=== PATIENT | female | born 1940 | race Caucasian/White ===

== ENCOUNTER → 2020-05-28 09:39 | Outpatient (BNVA) | payer MEDICARE, OTHER, SELFPAY | PROVIDERS: PCP Internal Medicine; Referring Provider Internal Medicine; Visit Provider Internal Medicine Cardiovascular Disease | DX: R06.02 Shortness of breath (principal); I11.9 Hypertensive heart disease without heart failure | CPT/HCPCS: 93000; 93005; 99214 ==

== ENCOUNTER 2020-07-03 06:19 | Outpatient (REF) | payer MEDICARE, OTHER, SELFPAY ==
[2020-07-03 11:43] LABS: Hematocrit 37.6 % (37-47); Hemoglobin 11.6 g/dl (12.0-16.0); Mean Corpuscular HGB Conc 30.9 g/dl (31.0-35.0); Mean Corpuscular Hemoglobin 28.4 pg (27.0-33.0); Mean Corpuscular Volume 92.2 fL (80-98); Mean Platelet Volume 10.7 fL (9.4-12.3); Platelet Count 230 X10*3/uL (160-400); Red Blood Count 4.08 X10*6/uL (4.20-5.50); Red Cell Distribution Width 14.8 % (11.0-16.0); White Blood Count 9.4 X10*3/uL (4.8-10.8)
[2020-07-03 11:54] LABS: Estimated Average Glucose 154 mg/dL
[2020-07-03 11:58] LABS: Creatinine Urine 115.28 mg/dL
[2020-07-03 12:17] LABS: Alanine Aminotransferase 17 U/L (0-31); Alkaline Phosphatase 118 U/L (39-117); Anion Gap 12 (12-20); Aspartate Amino Transferase 16 U/L (5-31); Bilirubin Total 0.5 mg/dL (0.0-1.0); Blood Urea Nitrogen 25 mg/dL (9-16); Calcium 9.1 mg/dL (8.4-10.2); Carbon Dioxide 28 mmol/L (22-29); Chloride 107 mmol/L (96-108); Cholesterol 178 mg/dL; Estimated Glomerular Filt Rate > 60; Glucose Fasting 135 mg/dL (60-99); HDL Cholesterol 38 mg/dL; LDL Cholesterol Calculated 111 mg/dl; Potassium 4.4 mmol/l (3.3-5.1); Sodium 143 mmol/L (135-145); Total Protein 6.5 g/dL (6.5-8.0); Triglycerides 147 mg/dL
== END 2020-07-03 06:20 | disposition home or self-care (01) ==
LOC: HO.HMGCLDS 06:19
PROVIDERS: PCP Internal Medicine; Visit Provider Internal Medicine
DX: M81.0 Age-related osteoporosis without current pathological fracture (principal); E11.9 Type 2 diabetes mellitus without complications; I10 Essential (primary) hypertension
CPT/HCPCS: 36415; 80053; 80061; 82043; 83036; 85027

== ENCOUNTER 2020-07-22 08:21 | Outpatient (REF) | payer MEDICARE, OTHER, SELFPAY | END 2020-07-22 08:22 | disposition home or self-care (01) | LOC: HO.LAB 08:21 | PROVIDERS: PCP Internal Medicine; Visit Provider Internal Medicine | DX: Z20.828 Contact with and (suspected) exposure to other viral communicable diseases (principal) | CPT/HCPCS: C9803; U0003 ==

== ENCOUNTER 2020-11-13 11:01 | Outpatient (REF) | payer MEDICARE, OTHER, SELFPAY ==
--- NOTE | ~2020-11-13 | MM_ITS ---
EXAMINATION: MM SCREENING DIGITAL BREAST TOMOSYNTHESIS, BILATERAL CLINICAL INFORMATION: Screening. Asymptomatic. Status post right lumpectomy. COMPARISON: Mammography: February 27, 2019 and studies dating back to October 06, 2011 TECHNIQUE: Digital breast tomosynthesis is performed in both the craniocaudal and mediolateral oblique views along with computer-aided detection (CAD). Synthesized 2D images are generated from the tomosynthesis. FINDINGS: There are scattered areas of fibroglandular density (ACR BI-RADS breast composition Category b). No new abnormal dominant mass is appreciated. Patient is status post right lumpectomy with postsurgical change. Prominent vascular calcifications are present. MM/MM tomosynthesis screening BI IMPRESSION: There are no significant changes from prior study. ASSESSMENT: BI-RADS 2: Benign RECOMMENDATION: Routine annual mammography screening. This patient's information was entered into a reminder system with a target due date for their next mammogram.
== END 2020-11-13 11:02 | disposition home or self-care (01) ==
LOC: HO.MAMMO 11:01
PROVIDERS: PCP Internal Medicine; Visit Provider Internal Medicine
DX: Z12.31 Encounter for screening mammogram for malignant neoplasm of breast (principal)
CPT/HCPCS: 77063; 77067

== ENCOUNTER → 2021-01-08 10:47 | Outpatient (BNVA) | payer MEDICARE, OTHER, SELFPAY | PROVIDERS: PCP Internal Medicine; Visit Provider Orthopaedic Surgery | DX: M65.331 Trigger finger, right middle finger (principal); M67.441 Ganglion, right hand | CPT/HCPCS: 20550; 99202; J1100 ==

== ENCOUNTER 2021-01-20 09:59 | Outpatient (REF) | payer MEDICARE, OTHER, SELFPAY ==
[2021-01-20 11:26] LABS: Estimated Average Glucose 169 mg/dL; Hemoglobin A1c % 7.5 %
[2021-01-20 11:41] LABS: Alanine Aminotransferase 17 U/L (0-31); Albumin Level 3.9 g/dL (3.5-5.0); Alkaline Phosphatase 95 U/L (39-117); Anion Gap 14 (12-20); Aspartate Amino Transferase 15 U/L (5-31); Bilirubin Total 0.4 mg/dL (0.0-1.0); Blood Urea Nitrogen 15 mg/dL (9-16); Calcium 9.1 mg/dL (8.4-10.2); Carbon Dioxide 23 mmol/L (22-29); Chloride 108 mmol/L (96-108); Estimated Glomerular Filt Rate > 60; Glucose Random 186 mg/dL (60-115); Potassium 4.1 mmol/L (3.3-5.1); Sodium 141 mmol/L (135-145); Total Protein 6.4 g/dL (6.5-8.0)
== END 2021-01-20 10:00 | disposition home or self-care (01) ==
LOC: HO.HMGCLDS 09:59
PROVIDERS: PCP Internal Medicine; Visit Provider Internal Medicine
DX: E11.9 Type 2 diabetes mellitus without complications (principal); I10 Essential (primary) hypertension; M81.0 Age-related osteoporosis without current pathological fracture
CPT/HCPCS: 36415; 80053; 83036

== ENCOUNTER 2021-02-20 12:51 | Outpatient (REF) | payer MEDICARE, OTHER, SELFPAY ==
--- NOTE | ~2021-02-20 | MM_ITS ---
EXAMINATION: BONE DENSITOMETRY CLINICAL INDICATION: Age-related osteoporosis without current pathological fracture. COMPARISON: Previous BD dated 10/25/2018 and baseline BD dated 11/02/2007. TECHNIQUE: Using a POI DXA System (software version: 13.1) manufactured by [employer], dual-energy x-ray absorptiometry was performed of the lumbar spine and left hip. The images are of good technical quality. Summary results are attached. FINDINGS: AP SPINE L1-L3 (excluding L4): The data of L1-L4 has been changed to exclude the L4 vertebral body, because degenerative changes at this level may cause overestimation of lumbar spine density. Current: BMD 1.099 g/cm2, Z-score 1.1, T-score -0.6, normal, 11.6% increase from previous, 8.6% increase from baseline (<5% change is not significant). Prior: BMD 0.985 g/cm2. Baseline: BMD 1.012 g/cm2. LEFT FEMUR, NECK: Current: BMD 0.616 g/cm2, Z-score -0.9, T-score -3.0, osteoporosis. Prior: BMD 0.627 g/cm2. Baseline: BMD 0.752 g/cm2. LEFT FEMUR, TOTAL: Current: BMD 0.680 g/cm2, Z-score -0.6, T-score -2.6, osteoporosis, 3.7% decrease from previous, 16.7% decrease from baseline (<5% change is not significant). Prior: BMD 0.706 g/cm2. Baseline: BMD 0.816 g/cm2. IDENTIFIED RISK FACTORS: Osteoporosis, family history (parental hip fracture). Early menopause, secondary osteoporosis, glucocorticoids (chronic), hysterectomy, bilateral oophorectomy. HISTORY OF FRACTURE: None listed. MEDICATIONS: Calcium supplements or multivitamin, vitamin D. MM/XR DEXA axial skeleton IMPRESSION: 1. DIAGNOSIS: Osteoporosis based on the lowest T-score value of -3.0 in the femoral neck applying World Health Organization criteria. 2. 10-YEAR FRACTURE RISK PREDICTION, FRAX: Major osteoporotic fracture (clinical spine, forearm, hip or shoulder) 59.5%. Hip fracture 50.0%. 3. Treatment Recommendations: NOF guidelines recommend consideration for treatment in postmenopausal women and men age 50 and older presenting with the following: -A hip or vertebral (clinical or morphometric) fracture. -T-score less than or equal to -2.5 at the femoral neck or spine after appropriate evaluation to exclude secondary causes. -Low bone mass at the hip or spine and a 10-year fracture probability by FRAX of greater than or equal to 3% for hip fracture or greater than or equal to 20% for major osteoporotic fracture based on the [place] adapted WHO algorithm. 4. Other Recommendations: All treatment decisions require clinical judgment and consideration of individual patient factors, including patient preferences, comorbidities, previous drug use, risk factors not captured in the FRAX model (e.g. frailty, falls, vitamin D deficiency, increased bone turnover, interval significant decline in bone density) and possible under or overestimation of fracture risk by FRAX. Additional medical evaluation for secondary cause of low bone mineral density may be appropriate. FUTURE SCAN RECOMMENDATION: People with diagnosed cases of osteoporosis or at high risk for fracture should have regular bone mineral density tests. For patients eligible for Medicare, routine testing is allowed once every 2 years. The testing frequency can be increased to one year for patients who have rapidly progressing disease, those who are receiving or discontinuing medical therapy to restore bone mass, or have additional risk factors.
== END 2021-02-20 12:52 | disposition home or self-care (01) ==
LOC: HO.MAMMO 12:51
PROVIDERS: Visit Provider Internal Medicine
DX: Z13.820 Encounter for screening for osteoporosis (principal); M81.0 Age-related osteoporosis without current pathological fracture; E27.49 Other adrenocortical insufficiency; Z87.81 Personal history of (healed) traumatic fracture; Z78.0 Asymptomatic menopausal state; Z98.890 Other specified postprocedural states; Z90.722 Acquired absence of ovaries, bilateral; Z79.899 Other long term (current) drug therapy
CPT/HCPCS: 77080

== ENCOUNTER → 2021-02-25 12:25 | Outpatient (BNVA) | payer MEDICARE, OTHER, SELFPAY | PROVIDERS: PCP Internal Medicine; Visit Provider Orthopaedic Surgery | DX: M67.40 Ganglion, unspecified site (principal); M65.331 Trigger finger, right middle finger | CPT/HCPCS: 99212 ==

== ENCOUNTER 2021-03-13 12:27 | Day surgery (SDC) | payer MEDICARE, OTHER, SELFPAY ==
[2021-03-13 13:26] VITALS: BP 138/57; PULSE 61; RESP 18; TEMP 36.8; O2SAT 97; BMI 28.7
[2021-03-13 13:37] LABS: Glucose, Whole Blood 151 mg/dL (60-115)
--- NOTE | 2021-03-13 15:02 | PC.NURSE ---
PATIENT TRANSFERRED TO PACU. DR. Guanakito KOWALSKI GAVE THE BLOCK AT BEDSIDE. REPORT GIVEN TO AIRPORT SHUTTLE DRIVER.
--- NOTE | 2021-03-13 16:11 | P.OP_ITS ---
Operative Note Operative Note Date of Service: 03/13/21 Narrative: Operative Note Preop diagnosis: 1. Right middle finger Trigger finger Postop diagnosis: 1. Right middle finger Trigger finger Procedure: 1. Right middle finger A1 rikki release Surgeon: Sveta Nelson MD Anesthesia: local block using 1% lidocaine with epinephrine Findings: No locking or catching after A1 rikki release EBL: Less than 5 mL Tourniquet time: None Specimens: None Complications: None Disposition: Brought to recovery room in stable condition Plan: Follow-up for 7-10 days for wound check and suture removal Indications: The patient is 80 years old, with a right middle finger trigger finger that has been unresponsive to nonoperative management. The risks and benefits of operative treatment including but not limited to risk of damage to blood vessels, nerves, tendons, infection, persistent pain, persistent symptoms, recurrence or possible need for additional surgery were discussed with the patient and the patient wishes to proceed with surgery. Procedure: Once consent was obtained a local block was performed in the preop area using a combination of 1% lidocaine with epinephrine. The patient was then brought back to the operating suite and placed on the operative table in supine position. A tourniquet was applied to the proximal aspect of the right upper extremity and the limb was prepped and draped in a standard surgical fashion. Once assured that we had a good block, a 1.5 cm oblique incision was made centered over the A1 rikki of the right middle finger . The incision was made through the skin to the subcutaneous tissues using a #15 blade. Careful dissection was made down to the level of the A1 rikki using tenotomy scissors, with care being taken to protect the nearby neurovascular structures. A longitudinal incision was made in the A1 rikki 1st using a #15 blade, then using tenotomy scissors under direct visualization. The A1 rikki was noted to be thickened. Following our A1 rikki release, we no longer saw any locking or catching of the digit with flexion and extension. Once satisfied with our A1 rikki release the wound was copiously irrigated with normal saline and hemostasis was obtained with a brief period of local pressure. The skin edges were reapproximated with some 5.0 nylon suture material and a sterile dressing was applied. The patient appears to have tolerated the procedure well and with no co mplications. All digits were well vascularized at the conclusion of the case.
--- NOTE | 2021-03-13 16:11 | MHC.SHP ---
Pre-Procedural Eval Section A Date of Service: 03/13/21 The patient is an INPATIENT: No Changes since office visit: No Cold of Flu in the past 2 weeks, No New Medical Problems, No Changes in Medication and No Patient answered all questions The History & Physical has been completed within 30 days and I have reviewed it.: Yes Section B Chief Complaint: trigger finger Allergies: Allergies Allergy/AdvReac Type Severity Reaction Status Date / Time alendronate sodium Allergy Intermediate DIARRHEA Verified 02/25/21 13:04 [From FOSAMAX] ciprofloxacin [CIPROFLOXACIN] Allergy Intermediate HEADACHE,SO Verified 02/25/21 13:04 B hydrochlorothiazide Allergy Intermediate HEADACHE,DIZZINESS, Verified 02/25/21 13:04 [HYDROCHLOROTHIAZIDE] Gi upset levofloxacin [From LEVAQUIN] Allergy Intermediate HEADACHE,SO Verified 02/25/21 13:04 B metformin [METFORMIN] Allergy Intermediate DIARRHEA, Verified 02/25/21 13:04 Gi upset pravastatin [PRAVASTATIN] Allergy Intermediate HEADACHE,SOB, Verified 02/25/21 13:04 Gi upset simvastatin [SIMVASTATIN] Allergy Intermediate HEADACHE,SOB, Verified 02/25/21 13:04 Gi upset canagliflozin [From INVOKANA] AdvReac Intermediate DIARRHEA Verified 02/25/21 13:04 dapagliflozin [From FARXIGA] AdvReac Intermediate DIARRHEA Verified 02/25/21 13:04 From PERCOCET AdvReac Mild NAUSEA Uncoded 01/08/21 11:19 Plan I have reviewed the history and physical and performed a pertinent physical examination on my patient. No changes have occurred unless specified.
[2021-03-13 17:10] VITALS: BP 156/59; PULSE 72; RESP 18; TEMP 36.4; O2SAT 96
[2021-03-13 17:25] VITALS: BP 147/71; PULSE 76; RESP 17; TEMP 36.6; O2SAT 97
== END 2021-03-13 17:33 | disposition home or self-care (01) ==
PROVIDERS: PCP Internal Medicine; Visit Provider Orthopaedic Surgery
PROC: (CPT 26055; principal; 2021-03-13 14:40)
DX: M65.331 Trigger finger, right middle finger (principal); I10 Essential (primary) hypertension; E11.9 Type 2 diabetes mellitus without complications; Z88.8 Allergy status to other drugs, medicaments and biological substances; Z88.1 Allergy status to other antibiotic agents
CPT/HCPCS: 26055; 82947

== ENCOUNTER → 2021-03-24 13:34 | Outpatient (BNVA) | payer MEDICARE, OTHER, SELFPAY | PROVIDERS: Visit Provider Orthopaedic Surgery | DX: Z09 Encounter for follow-up examination after completed treatment for conditions other than malignant neoplasm (principal); Z87.39 Personal history of other diseases of the musculoskeletal system and connective tissue | CPT/HCPCS: 99212 ==

== ENCOUNTER 2021-05-20 06:45 | Outpatient (REF) | payer MEDICARE, OTHER, SELFPAY ==
[2021-05-20 12:00] LABS: Alanine Aminotransferase 19 U/L (0-31); Albumin Level 3.9 g/dL (3.5-5.0); Alkaline Phosphatase 81 U/L (39-117); Anion Gap 11 (12-20); Aspartate Amino Transferase 16 U/L (5-31); Bilirubin Total 0.6 mg/dL (0.0-1.0); Blood Urea Nitrogen 15 mg/dL (9-16); Calcium 9.2 mg/dL (8.4-10.2); Carbon Dioxide 26 mmol/L (22-29); Chloride 108 mmol/L (96-108); Cholesterol 175 mg/dL; Estimated Average Glucose 160 mg/dL; Estimated Glomerular Filt Rate > 60; Glucose Fasting 170 mg/dL (60-99); HDL Cholesterol 37 mg/dL; Hemoglobin A1c % 7.2 %; LDL Cholesterol Calculated 109 mg/dl; Potassium 4.2 mmol/L (3.3-5.1); Sodium 141 mmol/L (135-145); Total Protein 6.4 g/dL (6.5-8.0); Triglycerides 148 mg/dL
[2021-05-20 12:11] LABS: Microalbum/Creatinine Ratio Ur 15.5 ug/mg cr
[2021-05-20 12:22] LABS: TSH reflex Free T4 0.73 uIU/mL (0.32-4.0)
== END 2021-05-20 06:46 | disposition home or self-care (01) ==
LOC: HO.HMGCLDS 06:45
PROVIDERS: PCP Internal Medicine; Visit Provider Internal Medicine
DX: I11.9 Hypertensive heart disease without heart failure (principal); E11.9 Type 2 diabetes mellitus without complications; M81.0 Age-related osteoporosis without current pathological fracture
CPT/HCPCS: 36415; 80053; 80061; 82043; 82306; 83036; 84443

== ENCOUNTER → 2021-05-29 09:51 | Outpatient (BNVA) | payer MEDICARE, OTHER, SELFPAY | PROVIDERS: PCP Internal Medicine; Referring Provider Internal Medicine; Visit Provider Internal Medicine Cardiovascular Disease | DX: I51.89 Other ill-defined heart diseases (principal); R00.2 Palpitations; Z79.899 Other long term (current) drug therapy | CPT/HCPCS: 93005; 99212 ==

== ENCOUNTER → 2021-07-02 13:49 | Outpatient (REF) | payer MEDICARE, OTHER, SELFPAY ==
--- NOTE | 2021-07-02 13:54 | HM_ITS ---
Total monitoring time 12 days and 7 hours. Underlying rhythm is sinus. Minimum heart rate 47/Min. Maximum 111/Min. Average 67/Min. No significant bradycardia or tachycardia. No pauses of significance. No atrial fibrillation or flutter. Rare supraventricular ectopy with minimal burden. Rare ventricular ectopy with minimal burden. No sustained arrhythmias. No patient events. MTDD
--- NOTE | 2021-07-02 13:54 | CA_ITS ---
Transthoracic Echocardiogram Patient (Last, First, Middle): Genie Bowman E Gender: Female Date of : 1940 Age: 80 Procedure Date: 07/02/2021 Procedure Type: Transthoracic Echocardiogram Location: OP Height: 154.94 cm Weight: 68.49 kg BSA: 1.68 m2 Heart Rate: bpm BP: 125 / 58 mmHg Therapeutic Dietitian: CLINTON/CP Referring MD: Torsten Goyal MD Symptoms: I51.89 - Other ill-defined heart diseases Study Quality: Fair ECG Rhythm: Sinus Conclusions: - The left ventricular systolic function is normal. The calculated ejection fraction is 55% by biplane method. - There is mild septal and mild basal asymmetric hypertrophy. - There is mild calcification of the aortic valve. - Small plaque is seen in the sino tubular ridge. Findings Left Ventricle Normal left ventricular cavity size. The left ventricular systolic function is normal. The calculated ejection fraction is 55% by biplane method. There is no evidence of regional wall motion abnormalities. E/E prime ratio is between 8 and 15 consistent with indeterminate filling pressures. Evidence suggests grade I (mild) diastolic dysfunction. There is mild septal and mild basal asymmetric hypertrophy. Right Ventricle Normal right ventricular cavity size and systolic function. Atria Both atria are normal in size. Aortic Valve There is a normal trileaflet aortic valve. There is mild calcification of the aortic valve. There is no aortic valve stenosis. There is trace (trivial) aortic valve regurgitation. Mitral Valve The mitral valve appears normal. There is no mitral valve regurgitation. There is no mitral valve stenosis. Pulmonic Valve The pulmonic valve was not well visualized. Tricuspid Valve Normal tricuspid valve structure. There is trace tricuspid valve regurgitation. The pulmonary artery systolic pressure is normal. Great Vessels The asc aorta and aortic arch are normal in size. Small plaque is seen in the sino tubular ridge. Venous The inferior vena cava was not well visualized. The inferior vena cava is normal in size. Pericardium/Pleural There is no evidence of pericardial effusion. Prior Study Comparison No significant change compared to prior study dated: 04/17/2019. Measurements 2D Linear Measurements IVSd: 1.20 0.6-0.9/0.6-1.0 cm LVIDd: 3.64 3.9-5.3/4.2-5.9 cm LVIDd Index: 2.17 2.4-3.2/2.2-3.1 cm/m2 LVIDs: 2.62 2.0-3.6 cm LVPWd: 0.75 0.7-1.1 cm Ao Root: 3.20 2.1-3.5 cm LA Diam: 3.40 2.7-3.8/3.0-4.0 cm LAIDs Index: 2.02 1.5-2.3 cm/m2 LV Mass: 131.51 67-162/88-224 g LV Mass Index: 78.28 43-95/49-115 g/m2 LVOT Diam: 2.00 3.0+(-)1.3 cm 2D Systolic Function EF 4C: 54.10 >55% EF 2C: 57.50 >55% EF BiP: 55.00 >55% Mitral Valve MV Pk E: 0.80 MV PK A: 1.04 MV Decel Time: 299.00 E/A: 0.80 E'Lateral: 5.55 E'Medial: 5.00 E/E' Med: 15.90 E/E' Lat: 14.30 PHT: 88.00 MVA PHT: 2.50 Decel Wake: 2.66 Aortic Valve AoV Pk Kareem: 1.66 AoV Mn Kareem: 1.09 AoV VTI: 0.38 AoV Pk Grad: 11.00 Aov Mn Grad: 6.00 MECCA Cont.VTI: 1.84 LVOT LVOT Pk Kareem: 1.04 LVOT Mn Kareem: 0.62 LVOT VTI: 0.22 LVOT Pk Grad: 4.00 LVOT Mn Grad: 2.00 LVOT Diam: 2.00 LVOT Area: 3.14 Diastolic Function MV Pk E: 0.80 MV Pk A: 1.04 E/A: 0.80 E'Medial: 5.00 E/E' Med: 15.90 E' Laterial: 5.55 E/E' Lat: 14.30 Right Ventricle TAPSE (mm): 1.99 TVS' Kareem: 10.60 Tricuspid Valve TR Pk Kareem: 2.25 TR Pk Grad: 20.00 RA Press: 3.00 RVSP: 23.00 Great Vessels Aorta Ao Root-2D: 3.20 2.0-3.7 cm Ao Asc: 3.50 2.1-3.4 cm Ao Arch: 2.30 Updated in Other Vendor System with Status of Final Santosh Garcia MD electronically signed on 07/03/2021 3:46:24 PM with status of Final
== END ==
LOC: HO.CARD 13:49
PROVIDERS: Visit Provider Internal Medicine Cardiovascular Disease
DX: I51.89 Other ill-defined heart diseases (principal); R00.2 Palpitations
CPT/HCPCS: 93246; 93306

== ENCOUNTER → 2021-08-07 14:15 | Outpatient (BNVA) | payer MEDICARE, OTHER, SELFPAY | PROVIDERS: PCP Internal Medicine; Referring Provider Internal Medicine; Visit Provider Internal Medicine Cardiovascular Disease | DX: R06.02 Shortness of breath (principal) | CPT/HCPCS: 99212 ==

== ENCOUNTER 2021-11-03 06:47 | Outpatient (REF) | payer MEDICARE, OTHER, SELFPAY ==
[2021-11-03 12:32] LABS: Alanine Aminotransferase 20 U/L (0-31); Alkaline Phosphatase 79 U/L (39-117); Anion Gap 12 (12-20); Aspartate Amino Transferase 15 U/L (5-31); Bilirubin Total 0.5 mg/dL (0.0-1.0); Blood Urea Nitrogen 19 mg/dL (9-16); Calcium 9.8 mg/dL (8.4-10.2); Carbon Dioxide 27 mmol/L (22-29); Chloride 105 mmol/L (96-108); Cholesterol 169 mg/dL; Estimated Glomerular Filt Rate > 60; Glucose Fasting 168 mg/dL (60-99); HDL Cholesterol 39 mg/dL; LDL Cholesterol Calculated 104 mg/dl; Potassium 4.1 mmol/L (3.3-5.1); Sodium 140 mmol/L (135-145); Total Protein 6.6 g/dL (6.5-8.0); Triglycerides 133 mg/dL
[2021-11-03 12:58] LABS: Estimated Average Glucose 169 mg/dL; Hemoglobin A1c % 7.5 %
[2021-11-03 13:15] LABS: Folate 12.1 ng/mL (> or = 4.0); Vitamin B12 1534 pg/mL (200-900)
== END 2021-11-03 06:48 | disposition home or self-care (01) ==
LOC: HO.HMGCLDS 06:47
PROVIDERS: Visit Provider Internal Medicine
DX: M81.0 Age-related osteoporosis without current pathological fracture (principal); I51.89 Other ill-defined heart diseases; I10 Essential (primary) hypertension; E11.9 Type 2 diabetes mellitus without complications
CPT/HCPCS: 36415; 80053; 80061; 82607; 82746; 83036

== ENCOUNTER 2021-11-05 07:53 | Outpatient (REF) | payer MEDICARE, OTHER, SELFPAY ==
[2021-11-05 12:09] LABS: Creatinine Urine 126.55 mg/dL; Microalbum/Creatinine Ratio Ur 17.3 ug/mg cr
== END 2021-11-05 07:54 | disposition home or self-care (01) ==
LOC: HO.HMGCLDS 07:53
PROVIDERS: Visit Provider Internal Medicine
DX: M81.0 Age-related osteoporosis without current pathological fracture (principal); E11.9 Type 2 diabetes mellitus without complications; I11.0 Hypertensive heart disease with heart failure
CPT/HCPCS: 82043

== ENCOUNTER 2022-02-05 11:00 | Outpatient (REF) | payer MEDICARE, OTHER, SELFPAY ==
--- NOTE | ~2022-02-05 | MM_ITS ---
EXAMINATION: MM SCREENING DIGITAL BREAST TOMOSYNTHESIS, BILATERAL CLINICAL INFORMATION: Screening. Asymptomatic. History right lumpectomy for breast cancer, 2004. COMPARISON: Mammography: 11/13/2020, 02/27/2019, 02/10/2018 TECHNIQUE: Digital breast tomosynthesis is performed in both the craniocaudal and mediolateral oblique views along with computer-aided detection (CAD). Synthesized 2D images are generated from the tomosynthesis. FINDINGS: There are scattered areas of fibroglandular density (ACR BI-RADS breast composition Category b). There are no significant masses, abnormal calcifications, or other abnormalities. Postsurgical changes right breast are similar to prior studies. There are scattered bilateral predominantly vascular calcifications. Skin contours are smooth. No significant changes. MM/MM tomosynthesis screening BI IMPRESSION: No mammographic evidence of malignancy. No significant changes from prior exams. ASSESSMENT: BI-RADS 2: Benign RECOMMENDATION: Routine annual mammography screening. This patient's information was entered into a reminder system with a target due date for their next mammogram.
== END 2022-02-05 11:01 | disposition home or self-care (01) ==
LOC: HO.MAMMO 11:00
PROVIDERS: PCP Internal Medicine; Visit Provider Internal Medicine
DX: Z12.31 Encounter for screening mammogram for malignant neoplasm of breast (principal)
CPT/HCPCS: 77063; 77067

== ENCOUNTER 2022-03-02 06:31 | Outpatient (REF) | payer MEDICARE, OTHER, SELFPAY ==
[2022-03-02 12:20] LABS: Alanine Aminotransferase 17 U/L (0-31); Albumin Level 3.9 g/dL (3.5-5.0); Alkaline Phosphatase 82 U/L (39-117); Anion Gap 14 (12-20); Aspartate Amino Transferase 13 U/L (5-31); Bilirubin Total 0.4 mg/dL (0.0-1.0); Blood Urea Nitrogen 19 mg/dL (9-16); Calcium 9.4 mg/dL (8.4-10.2); Carbon Dioxide 25 mmol/L (22-29); Chloride 106 mmol/L (96-108); Cholesterol 193 mg/dL; Estimated Glomerular Filt Rate > 60; Glucose Fasting 184 mg/dL (60-99); HDL Cholesterol 43 mg/dL; LDL Cholesterol Calculated 118 mg/dl; Potassium 4.2 mmol/L (3.3-5.1); Sodium 141 mmol/L (135-145); Total Protein 6.6 g/dL (6.5-8.0); Triglycerides 164 mg/dL
[2022-03-02 12:28] LABS: Estimated Average Glucose 169 mg/dL; Hemoglobin A1c % 7.5 %
[2022-03-02 12:32] LABS: Creatinine Urine 106.31 mg/dL; Microalbum/Creatinine Ratio Ur 15.9 ug/mg cr
== END 2022-03-02 06:32 | disposition home or self-care (01) ==
LOC: HO.HMGCLDS 06:31
PROVIDERS: PCP Internal Medicine; Visit Provider Internal Medicine
DX: E11.9 Type 2 diabetes mellitus without complications (principal); I10 Essential (primary) hypertension; M81.0 Age-related osteoporosis without current pathological fracture
CPT/HCPCS: 36415; 80053; 80061; 82043; 83036

== ENCOUNTER → 2022-08-05 12:17 | Outpatient (BNVA) | payer MEDICARE, OTHER, SELFPAY | PROVIDERS: PCP Internal Medicine; Referring Provider Internal Medicine; Visit Provider Internal Medicine Cardiovascular Disease | DX: I51.89 Other ill-defined heart diseases (principal) | CPT/HCPCS: 93005; 99212 ==

== ENCOUNTER 2022-09-02 06:28 | Outpatient (REF) | payer MEDICARE, OTHER, SELFPAY ==
[2022-09-02 12:03] LABS: Estimated Average Glucose 171 mg/dL; Hemoglobin A1c % 7.6 %
[2022-09-02 12:13] LABS: Alanine Aminotransferase 13 U/L (0-31); Albumin Level 3.8 g/dL (3.5-5.0); Alkaline Phosphatase 101 U/L (39-117); Anion Gap 12 (12-20); Aspartate Amino Transferase 15 U/L (5-31); Bilirubin Total 0.5 mg/dL (0.0-1.0); Blood Urea Nitrogen 17 mg/dL (9-16); Calcium 9.4 mg/dL (8.4-10.2); Carbon Dioxide 26 mmol/L (22-29); Chloride 106 mmol/L (96-108); Cholesterol 186 mg/dL; Estimated Glomerular Filt Rate > 60; Glucose Fasting 172 mg/dL (60-99); HDL Cholesterol 37 mg/dL; LDL Cholesterol Calculated 124 mg/dl; Potassium 3.8 mmol/L (3.3-5.1); Sodium 140 mmol/L (135-145); Total Protein 6.3 g/dL (6.5-8.0); Triglycerides 127 mg/dL
[2022-09-02 12:24] LABS: Folate 11.7 ng/mL (> or = 4.0); Vitamin B12 1641 pg/mL (200-900); Vitamin D 25-OH Total 59.6 ng/mL (>30)
== END 2022-09-02 06:29 | disposition home or self-care (01) ==
LOC: HO.HMGCLDS 06:28
PROVIDERS: PCP Internal Medicine; Visit Provider Internal Medicine
DX: E53.8 Deficiency of other specified B group vitamins (principal); E55.9 Vitamin D deficiency, unspecified; I10 Essential (primary) hypertension; E11.9 Type 2 diabetes mellitus without complications
CPT/HCPCS: 36415; 80053; 80061; 82306; 82607; 82746; 83036

== ENCOUNTER 2022-11-16 09:39 | Emergency (ER) | payer MEDICARE, OTHER, SELFPAY ==
--- NOTE | ~2022-11-16 | CT_ITS ---
EXAMINATION: CT ABDOMEN AND PELVIS WITHOUT CONTRAST CLINICAL INFORMATION: Abdominal pain COMPARISON: MRI abdomen 09/29/2017, CT abdomen 09/13/2017. TECHNIQUE: Multidetector volumetric imaging was performed from the superior aspect of the liver through the pubic symphysis. Sagittal and coronal reformatted images were obtained on the technologist's workstation. This CT examination was performed using dose optimization techniques as appropriate, variously including the following: *Automated exposure control *Adjustment of mA and/or kV according to patient size (this includes techniques or standardized protocols for targeted exams where dose is matched to indication/reason for exam; i.e. extremities or head) *Use of iterative reconstruction technique DLP: 464 mGy-cm FINDINGS: LUNG BASES: The visualized lung bases are unremarkable. Spiculated lesion seen in the right lung base on 2018 CT is not seen at this time. Heart size is normal. A small hiatal hernia is visualized. LIVER, GALLBLADDER, AND BILIARY TREE: The liver is normal in size, shape, and attenuation. No focal hepatic lesion or biliary ductal dilatation is present. The gallbladder is unremarkable with no evidence of radiopaque gallstones, gallbladder wall thickening, or obvious pericholecystic inflammatory changes. PANCREAS: Again visualized is a round hypodense lesion more in the body of the pancreas than the left of midline at this time. It measures 2.3 x 2.3 cm and 6 Hounsfield units likely a simple cyst. Previously it measured 1.4 x 1.7 cm and before that in 2016 measured 1.0 x 1.2 cm. It has been gradually increasing no enhancement or wall thickness seen. Rest the pancreas is atrophic. SPLEEN: Unremarkable. ADRENAL GLANDS: Unremarkable. KIDNEYS AND URETERS: The kidneys are normal in size, shape, and attenuation. No hydronephrosis, hydroureter, or calculi seen. No perinephric stranding. There is 1.6 cm lower pole and a partially exophytic 1.8 cm mid to lower pole left kidney cyst is a 1.2 cm hypodensity mid pole cortex left kidney probable angiomyolipoma. BLADDER: Unremarkable. GASTROINTESTINAL TRACT: There is moderate scattered stool, diverticuli seen and gas seen throughout the colon without distention. The small bowel loops are normal caliber. ABDOMINAL WALL: No significant hernia is appreciated. LYMPH NODES: Normal. VASCULAR: Mild atherosclerotic calcification of abdominal aorta without aneurysmal dilatation. PELVIC VISCERA: Unremarkable. OSSEOUS STRUCTURES: There is mild levoscoliosis with moderate ventral spondylosis L2-L3, L3-L4 disc levels. No aggressive lytic or sclerotic process seen. CT/CT abdomen pelvis wo IV con IMPRESSION: 1. No acute intra-abdominal process seen. 2. Moderate constipation with scattered colonic diverticulosis without diverticulitis. 3. 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 4. Small hiatal hernia is stable. 5. The spiculated lesion seen in the right lung base on the previous CT abdomen exam is not seen at this time. 6. 6. Cystic pancreatic lesion has slightly increased in size but most suggestive presence simple pancreatic cyst. IPMN is not excluded. Fleischner guidelines were followed.
[2022-11-16 09:43] VITALS: BP 144/76; PULSE 80; RESP 18; TEMP 36.6; O2SAT 97; BMI 27.0
[2022-11-16 10:13] LABS: MANUAL DIFF FLAG NO
[2022-11-16 10:14] LABS: Basophils Percent Auto 0.5 % (0-2); Eosinophils Absolute Auto 0.1 X10*3/uL (0.0-0.4); Eosinophils Percent Auto 1.6 % (0-4); Hematocrit 37.7 % (37.0-47.0); Hemoglobin 12.1 g/dl (12.0-16.0); Imm Gran Abs Auto 0.02 X10*3/uL (0.00-0.03); Imm Gran Pct Auto 0.3 % (0.0-0.4); Lymphocytes Absolute Auto 1.7 X10*3/uL (1.2-4.9); Lymphocytes Percent Auto 21.5 % (20-40); Mean Corpuscular HGB Conc 32.1 g/dl (31.0-35.0); Mean Corpuscular Hemoglobin 29.3 pg (27.0-33.0); Mean Corpuscular Volume 91.3 fL (80.0-98.0); Mean Platelet Volume 9.8 fL (9.4-12.3); Monocytes Absolute Auto 0.7 X10*3/uL (0.1-1.2); Monocytes Percent Auto 8.4 % (2-11); Neutrophils Absolute Auto 5.3 x10*3/uL (2.0-8.3); Neutrophils Percent Auto 67.7 % (45-73); Platelet Count 173 X10*3/uL (160-400); Red Blood Count 4.13 X10*6/uL (4.20-5.50); White Blood Count 7.9 X10*3/uL (4.8-10.8)
[2022-11-16 10:32] LABS: Alanine Aminotransferase 19 U/L (0-31); Alkaline Phosphatase 88 U/L (39-117); Anion Gap 13 (12-20); Aspartate Amino Transferase 18 U/L (5-31); Bilirubin Total 0.5 mg/dL (0.0-1.0); Blood Urea Nitrogen 14 mg/dL (9-16); Calcium 9.1 mg/dL (8.4-10.2); Carbon Dioxide 24 mmol/L (22-29); Chloride 109 mmol/L (96-108); Creatinine Clr Calc Pharmacy 46.8; Estimated Glomerular Filt Rate > 60; Glucose Random 224 mg/dL (60-115); Potassium 4.5 mmol/L (3.3-5.1); Sodium 141 mmol/L (135-145); Total Protein 6.6 g/dL (6.5-8.0)
--- OUTSIDE RECORDS SUMMARY | 2022-11-16 10:53 | XMS_ITS ---
Author Name Oniel Gomes Address [address] [place] [address] Organization [facility] Address [address] [place] [address] Care Team Providers Care Mold Changer Name Role Phone Oniel Gomes Unavailable [phone] PROBLEMS Type Condition ICD9-CM Code TUN07-NH Code Onset Dates Condition Status SNOMED Code Problem Hypertension, unspecified type I10 Active 47335229 Problem Pancreatic cyst K86.2 Active 32556397 Problem Abdominal pain, left lower quadrant R10.32 Active 459459887 Problem Irritable bowel syndrome, unspecified type K58.9 Active 22950676 ALLERGIES Substance Reaction Event Type Date Status Alendronate Sodium Unknown Drug Allergy November, Ac tive Hydrochlorothiazide Unknown Drug Allergy November, A ctive Levaquin Unknown Drug Allergy November, Active Invokana Unknown Drug Allergy November, Active Atorvastatin Calcium Unknown Drug Allergy November, Active Simvastatin Unknown Drug Allergy November, Active Metformin HCl Unknown Drug Allergy November, Active Farxiga Unknown Drug Allergy November, Active sensative to most statins-no real allergy diarrhea Non Drug Allergy November, Active Cephalexin Unknown Drug Allergy November, Active Bactrim Unknown Drug Allergy November, Active Pravastatin Sodium Unknown Drug Allergy November, Ac tive ENCOUNTERS Encounter Location Date Diagnosis [facility] [address] [place] [address] November, [facility] [address] [place] [address] Oct, [facility] [address] [place] [address] November, Pancreatic cyst K86.2 ; Hypertension, unspecified type I10 and Irritable bowel syndrome, unspecified type K58.9 [facility] [address] [place] [address] May, Hypertension, unspecified type I10 ; Irritable bowel syndrome, unspecified type K58.9 and Abdominal pain, left lower quadrant R10.32 [facility] [address] [place] [address] May, Irritable bowel syndrome 564.1 ; Diarrhea 787.91 ; History of adenomatous polyp of colon V12.72 and GERD (gastroesophageal reflux disease) 530.81 [facility] [address] [place] [address] Apr, [facility] [address] [place] [phone] Jun, [facility] [address], [place] [id number] Mar, [facility] [address], [place] [phone] Mar, [facility] [address] [place], [place] [phone] November, IMMUNIZATIONS Vaccine Route Administration Date Status Flu vaccine no Preserv 3 and > Unknown Apr 27, 2 017 Administered SOCIAL HISTORY Never Assessed REASON FOR REFERRAL FUNCTIONAL STATUS PLAN OF CARE Activity Details VITAL SIGNS Weight 159 lbs 2017-12-09 Weight 154 lbs 2017-05-07 Weight 157 lbs 2012-05-04 Height 60.50 in 2017-12-09 Height 60.50 in 2017-05-07 Height 60.50 in 2012-05-04 BMI 30.54 kg/m2 2017-12-09 BMI 29.58 kg/m2 2017-05-07 BMI 30.15 kg/m2 2012-05-04 Heart Rate 72 /min 2017-05-07 Blood pressure systolic 144 mm Hg Blood pressure diastolic 62 mm Hg 2017-11 MEDICATIONS Medication Instructions Dosage Frequency Start Date End Date Duration Status Fish Oil 1200 MG Orally Once a day 1 capsule 24h Active Calcium 500 MG Orally Once a day 1 tablet with meals 24h Active Montelukast Sodium 10 MG Orally Once a day 1 tablet 24h Active dilTIAZem HCl ER 240 MG Orally Once a day 1 capsule on an empty stomach in the morning 24h Active Vitamin C 1000 MG Orally Once a day 1 tablet 24h Active Aspir-81 81 MG Orally Once a day 1 tablet 24h Active Omeprazole 20 MG Orally Once a day 1 capsule 24h Active ProAir HFA 108 (90 Base) MCG/ACT Inhalation every 4 hrs 2 puffs as needed 4h Active Vitamin B12 1000 MCG Orally Once a day 1 tablet 24h Active Flovent HFA 220 MCG/ACT Inhalation Twice a day 2 puffs 12h Active Januvia 100 MG Orally Once a day 1 tablet 24h Active Gas-X 80 MG Orally prn 1 tablet after meals and at bedtime as needed Active Melatonin 300 MCG Orally prn 1 tablet at bedtime as needed with food Active Arthritis Pain 650 MG Orally every 8 hrs/prn 2 tablets as needed Active Methenamine Hippurate 1 GM Orally Twice a day 1 tablet 12h Active Vitamin D 1000 UNIT Orally Once a day 1 tablet 24h Active glipiZIDE ER 2.5 MG Orally Once a day 3 tablet 24h Active Vitamin E 500 UNIT/GM Orally Once a day 1 tablet 24h Active Losartan Potassium 100 MG Orally Once a day 1 tablet 24h Active PROCEDURES Procedure Date Ordered Result Body Site DOC MEDS VERIFIED W/PT OR RE December 09, 2017 BMI >=30 CALCUATE W/FOLLOWUP December 09, 2017 DOC MEDS VERIFIED W/PT OR RE May 07, 2017 BMI >=30 CALCUATE W/FOLLOWUP May 07, 2017 FLU IMMUNIZE ORDER/ADMIN May 07, 2017 FLU IMMUNIZE ORDER/ADMIN December 09, 2017 BP SCR PRFRM RCMDD DEFIND SCR INTVL May 07, 2017 PRES/ABSN URINE INCON ASSESS May 07, 2017 BP SCR PRFRM RCMDD DEFIND SCR INTVL December 09, 2017 PRES/ABSN URINE INCON ASSESS December 09, 2017 TOBACCO NON-USER May 07, 2017 TOBACCO NON-USER December 09, 2017 RESULTS Name Result Date Reference Range MRI ABDOMEN WOW CONT 2017-10-01 REASON FOR VISIT left upper abd pain, gas, IS EATING MORE GRAIN, left abd pain , Patient presents today for IBS, PATIENT PRESENTS TODAY FOR Side abd pain, change in bowel movements, pain on side,rectal bleeding, SOONAPPT. Insurance Providers Health Insurance Type Health Plan Insurance Address Health Plan Insurance Phone Health Plan Insurance Name Health Plan Coverage Dates Member ID Patient Relationship to Subscriber Patient Address Patient Phone Patient Name Patient Date of Subscriber ID Subscriber Name Subscriber Date of Group No UMR [address] [address] [facility] [id number] UMR self HOODDAVID FREDERICK [id number] [facility] [address] [place] [address] [place] HOOD LUCRECIA FREDERICK [id number] MEDICARE OF [place] [address] [facility] [address] MEDICARE OF [place] jaida HOOD FREDERICK [id number]
--- NOTE | 2022-11-16 11:04 | ED_ITS ---
HPI - Abdominal Pain General Chief Complaint: Abdominal Pain Stated Complaint: Back pain/Recent UTI Time Seen by Provider: 11/16/22 10:43 Source: patient and family (Brother) Mode of arrival: ambulatory Limitations: no limitations History of Present Illness HPI narrative: 82-year-old female came in for evaluation of abdominal pain, patient has been diagnosed with viral infection and UTI in the past month patient just finish course of antibiotic for UTI came in with abdominal pain and back pain evaluation that started few weeks ago, pain has been constant, no fever, no chills, no association with other symptoms. Patient was history of cholecystectomy, appendectomy, hysterectomy. Related Data Home Medications Medication Instructions Recorded Confirmed albuterol sulfate 0.63 mg/3 mL mg inhalation TID 05/28/20 09/08/22 solution for nebulization ascorbic acid (vitamin C) 500 mg mg PO 05/28/20 09/08/22 capsule aspirin 81 mg tablet,delayed 81 mg PO DAILY 05/28/20 09/08/22 release (Adult Low Dose Aspirin) fluticasone propionate 220 2 puff PO BID 05/28/20 09/08/22 mcg/actuation HFA aerosol inhaler lactobacillus combination no.9 4 4,000 mmu cells PO DAILY 05/28/20 09/08/22 billion cell capsule (Adult 50 Plus Probiotic) mecobalamin (vitamin B12) 1,000 1,000 mcg sublingual DAILY 05/28/20 09/08/22 mcg disintegrating tablet,sublingual methenamine hippurate 1 gram tablet 1 g PO BID 05/28/20 09/08/22 omega-3 fatty acids-fish oil 360 1 cap PO DAILY 05/28/20 09/08/22 mg-1,200 mg capsule (Fish Oil) blood sugar diagnostic #10 ea 07/15/20 09/08/22 albuterol sulfate 90 mcg/actuation inhalation 01/08/21 09/08/22 aerosol inhaler polaprezinc (zinc carnosine) PO 08/28/21 09/08/22 Previous Rx's Medication Instructions Recorded montelukast 10 mg tablet 10 mg PO DAILY #90 tabs 08/07/21 omeprazole 20 mg capsule,delayed 20 mg PO DAILY #90 caps 09/09/21 release denosumab 60 mg/mL subcutaneous 60 mg subcut [id number] #1 mL 11/11/21 syringe glipizide 10 mg tablet, extended 10 mg PO BID #180 tabs 03/10/22 release 24 hr blood sugar diagnostic #100 ea 08/10/22 diltiazem HCl 240 mg 240 mg PO DAILY #90 caps 08/26/22 capsule,extended release 24 hr dulaglutide 3 mg/0.5 mL 3 mg (0.5 mL) subcut QWEEK #6 mL 09/08/22 subcutaneous pen injector (Trulicity) sitagliptin phosphate 100 mg 100 mg PO DAILY #90 tabs 09/18/22 tablet (Januvia) losartan 100 mg tablet 100 mg PO DAILY #90 tabs 10/26/22 cefuroxime axetil 500 mg tablet 500 mg PO BID #14 tabs 11/16/22 Allergies Allergy/AdvReac Type Severity Reaction Status Date / Time alendronate sodium Allergy Intermediate DIARRHEA Verified 09/08/22 10:38 [From FOSAMAX] ciprofloxacin [CIPROFLOXACIN] Allergy Intermediate HEADACHE,SO Verified 09/08/22 10:38 B hydrochlorothiazide Allergy Intermediate HEADACHE,DIZZINESS, Verified 09/08/22 10:38 [HYDROCHLOROTHIAZIDE] Gi upset levofloxacin [From LEVAQUIN] Allergy Intermediate HEADACHE,SO Verified 09/08/22 10:38 B metformin [METFORMIN] Allergy Intermediate DIARRHEA, Verified 09/08/22 10:38 Gi upset pravastatin [PRAVASTATIN] Allergy Intermediate HEADACHE,SOB, Verified 09/08/22 10:38 Gi upset simvastatin [SIMVASTATIN] Allergy Intermediate HEADACHE,SOB, Verified 09/08/22 10:38 Gi upset canagliflozin [From INVOKANA] AdvReac Intermediate DIARRHEA Verified 09/08/22 10:38 dapagliflozin [From FARXIGA] AdvReac Intermediate DIARRHEA Verified 09/08/22 10:38 From PERCOCET AdvReac Mild NAUSEA Uncoded 09/08/22 10:38 Review of Systems Review of Systems All other systems are reviewed and are negative Constitutional: Reports as per HPI and Reports no additional constitutional complaints Eyes: Reports as per HPI and Reports no additional eye complaints Reports system reviewed and no additional complaints, except as documented Cardiovascular: Reports as per HPI and Reports no additional cardiovascular complaints Respiratory: Reports as per HPI and Reports no additional respiratory complaints Gastrointestinal: Reports as per HPI and Reports no additional gastrointestinal complaints Genitourinary: Reports no additional female genitourinary complaints Musculoskeletal: Reports no additional musculoskeletal complaints Skin/Breast: Reports system reviewed and no additional complaints, except as docu Psychiatric: Reports no additional psychiatric complaints Endocrine: Reports no additional endocrine complaints Hematologic/Lymphatic: Reports no additional hematologic/lymphatic complaints Allergic/Immunologic: Reports no additional allergic/immunologic complaints Reports system reviewed and no additional complaints, except as documented and Reports Abnormal speech present [facility] Past Medical History Medical History Annual physical exam Asthma Diabetes mellitus Diastolic dysfunction Family history of total abdominal hysterectomy and bilateral salpingo- oophorectomy (JOANA-BSO) HTN (hypertension) Surgical History History of bladder suspension procedure History of lumpectomy of right breast History of trigger finger History of urethrocutaneous fistula Hx of appendectomy Hx of bilateral cataract extraction Hx of section Hx of hysterectomy Family History Family History Father CAD (coronary artery disease) Mother Parkinson disease Mental health disorder Brother Diabetes Melanoma Social History Social History Housing: House Alcohol intake: current Alcohol intake frequency: does not drink Patient Tobacco Use Status: Never used Tobacco Smoked in Last 30 Days: No e-Cigarette/Vaping Use: Never Used Second Hand Smoke Exposure: No Use of substances other than those prescribed or required for medical reasons: No Advance Directives: No Advance Directives Information Provided: Yes service: No Current occupational status: retired 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 Blood pressure normal. Heart rate normal. Respiration rate normal. Temperature normal. Oxygen saturation normal. Appearance: Alert. Oriented X3. No acute distress. Head: Normal external exam. Normocephalic. Atraumatic. No Briones signs noted. No raccoon eyes noted Eyes: PERRLA. EOMI. Conjunctiva and sclera normal. Eyelids normal. ENT: TM's Normal. Pharynx normal. Uvula midline. Moist mucous membranes. No trismus noted. No drooling noted. No muffled voice noted. Neck: Normal inspection. Neck supple. FROM. No adenopathy. Thyroid Normal. No meningeal signs. No neck mass noted. CVS: Normal heart rate and rhythm. Heart sound normal. No murmurs noted. Pulses normal throughout. Respiratory: No respiratory distress. Painless inspiration. Breath sounds normal. No wheezes/rales/rhonchi noted. Chest nontender. No accessory muscle usage noted or decreased air movement noted. Abdomen: Soft and nontender. Bowel sounds normal in all 4 quadrants. No distention noted. No organomegaly noted. No visible injury noted. Back: No CVA tenderness. Full range of motion noted. Skin: Skin warm and dry. Normal skin color. Normal skin turgor. No rashes/lesions/lacerations noted. Extremities: No lower extremity edema. Extremities exhibit normal range of motion. Extremities nontender. Neuro: Oriented X 3. Cranial nerve exam: II-XII are grossly intact No motor deficit. No sensory deficit. Reflexes normal. Medical Decision Making Medical Decision Making [facility] Narrative: 82-year-old female came in for evaluation of nonspecific abdominal pain/back pain, patient still have a UTI on my (just finish a course of Keflex) will start the patient on cefuroxime and drink plenty of fluids. Incidental finding of pancreatic cyst patient was instructed to follow-up with her PCP as an outpatient for further follow-up. Differential Diagnosis Differential Diagnoses: The differential diagnosis associated with the presentation includes (Kidney stone, pyelonephritis, back pain, UTI, electrolyte abnormalities, end-organ damage.) Lab Data [facility] Lab Attestation statement: I reviewed the patient's lab results. 11/16/22 10:08 11/16/22 10:08 Labs: Lab Results 11/16/22 11/16/22 11/16/22 Range/Units 10:08 10:08 11:20 WBC 7.9 (4.8-10.8) X10*3/uL RBC 4.13 L (4.20-5.50) X10*6/uL Hgb 12.1 (12.0-16.0) g/dl Hct 37.7 (37.0-47.0) % MCV 91.3 (80.0-98.0) fL MCH 29.3 (27.0-33.0) pg MCHC 32.1 (31.0-35.0) g/dl RDW 14.0 (11.0-16.0) % Plt Count 173 (160-400) X10*3/uL MPV 9.8 (9.4-12.3) fL Immature Gran % (Auto) 0.3 (0.0-0.4) % Neut % (Auto) 67.7 (45-73) % Lymph % (Auto) 21.5 (20-40) % [place] % (Auto) 8.4 (2-11) % Eos % (Auto) 1.6 (0-4) % Baso % (Auto) 0.5 (0-2) % Lymph # (Auto) 1.7 (1.2-4.9) X10*3/uL [place] # (Auto) 0.7 (0.1-1.2) X10*3/uL Eos # (Auto) 0.1 (0.0-0.4) X10*3/uL Baso # (Auto) 0.0 (0.0-0.2) X10*3/uL Abs Immat Gran (auto) 0.02 (0.00-0.03) X10*3/uL Absolute Neuts (auto) 5.3 (2.0-8.3) x10*3/uL Absolute Nucleated RBC 0.000 (0.0-0.012) X10*3/uL Nucleated RBC % (auto) 0.0 (0.0-0.2) /100WBC Sodium 141 (135-145) mmol/L Potassium 4.5 (3.3-5.1) mmol/L Chloride 109 H (96-108) mmol/L Carbon Dioxide 24 (22-29) mmol/L Anion Gap 13 (12-20) BUN 14 (9-16) mg/dL Creatinine 0.77 (0.5-1.4) mg/dL Estim Creat Clear Calc 46.8 Estimated GFR > 60 Random Glucose 224 H (60-115) mg/dL Calcium 9.1 (8.4-10.2) mg/dL Total Bilirubin 0.5 (0.0-1.0) mg/dL AST 18 (5-31) U/L ALT 19 (0-31) U/L Alkaline Phosphatase 88 (39-117) U/L Total Protein 6.6 (6.5-8.0) g/dL Albumin 4.0 (3.5-5.0) g/dL Urine Color Yellow Urine Appearance Cloudy Urine pH 6.0 (5.0-9.0) Ur Specific [place] 1.020 (1.005-1.025) Urine Protein Negative (Neg-Trace) mg/dL Urine Glucose (UA) 500 H (Negative) mg/dL Urine Ketones Negative (Negative) mg/dL Urine Blood Negative (Negative) Urine Nitrite Negative (Negative) Ur Leukocyte Esterase Moderate (2+) H (Negative) Urine RBC 0-2 (0-2) /HPF Urine WBC 21-50 H (0-5) /HPF Ur Squamous Epith Cells >20 (0-2) /HPF Urine Bacteria 1+ (None Seen) Hyaline Casts 0-2 (0-2) /LPF Independent Interpretation I performed an independent interpretation of an: CT Scan (Abdomen and pelvis:. No acute intra-abdominal process seen. 2. Moderate constipation with scattered colonic diverticulosis without diverticulitis. 3. 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 4. Small hiatal hernia is stable. 5. The spiculated lesion seen in the right lung base on the pre) Radiology Impression Discussion of test interpretation with radiology: I have reviewed the radiologist's reading. Discharge Plan Discharge Clinical Impression: Abdominal pain, Acute UTI, Pancreas cyst Patient Disposition: Home, Self-Care Instructions: Urinary Tract Infection in Women (DC) Additional Instructions: Have a cystic lesion on your pancreas that will need follow-up with your primary doctor as an outpatient. Drink plenty of fluids to clear urine UTI. Prescriptions: New cefuroxime axetil 500 mg tablet 500 mg PO BID Qty: 14 0RF No Action montelukast 10 mg tablet 10 mg PO DAILY Qty: 90 3RF omeprazole 20 mg capsule,delayed release(DR/EC) 20 mg PO DAILY Qty: 90 3RF glipizide 10 mg tablet extended release 24hr 10 mg PO BID Qty: 180 3RF (DME) blood sugar diagnostic Strip See Rx Instructions .ROUTE .MEDSUPPLY Qty: 100 3RF Rx Instructions: One touch test strips use 1 strip to test blood sugar once daily diltiazem HCl 240 mg capsule,extended release 24hr 240 mg PO DAILY Qty: 90 3RF Januvia 100 mg tablet 100 mg PO DAILY Qty: 90 3RF losartan 100 mg tablet 100 mg PO DAILY Qty: 90 3RF (DME) OneTouch Ultra Blue Test Strip Strip See Rx Instructions Not Applicable DAILY Qty: 10 Rx Instructions: As directed polaprezinc (zinc carnosine) PO denosumab 60 mg/mL syringe 60 mg subcut [id number] Qty: 1 2RF Trulicity 3 mg/0.5 mL pen injector 3 mg subcut QWEEK Qty: 6 3RF albuterol sulfate 90 mcg/actuation HFA aerosol inhaler inhalation methenamine hippurate 1 gram tablet 1 g PO BID albuterol sulfate 0.63 mg/3 mL solution for nebulization inhalation TID Flovent HFA 220 mcg/actuation HFA aerosol inhaler 2 puff PO BID aspirin [Adult Low Dose Aspirin] 81 mg tablet,delayed release (DR/EC) 81 mg PO DAILY mecobalamin (vitamin B12) 1,000 mcg tablet,disintegrating 1,000 mcg sublingual DAILY Rx Instructions: place tablet under tongue and allow to dissolve for at least30 secs before swallowing omega-3 fatty acids-fish oil [Fish Oil] 360-1,200 mg capsule 1 cap PO DAILY ascorbic acid (vitamin C) 500 mg capsule PO Adult 50 Plus Probiotic 4 billion cell capsule 4,000 mmu cells PO DAILY Rx Instructions: administer with a meal Referrals: Corrine Spangler MD [Primary Care Provider] -
[2022-11-16 11:29] LABS: Appearance Urine Cloudy; Color Urine Yellow; Glucose Urine UA 500 mg/dL (Negative); Leukocyte Esterase Urine Moderate (2+) (Negative); Nitrite Urine Negative (Negative); UMIC TRIGGER UACC YES; Urine Blood Negative (Negative); Urine Ketones Negative (Negative); Urine Protein Negative (Neg-Trace)
[2022-11-16 11:35] LABS: Bacteria Urine 1+ (None Seen); Hyaline Casts Urine 0-2 /LPF (0-2); RBC Urine 0-2 /HPF (0-2); Squamous Epithelial Cell Urine >20 /HPF (0-2); UACC Culture Trigger YES; WBC Urine 21-50 /HPF (0-5)
== END 2022-11-16 15:29 | disposition home or self-care (01) ==
PROVIDERS: Emergency Provider Emergency Medicine; PCP Internal Medicine
DX: R10.9 Unspecified abdominal pain (principal); N39.0 Urinary tract infection, site not specified; K86.2 Cyst of pancreas; E11.9 Type 2 diabetes mellitus without complications; I10 Essential (primary) hypertension; Z79.899 Other long term (current) drug therapy
CPT/HCPCS: 36415; 74176; 80053; 81001; 85025; 87086; 99284

== ENCOUNTER 2022-12-12 20:54 | Emergency (ER) | payer MEDICARE, OTHER, SELFPAY ==
[2022-12-12 20:56] VITALS: BP 103/78; PULSE 82; RESP 18; TEMP 36.8; O2SAT 98; BMI 26.4
[2022-12-12 21:36] LABS: MANUAL DIFF FLAG NO
[2022-12-12 21:39] LABS: Basophils Absolute Auto 0.1 X10*3/uL (0.0-0.2); Basophils Percent Auto 0.7 % (0-2); Eosinophils Absolute Auto 0.2 X10*3/uL (0.0-0.4); Eosinophils Percent Auto 2.3 % (0-4); Hematocrit 36.4 % (37.0-47.0); Imm Gran Abs Auto 0.04 X10*3/uL (0.00-0.03); Imm Gran Pct Auto 0.4 % (0.0-0.4); Lymphocytes Absolute Auto 2.7 X10*3/uL (1.2-4.9); Lymphocytes Percent Auto 26.6 % (20-40); Mean Corpuscular Hemoglobin 29.3 pg (27.0-33.0); Mean Platelet Volume 10.4 fL (9.4-12.3); Monocytes Absolute Auto 0.9 X10*3/uL (0.1-1.2); Monocytes Percent Auto 9.1 % (2-11); Neutrophils Absolute Auto 6.1 x10*3/uL (2.0-8.3); Neutrophils Percent Auto 60.9 % (45-73); Platelet Count 187 X10*3/uL (160-400); Red Blood Count 4.09 X10*6/uL (4.20-5.50); Red Cell Distribution Width 14.1 % (11.0-16.0)
[2022-12-12 21:40] LABS: Appearance Urine Cloudy; Color Urine Yellow; Glucose Urine UA Negative (Negative); Leukocyte Esterase Urine Moderate (2+) (Negative); Nitrite Urine Positive (Negative); PH 5.5 (5.0-9.0); UMIC TRIGGER UACC YES; Urine Blood Negative (Negative); Urine Ketones Negative (Negative); Urine Protein Trace mg/dL (Neg-Trace)
[2022-12-12 21:45] LABS: Bacteria Urine 4+ (None Seen); Hyaline Casts Urine 0-2 /LPF (0-2); RBC Urine 0-2 /HPF (0-2); UACC Culture Trigger YES; WBC Urine >50 /HPF (0-5)
[2022-12-12 21:53] LABS: Alanine Aminotransferase 17 U/L (0-31); Alkaline Phosphatase 86 U/L (39-117); Anion Gap 11 (12-20); Aspartate Amino Transferase 14 U/L (5-31); Bilirubin Total 0.4 mg/dL (0.0-1.0); Blood Urea Nitrogen 17 mg/dL (9-16); Calcium 9.5 mg/dL (8.4-10.2); Carbon Dioxide 25 mmol/L (22-29); Chloride 107 mmol/L (96-108); Creatinine Clr Calc Pharmacy 41.6; Estimated Glomerular Filt Rate > 60; Glucose Random 207 mg/dL (60-115); Potassium 3.8 mmol/L (3.3-5.1); Sodium 139 mmol/L (135-145); Total Protein 6.5 g/dL (6.5-8.0)
--- NOTE | 2022-12-12 22:11 | ED_ITS ---
HPI - General Adult General Chief complaint: General Medical Stated complaint: Blood sugar 254 Time Seen by Provider: 12/12/22 21:53 History of Present Illness HPI narrative: Patient is an 82-year-old female with a history of diabetes. History of urinary tract infections in the past. Presented today with having sugar in the 200 range. Feels somewhat lightheaded. There is no focal weakness. No chest pain. Patient had some nonspecific abdominal pain which is similar to previous. Has been seen approximately a month ago had a CT scan at that time. Had a question UTI at that time. Was on cefuroxime. Patient denies any fever or chills. Denies any diaphoresis. Denies any focal weakness. Denies any nausea vomiting. Denies any flank pain. Came to the ED because she was worried about her sugar P Related Data Home Medications Medication Instructions Recorded Confirmed albuterol sulfate 0.63 mg/3 mL mg inhalation TID 05/28/20 09/08/22 solution for nebulization ascorbic acid (vitamin C) 500 mg mg PO 05/28/20 09/08/22 capsule aspirin 81 mg tablet,delayed 81 mg PO DAILY 05/28/20 09/08/22 release (Adult Low Dose Aspirin) fluticasone propionate 220 2 puff PO BID 05/28/20 09/08/22 mcg/actuation HFA aerosol inhaler lactobacillus combination no.9 4 4,000 mmu cells PO DAILY 05/28/20 09/08/22 billion cell capsule (Adult 50 Plus Probiotic) mecobalamin (vitamin B12) 1,000 1,000 mcg sublingual DAILY 05/28/20 09/08/22 mcg disintegrating tablet,sublingual methenamine hippurate 1 gram tablet 1 g PO BID 05/28/20 09/08/22 omega-3 fatty acids-fish oil 360 1 cap PO DAILY 05/28/20 09/08/22 mg-1,200 mg capsule (Fish Oil) blood sugar diagnostic #10 ea 07/15/20 09/08/22 albuterol sulfate 90 mcg/actuation inhalation 01/08/21 09/08/22 aerosol inhaler polaprezinc (zinc carnosine) PO 08/28/21 09/08/22 Previous Rx's Medication Instructions Recorded montelukast 10 mg tablet 10 mg PO DAILY #90 tabs 08/07/21 denosumab 60 mg/mL subcutaneous 60 mg subcut [id number] #1 mL 11/11/21 syringe glipizide 10 mg tablet, extended 10 mg PO BID #180 tabs 03/10/22 release 24 hr blood sugar diagnostic #100 ea 08/10/22 diltiazem HCl 240 mg 240 mg PO DAILY #90 caps 08/26/22 capsule,extended release 24 hr dulaglutide 3 mg/0.5 mL 3 mg (0.5 mL) subcut QWEEK #6 mL 09/08/22 subcutaneous pen injector (Trulicity) sitagliptin phosphate 100 mg 100 mg PO DAILY #90 tabs 09/18/22 tablet (Januvia) losartan 100 mg tablet 100 mg PO DAILY #90 tabs 10/26/22 cefuroxime axetil 500 mg tablet 500 mg PO BID #14 tabs 11/16/22 omeprazole 20 mg capsule,delayed 20 mg PO DAILY #90 caps 11/17/22 release nitrofurantoin 100 mg PO Q12H 7 days #14 caps 12/12/22 monohydrate/macrocrystals 100 mg capsule (Macrobid) Allergies Allergy/AdvReac Type Severity Reaction Status Date / Time alendronate sodium Allergy Intermediate DIARRHEA Verified 12/12/22 20:59 [From FOSAMAX] ciprofloxacin [CIPROFLOXACIN] Allergy Intermediate HEADACHE,SO Verified 12/12/22 20:59 B hydrochlorothiazide Allergy Intermediate HEADACHE,DIZZINESS, Verified 12/12/22 20:59 [HYDROCHLOROTHIAZIDE] Gi upset levofloxacin [From LEVAQUIN] Allergy Intermediate HEADACHE,SO Verified 12/12/22 20:59 B metformin [METFORMIN] Allergy Intermediate DIARRHEA, Verified 12/12/22 20:59 Gi upset pravastatin [PRAVASTATIN] Allergy Intermediate HEADACHE,SOB, Verified 12/12/22 20:59 Gi upset simvastatin [SIMVASTATIN] Allergy Intermediate HEADACHE,SOB, Verified 12/12/22 20:59 Gi upset canagliflozin [From INVOKANA] AdvReac Intermediate DIARRHEA Verified 12/12/22 20 :59 dapagliflozin [From FARXIGA] AdvReac Intermediate DIARRHEA Verified 12/12/22 20:59 From PERCOCET AdvReac Mild NAUSEA Uncoded 09/08/22 10:38 Review of Systems Review of Systems: No fever no chills no coughing Yes all other systems are reviewed and are negative PMFSH Past Medical History Attestation statement: The following information was validated with the patient. Medical History Annual physical exam Asthma Diabetes mellitus Diastolic dysfunction Family history of total abdominal hysterectomy and bilateral salpingo-oophorecto my (JOANA-BSO) HTN (hypertension) Surgical History History of bladder suspension procedure History of lumpectomy of right breast History of trigger finger History of urethrocutaneous fistula Hx of appendectomy Hx of bilateral cataract extraction Hx of section Hx of hysterectomy Family History Family History Father CAD (coronary artery disease) Mother Parkinson disease Mental health disorder Brother Diabetes Melanoma Social History Social History Housing: House Alcohol intake: never Patient Tobacco Use Status: Never used Tobacco Smoked in Last 30 Days: No e-Cigarette/Vaping Use: Never Used Second Hand Smoke Exposure: No Use of substances other than those prescribed or required for medical reasons: No Advance Directives: Yes Advance Directives Information Provided: No Advance Directives on File: No service: No Current occupational status: retired 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 Oriented X3. No acute distress. Eyes: Pupils equal, round and reactive to light. ENT: Pharynx normal. Neck: Normal inspection. Neck supple. No lymph nodes noted. No crepitus CVS: Normal heart rate and rhythm. Pulses normal. Normal S1 and S2 Respiratory: No respiratory distress. Breath sounds normal. No Wheezing. No rales Abdomen: Soft and nontender. No rigidity. No distention. good BS x4 Skin: Skin warm and dry. Normal skin color. Normal skin turgor. Extremities: No lower extremity edema. Neurovascular intact to all extremities. No Lacerations. No Rash Neuro: Oriented X 3. No motor deficit. No sensory deficit. Moving all extermities. No slurred speech Medications Administered Discontinued Medications Generic Name Dose Route Start Last Admin Trade Name Dominick PRN Reason Stop Dose Admin Sodium Chloride 1,000 mls @ 999 mls/hr 12/12/22 22:15 12/12/22 22:29 Ns IV 12/12/22 23:15 999 mls/hr .Q1H1M CLARISSA Administration Medical Decision Making Medical Decision Making [facility] Narrative: Patient's urine grossly infected. History of allergies to Levaquin and to Bactrim in the past. Patient will be started on Macrobid. Follow-up on an outpatient basis. Patient's sugar was in the 200 range. Given a L of fluid monitored sugars sound 150. There is no evidence of DKA patient's symptomatic Mary Grace feels improved. Will discharge patient home. Close follow-up on an outpatient basis. Patient old records reviewed. Culture results did not have any specific sensitivity. Given patient is allergic to Cipro and to Bactrim. Already had cephalosporins. We will go ahead and give Macrobid. Follow-up on an outpatient basis. Differential Diagnosis Differential Diagnoses: The differential diagnosis associated with the presentation includes Urinary tract infection, hyperglycemia Lab Data [facility] Lab Attestation statement: I reviewed the patient's lab results. 12/12/22 21:30 12/12/22 21:30 Labs: Lab Results 12/12/22 12/12/22 12/12/22 Range/Units 21:30 21:30 21:30 WBC 10.0 (4.8-10.8) X10*3/uL RBC 4.09 L (4.20-5.50) X10*6/uL Hgb 12.0 (12.0-16.0) g/dl Hct 36.4 L (37.0-47.0) % MCV 89.0 (80.0-98.0) fL MCH 29.3 (27.0-33.0) pg MCHC 33.0 (31.0-35.0) g/dl RDW 14.1 (11.0-16.0) % Plt Count 187 (160-400) X10*3/uL MPV 10.4 (9.4-12.3) fL Immature Gran % (Auto) 0.4 (0.0-0.4) % Neut % (Auto) 60.9 (45-73) % Lymph % (Auto) 26.6 (20-40) % Sharp % (Auto) 9.1 (2-11) % Eos % (Auto) 2.3 (0-4) % Baso % (Auto) 0.7 (0-2) % Lymph # (Auto) 2.7 (1.2-4.9) X10*3/uL Sharp # (Auto) 0.9 (0.1-1.2) X10*3/uL Eos # (Auto) 0.2 (0.0-0.4) X10*3/uL Baso # (Auto) 0.1 (0.0-0.2) X10*3/uL Abs Immat Gran (auto) 0.04 H (0.00-0.03) X10*3/uL Absolute Neuts (auto) 6.1 (2.0-8.3) x10*3/uL Absolute Nucleated RBC 0.000 (0.0-0.012) X10*3/uL Nucleated RBC % (auto) 0.0 (0.0-0.2) /100WBC Sodium 139 (135-145) mmol/L Potassium 3.8 (3.3-5.1) mmol/L Chloride 107 (96-108) mmol/L Carbon Dioxide 25 (22-29) mmol/L Anion Gap 11 L (12-20) BUN 17 H (9-16) mg/dL Creatinine 0.86 (0.5-1.4) mg/dL Estim Creat Clear Calc 41.6 Estimated GFR > 60 POC Glucose (60-115) mg/dL Random Glucose 207 H (60-115) mg/dL Calcium 9.5 (8.4-10.2) mg/dL Total Bilirubin 0.4 (0.0-1.0) mg/dL AST 14 (5-31) U/L ALT 17 (0-31) U/L Alkaline Phosphatase 86 (39-117) U/L Total Protein 6.5 (6.5-8.0) g/dL Albumin 4.0 (3.5-5.0) g/dL Urine Color Yellow Urine Appearance Cloudy Urine pH 5.5 (5.0-9.0) Ur Specific [place] 1.020 (1.005-1.025) Urine Protein Trace (Neg-Trace) mg/dL Urine Glucose (UA) Negative (Negative) mg/dL Urine Ketones Negative (Negative) mg/dL Urine Blood Negative (Negative) Urine Nitrite Positive H (Negative) Ur Leukocyte Esterase Moderate (2+) H (Negative) Urine RBC 0-2 (0-2) /HPF Urine WBC >50 H (0-5) /HPF Ur Squamous Epith Cells 11-20 (0-2) /HPF Urine Bacteria 4+ (None Seen) Hyaline Casts 0-2 (0-2) /LPF 12/12/22 Range/Units 23:37 WBC (4.8-10.8) X10*3/uL RBC (4.20-5.50) X10*6/uL Hgb (12.0-16.0) g/dl Hct (37.0-47.0) % MCV (80.0-98.0) fL MCH (27.0-33.0) pg MCHC (31.0-35.0) g/dl RDW (11.0-16.0) % Plt Count (160-400) X10*3/uL MPV (9.4-12.3) fL Immature Gran % (Auto) (0.0-0.4) % Neut % (Auto) (45-73) % Lymph % (Auto) (20-40) % Sharp % (Auto) (2-11) % Eos % (Auto) (0-4) % Baso % (Auto) (0-2) % Lymph # (Auto) (1.2-4.9) X10*3/uL Sharp # (Auto) (0.1-1.2) X10*3/uL Eos # (Auto) (0.0-0.4) X10*3/uL Baso # (Auto) (0.0-0.2) X10*3/uL Abs Immat Gran (auto) (0.00-0.03) X10*3/uL Absolute Neuts (auto) (2.0-8.3) x10*3/uL Absolute Nucleated RBC (0.0-0.012) X10*3/uL Nucleated RBC % (auto) (0.0-0.2) /100WBC Sodium (135-145) mmol/L Potassium (3.3-5.1) mmol/L Chloride (96-108) mmol/L Carbon Dioxide (22-29) mmol/L Anion Gap (12-20) BUN (9-16) mg/dL Creatinine (0.5-1.4) mg/dL Estim Creat Clear Calc Estimated GFR POC Glucose 157 H (60-115) mg/dL Random Glucose (60-115) mg/dL Calcium (8.4-10.2) mg/dL Total Bilirubin (0.0-1.0) mg/dL AST (5-31) U/L ALT (0-31) U/L Alkaline Phosphatase (39-117) U/L Total Protein (6.5-8.0) g/dL Albumin (3.5-5.0) g/dL Urine Color Urine Appearance Urine pH (5.0-9.0) Ur Specific [place] (1.005-1.025) Urine Protein (Neg-Trace) mg/dL Urine Glucose (UA) (Negative) mg/dL Urine Ketones (Negative) mg/dL Urine Blood (Negative) Urine Nitrite (Negative) Ur Leukocyte Esterase (Negative) Urine RBC (0-2) /HPF Urine WBC (0-5) /HPF Ur Squamous Epith Cells (0-2) /HPF Urine Bacteria (None Seen) Hyaline Casts (0-2) /LPF External Record Review External record reviewed: Inpatient record Chronic Conditions Patient?s care impacted by: Diabetes Discharge Plan Discharge Clinical Impression: Urinary tract infection Patient Disposition: Home, Self-Care Instructions: Urinary Tract Infection in Older Adults (ED) Prescriptions: New nitrofurantoin monohyd/m-cryst [Macrobid] 100 mg capsule 100 mg PO Q12H 7 Days Qty: 14 0RF Rx Instructions: must administer with a meal/food No Action montelukast 10 mg tablet 10 mg PO DAILY Qty: 90 3RF glipizide 10 mg tablet extended release 24hr 10 mg PO BID Qty: 180 3RF (DME) blood sugar diagnostic Strip See Rx Instructions .ROUTE .MEDSUPPLY Qty: 100 3RF Rx Instructions: One touch test strips use 1 strip to test blood sugar once daily diltiazem HCl 240 mg capsule,extended release 24hr 240 mg PO DAILY Qty: 90 3RF Januvia 100 mg tablet 100 mg PO DAILY Qty: 90 3RF losartan 100 mg tablet 100 mg PO DAILY Qty: 90 3RF omeprazole 20 mg capsule,delayed release(DR/EC) 20 mg PO DAILY Qty: 90 3RF cefuroxime axetil 500 mg tablet 500 mg PO BID Qty: 14 0RF (DME) OneTouch Ultra Blue Test Strip Strip See Rx Instructions Not Applicable DAILY Qty: 10 Rx Instructions: As directed polaprezinc (zinc carnosine) PO denosumab 60 mg/mL syringe 60 mg subcut [id number] Qty: 1 2RF Trulicity 3 mg/0.5 mL pen injector 3 mg subcut QWEEK Qty: 6 3RF albuterol sulfate 90 mcg/actuation HFA aerosol inhaler inhalation methenamine hippurate 1 gram tablet 1 g PO BID albuterol sulfate 0.63 mg/3 mL solution for nebulization inhalation TID Flovent HFA 220 mcg/actuation HFA aerosol inhaler 2 puff PO BID aspirin [Adult Low Dose Aspirin] 81 mg tablet,delayed release (DR/EC) 81 mg PO DAILY mecobalamin (vitamin B12) 1,000 mcg tablet,disintegrating 1,000 mcg sublingual DAILY Rx Instructions: place tablet under tongue and allow to dissolve for at least30 secs before swallowing omega-3 fatty acids-fish oil [Fish Oil] 360-1,200 mg capsule 1 cap PO DAILY ascorbic acid (vitamin C) 500 mg capsule PO Adult 50 Plus Probiotic 4 billion cell capsule 4,000 mmu cells PO DAILY Rx Instructions: administer with a meal Referrals: Corrine Spangler MD [Primary Care Provider] - 12/15/22
[2022-12-12] MEDS: 0.9 % Sodium Chloride 1,000 ML 999 ML IV (22:29)
--- NOTE | 2022-12-12 22:36 | PC.NURSE ---
pt reported no pain, iv established, NS infusing, HOB elevated
[2022-12-12 23:10] VITALS: BP 179/73; PULSE 73; RESP 15; O2SAT 98
[2022-12-12 23:41] LABS: Glucose, Whole Blood 157 mg/dL (60-115)
--- NOTE | 2022-12-12 23:47 | PC.NURSE ---
pt blood glucose 157. Dr. gallo
[2022-12-13] MEDS: Nitrofurantoin Monohyd/M-Cryst 100 MG CAPSULE PO (00:02)
== END 2022-12-13 00:05 | disposition home or self-care (01) ==
PROVIDERS: Emergency Provider Emergency Medicine Emergency Medical Services; PCP Internal Medicine
DX: N39.0 Urinary tract infection, site not specified (principal); E11.65 Type 2 diabetes mellitus with hyperglycemia; I10 Essential (primary) hypertension; Z79.82 Long term (current) use of aspirin; Z79.899 Other long term (current) drug therapy
CPT/HCPCS: 36415; 80053; 81001; 82947; 85025; 87086; 96360; 99284

== ENCOUNTER 2023-02-09 12:49 | Outpatient (AMB) | payer MEDICARE, OTHER, SELFPAY ==
--- NOTE | 2023-02-09 12:56 | MHC.OFFVIS ---
Intake Vital Signs 02/09/23 13:04 Height 5 ft 1 in Weight 146 lb BMI 27.6 Intake Visit Reasons: New Prob - Right Elbow pain Intake Note: Genie is a 82 years old right hand dominant female who presents today for a evaluation for her right elbow pain. Patient reports she's been sowing all week and about 5 days ago she started to get ongoing pain. She tried lidocaine patches and they give her mild relief. She states that her pain is on the zeina part of the elbow. ROM is limited per patient. Allergies alendronate sodium [From FOSAMAX] Allergy (Intermediate, Verified 02/09/23 13:03) DIARRHEA ciprofloxacin [CIPROFLOXACIN] Allergy (Intermediate, Verified 02/09/23 13:03) HEADACHE,SOB hydrochlorothiazide [HYDROCHLOROTHIAZIDE] Allergy (Intermediate, Verified 02/09/23 13:03) HEADACHE,DIZZINESS, Gi upset levofloxacin [From LEVAQUIN] Allergy (Intermediate, Verified 02/09/23 13:03) HEADACHE,SOB metformin [METFORMIN] Allergy (Intermediate, Verified 02/09/23 13:03) DIARRHEA, Gi upset pravastatin [PRAVASTATIN] Allergy (Intermediate, Verified 02/09/23 13:03) HEADACHE,SOB, Gi upset simvastatin [SIMVASTATIN] Allergy (Intermediate, Verified 02/09/23 13:03) HEADACHE,SOB, Gi upset canagliflozin [From INVOKANA] Adverse Reaction (Intermediate, Verified 02/09/23 13:03) DIARRHEA dapagliflozin [From FARXIGA] Adverse Reaction (Intermediate, Verified 02/09/23 13:03) DIARRHEA From PERCOCET Adverse Reaction (Mild, Uncoded 12/22/22 13:39) NAUSEA HPI New Prob - Right Elbow pain HPI Details 82-year-old right hand dominant female who presents in the office today for an evaluation of right elbow pain. She reports she was sowing all week with pain presenting 5 days ago. She claims she has tried lidocaine patches with mild relief. She reports her pain is on the bony aspect of the right elbow. She states her ROM is limited. She states her symptoms have slight improved. Patient reports tenderness at the right bicep tendon insertion. [facility] Medical History Annual physical exam Asthma Diabetes mellitus Diastolic dysfunction Family history of total abdominal hysterectomy and bilateral salpingo-oophorectomy (JOANA-BSO) HTN (hypertension) Surgical History History of bladder suspension procedure History of lumpectomy of right breast History of trigger finger History of urethrocutaneous fistula Hx of appendectomy Hx of bilateral cataract extraction Hx of section Hx of hysterectomy Family History Father CAD (coronary artery disease) Mother Parkinson disease Mental health disorder Brother Diabetes Melanoma Social History Housing: House Alcohol intake: never Patient Tobacco Use Status: Never used Tobacco e-Cigarette/Vaping Use: Never Used Second Hand Smoke Exposure: No service: No Current occupational status: retired 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 Cognitive needs: No Hearing needs: No Vision needs: Yes Review of Systems Const All systems reviewed & are unremarkable except as noted in HPI and below Physical Exam Vital Signs: BMI result Body Mass Index 27.6 Const General: cooperative, healthy appearing, comfortable, no acute distress, well developed and alert Orientation/consciousness: patient oriented x3 HEENT Head: Yes normal to inspection, Yes normocephalic and Yes atraumatic Eyes General: appearance normal, both eyes and all related structures Resp Effort & Inspection: normal respiratory effort and able to speak in complete sentences Cardio Rate: regular rate Peripheral pulses: Peripheral pulses 2+ throughout GI Palpation (GI): Soft to palpation Skin Lesions: no lesions Rashes: no rashes Neuro General: patient oriented x3 Extrem Other: Right elbow: Normal to inspection. No ecchymosis, erythema, or edema. No tenderness to palpation over the olecranon. No tenderness to the medial epicondyle. Tenderness to palpation at the lateral epicondyle. NVI. Assessment & Plan Assessment & Plan (1) Lateral epicondylitis of right elbow: Code(s): M77.11 - Lateral epicondylitis, right elbow Plan Ms. Cornelio Harrington is a 82-year-old right hand dominant female who presents in the office today for an evaluation of right elbow pain. She reports she was sowing all week with pain presenting 5 days ago. She claims she has tried lidocaine patches with mild relief. She reports her pain is on the bony aspect of the right elbow. She states her ROM is limited. She states her symptoms have slight improved. Patient reports tenderness at the right bicep tendon insertion. I discussed the role of a counter force brace and anti-inflammatories. I discussed the role of cortisone injections, if she is still having pain in 3 months she will call the office to move forward with the injection at that time. Follow up will be PRN, or sooner if needed. Patient Instructions: Scribed for Clementina Solomon PA-C by Opal Ramsey medical registrar, on 02/09/2023 at 12:51 pm, EST. Your attestation Coding Level of Care Code New Pt Level 3 (29470) Diagnoses Lateral epicondylitis of right elbow M77.11
[2023-02-09 13:04] VITALS: BMI 27.6
== END 2023-02-09 13:22 | disposition home or self-care (01) ==
PROVIDERS: PCP Internal Medicine; Visit Provider Physician Assistant
DX: M77.11 Lateral epicondylitis, right elbow (principal)
CPT/HCPCS: 99203

== ENCOUNTER → 2023-02-09 12:49 | Outpatient (BNVA) | payer MEDICARE, OTHER, SELFPAY | PROVIDERS: PCP Internal Medicine; Visit Provider Physician Assistant | DX: M77.11 Lateral epicondylitis, right elbow (principal) | CPT/HCPCS: 99202 ==

== ENCOUNTER 2023-02-17 09:59 | Outpatient (REF) | payer MEDICARE, OTHER, SELFPAY ==
--- NOTE | ~2023-02-17 | MM_ITS ---
EXAMINATION: MM SCREENING DIGITAL BREAST TOMOSYNTHESIS, BILATERAL CLINICAL INFORMATION: Screening. Asymptomatic. COMPARISON: Mammography: 02/17/2023, 02/05/2022, 02/20/2021, 11/13/2020, and dating back to 2018. TECHNIQUE: Digital breast tomosynthesis is performed in both the craniocaudal and mediolateral oblique views along with computer-aided detection (CAD). Synthesized 2D images are generated from the tomosynthesis. FINDINGS: There are scattered areas of fibroglandular density (ACR BI-RADS breast composition Category b). There are no significant masses, suspicious grouped calcifications, or other abnormalities. There are benign vascular calcifications right greater than left. The overall parenchymal pattern is unchanged. MM/MM tomosynthesis screening BI IMPRESSION: No mammographic evidence of malignancy. ASSESSMENT: BI-RADS BI-RADS 2 - Benign Findings RECOMMENDATION: Routine annual mammography screening. 1 year F/U This examination should not preclude the clinical evaluation of a suspicious palpable abnormality. This patient's information was entered into a reminder system with a target due date for their next mammogram.
== END 2023-02-17 10:00 | disposition home or self-care (01) ==
LOC: HO.MAMMO 09:59
PROVIDERS: Visit Provider Internal Medicine
DX: Z12.31 Encounter for screening mammogram for malignant neoplasm of breast (principal)
CPT/HCPCS: 77063; 77067

== ENCOUNTER → 2023-02-17 10:15 | Outpatient (BNV) | payer MEDICARE, OTHER, SELFPAY | PROVIDERS: Visit Provider Radiology Diagnostic Radiology | DX: Z12.31 Encounter for screening mammogram for malignant neoplasm of breast (principal) | CPT/HCPCS: 77063; 77067 ==

== ENCOUNTER 2023-03-05 06:12 | Outpatient (REF) | payer MEDICARE, OTHER, SELFPAY ==
[2023-03-05 13:39] LABS: Estimated Average Glucose 163 mg/dL; Hemoglobin A1c % 7.3 %
[2023-03-05 15:28] LABS: Alanine Aminotransferase 16 U/L (0-31); Albumin Level 3.7 g/dL (3.5-5.0); Alkaline Phosphatase 76 U/L (39-117); Anion Gap 14 (12-20); Aspartate Amino Transferase 14 U/L (5-31); Bilirubin Total 0.4 mg/dL (0.0-1.0); Blood Urea Nitrogen 13 mg/dL (9-16); Calcium 9.4 mg/dL (8.4-10.2); Carbon Dioxide 23 mmol/L (22-29); Chloride 110 mmol/L (96-108); Estimated Glomerular Filt Rate > 60; Glucose Fasting 145 mg/dL (60-99); Sodium 143 mmol/L (135-145); TSH reflex Free T4 1.22 uIU/mL (0.32-4.0); Total Protein 6.7 g/dL (6.5-8.0)
== END 2023-03-05 06:13 | disposition home or self-care (01) ==
LOC: HO.HMGCLDS 06:12
PROVIDERS: PCP Internal Medicine; Visit Provider Internal Medicine
DX: E11.9 Type 2 diabetes mellitus without complications (principal); E53.8 Deficiency of other specified B group vitamins; E55.9 Vitamin D deficiency, unspecified; J45.909 Unspecified asthma, uncomplicated
CPT/HCPCS: 36415; 80053; 83036; 84443

== ENCOUNTER 2023-03-10 11:48 | Outpatient (AMB) | payer MEDICARE, OTHER, SELFPAY ==
--- NOTE | 2023-03-10 12:04 | A.OFFPC_ITS ---
Intake Visit Reasons: AWV [id number] Allergies alendronate sodium [From FOSAMAX] Allergy (Intermediate, Verified 02/09/23 13:03) DIARRHEA ciprofloxacin [CIPROFLOXACIN] Allergy (Intermediate, Verified 02/09/23 13:03) HEADACHE,SOB hydrochlorothiazide [HYDROCHLOROTHIAZIDE] Allergy (Intermediate, Verified 02/09/23 13:03) HEADACHE,DIZZINESS, Gi upset levofloxacin [From LEVAQUIN] Allergy (Intermediate, Verified 02/09/23 13:03) HEADACHE,SOB metformin [METFORMIN] Allergy (Intermediate, Verified 02/09/23 13:03) DIARRHEA, Gi upset pravastatin [PRAVASTATIN] Allergy (Intermediate, Verified 02/09/23 13:03) HEADACHE,SOB, Gi upset simvastatin [SIMVASTATIN] Allergy (Intermediate, Verified 02/09/23 13:03) HEADACHE,SOB, Gi upset canagliflozin [From INVOKANA] Adverse Reaction (Intermediate, Verified 02/09/23 13:03) DIARRHEA dapagliflozin [From FARXIGA] Adverse Reaction (Intermediate, Verified 02/09/23 13:03) DIARRHEA From PERCOCET Adverse Reaction (Mild, Uncoded 12/22/22 13:39) NAUSEA Tobacco use date assessed: 09/08/22 [facility] Medical History Annual physical exam Asthma Diabetes mellitus Diastolic dysfunction Family history of total abdominal hysterectomy and bilateral salpingo-o ophorectomy (JOANA-BSO) HTN (hypertension) Surgical History History of bladder suspension procedure History of lumpectomy of right breast History of trigger finger History of urethrocutaneous fistula Hx of appendectomy Hx of bilateral cataract extraction Hx of section Hx of hysterectomy Family History Father CAD (coronary artery disease) Mother Parkinson disease Mental health disorder Brother Diabetes Melanoma Social History Housing: House Alcohol intake: never Patient Tobacco Use Status: Never used Tobacco e-Cigarette/Vaping Use: Never Used Second Hand Smoke Exposure: No service: No Current occupational status: retired 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 Nishant Reyes, Bhavani Lee, Samy Voss and colleagues, with an educational kai from [employer]. Physical exam (Primary Care) Tobacco/Smoking Status: Tobacco use Status Tobacco use date assessed 09/08/22 02/08/23 11:22 Patient Tobacco Use Status Never used Tobacco 02/08/23 11:22 e-Cigarette/Vaping Use Never Used 02/08/23 11:22 Thrive Assessment: Date of Thrive Assessment Date Thrive assessed 09/08/22 02/08/23 11:22 Coding Diagnoses
[2023-03-10 12:05] VITALS: BP 122/60; PULSE 74; O2SAT 97; BMI 27.6
--- NOTE | 2023-03-10 12:05 | AM.OFFVISMDC ---
Intake Vital Signs 03/10/23 12:05 Height 5 ft 1 in Weight 146 lb BMI 27.6 BP 122/60 Blood Pressure Location Lt brachial Position Sitting Pulse 74 Pulse Source Pulse Oximeter Pulse Oximetry (%) 97 Oxygen Delivery Method Room Air Intake Visit Reasons: AWV G0439 Intake Note: Pt is here today for AWV. Allergies alendronate sodium [From FOSAMAX] Allergy (Intermediate, Verified 03/10/23 12:11) DIARRHEA ciprofloxacin [CIPROFLOXACIN] Allergy (Intermediate, Verified 03/10/23 12:11) HEADACHE,SOB hydrochlorothiazide [HYDROCHLOROTHIAZIDE] Allergy (Intermediate, Verified 03/10/23 12:11) HEADACHE,DIZZINESS, Gi upset levofloxacin [From LEVAQUIN] Allergy (Intermediate, Verified 03/10/23 12:11) HEADACHE,SOB metformin [METFORMIN] Allergy (Intermediate, Verified 03/10/23 12:11) DIARRHEA, Gi upset pravastatin [PRAVASTATIN] Allergy (Intermediate, Verified 03/10/23 12:11) HEADACHE,SOB, Gi upset simvastatin [SIMVASTATIN] Allergy (Intermediate, Verified 03/10/23 12:11) HEADACHE,SOB, Gi upset canagliflozin [From INVOKANA] Adverse Reaction (Intermediate, Verified 03/10/23 12:11) DIARRHEA dapagliflozin [From FARXIGA] Adverse Reaction (Intermediate, Verified 03/10/23 12:11) DIARRHEA From PERCOCET Adverse Reaction (Mild, Uncoded 03/10/23 12:11) NAUSEA Medication List - Last Reconciled 03/10/23 by Corrine Spangler MD albuterol sulfate mg inhalation TID albuterol sulfate 90 mcg/actuation inhalation ascorbic acid (vitamin C) mg PO aspirin (Adult Low Dose Aspirin) 81 mg PO DAILY blood sugar diagnostic As directed blood sugar diagnostic One touch test strips use 1 strip to test blood sugar once daily denosumab 60 mg subcut [id number] diltiazem HCl 240 mg PO DAILY dulaglutide (Trulicity) 3 mg (0.5 mL) subcut QWEEK fluticasone propionate 220 mcg/actuation 2 puffs PO BID glipizide ER 10 mg PO BID lactobacillus combination no.9 (Adult 50 Plus Probiotic) 4,000 mmu cells PO DAILY losartan 100 mg PO DAILY mecobalamin (vitamin B12) 1,000 mcg sublingual DAILY methenamine hippurate 1 g PO BID metronidazole 0.75% 1 appl topical BID montelukast 10 mg PO DAILY omega-3 fatty acids-fish oil 360-1,200 mg (Fish Oil) 1 cap PO DAILY omeprazole 20 mg PO DAILY polaprezinc (zinc carnosine) PO sitagliptin phosphate (Januvia) 100 mg PO DAILY HPI AWV G0439 HPI Details Patient presents for annualInitiated the conversation about Advanced Directives. Advanced Directives help? patients prepare for current and future decisions about their medical treatment? and place of care. Discussed with patient that it is a process where a patients? current condition and prognosis are reviewed, their wishes for information? regarding their illness are elicited, and likely medical dilemmas are presented? and options discussed. The form can be amended as needed, reviewed yearly and? make changes as needed IPPE/AWV ? year old presents? for her ? Annual? Wellness Visit, initial visit.? Medical / Social History Reviewed? Past Medical History ?Yes? . ? [place]? of Care / Care Team list updated ?Yes . ? Surgical/Hospitalization? History ?Yes . ? Current Medications? (including OTC and supplements) ?Yes . ? Family History ?Yes? . ? Tobacco? Control form ?Yes . ? AUDIT-C (Alcohol use) form? ?Yes . ? Illicit drug use in Social? History ?Yes . ? Current diagnosis of? depression? ?No ? Appropriate PHQ2/PHQ9? completed ?Yes . ? Data entered by ?Medical? [employer] and reviewed by provider ? Fall Risk ? Fall? History? Have you had any falls with? injury in the past year? ?No . ? Have you had two or more? falls in the past year? ?No . ? Fall Risk Assessment: ?No? falls in the past year . ? HRA filled out by? the patient, reviewed by Provider and scanned. ? IPPE/AWV ? Balance? [place]? ?Yes . ? Tandem? walk ?Yes . ? Walk and? Turn ?Yes . ? Rise from? sit to stand ?Yes . ?Vision? Corrective? lens ?Yes ? Vision? screen ? Up-to-date, has an appointment [] for vision? screening and glaucoma screening ?Hearing? Whisper? test ?pass .? Initiated the conversation about Advanced Directives. Advanced Directives help? patients prepare for current and future decisions about their medical treatment? and place of care. Discussed with patient that it is a process where a patients? current condition and prognosis are reviewed, their wishes for information? regarding their illness are elicited, and likely medical dilemmas are presented? and options discussed. The form can be amended as needed, reviewed yearly and? make changes as needed Written? Plan?Completed. See Patient? Documents. visit [facility] Medical History Annual physical exam Asthma Diabetes mellitus Diastolic dysfunction Family history of total abdominal hysterectomy and bilateral salpingo-oophorectomy (JOANA-BSO) HTN (hypertension) Surgical History History of bladder suspension procedure History of lumpectomy of right breast History of trigger finger History of urethrocutaneous fistula Hx of appendectomy Hx of bilateral cataract extraction Hx of section Hx of hysterectomy Family History Father CAD (coronary artery disease) Mother Parkinson disease Mental health disorder Brother Diabetes Melanoma Social History Housing: House Alcohol intake: never Patient Tobacco Use Status: Never used Tobacco e-Cigarette/Vaping Use: Never Used Second Hand Smoke Exposure: No service: No Current occupational status: 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 Cognitive needs: No Hearing needs: No Vision needs: Yes Questionnaire Medicare Wellness Checkup What is your age?: 80 or older What gender do you identify with?: female During the past 4 weeks, how much have you been bothered by emotional problems such as feeling anxious, depressed, irritable, sad or downhearted, and blue?: not at all During the past 4 weeks, has your physical & emotional health limited your social activities with family, friends, neighbors, or groups?: quite a bit During the past 4 weeks, how much bodily pain have you generally had?: severe pain During the past 4 weeks, was someone available to help you if you needed & wanted help?: no, not at all During the past 4 weeks, what was the hardest physical activity you could do for at least 2 minutes?: heavy Can you get to places out of walking distance without help? (For eg., can you travel alone on buses, taxis or drive your car?): Yes Can you go shopping for groceries or clothes without someone's help?: Yes Can you prepare your own meals?: Yes Can you do your housework without help?: Yes Because of any health problems, do you need the help of another person with your personal care needs such as eating, bathing, dressing or getting around the house?: No Can you handle your own money without help?: Yes During the past 4 weeks, how would you rate your health in general?: good During the past 4 weeks how have things been going for you?: good & bad parts about equal Are you having difficulties driving your car?: no Do you always fasten your seat belt when you are in a car?: yes, usually During past 4 weeks, have you been bothered by the following: never: Falling or dizzy when standing up, Sexual problems?, Trouble eating well? and Problems using the telephone?, sometimes: Teeth or denture problems? and often: Tiredness or fatigue? Have you fallen 2 or more times in the past year?: No Are you afraid of falling?: No Are you a smoker?: no During the past 4 weeks, how many drinks of wine, beer, or other alcoholic beverages did you have?: 1 drink or less per week Do you exercise for about 20 minutes 3 or more times a week?: no, I usually do not exercise this much Have you been given information to help with the following?: no: Hazards in your house that might hurt you? and no: Keeping track of your medications? How often do you have trouble taking medicines the way you have been told to take them?: I always take medicine as prescribed How confident are you that you can control & manage most of your health problems?: very confident What is your race?: White Mini Mental State Exam (MMSE) Orientation What is the (year) (season) (date) (day) (month)?: year, season, date, day and month Where are we (state) (county) (town or city) (hospital) (floor)?: state, county, town or city and hospital/clinic Registration Name of 3 unrelated objects clearly and slowly, then ask patient to repeat all 3 of them. (1st repeat determines score. Make sure they can repeat all three): object 1, object 2 and object 3 Attention & Calculation (CHOOSE ONE) Spell WORLD backwards (DLROW): 5 letters Recall Ask patient to repeat the 3 items from question #3.: object 1, object 2 and object 3 Language Show patient a wristwatch & ask what it is. Repeat for pencil.: watch and pencil Ask the patient to repeat the phrase 'No ifs, ands, or buts' after you.: correct Ask the patient to 'take a piece of paper with their right hand' 'fold paper in half' 'place paper on floor': take paper in right hand, fold paper in half and place paper on floor Print the sentence 'CLOSE YOUR EYES' on a piece. If patient actually closes eyes then score.: followed written direction Score Score: 27 Activity of Daily Living Bathing - sponge bath, tub bath or shower: receives no assistance (gets in/out by self, if usual bathing means Dressing - getting clothes from closets & drawers, including inner/outer garments & fasteners.: gets clothes & gets completely dressed without help Toileting - going to the 'toilet room' for urine/bowel elimination & cleaning self/arranging clothes: goes to toilet room, cleans self, arranges clothes without help Transfer: moves in & out of bed and chair without help (may use support object) Continence: controls urination/bowel movements completely by self Feeding: feeds self without help Total Score: 0 Information obtained from: patient Using telephone: independent Traveling: independent Shopping: independent Preparing meals: independent Housework: independent Taking medicine: independent Managing money: independent PHQ-9 Over the last 2 weeks, how often have you been bothered by any of the following problems? 1. Little interest or pleasure in doing things: not at all 2. Feeling down, depressed, or hopeless: not at all 3. Trouble falling or staying asleep, or sleeping too much: nearly every day 4. Feeling tired or having little energy: nearly every day 5. Poor appetite or overeating: not at all 6. Feeling bad about yourself - or that you are a failure or have let yourself or your family down: not at all 7. Trouble concentrating on things, such as reading the newspaper or watching television: not at all 8. Moving or speaking so slowly that other people could have noticed. Or the opposite - being so fidgety or restless that you have been moving around a lot more than usual: not at all 9. Thoughts that you would be better off or of hurting yourself in some way: not at all Total score: 6 Depression Screening Interpretation: Negative Source: Developed by Drs. Nishant Reyes, Bhavani Lee, Samy Voss and colleagues, with an educational kai from [employer]. Review of Systems Const All systems reviewed & are unremarkable except as noted in HPI and below Reports no additional complaints Eyes Reports no additional complaints ENT Reports no additional complaints Card Reports no additional complaints Resp Reports no additional complaints GI Reports no additional complaints Reports no additional complaints Physical Exam Vital Signs: Last Vital Signs Pulse 74 03/10/23 12:05 BP 122/60 03/10/23 12:05 Pulse Ox 97 03/10/23 12:05 Oxygen Delivery Method Room Air 03/10/23 12:05 BMI result Body Mass Index 27.6 Const General: no acute distress HEENT Head: Yes normal to inspection Eyes General: appearance normal, both eyes and all related structures Neck Neck: Yes no lymphadenopathy and Yes supple Resp Effort & Inspection: normal respiratory effort Auscultation: clear to auscultation bilaterally Cardio Rhythm: regular rhythm Heart sounds: S1 normal heart sound present and S2 normal heart sound present GI Inspection: Yes normal to inspection Palpation (GI): Soft to palpation Extrem General: Yes no clubbing, cyanosis or edema Assessment & Plan Assessment & Plan (1) Annual physical exam: Code(s): Z00.00 - Encounter for general adult medical examination without abnormal findings Plan: well balanced diet and regular physical activity discussed with the patient (2) Asthma: Comment: f/u Dr. Pagan Code(s): J45.909 - Unspecified asthma, uncomplicated Plan: Continue current treatment (3) Osteoporosis: Comment: DEXA 01/2021 T score-3.0 unchanged from 11/2018 , Prolia since 2018 Code(s): M81.0 - Age-related osteoporosis without current pathological fracture Plan: DEXA is pending continue Prolia and vitamin-D 3 (4) HTN (hypertension): Code(s): I10 - Essential (primary) hypertension Plan: Continue current medications (5) Diabetes mellitus: Code(s): E11.9 - Type 2 diabetes mellitus without complications Plan: A1c is stable at 7.3. Patient will stop Januvia and continue metformin and Trulicity. Follow-up in 6 months with a fasting labs before Orders: Orders Vitamin B12 and Folate 6 Months E11.9 - Type 2 diabetes mellitus without complications, E53.8 - Deficiency of other specified B group vitamins, E55.9 - Vitamin D deficiency, unspecified, I10 - Essential (primary) hypertension, I51.89 - Other ill-defined heart diseases, M81.0 - Age-related osteoporosis without current pathological fracture, Z00.00 - Encounter for general adult medical examination without abnormal findings Comprehensive [place]. Panel Fast 6 Months E11.9 - Type 2 diabetes mellitus without complications, E53.8 - Deficiency of other specified B group vitamins, E55.9 - Vitamin D deficiency, unspecified, I10 - Essential (primary) hypertension, I51.89 - Other ill-defined heart diseases, M81.0 - Age-related osteoporosis without current pathological fracture, Z00.00 - Encounter for general adult medical examination without abnormal findings Hemoglobin A1c 6 Months E11.9 - Type 2 diabetes mellitus without complications, E53.8 - Deficiency of other specified B group vitamins, E55.9 - Vitamin D deficiency, unspecified, I10 - Essential (primary) hypertension, I51.89 - Other ill-defined heart diseases, M81.0 - Age-related osteoporosis without current pathological fracture, Z00.00 - Encounter for general adult medical examination without abnormal findings Lipid Panel 6 Months E11.9 - Type 2 diabetes mellitus without complications, E53.8 - Deficiency of other specified B group vitamins, E55.9 - Vitamin D deficiency, unspecified, I10 - Essential (primary) hypertension, I51.89 - Other ill-defined heart diseases, M81.0 - Age-related osteoporosis without current pathological fracture, Z00.00 - Encounter for general adult medical examination without abnormal findings Vitamin D 25-OH Total 6 Months E11.9 - Type 2 diabetes mellitus without complications, E53.8 - Deficiency of other specified B group vitamins, E55.9 - Vitamin D deficiency, unspecified, I10 - Essential (primary) hypertension, I51.89 - Other ill-defined heart diseases, M81.0 - Age-related osteoporosis without current pathological fracture, Z00.00 - Encounter for general adult medical examination without abnormal findings Microalbumin, Random (w Creat) 6 Months E11.9 - Type 2 diabetes mellitus without complications, E53.8 - Deficiency of other specified B group vitamins, E55.9 - Vitamin D deficiency, unspecified, I10 - Essential (primary) hypertension, I51.89 - Other ill-defined heart diseases, M81.0 - Age-related osteoporosis without current pathological fracture, Z00.00 - Encounter for general adult medical examination without abnormal findings Complete Blood Count Auto Diff 6 Months E11.9 - Type 2 diabetes mellitus without complications, E53.8 - Deficiency of other specified B group vitamins, E55.9 - Vitamin D deficiency, unspecified, I10 - Essential (primary) hypertension, I51.89 - Other ill-defined heart diseases, M81.0 - Age-related osteoporosis without current pathological fracture, Z00.00 - Encounter for general adult medical examination without abnormal findings Quality Reporting (2019) Depression/Bipolar (159/160/161/177) PHQ-9: Total score: 6 Coding Level of Care Code Medicare Subsequent (G0439) Diagnoses Annual physical exam Z00.00 Asthma J45.909 Osteoporosis M81.0 HTN (hypertension) I10 Diabetes mellitus E11.9 CPT Codes Advance Care Planning - Time spent: 1-15 minutes, not on file ([id number]) Advance Care Planning Advance Care Planning discussion: Exists, not on file Forms completed: Health Care Proxy Time spent: 1-15 minutes, not on file
== END 2023-03-10 15:03 | disposition home or self-care (01) ==
PROVIDERS: PCP Internal Medicine; Visit Provider Internal Medicine
DX: Z00.00 Encounter for general adult medical examination without abnormal findings (principal); J45.909 Unspecified asthma, uncomplicated; I10 Essential (primary) hypertension; E11.9 Type 2 diabetes mellitus without complications; M81.0 Age-related osteoporosis without current pathological fracture
CPT/HCPCS: 1124F; G0439

== ENCOUNTER 2023-03-16 10:45 | Outpatient (REF) | payer MEDICARE, OTHER, SELFPAY ==
--- NOTE | ~2023-03-16 | MM_ITS ---
EXAMINATION: BONE DENSITOMETRY CLINICAL INDICATION: Age-related osteoporosis without current pathological fracture. COMPARISON: Previous BD dated 02/20/2021 and baseline BD dated 11/02/2007. TECHNIQUE: Using a [employer] DXA System (software version: 13.1) manufactured by [employer], dual-energy x-ray absorptiometry was performed of the lumbar spine and left hip. The images are of good technical quality. Summary results are attached. FINDINGS: LEFT FEMUR, NECK: Current: BMD 0.498 g/cm2, Z-score -1.6, T-score -3.9, osteoporosis. Prior: BMD 0.616 g/cm2. Baseline: BMD 0.752 g/cm2. LEFT FEMUR, TOTAL: Current: BMD 0.545 g/cm2, Z-score -1.5, T-score -3.7, osteoporosis, 19.9% decrease from previous, 33.2% decrease from baseline (<5% change is not significant). Prior: BMD 0.680 g/cm2. Baseline: BMD 0.816 g/cm2. AP SPINE L1-L3 (excluding L4): The data of L1-L4 has been changed to exclude the L4 vertebral body, because degenerative sclerosis at this level may cause overestimation of lumbar spine density. Current: BMD 1.063 g/cm2, Z-score 1.0, T-score -0.9, normal, 3.3% decrease from previous, 5.0% increase from baseline (<5% change is not significant). Prior: BMD 1.099 g/cm2. Baseline: BMD 1.012 g/cm2. IDENTIFIED RISK FACTORS: Early menopause, secondary osteoporosis, hysterectomy, bilateral oophorectomy, height loss, osteoporosis. HISTORY OF FRACTURE: None listed. MEDICATIONS: Calcium supplements or multivitamin, vitamin D, Prolia. MM/XR DEXA axial skeleton IMPRESSION: 1. DIAGNOSIS: Osteoporosis based on the lowest T-score value of -3.9 in the femoral neck applying World Health Organization criteria. 2. 10-YEAR FRACTURE RISK PREDICTION, FRAX: According to the guidelines, FRAX calculation should only be performed on patients in the osteopenia bone density category. Therefore, FRAX was not performed on this patient. 3. Treatment Recommendations: NOF guidelines recommend consideration for treatment in postmenopausal women and men age 50 and older presenting with the following: -A hip or vertebral (clinical or morphometric) fracture. -T-score less than or equal to -2.5 at the femoral neck or spine after appropriate evaluation to exclude secondary causes. -Low bone mass at the hip or spine and a 10-year fracture probability by FRAX of greater than or equal to 3% for hip fracture or greater than or equal to 20% for major osteoporotic fracture based on the [place] adapted WHO algorithm. 4. Other Recommendations: All treatment decisions require clinical judgment and consideration of individual patient factors, including patient preferences, comorbidities, previous drug use, risk factors not captured in the FRAX model (e.g. frailty, falls, vitamin D deficiency, increased bone turnover, interval significant decline in bone density) and possible under or overestimation of fracture risk by FRAX. Additional medical evaluation for secondary cause of low bone mineral density may be appropriate. FUTURE SCAN RECOMMENDATION: People with diagnosed cases of osteoporosis or at high risk for fracture should have regular bone mineral density tests. For patients eligible for Medicare, routine testing is allowed once every 2 years. The testing frequency can be increased to one year for patients who have rapidly progressing disease, those who are receiving or discontinuing medical therapy to restore bone mass, or have additional risk factors.
== END 2023-03-16 10:46 | disposition home or self-care (01) ==
LOC: HO.MAMMO 10:45
PROVIDERS: Visit Provider Internal Medicine
DX: Z13.820 Encounter for screening for osteoporosis (principal); Z78.0 Asymptomatic menopausal state; M81.0 Age-related osteoporosis without current pathological fracture
CPT/HCPCS: 77080

== ENCOUNTER → 2023-03-16 10:48 | Outpatient (BNV) | payer MEDICARE, OTHER, SELFPAY | PROVIDERS: Visit Provider Radiology Diagnostic Radiology | DX: M81.0 Age-related osteoporosis without current pathological fracture (principal) | CPT/HCPCS: 77080 ==

== ENCOUNTER 2023-04-08 08:10 | Outpatient (AMB) | payer MEDICARE, OTHER, SELFPAY ==
--- NOTE | 2023-04-08 08:36 | MHC.OFFWIV ---
Intake Vital Signs 04/08/23 08:37 Height 5 ft 1 in Weight 146 lb BMI 27.6 BP 150/70 H Blood Pressure Location Rt brachial Position Sitting Pulse 91 Pulse Source Pulse Oximeter Temp 97.5 F Temp Source Temporal Artery Scan Pulse Oximetry (%) 97 Oxygen Delivery Method Room Air Intake Visit Reasons: EST/head aches and back aches Intake Note: pt is here for c/o headaches, bodyaches, at home covid test neg, ear pain Patient Tobacco Use Status: Never used Tobacco Allergies alendronate sodium [From FOSAMAX] Allergy (Intermediate, Verified 04/08/23 08:39) DIARRHEA ciprofloxacin [CIPROFLOXACIN] Allergy (Intermediate, Verified 04/08/23 08:39) HEADACHE,SOB hydrochlorothiazide [HYDROCHLOROTHIAZIDE] Allergy (Intermediate, Verified 04/08/23 08:39) HEADACHE,DIZZINESS, Gi upset levofloxacin [From LEVAQUIN] Allergy (Intermediate, Verified 04/08/23 08:39) HEADACHE,SOB metformin [METFORMIN] Allergy (Intermediate, Verified 04/08/23 08:39) DIARRHEA, Gi upset pravastatin [PRAVASTATIN] Allergy (Intermediate, Verified 04/08/23 08:39) HEADACHE,SOB, Gi upset simvastatin [SIMVASTATIN] Allergy (Intermediate, Verified 04/08/23 08:39) HEADACHE,SOB, Gi upset canagliflozin [From INVOKANA] Adverse Reaction (Intermediate, Verified 04/08/23 08:39) DIARRHEA dapagliflozin [From FARXIGA] Adverse Reaction (Intermediate, Verified 04/08/23 08:39) DIARRHEA From PERCOCET Adverse Reaction (Mild, Uncoded 03/10/23 12:11) NAUSEA Do you need a note to return to daycare/school/sports/work: No HPI HPI Comments History of Present Illness Details 82-year-old female presents with URI symptoms. Patient has been experiencing headache congestion and mild cough for a week now. No fevers chills, nausea vomiting PFSH Medical History Annual physical exam Asthma Diabetes mellitus Diastolic dysfunction Family history of total abdominal hysterectomy and bilateral salpingo-oophorectomy (JOANA-BSO) HTN (hypertension) Surgical History History of bladder suspension procedure History of lumpectomy of right breast History of trigger finger History of urethrocutaneous fistula Hx of appendectomy Hx of bilateral cataract extraction Hx of section Hx of hysterectomy Family History Father CAD (coronary artery disease) Mother Parkinson disease Mental health disorder Brother Diabetes Melanoma Social History Housing: House Alcohol intake: never Patient Tobacco Use Status: Never used Tobacco e-Cigarette/Vaping Use: Never Used Second Hand Smoke Exposure: No service: No Current occupational status: retired 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 Cognitive needs: No Hearing needs: No Vision needs: Yes Review of Systems Const All systems reviewed & are unremarkable except as noted in HPI and below Reports headache(s) ENT Reports facial pain, Reports headache(s) and Reports nasal congestion Neuro Reports headache(s) Physical Exam Vital Signs: Last Vital Signs Temp 97.5 F 04/08/23 08:37 Pulse 91 04/08/23 08:37 BP 150/70 H 04/08/23 08:37 Pulse Ox 97 04/08/23 08:37 Oxygen Delivery Method Room Air 04/08/23 08:37 BMI result Body Mass Index 27.6 Const General: cooperative, no acute distress and alert Orientation/consciousness: patient oriented x3 Limitations: no limitations HEENT Other: mild tenderness over the maxillary sinuses Head: Yes normal to inspection Ears: hearing grossly normal bilaterally and external ears normal General nose exam: Normal external nose present Eyes General: appearance normal, both eyes and all related structures Neck Neck: Yes normal visual inspection Chest Chest palpation & inspection: normal inspection of the chest Resp Effort & Inspection: normal respiratory effort, able to speak in complete sentences and no audible wheezes Auscultation: clear to auscultation bilaterally Cardio Rate: regular rate Rhythm: regular rhythm GI Inspection: Yes normal to inspection Palpation (GI): Soft to palpation and nontender Skin General skin exam: no rashes or lesions noted Neuro General: patient oriented x3 Psych Appearance: grossly normal Mental Status: mental status grossly normal Speech and movement: Normal speech and movement present Affect: normal affect Attitude: cooperative Thought process: Normal thought process present Thought content: Normal thought content present Assessment & Plan Assessment & Plan (1) URI (upper respiratory infection): Code(s): J06.9 - Acute upper respiratory infection, unspecified Qualifiers: URI type: unspecified URI Qualified Code(s): J06.9 - Acute upper respiratory infection, unspecified Plan symptoms consistent with URI given duration will prescribe azithromycin. Discharge instructions, follow up and treatment are discussed with patient in my usual fashion. Alternatives in treatment are also discussed. The patient will return for worsening symptoms or as needed. Advised that any labs/imaging ordered will be followed up on and contact made if further treatment needed. Counseled that patient's condition may require further evaluation and/or treatment. Symptoms of concern for worsening disorder discussed in detail in my customary manner. Patient does verbalize understanding of the plan, there are no apparent barriers to communication. The patient is given the opportunity to ask questions and have them answered to his/her satisfaction Medications: New azithromycin For 250 mg dose pack: take 500 mg today (day 1), then 250 mg for 4 days (days 2-5) PO 6 tabs 0RF Patient Instructions: You were seen and evaluated for your cold-like symptoms. We cannot say for sure at this time examination is reassuring. We believe is likely suffering from a viral URI. Recommend continued symptomatic treatment using saline rinses Tylenol Motrin as needed. You have been prescribed Azithromycin. You should return to clinic or the emergency department if you experience any new worsening symptoms such as chest pain, shortness of breath, nausea, vomiting, abdominal pain, or any concerning symptoms I mentioned above. Coding Level of Care Code Est Pt Level 3 (92635) Diagnoses Upper respiratory tract infection, unspecified type J06.9 URI type: unspecified URI
[2023-04-08 08:37] VITALS: BP 150/70; PULSE 91; TEMP 36.4; O2SAT 97; BMI 27.6
== END 2023-04-08 09:43 | disposition home or self-care (01) ==
PROVIDERS: Visit Provider Physician Assistant
DX: J06.9 Acute upper respiratory infection, unspecified (principal)
CPT/HCPCS: 99213

== ENCOUNTER 2023-05-31 13:52 | Outpatient (AMB) | payer MEDICARE, OTHER, SELFPAY ==
[2023-05-31 14:06] VITALS: BP 122/78; PULSE 73; O2SAT 97; BMI 27.4
--- NOTE | 2023-05-31 14:06 | A.OFFPC_ITS ---
Vital Signs 05/31/23 14:06 Height 5 ft 1 in Weight 145 lb BMI 27.4 BP 122/78 Blood Pressure Location Lt brachial Position Sitting Pulse 73 Pulse Source Pulse Oximeter Pulse Oximetry (%) 97 Oxygen Delivery Method Room Air Intake Visit Reasons: Osteoporosis medication Follow Up Intake Note: Pt is here today for a follow up visit. Allergies alendronate sodium [From FOSAMAX] Allergy (Intermediate, Verified 05/31/23 14:12) DIARRHEA ciprofloxacin [CIPROFLOXACIN] Allergy (Intermediate, Verified 05/31/23 14:12) HEADACHE,SOB hydrochlorothiazide [HYDROCHLOROTHIAZIDE] Allergy (Intermediate, Verified 05/31/23 14:12) HEADACHE,DIZZINESS, Gi upset levofloxacin [From LEVAQUIN] Allergy (Intermediate, Verified 05/31/23 14:12) HEADACHE,SOB metformin [METFORMIN] Allergy (Intermediate, Verified 05/31/23 14:12) DIARRHEA, Gi upset pravastatin [PRAVASTATIN] Allergy (Intermediate, Verified 05/31/23 14:12) HEADACHE,SOB, Gi upset simvastatin [SIMVASTATIN] Allergy (Intermediate, Verified 05/31/23 14:12) HEADACHE,SOB, Gi upset canagliflozin [From INVOKANA] Adverse Reaction (Intermediate, Verified 05/31/23 14:12) DIARRHEA dapagliflozin [From FARXIGA] Adverse Reaction (Intermediate, Verified 05/31/23 14:12) DIARRHEA From PERCOCET Adverse Reaction (Mild, Uncoded 05/31/23 14:12) NAUSEA Medication List - Last Reconciled 05/31/23 by Corrine Spangler MD albuterol sulfate mg inhalation TID albuterol sulfate 90 mcg/actuation inhalation ascorbic acid (vitamin C) mg PO aspirin (Adult Low Dose Aspirin) 81 mg PO DAILY blood sugar diagnostic As directed blood sugar diagnostic One touch test strips use 1 strip to test blood sugar once daily diltiazem HCl 240 mg PO DAILY dulaglutide (Trulicity) 3 mg (0.5 mL) subcut QWEEK fluticasone propionate 220 mcg/actuation 2 puffs PO BID glipizide ER 10 mg PO BID lactobacillus combination no.9 (Adult 50 Plus Probiotic) 4,000 mmu cells PO DAILY losartan 100 mg PO DAILY mecobalamin (vitamin B12) 1,000 mcg sublingual DAILY methenamine hippurate 1 g PO BID metronidazole 0.75% 1 appl topical BID montelukast 10 mg PO DAILY omega-3 fatty acids-fish oil 360-1,200 mg (Fish Oil) 1 cap PO DAILY omeprazole 20 mg PO DAILY polaprezinc (zinc carnosine) PO zoledronic yxcx-yrhfwkzc-pdhev 5 mg/100 mL (Reclast) 1 ea IV ONCE Tobacco use date assessed: 09/08/22 HPI Osteoporosis medication Follow Up HPI Details Pt presents for f/u osteoporosis. She has been getting Prolia injections since 2019 but the most recent DEXA showed a worsening of osteoporosis with the lowest T score of -3.9 in femoral neck from -3.0 in femoral neck in 2019. Patient has been taking vitamin-D supplement and has not had any recent fractures. Type 2 diabetes and hypertension are controlled on current medications ON LICENSE OF [facility] Medical History Annual physical exam Asthma Diabetes mellitus HTN (hypertension) Diastolic dysfunction Family history of total abdominal hysterectomy and bilateral salpingo-oophorect kvng (JOANA-BSO) Surgical History Hx of bilateral cataract extraction History of bladder suspension procedure History of lumpectomy of right breast History of trigger finger History of urethrocutaneous fistula Hx of hysterectomy Hx of section Hx of appendectomy Family History Father CAD (coronary artery disease) Mother Parkinson disease Mental health disorder Brother Diabetes Melanoma Social History Housing: House Alcohol intake: never Patient Tobacco Use Status: Never used Tobacco e-Cigarette/Vaping Use: Never Used Second Hand Smoke Exposure: No service: No Current occupational status: retired 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 Nishant Reyes, Bhavani Lee, Samy Voss and colleagues, with an educational kai from [employer] Review of Systems Const All systems reviewed & are unremarkable except as noted in HPI and below Reports no additional complaints Eyes Reports no additional complaints ENT Reports no additional complaints Card Reports no additional complaints Resp Reports no additional complaints GI Reports no additional complaints Reports no additional complaints Physical exam (Primary Care) Vital Signs: Last Vital Signs Pulse 73 05/31/23 14:06 BP 122/78 05/31/23 14:06 Pulse Ox 97 05/31/23 14:06 Oxygen Delivery Method Room Air 05/31/23 14:06 BMI result Body Mass Index 27.4 Tobacco/Smoking Status: Tobacco use Status Tobacco use date assessed 09/08/22 05/31/23 14:13 Patient Tobacco Use Status Never used Tobacco 05/31/23 14:13 e-Cigarette/Vaping Use Never Used 05/31/23 14:13 Thrive Assessment: Date of Thrive Assessment Date Thrive assessed 09/08/22 05/31/23 14:13 Const General: no acute distress HENMT Ears: hearing grossly normal bilaterally Face and sinus: Yes normal facial exam Resp Effort & Inspection: normal respiratory effort Auscultation: clear to auscultation bilaterally Cardio Rhythm: regular rhythm Heart sounds: S1 normal heart sound present and S2 normal heart sound present GI Inspection: Yes normal to inspection Palpation (GI): Soft to palpation Assessment and Plan Assessment & Plan (1) Osteoporosis: Comment: DEXA 01/2021 T score-3.0 unchanged from 11/2018 , Prolia since 2018, Tscore in femoral neck-3.9 03/24. Reclast ordered 05/24 Code(s): M81.0 - Age-related osteoporosis without current pathological fracture Plan: Because of the worsening osteoporosis Prolia will be discontinue and Reclast infusion started annually for 2 years and then DEXA will be rechecked. weight- bearing exercises was advised and patient will continue vitamin-D supplement (2) Diabetes mellitus: Code(s): E11.9 - Type 2 diabetes mellitus without complications Plan: Continue current medication follow-up in September with a fasting labs before Medications: Refilled zoledronic cssf-awepdaci-gxgnc 5 mg/100 mL (Reclast) 1 ea IV ONCE 100 mL 0RF zoledronic akrq-hxdyuwui-vbyri 5 mg/100 mL (Reclast) 1 ea IV ONCE 100 mL 0RF Coding Level of Care Code Est Pt Level 4 (52293) Diagnoses Osteoporosis M81.0 Diabetes mellitus E11.9
== END 2023-05-31 15:24 | disposition home or self-care (01) ==
PROVIDERS: Visit Provider Internal Medicine
DX: M81.0 Age-related osteoporosis without current pathological fracture (principal); E11.9 Type 2 diabetes mellitus without complications
CPT/HCPCS: 99214

== ENCOUNTER 2023-06-09 06:08 | Outpatient (REF) | payer MEDICARE, OTHER, SELFPAY ==
[2023-06-09 11:56] LABS: Blood Urea Nitrogen 14 mg/dL (9-16); Estimated Glomerular Filt Rate > 60
== END 2023-06-09 06:09 | disposition home or self-care (01) ==
LOC: HO.HMGCLDS 06:08
PROVIDERS: PCP Internal Medicine; Visit Provider Internal Medicine
DX: M81.0 Age-related osteoporosis without current pathological fracture (principal)
CPT/HCPCS: 36415; 82565; 84520

== ENCOUNTER 2023-06-16 12:47 | Outpatient (REF) | payer MEDICARE, OTHER, SELFPAY | END 2023-06-16 12:48 | disposition home or self-care (01) | LOC: HO.MDS 12:47 | PROVIDERS: Visit Provider Internal Medicine | DX: M81.0 Age-related osteoporosis without current pathological fracture (principal) | CPT/HCPCS: 96365; J3489 ==

== ENCOUNTER 2023-08-11 13:10 | Outpatient (AMB) | payer MEDICARE, OTHER, SELFPAY ==
[2023-08-11 13:12] VITALS: BP 120/70; PULSE 63; BMI 27.9
--- NOTE | 2023-08-11 13:12 | MHC.OFFVIS ---
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 Allergies alendronate sodium [From FOSAMAX] Allergy (Intermediate, Verified 05/31/23 14:12) DIARRHEA ciprofloxacin [CIPROFLOXACIN] Allergy (Intermediate, Verified 05/31/23 14:12) HEADACHE,SOB hydrochlorothiazide [HYDROCHLOROTHIAZIDE] Allergy (Intermediate, Verified 05/31/23 14:12) HEADACHE,DIZZINESS, Gi upset levofloxacin [From LEVAQUIN] Allergy (Intermediate, Verified 05/31/23 14:12) HEADACHE,SOB metformin [METFORMIN] Allergy (Intermediate, Verified 05/31/23 14:12) DIARRHEA, Gi upset pravastatin [PRAVASTATIN] Allergy (Intermediate, Verified 05/31/23 14:12) HEADACHE,SOB, Gi upset simvastatin [SIMVASTATIN] Allergy (Intermediate, Verified 05/31/23 14:12) HEADACHE,SOB, Gi upset canagliflozin [From INVOKANA] Adverse Reaction (Intermediate, Verified 05/31/23 14:12) DIARRHEA dapagliflozin [From FARXIGA] Adverse Reaction (Intermediate, Verified 05/31/23 14:12) DIARRHEA From PERCOCET Adverse Reaction (Mild, Uncoded 05/31/23 14:12) NAUSEA Medication List - Last Reconciled 08/11/23 by Torsten Goyal MD albuterol sulfate mg inhalation TID albuterol sulfate 90 mcg/actuation inhalation ascorbic acid (vitamin C) mg PO aspirin (Adult Low Dose Aspirin) 81 mg PO DAILY blood sugar diagnostic As directed blood sugar diagnostic One touch test strips use 1 strip to test blood sugar once daily diltiazem HCl 240 mg PO DAILY dulaglutide (Trulicity) 3 mg (0.5 mL) subcut QWEEK fluticasone propionate 220 mcg/actuation 2 puffs PO BID glipizide ER 10 mg PO BID lactobacillus combination no.9 (Adult 50 Plus Probiotic) 4,000 mmu cells PO DAILY losartan 100 mg PO DAILY mecobalamin (vitamin B12) 1,000 mcg sublingual DAILY methenamine hippurate 1 g PO BID metronidazole 0.75% 1 appl topical BID montelukast 10 mg PO DAILY omega-3 fatty acids-fish oil 360-1,200 mg (Fish Oil) 1 cap PO DAILY omeprazole 20 mg PO DAILY polaprezinc (zinc carnosine) PO HPI HPI Comments History of Present Illness Details Genie comes for follow-up. She has occasionally she has symptoms of palpitation which she discusses flutter. Happens about once a month with no clear triggering factors. Last for few minutes and then disappears. No other associated complaints. She maintains independent lifestyle. Denies any exertional chest pain or shortness of breath. Denies any heart failure symptoms. Takes all her medications. [facility] Medical History Annual physical exam Asthma Diabetes mellitus HTN (hypertension) Diastolic dysfunction Family history of total abdominal hysterectomy and bilateral salpingo-oophorectomy (JOANA-BSO) Surgical History Hx of bilateral cataract extraction History of bladder suspension procedure History of lumpectomy of right breast History of trigger finger History of urethrocutaneous fistula Hx of hysterectomy Hx of section Hx of appendectomy Family History Father CAD (coronary artery disease) Mother Parkinson disease Mental health disorder Brother Diabetes Melanoma Social History Housing: House Alcohol intake: never Patient Tobacco Use Status: Never used Tobacco e-Cigarette/Vaping Use: Never Used Second Hand Smoke Exposure: No service: No Current occupational status: retired 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 Cognitive needs: No Hearing needs: No Vision needs: Yes Review of Systems Const Denies chills, Denies fatigue, Denies fever(s), Denies frequent falls, Denies weakness, Denies weight gain and Denies weight loss ENT Denies dizziness Card Denies chest pain, Denies leg edema, Denies lightheadedness, Denies palpitations, Denies dyspnea, Denies dyspnea on exertion, Denies orthopnea and Denies other (loss of consciousness) Resp Denies cough, Denies dyspnea and Denies dyspnea on exertion GI Denies hematochezia and Denies change in stool character Musc Denies abnormal gait, Denies muscle weakness, Denies numbness, Denies radiating pain into limb and Denies tingling Neuro Denies abnormal gait, Denies dizziness, Denies frequent falls, Denies numbness, Denies tingling and Denies weakness Endo Denies fatigue and Denies palpitations Physical Exam Vital Signs: Last Vital Signs Pulse 63 08/11/23 13:12 BP 120/70 08/11/23 13:12 BMI result Body Mass Index 27.9 Const General: cooperative, healthy appearing, comfortable, no acute distress, alert, awake and well groomed Nutritional Appearance: overweight Orientation/consciousness: patient oriented x3 Limitations: no limitations HEENT Head: Yes normal to inspection, Yes normocephalic and Yes atraumatic Eyes General: appearance normal, both eyes and all related structures Neck Neck: Yes full ROM, Yes trachea midline and Yes no JVD Chest Chest palpation & inspection: normal inspection of the chest Resp Effort & Inspection: normal respiratory effort Auscultation: clear to auscultation bilaterally Cardio Rate: regular rate Rhythm: regular rhythm Heart sounds: S1 normal heart sound present and S2 normal heart sound present GI Inspection: Yes normal to inspection Auscultation: normal bowel sounds Skin General skin exam: elasticity normal and turgor normal Neuro General: patient oriented x3 and no focal motor deficits Extrem General: Yes no clubbing, cyanosis or edema Psych Appearance: grossly normal Mental Status: mental status grossly normal Office Procedures EKG Details: EKG shows normal sinus rhythm with normal EKG [id number], Complete Assessment & Plan Assessment & Plan (1) Palpitations: Code(s): R00.2 - Palpitations Plan: Patient intermittent history of palpitation which are infrequent and lasting short time and symptoms consistent with most likely extra systoles such as PACs. No prolonged palpitations suggestive atrial fibrillation. Continue Cardizem therapy. Avoidance of stimulants was discussed. Stress mitigation strategies was discussed. No further workup is indicated at this point time. (2) HTN (hypertension): Code(s): I10 - Essential (primary) hypertension Plan: Hypertension which is currently well optimized. Importance of good blood pressure control was discussed. Target goal blood pressure less than 130/84. Advised to monitor blood pressure at home maintain a log. Low-salt diet was discussed. (3) Diastolic dysfunction: Code(s): I51.89 - Other ill-defined heart diseases Plan: Diastolic dysfunction secondary to hypertensive heart disease. Clinically appears to be euvolemic and well compensated without any progressive symptoms of heart failure signs of congestive heart failure. Continue monitor for the same. Continue aggressive blood pressure control. Will follow up in the clinic in 1 year's time, sooner p.r.n.. Thank you for allowing me to partake in the care Coding Level of Care Code Est Pt Level 4 (15523) Diagnoses Palpitations R00.2 HTN (hypertension) I10 Diastolic dysfunction I51.89 CPT Codes EKG - CPT: 64318-[id number], Complete ([id number])
== END 2023-08-11 13:48 | disposition home or self-care (01) ==
PROVIDERS: Visit Provider Internal Medicine Cardiovascular Disease
DX: R00.2 Palpitations (principal); I10 Essential (primary) hypertension; I51.89 Other ill-defined heart diseases
CPT/HCPCS: 93010; 99214

== ENCOUNTER → 2023-08-11 13:10 | Outpatient (BNVA) | payer MEDICARE, OTHER, SELFPAY | PROVIDERS: Visit Provider Internal Medicine Cardiovascular Disease | DX: R00.2 Palpitations (principal); I10 Essential (primary) hypertension; I51.89 Other ill-defined heart diseases | CPT/HCPCS: 93005; 99212 ==

== ENCOUNTER 2023-09-28 12:40 | Outpatient (AMB) | payer MEDICARE, OTHER, SELFPAY ==
--- NOTE | 2023-09-28 12:41 | A.OFFPC_ITS ---
Vital Signs 09/28/23 12:42 Height 5 ft 1 in Weight 148 lb BMI 28.0 BP 136/80 Blood Pressure Location Lt brachial Position Sitting Pulse 64 Pulse Source Pulse Oximeter Pulse Oximetry (%) 96 Oxygen Delivery Method Room Air Intake Visit Reasons: 6 mth Follow up DM Intake Note: Pt is here today for 6 months follow up visit on DM. Allergies alendronate sodium [From FOSAMAX] Allergy (Intermediate, Verified 09/28/23 12:42) DIARRHEA ciprofloxacin [CIPROFLOXACIN] Allergy (Intermediate, Verified 09/28/23 12:42) HEADACHE,SOB hydrochlorothiazide [HYDROCHLOROTHIAZIDE] Allergy (Intermediate, Verified 09/28/23 12:42) HEADACHE,DIZZINESS, Gi upset levofloxacin [From LEVAQUIN] Allergy (Intermediate, Verified 09/28/23 12:42) HEADACHE,SOB metformin [METFORMIN] Allergy (Intermediate, Verified 09/28/23 12:42) DIARRHEA, Gi upset pravastatin [PRAVASTATIN] Allergy (Intermediate, Verified 09/28/23 12:42) HEADACHE,SOB, Gi upset simvastatin [SIMVASTATIN] Allergy (Intermediate, Verified 09/28/23 12:42) HEADACHE,SOB, Gi upset canagliflozin [From INVOKANA] Adverse Reaction (Intermediate, Verified 09/28/23 12:42) DIARRHEA dapagliflozin [From FARXIGA] Adverse Reaction (Intermediate, Verified 09/28/23 12:42) DIARRHEA mannitol [From Reclast] Adverse Reaction (Verified 09/28/23 13:05) bone pain water for injection,sterile [From Reclast] Adverse Reaction (Verified 09/28/23 13:05) bone pain zoledronic acid [From Reclast] Adverse Reaction (Verified 09/28/23 13:05) bone pain From PERCOCET Adverse Reaction (Mild, Uncoded 09/28/23 12:42) NAUSEA Medication List - Last Reconciled 09/28/23 by Corrine Spangler MD albuterol sulfate mg inhalation TID albuterol sulfate 90 mcg/actuation inhalation ascorbic acid (vitamin C) mg PO aspirin (Adult Low Dose Aspirin) 81 mg PO DAILY blood sugar diagnostic As directed blood sugar diagnostic One touch test strips use 1 strip to test blood sugar once daily diltiazem HCl 240 mg PO DAILY dulaglutide (Trulicity) 3 mg (0.5 mL) subcut QWEEK fluticasone propionate 220 mcg/actuation 2 puffs PO BID glipizide ER 10 mg PO BID lactobacillus combination no.9 (Adult 50 Plus Probiotic) 4,000 mmu cells PO DAILY losartan 100 mg PO DAILY mecobalamin (vitamin B12) 1,000 mcg sublingual DAILY methenamine hippurate 1 g PO BID metronidazole 0.75% 1 appl topical BID montelukast 10 mg PO DAILY omega-3 fatty acids-fish oil 360-1,200 mg (Fish Oil) 1 cap PO DAILY omeprazole 20 mg PO DAILY polaprezinc (zinc carnosine) PO Tobacco use date assessed: 09/28/23 Fall risk assessment: No Falls in past year Last assessed Fall Risk: 09/28/23 Dental Screening Dental Screen Date: 09/28/23 Did you have a dental visit in the last 12 months?: Yes Did you have a dental problem in the last 6 months where you did not have access to dental care?: No Was dental information given to patient?: Patient has dentist HPI 6 mth Follow up DM HPI Details Patient presents for the follow-up of type 2 diabetes hypertension stable on current medications. She complains of right upper thigh pain when starting to walk on laying on the right side. The pain improves with activity. [facility] Medical History Annual physical exam Asthma Diabetes mellitus HTN (hypertension) Diastolic dysfunction Family history of total abdominal hysterectomy and bilateral salpingo- oophorectomy (OJANA-BSO) Surgical History Hx of bilateral cataract extraction History of bladder suspension procedure History of lumpectomy of right breast History of trigger finger History of urethrocutaneous fistula Hx of hysterectomy Hx of section Hx of appendectomy Family History Father CAD (coronary artery disease) Mother Parkinson disease Mental health disorder Brother Diabetes Melanoma Social History Housing: House Alcohol intake: never Patient Tobacco Use Status: Never used Tobacco e-Cigarette/Vaping Use: Never Used Second Hand Smoke Exposure: No service: No Current occupational status: retired 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 1. Little interest or pleasure in doing things: not at all 2. Feeling down, depressed, or hopeless: not at all 3. Trouble falling or staying asleep, or sleeping too much: not at all 4. Feeling tired or having little energy: not at all 5. Poor appetite or overeating: not at all 6. Feeling bad about yourself - or that you are a failure or have let yourself or your family down: not at all 7. Trouble concentrating on things, such as reading the newspaper or watching television: not at all 8. Moving or speaking so slowly that other people could have noticed. Or the opposite - being so fidgety or restless that you have been moving around a lot more than usual: not at all 9. Thoughts that you would be better off or of hurting yourself in some way: not at all Total score: 0 Depression Screening Interpretation: Negative Depression Screening Done: Yes Source: Developed by Drs. Nishant Reyes, Bhavani Lee, Samy Voss and colleagues, with an educational kai from [employer]. Thrive Questionnaire Date Thrive assessed: 09/28/23 I am a: Patient What is your living situation today?: I have a steady place to live Within the past 12 months, did the food you bought not last and you didn't have the money to get more?: Never true Within the past 12 months, did you worry whether your food would run out before you got money to buy more?: Never true Do you have trouble paying for medicines?: No Do you have trouble getting transportation to medical appointments?: No Do you have trouble paying your heating and electricity bill?: No Do you have trouble taking care of your child, family member or friend?: No Do you have trouble with day-to-day activities such as bathing, preparing meals, shopping, managing finances, etc.?: No Are you currently unemployed and looking for a job?: No Are you interested in more education?: No Please select the resources that you would like help with: None Currently or been in a relationship where the following occur: no concerns reported THRIVE Score: 0 AUDIT C Alcohol Use Questionnaire (AUDIT-C) 1. How often do you have a drink containing alcohol?: Never 3. How often do you have six or more drinks on one occasion?: Never Total Score: 0 EDNA-7 AMB Questionnaire EDNA-7 Date EDNA - 7 assessed: 09/28/23 Feeling nervous, anxious, or on edge: 0 = Not at all Not being able to stop or control worryin = Not at all Worrying too much about different things: 0 = Not at all Trouble relaxin = Not at all Being so restless that it is hard to sit still: 0 = Not at all Becoming easily annoyed or irritable: 0 = Not at all Feeling afraid as if something awful might happen: 0 = Not at all Total EDNA-7 score (0-4 normal; 5-9 mild; 10-14 moderate; 15-21 severe): 0 Source: Developed by Drs. Nishant Reyes, Bhavani Lee, Samy Voss and colleagues, with an educational kai from [employer]. Review of Systems Const All systems reviewed & are unremarkable except as noted in HPI and below Reports no additional complaints Eyes Reports no additional complaints ENT Reports no additional complaints Card Reports no additional complaints Resp Reports no additional complaints GI Reports no additional complaints Reports no additional complaints Physical exam (Primary Care) Vital Signs: Last Vital Signs Pulse 64 09/28/23 12:42 BP 136/80 09/28/23 12:42 Pulse Ox 96 09/28/23 12:42 Oxygen Delivery Method Room Air 09/28/23 12:42 BMI result Body Mass Index 28.0 Tobacco/Smoking Status: Tobacco use Status Tobacco use date assessed 09/28/23 09/28/23 12:43 Patient Tobacco Use Status Never used Tobacco 09/28/23 12:43 e-Cigarette/Vaping Use Never Used 09/28/23 12:41 PHQ-9: PHQ-9 Score PHQ-9: Total score 0 09/28/23 12:52 Depression Screening Interpretation: Negative Thrive Assessment: Date of Thrive Assessment Date Thrive assessed 09/28/23 09/28/23 12:52 Currently or been in a relationship where the following occur: no concerns reported Const General: no acute distress HENMT Head: Yes normal to inspection Ears: hearing grossly normal bilaterally Eyes General: appearance normal, both eyes and all related structures Resp Effort & Inspection: normal respiratory effort Auscultation: clear to auscultation bilaterally Cardio Rhythm: regular rhythm Heart sounds: S1 normal heart sound present and S2 normal heart sound present GI Inspection: Yes normal to inspection Palpation (GI): Soft to palpation Extrem Other: Reproducible tenderness in the right trochanteric area, right hip with full range of motion, straight leg rising 90 degrees bilaterally General: Yes no clubbing, cyanosis or edema Assessment and Plan Assessment & Plan (1) HTN (hypertension): Code(s): I10 - Essential (primary) hypertension Plan: Continue current medications (2) Diabetes mellitus: Code(s): E11.9 - Type 2 diabetes mellitus without complications Plan: ADA diet increase exercise weight loss discussed with the patient. Continue current medications return for fasting blood work (3) Osteoporosis: Comment: DEXA 01/2021 T score-3.0 unchanged from 11/2018 , Prolia since 2019, Tscore in femoral neck-3.9 03/24. Reclast infusion 05/24, side effect : body aches Code(s): M81.0 - Age-related osteoporosis without current pathological fracture Plan: Continue vitamin-D and weight-bearing exercises at senior center recommended Orders: Orders Microalbumin, Random (w Creat) 3 Months E11.9 - Type 2 diabetes mellitus without complications, E53.8 - Deficiency of other specified B group vitamins, E55.9 - Vitamin D deficiency, unspecified, I10 - Essential (primary) hypertension, M81.0 - Age-related osteoporosis without current pathological fracture Comprehensive [place]. Panel Fast 3 Months E11.9 - Type 2 diabetes mellitus without complications, E53.8 - Deficiency of other specified B group vitamins, E55.9 - Vitamin D deficiency, unspecified, I10 - Essential (primary) hypertension, M81.0 - Age-related osteoporosis without current pathological fracture Hemoglobin A1c 3 Months E11.9 - Type 2 diabetes mellitus without complications, E53.8 - Deficiency of other specified B group vitamins, E55.9 - Vitamin D deficiency, unspecified, I10 - Essential (primary) hypertension, M81.0 - Age- related osteoporosis without current pathological fracture Complete Blood Count Auto Diff 3 Months E11.9 - Type 2 diabetes mellitus without complications, E53.8 - Deficiency of other specified B group vitamins, E55.9 - Vitamin D deficiency, unspecified, I10 - Essential (primary) hypertension, M81.0 - Age-related osteoporosis without current pathological fracture Lipid Panel 3 Months E11.9 - Type 2 diabetes mellitus without complications, E53.8 - Deficiency of other specified B group vitamins, E55.9 - Vitamin D deficiency, unspecified, I10 - Essential (primary) hypertension, M81.0 - Age- related osteoporosis without current pathological fracture Vitamin B12 3 Months E11.9 - Type 2 diabetes mellitus without complications, E53.8 - Deficiency of other specified B group vitamins, E55.9 - Vitamin D deficiency, unspecified, I10 - Essential (primary) hypertension, M81.0 - Age- related osteoporosis without current pathological fracture Vitamin D 25-OH Total 3 Months E11.9 - Type 2 diabetes mellitus without complications, E53.8 - Deficiency of other specified B group vitamins, E55.9 - Vitamin D deficiency, unspecified, I10 - Essential (primary) hypertension, M81.0 - Age-related osteoporosis without current pathological fracture Medications: Refilled blood sugar diagnostic One touch test strips use 1 strip to test blood sugar once daily 100 ea 3RF E11.9 - Type 2 diabetes mellitus without complications Coding Level of Care Code Est Pt Level 4 (24597) Diagnoses HTN (hypertension) I10 Diabetes mellitus E11.9 Osteoporosis M81.0
[2023-09-28 12:42] VITALS: BP 136/80; PULSE 64; O2SAT 96; BMI 28.0
== END 2023-09-28 13:27 | disposition home or self-care (01) ==
PROVIDERS: PCP Internal Medicine; Visit Provider Internal Medicine
DX: I10 Essential (primary) hypertension (principal); E11.9 Type 2 diabetes mellitus without complications; M81.0 Age-related osteoporosis without current pathological fracture
CPT/HCPCS: 99214

== ENCOUNTER 2023-11-10 09:39 | Emergency (ER) | payer MEDICARE, OTHER, SELFPAY | END 2023-11-10 10:17 | disposition left against medical advice (07) | PROVIDERS: Emergency Provider Emergency Medicine; PCP Internal Medicine | DX: M79.602 Pain in left arm (principal) ==

== ENCOUNTER 2023-11-18 12:34 | Outpatient (AMB) | payer MEDICARE, OTHER, SELFPAY ==
[2023-11-18 13:04] VITALS: BP 130/75; PULSE 78; O2SAT 96; BMI 28.2
--- NOTE | 2023-11-18 13:04 | A.OFFPC_ITS ---
Vital Signs 11/18/23 13:04 Height 5 ft 1 in Weight 149 lb BMI 28.2 BP 130/75 Blood Pressure Location Rt brachial Position Sitting Pulse 78 Pulse Source Pulse Oximeter Pulse Oximetry (%) 96 Oxygen Delivery Method Room Air Intake Visit Reasons: Pain on left arm, stomach, breast. She fell Intake Note: Pt is here today for a sick visit. Pt c/o fall on 10/31/23 and she has been having pain in her L arm, abdomen. Allergies alendronate sodium [From FOSAMAX] Allergy (Intermediate, Verified 11/18/23 13:07) DIARRHEA ciprofloxacin [CIPROFLOXACIN] Allergy (Intermediate, Verified 11/18/23 13:07) HEADACHE,SOB hydrochlorothiazide [HYDROCHLOROTHIAZIDE] Allergy (Intermediate, Verified 11/18/23 13:07) HEADACHE,DIZZINESS, Gi upset levofloxacin [From LEVAQUIN] Allergy (Intermediate, Verified 11/18/23 13:07) HEADACHE,SOB metformin [METFORMIN] Allergy (Intermediate, Verified 11/18/23 13:07) DIARRHEA, Gi upset pravastatin [PRAVASTATIN] Allergy (Intermediate, Verified 11/18/23 13:07) HEADACHE,SOB, Gi upset simvastatin [SIMVASTATIN] Allergy (Intermediate, Verified 11/18/23 13:07) HEADACHE,SOB, Gi upset canagliflozin [From INVOKANA] Adverse Reaction (Intermediate, Verified 11/18/23 13:07) DIARRHEA dapagliflozin [From FARXIGA] Adverse Reaction (Intermediate, Verified 11/18/23 13:07) DIARRHEA mannitol [From Reclast] Adverse Reaction (Verified 11/18/23 13:07) bone pain water for injection,sterile [From Reclast] Adverse Reaction (Verified 11/18/23 13:07) bone pain zoledronic acid [From Reclast] Adverse Reaction (Verified 11/18/23 13:07) bone pain From PERCOCET Adverse Reaction (Mild, Uncoded 11/18/23 13:07) NAUSEA Medication List - Last Reconciled 11/18/23 by Corrine Spangler MD albuterol sulfate mg inhalation TID albuterol sulfate 90 mcg/actuation inhalation ascorbic acid (vitamin C) mg PO aspirin (Adult Low Dose Aspirin) 81 mg PO DAILY blood sugar diagnostic As directed blood sugar diagnostic One touch test strips use 1 strip to test blood sugar once daily diltiazem HCl CD 240 mg PO DAILY dulaglutide (Trulicity) 3 mg (0.5 mL) subcut QWEEK fluticasone propionate 220 mcg/actuation 2 puffs PO BID glipizide ER 10 mg PO BID lactobacillus combination no.9 (Adult 50 Plus Probiotic) 4,000 mmu cells PO LYNNETTE Y losartan 100 mg PO DAILY mecobalamin (vitamin B12) 1,000 mcg sublingual DAILY methenamine hippurate 1 g PO BID metronidazole 0.75% 1 appl topical BID montelukast 10 mg PO DAILY omega-3 fatty acids-fish oil 360-1,200 mg (Fish Oil) 1 cap PO DAILY omeprazole 20 mg PO DAILY polaprezinc (zinc carnosine) PO Tobacco use date assessed: 09/28/23 Fall risk assessment: 1 Fall in past year Last assessed Fall Risk: 11/18/23 Dental Screening Dental Screen Date: 09/28/23 HPI Pain on left arm, stomach, breast. She fell HPI Details Pt tripped and fell 2 weeks ago. She denies LOC and head injury. Patient complains of persistent anterior chest pain worse with a change in position since the fall. Patient denies cough shortness for breath pleurisy fe dionicio or chills. She had left shoulder pain after fall which resolved completely. Patient is concerned about persistent skin thickening at the place Trulicity injection. Diabetes is well controlled. Hypertension is controlled on losartan. [facility] Medical History Annual physical exam Asthma Diabetes mellitus HTN (hypertension) Diastolic dysfunction Family history of total abdominal hysterectomy and bilateral salpingo- oophorectomy (JOANA-BSO) Surgical History Hx of bilateral cataract extraction History of bladder suspension procedure History of lumpectomy of right breast History of trigger finger History of urethrocutaneous fistula Hx of hysterectomy Hx of section Hx of appendectomy Family History Father CAD (coronary artery disease) Mother Parkinson disease Mental health disorder Brother Diabetes Melanoma Social History Housing: House Alcohol intake: never Patient Tobacco Use Status: Never used Tobacco e-Cigarette/Vaping Use: Never Used Second Hand Smoke Exposure: No service: No Current occupational status: retired 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 Nishant Reyes, Bhavani Lee, Samy Voss and colleagues, with an educational kai from [employer]. Review of Systems Const All systems reviewed & are unremarkable except as noted in HPI and below Eyes Reports no additional complaints ENT Reports no additional complaints Card Reports no additional complaints Resp Reports no additional complaints GI Reports no additional complaints Reports no additional complaints Physical exam (Primary Care) Vital Signs: Last Vital Signs Pulse 78 11/18/23 13:04 Pulse Ox 96 11/18/23 13:04 Oxygen Delivery Method Room Air 11/18/23 13:04 BMI result Body Mass Index 28.2 Tobacco/Smoking Status: Tobacco use Status Tobacco use date assessed 09/28/23 11/18/23 13:09 Patient Tobacco Use Status Never used Tobacco 11/18/23 13:09 e-Cigarette/Vaping Use Never Used 11/18/23 13:09 Thrive Assessment: Date of Thrive Assessment Date Thrive assessed 09/28/23 11/18/23 13:09 Const General: no acute distress HENMT Face and sinus: Yes normal facial exam Eyes General: appearance normal, both eyes and all related structures Neck Neck: Yes supple Chest Chest palpation & inspection: localized rib tenderness with anteroposterior compression (Lower ribs bilaterally) Resp Effort & Inspection: normal respiratory effort Auscultation: clear to auscultation bilaterally Cardio Rhythm: regular rhythm Heart sounds: S1 normal heart sound present and S2 normal heart sound present GI Inspection: Yes normal to inspection Palpation (GI): Soft to palpation Percussion: Yes normal to percussion Auscultation: normal bowel sounds Assessment and Plan Assessment & Plan (1) Chest injury: Code(s): S29.9XXA - Unspecified injury of thorax, initial encounter Plan: Check chest x-ray to rule out rib fracture (2) Diabetes mellitus: Code(s): E11.9 - Type 2 diabetes mellitus without complications Plan: Continue current medications. Patient was given option to discontinuing Trulicity because of skin reaction to the injection and starting Jardiance but she would like to wait until her next appointment (3) HTN (hypertension): Code(s): I10 - Essential (primary) hypertension Plan: Continue losartan Orders: Orders XR chest 2V Today S29.9XXA - Unspecified injury of thorax, initial encounter Coding Level of Care Code Est Pt Level 4 (95258) Diagnoses Chest injury S29.9XXA Diabetes mellitus E11.9 HTN (hypertension) I10
== END 2023-11-18 15:32 | disposition home or self-care (01) ==
PROVIDERS: PCP Internal Medicine; Visit Provider Internal Medicine
DX: S29.9XXA Unspecified injury of thorax, initial encounter (principal); E11.9 Type 2 diabetes mellitus without complications; I10 Essential (primary) hypertension
CPT/HCPCS: 99214

== ENCOUNTER 2023-11-18 14:00 | Outpatient (REF) | payer MEDICARE, OTHER, SELFPAY ==
--- NOTE | ~2023-11-18 | XR_ITS ---
EXAMINATION: XR CHEST CLINICAL INFORMATION: Injury of thorax COMPARISON: None available. TECHNIQUE: 2 views of the chest were obtained. FINDINGS: There is a biconvex thoracolumbar scoliosis along with degenerative changes in the spine. The heart and pulmonary vessels appear normal. No infiltrates, effusions or lung masses are seen. XR/XR chest 2V IMPRESSION: No acute intrathoracic disease. Scoliosis and degenerative changes in the spine.
== END 2023-11-18 14:01 | disposition home or self-care (01) ==
LOC: HO.HMGCX 14:00
PROVIDERS: PCP Internal Medicine; Visit Provider Internal Medicine
DX: S29.9XXD Unspecified injury of thorax, subsequent encounter (principal)
CPT/HCPCS: 71046

== ENCOUNTER 2023-11-30 06:34 | Outpatient (REF) | payer MEDICARE, OTHER, SELFPAY ==
[2023-11-30 10:30] LABS: MANUAL DIFF FLAG NO
[2023-11-30 10:37] LABS: Basophils Percent Auto 0.5 % (0-2); Eosinophils Absolute Auto 0.3 X10*3/uL (0.0-0.4); Eosinophils Percent Auto 3.7 % (0-4); Hematocrit 35.9 % (37.0-47.0); Hemoglobin 11.9 g/dl (12.0-16.0); Imm Gran Abs Auto 0.04 X10*3/uL (0.00-0.03); Imm Gran Pct Auto 0.5 % (0.0-0.4); Lymphocytes Percent Auto 27.7 % (20-40); Mean Corpuscular HGB Conc 33.1 g/dl (31.0-35.0); Mean Corpuscular Hemoglobin 30.5 pg (27.0-33.0); Mean Corpuscular Volume 92.1 fL (80.0-98.0); Mean Platelet Volume 10.2 fL (9.4-12.3); Monocytes Absolute Auto 0.7 X10*3/uL (0.1-1.2); Monocytes Percent Auto 9.4 % (2-11); Neutrophils Absolute Auto 4.3 x10*3/uL (2.0-8.3); Neutrophils Percent Auto 58.2 % (45-73); Platelet Count 190 X10*3/uL (160-400); Red Cell Distribution Width 13.9 % (11.0-16.0); White Blood Count 7.3 X10*3/uL (4.8-10.8)
[2023-11-30 11:18] LABS: Alanine Aminotransferase 20 U/L (0-31); Albumin Level 3.7 g/dL (3.5-5.0); Alkaline Phosphatase 94 U/L (39-117); Anion Gap 13 (12-20); Aspartate Amino Transferase 17 U/L (5-31); Bilirubin Total 0.4 mg/dL (0.0-1.0); Blood Urea Nitrogen 16 mg/dL (9-16); Calcium 9.6 mg/dL (8.4-10.2); Carbon Dioxide 26 mmol/L (22-29); Chloride 106 mmol/L (96-108); Cholesterol 166 mg/dL (<200); Estimated Glomerular Filt Rate > 60; Glucose Fasting 181 mg/dL (60-99); HDL Cholesterol 37 mg/dL (>40); LDL Cholesterol Calculated 102 mg/dL (<100); Potassium 3.9 mmol/L (3.3-5.1); Sodium 141 mmol/L (135-145); Total Protein 6.7 g/dL (6.5-8.0); Triglycerides 138 mg/dL (<150)
[2023-11-30 11:20] LABS: Microalbum/Creatinine Ratio Ur 29.4 ug/mg cr (<30); Vitamin D 25-OH Total 59.1 ng/mL (>30)
[2023-11-30 15:43] LABS: Estimated Average Glucose 186 mg/dL; Hemoglobin A1C 196.7982 umol/L; Hemoglobin A1c % 8.1 % (<6.0)
[2023-11-30 16:38] LABS: Folate 8.8 ng/mL (> or = 4.0); Vitamin B12 1067 pg/mL (200-900)
== END 2023-11-30 06:35 | disposition home or self-care (01) ==
LOC: HO.HMGCLDS 06:34
PROVIDERS: PCP Internal Medicine; Visit Provider Internal Medicine
DX: Z00.00 Encounter for general adult medical examination without abnormal findings (principal); E11.9 Type 2 diabetes mellitus without complications; E53.8 Deficiency of other specified B group vitamins; E55.9 Vitamin D deficiency, unspecified; I51.89 Other ill-defined heart diseases; M81.0 Age-related osteoporosis without current pathological fracture
CPT/HCPCS: 36415; 80053; 80061; 82043; 82306; 82570; 82607; 82746; 83036; 85025

== ENCOUNTER 2023-12-06 12:18 | Outpatient (AMB) | payer MEDICARE, OTHER, SELFPAY ==
--- NOTE | 2023-12-06 13:07 | MHC.PC.OV ---
Vital Signs 12/06/23 13:08 Height 5 ft 1 in Weight 149 lb BMI 28.2 BP 120/66 Blood Pressure Location Lt brachial Position Sitting Pulse 78 Pulse Source Pulse Oximeter Pulse Oximetry (%) 98 Oxygen Delivery Method Room Air Intake Visit Reasons: 4M F/U Labs/DM Allergies alendronate sodium [From FOSAMAX] Allergy (Intermediate, Verified 12/06/23 13:16) DIARRHEA ciprofloxacin [CIPROFLOXACIN] Allergy (Intermediate, Verified 12/06/23 13:16) HEADACHE,SOB hydrochlorothiazide [HYDROCHLOROTHIAZIDE] Allergy (Intermediate, Verified 12/06/23 13:16) HEADACHE,DIZZINESS, Gi upset levofloxacin [From LEVAQUIN] Allergy (Intermediate, Verified 12/06/23 13:16) HEADACHE,SOB metformin [METFORMIN] Allergy (Intermediate, Verified 12/06/23 13:16) DIARRHEA, Gi upset pravastatin [PRAVASTATIN] Allergy (Intermediate, Verified 12/06/23 13:16) HEADACHE,SOB, Gi upset simvastatin [SIMVASTATIN] Allergy (Intermediate, Verified 12/06/23 13:16) HEADACHE,SOB, Gi upset canagliflozin [From INVOKANA] Adverse Reaction (Intermediate, Verified 12/06/23 13:16) DIARRHEA dapagliflozin [From FARXIGA] Adverse Reaction (Intermediate, Verified 12/06/23 13:16) DIARRHEA dulaglutide [From Trulicity] Adverse Reaction (Intermediate, Verified 12/06/23 13:29) skin bumps mannitol [From Reclast] Adverse Reaction (Verified 12/06/23 13:16) bone pain water for injection,sterile [From Reclast] Adverse Reaction (Verified 12/06/23 13:16) bone pain zoledronic acid [From Reclast] Adverse Reaction (Verified 12/06/23 13:16) bone pain From PERCOCET Adverse Reaction (Mild, Uncoded 12/06/23 13:16) NAUSEA Medication List - Last Reconciled 12/06/23 by Corrine Spangler MD albuterol sulfate mg inhalation TID albuterol sulfate 90 mcg/actuation inhalation ascorbic acid (vitamin C) mg PO aspirin (Adult Low Dose Aspirin) 81 mg PO DAILY blood sugar diagnostic As directed blood sugar diagnostic One touch test strips use 1 strip to test blood sugar once daily diltiazem HCl CD 240 mg PO DAILY dulaglutide (Trulicity) 3 mg (0.5 mL) subcut QWEEK fluticasone propionate 220 mcg/actuation 2 puffs PO BID glipizide ER 10 mg PO BID lactobacillus combination no.9 (Adult 50 Plus Probiotic) PO lactobacillus combination no.9 (Adult 50 Plus Probiotic) 4,000 mmu cells PO DAILY losartan 100 mg PO DAILY mecobalamin (vitamin B12) 1,000 mcg sublingual DAILY methenamine hippurate 1 g PO BID metronidazole 0.75% 1 appl topical BID montelukast 10 mg PO DAILY omega-3 fatty acids-fish oil 360-1,200 mg (Fish Oil) 1 cap PO DAILY omeprazole 20 mg PO DAILY polaprezinc (zinc carnosine) PO Tobacco use date assessed: 12/06/23 Dental Screening Dental Screen Date: 09/28/23 HPI 4M F/U Labs/DM HPI Details Pt presents for follow-up of type 2 diabetes hypertension chronic asthma. Patient could not tolerate Trulicity. she developed bumps under skin at the site of injection. She has not been compliant with ADA diet eating ice cream and sweets daily PFSH Medical History Annual physical exam Asthma Diabetes mellitus HTN (hypertension) Diastolic dysfunction Family history of total abdominal hysterectomy and bilateral salpingo-oophorectomy (JOANA-BSO) Surgical History Hx of bilateral cataract extraction History of bladder suspension procedure History of lumpectomy of right breast History of trigger finger History of urethrocutaneous fistula Hx of hysterectomy Hx of section Hx of appendectomy Family History Father CAD (coronary artery disease) Mother Parkinson disease Mental health disorder Brother Diabetes Melanoma Social History Housing: House Alcohol intake: never Patient Tobacco Use Status: Never used Tobacco e-Cigarette/Vaping Use: Never Used Second Hand Smoke Exposure: No service: No Current occupational status: retired 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 Nishant Reyes, Bhavani Lee, Samy Voss and colleagues, with an educational kai from [employer]. Review of Systems Const All systems reviewed & are unremarkable except as noted in HPI and below ENT Reports no additional complaints Resp Reports no additional complaints GI Reports no additional complaints Reports no additional complaints Physical exam (Primary Care) Vital Signs: Last Vital Signs Pulse 78 12/06/23 13:08 BP 120/66 12/06/23 13:08 Pulse Ox 98 12/06/23 13:08 Oxygen Delivery Method Room Air 12/06/23 13:08 BMI result Body Mass Index 28.2 Tobacco/Smoking Status: Tobacco use Status Tobacco use date assessed 12/06/23 12/06/23 13:19 Patient Tobacco Use Status Never used Tobacco 12/06/23 13:19 e-Cigarette/Vaping Use Never Used 12/06/23 13:08 Thrive Assessment: Date of Thrive Assessment Date Thrive assessed 09/28/23 12/06/23 13:08 Const General: no acute distress Eyes General: appearance normal, both eyes and all related structures Neck Neck: Yes supple Resp Effort & Inspection: normal respiratory effort Auscultation: clear to auscultation bilaterally Cardio Rhythm: regular rhythm Heart sounds: S1 normal heart sound present and S2 normal heart sound present GI Inspection: Yes normal to inspection Assessment and Plan Assessment & Plan (1) HTN (hypertension): Code(s): I10 - Essential (primary) hypertension Plan: Continue current medications (2) Diabetes mellitus: Comment: Intolerant to Trulicity, Jardiance, Farxiga metformin Code(s): E11.9 - Type 2 diabetes mellitus without complications Plan: A1c is elevated 8.1, ADA diet increase exercise weight loss discussed with the patient. she could not tolerate multiple medications for diabetes. Patient was advised to start insulin to improve diabetes control. Patient declined and will follow-up in 3 months with a fasting labs before Orders: Orders Comprehensive [place]. Panel Fast 3 Months E11.9 - Type 2 diabetes mellitus without complications, I10 - Essential (primary) hypertension Complete Blood Count Auto Diff 3 Months E11.9 - Type 2 diabetes mellitus without complications, I10 - Essential (primary) hypertension Reticulocyte Count 3 Months E11.9 - Type 2 diabetes mellitus without complications, I10 - Essential (primary) hypertension Hemoglobin A1c 3 Months E11.9 - Type 2 diabetes mellitus without complications, I10 - Essential (primary) hypertension IRON PROFILE 3 Months E11.9 - Type 2 diabetes mellitus without complications, I10 - Essential (primary) hypertension Coding Level of Care Code Est Pt Level 4 (91731) Diagnoses HTN (hypertension) I10 Diabetes mellitus E11.9
[2023-12-06 13:08] VITALS: BP 120/66; PULSE 78; O2SAT 98; BMI 28.2
== END 2023-12-06 13:52 | disposition home or self-care (01) ==
PROVIDERS: PCP Internal Medicine; Visit Provider Internal Medicine
DX: I10 Essential (primary) hypertension (principal); E11.9 Type 2 diabetes mellitus without complications
CPT/HCPCS: 99214

== ENCOUNTER 2024-02-21 11:15 | Outpatient (REF) | payer MEDICARE, OTHER, SELFPAY ==
--- NOTE | ~2024-02-21 | MM_ITS ---
EXAMINATION: MM SCREENING DIGITAL BREAST TOMOSYNTHESIS, BILATERAL CLINICAL INFORMATION: Screening. Asymptomatic. The patient has a history of treated right breast cancer. COMPARISON: Mammography: This study is compared with prior exams dating back to 2019. TECHNIQUE: Digital breast tomosynthesis is performed in both the craniocaudal and mediolateral oblique views along with computer-aided detection (CAD). Synthesized 2D images are generated from the tomosynthesis. FINDINGS: There are scattered areas of fibroglandular density (ACR BI-RADS breast composition Category b). There are no significant masses, abnormal calcifications, or other abnormalities. Postsurgical changes are present in the upper outer quadrant of the right breast. MM/MM tomosynthesis screening BI IMPRESSION: No mammographic evidence of malignancy. ASSESSMENT: BI-RADS BI-RADS 2 - Benign Findings RECOMMENDATION: Routine annual mammography screening. 1 year F/U This examination should not preclude the clinical evaluation of a suspicious palpable abnormality. This patient's information was entered into a reminder system with a target due date for their next mammogram.
== END 2024-02-21 11:16 | disposition home or self-care (01) ==
LOC: HO.MAMMO 11:15
PROVIDERS: PCP Internal Medicine; Visit Provider Internal Medicine
DX: Z12.31 Encounter for screening mammogram for malignant neoplasm of breast (principal)
CPT/HCPCS: 77063; 77067

== ENCOUNTER → 2024-02-21 11:30 | Outpatient (BNV) | payer MEDICARE, OTHER, SELFPAY | PROVIDERS: PCP Internal Medicine; Visit Provider Radiology Diagnostic Radiology | DX: Z12.31 Encounter for screening mammogram for malignant neoplasm of breast (principal) | CPT/HCPCS: 77063; 77067 ==

== ENCOUNTER 2024-03-06 06:20 | Outpatient (REF) | payer MEDICARE, OTHER, SELFPAY ==
[2024-03-06 10:09] LABS: MANUAL DIFF FLAG NO
[2024-03-06 10:15] LABS: Basophils Absolute Auto 0.1 X10*3/uL (0.0-0.2); Basophils Percent Auto 0.9 % (0-2); Eosinophils Absolute Auto 0.3 X10*3/uL (0.0-0.4); Eosinophils Percent Auto 3.6 % (0-4); Hemoglobin 12.1 g/dl (12.0-16.0); Imm Gran Abs Auto 0.03 X10*3/uL (0.00-0.03); Imm Gran Pct Auto 0.4 % (0.0-0.4); Immature Retic Fraction 9.6 % (3.0-15.9); Lymphocytes Absolute Auto 2.3 X10*3/uL (1.2-4.9); Lymphocytes Percent Auto 28.3 % (20-40); Mean Corpuscular HGB Conc 32.7 g/dl (31.0-35.0); Mean Corpuscular Hemoglobin 29.8 pg (27.0-33.0); Mean Corpuscular Volume 91.1 fL (80.0-98.0); Mean Platelet Volume 10.3 fL (9.4-12.3); Monocytes Absolute Auto 0.8 X10*3/uL (0.1-1.2); Monocytes Percent Auto 9.3 % (2-11); Neutrophils Absolute Auto 4.6 x10*3/uL (2.0-8.3); Neutrophils Percent Auto 57.5 % (45-73); Platelet Count 209 X10*3/uL (160-400); Red Blood Count 4.06 X10*6/uL (4.20-5.50); Red Cell Distribution Width 14.2 % (11.0-16.0); Retic HGB Equivalent 33.3 pg (30.0-35.0); Reticulocyte Percent 1.4 % (0.5-1.8); Reticulocytes Absolute 0.058 X10*6/uL (0.026-0.095); White Blood Count 8.1 X10*3/uL (4.8-10.8)
[2024-03-06 10:48] LABS: Alanine Aminotransferase 18 U/L (0-31); Albumin Level 3.8 g/dL (3.5-5.0); Alkaline Phosphatase 99 U/L (39-117); Anion Gap 12 (12-20); Aspartate Amino Transferase 16 U/L (5-31); Bilirubin Total 0.4 mg/dL (0.0-1.0); Blood Urea Nitrogen 17 mg/dL (9-16); Calcium 9.9 mg/dL (8.4-10.2); Carbon Dioxide 27 mmol/L (22-29); Chloride 107 mmol/L (96-108); Estimated Glomerular Filt Rate > 60; Glucose Fasting 148 mg/dL (60-99); Iron 69 mcg/dL (30-160); Percent Iron Saturation 26 % (15-50); Potassium 4.2 mmol/L (3.3-5.1); Sodium 142 mmol/L (135-145); Total Iron Binding Capacity 264 mcg/dL (228-428); Total Protein 6.5 g/dL (6.5-8.0); Unsaturated Iron Binding 195 ug/dL
[2024-03-06 10:49] LABS: Estimated Average Glucose 166 mg/dL; Hemoglobin A1c % 7.4 % (<6.0)
== END 2024-03-06 06:21 | disposition home or self-care (01) ==
LOC: HO.HMGCLDS 06:20
PROVIDERS: PCP Internal Medicine; Visit Provider Internal Medicine
DX: I10 Essential (primary) hypertension (principal); E11.9 Type 2 diabetes mellitus without complications
CPT/HCPCS: 36415; 80053; 83036; 83540; 85025; 85045

== ENCOUNTER 2024-03-13 11:55 | Outpatient (AMB) | payer MEDICARE, OTHER, SELFPAY ==
--- NOTE | 2024-03-13 11:57 | A.OFFVIS_ITS ---
Intake Vital Signs 03/13/24 12:06 Height 5 ft 1 in Weight 147 lb 8 oz BMI 27.9 BP 132/72 Blood Pressure Location Rt brachial Position Sitting Pulse 66 Pulse Source Pulse Oximeter Pulse Oximetry (%) 96 Oxygen Delivery Method Room Air Intake Visit Reasons: SWV [id number] Allergies alendronate sodium [From FOSAMAX] Allergy (Intermediate, Verified 03/13/24 12:07) DIARRHEA ciprofloxacin [CIPROFLOXACIN] Allergy (Intermediate, Verified 03/13/24 12:07) HEADACHE,SOB hydrochlorothiazide [HYDROCHLOROTHIAZIDE] Allergy (Intermediate, Verified 03/13/24 12:07) HEADACHE,DIZZINESS, Gi upset levofloxacin [From LEVAQUIN] Allergy (Intermediate, Verified 03/13/24 12:07) HEADACHE,SOB metformin [METFORMIN] Allergy (Intermediate, Verified 03/13/24 12:07) DIARRHEA, Gi upset pravastatin [PRAVASTATIN] Allergy (Intermediate, Verified 03/13/24 12:07) HEADACHE,SOB, Gi upset simvastatin [SIMVASTATIN] Allergy (Intermediate, Verified 03/13/24 12:07) HEADACHE,SOB, Gi upset canagliflozin [From INVOKANA] Adverse Reaction (Intermediate, Verified 03/13/24 12:07) DIARRHEA dapagliflozin [From FARXIGA] Adverse Reaction (Intermediate, Verified 03/13/24 12:07) DIARRHEA dulaglutide [From Trulicity] Adverse Reaction (Intermediate, Verified 03/13/24 12:07) skin bumps mannitol [From Reclast] Adverse Reaction (Verified 03/13/24 12:07) bone pain water for injection,sterile [From Reclast] Adverse Reaction (Verified 03/13/24 12:07) bone pain zoledronic acid [From Reclast] Adverse Reaction (Verified 03/13/24 12:07) bone pain From PERCOCET Adverse Reaction (Mild, Uncoded 12/06/23 13:16) NAUSEA Medication List - Last Reconciled 03/13/24 by Corrine Spangler MD albuterol sulfate mg inhalation TID albuterol sulfate 90 mcg/actuation inhalation ascorbic acid (vitamin C) mg PO aspirin (Adult Low Dose Aspirin) 81 mg PO DAILY blood sugar diagnostic As directed blood sugar diagnostic One touch test strips use 1 strip to test blood sugar once daily diltiazem HCl CD 240 mg PO DAILY dulaglutide (Trulicity) 3 mg (0.5 mL) subcut QWEEK fluticasone propionate 220 mcg/actuation 2 puffs PO BID glipizide ER 10 mg PO BID lactobacillus combination no.9 (Adult 50 Plus Probiotic) PO lactobacillus combination no.9 (Adult 50 Plus Probiotic) 4,000 mmu cells PO DAILY losartan 100 mg PO DAILY mecobalamin (vitamin B12) 1,000 mcg sublingual DAILY methenamine hippurate 1 g PO BID metronidazole 0.75% 1 appl topical BID montelukast 10 mg PO DAILY omega-3 fatty acids-fish oil 360-1,200 mg (Fish Oil) 1 cap PO DAILY omeprazole 20 mg PO DAILY Ozempic (semaglutide) 2 mg (0.75 mL) subcut QWEEK NS polaprezinc (zinc carnosine) PO Do you need a note to return to daycare/school/sports/work: No HPI SWV G0439 HPI Details Initiated the conversation about Advanced Directives. Advanced Directives help? patients prepare for current and future decisions about their medical treatment? and place of care. Discussed with patient that it is a process where a patients? current condition and prognosis are reviewed, their wishes for information? regarding their illness are elicited, and likely medical dilemmas are presented? and options discussed. The form can be amended as needed, reviewed yearly and? make changes as needed IPPE/AWV ? year old presents? for her ? Annual? Wellness Visit, initial visit.? Medical / Social History Reviewed? Past Medical History ?Yes? . ? [place]? of Care / Care Team list updated ?Yes . ? Surgical/Hospitalization? History ?Yes . ? Current Medications? (including OTC and supplements) ?Yes . ? Family History ?Yes? . ? Tobacco? Control form ?Yes . ? AUDIT-C (Alcohol use) form? ?Yes . ? Illicit drug use in Social? History ?Yes . ? Current diagnosis of? depression? ?No ? Appropriate PHQ2/PHQ9? completed ?Yes . ? Data entered by ?Medical? Catalytic Converter Operator and reviewed by provider ? Fall Risk ? Fall? History? Have you had any falls with? injury in the past year? ?No . ? Have you had two or more? falls in the past year? ?No . ? Fall Risk Assessment: ?No? falls in the past year . ? HRA filled out by? the patient, reviewed by Provider and scanned. ? IPPE/AWV ? Balance? [place]? ?Yes . ? Tandem? walk ?Yes . ? Walk and? Turn ?Yes . ? Rise from? sit to stand ?Yes . ?Vision? Corrective? lens ?Yes ? Vision? screen ? Up-to-date, has an appointment [] for vision? screening and glaucoma screening ?Hearing? Whisper? test ?pass .? Initiated the conversation about Advanced Directives. Advanced Directives help? patients prepare for current and future decisions about their medical treatment? and place of care. Discussed with patient that it is a process where a patients? current condition and prognosis are reviewed, their wishes for info rmation? regarding their illness are elicited, and likely medical dilemmas are presented? and options discussed. The form can be amended as needed, reviewed yearly and? make changes as needed Written? Plan?Completed. See Patient? Documents. [facility] Medical History Annual physical exam Asthma Diabetes mellitus HTN (hypertension) Diastolic dysfunction Family history of total abdominal hysterectomy and bilateral salpingo- oophorectomy (JOANA-BSO) Surgical History Hx of bilateral cataract extraction History of bladder suspension procedure History of lumpectomy of right breast History of trigger finger History of urethrocutaneous fistula Hx of hysterectomy Hx of section Hx of appendectomy Family History Father CAD (coronary artery disease) Mother Parkinson disease Mental health disorder Brother Diabetes Melanoma Social History Housing: House Alcohol intake: never Patient Tobacco Use Status: Never used Tobacco e-Cigarette/Vaping Use: Never Used Second Hand Smoke Exposure: No service: No Current occupational status: retired 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 Cognitive needs: No Hearing needs: No Vision needs: Yes Questionnaire Medicare Wellness Checkup What is your age?: 78 or older What gender do you identify with?: female During the past 4 weeks, how much have you been bothered by emotional problems such as feeling anxious, depressed, irritable, sad or downhearted, and blue?: not at all During the past 4 weeks, has your physical & emotional health limited your social activities with family, friends, neighbors, or groups?: not at all During the past 4 weeks, how much bodily pain have you generally had?: moderate pain During the past 4 weeks, was someone available to help you if you needed & wanted help?: yes, some During the past 4 weeks, what was the hardest physical activity you could do for at least 2 minutes?: moderate Can you get to places out of walking distance without help? (For eg., can you travel alone on buses, taxis or drive your car?): Yes Can you go shopping for groceries or clothes without someone's help?: Yes Can you prepare your own meals?: Yes Can you do your housework without help?: Yes Because of any health problems, do you need the help of another person with your personal care needs such as eating, bathing, dressing or getting around the house?: No Can you handle your own money without help?: Yes During the past 4 weeks, how would you rate your health in general?: fair During the past 4 weeks how have things been going for you?: good & bad parts about equal Are you having difficulties driving your car?: no Do you always fasten your seat belt when you are in a car?: yes, usually During past 4 weeks, have you been bothered by the following: never: Sexual problems?, Trouble eating well?, Teeth or denture problems? and Problems using the telephone?, sometimes: Falling or dizzy when standing up and always: Tiredness or fatigue? Have you fallen 2 or more times in the past year?: No Are you afraid of falling?: No Are you a smoker?: no During the past 4 weeks, how many drinks of wine, beer, or other alcoholic beverages did you have?: no alcohol at all Do you exercise for about 20 minutes 3 or more times a week?: no, I usually do not exercise this much Have you been given information to help with the following?: no: Hazards in your house that might hurt you? and no: Keeping track of your medications? How often do you have trouble taking medicines the way you have been told to take them?: I always take medicine as prescribed How confident are you that you can control & manage most of your health problems?: somewhat confident What is your race?: White Mini Mental State Exam (MMSE) Orientation What is the (year) (season) (date) (day) (month)?: year, season, date, day and month Where are we (state) (county) (town or city) (hospital) (floor)?: state, county, town or city, hospital/clinic and floor Registration Name of 3 unrelated objects clearly and slowly, then ask patient to repeat all 3 of them. (1st repeat determines score. Make sure they can repeat all three): object 1, object 2 and object 3 Attention & Calculation (CHOOSE ONE) Spell WORLD backwards (DLROW): 5 letters Recall Ask patient to repeat the 3 items from question #3.: object 1, object 2 and object 3 Language Show patient a wristwatch & ask what it is. Repeat for pencil.: watch and pencil Ask the patient to repeat the phrase 'No ifs, ands, or buts' after you.: correct Ask the patient to 'take a piece of paper with their right hand' 'fold paper in half' 'place paper on floor': take paper in right hand, fold paper in half and place paper on floor Print the sentence 'CLOSE YOUR EYES' on a piece. If patient actually closes eyes then score.: followed written direction Give patient a blank piece of paper & ask to write a sentence. Score if it conta ins a noun & verb.: sentence contains subject and verb Score Score: 29 Activity of Daily Living Bathing - sponge bath, tub bath or shower: receives no assistance (gets in/out by self, if usual bathing means Dressing - getting clothes from closets & drawers, including inner/outer garments & fasteners.: gets clothes & gets completely dressed without help Toileting - going to the 'toilet room' for urine/bowel elimination & cleaning self/arranging clothes: goes to toilet room, cleans self, arranges clothes without help Transfer: moves in & out of bed and chair without help (may use support object) Continence: controls urination/bowel movements completely by self Feeding: feeds self without help Total Score: 0 Information obtained from: patient Using telephone: independent Traveling: independent Shopping: independent Preparing meals: independent Housework: independent Taking medicine: independent Managing money: independent PHQ-9 Over the last 2 weeks, how often have you been bothered by any of the following problems? 1. Little interest or pleasure in doing things: not at all 2. Feeling down, depressed, or hopeless: not at all 3. Trouble falling or staying asleep, or sleeping too much: nearly every day 4. Feeling tired or having little energy: several days 5. Poor appetite or overeating: not at all 6. Feeling bad about yourself - or that you are a failure or have let yourself or your family down: not at all 7. Trouble concentrating on things, such as reading the newspaper or watching television: not at all 8. Moving or speaking so slowly that other people could have noticed. Or the opposite - being so fidgety or restless that you have been moving around a lot more than usual: not at all 9. Thoughts that you would be better off or of hurting yourself in some way: not at all Total score: 4 Depression Screening Interpretation: Negative Depression Screening Done: Yes Source: Developed by Drs. Nishant Reyes, Bhavani Lee, Samy Voss and colleagues, with an educational kai from [employer]. Review of Systems Const All systems reviewed & are unremarkable except as noted in HPI and below Eyes Reports no additional complaints Card Reports no additional complaints Resp Reports no additional complaints GI Reports no additional complaints Reports no additional complaints Physical Exam Vital Signs: Last Vital Signs Pulse 66 03/13/24 12:06 BP 132/72 03/13/24 12:06 Pulse Ox 96 03/13/24 12:06 Oxygen Delivery Method Room Air 03/13/24 12:06 BMI result Body Mass Index 27.9 Const General: no acute distress HEENT Head: Yes normal to inspection Eyes General: appearance normal, both eyes and all related structures Neck Neck: Yes no lymphadenopathy and Yes supple Resp Effort & Inspection: normal respiratory effort Auscultation: clear to auscultation bilaterally Cardio Rhythm: regular rhythm Heart sounds: S1 normal heart sound present and S2 normal heart sound present GI Inspection: Yes normal to inspection Palpation (GI): Soft to palpation Percussion: Yes normal to percussion Extrem General: Yes no clubbing, cyanosis or edema Assessment & Plan Assessment & Plan (1) HTN (hypertension): Code(s): I10 - Essential (primary) hypertension Plan: cont meds (2) Diabetes mellitus: Comment: Intolerant to Trulicity, Jardiance, Farxiga metformin Code(s): E11.9 - Type 2 diabetes mellitus without complications Plan: A1C is 7.4, ADA diet, increase physical activity continue current medications discussed with the patient. Patient has been taking Trulicity but because of the shortage of a supply of Ozempic. Patient would like to continue Trelegy when available because of easier to use pen. (3) Osteoporosis: Comment: DEXA 01/2021 T score-3.0 unchanged from 11/2018 , Prolia since 2019, Tscore in femoral neck-3.9 03/24. Reclast infusion 05/24, side effect : body aches Code(s): M81.0 - Age-related osteoporosis without current pathological fracture Plan: Continue vitamin-D supplement and regular activity, repeat DEXA (4) Annual physical exam: Code(s): Z00.00 - Encounter for general adult medical examination without abnormal findings Plan: Well-balanced diet regular physical activity discussed with the patient. Orders: Orders Hemoglobin A1c 4 Months E11.9 - Type 2 diabetes mellitus without complications, I10 - Essential (primary) hypertension Comprehensive [place]. Panel Fast 4 Months E11.9 - Type 2 diabetes mellitus witho ut complications, I10 - Essential (primary) hypertension Lipid Panel 4 Months E11.9 - Type 2 diabetes mellitus without complications, I10 - Essential (primary) hypertension Microalbumin, Random (w Creat) 4 Months E11.9 - Type 2 diabetes mellitus without complications, I10 - Essential (primary) hypertension Vitamin B12 and Folate 4 Months E11.9 - Type 2 diabetes mellitus without complications, I10 - Essential (primary) hypertension Quality Reporting (2019) Depression/Bipolar (159/160/161/177) PHQ-9: Total score: 4 Coding Level of Care Code Medicare Subsequent (G0439) Diagnoses HTN (hypertension) I10 Diabetes mellitus E11.9 Osteoporosis M81.0 Annual physical exam Z00.00 CPT Codes Advance Care Planning - Advance Care Planning discussion: On file, no changes ([id number]) Advance Care Planning - Time spent: 1-15 minutes, on File ([id number]) Advance Care Planning Advance Care Planning discussion: On file, no changes Forms completed: Health Care Proxy Time spent: 1-15 minutes, on File
[2024-03-13 12:06] VITALS: BP 132/72; PULSE 66; O2SAT 96; BMI 27.9
== END 2024-03-13 16:03 | disposition home or self-care (01) ==
PROVIDERS: PCP Internal Medicine; Visit Provider Internal Medicine
DX: Z00.00 Encounter for general adult medical examination without abnormal findings (principal); I10 Essential (primary) hypertension; E11.9 Type 2 diabetes mellitus without complications; M81.0 Age-related osteoporosis without current pathological fracture
CPT/HCPCS: 1123F; G0439

== ENCOUNTER 2024-03-21 10:59 | Outpatient (AMB) | payer MEDICARE, OTHER, SELFPAY ==
--- NOTE | 2024-03-21 11:00 | AM.OFFWIN_ITS ---
Intake Vital Signs 03/21/24 11:01 Height 5 ft 1 in Weight 148 lb BMI 28.0 BP 140/62 H Blood Pressure Location Rt brachial Position Sitting Pulse 64 Pulse Source Pulse Oximeter Temp 98.2 F Temp Source Oral Pulse Oximetry (%) 98 Oxygen Delivery Method Room Air Intake Visit Reasons: EP- Low back pain, urinating a lot, UTI?? Intake Note: pt c/o lower back pain, urinary frequency. Started 5 days ago Patient Tobacco Use Status: Never used Tobacco Allergies alendronate sodium [From FOSAMAX] Allergy (Intermediate, Verified 03/21/24 11:15) DIARRHEA ciprofloxacin [CIPROFLOXACIN] Allergy (Intermediate, Verified 03/21/24 11:15) HEADACHE,SOB hydrochlorothiazide [HYDROCHLOROTHIAZIDE] Allergy (Intermediate, Verified 03/21/24 11:15) HEADACHE,DIZZINESS, Gi upset levofloxacin [From LEVAQUIN] Allergy (Intermediate, Verified 03/21/24 11:15) HEADACHE,SOB metformin [METFORMIN] Allergy (Intermediate, Verified 03/21/24 11:15) DIARRHEA, Gi upset pravastatin [PRAVASTATIN] Allergy (Intermediate, Verified 03/21/24 11:15) HEADACHE,SOB, Gi upset simvastatin [SIMVASTATIN] Allergy (Intermediate, Verified 03/21/24 11:15) HEADACHE,SOB, Gi upset canagliflozin [From INVOKANA] Adverse Reaction (Intermediate, Verified 03/21/24 11:15) DIARRHEA dapagliflozin [From FARXIGA] Adverse Reaction (Intermediate, Verified 03/21/24 11:15) DIARRHEA dulaglutide [From Trulicity] Adverse Reaction (Intermediate, Verified 03/21/24 11:15) skin bumps mannitol [From Reclast] Adverse Reaction (Verified 03/21/24 11:15) bone pain water for injection,sterile [From Reclast] Adverse Reaction (Verified 03/21/24 11:15) bone pain zoledronic acid [From Reclast] Adverse Reaction (Verified 03/21/24 11:15) bone pain From PERCOCET Adverse Reaction (Mild, Uncoded 03/21/24 11:15) NAUSEA Do you need a note to return to daycare/school/sports/work: No HPI HPI Comments History of Present Illness Details 83 y/o female patient who presents to [facility] for rehabilitation in clinic with c/o Urinary symptoms x 5 days. Reports urgency and frequency associated with Lower back pain. Denies fevers, chills, nausea or vomiting. She has h/o recurrent UTIs and she takes Methenamine BID for prevention. She had Colporrhaphy/Colposuspension with Enterocele repair surgery by [facility] back in 09/2012. [facility] Medical History Annual physical exam Asthma Diabetes mellitus HTN (hypertension) Diastolic dysfunction Family history of total abdominal hysterectomy and bilateral salpingo- oophorectomy (JOANA-BSO) Surgical History Hx of bilateral cataract extraction History of bladder suspension procedure History of lumpectomy of right breast History of trigger finger History of urethrocutaneous fistula Hx of hysterectomy Hx of section Hx of appendectomy Family History Father CAD (coronary artery disease) Mother Parkinson disease Mental health disorder Brother Diabetes Melanoma Social History Housing: House Alcohol intake: never Patient Tobacco Use Status: Never used Tobacco e-Cigarette/Vaping Use: Never Used Second Hand Smoke Exposure: No service: No Current occupational status: retired 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 General: Yes no CVA tenderness Back/Spine/Pelvis Back: no CVA tenderness and back tenderness Neuro General: patient oriented x3, gait normal and moves all extremities Psych Speech and movement: Normal speech and movement present Results AMB Urinalysis, Automated UA Leukoctes 500 Cuong/uL Last Edit by Abdi Patricia CMA on 03/21/24 11:22 UA Nitrite Positive Last Edit by Abdi Patricia CMA on 03/21/24 11:22 UA Urobilinogen 0.2 mg/dL Last Edit by Abdi Patricia CMA on 03/21/24 11:22 UA Protein 15 mg/dL Last Edit by Abdi Patricia CMA on 03/21/24 11:22 UA pH 6.0 Last Edit by Abdi Patricia CMA on 03/21/24 11:22 UA Blood 10 Chago/uL Last Edit by Abdi Patricia, SABINA on 03/21/24 11:22 UA Specific Ward 1.020 Last Edit by Abdi Patricia CMA on 03/21/24 11:22 UA Ketone Negative Last Edit by Abdi Patricia CMA on 03/21/24 11:22 UA Bilirubin 0 mg/dL Last Edit by Abdi Patricia CMA on 03/21/24 11:22 UA Glucose 0 mg/dL Last Edit by Abdi Patricia CMA on 03/21/24 11:22 Results Reviewed Results Reviewed: Laboratory Last Values Urine pH (Auto) 6.0 03/21/24 11:21 Specific Ward (Auto) 1.020 03/21/24 11:21 Urine Protein (Auto) 15 mg/dL 03/21/24 11:21 Glucose (UA)(Auto) 0 mg/dL 03/21/24 11:21 Urine Ketones (Auto) Negative 03/21/24 11:21 Urine Blood (Auto) 10 Chago/uL 03/21/24 11:21 Urine Nitrite (Auto) Positive 03/21/24 11:21 Urine Bilirubin (Auto) 0 mg/dL 03/21/24 11:21 Urine Urobilinogen (Auto) 0.2 mg/dL 03/21/24 11:21 Leukocyte Esterase (Auto) 500 Cuong/uL 03/21/24 11:21 Assessment & Plan Assessment & Plan (1) Cystitis: Code(s): N30.90 - Cystitis, unspecified without hematuria Plan: Please f/u with [facility] Ordered Cefuroxime Pt unable to provide enough urine for culture Hydrate with enough water Report any Fevers, chills, nausea or vomiting. Orders: Orders AMB Urinalysis Automated Today Z13.9 - Encounter for screening, unspecified Medications: New cefuroxime axetil 500 mg PO BID 7 days 14 tabs 0RF N30.90 - Cystitis, unspecified without hematuria Coding Level of Care Code Est Pt Level 3 (43752) Diagnoses Cystitis N30.90 Time Spent (min) 15
[2024-03-21 11:01] VITALS: BP 140/62; PULSE 64; TEMP 36.8; O2SAT 98; BMI 28.0
== END 2024-03-21 12:10 | disposition home or self-care (01) ==
PROVIDERS: PCP Internal Medicine; Visit Provider Nurse Practitioner Family
DX: N30.90 Cystitis, unspecified without hematuria (principal); Z13.9 Encounter for screening, unspecified
CPT/HCPCS: 81003; 99213

== ENCOUNTER 2024-04-25 13:35 | Outpatient (AMB) | payer MEDICARE, OTHER, SELFPAY ==
--- NOTE | 2024-04-25 13:45 | HO.NEPHOV ---
Vital Signs 04/25/24 13:46 Height 5 ft 1 in Weight 146 lb BMI 27.6 BP 142/56 H Blood Pressure Location Rt brachial Position Sitting Pulse 85 Pulse Source Pulse Oximeter Pulse Oximetry (%) 97 Oxygen Delivery Method Room Air Intake Visit Reasons: Self referral/ Pain on the Kidneys area/ Conf Strategic Sourcing Consultant Required: No Accompanied by: Self / Same As Patient Allergies alendronate sodium [From FOSAMAX] Allergy (Intermediate, Verified 04/25/24 13:50) DIARRHEA ciprofloxacin [CIPROFLOXACIN] Allergy (Intermediate, Verified 04/25/24 13:50) HEADACHE,SOB hydrochlorothiazide [HYDROCHLOROTHIAZIDE] Allergy (Intermediate, Verified 04/25/24 13:50) HEADACHE,DIZZINESS, Gi upset levofloxacin [From LEVAQUIN] Allergy (Intermediate, Verified 04/25/24 13:50) HEADACHE,SOB metformin [METFORMIN] Allergy (Intermediate, Verified 04/25/24 13:50) DIARRHEA, Gi upset pravastatin [PRAVASTATIN] Allergy (Intermediate, Verified 04/25/24 13:50) HEADACHE,SOB, Gi upset simvastatin [SIMVASTATIN] Allergy (Intermediate, Verified 04/25/24 13:50) HEADACHE,SOB, Gi upset canagliflozin [From INVOKANA] Adverse Reaction (Intermediate, Verified 04/25/24 13:50) DIARRHEA dapagliflozin [From FARXIGA] Adverse Reaction (Intermediate, Verified 04/25/24 13:50) DIARRHEA dulaglutide [From Trulicity] Adverse Reaction (Intermediate, Verified 04/25/24 13:50) skin bumps mannitol [From Reclast] Adverse Reaction (Verified 04/25/24 13:50) bone pain water for injection,sterile [From Reclast] Adverse Reaction (Verified 04/25/24 13:50) bone pain zoledronic acid [From Reclast] Adverse Reaction (Verified 04/25/24 13:50) bone pain From PERCOCET Adverse Reaction (Mild, Uncoded 03/21/24 11:15) NAUSEA Medication List - Last Reconciled 04/25/24 by Cliff Saravia MD acetaminophen (Tylenol) 325 mg PO QID PRN albuterol sulfate 90 mcg/actuation inhalation albuterol sulfate mg inhalation BID ascorbic acid (vitamin C) mg PO blood sugar diagnostic As directed blood sugar diagnostic One touch test strips use 1 strip to test blood sugar once daily cholecalciferol (vitamin D3) 25 mcg PO DAILY diltiazem HCl CD 240 mg PO DAILY diphenhydramine HCl (NightTime Sleep Aid (diphenhydramine)) 25 mg PO BEDTIME PRN glipizide ER 10 mg PO BID glycerin-min oil-polycarbophil (Replens vaginal gel) ea vaginal lactobacillus combination no.9 (Adult 50 Plus Probiotic) PO DAILY losartan 100 mg PO DAILY magnesium 250 mg PO DAILY mecobalamin (vitamin B12) 1,000 mcg sublingual DAILY methenamine hippurate 1 g PO BID metronidazole 0.75% 1 appl topical BID omega-3 fatty acids-fish oil 360-1,200 mg (Fish Oil) 1 cap PO DAILY omeprazole 20 mg PO DAILY Ozempic (semaglutide) 2 mg (0.75 mL) subcut QWEEK NS polaprezinc (zinc carnosine) PO HPI Comments Details: Genie is a pleasant 82-year-old man with a history of normal renal function. She had bladder surgery in the past. She has had few recent urine tract infections and she has self-referred for renal evaluation She complains of right flank pain. No dysuria urgency increased frequency. No hematuria. [facility]LY [facility] Medical History Annual physical exam Asthma Diabetes mellitus HTN (hypertension) Diastolic dysfunction Family history of total abdominal hysterectomy and bilateral salpingo-oophorectomy (JOANA-BSO) Surgical History Hx of bilateral cataract extraction History of bladder suspension procedure History of lumpectomy of right breast History of trigger finger History of urethrocutaneous fistula Hx of hysterectomy Hx of section Hx of appendectomy Family History Father CAD (coronary artery disease) Mother Parkinson disease Mental health disorder Brother Diabetes Melanoma Social History Housing: House Alcohol intake: never Patient Tobacco Use Status: Never used Tobacco e-Cigarette/Vaping Use: Never Used Second Hand Smoke Exposure: No service: No Current occupational status: retired 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 Cognitive needs: No Hearing needs: No Vision needs: Yes Review of Systems Const Denies fever(s) and Denies weight loss Card Denies chest pain Resp Denies cough and Denies hemoptysis GI Denies abdominal pain, Denies diarrhea and Denies nausea Musc Denies back pain Neuro Denies focal weakness Physical Exam Vital Signs: Last Vital Signs Pulse 85 04/25/24 13:46 BP 142/56 H 04/25/24 13:46 Pulse Ox 97 04/25/24 13:46 Oxygen Delivery Method Room Air 04/25/24 13:46 BMI result Body Mass Index 27.6 Results Reviewed Nephrology Results: Hgb 12.1 g/dl (12.0-16.0) 03/06/24 WBC 8.1 X10*3/uL (4.8-10.8) 03/06/24 Plt Count 209 X10*3/uL (160-400) 03/06/24 Sodium 142 mmol/L (135-145) 03/06/24 Potassium 4.2 mmol/L (3.3-5.1) 03/06/24 Chloride 107 mmol/L (96-108) 03/06/24 Carbon Dioxide 27 mmol/L (22-29) 03/06/24 BUN 17 mg/dL (9-16) H 03/06/24 Creatinine 0.70 mg/dL (0.5-1.4) 03/06/24 Calcium 9.9 mg/dL (8.4-10.2) 03/06/24 Urine Creatinine 108.60 mg/dL 11/30/23 Assessment & Plan Assessment & Plan (1) HTN (hypertension): Code(s): I10 - Essential (primary) hypertension Category: Medical (2) Diabetes mellitus: Comment: Intolerant to Trulicity, Jardiance, Farxiga metformin Code(s): E11.9 - Type 2 diabetes mellitus without complications Category: Medical Plan Elderly woman with a history of hypertension diabetes mellitus with recurrent UTIs and right flank pain. Plan check urine for culture sensitivity Renal ultrasonogram Encouraged to stand low-sodium diet Increase p.o. fluid intake. Further recommendation will be based on the outcome of the above investigation Orders: Orders UA and rflx microscopic Today E11.9 - Type 2 diabetes mellitus without complications, I10 - Essential (primary) hypertension Urine Culture Today E11.9 - Type 2 diabetes mellitus without complications, I10 - Essential (primary) hypertension US renal BI Today E11.9 - Type 2 diabetes mellitus without complications, I10 - Essential (primary) hypertension Coding Level of Care Code New Pt Level 4 (86489) Diagnoses HTN (hypertension) I10 Diabetes mellitus E11.9
[2024-04-25 13:46] VITALS: BP 142/56; PULSE 85; O2SAT 97; BMI 27.6
== END 2024-04-25 14:09 | disposition home or self-care (01) ==
PROVIDERS: PCP Internal Medicine; Visit Provider Internal Medicine Hypertension Specialist
DX: I10 Essential (primary) hypertension (principal); E11.9 Type 2 diabetes mellitus without complications
CPT/HCPCS: 99204

== ENCOUNTER → 2024-04-25 13:35 | Outpatient (BNVA) | payer MEDICARE, OTHER, SELFPAY | PROVIDERS: PCP Internal Medicine; Visit Provider Internal Medicine Hypertension Specialist | DX: I10 Essential (primary) hypertension (principal); E11.9 Type 2 diabetes mellitus without complications | CPT/HCPCS: 99202 ==

== ENCOUNTER 2024-04-26 08:43 | Outpatient (REF) | payer MEDICARE, OTHER, SELFPAY ==
[2024-04-26 13:44] LABS: Appearance Urine Turbid; Color Urine Yellow; Glucose Urine UA 100 mg/dL (Negative); Leukocyte Esterase Urine Moderate (2+) (Negative); Nitrite Urine Positive (Negative); Specific Gravity - Urine 1.025 (1.005-1.025); UMIC TRIGGER UA YES; Urine Blood Trace (Negative); Urine Ketones Negative (Negative); Urine Protein Trace mg/dL (Neg-Trace)
[2024-04-26 13:50] LABS: Bacteria Urine 4+ (None Seen); Hyaline Casts Urine 0-2 /LPF (0-2); Squamous Epithelial Cell Urine >20 /HPF (0-2); WBC Urine >50 /HPF (0-5)
== END 2024-04-26 08:44 | disposition home or self-care (01) ==
LOC: HO.HMGCLDS 08:43
PROVIDERS: PCP Internal Medicine; Visit Provider Internal Medicine Hypertension Specialist
DX: I10 Essential (primary) hypertension (principal); E11.9 Type 2 diabetes mellitus without complications
CPT/HCPCS: 81001; 87086; 87088; 87186

== ENCOUNTER 2024-05-03 11:16 | Outpatient (REF) | payer MEDICARE, OTHER, SELFPAY ==
--- NOTE | ~2024-05-03 | US_ITS ---
EXAMINATION: US RETROPERITONEAL LIMITED (RENAL ONLY) CLINICAL INFORMATION: Essential (primary) hypertension. Right flank pain. COMPARISON: CT abdomen and pelvis 11/16/2022. MRI abdomen 09/29/2017. TECHNIQUE: Real-time imaging of the kidneys. FINDINGS: RIGHT KIDNEY: 10.9 x 4.4 x 5.2 cm (SAG x AP x TRV). The kidney is normal in size and echogenicity. No renal calculi or hydronephrosis. Lower pole caliectasis. Lower pole cyst measures 1.9 x 1.7 x 1.8 cm. Possible cortical scarring at the midpole. LEFT KIDNEY: 10.5 x 4.8 x 4.0 cm (SAG x AP x TRV). The kidney is normal in size, contour, and echogenicity. Renal cortical thickness is normal. No renal calculi or hydronephrosis. Lower pole cyst measures 3.2 x 2.0 x 2.6 cm. Echogenic mass in the midpole measures 1.6 x 1.1 x 1.4 cm. No internal color Doppler flow. 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 This lesion previously measured 0.9 x 0.8 cm on MRI abdomen September 29, 2017. Bilateral renal cysts require no further routine imaging follow-up. Possible cortical scarring mid pole right kidney. Electronically signed by: Aime Wan MD 05/12/2024 01:35 PM EDT
== END 2024-05-03 11:17 | disposition home or self-care (01) ==
LOC: HO.HMGCX 11:16
PROVIDERS: PCP Internal Medicine; Visit Provider Internal Medicine Hypertension Specialist
DX: I10 Essential (primary) hypertension (principal); E11.9 Type 2 diabetes mellitus without complications
CPT/HCPCS: 76775

== ENCOUNTER 2024-05-12 09:12 | Emergency (ER) | payer MEDICARE, OTHER, SELFPAY ==
--- NOTE | ~2024-05-12 | XR_ITS ---
EXAMINATION: XR THORACIC SPINE XR LUMBAR SPINE CLINICAL INFORMATION: Midline thoracic and lumbar spine tenderness. Lower back pain. Hip pain. COMPARISON: CT abdomen and pelvis from 11/16/2022. TECHNIQUE: 2 views of the thoracic spine (AP and lateral). 3 views of the lumbar spine (AP, lateral, and coned lumbosacral junction views). FINDINGS: Thoracic Spine: The thoracic spine is visualized from C7-T12. Moderate right convex curvature of the thoracic spine. No evidence of acute fracture or subluxation of the thoracic spine. Otherwise, the vertebral bodies and posterior elements remain in anatomic alignment. The vertebral body heights appear maintained. Moderate multilevel degenerative disc disease. The visualized portions of the mediastinum and bilateral hemithoraces are normal in appearance. No evidence of acute traumatic injury to the visualized ribs or clavicles. Aortic calcifications. Lumbosacral Spine: No evidence of acute fracture or subluxation of the lumbosacral spine. Moderate left convex curvature of the lumbar spine. The vertebral bodies and posterior elements are in anatomic alignment. The vertebral body heights are maintained. Advanced degenerative disc disease from L3-L5. Moderate degenerative disc disease at all additional levels. The sacral arcuate lines are uninterrupted. The sacroiliac joints, pubic symphysis, and hips appear in normal alignment on the limited views. Nonobstructive bowel gas pattern is demonstrated in the visualized portions of the abdomen. XR/XR thoracic spine 3V IMPRESSION: 1. No evidence of acute fracture or traumatic subluxation of the thoracolumbar spine. 2. 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 Moderate right convex curvature of the thoracic spine. Electronically signed by: Luis Wolfe DO 05/12/2024 12:54 PM EDT
--- NOTE | ~2024-05-12 | XR_ITS ---
EXAMINATION: XR THORACIC SPINE XR LUMBAR SPINE CLINICAL INFORMATION: Midline thoracic and lumbar spine tenderness. Lower back pain. Hip pain. COMPARISON: CT abdomen and pelvis from 11/16/2022. TECHNIQUE: 2 views of the thoracic spine (AP and lateral). 3 views of the lumbar spine (AP, lateral, and coned lumbosacral junction views). FINDINGS: Thoracic Spine: The thoracic spine is visualized from C7-T12. Moderate right convex curvature of the thoracic spine. No evidence of acute fracture or subluxation of the thoracic spine. Otherwise, the vertebral bodies and posterior elements remain in anatomic alignment. The vertebral body heights appear maintained. Moderate multilevel degenerative disc disease. The visualized portions of the mediastinum and bilateral hemithoraces are normal in appearance. No evidence of acute traumatic injury to the visualized ribs or clavicles. Aortic calcifications. Lumbosacral Spine: No evidence of acute fracture or subluxation of the lumbosacral spine. Moderate left convex curvature of the lumbar spine. The vertebral bodies and posterior elements are in anatomic alignment. The vertebral body heights are maintained. Advanced degenerative disc disease from L3-L5. Moderate degenerative disc disease at all additional levels. The sacral arcuate lines are uninterrupted. The sacroiliac joints, pubic symphysis, and hips appear in normal alignment on the limited views. Nonobstructive bowel gas pattern is demonstrated in the visualized portions of the abdomen. XR/XR lumbar spine 2-3V IMPRESSION: 1. No evidence of acute fracture or traumatic subluxation of the thoracolumbar spine. 2. 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 Moderate right convex curvature of the thoracic spine. Electronically signed by: Luis Wolfe DO 05/12/2024 12:54 PM EDT
[2024-05-12 09:26] VITALS: BP 168/51; PULSE 69; RESP 18; TEMP 36.6; O2SAT 98; BMI 26.8
--- NOTE | 2024-05-12 09:53 | ED.BACK ---
HPI - Back Pain/Injury General Chief Complaint: Back Pain/Injury Stated Complaint: Sciatic pain Time Seen by Provider: 05/12/24 09:29 Source: patient and family () Mode of arrival: ambulatory Limitations: no limitations History of Present Illness ED Provider: SHANTELL ELLIS PA-C HPI Narrative: 83 year old female with pmhx significant for HTN, DM, osteoporosis, anemia, asthma presents to the ED today for evaluation of right lumbar pain x1 month. Reports history of similar in the past with diagnosis of sciatica. Reports recent trip while going up the stairs 1 week ago (after her back pain started). Denies head strike or LOC. Not on anticoagulation. States she may have tweaked her back further during this trip. She is taking Tylenol and Aleve at home with minimal relief. Denies fever, chills, dysuria, hematuria. No hx of spinal surgery. No hx of IVDU. Denies numbness/tingling/weakness of the LEs, bowel/ bladder incontinence or retention, saddle anesthesia. Related Data Home Medications ?Medication ?Instructions ?Recorded ?Confirmed ascorbic acid (vitamin C) 500 mg mg PO 05/28/20 04/25/24 capsule mecobalamin (vitamin B12) 1,000 1,000 mcg sublingual DAILY 05/28/20 04/25/24 mcg disintegrating tablet,sublingual methenamine hippurate 1 gram tablet 1 g PO BID 05/28/20 04/25/24 omega-3 fatty acids-fish oil 360 1 cap PO DAILY 05/28/20 04/25/24 mg-1,200 mg capsule (Fish Oil) blood sugar diagnostic #10 ea 07/15/20 03/13/24 albuterol sulfate 90 mcg/actuation inhalation 01/08/21 04/25/24 aerosol inhaler polaprezinc (zinc carnosine) PO 08/28/21 04/25/24 metronidazole 0.75 % topical cream 1 appl topical BID 12/22/22 04/25/24 diphenhydramine HCl 25 mg capsule 25 mg PO BEDTIME PRN 03/21/24 04/25/24 (NightTime Sleep Aid (diphenhydramine)) acetaminophen 325 mg capsule 325 mg PO QID PRN 04/25/24 04/25/24 (Tylenol) albuterol sulfate 0.63 mg/3 mL mg inhalation BID 04/25/24 04/25/24 solution for nebulization cholecalciferol (vitamin D3) 25 25 mcg PO DAILY 04/25/24 04/25/24 mcg (1,000 unit) capsule glycerin-mineral oil-polycarbophil ea vaginal 04/25/24 04/25/24 vaginal gel (Replens vaginal gel) lactobacillus combination no.9 PO DAILY 04/25/24 04/25/24 [Adult 50 Plus Probiotic] magnesium 250 mg tablet 250 mg PO DAILY 04/25/24 04/25/24 Previous Rx's ?Medication ?Instructions ?Recorded blood sugar diagnostic #100 ea 09/28/23 omeprazole 20 mg capsule,delayed 20 mg PO DAILY #90 caps 10/31/23 release losartan 100 mg tablet 100 mg PO DAILY #90 tabs 11/21/23 glipizide 10 mg tablet, extended 10 mg PO BID #180 tabs 01/18/24 release 24 hr diltiazem HCl 240 mg 240 mg PO DAILY #90 caps 02/02/24 capsule,extended release 24 hr Ozempic 2 mg/dose (8 mg/3 mL) 2 mg (0.75 mL) subcut QWEEK #9 mL 04/11/24 subcutaneous pen injector (semaglutide) nitrofurantoin macrocrystal 100 mg 100 mg PO BID #14 caps 05/01/24 capsule baclofen 5 mg tablet 5 mg PO BID #6 tabs 05/12/24 lidocaine 5 % topical patch 1 patch topical DAILY #15 ea 05/12/24 (Lidoderm) Allergies Allergy/AdvReac Type Severity Reaction Status Date / Time alendronate sodium Allergy Intermediate DIARRHEA Verified 05/12/24 09:26 [From FOSAMAX] ciprofloxacin [CIPROFLOXACIN] Allergy Intermediate HEADACHE,SO Verified 05/12/24 09:26 B hydrochlorothiazide Allergy Intermediate HEADACHE,DIZZINESS, Verified 05/12/24 09:26 [HYDROCHLOROTHIAZIDE] Gi upset levofloxacin [From LEVAQUIN] Allergy Intermediate HEADACHE,SO Verified 05/12/24 09:26 B metformin [METFORMIN] Allergy Intermediate DIARRHEA, Verified 05/12/24 09:26 Gi upset pravastatin [PRAVASTATIN] Allergy Intermediate HEADACHE,SOB, Verified 05/12/24 09:26 Gi upset simvastatin [SIMVASTATIN] Allergy Intermediate HEADACHE,SOB, Verified 05/12/24 09:26 Gi upset canagliflozin [From INVOKANA] AdvReac Intermediate DIARRHEA Verified 05/12/24 09:26 dapagliflozin [From FARXIGA] AdvReac Intermediate DIARRHEA Verified 05/12/24 09:26 dulaglutide [From Trulicity] AdvReac Intermediate skin bumps Verified 05/12/24 09:26 mannitol [From Reclast] AdvReac bone pain Verified 05/12/24 09:26 water for injection,sterile AdvReac bone pain Verified 05/12/24 09:26 [From Reclast] zoledronic acid AdvReac bone pain Verified 05/12/24 09:26 [From Reclast] From PERCOCET AdvReac Mild NAUSEA Uncoded 03/21/24 11:15 Review of Systems Review of Systems: Constitutional: No fever, chills, fatigue, night sweats, weight changes ENT/Mouth: No ear pain, hearing loss, nasal congestion, sinus pain, rhinorrhea, sore throat Eyes: No eye pain, swelling, redness, vision changes, discharge Cardio: No chest pain, palpitations, [place], orthopnea, peripheral edema Pulm: No SOB, cough, sputum, wheezing, dyspnea, hemoptysis GI: No nausea, vomiting, hematemesis, abdominal pain, diarrhea, constipation, hematochezia, melena : No irregular bleeding, dysuria, frequency, urgency, hesitancy, hematuria, flank pain, urinary flow changes, urinary incontinence or retention MSK: +back pain, No neck pain, joint pain, myalgias Skin: No lesions, rashes Neuro: No weakness, numbness, paresthesias, LOC, dizziness, headache Psych: No anxiety/panic, depression, SI/HI, AH/VH All other systems reviewed and are negative. [facility] Past Medical History Attestation statement: The following information was validated with the patient. Source: old records reviewed and nursing notes reviewed Medical History Annual physical exam Asthma Diabetes mellitus HTN (hypertension) Diastolic dysfunction Family history of total abdominal hysterectomy and bilateral salpingo-oophorectomy (JOANA-BSO) Surgical History Hx of bilateral cataract extraction History of bladder suspension procedure History of lumpectomy of right breast History of trigger finger History of urethrocutaneous fistula Hx of hysterectomy Hx of section Hx of appendectomy Family History Family History Father CAD (coronary artery disease) Mother Parkinson disease Mental health disorder Brother Diabetes Melanoma Social History Social History Housing: House Alcohol intake: never Patient Tobacco Use Status: Never used Tobacco e-Cigarette/Vaping Use: Never Used Second Hand Smoke Exposure: No Advance Directives: Yes Advance Directives Information Provided: Yes Advance Directives on File: No Do you have a plan to hurt others: No Plan service: No Current occupational status: retired 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 Skin: Warm, dry, intact. No rashes or lesions. Head: Normocephalic, atraumatic. EENT: Hearing is intact b/l. Conjunctiva clear. PERRLA. EOM intact. Moist mucous membranes.? Neck: Supple without LAD Cardiac: Chest wall symmetric. RRR Lungs: Normal respiratory effort without accessory muscle use. CTA bilaterally. Abdomen: Soft, non-tender, non-distended. No rebound tenderness or guarding. Positive BS x4. No CVAT bilaterally. Back: No midline spinous or paraspinal tenderness. No step off deformity. Ext: Upper and lower extremities atraumatic, without tenderness, deformity, swelling or erythema. Full ROM throughout. Neuro: AOx3. Normal speech. Strength 5/5 intact throughout. No saddle anesthesia. Sensation intact to light touch. NV intact distally. Reflexes 2+ bilaterally. Ambulating with steady gait. Psych: Appropriate mood and affect. Responds appropriately to questions. Course Course Course Narrative: 1339 -- urine negative for infection, XR thoracic and lumbar spine without evidence of fracture. medicated with baclofen and lido patch with improvement. likely sciatica vs lumbar strain. pain control sent to pharmacy. Patient has remained stable throughout ED visit today. Discussed worrisome signs and symptoms and when to return to the ED. All questions answered at this time. Patient is agreeable with disposition and stable for discharge. Medications Administered Discontinued Medications Generic Name Dose Route Start Last Admin Trade Name Freq PRN Reason Stop Dose Admin Baclofen 10 mg 05/12/24 10:02 05/12/24 10:21 Baclofen 10 Mg Tablet PO 05/12/24 10:03 10 mg ONCE ONE Administration Lidocaine 1 patch 05/12/24 10:02 05/12/24 10:21 Lidocaine 4 % Patch Adh..Patch TRANSDERMA 05/12/24 10:03 1 patch ONCE ONE Administration Protocol Medical Decision Making Medical Decision Making [facility] Narrative: 83 year old female with pmhx significant for HTN, DM, osteoporosis, anemia, asthma presents to the ED today for evaluation of right lumbar pain x1 month. Patient hypertensive to 168/51, vitals otherwise wnl. She is nontoxic appearing and in NAD. On exam there is midline spinous tenderness over thoracic spine, specifically T5/T6, doubt noted step-off deformity. There is also right lumbar paraspinal muscle tenderness to palpation without palpable mass or fluctuance. Sensation and strength intact throughout. Ambulating with steady gait. Neurovascularly intact distally. No CVAT bilaterally. Differential diagnosis includes contusion, msk sprain/ strain, fracture, compression fracture. Lower suspicion for UTI. Unlikely pyelo, hydro, renal colic, neprholithiasis. Presentation not consistent with cauda equina, epidural abscess, cord compression or Guillain-[place]. Plan for imaging, pain control, and re-evaluation. Differential Diagnosis Differential Diagnoses: The differential diagnosis associated with the presentation includes as above. Admission/Observation Not indicated. Lab Data [facility] Lab Attestation statement: I reviewed the patient's lab results. as above. Labs: Lab Results 05/12/24 Range/Units 12:21 Urine Color Yellow Urine Appearance Clear Urine pH 5.5 (5.0-9.0) Ur Specific [place] 1.010 (1.005-1.025) Urine Protein Negative (Neg-Trace) mg/dL Urine Glucose (UA) Negative (Negative) mg/dL Urine Ketones Negative (Negative) mg/dL Urine Blood Negative (Negative) Urine Nitrite Negative (Negative) Ur Leukocyte Esterase Trace H (Negative) Urine RBC 0-2 (0-2) /HPF Urine WBC 0-5 (0-5) /HPF Ur Squamous Epith Cells 6-10 (0-2) /HPF Urine Bacteria None Seen (None Seen) Hyaline Casts 0-2 (0-2) /LPF Independent Interpretation I performed an independent interpretation of an: Plain X-Ray Interpretation: XR lumbar spine without acute fracture, agree with radiologist's interpretation. XR thoracic spine without acute fracture, agree with radiologist's interpretation. Radiology Impression Discussion of test interpretation with radiology: I have reviewed the radiologist's reading. Radiologist Impression: EXAMINATION: XR THORACIC SPINE XR LUMBAR SPINE CLINICAL INFORMATION: Midline thoracic and lumbar spine tenderness. Lower back pain. Hip pain. COMPARISON: CT abdomen and pelvis from 11/16/2022. TECHNIQUE: 2 views of the thoracic spine (AP and lateral). 3 views of the lumbar spine (AP, lateral, and coned lumbosacral junction views). FINDINGS: Thoracic Spine: The thoracic spine is visualized from C7-T12. Moderate right convex curvature of the thoracic spine. No evidence of acute fracture or subluxation of the thoracic spine. Otherwise, the vertebral bodies and posterior elements remain in anatomic alignment. The vertebral body heights appear maintained. Moderate multilevel degenerative disc disease. The visualized portions of the mediastinum and bilateral hemithoraces are normal in appearance. No evidence of acute traumatic injury to the visualized ribs or clavicles. Aortic calcifications. Lumbosacral Spine: No evidence of acute fracture or subluxation of the lumbosacral spine. Moderate left convex curvature of the lumbar spine. The vertebral bodies and posterior elements are in anatomic alignment. The vertebral body heights are maintained. Advanced degenerative disc disease from L3-L5. Moderate degenerative disc disease at all additional levels. The sacral arcuate lines are uninterrupted. The sacroiliac joints, pubic symphysis, and hips appear in normal alignment on the limited views. Nonobstructive bowel gas pattern is demonstrated in the visualized portions of the abdomen. XR/XR lumbar spine 2-3V IMPRESSION: 1. No evidence of acute fracture or traumatic subluxation of the thoracolumbar spine. 2. 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 Moderate right convex curvature of the thoracic spine. Independent Historian Clinical information obtained from an independent historian. History obtained from or confirmed by: Spouse () External Record Review External record reviewed: Inpatient record Prescription Management I considered prescription management with: Pain Medication Chronic Conditions Patient?s care impacted by: Other (osteoporosis) Social Determinants Patient?s care significantly limited by Social Determinants of Health including: Other Social Determinant of Health Critical Care Time Critical Care Time Critical Care Time: No Discharge Plan Discharge Clinical Impression: Lumbar spine strain, Sciatica Patient Disposition: Home, Self-Care Additional Instructions: You were evaluated in the Emergency Department today for your back pain.? Your evaluation did not show signs of medical conditions requiring emergent intervention at this time. Avoid bending, lifting, or twisting. Use ice several times per day for 20 minutes at a time for the next 48 hours and then change to heat. We recommend you take 600mg ibuprofen every 6 hours or tylenol 650mg every 6 hours as needed for pain. If needed, you can alternate these medications so that you take one medication every 3 hours. For example, at noon take ibuprofen, then at 3pm take tylenol, then at 6pm take ibuprofen. Baclofen is a muscle relaxer. Take this at night as it makes you drowsy. Do not drive, drink alcohol, or operate machinery while taking it. Lidoderm patches are numbing patches. Apply to painful areas. Please schedule an appointment for follow-up with your primary care provider this week for further evaluation of your symptoms. Continue following with your funeral planner regarding ultrasound/ further work up. Return to the Emergency Department if you experience worsening back pain, difficulty walking, fevers, numbness, tingling, incontinence, or any other concerning symptoms. In the case of an emergency call 911. Prescriptions: New baclofen 5 mg tablet 5 mg PO BID Qty: 6 0RF lidocaine [Lidoderm] 5 % adhesive patch,medicated 1 patch topical DAILY Qty: 15 0RF Rx Instructions: leave on most painful area for up to 12 hrs No Action omeprazole 20 mg capsule,delayed release(DR/EC) 20 mg PO DAILY Qty: 90 3RF losartan 100 mg tablet 100 mg PO DAILY Qty: 90 3RF glipizide 10 mg tablet extended release 24hr 10 mg PO BID Qty: 180 3RF diltiazem HCl 240 mg capsule,extended release 24hr 240 mg PO DAILY Qty: 90 3RF Ozempic 2 mg/dose (8 mg/3 mL) pen injector 2 mg subcut QWEEK Qty: 9 1RF nitrofurantoin macrocrystal 100 mg capsule 100 mg PO BID Qty: 14 0RF Rx Instructions: must administer with a meal/food (DME) OneTouch Ultra Blue Test Strip Strip See Rx Instructions Not Applicable DAILY Qty: 10 Rx Instructions: As directed polaprezinc (zinc carnosine) PO metronidazole 0.75 % cream 1 appl topical BID (DME) blood sugar diagnostic Strip See Rx Instructions .ROUTE .MEDSUPPLY Qty: 100 3RF Rx Instructions: One touch test strips use 1 strip to test blood sugar once daily diphenhydramine HCl [NightTime Sleep Aid (diphen)] 25 mg capsule 25 mg PO BEDTIME PRN lactobacillus combination no.9 [Adult 50 Plus Probiotic] PO DAILY albuterol sulfate 90 mcg/actuation HFA aerosol inhaler inhalation methenamine hippurate 1 gram tablet 1 g PO BID mecobalamin (vitamin B12) 1,000 mcg tablet,disintegrating 1,000 mcg sublingual DAILY Rx Instructions: place tablet under tongue and allow to dissolve for at least30 secs before swallowing omega-3 fatty acids-fish oil [Fish Oil] 360-1,200 mg capsule 1 cap PO DAILY ascorbic acid (vitamin C) 500 mg capsule PO albuterol sulfate 0.63 mg/3 mL solution for nebulization inhalation BID cholecalciferol (vitamin D3) 25 mcg (1,000 unit) capsule 25 mcg PO DAILY magnesium 250 mg tablet 250 mg PO DAILY acetaminophen [Tylenol] 325 mg capsule 325 mg PO QID PRN Replens Gel vaginal Print Language: Nauruan
[2024-05-12] MEDS: Lidocaine 4 % Patch ADH..PATCH 1 PATCH TRANSDERMA (10:21)
[2024-05-12] MEDS: Baclofen 10 MG TABLET PO (10:21)
--- NOTE | 2024-05-12 10:24 | PC.NURSE ---
pt a&ox3, ambulating with steady gait, pt medicated for 7-8/10 lower back pain, pt to xray will continue to monitor
[2024-05-12 12:29] LABS: Appearance Urine Clear; Color Urine Yellow; Glucose Urine UA Negative (Negative); Leukocyte Esterase Urine Trace (Negative); Nitrite Urine Negative (Negative); PH 5.5 (5.0-9.0); UMIC TRIGGER UACC YES; Urine Blood Negative (Negative); Urine Ketones Negative (Negative); Urine Protein Negative (Neg-Trace)
[2024-05-12 12:34] LABS: Bacteria Urine None Seen (None Seen); Hyaline Casts Urine 0-2 /LPF (0-2); RBC Urine 0-2 /HPF (0-2); WBC Urine 0-5 /HPF (0-5)
[2024-05-12 14:37] VITALS: BP 150/59; PULSE 66; RESP 16; TEMP 36.7; O2SAT 96
== END 2024-05-12 14:38 | disposition home or self-care (01) ==
PROVIDERS: Physician Assistant Medical; Emergency Provider Emergency Medicine; PCP Internal Medicine
DX: S39.012A Strain of muscle, fascia and tendon of lower back, initial encounter (principal); X58.XXXA Exposure to other specified factors, initial encounter; M54.41 Lumbago with sciatica, right side; E11.9 Type 2 diabetes mellitus without complications; I10 Essential (primary) hypertension; Y93.9 Activity, unspecified; Y92.9 Unspecified place or not applicable; Y99.9 Unspecified external cause status
CPT/HCPCS: 72072; 72100; 81001; 99282; 99283

== ENCOUNTER 2024-05-22 08:49 | Emergency (ER) | payer MEDICARE, OTHER, SELFPAY ==
--- NOTE | ~2024-05-22 | CT_ITS ---
EXAMINATION: CT lumbar spine wo IV con CLINICAL INFORMATION: ongoing lumbar pain, midline tenderness COMPARISON: Lumbar spine radiograph 05/12/2024, renal ultrasound 05/03/2024, CT abdomen/pelvis 11/16/2022 TECHNIQUE: Helical CT images were acquired through the lumbar spine without the use of intravenous contrast. Axial reconstructions were reviewed along with sagittal and coronal MPRs. This CT examination was performed using dose optimization techniques as appropriate, variously including the following: * Automated exposure control * Adjustment of mA and/or kV according to patient size (this includes techniques or standardized protocols for targeted exams where dose is matched to indication/reason for exam; i.e. extremities or head) Use of iterative reconstruction technique DLP: 417 mGy-cm FINDINGS: Moderate left convexity lumbar scoliosis with apex at L3. Grade 1 left lateral spondylolisthesis of L4 on L5. Degenerative disc disease at L3-L4 and L4-L5 with vacuum disc phenomenon, loss of intervertebral disc height and marginal osteophytes. Severe lower lumbar bilateral facet arthropathy. Moderate left L4-5 neural foraminal stenosis. Severe right L1-L2 neural foraminal stenosis. Moderate right L2-L3 and L3-L4 neural foraminal stenosis. Vertebral body heights are maintained. No acute fracture or traumatic subluxation. Multilevel loss of intervertebral disc height. There is a left-sided disc bulge at L1-L2 resulting in mild canal stenosis. Posteriorly projecting disc osteophyte complex at L2-L3 results in mild canal stenosis at this level. The paraspinal soft tissues are unremarkable. 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 Right renal posterior cortical scarring. Moderate scattered aortoiliac atheromatous calcifications. CT/CT lumbar spine wo IV con IMPRESSION: 1. No acute fracture or traumatic subluxation. 2. Moderate left convexity lumbar scoliosis with apex at L3 with grade 1 left lateral spondylolisthesis of L4 on L5. Severe right L1-L2 and moderate right L2-L3 and L3-L4 neural foraminal stenosis. 3. Degenerative disc disease at L3-L4 and L4-L5. Severe lower lumbar bilateral facet arthropathy. 4. Left-sided disc bulge at L1-L2 resulting in mild canal stenosis. Electronically signed by: Yoko Cannon DO 05/22/2024 01:28 PM EDT
[2024-05-22 08:51] VITALS: BP 150/72; PULSE 84; RESP 16; TEMP 36.5; O2SAT 98; BMI 29.3
--- NOTE | 2024-05-22 09:23 | ED.GENADULT ---
HPI - General Adult General Chief complaint: Back Pain/Injury Stated complaint: Sciatic pain, fall on 05/03 Time Seen by Provider: 05/22/24 09:16 Source: patient Mode of arrival: ambulatory Limitations: no limitations History of Present Illness ED Provider: Brent HPI narrative: Patient is an 83-year-old female with history of DM, HTN, diastolic dysfunction, osteoporosis, asthma presenting to the emergency department with complaint of ongoing lumbar pain, worse on the right, radiating down right leg to knee. Seen here on 05/12 for same pain, discharged home on baclofen and lidocaine patches. She states the baclofen was helpful, but was unable to fill the prescription for lidocaine patches because insurance would not cover. Has also been taking Tylenol and ibuprofen with some relief, but states pain worsens at night and interferes with sleep. Denies saddle anesthesia or bowel or bladder incontinence. Denies fevers. Fell on 05/03, but was seen here after that time and had imaging obtained. 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 MD complaint: back pain Onset (ago): week(s) Location: back Radiation: extremity Severity: severe Quality: aching Pain Consistency: constant Relieving factors: other (baclofen) Associated symptoms: denies other symptoms Treatments prior to arrival: NSAID and other Related Data Home Medications ?Medication ?Instructions ?Recorded ?Confirmed ascorbic acid (vitamin C) 500 mg mg PO 05/28/20 04/25/24 capsule mecobalamin (vitamin B12) 1,000 1,000 mcg sublingual DAILY 05/28/20 04/25/24 mcg disintegrating tablet,sublingual methenamine hippurate 1 gram tablet 1 g PO BID 05/28/20 04/25/24 omega-3 fatty acids-fish oil 360 1 cap PO DAILY 05/28/20 04/25/24 mg-1,200 mg capsule (Fish Oil) blood sugar diagnostic #10 ea 07/15/20 03/13/24 albuterol sulfate 90 mcg/actuation inhalation 01/08/21 04/25/24 aerosol inhaler polaprezinc (zinc carnosine) PO 08/28/21 04/25/24 metronidazole 0.75 % topical cream 1 appl topical BID 12/22/22 04/25/24 diphenhydramine HCl 25 mg capsule 25 mg PO BEDTIME PRN 03/21/24 04/25/24 (NightTime Sleep Aid (diphenhydramine)) acetaminophen 325 mg capsule 325 mg PO QID PRN 04/25/24 04/25/24 (Tylenol) albuterol sulfate 0.63 mg/3 mL mg inhalation BID 04/25/24 04/25/24 solution for nebulization cholecalciferol (vitamin D3) 25 25 mcg PO DAILY 04/25/24 04/25/24 mcg (1,000 unit) capsule glycerin-mineral oil-polycarbophil ea vaginal 04/25/24 04/25/24 vaginal gel (Replens vaginal gel) lactobacillus combination no.9 PO DAILY 04/25/24 04/25/24 [Adult 50 Plus Probiotic] magnesium 250 mg tablet 250 mg PO DAILY 04/25/24 04/25/24 Previous Rx's ?Medication ?Instructions ?Recorded blood sugar diagnostic #100 ea 09/28/23 omeprazole 20 mg capsule,delayed 20 mg PO DAILY #90 caps 10/31/23 release losartan 100 mg tablet 100 mg PO DAILY #90 tabs 11/21/23 glipizide 10 mg tablet, extended 10 mg PO BID #180 tabs 01/18/24 release 24 hr diltiazem HCl 240 mg 240 mg PO DAILY #90 caps 02/02/24 capsule,extended release 24 hr Ozempic 2 mg/dose (8 mg/3 mL) 2 mg (0.75 mL) subcut QWEEK #9 mL 04/11/24 subcutaneous pen injector (semaglutide) nitrofurantoin macrocrystal 100 mg 100 mg PO BID #14 caps 05/01/24 capsule baclofen 5 mg tablet 5 mg PO BID #6 tabs 05/12/24 lidocaine 5 % topical patch 1 patch topical DAILY #15 ea 05/12/24 (Lidoderm) baclofen 5 mg tablet 5 mg PO BID #10 tabs 05/22/24 prednisone 20 mg tablet 20 mg PO DAILY #7 tabs 05/22/24 Allergies Allergy/AdvReac Type Severity Reaction Status Date / Time alendronate sodium Allergy Intermediate DIARRHEA Verified 05/22/24 08:57 [From FOSAMAX] ciprofloxacin [CIPROFLOXACIN] Allergy Intermediate HEADACHE,SO Verified 05/22/24 08:57 B hydrochlorothiazide Allergy Intermediate HEADACHE,DIZZINESS, Verified 05/22/24 08:57 [HYDROCHLOROTHIAZIDE] Gi upset levofloxacin [From LEVAQUIN] Allergy Intermediate HEADACHE,SO Verified 05/22/24 08:57 B metformin [METFORMIN] Allergy Intermediate DIARRHEA, Verified 05/22/24 08:57 Gi upset pravastatin [PRAVASTATIN] Allergy Intermediate HEADACHE,SOB, Verified 05/22/24 08:57 Gi upset simvastatin [SIMVASTATIN] Allergy Intermediate HEADACHE,SOB, Verified 05/22/24 08:57 Gi upset canagliflozin [From INVOKANA] AdvReac Intermediate DIARRHEA Verified 05/22/24 08:57 dapagliflozin [From FARXIGA] AdvReac Intermediate DIARRHEA Verified 05/22/24 08:57 dulaglutide [From Trulicity] AdvReac Intermediate skin bumps Verified 05/22/24 08:57 mannitol [From Reclast] AdvReac bone pain Verified 05/22/24 08:57 water for injection,sterile AdvReac bone pain Verified 05/22/24 08:57 [From Reclast] zoledronic acid AdvReac bone pain Verified 05/22/24 08:57 [From Reclast] From PERCOCET AdvReac Mild NAUSEA Uncoded 05/22/24 08:57 Review of Systems Review of Systems: As per HPI. Yes all other systems are reviewed and are negative Constitutional: Constitutional: Reports as per HPI PMFSH Past Medical History Medical History Annual physical exam Asthma Diabetes mellitus HTN (hypertension) Diastolic dysfunction Family history of total abdominal hysterectomy and bilateral salpingo-oophorectomy (JOANA-BSO) Surgical History Hx of bilateral cataract extraction History of bladder suspension procedure History of lumpectomy of right breast History of trigger finger History of urethrocutaneous fistula Hx of hysterectomy Hx of section Hx of appendectomy Family History Family History Father CAD (coronary artery disease) Mother Parkinson disease Mental health disorder Brother Diabetes Melanoma Social History Social History Housing: House Alcohol intake: never Patient Tobacco Use Status: Never used Tobacco e-Cigarette/Vaping Use: Never Used Second Hand Smoke Exposure: No Advance Directives: No Advance Directives Information Provided: Yes Do you have a plan to hurt others: No Plan service: No Current occupational 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 Blood pressure elevated. Heart rate normal. Respiratory rate normal. Temperature normal. Oxygen saturation normal. Const General: cooperative, healthy appearing and no acute distress Orientation/consciousness: oriented to person, oriented to place, oriented to time and patient oriented x3 Limitations: no limitations HENMT Head: Yes normocephalic and Yes atraumatic Ears: external ears normal General nose exam: Normal external nose present Face and sinus: Yes face symmetric Mouth: oropharynx normal and moist mucous membranes Throat: Yes uvula midline Eyes Pupils: Equal, round and reactive pupils present Neck Neck: Yes normal visual inspection and Yes supple Resp Effort & Inspection: normal respiratory effort and able to speak in complete sentences Auscultation: clear to auscultation bilaterally Cardio Rate: regular rate Rhythm: regular rhythm Heart sounds: S1 normal heart sound present and S2 normal heart sound present GI Palpation (GI): Soft to palpation and nontender Auscultation: normoactive bowel sounds General: Yes no CVA tenderness Back/Spine/Pelvis Back: no CVA tenderness Thoracic/Lumbar Spine: thoracic and lumbar spine normal to inspection, thoraco-lumbar ROM normal, straight leg raise negative bilaterally, pain with thoraco-lumbar ROM, paraspinal muscle tenderness on the right in the lower lumbar, No thoracic spinal tenderness and lumbar spinal tenderness at L4 and at L5 Pelvis: no pain with anterior-posterior compression and no pain with lateral compression Sacroiliac joints: on the right tender to palpation Sacrum: no tenderness Skin General skin exam: elasticity normal and turgor normal Neuro General: oriented to person, oriented to place, oriented to time, patient oriented x3, gait normal, tone normal, moves all extremities, Normal light touch and pain sensation, no focal motor deficits, CN's II-XI intact bilaterally and deep tendon reflexes 2+ bilaterally Cranial nerves: Yes Equal, round and reactive pupils present Cognition (Neuro): normal cognition Motor exam (neuro): 5/5 motor strength present throughout, Normal motor muscle tone present throughout and Motor abnormalities not present Extrem General: Yes full ROM, Yes no pedal edema and Yes no calf tenderness Psych Mental Status: mental status grossly normal Affect: normal affect Thought process: Normal thought process present Medications Administered Discontinued Medications Generic Name Dose Route Start Last Admin Trade Name Freq PRN Reason Stop Dose Admin Cyclobenzaprine HCl 5 mg 05/22/24 09:34 05/22/24 10:23 Cyclobenzaprine Hcl 5 Mg Tablet PO 05/22/24 09:35 5 mg ONCE ONE Administration Lidocaine 1 patch 05/22/24 09:36 05/22/24 10:22 Lidocaine 4 % Patch Adh..Patch TRANSDERMA 05/22/24 09:37 1 patch ONCE ONE Administration Protocol Medical Decision Making Medical Decision Making [facility] Narrative: Patient is an 83-year-old female with history of DM, HTN, diastolic dysfunction, osteoporosis, asthma presenting to the emergency department with complaint of ongoing lumbar pain, worse on the right, radiating down right leg to knee. On exam patient is awake, A+Ox3, BP elevated, VS otherwise WNL, afebrile, normal neurological exam without focal deficits, physical exam findings as above. Given reported symptoms and physical exam findings, initial differential includes lumbar radiculopathy, lumbar strain. Less likely UTI but will check UA. Urinalysis notable for 2+ leukocytes, 11-20 WBCs. Given that patient was just treated for UTI, will await results of urine culture prior to treatment with antibiotics. Lumbar CT notable for scoliosis, spondylolisthesis, foraminal stenosis, DDD, facet arthropathy, and left sided disc bulge at L1-L2. My interpretation is in agreement with the radiologist's interpretation. Results discussed with patient and all questions answered. Will treat patient with short course of prednisone as well as additional baclofen, will refer to Dr. Capellan for further evaluation and management. Return precautions discussed at bedside. Follow-up with PCP as well. Patient verbalized understanding of and agreement with plan. Differential Diagnosis Differential Diagnoses: The differential diagnosis associated with the presentation includes As per MDM Admission/Observation Consideration of admission/observation: Escalation of care including admission/observation considered Patient would have been admitted to the hospital had their work up had any findings where hospital admission was appropriate and their clinical presentation warranted hospital admission. Lab Data [facility] Lab Attestation statement: I reviewed the patient's lab results. As per [facility] Labs: Lab Results 05/22/24 Range/Units 11:01 Urine Color Yellow Urine Appearance Cloudy Urine pH 5.5 (5.0-9.0) Ur Specific [place] 1.020 (1.005-1.025) Urine Protein Negative (Neg-Trace) mg/dL Urine Glucose (UA) 100 H (Negative) mg/dL Urine Ketones Negative (Negative) mg/dL Urine Blood Negative (Negative) Urine Nitrite Negative (Negative) Ur Leukocyte Esterase Moderate (2+) H (Negative) Urine RBC 0-2 (0-2) /HPF Urine WBC 11-20 H (0-5) /HPF Ur Squamous Epith Cells >20 (0-2) /HPF Urine Bacteria Trace (None Seen) Hyaline Casts 0-2 (0-2) /LPF Independent Interpretation I performed an independent interpretation of an: CT Scan Interpretation: Lumbar CT notable for scoliosis, spondylolisthesis, foraminal stenosis, DDD, facet arthropathy, and left sided disc bulge at L1-L2. Radiology Impression Discussion of test interpretation with radiology: I have reviewed the radiologist's reading. Radiologist Impression: CT/CT lumbar spine wo IV con IMPRESSION: 1. No acute fracture or traumatic subluxation. 2. Moderate left convexity lumbar scoliosis with apex at L3 with grade 1 left lateral spondylolisthesis of L4 on L5. Severe right L1-L2 and moderate right L2-L3 and L3-L4 neural foraminal stenosis. 3. Degenerative disc disease at L3-L4 and L4-L5. Severe lower lumbar bilateral facet arthropathy. 4. Left-sided disc bulge at L1-L2 resulting in mild canal stenosis. External Record Review External record reviewed: Inpatient record, Office record and Outpatient record Prescription Management I considered prescription management with: Pain Medication and Other Chronic Conditions Patient?s care impacted by: Diabetes Discharge Plan Discharge Clinical Impression: Bulging lumbar disc, Lumbar radiculopathy Patient Disposition: Home, Self-Care Instructions: Lumbar Radiculopathy (ED), Degenerative Disc Disease (ED) Additional Instructions: You were evaluated in the emergency department today for ongoing lower back pain. Your urinalysis did not show evidence of infection. If your urine culture shows evidence of infection, you will be notified via telephone. Your CT scan showed scoliosis, degenerative disc disease, as well as a left-sided disc bulge at L1/L2. We recommend that you follow-up with the family services specialist, Dr. Hernadez for further evaluation and management of your back pain. We recommend that you follow-up with your primary care provider as well. You are being treated with a short course of prednisone which is a steroid. Be aware that this medication may increase your blood glucose levels. You are also being prescribed additional baclofen. We recommend that you continue to use Tylenol and ibuprofen as needed. You can purchase [id number] lidocaine patches as well. Return to the emergency department if you experience worsening back pain, difficulty walking, fevers, numbness, tingling, incontinence, groin numbness or tingling, or any other concerning symptoms. Prescriptions: New prednisone 20 mg tablet 20 mg PO DAILY Qty: 7 0RF baclofen 5 mg tablet 5 mg PO BID Qty: 10 0RF No Action omeprazole 20 mg capsule,delayed release(DR/EC) 20 mg PO DAILY Qty: 90 3RF losartan 100 mg tablet 100 mg PO DAILY Qty: 90 3RF glipizide 10 mg tablet extended release 24hr 10 mg PO BID Qty: 180 3RF diltiazem HCl 240 mg capsule,extended release 24hr 240 mg PO DAILY Qty: 90 3RF Ozempic 2 mg/dose (8 mg/3 mL) pen injector 2 mg subcut QWEEK Qty: 9 1RF nitrofurantoin macrocrystal 100 mg capsule 100 mg PO BID Qty: 14 0RF Rx Instructions: must administer with a meal/food baclofen 5 mg tablet 5 mg PO BID Qty: 6 0RF lidocaine [Lidoderm] 5 % adhesive patch,medicated 1 patch topical DAILY Qty: 15 0RF Rx Instructions: leave on most painful area for up to 12 hrs (DME) OneTouch Ultra Blue Test Strip Strip See Rx Instructions Not Applicable DAILY Qty: 10 Rx Instructions: As directed polaprezinc (zinc carnosine) PO metronidazole 0.75 % cream 1 appl topical BID (DME) blood sugar diagnostic Strip See Rx Instructions .ROUTE .MEDSUPPLY Qty: 100 3RF Rx Instructions: One touch test strips use 1 strip to test blood sugar once daily diphenhydramine HCl [NightTime Sleep Aid (diphen)] 25 mg capsule 25 mg PO BEDTIME PRN lactobacillus combination no.9 [Adult 50 Plus Probiotic] PO DAILY albuterol sulfate 90 mcg/actuation HFA aerosol inhaler inhalation methenamine hippurate 1 gram tablet 1 g PO BID mecobalamin (vitamin B12) 1,000 mcg tablet,disintegrating 1,000 mcg sublingual DAILY Rx Instructions: place tablet under tongue and allow to dissolve for at least30 secs before swallowing omega-3 fatty acids-fish oil [Fish Oil] 360-1,200 mg capsule 1 cap PO DAILY ascorbic acid (vitamin C) 500 mg capsule PO albuterol sulfate 0.63 mg/3 mL solution for nebulization inhalation BID cholecalciferol (vitamin D3) 25 mcg (1,000 unit) capsule 25 mcg PO DAILY magnesium 250 mg tablet 250 mg PO DAILY acetaminophen [Tylenol] 325 mg capsule 325 mg PO QID PRN Replens Gel vaginal Referrals: Adriano Hernadez MD, PhD [Physician] - Print Language: Citizen [place]
[2024-05-22] MEDS: Lidocaine 4 % Patch ADH..PATCH 1 PATCH TRANSDERMA (10:22)
[2024-05-22] MEDS: Cyclobenzaprine HCl 5 MG TABLET PO (10:23)
[2024-05-22 11:09] LABS: Appearance Urine Cloudy; Color Urine Yellow; Glucose Urine UA 100 mg/dL (Negative); Leukocyte Esterase Urine Moderate (2+) (Negative); Nitrite Urine Negative (Negative); PH 5.5 (5.0-9.0); UMIC TRIGGER UACC YES; Urine Blood Negative (Negative); Urine Ketones Negative (Negative); Urine Protein Negative (Neg-Trace)
[2024-05-22 11:11] LABS: Bacteria Urine Trace (None Seen); Hyaline Casts Urine 0-2 /LPF (0-2); RBC Urine 0-2 /HPF (0-2); Squamous Epithelial Cell Urine >20 /HPF (0-2); UACC Culture Trigger YES
[2024-05-22 14:27] VITALS: BP 150/72; PULSE 84; RESP 16; TEMP 36.5; O2SAT 98
== END 2024-05-22 14:28 | disposition home or self-care (01) ==
PROVIDERS: Registered Nurse Emergency; Emergency Provider Emergency Medicine; PCP Internal Medicine
DX: M54.16 Radiculopathy, lumbar region (principal); M51.369 Other intervertebral disc degeneration, lumbar region without mention of lumbar back pain or lower extremity pain; M54.50 Low back pain, unspecified; E11.9 Type 2 diabetes mellitus without complications; I10 Essential (primary) hypertension; M25.561 Pain in right knee; Z79.899 Other long term (current) drug therapy
CPT/HCPCS: 72131; 81001; 87086; 99283; 99284

== ENCOUNTER 2024-05-30 12:42 | Outpatient (AMB) | payer MEDICARE, OTHER, SELFPAY ==
--- NOTE | 2024-05-30 12:58 | A.SPINEOV_ITS ---
Intake Visit Reasons: ED f/u Intake Note: Ms. Cornelio Harrington is here today to F/u after being at the ED for ongoing Low back pain. Behavioral Health Care Coordinator Required: No Allergies alendronate sodium [From FOSAMAX] Allergy (Intermediate, Verified 05/30/24 12:59) DIARRHEA ciprofloxacin [CIPROFLOXACIN] Allergy (Intermediate, Verified 05/30/24 12:59) HEADACHE,SOB hydrochlorothiazide [HYDROCHLOROTHIAZIDE] Allergy (Intermediate, Verified 05/30/24 12:59) HEADACHE,DIZZINESS, Gi upset levofloxacin [From LEVAQUIN] Allergy (Intermediate, Verified 05/30/24 12:59) HEADACHE,SOB metformin [METFORMIN] Allergy (Intermediate, Verified 05/30/24 12:59) DIARRHEA, Gi upset pravastatin [PRAVASTATIN] Allergy (Intermediate, Verified 05/30/24 12:59) HEADACHE,SOB, Gi upset simvastatin [SIMVASTATIN] Allergy (Intermediate, Verified 05/30/24 12:59) HEADACHE,SOB, Gi upset canagliflozin [From INVOKANA] Adverse Reaction (Intermediate, Verified 05/30/24 12:59) DIARRHEA dapagliflozin [From FARXIGA] Adverse Reaction (Intermediate, Verified 05/30/24 12:59) DIARRHEA dulaglutide [From Trulicity] Adverse Reaction (Intermediate, Verified 05/30/24 12:59) skin bumps mannitol [From Reclast] Adverse Reaction (Verified 05/30/24 12:59) bone pain water for injection,sterile [From Reclast] Adverse Reaction (Verified 05/30/24 12:59) bone pain zoledronic acid [From Reclast] Adverse Reaction (Verified 05/30/24 12:59) bone pain From PERCOCET Adverse Reaction (Mild, Uncoded 05/22/24 08:57) NAUSEA Assessment & Plan Assessment & Plan (1) Degenerative scoliosis: Code(s): M41.50 - Other secondary scoliosis, site unspecified Category: Medical Plan Genie comes in today as a follow-up after being evaluated in the emergency department for low back pain and shooting pains into her right lower extremity. She reports that about 2-3 months ago she began having a sciatic type pain starting in her low back shooting a over her right posterior buttocks wrapping around the front of her leg and going down over the top of her knee. She denies any numbness/tingling associated with this pain. She states this pain has waxed/waned since onset and has been extremely inconsistent. She will have entire days where she has 0 pain, then will have other days where she has severe flare-ups of sciatic pain. She has tried kccr-ocz-pxruxln medications such as Tylenol, ibuprofen, lidocaine patches. She has largely denied prescription medications for this issue as she does not like the way they make her feel. She has no history of spine surgery or cortisone injections. She has never been to physical therapy for her back per her report. She states that lifting and bending exacerbate her pain and that sitting and resting helps to alleviate her pain. She denies any perineal numbness or bladder/bowel issues outside of her baseline. PMH: Osteoporosis, diastolic dysfunction, hypertension, type 2 diabetes, asthma, vitamin-D deficiency, vitamin B12 deficiency, benign positional vertigo, lateral epicondylitis, pancreatic cyst, history of hysterectomy, history of cholecystectomy, 3 previous dilation and curettage he was, fistula, bladder issues (patient report), 2 trigger finger repairs. Social hx: Patient does not smoke, reports no substance use. Medications: Diltiazem, losartan, glipizide, Tylenol, albuterol, vitamin-C, baclofen, vitamin D3, diphenhydramine, probiotic, lidocaine patches, magnesium, vitamin B12, methenamine, omega-3 fatty acid, omeprazole, Ozempic. Allergies: Alendronate, Cipro, HCTZ, levofloxacin, metformin, pravastatin, simvastatin, canagliflozin, to pack with flows and, Trulicity, mannitol, zoledronic acid, Percocet. Physical exam: On examination the patient has 5/5 strength in her upper and lower extremities. She ambulates well without the assistance of any walker or cane. She is able to get up onto the exam table without significant issue. She walks without an antalgic gait. She has no significant sensational deficits. Her reflexes are 2+ intact. (-) Todd's, (-) clonus, (-) bilateral straight leg raise. Imaging review: CT scan of the lumbar spine completed here at [facility] shows degenerative levoscoliosis of the lumbar spine. There is notable osteophyte bridging at L2-3, L3-4, with severe degenerative disc disease seen at these levels. I do not see much in terms of disc bulge or herniation despite the radiology report stating there is mild stenosis as a result of this at L1-2. There is severe facet arthropathy from L3-S1. Impression: Genie is a pleasant 83-year-old female comes in today with a chief complaint of low back pain and shooting pain into her right lower extremity. On examination today she reports 0 pain and 0 shooting pains down her right leg. She states she feels essentially fine. She has been using Salonpas, lidocaine, and Tylenol/ibuprofen. Her imaging and history are most consistent with a d egenerative scoliosis that has worsened over the course of the years, and may be slowly/intermittently becoming symptomatic as a result of foraminal stenosis and/or positional change. 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 We discussed the possibility of having her complete a course of physical therapy which she is agreeable to. I also discussed the possibility of sending her in a prescription of gabapentin, however she would prefer to remain on cjae-cfv-aukawkz medications. I will order a course of physical therapy for her and advised her to follow up with her primary care physician. The total time spent with this visit with this patient was 45 minutes reviewing history, physical exam, MRI imaging review, and implementation of treatment plan or further diagnostic testing Blayne Hernadez MD,PhD [facility] Coding Level of Care Code New Pt Level 4 (70249) Diagnoses Degenerative scoliosis M41.50
== END 2024-05-30 13:33 | disposition home or self-care (01) ==
LOC: HO.HNS 12:43
PROVIDERS: PCP Internal Medicine; Visit Provider Physician Assistant
DX: M51.360 Other intervertebral disc degeneration, lumbar region with discogenic back pain only (principal); M41.50 Other secondary scoliosis, site unspecified
CPT/HCPCS: 99204

== ENCOUNTER → 2024-05-30 12:42 | Outpatient (BNVA) | payer MEDICARE, OTHER, SELFPAY | PROVIDERS: PCP Internal Medicine; Visit Provider Physician Assistant | DX: M54.50 Low back pain, unspecified (principal); M41.50 Other secondary scoliosis, site unspecified | CPT/HCPCS: 99202 ==

== ENCOUNTER 2024-06-06 13:51 | Outpatient (AMB) | payer MEDICARE, OTHER, SELFPAY ==
[2024-06-06 14:02] VITALS: BP 136/76; PULSE 70; O2SAT 97; BMI 27.8
--- NOTE | 2024-06-06 14:02 | A.OFFPC_ITS ---
Vital Signs 06/06/24 14:02 Height 5 ft 1 in Weight 147 lb BMI 27.8 BP 136/76 Blood Pressure Location Lt brachial Position Sitting Pulse 70 Pulse Source Pulse Oximeter Pulse Oximetry (%) 97 Oxygen Delivery Method Room Air Intake Visit Reasons: sciatica Intake Note: Pt is here today for a sick visit. Pt c/o R side sciatica pain for 2 months now. Allergies alendronate sodium [From FOSAMAX] Allergy (Intermediate, Verified 06/06/24 14:02) DIARRHEA ciprofloxacin [CIPROFLOXACIN] Allergy (Intermediate, Verified 06/06/24 14:02) HEADACHE,SOB hydrochlorothiazide [HYDROCHLOROTHIAZIDE] Allergy (Intermediate, Verified 06/06/24 14:02) HEADACHE,DIZZINESS, Gi upset levofloxacin [From LEVAQUIN] Allergy (Intermediate, Verified 06/06/24 14:02) HEADACHE,SOB metformin [METFORMIN] Allergy (Intermediate, Verified 06/06/24 14:02) DIARRHEA, Gi upset pravastatin [PRAVASTATIN] Allergy (Intermediate, Verified 06/06/24 14:02) HEADACHE,SOB, Gi upset simvastatin [SIMVASTATIN] Allergy (Intermediate, Verified 06/06/24 14:02) HEADACHE,SOB, Gi upset canagliflozin [From INVOKANA] Adverse Reaction (Intermediate, Verified 06/06/24 14:02) DIARRHEA dapagliflozin [From FARXIGA] Adverse Reaction (Intermediate, Verified 06/06/24 14:02) DIARRHEA dulaglutide [From Trulicity] Adverse Reaction (Intermediate, Verified 06/06/24 14:02) skin bumps mannitol [From Reclast] Adverse Reaction (Verified 06/06/24 14:02) bone pain water for injection,sterile [From Reclast] Adverse Reaction (Verified 06/06/24 14:02) bone pain zoledronic acid [From Reclast] Adverse Reaction (Verified 06/06/24 14:02) bone pain From PERCOCET Adverse Reaction (Mild, Uncoded 06/06/24 14:02) NAUSEA Medication List - Last Reconciled 06/06/24 by Corrine Spangler MD acetaminophen (Tylenol) 325 mg PO QID PRN albuterol sulfate 90 mcg/actuation inhalation albuterol sulfate mg inhalation BID ascorbic acid (vitamin C) mg PO blood sugar diagnostic As directed blood sugar diagnostic One touch test strips use 1 strip to test blood sugar once daily cholecalciferol (vitamin D3) 25 mcg PO DAILY diltiazem HCl CD 240 mg PO DAILY diphenhydramine HCl (NightTime Sleep Aid (diphenhydramine)) 25 mg PO BEDTIME PRN glipizide ER 10 mg PO BID glycerin-min oil-polycarbophil (Replens vaginal gel) ea vaginal lactobacillus combination no.9 (Adult 50 Plus Probiotic) PO DAILY lidocaine 5% (Lidoderm) 1 patch topical DAILY losartan 100 mg PO DAILY magnesium 250 mg PO DAILY mecobalamin (vitamin B12) 1,000 mcg sublingual DAILY methenamine hippurate 1 g PO BID metronidazole 0.75% 1 appl topical BID nitrofurantoin macrocrystal 100 mg PO BID omega-3 fatty acids-fish oil 360-1,200 mg (Fish Oil) 1 cap PO DAILY omeprazole 20 mg PO DAILY Ozempic (semaglutide) 2 mg (0.75 mL) subcut QWEEK NS polaprezinc (zinc carnosine) PO Tobacco use date assessed: 06/06/24 Dental Screening Dental Screen Date: 09/28/23 HPI sciatica HPI Details Pt presents for f/u 2 ER visits for sciatica radiating to right lower extremity and a mechanical fall. Pt takes Ibuprofen and Lidocaine cream with some relief. Pt has physical therapy scheduled to be started in 2 weeks. Patient has been using cane to support her walking but is feeling better. She reports improving blood glucose readings on Ozempic occasionally down to 80's fasting. hypertension is controlled on current medications. [facility] Medical History Annual physical exam Asthma Diabetes mellitus HTN (hypertension) Diastolic dysfunction Family history of total abdominal hysterectomy and bilateral salpingo- oophorectomy (JOANA-BSO) Surgical History Hx of bilateral cataract extraction History of bladder suspension procedure History of lumpectomy of right breast History of trigger finger History of urethrocutaneous fistula Hx of hysterectomy Hx of section Hx of appendectomy Family History Father CAD (coronary artery disease) Mother Parkinson disease Mental health disorder Brother Diabetes Melanoma Social History Housing: House Alcohol intake: never Patient Tobacco Use Status: Never used Tobacco e-Cigarette/Vaping Use: Never Used Second Hand Smoke Exposure: No service: No Current occupational status: retired 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 1. Little interest or pleasure in doing things: nearly every day 2. Feeling down, depressed, or hopeless: nearly every day 3. Trouble falling or staying asleep, or sleeping too much: several days 4. Feeling tired or having little energy: more than half the days 5. Poor appetite or overeating: nearly every day 6. Feeling bad about yourself - or that you are a failure or have let yourself or your family down: not at all 7. Trouble concentrating on things, such as reading the newspaper or watching television: not at all 8. Moving or speaking so slowly that other people could have noticed. Or the opposite - being so fidgety or restless that you have been moving around a lot more than usual: not at all 9. Thoughts that you would be better off or of hurting yourself in some way: not at all Total score: 12 Depression Screening Interpretation: Negative Depression Screening Done: Yes 78757 - PHQ-9 Billing: Yes Source: Developed by Drs. Nishant Ryees, Bhavani Lee, Samy Voss and colleagues, with an educational kai from [employer]. Thrive Questionnaire Date Thrive assessed: 09/28/23 I am a: Patient What is your living situation today?: I have a steady place to live Within the past 12 months, did the food you bought not last and you didn't have the money to get more?: Never true Within the past 12 months, did you worry whether your food would run out before you got money to buy more?: Never true Do you have trouble paying for medicines?: No Do you have trouble getting transportation to medical appointments?: No Do you have trouble paying your heating and electricity bill?: Yes Do you have trouble taking care of your child, family member or friend?: No Do you have trouble with day-to-day activities such as bathing, preparing meals, shopping, managing finances, etc.?: No Are you currently unemployed and looking for a job?: No Are you interested in more education?: No Please select the resources that you would like help with: Utilities Currently or been in a relationship where the following occur: No concerns reported THRIVE Score: 1 AUDIT C Alcohol Use Questionnaire (AUDIT-C) 1. How often do you have a drink containing alcohol?: Monthly or less 2. How many drinks containing alcohol do you have on a typical day when you are drinking?: 1 or 2 3. How often do you have six or more drinks on one occasion?: Never Total Score: 1 EDNA-7 AMB Questionnaire EDNA-7 Date EDNA - 7 assessed: 09/28/23 Feeling nervous, anxious, or on edge: 0 = Not at all Not being able to stop or control worryin = Not at all Worrying too much about different things: 1 = Several days Trouble relaxin = Not at all Being so restless that it is hard to sit still: 0 = Not at all Becoming easily annoyed or irritable: 0 = Not at all Feeling afraid as if something awful might happen: 1 = Several days Total EDNA-7 score (0-4 normal; 5-9 mild; 10-14 moderate; 15-21 severe): 2 Source: Developed by Drs. Nishant Reyes, Bhavani Lee, Samy Voss and colleagues, with an educational kai from [employer]. Review of Systems Const All systems reviewed & are unremarkable except as noted in HPI and below Card Reports no additional complaints GI Reports no additional complaints Reports no additional complaints Musc Reports no additional complaints Physical exam (Primary Care) Vital Signs: Last Vital Signs Pulse 70 06/06/24 14:02 BP 136/76 06/06/24 14:02 Pulse Ox 97 06/06/24 14:02 Oxygen Delivery Method Room Air 06/06/24 14:02 BMI result Body Mass Index 27.8 Tobacco/Smoking Status: Tobacco use Status Tobacco use date assessed 06/06/24 06/06/24 14:30 Patient Tobacco Use Status Never used Tobacco 06/06/24 14:03 e-Cigarette/Vaping Use Never Used 06/06/24 14:03 PHQ-9: PHQ-9 Score PHQ-9: Total score 12 06/06/24 14:31 Depression Screening Interpretation: Negative Thrive Assessment: Date of Thrive Assessment Date Thrive assessed 09/28/23 06/06/24 14:03 Currently or been in a relationship where the following occur: No concerns reported Const General: no acute distress HENMT Ears: hearing grossly normal bilaterally Face and sinus: Yes normal facial exam Throat: Yes posterior oropharynx normal Neck Neck: Yes supple Resp Effort & Inspection: normal respiratory effort Auscultation: clear to auscultation bilaterally Cardio Rhythm: regular rhythm Heart sounds: S1 normal heart sound present and S2 normal heart sound present Back/Spine/Pelvis Other: A slight paraspinal tenderness lower lumbar region, straight leg rising 90 degrees bilaterally, motor strength 4/5 proxic Coding Level of Care Code Est Pt Level 4 (86562) Diagnoses HTN (hypertension) I10 Diabetes mellitus E11.9 Degenerative scoliosis M41.50 Additional Codes PHQ-9 - 04790 - PHQ-9 Billing: Yes ([id number]) Assessment & Plan Assessment & Plan (1) HTN (hypertension): Code(s): I10 - Essential (primary) hypertension Category: Medical Plan: Continue current medications (2) Diabetes mellitus: Comment: Intolerant to Trulicity, Jardiance, Farxiga metformin Code(s): E11.9 - Type 2 diabetes mellitus without complications Category: Medical Plan: Continue current medications patient was advised to decrease glipizide to 1 tablet a day instead of twice a day to avoid hypoglycemia. She will follow-up in 1 month with a fasting labs before (3) Degenerative scoliosis: Code(s): M41.50 - Other secondary scoliosis, site unspecified Category: Medical Plan: Patient will be starting physical therapy. She was advised to start using stationary bike at least 15 minutes daily to improve lower extremities strength
== END 2024-06-06 15:07 | disposition home or self-care (01) ==
LOC: HO.HMCC 13:52
PROVIDERS: PCP Internal Medicine; Visit Provider Internal Medicine
DX: I10 Essential (primary) hypertension (principal); E11.9 Type 2 diabetes mellitus without complications; M41.50 Other secondary scoliosis, site unspecified

== ENCOUNTER → 2024-06-06 13:51 | Outpatient (BNVA) | payer MEDICARE, OTHER, SELFPAY | PROVIDERS: PCP Internal Medicine; Visit Provider Internal Medicine | DX: I10 Essential (primary) hypertension (principal); E11.9 Type 2 diabetes mellitus without complications; M41.50 Other secondary scoliosis, site unspecified | CPT/HCPCS: 96127; 99212 ==

== ENCOUNTER 2024-07-11 06:43 | Outpatient (REF) | payer MEDICARE, OTHER, SELFPAY ==
[2024-07-11 10:55] LABS: Estimated Average Glucose 151 mg/dL; Hemoglobin A1C 165.5999 umol/L; Hemoglobin A1c % 6.9 % (<6.0)
[2024-07-11 10:58] LABS: Alanine Aminotransferase 18 U/L (0-31); Albumin Level 3.9 g/dL (3.5-5.0); Alkaline Phosphatase 95 U/L (39-117); Anion Gap 17 (12-20); Aspartate Amino Transferase 23 U/L (5-31); Bilirubin Total 0.5 mg/dL (0.0-1.0); Blood Urea Nitrogen 16 mg/dL (9-16); Calcium 9.6 mg/dL (8.4-10.2); Carbon Dioxide 25 mmol/L (22-29); Chloride 105 mmol/L (96-108); Cholesterol 187 mg/dL (<200); Estimated Glomerular Filt Rate > 60; Glucose Fasting 187 mg/dL (60-99); HDL Cholesterol 39 mg/dL (>40); LDL Cholesterol Calculated 111 mg/dL (<100); Potassium 4.2 mmol/L (3.3-5.1); Sodium 143 mmol/L (135-145); Total Protein 6.9 g/dL (6.5-8.0); Triglycerides 188 mg/dL (<150)
[2024-07-11 11:14] LABS: Folate 12.4 ng/mL (> or = 4.0); Vitamin B12 836 pg/mL (200-900)
[2024-07-11 11:48] LABS: Creatinine Urine 78.39 mg/dL; Microalbum/Creatinine Ratio Ur 26.7 ug/mg cr (<30)
--- OUTSIDE RECORDS SUMMARY | 2024-07-12 18:32 | XMS_ITS | Continuity of Care Document ---
Author Organization [facility] Address [address] [place] [address] Dr [address] [place] [address] Phone Care Team Providers Care Home Economist Consumer Service Name Role Phone Niall Dai MD, FACS, RVT Unavailable Unavailable Advance Directives Directive Yes / No Effective Date File Name No Information Encounters Encounter Description Practice Location Reason(s) For Visit Diagnoses Date Provider Providers Copied on Encounter [facility], [address], [place], [id number], tel:[phone] [address] [facility] No Information Sep- 0 3 Agustín Garcia. [address] [facility], [facility] [address], [place], [address], [place]. tel:[phone] Referring Provider: Corrine Spangler MD S, [address] [place] [address], [address]. tel:[phone] Family History Family Member Type Diagnosis Age [...]
== END 2024-07-11 06:44 | disposition home or self-care (01) ==
LOC: HO.HMGCLDS 06:43
PROVIDERS: PCP Internal Medicine; Visit Provider Internal Medicine
DX: I10 Essential (primary) hypertension (principal); E11.9 Type 2 diabetes mellitus without complications
CPT/HCPCS: 36415; 80053; 80061; 82043; 82570; 82607; 82746; 83036

== ENCOUNTER 2024-08-23 09:11 | Outpatient (AMB) | payer MEDICARE, OTHER, SELFPAY ==
[2024-08-23 09:12] VITALS: BP 136/64; PULSE 59; O2SAT 97; BMI 26.8
--- NOTE | 2024-08-23 09:12 | A.OFFPC_ITS ---
Vital Signs 08/23/24 09:12 Height 5 ft 1 in Weight 142 lb BMI 26.8 BP 136/64 Blood Pressure Location Lt brachial Position Sitting Pulse 59 Pulse Source Pulse Oximeter Pulse Oximetry (%) 97 Oxygen Delivery Method Room Air Intake Visit Reasons: 4 Mo F/U Intake Note: Pt is here today for 4 months follow up visit. Allergies alendronate sodium [From FOSAMAX] Allergy (Intermediate, Verified 08/23/24 09:) DIARRHEA ciprofloxacin [CIPROFLOXACIN] Allergy (Intermediate, Verified 08/23/24:) HEADACHE,SOB hydrochlorothiazide [HYDROCHLOROTHIAZIDE] Allergy (Intermediate, Verified 08/23/24:) HEADACHE,DIZZINESS, Gi upset levofloxacin [From LEVAQUIN] Allergy (Intermediate, Verified 08/23/24) HEADACHE,SOB metformin [METFORMIN] Allergy (Intermediate, Verified 08/23/24) DIARRHEA, Gi upset pravastatin [PRAVASTATIN] Allergy (Intermediate, Verified 08/23/24) HEADACHE,SOB, Gi upset simvastatin [SIMVASTATIN] Allergy (Intermediate, Verified 08/23/24:) HEADACHE,SOB, Gi upset canagliflozin [From INVOKANA] Adverse Reaction (Intermediate, Verified 08/23/24:) DIARRHEA dapagliflozin [From FARXIGA] Adverse Reaction (Intermediate, Verified 08/23/24) DIARRHEA dulaglutide [From Trulicity] Adverse Reaction (Intermediate, Verified 08/23/24:) skin bumps mannitol [From Reclast] Adverse Reaction (Verified 08/23/24:) bone pain water for injection,sterile [From Reclast] Adverse Reaction (Verified 08/23/24:) bone pain zoledronic acid [From Reclast] Adverse Reaction (Verified 08/23/24:) bone pain From PERCOCET Adverse Reaction (Mild, Uncoded 08/23/24:) NAUSEA Medication List - Last Reconciled 08/23/24 by Corrine Spangler MD acetaminophen (Tylenol) 325 mg PO QID PRN albuterol sulfate 90 mcg/actuation inhalation albuterol sulfate mg inhalation BID ascorbic acid (vitamin C) mg PO blood sugar diagnostic As directed blood sugar diagnostic One touch test strips use 1 strip to test blood sugar once daily cholecalciferol (vitamin D3) 25 mcg PO DAILY diltiazem HCl CD 240 mg PO DAILY diphenhydramine HCl (NightTime Sleep Aid (diphenhydramine)) 25 mg PO BEDTIME PRN glipizide ER 10 mg PO BID glycerin-min oil-polycarbophil (Replens vaginal gel) ea vaginal lactobacillus combination no.9 (Adult 50 Plus Probiotic) PO DAILY lidocaine 5% (Lidoderm) 1 patch topical DAILY losartan 100 mg PO DAILY magnesium 250 mg PO DAILY mecobalamin (vitamin B12) 1,000 mcg sublingual DAILY methenamine hippurate 1 g PO BID metronidazole 0.75% 1 appl topical BID omega-3 fatty acids-fish oil 360-1,200 mg (Fish Oil) 1 cap PO DAILY omeprazole 20 mg PO DAILY polaprezinc (zinc carnosine) PO Tobacco use date assessed: 08/23/24 Fall risk assessment: No Falls in past year Last assessed Fall Risk: 08/23/24 Dental Screening Dental Screen Date: 08/23/24 Did you have a dental visit in the last 12 months?: Yes Did you have a dental problem in the last 6 months where you did not have access to dental care?: No Was dental information given to patient?: Patient has dentist HPI 4 Mo F/U HPI Details Pt presents for DM 2, hypertension. Patient took Ozempic for 1 month in June but did not refill prescription in July. She reports worsening blood glucose readings up to 200 in the morning for the last few weeks. Patient has not be compliant with the ADA diet, eating more sweets and white bread. She has been taking glipizide 10 mg twice a day. [facility] Medical History Annual physical exam Asthma Diabetes mellitus HTN (hypertension) Diastolic dysfunction Family history of total abdominal hysterectomy and bilateral salpingo- oophorectomy (JOANA-BSO) Surgical History Hx of bilateral cataract extraction History of bladder suspension procedure History of lumpectomy of right breast History of trigger finger History of urethrocutaneous fistula Hx of hysterectomy Hx of section Hx of appendectomy Family History Father CAD (coronary artery disease) Mother Parkinson disease Mental health disorder Brother Diabetes Melanoma Social History Housing: House Alcohol intake: never Patient Tobacco Use Status: Never used Tobacco e-Cigarette/Vaping Use: Never Used Second Hand Smoke Exposure: No service: No Current occupational status: retired 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 1. Little interest or pleasure in doing things: nearly every day 2. Feeling down, depressed, or hopeless: several days 3. Trouble falling or staying asleep, or sleeping too much: several days 4. Feeling tired or having little energy: more than half the days 5. Poor appetite or overeating: not at all 6. Feeling bad about yourself - or that you are a failure or have let yourself or your family down: not at all 7. Trouble concentrating on things, such as reading the newspaper or watching television: not at all 8. Moving or speaking so slowly that other people could have noticed. Or the opposite - being so fidgety or restless that you have been moving around a lot more than usual: not at all 9. Thoughts that you would be better off or of hurting yourself in some way: not at all Total score: 7 Depression Screening Interpretation: Negative Depression Screening Done: Yes 68707 - PHQ-9 Billing: Yes Source: Developed by Drs. Nishant Reyes, Bhavani Lee, Samy Voss and colleagues, with an educational kai from [employer]. Thrive Questionnaire Date Thrive assessed: 08/23/24 I am a: Patient What is your living situation today?: I have a steady place to live Within the past 12 months, did the food you bought not last and you didn't have the money to get more?: Never true Within the past 12 months, did you worry whether your food would run out before you got money to buy more?: Never true Do you have trouble paying for medicines?: No Do you have trouble getting transportation to medical appointments?: No Do you have trouble paying your heating and electricity bill?: Yes Do you have trouble taking care of your child, family member or friend?: No Do you have trouble with day-to-day activities such as bathing, preparing meals, shopping, managing finances, etc.?: No Are you currently unemployed and looking for a job?: No Are you interested in more education?: No Please select the resources that you would like help with: Utilities Currently or been in a relationship where the following occur: No concerns reported THRIVE Score: 1 AUDIT C Alcohol Use Questionnaire (AUDIT-C) 1. How often do you have a drink containing alcohol?: Never 3. How often do you have six or more drinks on one occasion?: Never Total Score: 0 EDNA-7 AMB Questionnaire EDNA-7 Date EDNA - 7 assessed: 08/23/24 Feeling nervous, anxious, or on edge: 0 = Not at all Not being able to stop or control worryin = Not at all Worrying too much about different things: 0 = Not at all Trouble relaxin = Not at all Being so restless that it is hard to sit still: 0 = Not at all Becoming easily annoyed or irritable: 0 = Not at all Feeling afraid as if something awful might happen: 0 = Not at all Total EDNA-7 score (0-4 normal; 5-9 mild; 10-14 moderate; 15-21 severe): 0 Source: Developed by Drs. Nishant Reyes, Bhavani Lee, Samy Voss and colleagues, with an educational kai from [employer]. EDNA-7 Assessment Billing EDNA-7 Assessment Tool: EDNA-7 Assessment 33214 Review of Systems Const All systems reviewed & are unremarkable except as noted in HPI and below Eyes Reports no additional complaints ENT Reports no additional complaints Card Reports no additional complaints Resp Reports no additional complaints GI Reports no additional complaints Reports no additional complaints Physical exam (Primary Care) Vital Signs: Last Vital Signs Pulse 59 08/23/24 09:12 BP 136/64 08/23/24 09:12 Pulse Ox 97 08/23/24 09:12 Oxygen Delivery Method Room Air 08/23/24 09:12 BMI result Body Mass Index 26.8 Tobacco/Smoking Status: Tobacco use Status Tobacco use date assessed 08/23/24 08/23/24 09:34 Patient Tobacco Use Status Never used Tobacco 08/23/24 09:12 e-Cigarette/Vaping Use Never Used 08/23/24 09:12 PHQ-9: PHQ-9 Score PHQ-9: Total score 7 08/23/24 09:35 Depression Screening Interpretation: Negative Thrive Assessment: Date of Thrive Assessment Date Thrive assessed 08/23/24 08/23/24 09:35 Currently or been in a relationship where the following occur: No concerns reported Const General: no acute distress HENMT Head: Yes normal to inspection Throat: Yes posterior oropharynx normal Eyes General: appearance normal, both eyes and all related structures Neck Neck: Yes supple Resp Effort & Inspection: normal respiratory effort Auscultation: clear to auscultation bilaterally Cardio Rhythm: regular rhythm Heart sounds: S1 normal heart sound present and S2 normal heart sound present GI Inspection: Yes normal to inspection Palpation (GI): Soft to palpation Percussion: Yes normal to percussion Coding Level of Care Code Est Pt Level 4 (79597) Complex EM visit Add On G2211 Diagnoses HTN (hypertension) I10 Diabetes mellitus E11.9 Asthma J45.909 Vitamin D deficiency E55.9 Vitamin B12 deficiency E53.8 Additional Codes EDNA-7 Assessment Billing - EDNA-7 Assessment Tool: EDNA-7 Assessment 25211 ([id number]) PHQ-9 - 23207 - PHQ-9 Billing: Yes ([id number]) Assessment & Plan Assessment & Plan (1) HTN (hypertension): Code(s): I10 - Essential (primary) hypertension Category: Medical Plan: Continue current medications (2) Diabetes mellitus: Comment: Intolerant to Trulicity, Jardiance, Farxiga metformin Code(s): E11.9 - Type 2 diabetes mellitus without complications Category: Medical Plan: A1c is 6.9, ADA diet increase physical activity weight loss discussed with the patient. She will restart Ozempic 2 mg weekly. Patient will follow-up in 3 months with a fasting labs before (3) Asthma: Comment: f/u Dr. Pagan Code(s): J45.909 - Unspecified asthma, uncomplicated Category: Medical Plan: Continue current medications including preventive inhaler and follow-up with photovoltaic technician (4) Vitamin D deficiency: Code(s): E55.9 - Vitamin D deficiency, unspecified Category: Medical Plan: Continue vitamin-D supplement (5) Vitamin B12 deficiency: Code(s): E53.8 - Deficiency of other specified B group vitamins Category: Medical Plan: Continue vitamin B12 supplement Orders: Orders Lipid Panel 3 Months E11.9 - Type 2 diabetes mellitus without complications, E53.8 - Deficiency of other specified B group vitamins, E55.9 - Vitamin D deficiency, unspecified, I10 - Essential (primary) hypertension, J45.909 - Unspecified asthma, uncomplicated Microalbumin, Random (w Creat) 3 Months E11.9 - Type 2 diabetes mellitus without complications, E53.8 - Deficiency of other specified B group vitamins, E55.9 - Vitamin D deficiency, unspecified, I10 - Essential (primary) hypertension, J45.909 - Unspecified asthma, uncomplicated Comprehensive [place]. Panel Fast 3 Months E11.9 - Type 2 diabetes mellitus without complications, E53.8 - Deficiency of other specified B group vitamins, E55.9 - Vitamin D deficiency, unspecified, I10 - Essential (primary) hypertension, J45.909 - Unspecified asthma, uncomplicated Complete Blood Count Auto Diff 3 Months E11.9 - Type 2 diabetes mellitus without complications, E53.8 - Deficiency of other specified B group vitamins, E55.9 - Vitamin D deficiency, unspecified, I10 - Essential (primary) hypertension, J45.909 - Unspecified asthma, uncomplicated Hemoglobin A1c 3 Months E11.9 - Type 2 diabetes mellitus without complications, E53.8 - Deficiency of other specified B group vitamins, E55.9 - Vitamin D deficiency, unspecified, I10 - Essential (primary) hypertension, J45.909 - Unspecified asthma, uncomplicated Vitamin D 25-OH Total 3 Months E11.9 - Type 2 diabetes mellitus without complications, E53.8 - Deficiency of other specified B group vitamins, E55.9 - Vitamin D deficiency, unspecified, I10 - Essential (primary) hypertension, J45.909 - Unspecified asthma, uncomplicated Vitamin B12 and Folate 3 Months E11.9 - Type 2 diabetes mellitus without complications, E53.8 - Deficiency of other specified B group vitamins, E55.9 - Vitamin D deficiency, unspecified, I10 - Essential (primary) hypertension, J45.909 - Unspecified asthma, uncomplicated Medications: New semaglutide (Ozempic) 2 mg (0.75 mL) subcut QWEEK 3 mL 3RF semaglutide (Ozempic) 2 mg (0.75 mL) subcut QWEEK 3 mL 3RF semaglutide (Ozempic) 2 mg (0.75 mL) subcut QWEEK 9 mL 3RF estradiol 0.01%(0.1mg/gram) pea size to urethra daily; 42.5 grams 3RF
--- OUTSIDE RECORDS SUMMARY | 2024-08-23 09:36 | XMS_ITS | Patient Health Record ---
Author Organization [facility] Address [address] [place] [address] Care Team Providers Care Segmental Paver Installer Name Role Phone Corrine Spangler MD Primary Care Provider Nishant Amaro [phone] ALLERGIES Allergen (clinical drug ingredient) Drug/Non Drug Allergy documented on EMR Reaction Allergy Type Onset Date Status cephalexin Cephalexin Unknown Drug Allergy Activ e sulfamethoxazole / trimethoprim Bactrim Unknown Drug Allergy Active atorvastatin Atorvastatin Calcium Unknown Drug Allergy Active alendronate Alendronate Sodium Unknown Drug Allergy Active sensative to most statins-no real allergy (uncoded) diarrhea Allergy Active dapagliflozin Farxiga Unknown Drug Allergy Act chey canagliflozin Invokana Unknown Drug Allergy Act chey simvastatin Simvastatin Unknown Drug Allergy Act chey pravastatin Pravastatin Sodium Unknown Drug Allergy Active metformin Metformin HCl Unknown Drug Allergy Act chey Levaquin Unknown Drug Allergy Active hydrochlorothiazide Hydrochlorothiazide Unknown Drug Aller gy Active REASON FOR REFERRAL No Information MEDICATIONS Medication SIG (Take, Route, Frequency, Duration) Notes Start Date End Date Status Probiotic Active Zinc Active Fish Oil 1200 MG 1 capsule Orally Onc e a day Active Motrin Active Calcium 500 MG 1 tablet with meals Orally Once a day Active Aspir-81 81 MG 1 tablet Orally twic e a week Active Vitamin B12 1000 MCG 1 tablet Orally Onc e a day Active Prolia 60 MG/ML as directed Subcutaneous Active Vitamin E Active Vitamin C Active Magnesium Active Turmeric Active Claritin Active Prevagen Active Flonase Active Januvia 100 MG 1 tablet Orally Once a day Active Albuterol Sulfate 0.63 MG/3ML as directed Inhalation Active Trulicity 3 MG/0.5ML as directed Subcutaneous Active Night Time Sleep Aid Active hydroCHLOROthiazide 25 MG 1 tablet in th e morning Orally Once a day Active Omeprazole 20 MG 1 capsule Orally Onc e a day Active metroNIDAZOLE 0.75 % 1 application Externally as needed Active Methenamine Hippurate 1 GM 1 tablet Oral ly Twice a day Active glipiZIDE ER 2.5 MG 3 tablet Orally Once a day Active Flovent HFA 220 MCG/ACT 2 puffs Inhalati on Twice a day Active Vitamin D 1000 UNIT 1 tablet Orally Once a day Active Montelukast Sodium 10 MG 1 tablet Orally Once a day Active Losartan Potassium 100 MG 1 tablet Orall y Once a day Active IMMUNIZATIONS Vaccine Route Administration Date Status Comme nts Flu vaccine no Preserv 3 and > Unknown 04/27/2017 Admin istered SOCIAL HISTORY Sex Assigned At : Social History Observation Description Sex Assigned At Unknown PROBLEMS Problem Type ICD Code Onset Dates Problem Status W/U Status Risk SNOMED Code Notes Problem Pancreatic cyst (K86.2) Active confirmed 45458669 Problem Constipation, unspecified constipation type (K59.00) Active confirmed 20820079 Problem Abdominal pain, left lower quadrant (R10.32) Active confirmed 772333640 Problem Irritable bowel syndrome, unspecified type (K58.9) Active confirmed 01793568 Problem Hypertension, unspecified type (I10) Active confirmed [id number] PLAN OF TREATMENT No Information Insurance Providers Payer Name Payer Address Payer Phone Subscriber Number Group Number Insured Name Patient Relationship to Insured Coverage Start Date Coverage End Date MEDICARE OF [place] [address] [place] [address] [id number] HOOD CASTILLO Self - patient is the insured [facility] [address] [place] [address] [id number] HOOD CASTILLO Self - patient is the insured MEDICAL (GENERAL) HISTORY Medical History History ICD Code Chronic diarrhea/IBS-colonos copy biopsies negative for colitis in 1994 and labs neg. for celiac disease in 2009 Colon polyps-tubular adenoma s removed in 1999 and 2009-colonoscopy was negative in 2004 except for AVM's NIDDM Hyperlipidemia Hypertension Breast [id number] lumpectomy with XRT UTI's Denies FL,CVA,renal disease Bronchitis Pancreatic cysts seen on MRI in 09/[address] scan in May of 2023 Asthma Surgical History Surgery Date(Month/Year) Cholecystectomy JOANA Rectovaginal fistula repair in 1994 Bladder suspension Veins in LE's Breast cancer as above
--- OUTSIDE RECORDS SUMMARY | 2024-08-23 09:36 | XMS_ITS | Continuity of Care Document ---
Author Organization [facility] Address [address] [place] [address] [address] [place] [address] Phone Care Team Providers Care Denitrator Operator Name Role Phone Niall Dai MD, FACS, RVT Unavailable Unavailable Advance Directives Directive Yes / No Effective Date File Name No Information Encounters Encounter Description Practice Location Reason(s) For Visit Diagnoses Date Provider Providers Copied on Encounter [facility], [address], [place], [id number], tel:[phone] [address] [facility] No Information Sep- 0 3 Agustín Garcia. [address] [facility], [facility] [address], [place], [address], [place]. tel:[phone] Referring Provider: Corrine Spangler MD S, [address] [place] [address], [address]. tel:[phone] Family History Family Member Type Diagnosis Age [...]
--- OUTSIDE RECORDS SUMMARY | 2024-08-23 09:37 | XMS_ITS | Data Portability ---
Author Organization [facility], [address] Address [address] [place] [address] Care Team Providers Care Strategic Communications Specialist Name Role Phone [facility] Primary Care Provider [phone] [facility] UROLOGY OTHER [phone] Assessment No assessment recorded. Plan of Treatment Reminders Order Date Submit Date Provider Last Modified By Organization Details Last Modified Time Details Appointments None recorded. Lab urinalysis , dipstick 2022 023 kayleenGurpreet [address], [address] [place] [address], [phone], 3 09:13:00 glucose, fingerstic k, blood 2022 023 [facility] patino, [address] [place] [address], [phone], 3 09:13:00 culture, urine 2022 023 [place], [address] [place] [address], [place], [address], 3 16:06:30 Referral None recorded. Procedures None recorded. Surgeries None recorded. Imaging None recorded. Medication Orders Macrobid 100 mg capsule 2022 023 [place] [id number], [address] [facility] [place], [address], 3 09:13:03 Patient TargetsNo targets recorded. Patient Instructions Encounter Date Encounter Id Patient Instructions Last Modified By Organization Details Last Modified Time 11/07/2022 [id number] nausea and vomiting: care instructions Not available 11/07/2022 09:13:00 Try small amount s of clear liquids frequently. If vomiting occurs, wait 30-60 minutes before trying clear liquids again. Once you are able to tolerate clear liquids for at least 6 hours without vomiting, you can advance to a soft diet consisting of foods such as bananas, rice, applesauce, toast, crackers, and other foods rich in carbohydrates and low on fats and spices. If the diet is tolerated for 12-24 hours, you can slowly add other foods to your diet. If vomiting occurs, you should go back to clear liquids only and work your way back to a normal diet as outlined above. If much worse, you should seek treatment immediately. Not available 11/07/2022 08:14:48 Health Education and Guidance Diabetes Type 1 and Type 2 The following recommendations are meant to maximize the health of patients with diabetes, while minimizing complications. This information is sourced from the Centers for Disease Control and Prevention (CDC). Routine Care -It is important for patients with diabetes to have routine doctor appointments with their scallop shucker and/or primary care provider to examine or test the following: Blood pressure Feet, for sores at every visit, and give a thorough foot exam at least once a year Hemoglobin A1C test at least twice a year to determine average blood glucose level for the past 2 to 3 months Test urine and blood to check kidney function at least once a year Blood lipids (fats), total cholesterol; LDL, or low-density lipoprotein ( bad cholesterol); HDL, or high-density lipoprotein ( good cholesterol); and triglycerides at least once a year Additionally, the following routine examinations and activities are recommended: Dental check-up twice a year Dilated eye exam once a year Annual flu shot Diabetes can make the immune system more vulnerable to severe cases of the flu. People with diabetes who contract the flu have a greater chance of becoming very sick or possibly . An annual flu shot is an important step in maintaining good health and preventing the flu each year. Everyone with diabetes, even women, should get a yearly flu shot. The best time to get one is between May and mid-June, before the flu season begins. Maintain a Healthy Lifestyle Eat a Healthy Diet Eat smaller portions. Learn what constitutes a serving size for different foods and how many servings are needed in a meal. Eat less fat. Choose fewer high-fat foods and use less fat when cooking. You especially want to limit foods that are high in saturated fats or trans-fat, such as: Fatty cuts of meats Fried foods Whole milk and dairy products made from whole milk Cakes, candy, cookies, crackers, and pies Salad dressings Lard, shortening, stick margarine, and non-dairy creamers Eat more fiber by including more whole-grain foods in a daily diet. Whole grains can be found in: Breakfast cereals made with 100% whole grains Oatmeal Whole grain rice Whole-wheat bread, bagels, rafael bread, and tortillas Eat a variety of fruits and vegetables every day Choose fresh, frozen, canned, or dried fruit and 100% fruit juices most of the time Eat plenty of veggies, such as: Dark green veggies (e.g., broccoli, spinach, brussels sprouts) Gillespie veggies (e.g., carrots, sweet potatoes, pumpkin, winter squash) Beans and peas (e.g., black beans, garbanzo beans, kidney beans, hong beans, split peas, lentils) Eat fewer foods that are high in sugar, such as: Fruit-flavored drinks Sodas Tea or coffee sweetened with sugar Eat fewer foods that are high in salt, such as: Canned and package soups Canned vegetables Pickles Processed meats Use less salt in cooking and at the table Get Routine Physical Activity Physical activity can help control blood glucose, weight, and blood pressure, as well as raise good cholesterol and lower bad cholesterol. It can also help prevent heart and blood flow problems reducing the risk of heart disease and nerve damage, which are often problems for people with diabetes. Experts recommend moderate-intensity physical activity for at least 30 minutes on five or more days of the week. Some examples of moderate-intensity physical activity are walking briskly, mowing the lawn, dancing, swimming, or bicycling. If you are not accustomed to physical activity, consider starting with a little exercise and working up to a moderate level. As strength builds, add a few extra minutes to daily physical activity. Do some physical activity every day. It's better to walk 10 or 20 minutes each day than one hour once a week. Walking vigorously, hiking, climbing stairs, swimming, aerobics, dancing, bicycling, skating, skiing, tennis, basketball, volleyball, or other sports are just some examples of physical activity that work large muscles, increase the heart rate, and make breathing harder, important goals for fitness. In addition, strength training exercises with hand weights, elastic bands, or weight machines can help build muscle. Stretching helps to increase flexibility and prevent soreness after other types of exercise. Physical activity should be enjoyable. If it's fun, there's a greater chance of doing it each day. It can be helpful to exercise with a family member or friend. Stop Smoking and Tobacco Use Smoking and tobacco use puts people with diabetes at particular risk. Smoking raises blood glucose, cholesterol, and blood pressure all of which people with diabetes need to be especially concerned about. When patients have diabetes and use tobacco, the risk of heart and blood vessel problems is even greater. By quitting smoking, there is a lower risk for heart attack, stroke, nerve disease, kidney disease, and oral disease. Monitor Blood Sugars Follow your doctors instructions regarding monitoring blood sugars at home. Examine and Care for Feet Regularly Look for cuts, cracks, sores, red spots, swelling, infected toenails, splinters, blisters, and calluses on the feet each day. Call a doctor if such wounds do not heal after one day. If corns and calluses are present, ask a doctor or safe and vault mechanic about the best way to care for them. Wash feet in warm, not hot, water and dry them well. Cut toenails once a week or when needed. Cut toenails when they are soft from washing. Cut them to the shape of the toe and not too short. File the edges with an emery board. Rub lotion on the tops and bottoms of feet, but not between the toes, to prevent cracking and drying. Wear shoes that fit well. Break in new shoes slowly by wearing them one to two hours each day for the first few weeks. Wear stockings or socks to avoid blisters and sores. Wear clean, lightly padded socks that fit well; seamless socks are best. Always wear shoes or slippers. Bare feet make it easy to step on something and cause injury. Protect feet from extreme heat and cold. When sitting, keep the blood flowing to lower limbs by propping feet up and moving toes and ankles for a few minutes at a time. Please note that these messages are only recommendations. They should be part of an overall health plan established with your primary care physician. Sources: Centers for Disease Control and Prevention, www.cdc.gov Not available 11/07/2022 09:12:40 Reason for Referral None Reported. Results Created Date Observation Date Name Description Value Unit Range Abnormal Flag Note LastModifiedBy Organization Detail LastModifiedTime 11/08/19 23 11/14/2022 URINE CULTU RE, ROUTI NE urine culture, routine FINAL REPORT abnormal Not Available [facility]) [address] [place], [address], 11/14/2022 08:07:39 11/08/1911/14/2022 URINE CULTU RE, ROUTI NE result 1 ENTERO BACTER SPECIE S abnormal 50,00 0-100 ,000 colon y formi ng units per mL Not Available [facility] ([facility]) [address] [facility], [place], [address], 11/14/2022 08:07:39 11/08/1911/14/2022 URINE CULTU RE, ROUTI NE antimicrobia l susceptibili ty COMMEN T S = Susce ptibl e; I = Inter media te; R = Resis tant P = Posit chey; N = Negat chey MICS are expre ssed in micro grams per mL Antib iotic RSLT# 1 RSLT# 2 RSLT# 3 RSLT# 4 Amoxi cilli n/Cla vulan ic Acid R Ampic illin R Cefaz adebayo R Cefep huy S Ceftr iaxon e I Cefur oxime R Cipro floxa ted S Ertap enem S Genta micin S Imipe nem S Levof loxac in S Merop enem S Nitro furan toin S Piper acill in/Ta zobac lara S Tetra cycli ne S Tobra mycin S Trime thopr im/Lopez lfa S Not Available [facility] ([facility]) [address] [facility] [place], [address], 11/14/2022 08:07:39 11/08/1911/07/2022 gluco se, finge rstic k, blood blood sugar - non fasting 221 mg/dL 80-140 = normal Not Available [address], [place], [address], 11/07/2022 08:38:45 11/08/19 23 11/07/2022 gluco se, finge rstic k, blood blood sugar - fasting mg/dL 80-125 = normal Not Available [address], [place], [address], 11/07/2022 08:38:45 11/08/19 23 11/07/2022 urina lysis , dipst ick Unknown Analyte Normal = light yellow Not Available [address], [place], [address], 11/07/2022 08:31:12 11/08/19 23 11/07/2022 urina lysis , dipst ick Unknown Analyte Yellow Not Available [address], [place], [address], 11/07/2022 08:31:12 11/08/19 23 11/07/2022 urina lysis , dipst ick Unknown Analyte Normal = clear Not Available [address], [place], [address], 11/07/2022 08:31:12 11/08/19 23 11/07/2022 urina lysis , dipst ick Unknown Analyte Clear Not Available [address], [place], [address], 11/07/2022 08:31:12 11/08/19 23 11/07/2022 urina lysis , dipst ick Unknown Analyte Normal = negati ve Not Available pete blankenship [address], [place], [address], 11/07/2022 08:31:12 11/08/19 23 11/07/2022 urina lysis , dipst ick Unknown Analyte 250 mg/dL Not Available [facility] [address], [place], [address], 11/07/2022 08:31:12 11/08/19 23 11/07/2022 urina lysis , dipst ick Unknown Analyte Normal = Negati ve Not Available pete blankenship [address], [place], [address], 11/07/2022 08:31:12 11/08/19 23 11/07/2022 urina lysis , dipst ick Unknown Analyte Negati ve Not Available pete blankenship [address], [place], [address], 11/07/2022 08:31:12 11/08/19 23 11/07/2022 urina lysis , dipst ick Unknown Analyte Normal = Negati ve Not Available pete blankenship [address], [place], [address], 11/07/2022 08:31:12 11/08/19 23 11/07/2022 urina lysis , dipst ick Unknown Analyte Negati ve Not Available pete blankenship [address], [place], [address], 11/07/2022 08:31:12 11/08/19 23 11/07/2022 urina lysis , dipst ick Unknown Analyte Normal = 1.010, 1.015, 1.020 Not Available [facility] [address], [place], [place], [address], 11/07/2022 08:31:12 11/08/19 23 11/07/2022 urina lysis , dipst ick Unknown Analyte 1.030 Not Available deanna [address], [place], [address], 11/07/2022 08:31:12 11/08/19 23 11/07/2022 urina lysis , dipst ick Unknown Analyte Normal = Negati ve Not Available pete blankenship [address], [place], [address], 11/07/2022 08:31:12 11/08/19 23 11/07/2022 urina lysis , dipst ick Unknown Analyte Trace- intact Not Available [facility] [address], [place], [address], 11/07/2022 08:31:12 11/08/19 23 11/07/2022 urina lysis , dipst ick Unknown Analyte Normal = 6.5, 7.0, 7.5, 8.0 Not Available pete blankenship [address], [place], [address], 11/07/2022 08:31:12 11/08/19 23 11/07/2022 urina lysis , dipst ick Unknown Analyte 5.5 Not Available [address], [place], [address], 11/07/2022 08:31:12 11/08/19 23 11/07/2022 urina lysis , dipst ick Unknown Analyte Normal = Negati ve Not Available pete blankenship [address], [place], [address], 11/07/2022 08:31:12 11/08/19 23 11/07/2022 urina lysis , dipst ick Unknown Analyte 30 mg/dL Not Available ch[facility] pe [address], [place], [address], 11/07/2022 08:31:12 11/08/1911/07/2022 urina lysis , dipst ick Unknown Analyte Normal = 0.2, 1.0 Not Available [facility] [address], [place], [address], 11/07/2022 08:31:12 11/08/19 23 11/07/2022 urina lysis , dipst ick Unknown Analyte 0.2 E.U./d L Not Available [facility] [address], [place], [address], 11/07/2022 08:31:12 11/08/19 23 11/07/2022 urina lysis , dipst ick Unknown Analyte Normal = Negati ve Not Available [address], [place], [address], 11/07/2022 08:31:12 11/08/19 23 11/07/2022 urina lysis , dipst ick Unknown Analyte Negati ve Not Available [address], [place], [address], 11/07/2022 08:31:12 11/08/1911/07/2022 urina lysis , dipst ick Unknown Analyte Normal = Negati ve Not Available [address], [place], [address], 11/07/2022 08:31:12 11/08/1911/07/2022 urina lysis , dipst ick Unknown Analyte Small Not Available [address] [place] [address], [place], [address], 11/07/2022 08:31:12 Result Notes None recorded. Problems Name Problem SNOMED Code Status Onset Date Resolution Date Notes Provider Name and Address Organization Details Recorded Time Diabetes mellitus 90244687 Active 2022 OLIVIA DEPINTO null, PA - [facility] 3 08:21:08 Osteoporosi s 79903365 Active 2022 OLIVIA DEPINTO null, PA - [facility] 3 08:21:27 Gastroesoph ageal reflux disease 429478095 Active 2022 OLIVIA DEPINTO null, PA - [facility] 3 08:21:32 Hypertensiv e disorder 30903038 Active 2022 OLIVIA DEPINTO null, PA - [facility] 3 08:21:37 Asthma 492960563 Active 2022 OLIVIA DEPINTO null, PA - [facility] 3 08:21:49 Malignant tumor of breast 209677072 Completed 202211/07/20222003 OLIVIA DEPINTO null, PA - [facility] 3 08:23:41 Problem Notes None recorded. Procedures Surgical History Date Name Laterality Status Provider Name and Address Organization Details Recorded Time 11/07/18 71 Appendectomy completed OLIVIA DEPINTO PA - [facility] 11/07/2022 08:22:50 08/02/18 71 cholecystectomy completed OLIVIA DEPINTO PA - [facility] 11/07/2022 08:22:55 lumpectomy of breast completed OLIVIA DEPINTO PA - [facility] 11/07/2022 08:23:19 Imaging Results None recorded. Procedure Notes None recorded. Medical Equipment None Reported. Allergies Allergen ID Allergen Name Allergen Category Reaction Reaction Severity Criticality Documentation Date Start Date Code Code System Note Provider Name and Address Organization Details Recorded Time 731661 hydrochlo rothiazid e medicatio n diarrhea Not available Not available 11/07/2022 5487 RxNorm OLIVIA DEPINTO null, PA - [facility] 3 08:18:50 051569 pravastat in medicatio n diarrhea Not available Not available 11/07/2022 96902 RxNorm OLIVIA DEPINTO null, PA - [facility] 3 08:19:10 790702 metformin medicatio n diarrhea Not available Not available 11/07/2022 6809 RxNorm OLIVIA DEPINTO null, PA - [facility] 3 08:19:19 395182 ciproflox acin medicatio n diarrhea Not available Not available 11/07/2022 2551 RxNorm OLIVIA DEPINTO null, PA - [facility] 3 08:19:43 278265 alendrona te sodium medicatio n diarrhea Not available Not available 11/07/2022 93450 2 RxNorm OLIVIA DEPINTO null, PA - [facility] 3 08:19:52 501019 Farxiga medicatio n diarrhea Not available Not available 11/07/2022 34036 72 RxNorm OLIVIA DEPINTO null, PA - [facility] 3 08:20:02 Medications Name Sig Start Date Stop Date Status Note LastModified by Organization Details LastModified Time albuterol sulfate 0.63 mg/3 mL solution for nebulization INHALE 1 VIAL VIA NEBULIZER 3 TIMES DAILY active Not Available Not Available No t Available diltiazem CD 240 mg capsule,exten ded release 24 hr active Not Available Not Available Not Available glipizide ER 10 mg tablet, extended release 24 hr active Not Available Not Availabl e Not Available Macrobid 100 mg capsule Take 1 capsule every 12 hours by oral route with meals for 7 days. 2022 active Not Available Not Available Not Avai lable methenamine hippurate 1 gram tablet active Not Available Not Available Not Available OneTouch Ultra Test strips ONE TOUCH TEST STRIPS USE 1 STRIP TO TEST BLOOD SUGAR ONCE DAILY active Not Available Not Available No t Available metronidazole 0.75 % topical cream APPLY IN THE MORNING AND EVENING FOR FACE REDNESS active Not Available Not Available No t Available omeprazole 20 mg capsule,delay ed release active Not Available Not Available N ot Available montelukast 10 mg tablet active Not Available Not Available Not Available losartan 100 mg tablet active Not Available Not Available No t Available Flovent HFA 220 mcg/actuation aerosol inhaler INHALE 2 PUFFS BY MOUTH EVERY 12 HOURS RINSE MOUTH AFTER USE active Not Available Not Available No t Available Januvia 100 mg tablet active Not Available Not Available No t Available Prolia 60 mg/mL subcutaneous syringe active Not Available Not Available Not Available Trulicity 1.5 mg/0.5 mL subcutaneous pen injector active Not Available Not Available Not Available Trulicity 3 mg/0.5 mL subcutaneous pen injector active Not Available Not Available Not Available Vitals Date Recorded Body height Provider Name an d Address Organization Details Last Updated DateTime 11/07/2022 154.94 cm OLIVIA DEPINTO PA - [facility] 0 11/07/2022 08:16:07 Date Recorded Body mass index (BMI) Body weight Provider Name and Address Organization Details Last Updated DateTime 11/07/2022 27 kg/m2 08705.71 g OLIVIA DEPINTO PA - [facility] 11/07/2022 08:16:12 Date Recorded Pain severity - 0-10 verbal numeric rating [Score] - Reported Provider Name and Address Organization Details Last Updated DateTime 11/07/2022 0 OLIVIA DEPINTO PA - [facility] 0 11/07/2022 08:16:18 Date Recorded Respiratory rate Provider Name a nd Address Organization Details Last Updated DateTime 11/07/2022 18 /min OLIVIA DEPINTO PA - [facility] 0 11/07/2022 08:23:49 Date Recorded Body temperature Provider Name a nd Address Organization Details Last Updated DateTime 11/07/2022 97.2 [degF] OLIVIA DEPINTO PA - [facility] 11/07/2022 08:26:29 Date Recorded Oxygen saturation Oxygen saturation in Arterial blood by Pulse oximetry Provider Name and Address Organization Details Last Updated DateTime 11/07/2022 96 % 96 % OLIVIA DEPINTO PA - [facility] 11/07/2022 08:26:53 Date Recorded Heart rate Provider Name an d Address Organization Details Last Updated DateTime 11/07/2022 75 /min OLIVIA DEPINTO PA - [facility] 0 11/07/2022 08:26:55 Date Recorded Systolic blood pressure Diastolic blood pressure Provider Name and Address Organization Details Last Updated DateTime 11/07/2022 151 mm[Hg] 73 mm[Hg] OLIVIA DEPINTO PA - [facility] 11/07/2022 08:27:08 Social History Question Answer Notes LastModified by Organizat ion Details LastModified Time Tobacco Smoking Status Never Smoker OLIVIA DEPINTO null, PA - [facility] 11/07/2022 08:22:09 What Is Your Level Of Alcohol Consumption? None Information not available 11/07/2022 Do You Use Any Illicit Or Recreational Drugs? No Information not available 11/07/2022 Have You Recently Traveled Abroad? No Information not available 11/07/2022 Do You Or Have You Ever Used Any Other Forms Of Tobacco Or Nicotine? No Information not available 11/07/2022 Sex: Unknown Functional Status None recorded. Mental Status None recorded. Family History Relationship Description Onset Age of this Age Resolved Age Notes LastModified by Organization Details LastModified Time Father No current problems or disability Not available 11/07 08:22:00 Mother No current problems or disability Not available 11/07 08:22:00 Medical History No medical history recorded. Gynecological HistoryNo gynecological history recorded. Obstetrics History GPAL:G 0 P 0 0 0 0 Immunizations Vaccine Type Date Status Note Provider Nam e and Address Organization Details Recorded Time Influenza, split virus, quadrivalent, preservative 9 completed OLIVIA DEPINTO null, PA - [facility] 11/07/2022 08:16:22 zoster recombinant 8 completed OLIVIA DEPINTO null, PA - [facility] 11/07/2022 08:16:22 COVID-19, mRNA, LNP-S, PF, 30 mcg/0.3 mL dose 1 completed OLIVIA DEPINTO null, PA - [facility] 11/07/2022 08:16:22 COVID-19, mRNA, LNP-S, PF, 30 mcg/0.3 mL dose 1 completed OLIVIA DEPINTO null, PA - [facility] 11/07/2022 08:16:22 COVID-19, mRNA, LNP-S, PF, 30 mcg/0.3 mL dose 1 completed OLIVIA DEPINTO null, PA - [facility] 11/07/2022 08:16:22 Pneumococcal conjugate PCV20, polysaccharide [id number] conjugate, adjuvant, PF 3 completed OLIVIA DEPINTO null, PA - [facility] 11/07/2022 08:16:22 COVID-19, mRNA, LNP-S, PF, 30 mcg/0.3 mL dose, billy-sucrose 2 completed OLIVIA DEPINTO null, PA - [facility] 11/07/2022 08:16:22 COVID-19, mRNA, LNP-S, bivalent, PF, 30 mcg/0.3 mL dose 2 completed OLIVIA DEPINTO null, PA - [facility] 11/07/2022 08:16:22 Tdap 7 completed OLIVIA DEPINTO null, PA - [facility] 11/07/2022 08:16:22 zoster live 8 completed OLIVIA DEPINTO null, PA - [facility] 11/07/2022 08:16:22 Influenza, high-dose, trivalent, PF 6 completed OLIVIA DEPINTO null, PA - [facility] 11/07/2022 08:16:22 Influenza, high-dose, trivalent, PF 5 completed OLIVIA DEPINTO null, PA - [facility] 11/07/2022 08:16:22 Influenza, high-dose, trivalent, PF 7 completed OLIVIA DEPINTO null, PA - [facility] 11/07/2022 08:16:22 Influenza, high-dose, trivalent, PF 8 completed OLIVIA DEPINTO null, PA - [facility] 11/07/2022 08:16:22 Influenza, split virus, trivalent, preservative 4 completed OLIVIA DEPINTO null, PA - [facility] 11/07/2022 08:16:23 Influenza, split virus, trivalent, preservative 3 completed OLIVIA DEPINTO null, PA - [facility] 11/07/2022 08:16:23 Past Encounters Encounter ID Performer Location Encounter Start Date Encounter Closed Date Diagnosis/Indication Diagnosis SNOMED-CT Code Diagnosis ICD10 Code Diagnosis Note [id number] [address] [place] [address] 05/01/2018 11:10:17 05/01/2018 12:08:27 [id number] [address] [place] [address] 07/04/2018 08:22:27 07/04/2018 08:50:56 [id number] [address] [place] [address] 10/16/2016 13:39:10 10/16/2016 15:34:24 [id number] [address] [place] [address] 10/16/2018 08:16:49 10/16/2018 09:03:27 [id number] [address] [place] [address] 12/05/2016 08:05:07 12/05/2016 09:01:39 [id number] [address] [place] [address] 08/09/2017 08:51:37 08/09/2017 09:35:02 [id number] [facility] [facility] [address] [place] [address] 08/06/2015 10:01:18 08/06/2015 11:48:14 [id number] 20995_Chi [facility] [address] [place] [address] 09/15/2016 10:47:05 09/15/2016 12:43:09 [id number] 21005_[facility] [address] [place] [address] 10/19/2016 14:20:17 10/19/2016 16:00:31 [id number] Luis Peirce NP 21005_[facility] [address] [place] [address] 11/07/2022 08:06:50 11/07/2022 09:16:29 Acute urinary tract infection [id number] N39.0 Diabetes m ellitus screening [id number] Z13.1 Type 2 lois betes mellitus [id number] E11.22 Health Concerns Section Related Observation LastModified by Organization Detai ls LastModified Time None Recorded Concern Status LastModified by Organization Details LastModified Time None Recorded Advance Directives Directive None Recorded Payers Encounter Date Sequence Insurance Name Policy Number Policy Mercedes Covered Member ID Mercedes Member ID Guarantor Name 08/09/2017 1 [place]: [facility] Genie E Cornelio Harrington [id number] 1 Genie E Cornelio Harrington 08/09/2017 2 [facility] Genie E Cornelio-Mo rin [id number] Genie E Cornelio Harrington 05/01/2018 1 [place]: [facility] Genie E Cornelio Harrington [id number] Genie E Cornelio Harrington 05/01/2018 2 [facility] Genie E Cornelio-Mo rin [id number] Genie E Cornelio Harrington 07/04/2018 1 [place]: [employer] Genie E Cornelio Harrington [id number] Genie E Cornelio Harrington 07/04/2018 2 [facility] Genie E Cornelio-Mo rin [id number] Genie E Cornelio Harrington 10/16/2018 1 [place]: [employer] Genie E Cornelio Harrington [id number] 1 Genie E Cornelio Harrington 10/16/2018 2 [facility] Genie E Cornelio-Mo rin [id number] Genie E Cornelio Harrington 11/07/2022 1 [place]IC[place]: [facility] Genie E Cornelio Harrington [id number] 1 Genie E Cornelio Harrington 11/07/2022 2 [facility] Genie E Cornelio-Mo rin [id number] Genie E Cornelio Harrington Notes Date Note Type Note Provider Name and Address Organization Details Recorded Time 11/07/2022 text/html frequency and ur gency x 3 day. denies any fever or fever with chills, denies any History of renal stone or bladder issues. Luis Stan, SENIOR COST ACCOUNTANT [address] [place], [address], [employer] [facility] 11/07/2022 09:13:42 11/07/2022 text/html Nausea UCReporte d bypatient.source of patient informationPatient arrived at Urgent Care ambulatory Locationsuprapubic Quality:worsening Severity:mild Durationpresent for 1 week Onset/Timing:gradual onset;worse in the morning Contextno drug/alcohol abuse; no one else with similar symptoms; no recent camping; no recent picnic; no possible food sources; no well water; no foreign travel Alleviating factors:nothing helps Associated Symptoms:no abdominal pain; no excess gas; no fever; no cholesterol issues; no diarrhea; no vomiting; no dry heaves; no heartburn; no fatigue; no weakness; no weight loss; no weight gain; no muscle aches; no muscle weakness; no nutrient deficiency; no change in bowel/bladder habitsNotes:Patient has un-control diabetes.Urinary Complaint FemaleReported bypatient.source of patient informationInformation obtained from patient; Patient arrived at Urgent Care ambulatory UTI Symptoms:no blood in the urine; no pain during urination; no vaginal discharge; no urgency; no pain in the flank; no fever/chills; no incontinence; no recurrent UTI; no known exposure to STD;urinary frequency Severity:mild Duration:3 days Modifying Factors:nothing gives reliefNotes:frequency and urgency x 3 day. denies any fever or fever with chills, denies any History of renal stone or bladder issues. Luis Pierce NP [address] [facility] [place], [address], [employer] [facility] 11/07/2022 09:13:42 OBGyn Episode No OBEpisode recorded.
== END 2024-08-23 10:10 | disposition home or self-care (01) ==
PROVIDERS: PCP Internal Medicine; Visit Provider Internal Medicine
DX: I10 Essential (primary) hypertension (principal); E11.9 Type 2 diabetes mellitus without complications; J45.909 Unspecified asthma, uncomplicated; E55.9 Vitamin D deficiency, unspecified; E53.8 Deficiency of other specified B group vitamins

== ENCOUNTER → 2024-08-23 09:11 | Outpatient (BNVA) | payer MEDICARE, OTHER, SELFPAY | PROVIDERS: PCP Internal Medicine; Visit Provider Internal Medicine | DX: I10 Essential (primary) hypertension (principal); E11.9 Type 2 diabetes mellitus without complications; J45.909 Unspecified asthma, uncomplicated; E55.9 Vitamin D deficiency, unspecified; E53.8 Deficiency of other specified B group vitamins | CPT/HCPCS: 96127; 99212 ==

== ENCOUNTER 2024-11-15 06:28 | Outpatient (REF) | payer MEDICARE, OTHER, SELFPAY ==
[2024-11-15 10:09] LABS: MANUAL DIFF FLAG NO
[2024-11-15 10:17] LABS: Basophils Absolute Auto 0.1 X10*3/uL (0.0-0.2); Eosinophils Absolute Auto 0.3 X10*3/uL (0.0-0.4); Eosinophils Percent Auto 3.9 % (0-4); Hematocrit 37.2 % (37.0-47.0); Hemoglobin 12.4 g/dl (12.0-16.0); Imm Gran Abs Auto 0.03 X10*3/uL (0.00-0.03); Imm Gran Pct Auto 0.4 % (0.0-0.4); Lymphocytes Absolute Auto 2.1 X10*3/uL (1.2-4.9); Lymphocytes Percent Auto 28.9 % (20-40); Mean Corpuscular HGB Conc 33.3 g/dl (31.0-35.0); Mean Corpuscular Volume 90.1 fL (80.0-98.0); Mean Platelet Volume 10.4 fL (9.4-12.3); Monocytes Absolute Auto 0.7 X10*3/uL (0.1-1.2); Monocytes Percent Auto 9.3 % (2-11); Neutrophils Absolute Auto 4.1 x10*3/uL (2.0-8.3); Neutrophils Percent Auto 56.5 % (45-73); Platelet Count 202 X10*3/uL (160-400); Red Blood Count 4.13 X10*6/uL (4.20-5.50); Red Cell Distribution Width 14.3 % (11.0-16.0); White Blood Count 7.2 X10*3/uL (4.8-10.8)
[2024-11-15 10:29] LABS: Estimated Average Glucose 174 mg/dL; Hemoglobin A1C 202.4002 umol/L; Hemoglobin A1c % 7.7 % (<6.0); Total Hemoglobin (HGBA1C) 3309.4792 umol/L
[2024-11-15 11:06] LABS: Alanine Aminotransferase 16 U/L (0-31); Albumin Level 3.9 g/dL (3.5-5.0); Alkaline Phosphatase 109 U/L (39-117); Anion Gap 10 (12-20); Aspartate Amino Transferase 22 U/L (5-31); Bilirubin Total 0.4 mg/dL (0.0-1.0); Blood Urea Nitrogen 19 mg/dL (9-16); Calcium 9.4 mg/dL (8.4-10.2); Carbon Dioxide 25 mmol/L (22-29); Chloride 110 mmol/L (96-108); Cholesterol 177 mg/dL (<200); Estimated Glomerular Filt Rate > 60; Glucose Fasting 133 mg/dL (60-99); HDL Cholesterol 40 mg/dL (>40); LDL Cholesterol Calculated 111 mg/dL (<100); Potassium 3.9 mmol/L (3.3-5.1); Sodium 141 mmol/L (135-145); Total Protein 6.6 g/dL (6.5-8.0); Triglycerides 132 mg/dL (<150); Vitamin D 25-OH Total 64.5 ng/mL (>30)
[2024-11-15 11:18] LABS: Folate 14.4 ng/mL (> or = 4.0); Vitamin B12 1000 pg/mL (200-900)
[2024-11-15 11:23] LABS: Creatinine Urine 81.11 mg/dL; Microalbum/Creatinine Ratio Ur 27.1 ug/mg cr (<30)
== END 2024-11-15 06:29 | disposition home or self-care (01) ==
LOC: HO.HMGCLDS 06:28
PROVIDERS: PCP Internal Medicine; Visit Provider Internal Medicine
DX: E11.9 Type 2 diabetes mellitus without complications (principal); I10 Essential (primary) hypertension; E53.8 Deficiency of other specified B group vitamins; E55.9 Vitamin D deficiency, unspecified; J45.909 Unspecified asthma, uncomplicated
CPT/HCPCS: 36415; 80053; 80061; 82043; 82306; 82570; 82607; 82746; 83036; 85025

== ENCOUNTER 2024-11-22 09:52 | Outpatient (AMB) | payer MEDICARE, OTHER, SELFPAY ==
[2024-11-22 10:04] VITALS: BP 128/64; PULSE 86; TEMP 36.7; O2SAT 98; BMI 27.0
--- NOTE | 2024-11-22 10:04 | MHC.PC.OV ---
Vital Signs 11/22/24 10:04 Height 5 ft 1 in Weight 143 lb BMI 27.0 BP 128/64 Blood Pressure Location Rt brachial Position Sitting Pulse 86 Pulse Source Pulse Oximeter Temp 98.1 F Temp Source Oral Pulse Oximetry (%) 98 Oxygen Delivery Method Room Air Intake Visit Reasons: 3 months f/up Intake Note: Pt is here today for 3 months follow up visit. Allergies alendronate sodium [From FOSAMAX] Allergy (Intermediate, Verified 11/22/24 10:18) DIARRHEA ciprofloxacin [CIPROFLOXACIN] Allergy (Intermediate, Verified 11/22/24 10:18) HEADACHE,SOB hydrochlorothiazide [HYDROCHLOROTHIAZIDE] Allergy (Intermediate, Verified 11/22/24 10:18) HEADACHE,DIZZINESS, Gi upset levofloxacin [From LEVAQUIN] Allergy (Intermediate, Verified 11/22/24 10:18) HEADACHE,SOB metformin [METFORMIN] Allergy (Intermediate, Verified 11/22/24 10:18) DIARRHEA, Gi upset pravastatin [PRAVASTATIN] Allergy (Intermediate, Verified 11/22/24 10:18) HEADACHE,SOB, Gi upset simvastatin [SIMVASTATIN] Allergy (Intermediate, Verified 11/22/24 10:18) HEADACHE,SOB, Gi upset canagliflozin [From INVOKANA] Adverse Reaction (Intermediate, Verified 11/22/24 10:18) DIARRHEA dapagliflozin [From FARXIGA] Adverse Reaction (Intermediate, Verified 11/22/24 10:18) DIARRHEA dulaglutide [From Trulicity] Adverse Reaction (Intermediate, Verified 11/22/24 10:18) skin bumps mannitol [From Reclast] Adverse Reaction (Verified 11/22/24 10:18) bone pain water for injection,sterile [From Reclast] Adverse Reaction (Verified 11/22/24 10:18) bone pain zoledronic acid [From Reclast] Adverse Reaction (Verified 11/22/24 10:18) bone pain From PERCOCET Adverse Reaction (Mild, Uncoded 11/22/24 10:18) NAUSEA Medication List - Last Reconciled 11/22/24 by Corrine Spangler MD acetaminophen (Tylenol) 325 mg PO QID PRN albuterol sulfate 90 mcg/actuation inhalation albuterol sulfate mg inhalation BID ascorbic acid (vitamin C) mg PO blood sugar diagnostic One touch test strips use 1 strip to test blood sugar once daily blood sugar diagnostic (OneTouch Ultra Test strips) USE DIRECTED TO TEST SUGARS DAILY cholecalciferol (vitamin D3) 25 mcg PO DAILY diltiazem HCl CD 240 mg PO DAILY diphenhydramine HCl (NightTime Sleep Aid (diphenhydramine)) 25 mg PO BEDTIME PRN dulaglutide (Trulicity) 1.5 mg (0.5 mL) subcut QWEEK estradiol 0.01%(0.1mg/gram) pea size to urethra daily; glipizide ER 10 mg PO BID glycerin-min oil-polycarbophil (Replens vaginal gel) ea vaginal lactobacillus combination no.9 (Adult 50 Plus Probiotic) PO DAILY lidocaine 5% (Lidoderm) 1 patch topical DAILY losartan 100 mg PO DAILY magnesium 250 mg PO DAILY mecobalamin (vitamin B12) 1,000 mcg sublingual DAILY methenamine hippurate 1 g PO BID metronidazole 0.75% 1 appl topical BID omega-3 fatty acids-fish oil 360-1,200 mg (Fish Oil) 1 cap PO DAILY omeprazole 20 mg PO DAILY polaprezinc (zinc carnosine) PO Tobacco use date assessed: 11/22/24 Fall risk assessment: No Falls in past year Last assessed Fall Risk: 11/22/24 Dental Screening Dental Screen Date: 08/23/24 HPI 3 months f/up HPI Details Pt presents for f/u type 2 diabetes hypertension chronic asthma stable on current medications. She has been taking Trulicity 1.5 mg weekly instead of Ozempic and reports higher fasting blood glucose reading between 140-160. [facility] Medical History Annual physical exam Asthma Diabetes mellitus HTN (hypertension) Diastolic dysfunction Family history of total abdominal hysterectomy and bilateral salpingo-oophorectomy (JOANA-BSO) Surgical History Hx of bilateral cataract extraction History of bladder suspension procedure History of lumpectomy of right breast History of trigger finger History of urethrocutaneous fistula Hx of hysterectomy Hx of section Hx of appendectomy Family History Father CAD (coronary artery disease) Mother Parkinson disease Mental health disorder Brother Diabetes Melanoma Social History Housing: House Alcohol intake: never Patient Tobacco Use Status: Never used Tobacco e-Cigarette/Vaping Use: Never Used Second Hand Smoke Exposure: No service: No Current occupational 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: 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 Cognitive needs: No Hearing needs: No Vision needs: Yes Questionnaire Thrive Questionnaire Date Thrive assessed: 06/06/24 I am a: Patient What is your living situation today?: I have a steady place to live Within the past 12 months, did the food you bought not last and you didn't have the money to get more?: Never true Within the past 12 months, did you worry whether your food would run out before you got money to buy more?: Never true Do you have trouble paying for medicines?: No Do you have trouble getting transportation to medical appointments?: No Do you have trouble paying your heating and electricity bill?: Yes Do you have trouble taking care of your child, family member or friend?: No Do you have trouble with day-to-day activities such as bathing, preparing meals, shopping, managing finances, etc.?: No Are you currently unemployed and looking for a job?: No Are you interested in more education?: No Please select the resources that you would like help with: Utilities Currently or been in a relationship where the following occur: No concerns reported THRIVE Score: 1 EDNA-7 AMB Questionnaire EDNA-7 Date EDNA - 7 assessed: 08/23/24 Source: Developed by Drs. Nishant Reyes, Bhavani Lee, Samy Voss and colleagues, with an educational kai from [employer]. Review of Systems Const All systems reviewed & are unremarkable except as noted in HPI and below Eyes Reports no additional complaints ENT Reports no additional complaints Card Reports no additional complaints Resp Reports no additional complaints GI Reports no additional complaints Reports no additional complaints Physical exam (Primary Care) Vital Signs: Last Vital Signs Temp 98.1 F 11/22/24 10:04 Pulse 86 11/22/24 10:04 BP 128/64 11/22/24 10:04 Pulse Ox 98 11/22/24 10:04 Oxygen Delivery Method Room Air 11/22/24 10:04 BMI result Body Mass Index 27.0 Tobacco/Smoking Status: Tobacco use Status Tobacco use date assessed 11/22/24 11/22/24 10:18 Patient Tobacco Use Status Never used Tobacco 11/22/24 10:18 e-Cigarette/Vaping Use Never Used 11/22/24 10:06 Thrive Assessment: Date of Thrive Assessment Date Thrive assessed 06/06/24 11/22/24 10:06 Currently or been in a relationship where the following occur: No concerns reported Const General: no acute distress HENMT Head: Yes normal to inspection Face and sinus: Yes normal facial exam Eyes General: appearance normal, both eyes and all related structures Neck Neck: Yes supple Resp Effort & Inspection: normal respiratory effort Auscultation: clear to auscultation bilaterally Cardio Rhythm: regular rhythm Heart sounds: S1 normal heart sound present and S2 normal heart sound present GI Inspection: Yes normal to inspection Palpation (GI): Soft to palpation Coding Level of Care Code Est Pt Level 4 (21851) Diagnoses Diabetes mellitus E11.9 HTN (hypertension) I10 Asthma J45.909 Assessment & Plan Assessment & Plan (1) Diabetes mellitus: Comment: Intolerant to Jardiance, Farxiga metformin Code(s): E11.9 - Type 2 diabetes mellitus without complications Category: Medical Plan: A1c is 7.7 up from 6.9, ADA diet regular physical activity discussed with the patient. She will continue glipizide and will increase Trulicity to 3 mg weekly. Patient will notify if she needs and new prescription sent to her pharmacy. Patient will follow-up in 3 months with a fasting labs before (2) HTN (hypertension): Code(s): I10 - Essential (primary) hypertension Category: Medical Plan: Continue current medications (3) Asthma: Comment: f/u Dr. Paagn . Controlled on Flovent and montelukast and albuterol p.r.n. Code(s): J45.909 - Unspecified asthma, uncomplicated Category: Medical Plan: Continue current medications Orders: Orders Comprehensive [place]. Panel Fast 3 Months E11.9 - Type 2 diabetes mellitus without complications, I10 - Essential (primary) hypertension Lipid Panel 3 Months E11.9 - Type 2 diabetes mellitus without complications, I10 - Essential (primary) hypertension Hemoglobin A1c 3 Months E11.9 - Type 2 diabetes mellitus without complications, I10 - Essential (primary) hypertension Medications: New fluticasone propionate 220 mcg/actuation 1 inh inhalation BID 12 grams 3RF
--- OUTSIDE RECORDS SUMMARY | 2024-11-22 11:18 | XMS_ITS | Patient Health Record ---
Author Organization [facility] Address [address] [place] [address] Care Team Providers Care Customer Manager Name Role Phone Corrine Spangler MD Primary Care Provider Unavaila Reese Green Unavailable [phone] Brittany Zepeda Unavailable [phone] Maritza Hazel Unavailable [phone] Allergies Allergen (clinical drug ingredient) Drug/Non Drug Allergy documented on EMR Reaction Allergy Type Onset Date Status Ciprofloxacin diarrhea Drug Allergy Act chey alendronate Fosamax diarrhea Drug Allergy Activ e hydrochlorothiazide Hydrochlorothiazide diarrhea Drug Aller gy Active levofloxacin Levofloxacin diarrhea Drug Allergy A ctive metformin Metformin HCl diarrhea Drug Allergy Act chey pravastatin Pravastatin Sodium diarrhea Drug Allergy Active Simvastatin diarrhea Drug Allergy Activ e Results Component Value Reference Range Notes HEMOGLOBIN A1C (GLYCOHEMOGLO BIN) Reviewed date:08/22/2024 11:43:06 AM Interpretation: Performing Lab: Notes/Report: HEMOGLOBIN A1C % (HH) 6.5 Reason For Referral No Information Medications Medication SIG (Take, Route, Frequency, Duration) Notes Start Date End Date Status Vitamin C Active Fish Oil 1360 MG 1 capsule Orally Once a day for 30 day(s) Not-Taking Prolia 60 MG/ML as directed Subcutaneous 2 TIMES YEARLY Not-Taking Trulicity 1.5 MG/0.5ML Subcutaneous for 84 Days Active Montelukast Sodium 10 MG 1 tablet Orally Once a day Not-Taking Trulicity 3 MG/0.5ML as directed Subcutaneous Not-Taking Losartan Potassium 100 MG Orally Not-Taking Ozempic Active ProAir HFA PRN Not-Takin g aspirin 81 mg daily Not-Ta christian Fluticasone Propionate HFA 220 MCG/ACT Inhalation for 60 Days Active Calcium 1 tab Oral for 14 days Not-Taking Vitamin D 25 MCG (1000 UT) 1 tablet Orally Once a day for 30 day(s) Active Vitamin E Active Mohler 3 Active Albuterol Active Magnesium 500 MG 1 tablet with a meal Orally Once a day for 30 day(s) Active Methenamine Hippurate 1 GM 1 tablet Orally Twice a day Active Flovent HFA PRN Active glipiZIDE XL 10 MG 1 tablets Orally Twice daily Active Turmeric Curcumin 500 MG as directed Orally Active Vitamin B 12 100 MCG as directed Orally Active Omeprazole 20 MG 1 capsule 30 minutes before morning meal Orally Once a day Active Probiotic - as directed Orally Active Januvia 100 MG Orally Not- kristen dilTIAZem HCl 120 MG 2 tablets Orally Active carBAMazepine [facility] christian Immunizations Vaccine Route Administration Date Status Comme nts COVID-19 Pfizer BioNTech Vaccine Unknown 04/29/2021 Administered 1st 09/10/20 2nd 10/01/20 Influenza Unknown 04/27/2017 Administered Influenza Unknown 05/17/2018 Administered Influenza Unknown 03/22/2019 Administered Influenza Unknown 03/27/2020 Administered Influenza Unknown 04/13/2022 Administered Influenza Unknown 04/02/2023 Administered Pneumococcal Unknown 04/13/2022 Administered Social History Tobacco Use: Social History Observation Description Date Details (start date - stop date) Never Smoker NA - NA Tobacco use other than smoking: Question Answer Notes Are you an other tobacco user? No Tobacco Control (Standard) Question Answer Notes Tobacco use: Nonsmoker Additional Findings: Tobacco non-user Current no nsmoker AUDIT-C (Standard) Question Answer Notes Did you have a drink containing alcohol in the p ast year? No Points 0 Interpretation Negative Problems Problem Type SNOMED Code ICD Code Onset Dates Problem Status W/U Status Risk Notes Problem Acquired hammer toe of right foot (2780450537228 105) Other hammer toe(s) (acquired), right foot (M20.41) Active confirmed Response to treatment,I mprovement Problem Type 2 diabetes mellitus with peripheral angiopathy (732422003) Type 2 diabetes mellitus with diabetic peripheral angiopathy without gangrene (E11.51) Active confirmed Problem Acquired hammer toe of left foot (3904869430267 103) Other hammer toe(s) (acquired), left foot (M20.42) Active confirmed Response to treatment,I mprovement Vital Signs Blood pressure diastolic 60 mm Hg 11/14/2024 Height 5 ft 1 in in 11/14/2024 Blood pressure systolic 120 mm Hg 11/14/2024 Weight 144 lbs 11/14/2024 BMI 27.21 kg/m2 11/14/2024 Procedures Procedure Date Ordered Date Performed Result Body Sit e 29326-GXOMNKV NAIL, 6 OR MORE 03/21/2024 N/A 62336-YRNY SKIN LESIONS, OVER 4 03/21/2024 N/A 84589-PCRDMWH NAIL, 6 OR MORE 06/07/2024 N/A 16939-RDQP SKIN LESIONS, OVER 4 06/07/2024 N/A 66604-GBIHCMQ NAIL, 6 OR MORE 08/22/2024 N/A 39009-NUUO SKIN LESIONS, OVER 4 08/22/2024 N/A 96706-RIBOFAX NAIL, 6 OR MORE 11/14/2024 N/A 38026-AJBZ SKIN LESIONS, OVER 4 11/14/2024 N/A Encounters Encounter Location Date Provider Diagnosis [address] [address] 01/07/2024 Brittany Zepeda Type 2 diabetes mellitus with diabetic peripheral angiopathy without gangrene E11.51 ; Tinea unguium B35.1 ; Pain in right toe(s) M79.674 and Pain in left toe(s) M79.[address] [address] 03/21/2024 Reese Garcia Type 2 diabetes mellitus with diabetic peripheral angiopathy without gangrene E11.51 ; Tinea unguium B35.1 ; Pain in right toe(s) M79.674 and Pain in left toe(s) M79.[address] [address] 06/07/2024 Maritza Hazel Type 2 diabetes mellitus with diabetic peripheral angiopathy without gangrene E11.51 ; Tinea unguium B35.1 ; Pain in right toe(s) M79.674 and Pain in left toe(s) M79.[address] [facility] [address] 08/22/2024 Reese Garcia Type 2 diabetes mellitus with diabetic peripheral angiopathy without gangrene E11.51 ; Tinea unguium B35.1 ; Pain in right toe(s) M79.674 ; Pain in left toe(s) M79.675 ; Other hammer toe(s) (acquired), right foot M20.41 and Other hammer toe(s) (acquired), left foot M20.[address] [address] 11/14/2024 Reese Garcia Type 2 diabetes mellitus with diabetic peripheral angiopathy without gangrene E11.51 ; Tinea unguium B35.1 ; Pain in right toe(s) M79.674 and Pain in left toe(s) M79.[address] [address] 04/10/2024 Reese Garcia Assessments Encounter Date Diagnosis (ICD Code) Assessment Notes Treatment Notes Treatment Clinical Notes Section Notes 01/07/2024 Type 2 diabetes mellitus with diabetic peripheral angiopathy without gangrene (ICD-10 - E11.51) 03/21/2024 Type 2 diabetes mellitus with diabetic peripheral angiopathy without gangrene (ICD-10 - E11.51) 03/21/2024 Tinea unguium (ICD-10 - B35.1) 06/07/2024 Type 2 diabetes mellitus with diabetic peripheral angiopathy without gangrene (ICD-10 - E11.51) 06/07/2024 Tinea unguium (ICD-10 - B35.1) 08/22/2024 Type 2 diabetes mellitus with diabetic peripheral angiopathy without gangrene (ICD-10 - E11.51) 08/22/2024 Tinea unguium (ICD-10 - B35.1) 11/14/2024 Type 2 diabetes mellitus with diabetic peripheral angiopathy without gangrene (ICD-10 - E11.51) 11/14/2024 Tinea unguium (ICD-10 - B35.1) 03/21/2024 Pain in right toe(s) (ICD-10 - M79.674) 08/22/2024 Pain in right toe(s) (ICD-10 - M79.674) 11/14/2024 Pain in right toe(s) (ICD-10 - M79.674) 06/07/2024 Pain in right toe(s) (ICD-10 - M79.674) 01/07/2024 Tinea unguium (ICD-10 - B35.1) 01/07/2024 Pain in right toe(s) (ICD-10 - M79.674) 03/21/2024 Pain in left toe(s) (ICD-10 - M79.675) 06/07/2024 Pain in left toe(s) (ICD-10 - M79.675) 08/22/2024 Pain in left toe(s) (ICD-10 - M79.675) 11/14/2024 Pain in left toe(s) (ICD-10 - M79.675) 08/22/2024 Other hammer toe(s) (acquired), right foot (ICD-10 - M20.41) Response to treatment,Impro vement 01/07/2024 Pain in left toe(s) (ICD-10 - M79.675) 08/22/2024 Other hammer toe(s) (acquired), left foot (ICD-10 - M20.42) Response to treatment,Impro vement Plan Of Treatment Pending Test Test Name Order Date Hemoglobin A1c 09/03/2015 50637-XJDMQNJ NAIL, 6 OR MORE 12/06/2015 89688-KDQYBVK NAIL, 6 OR MORE 09/03/2015 52379-VUCJHMY NAIL, 6 OR MORE 03/10/2016 09151-VMGHHPU NAIL, 6 OR MORE 06/09/2016 90704-UQBKKEQ NAIL, 6 OR MORE 09/01/2016 76344-BFZVEKF NAIL, 6 OR MORE 11/24/2016 78344-DLJNGXX NAIL, 6 OR MORE 04/18/2021 44739-KBMMMJX NAIL, 6 OR MORE 07/04/2021 95016-IEFTCFH NAIL, 6 OR MORE 09/16/2021 19191-RUMVYDZ NAIL, 6 OR MORE 02/16/2017 59223-MXABOBF NAIL, 6 OR MORE 04/27/2017 52204-QNDERYK NAIL, 6 OR MORE 07/20/2017 81912-HXJNBZB NAIL, 6 OR MORE 09/28/2017 29203-XQCZEOT NAIL, 6 OR MORE 11/30/2017 30216-VSGZPJT NAIL, 6 OR MORE 02/15/2018 16632-LVJHWIV NAIL, 6 OR MORE 05/10/2018 34497-WPMFVSV NAIL, 6 OR MORE 08/19/2018 31632-WEPISJF NAIL, 6 OR MORE 11/04/2018 39540-OKVYPMX NAIL, 6 OR MORE 01/24/2019 22643-DSTMHHM NAIL, 6 OR MORE 06/13/2019 52762-ABDOTSR NAIL, 6 OR MORE 08/22/2019 70732-LFVAIUB NAIL, 6 OR MORE 10/31/2019 68230-FVDMJMH NAIL, 6 OR MORE 01/09/2020 42527-WTHIGTR NAIL, 6 OR MORE 03/19/2020 88031-FGAVNQL NAIL, 6 OR MORE 06/21/2020 87301-LDAOFSJ NAIL, 6 OR MORE 08/30/2020 02868-ZIBZPUR NAIL, 6 OR MORE 11/05/2020 23555-JSVILTM NAIL, 6 OR MORE 01/10/2021 99290-ESZHLCT NAIL, 6 OR MORE 11/25/2021 72876-BOUSWJZ NAIL, 6 OR MORE 01/30/2022 83268-AYTLJPO NAIL, 6 OR MORE 04/14/2022 65284-NWCOTRG NAIL, 6 OR MORE 08/07/2022 67457-EUHBRXO NAIL, 6 OR MORE 10/16/2022 10237-UYHMERZ NAIL, 6 OR MORE 01/05/2023 02699-HAMBQGC NAIL, 6 OR MORE 03/16/2023 07829-BUBLHYT NAIL, 6 OR MORE 05/25/2023 50883-ADPWRTX NAIL, 6 OR MORE 08/06/2023 48551-SNUPPUB NAIL, 6 OR MORE 10/19/2023 82973-YJQWBBD NAIL, 6 OR MORE 03/21/2024 09316-VYXPVEY NAIL, 6 OR MORE 06/07/2024 48412-DBCOIJO NAIL, 6 OR MORE 08/22/2024 29782-MBNIFGM NAIL, 6 OR MORE 11/14/2024 48864-Vcewbefu Plate 01/10/2021 05103-Mbbxsacj Plate 11/24/2016 92589-Viqrozlp Plate 09/01/2016 24771-Mwysqegv Plate 06/09/2016 55599-Rxcqoegc Plate 03/10/2016 57050-Trbjdeni Plate 09/03/2015 80761-Yzfzmehm Plate 12/06/2015 27369-JOGA SKIN LESIONS, OVER 4 11/15/19 25 06163-IFSD SKIN LESIONS, OVER 4 08/22/19 25 28812-CFTC SKIN LESIONS, OVER 4 06/07/20 24 64121-FLIN SKIN LESIONS, OVER 4 10/19/19 24 91073-PMEL SKIN LESIONS, OVER 4 03/21/20 24 76509-XNQG SKIN LESIONS, OVER 4 08/06/19 24 46282-CKDY SKIN LESIONS, OVER 4 05/25/20 23 94174-XLLD SKIN LESIONS, OVER 4 03/16/20 23 42845-RGZV SKIN LESIONS, 2 TO 4 01/06/20 23 75853-XFRW SKIN LESIONS, 2 TO 4 10/17/19 23 94017-ARYN SKIN LESIONS, 2 TO 4 08/07/19 23 49176-XOSG SKIN LESIONS, 2 TO 4 04/14/20 22 52335-KLTM SKIN LESIONS, 2 TO 4 01/31/20 22 38450-WIBO SKIN LESIONS, 2 TO 4 11/26/19 22 07421-CGXX SKIN LESIONS, 2 TO 4 09/16/19 22 80469-VUTR SKIN LESIONS, 2 TO 4 07/04/20 21 Next Appt Details Provider Name:Reese Garcia , 02/16/2025 01:45:00 PM, [address] [facility] [address] [facility], [place], [address], Insurance Providers Payer Name Payer Address Payer Phone Subscriber Number Group Number Insured Name Patient Relationship to Insured Coverage Start Date Coverage End Date Medicare [facility] [address] [facility] [address] [id number] Genie Escalera Self - patient is the insured [address] [place] [address] [place] [phone] [id number] Genie Escalera Self - patient is the insured Medical (General) History Medical History History ICD Code Arthritis Asthma Back,Hip,and Knee pain Cancer Cataracts Diabetes mellitus type 2 Gall bladder problems High blood pressure Polio chronic sinusitis Measles Mumps Chicken pox Transfusions Reflux Surgical History Surgery Date(Month/Year) gall bladder 1967 breast surgery hysterectomy bladder suspension vein surgery (LT leg) [place] [facility] [place] surgery- trigger finger right 2020 sx underarm 12/15/21 Hospitalization History Reason Date(Month/[place] [facility] [place]- not tested- said asthma and allergies [place] [facility] [place] lesion found in samuel ngs 09/13/2017 pneumonia 11/24-11/26/15
--- OUTSIDE RECORDS SUMMARY | 2024-11-22 11:18 | XMS_ITS | Patient Health Record ---
Author Organization [facility] Address [address] [place] [address] Care Team Providers Care Chemical Packager Name Role Phone Corrine Spangler MD Primary Care Provider Nishant Amaro [phone] Allergies Allergen (clinical drug ingredient) Drug/Non Drug [...] canagliflozin Invokana Unknown Drug Allergy Act chey Simvastatin Unknown Drug Allergy Activ e pravastatin Pravastatin Sodium Unknown Drug Allergy Active metformin Metformin HCl Unknown Drug Allergy Act chey Levaquin Unknown Drug Allergy Active hydrochlorothiazide Hydrochlorothiazide Unknown Drug Aller gy Active Reason For Referral No Information Medications Medication [...] Active hydroCHLOROthiazide 25 MG 1 tablet in e morning Orally Once a day Active [...] tablet Orall y Once a day Active Immunizations Vaccine Route Administration Date Status Comme nts Flu vaccine no Preserv 3 and > Unknown 04/27/2017 Admin istered Problems Problem Type SNOMED Code ICD Code Onset Dates Problem Status W/U Status Risk Notes Problem 32725723 Pancreatic cyst (K86.2) Active confirmed Problem 81255346 Constipation, unspecified constipation type (K59.00) Active confirmed Problem 197272110 Abdominal pain, left lower quadrant (R10.32) Active confirmed Problem 32707505 Irritable bowel syndrome, unspecified type (K58.9) Active confirmed Problem 90074014 Hypertension, unspecified type (I10) Active confirmed Plan Of Treatment No Information Insurance Providers Payer Name Payer Address Payer Phone Subscriber Number Group Number Insured Name Patient Relationship to Insured Coverage Start Date Coverage End Date MEDICARE OF [place] [address] [place] [address] [id number] HOOD CASTILLO Self - patient is the insured [employer] [address] [place] [address] [phone] [id number] HOOD CASTILLO Self - patient is the insured Medical (General) History Medical History History ICD Code Chronic diarrhea/IBS-colonos copy biopsies negative for colitis in 1994 and labs neg. for celiac disease in 2009 Colon polyps-tubular adenoma s removed in 1999 and 2009-colonoscopy was negative in 2004 except for AVM's NIDDM Hyperlipidemia Hypertension Breast [id number] lumpectomy with XRT UTI's Denies CO,CVA,renal disease Bronchitis Pancreatic cysts seen on MRI in 09/[address] scan in November of 2022 Asthma Surgical History Surgery Date(Month/Year) Cholecystectomy JOANA Rectovaginal fistula repair in 1994 Bladder suspension Veins in LE's Breast cancer as above
--- OUTSIDE RECORDS SUMMARY | 2024-11-22 11:19 | XMS_ITS ---
[facility] Address [address] [place] [address] Care Team Providers Care Compliance Professional Name Role Phone Corrine Spangler MD Primary Care Provider Reese Mancilla Unavailable [phone] Allergies Allergen (clinical drug ingredient) Drug/Non Drug [...] Active Simvastatin diarrhea Drug Allergy Activ e REASON FOR VISIT At Risk Footcare, Painful Nail(s) aggrevated by shoes and causing difficulty standing/walking, Toe Irritation Medications Medication SIG (Take, Route, Frequency, Duration) Notes Start Date End Date Status Calcium 1 tab Oral for 14 days Not-Taking Losartan Potassium 100 MG Orally Not-Taking carBAMazepine Not-Ta christian Januvia 100 MG Orally Not-T aking ProAir HFA PRN Not-Takin g Prolia 60 MG/ML as directed Subcutaneous 2 TIMES YEARLY Not-Taking aspirin 81 mg daily Not-Ta christian Trulicity 3 MG/0.5ML as directed Subcutaneous Not-Taking Fish Oil 1360 MG 1 capsule Orally Once a day for 30 day(s) Not-Taking Montelukast Sodium 10 MG 1 tablet Orally Once a day Not-Taking Turmeric Curcumin 500 MG as directed Orally Active Vitamin E Active Vitamin C Active Vitamin D 25 MCG (1000 UT) 1 tablet Orally Once a day for 30 day(s) Active Vitamin B 12 100 MCG as directed Orally Active Probiotic - as directed Orally Active Methenamine Hippurate 1 GM 1 tablet Orally Twice a day Active Omeprazole 20 MG 1 capsule 30 minutes before morning meal Orally Once a day Active glipiZIDE XL 10 MG 1 tablets Orally Twice daily Active Magnesium 500 MG 1 tablet with a meal Orally Once a day for 30 day(s) Active dilTIAZem HCl 120 MG 2 tablets Orally Active Flovent HFA PRN Active Albuterol Active Ozempic Active Townsend 3 Active Social History Tobacco Use: Social History Observation [...] ast year? No Points 0 Interpretation Negative Vital Signs Height 5 ft 1 in in 08/22/2024 Weight 144 lbs 08/22/2024 BMI 27.21 kg/m2 08/22/2024 Blood pressure systolic 130 mm Hg 08/22/19 25 Blood pressure diastolic 70 mm Hg 025 Procedures Procedure Date Ordered Date Performed Result Body Sit e 23778-IJRWUJW NAIL, 6 OR MORE 08/22/2024 N/A 10099-UCQR SKIN LESIONS, OVER 4 08/22/2024 N/A Encounters Encounter Location Date Provider Diagnosis [facility] [address] [place] [address] 08/22/2024 Reese Garcia Type 2 diabetes mellitus with diabetic peripheral angiopathy without gangrene E11.51 ; Tinea unguium B35.1 ; Pain in right toe(s) M79.674 ; Pain in left toe(s) M79.675 ; Other hammer toe(s) (acquired), right foot M20.41 and Other hammer toe(s) (acquired), left foot M20.42 Assessments Encounter Date Diagnosis (ICD Code) Assessment Notes Treatment Notes Treatment Clinical Notes Section Notes 08/22/2024 Type 2 diabetes mellitus with diabetic peripheral angiopathy without gangrene (ICD-10 - E11.51) 08/22/2024 Tinea unguium (ICD-10 - B35.1) 08/22/2024 Pain in right toe(s) (ICD-10 - M79.674) 08/22/2024 Pain in left toe(s) (ICD-10 - M79.675) 08/22/2024 Other hammer toe(s) (acquired), right foot (ICD-10 - M20.41) Response to treatment,Impro vement 08/22/2024 Other hammer toe(s) (acquired), left foot (ICD-10 - M20.42) Response to treatment,Impro vement Plan Of Treatment Pending Test Test Name Order Date [id number] NAIL, 6 OR MORE 08/22/2024 33470-[id number] SKIN LESIONS, OVER 4 08/22/19 25 Next Appt Details Follow Up: prn, Reason: Provider Name:Reese Sugar TaylorJose , 02/16/2025 01:45:00 PM, [address] [place] [address], [id number], Procedure Notes * Category Sub-Category Detail Notes Debride Nail 6-10 Nail debridement Due to the cl inical pathology outlined in the exam findings, performance of this nail treatment is medically necessary as its management by an unskilled/untrained nonprofessional would put this patients foot and overall health at risk. Therefore, debridement to affected nail(s), as described in exam ( TA, T1, T3, T4, T5, T6, T9 ), was performed exclusively by the physician of record to reduce/remove overall nail length, girth, thickness, subungual debris, and necrotic tissue, by manual and/or electrical means through the use of a nail nipper and/or dremel-type watch crystal edge grinder, to a more viable healthy nail plate or bed tissue 6-10 nails in total. Silver nitrate was used for any petechial bleeding as necessary. Definitive antifungal treatment options, both pharmaceutical and surgical, have been reviewed and discussed with the patient. The patient solely prefers the use of intermittent/as needed professional debridement services for their nail condition and understands the need for additional periodic treatments to maintain effectiveness in symptomatic relief - 91322 Keratoma Treatment Parring or Cutting o f Benign Hyperkeratotic Lesion(s) (-57) More than 4 Lesions - Due to the at risk nature of the patients medical condition as documented in the exam findings, performance of this keratoderma treatment is medically necessary as its management by an unskilled/untrained nonprofessional would put this patients foot and overall health at risk. Therefore, the benign hyperkeratotic lesions, ( 6) in total, locations as stated and described in the exam ( Plantar, T1, Dorsal, PIPJ, T4, Plantar, T6, Dorsal, PIPJ, T9,Plantar, Heel(s), B/L ), were pared, and/or cut utilizing a sterile 15 blade, tissue nippers, and/or power dremel instrumentation by the physician of record - 99756, Q8 Progress Notes * MEGANTree MORRISille EDOB:1 09/27/1939 (84 yo F)Acc No.[id number]:08/22/2024 Progress Note Patient:?James RAO Provider:?Reese Garcia DPM :1940???Age:84 Y???Sex:Female D ate:08/22/2024 Address:[address] [place], [place] [id number] Pcp:Corrine Spangler MD Subjective: * Chief Complaints: * ???At Risk FootcarePainful N ail(s) aggrevated by shoes and causing difficulty standing/walkingToe Irritation * HPI: ???At Risk footcare:?Pt States Last PCP Visit:?Date?06/06/2024 ???Toe pain:?Treatments:?Rx shoes .? * ROS:?General/Constitutional:?Nausea?denies.?Vomiting?denies.?Hunger Thirst?denies.?Loss appetite?denies.?Chills?denies.?Fatigue?denies.?Fever?denies.?Night Sweats?denies.?Unexplained weight loss?denies.?Ophthalmologic:?Blurred vision?denies.?Red eye?denies.?HEENTM:?Dentures?denies.?Dizziness?denies.?Glasses/contacts?admits.?Retinopathy?den ies.?Blurred/double vision?denies.?TMJ?denies.?Discharge/drainage?denies.?Implants?denies.?Hard of hearing denies.?Difficulty chewing/swallowing/speaking?denies.?Nose bleeds?denies.?Sore mouth?denies.?Swollen glands?denies.?Respiratory:?On O xygen?denies.?Pneumonia/pleurisy?denies.?Bronchitis?denies.?Emphysema?denies.?Co ughing?denies.?Cough blood?denies.?Shortness of breath?denies.?Wheezing?denies.?Cardiovascular:?Pacemaker?denies.?MVP?denies.?WPW?denies.?CHF?denies.?Heart attack?denies.?Septal defect?denies.?Rapid beat?denies.?Chest pain ?denies.?Atrial Fib.?denies.?Murmur/Palpitations?denies.?Gastrointestinal:?Hemorrhoids?denies.?Stomach/Abdominal pain?denies.?Dark blood stool?denies.?Irritable bowel ?denies.?Constipation?denies.?Diarrhea?denies.?Vomiting?denies.?Hematology:?Swelling?denies.?Bruising?admits, on aspirin.?Bleeding problem?admits, on anticoagulants.?Genitourinary:?Blood urine?denies.?Frequent/Painfu/urination/bladder control?denies.?Kidney stones?denies.?Infection (UTI)?denies.?Nephropathy?denies.?Musculoskeletal:?Hammertoes?admits.?Bunions?denies.?Scoliosis/kyphosis?denies.?Muscle cramps / walking?denies.?Generalized aches and pains?denies.?Weakness?denies.?Integ.:?Hickey?denies.?Scars?denies.?Corns/calluses?admits.?Ingrown nails?admits.?Painful nails?admits.?Rashes?denies.?Neurologic:?Difficulty sleeping?admits.?Bipolar?denies.?Brain disorder?denies.?Balance t rouble?admits.?Confusion?denies.?Fainting/blackouts?denies.?Headache?denies.?José mors?denies.? * Medical History:? * Surgical History:?gall bladd er 1967breast surgery hysterectomy bladder suspension vein surgery (LT leg) right carpal tunnel [facility] [place] surgery- trigger finger right 1sx underarm 12/15/21 * Hospitalization/Major Diagno stic Procedure:?pneumonia 11/24-[place] [place] lesion found in lungs [place] [place]- not tested- said asthma and allergies 10/24/2019 * Family History:?Mother: dece ased.?Father: .?Siblings: diagnosed with Unspecified essential hypertension, Diabetic - NIDDM.?Children: diagnosed with Other malignant neoplasm of unspecified site, Diabetic - NIDDM, Unspecified essential hypertension.? * Social History:?Tobacco Use:?Tobacco use other than smoking?Are you an other tobacco user??No ?Tobacco Control (Standard)?Tobacco use:?Nonsmoker ?Additional Findings: Tobacco non-user?Current nonsmoker ???Drugs/Alcohol:?Drugs?Have you used drugs other than those for medical reasons in the past 12 months??No ???Miscellaneous:?Caffeine: yes, decaff, 1-2 cups per day. ?Children: yes. ?Exercise: no. ?Marital status: . 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 ???Drug/Alcohol:?AUDIT-C (Standard)?Did you have a drink containing alcohol in the past year??No ?Points?0 ?Interpretation?Negative * Medications:?TakingOzempic O hudson 3 Albuterol dilTIAZem HCl 120 MG Tablet 2 tablets Orally Flovent HFA , Notes to Pharmacist: PRNglipiZIDE XL 10 MG Tablet Extended Release 24 Hour 1 tablets Orally Twice daily Magnesium 500 MG Tablet 1 tablet with a meal Orally Once a day Methenamine Hippurate 1 GM Tablet 1 tablet Orally Twice a day Omeprazole 20 MG Capsule Delayed Release 1 capsule 30 minutes before morning meal Orally Once a day Probiotic - Capsule as directed Orally Turmeric Curcumin 500 MG Capsule as directed Orally Vitamin B 12 100 MCG Lozenge as directed Orally Vitamin C Vitamin D 25 MCG (1000 UT) Tablet 1 tablet Orally Once a day Vitamin E Taking Ozempic Taking Townsend 3 Taking Albuterol Taking dilTIAZem HCl 120 MG Tablet 2 tablets Orally Taking Flovent HFA , Notes to Pharmacist: PRNTaking glipiZIDE XL 10 MG Tablet Extended Release 24 Hour 1 tablets Orally Twice daily Taking Magnesium 500 MG Tablet 1 tablet with a meal Orally Once a day Taking Methenamine Hippurate 1 GM Tablet 1 tablet Orally Twice a day Taking Omeprazole 20 MG Capsule Delayed Release 1 capsule 30 minutes before morning meal Orally Once a day Taking Probiotic - Capsule as directed Orally Taking Turmeric Curcumin 500 MG Capsule as directed Orally Taking Vitamin B 12 100 MCG Lozenge as directed Orally Taking Vitamin C Taking Vitamin D 25 MCG (1000 UT) Tablet 1 tablet Orally Once a day Taking Vitamin E Not-Taking/PRNMontelukast Sodium 10 MG Tablet 1 tablet Orally Once a day Trulicity 3 MG/0.5ML Solution Pen-injector as directed Subcutaneous Fish Oil 1360 MG Capsule 1 capsule Orally Once a day Prolia 60 MG/ML Solution Prefilled Syringe as directed Subcutaneous , Notes to Pharmacist: 2 TIMES YEARLYaspirin 81 mg daily Calcium 1 tab Oral Losartan Potassium 100 MG Tablet Orally ProAir HFA , Notes to Pharmacist: PRNcarBAMazepine Januvia 100 MG Tablet Orally Medication List reviewed and reconciled with the patientNot-Taking/PRN Montelukast Sodium 10 MG Tablet 1 tablet Orally Once a day Not-Taking/PRN Trulicity 3 MG/0.5ML Solution Pen-injector as directed Subcutaneous Not-Taking/PRN Fish Oil 1360 MG Capsule 1 capsule Orally Once a day Not-Taking/PRN Prolia 60 MG/ML Solution Prefilled Syringe as directed Subcutaneous , Notes to Pharmacist: 2 TIMES YEARLYNot-Taking/PRN aspirin 81 mg daily Not- Taking/PRN Calcium 1 tab Oral Not-Taking/PRN Losartan Potassium 100 MG Tablet Orally Not-Taking/PRN ProAir HFA , Notes to Pharmacist: PRNNot-Taking/PRN carBAMazepine Not-Taking/PRN Januvia 100 MG Tablet Orally Medication List reviewed and reconciled with the patient * Allergies:?Hydrochlorothiazi de: diarrheaPravastatin Sodium: diarrheaSimvastatin: diarrheaMetformin HCl: diarrheaCiprofloxacin: diarrheaLevofloxacin: diarrheaFosamax: diarrheayes[Allergies Verified] Objective: * Vitals:?Ht: 5 ft 1 in, Wt:14 4, BMI: 27.21, Shoe size:8.5, BP:130/70mm Hg, BS:215, Ht-cm: 154.94 cm, Wt-k.32 kg. * ???Past Orders: ???Lab:HEMOGLOBIN A1C (GLYCO HEMOGLOBIN) (Order Date - 06/02/2024) (Collection Date & Time - 08/22/2024 11:41 AM) ? Value Reference Range ?HEMOGLOBIN A1C % (HH) 6.5 * Examination: ???Ophthalmology Referral: ?DIABETES EYE EXAM?Procedure Performed:?Yes ?Date of Exam Performed?05/03/2024 ?Diabetic Retinopathy Screening:?No ?Findings of Diabetic Eye Exam:?no retinopathy?Vascular: ?DP PULSES (B):? 1/4, B/L.?PT PULSES (B):? 0/4, B/L.?CAPILLARY FILL TIME:? delayed, all digits, B/L.?TROPHIC CONDITION-TEXTURE/ELASTICITY/TURGOR/HAIR GROWTH (B):? decreased,?fragile, thin, shiny skin, with sparse to absent hair growth, B/L.?TEMPERTURE GRADIENT (C):? decreased, cool to cool, proximal to distal, B/L.?PIGMENTATION:? mottled, B/L.?EDEMA (C):?absent, B/L.?CLAUDICATION (C):?denies, B/L.?REST PAIN:?denies, B/L.?Nails: ?NAILS are:?Elongated, overgrown, dystrophic, lytic, greater than 3mm thick, discolored and friable with crumbly malodorous subungual debris, with pain on palpation, TA, T1, T3, T4, T5, T6, T9, all other nails not described with characteristics as possessing mycosis are elongated, overgrown, and dystrophic.?Dermatologic: ?SKIN FINDINGS:? Skin exam reveals Keratotic lesion(s) located at, Plantar, T1, Dorsal, PIPJ, T4, Plantar, T6, Dorsal, PIPJ, T9,Plantar, Heel(s), B/L.?Orthopedic: ?DIGITAL DEFORMITIES:?Digital contracture, PIPJ, 2-5 B/L, incompl-reducible to push-up test, no over, nor underlapping.?FOOTWEAR:?good condition, exhibit proper fit and accommodation for pedal deformities. OT were inspected and noted to be worn, but in good condition giving proper support at the present time.?Neurological: ?SENSORY:?Neurological exam reveals intact sensorium, pain sensation normal, vibration sensation intact, pinprick sensation is normal in the lower extremities, 5.07 monofilament test performed at plantar aspects of 5 varied sites per foot shows sensation, normal, B/L, Pt denies, anesthesia, burning, paresthesia, tingling, B/L.?General Examination: ?GENERAL APPEARANCE:?Reveals a pleasant, alert, well nourished, well developed, well hydrated individual, who demonstrates proper attention to hygene/body habitus, and is in no acute distress.?ORIENTED:?person, place, and time.?FOOT EXAM:?Lower Extremity Neurological Exam performed:?Yes ?Visual exam of foot performed:?Yes ?Date?08/22/2024 ?Footwear Evaluation?Footwear Evaluation performed:?Yes??? Assessment: * Assessment: 1.?Type 2 diabetes mellitus with diabetic peripheral angiopathy without gangrene - E11.51 (Primary)???2.?Tinea unguium - B35.1???3.?Pain in right toe(s) - M79.674???4.?Pain in left toe(s) - M79.675???5.?Other hammer toe(s) (acquired), right foot - M20.41???Specify :Chronic problem, Stable (1=3,2=4)???Notes :Response to treatment,Improvement???6.?Other hammer toe(s) (acquired), left foot - M20.42???Specify :Chronic problem, Stable (1=3,2=4)???Notes :Response to treatment,Improvement??? Plan: * Treatment: 2.?Tinea unguium?Procedure: 56160-[id number] NAIL, 6 OR MORE * Procedures:?Debride Nail 6-10:?Nail debridement?Due to the clinical pathology outlined in the exam findings, performance of this nail treatment is medically necessary as its management by an unskilled/untrained nonprofessional would put this patients foot and overall health at risk. Therefore, debridement to affected nail(s), as described in exam (?TA,?T1,?T3,?T4,?T5,?T6,?T9?), was performed exclusively by the physician of record to reduce/remove overall nail length, girth, thickness, subungual debris, and necrotic tissue, by manual and/or electrical means through the use of a nail nipper and/or dremel-type watch crystal edge grinder, to a more viable healthy nail plate or bed tissue 6-10 nails in total. Silver nitrate was used for any petechial bleeding as necessary. Definitive antifungal treatment options, both pharmaceutical and surgical, have been reviewed and discussed with the patient. The patient solely prefers the use of intermittent/as needed professional debridement services for their nail condition and understands the need for additional periodic treatments to maintain effectiveness in symptomatic relief - 49872.?Keratoma Treatment:?Parring or Cutting of Benign Hyperkeratotic Lesion(s)?(-57) More than 4 Lesions - Due to the at risk nature of the patients medical condition as documented in the exam findings, performance of this keratoderma treatment is medically necessary as its management by an unskilled/untrained nonprofessional would put this patients foot and overall health at risk. Therefore, the benign hyperkeratotic lesions, ( 6) in total, locations as stated and described in the exam ( ?Plantar,?T1,?Dorsal,?PIPJ,?T4,?Plantar,?T6,?Dorsal,?PIPJ,?T9,Plantar,?Heel(s),? B/L?) , were pared, and/or cut utilizing a sterile 15 blade, tissue nippers, and/or power dremel instrumentation by the physician of record - 18604, Q8.? * Procedure Codes:?93436 DEBRI DE NAIL, 6 OR MORE, Modifiers: XS 49335 TRIM SKIN LESIONS, OVER 4, Modifiers: XS , Q8 * Preventive Medicine:? ??Counseling:?Discussion:?-13: Office or other outpatient visit for the evaluation and management of an established patient, which required a medically appropriate history and/or examination and LOW level of DECISION MAKING for: 1 STABLE ACUTE UNCOMPLICATED PROBLEM, 2 OR MORE MINOR PROBLEMS, OR 1 STABLE CHRONIC PROBLEM, THAT POSE(S) A LOW RISK FOR MORBIDITY/MORTALITY. The visit on the day of the encounter encompassed interpreting the data and educating the patient as to the nature of their condition, treatment options available according to their individual PMH, meds, allergies, and overall health/living conditions, as well as any potential risks or complications that may occur from a failure to adhere to, and participate in, the recommended course of therapy. The discussion included a complete verbal, and/or written explanation of the examination results, any x-rays taken, the proposed diagnosis, and outline of the treatment plan. A schedule for future care needs was also explained. The patient verbalized an understanding of the instructions at this time and agreed to be an active participant in their treatment. If the patient should think of any questions or concerns after the visit, I have encouraged the patient to call the office.?Shoe Gear Counseling:?A thorough inspection of the patients Rxed shoegear and inserts was performed and findings communicated. We reviewed the many important medical advantages for adhering to regularly wearing these shoe and insert accomidative devices daily as well as reviewed the fact that a failure in accepting these recommedations may be deleterious, unable to prevent, and disadvantagely result in, many pedal complications such as skin irritation, skin ulceration, infection, and even loss of toe/foot/leg/or even their life. Time was also spent reviewing the proper footcare techniques including daily skin moisturization, daily foot inspection for any interruption in skin integrity, open lesions, or sign of infection such as redness/malodor/drainage/swelling as well as daily shoe inspection for the presence of internal foreign bodies and shoe as well as insert wear. Patient questions re: shoes, inserts, and self foot inspections were answered to their satisfaction as the patient verbally confirmed a full understanding of the above information.? ??Screening/Special Tests:?Fall Risk?Screening:?No falls in the past year ?FALLS: Screening for Future Fall Risk?Have you had any falls with injury in the past year??No * Follow Up:?prn * Images: * Sign off status: Completed true * Provider:?Reese Garcia DPM Date:?2024 Generated for Mary quezada/Rupa/eTgavinosmitting on:?11/22/2024 11:19 AM EDT History and Physical Notes * HPI (History of Present Illness) Category Sub-Category Detail Notes Category Not es Toe pain Treatments: Rx shoes At Risk footcare Pt States Last PCP Visit: Date: 4 Examination Category Sub-Category Detail Notes Category Not es Neurological SENSORY: Neurological exa m reveals intact sensorium, pain sensation normal, vibration sensation intact, pinprick sensation is normal in the lower extremities, 5.07 monofilament test performed at plantar aspects of 5 varied sites per foot shows sensation, normal, B/L, Pt denies, anesthesia, burning, paresthesia, tingling, B/L Dermatologic SKIN FINDINGS: Skin exam reveal s Keratotic lesion(s) located at, Plantar, T1, Dorsal, PIPJ, T4, Plantar, T6, Dorsal, PIPJ, T9,Plantar, Heel(s), B/L Orthopedic FOOTWEAR EVALUATION: good condit ion, exhibit proper fit and accommodation for pedal deformities. OT were inspected and noted to be worn, but in good condition giving proper support at the present time DIGITAL DEFORMITIES: Digital contracture , PIPJ, 2-5 B/L, incompl-reducible to push-up test, no over, nor underlapping General Examination GENERAL APPEARANCE: Reveals a pleasant, alert, well nourished, well developed, well hydrated individual, who demonstrates proper attention to hygene/body habitus, and is in no acute distress FOOT EXAM: Lower Extremity Neurological Exa m performed:: Yes Visual exam of foot performed:: Yes Date: 08/22/2024 ORIENTED: person, place, and t huy Footwear Evaluation Footwear Evaluation performe d:: Yes Ophthalmology Referral DIABETES EYE EXAM Procedure Perform ed:: Yes ?Date of Exam Performed: 05/03/2024 Diabetic Retinopathy Screening:: No Findings of Diabetic Eye Exam:: no retin opathy Vascular DP PULSES (B): 1/4, B/L PT PULSES (B): 0/4, B/L CAPILLARY FILL TIME: delayed, all digits , B/L TEMPERTURE GRADIENT (C): decreased, cool to cool, proximal to distal, B/L TROPHIC CONDITION-TEXTURE/ELASTICITY/TURGOR/HAIR GROWTH (B): decreased, fragile, thin, shiny skin, wi th sparse to absent hair growth, B/L EDEMA (C): absent, B/L CLAUDICATION (C): denies, B/L REST PAIN: denies, B/L PIGMENTATION: mottled, B/L Nails NAILS are: Elongated, overg rown, dystrophic, lytic, greater than 3mm thick, discolored and friable with crumbly malodorous subungual debris, with pain on palpation, TA, T1, T3, T4, T5, T6, T9, all other nails not described with characteristics as possessing mycosis are elongated, overgrown, and dystrophic
--- OUTSIDE RECORDS SUMMARY | 2024-11-22 11:19 | XMS_ITS ---
Author Organization [facility] Address [address] [place] [address] Care Team Providers Care Air Chief Marshal Name Role Phone Corrine Spangler MD Primary Care Provider Reese Mancilla Unavailable [phone] Allergies Allergen (clinical drug ingredient) Drug/Non Drug [...] Nail(s) aggrevated by shoes and causing difficulty standing/walking Medications Medication SIG (Take, Route, Frequency, Duration) Notes Start Date End Date Status Montelukast Sodium 10 MG 1 tablet Orally Once a day Not-Taking Trulicity 3 MG/0.5ML as directed Subcutaneous Not-Taking Vitamin C Active Vitamin D 25 MCG (1000 UT) 1 tablet Orally Once a day for 30 day(s) Active Vitamin E Active Methenamine Hippurate 1 GM 1 tablet Orally Twice a day Active Turmeric Curcumin 500 MG as directed Orally Active Vitamin B 12 100 MCG as directed Orally Active Omeprazole 20 MG 1 capsule 30 minutes before morning meal Orally Once a day Active Probiotic - as directed Orally Active Magnesium 500 MG 1 tablet with a meal Orally Once a day for 30 day(s) Active Flovent HFA PRN Active glipiZIDE XL 10 MG 1 tablets Orally Twice daily Active Albuterol Active dilTIAZem HCl 120 MG 2 tablets Orally Active Trulicity 1.5 MG/0.5ML Subcutaneous for 84 Days Active Ozempic Active Fluticasone Propionate HFA 220 MCG/ACT Inhalation for 60 Days Active Coventry 3 Active Januvia 100 MG Orally Not-T aking Losartan Potassium 100 MG Orally Not-Taking ProAir HFA PRN Not-Takin g aspirin 81 mg daily Not-Ta christian Calcium 1 tab Oral for 14 days Not-Taking carBAMazepine Not-Ta christian Fish Oil 1360 MG 1 capsule Orally Once a day for 30 day(s) Not-Taking Prolia 60 MG/ML as directed Subcutaneous 2 TIMES YEARLY Not-Taking Social History Tobacco Use: Social History Observation [...] Signs Height 5 ft 1 in in 11/14/2024 Weight 144 lbs 11/14/2024 BMI 27.21 kg/m2 11/14/2024 Blood pressure systolic 120 mm Hg 11/15/19 25 Blood pressure diastolic 60 mm Hg 025 Procedures Procedure Date Ordered Date Performed Result Body Sit e 77251-UNLDVYG NAIL, 6 OR MORE 11/14/2024 N/A 86200-DRLL SKIN LESIONS, OVER 4 11/14/2024 N/A Encounters Encounter Location Date Provider Diagnosis [facility] [place] [address] [place] [address] 11/14/2024 Reese Garcia Type 2 diabetes mellitus with diabetic peripheral angiopathy without gangrene E11.51 ; Tinea unguium B35.1 ; Pain in right toe(s) M79.674 and Pain in left toe(s) M79.675 Assessments Encounter Date Diagnosis (ICD Code) Assessment Notes Treatment Notes Treatment Clinical Notes Section Notes 11/14/2024 Type 2 diabetes mellitus with diabetic peripheral angiopathy without gangrene (ICD-10 - E11.51) 11/14/2024 Tinea unguium (ICD-10 - B35.1) 11/14/2024 Pain in right toe(s) (ICD-10 - M79.674) 11/14/2024 Pain in left toe(s) (ICD-10 - M79.675) Plan Of Treatment Pending Test Test Name Order Date 37240-AZSGNPJ NAIL, 6 OR MORE 11/14/2024 59463-ENFP SKIN LESIONS, OVER 4 11/15/19 25 Next Appt Details Follow Up: prn, Reason: Provider Name:Reese Garcia , 02/16/2025 01:45:00 PM, [address] [place] [address], [address], Procedure Notes * Category Sub-Category Detail Notes [...] use of a nail nipper and/or dremel-type hull grinder, to a more viable healthy nail [...] to maintain effectiveness in symptomatic relief - Keratoma Treatment Parring or Cutting o f [...] instrumentation by the physician of record - 07884, Q8 Progress Notes * Genie RAO EDOB:1 09/27/1939 (84 yo F)Acc No.[id number]:11/14/2024 Progress Note Patient:?James RAO Provider:?Reese Garcia DPM :1940???Age:84 Y???Sex:Female D ate:11/14/2024 Address:[address] [place], [place] [id number] Pcp:Corrine Spangler MD Subjective: * Chief Complaints: * ???At Risk FootcarePainful N ail(s) aggrevated by shoes and causing difficulty standing/walking * HPI: ???At Risk footcare:?Pt States Last PCP Visit:?Date?06/06/2024 States has an appt with PCP soon - 11/22 * ROS:?General/Constitutional:?Nausea?denies.?Vomiting?denies.?Hunger Thirst?denies.?Loss appetite?denies.?Chills?denies.?Fatigue?denies.?Fever?denies.?Night Sweats?denies.?Unexplained weight loss?denies.?Ophthalmologic:?Blurred [...] vein surgery (LT leg) right carpal tunnel [facility] 05/04/2018hand surgery- trigger finger right 1sx underarm 12/15/21 * Hospitalization/Major Diagno stic Procedure:?pneumonia 11/24-11/26/15[facility] ER for coughing- lesion found in lungs 09/13/2017[facility] ER-Coronavirus symptoms- not tested- said asthma and allergies 10/24/2019 * Family History:?Mother: dece ased.?Father: .?Siblings: diagnosed with Diabetic - NIDDM, Unspecified essential hypertension.?Children: diagnosed with Other malignant neoplasm of unspecified [...] tablet Orally Once a day Vitamin E Trulicity 1.5 MG/0.5ML Solution Auto-injector Subcutaneous Fluticasone Propionate HFA 220 MCG/ACT Aerosol Inhalation Taking Ozempic Taking Coventry 3 Taking Albuterol Taking dilTIAZem HCl 120 [...] Orally Once a day Taking Vitamin E Taking Trulicity 1.5 MG/0.5ML Solution Auto-injector Subcutaneous Taking Fluticasone Propionate HFA 220 MCG/ACT Aerosol Inhalation Not- Taking/PRNMontelukast Sodium 10 MG Tablet 1 tablet Orally [...] Capsule 1 capsule Orally Once a day Not- Taking/PRN Prolia 60 MG/ML Solution Prefilled Syringe as directed Subcutaneous , Notes to Pharmacist: 2 TIMES YEARLYNot-Taking/PRN aspirin 81 mg daily Not-Taking/PRN Calcium 1 tab Oral Not-Taking/PRN Losartan Potassium 100 MG Tablet Orally Not-Taking/PRN ProAir HFA , Notes to Pharmacist: PRNNot-Taking/PRN carBAMazepine Not-Taking/PRN Januvia 100 MG Tablet Orally Medication List reviewed and reconciled with the patient * Allergies:?Hydrochlorothiazi de: diarrheaPravastatin Sodium: diarrheaSimvastatin: diarrheaMetformin HCl: diarrheaCiprofloxacin: diarrheaLevofloxacin: diarrheaFosamax: diarrheayes[Allergies Verified] Objective: * Vitals:?Ht: 5 ft 1 in, Wt:14 4, BMI: 27.21, Shoe size:8.5, BP:120/60mm Hg, BS:147, Ht-cm: 154.94 cm, Wt-k.32 kg. * ???Past Orders: ???Lab:HEMOGLOBIN A1C (GLYCO HEMOGLOBIN) (Order Date - 06/02/2024) (Collection Date & Time - 08/22/2024 11:41 AM) ? Value Reference Range ?HEMOGLOBIN A1C % (HH) 6.5 * Examination: ???Ophthalmology Referral: ?DIABETES EYE EXAM?Procedure Performed:?Yes ?Date of Exam Performed?10/31/2024 ?Diabetic Retinopathy Screening:?Yes ?Retinal Screening Performed:?Yes ?Findings of Diabetic Eye Exam:?no retinopathy?Vascular: ?DP [...] T4, Plantar, T6, Dorsal, PIPJ, T9,Plantar, Heel(s), B/L.? Assessment: * Assessment: 1.?Type 2 diabetes mellitus with diabetic peripheral angiopathy without gangrene - E11.51 (Primary)???Specify :Q8???2.?Tinea unguium - B35.1???3.?Pain in right toe(s) - M79.674???4.?Pain in left toe(s) - M79.675??? Plan: * Treatment: 2.?Tinea unguium?Procedure: 09933-HMMMHNJ NAIL, 6 OR MORE * Procedures:?Debride Nail [...] use of a nail nipper and/or dremel-type hull grinder, to a more viable healthy nail [...] to maintain effectiveness in symptomatic relief - 43198.?Keratoma Treatment:?Parring or Cutting of Benign Hyperkeratotic Lesion(s)?(-57) [...] instrumentation by the physician of record - 31062, Q8.? * Procedure Codes:?58183 DEBRI DE NAIL, 6 OR MORE, Modifiers: XS 53495 TRIM SKIN LESIONS, OVER 4, Modifiers: XS , Q8 * Follow Up:?prn * Images: * Sign off status: Completed true * Provider:?Reese Garcia DPM Date:?2024 Generated for Mary quezada/Rupa/eTransmitting on:?11/22/2024 11:19 AM EDT History and Physical Notes * HPI (History of Present Illness) Category Sub-Category Detail Notes Category Not es At Risk footcare Pt States Last PCP Visit: Date: 06/06/2024 States has an appt with PCP soon - 11/22 Examination Category Sub-Category Detail Notes Category Not es Dermatologic SKIN FINDINGS: Skin exam reveal s Keratotic lesion(s) located at, Plantar, T1, Dorsal, PIPJ, T4, Plantar, T6, Dorsal, PIPJ, T9,Plantar, Heel(s), B/L Ophthalmology Referral DIABETES EYE EXAM Procedu re Performed:: Yes ?Date of Exam Performed: 10/31/2024 Diabetic Retinopathy Screening:: Yes Retinal Screening Performed:: Yes Findings of Diabetic Eye Exam:: no retin [...]
--- OUTSIDE RECORDS SUMMARY | 2024-11-22 11:19 | XMS_ITS ---
Author Organization [facility] Address [address] [place] [address] Care Team Providers Care Boxing Promoter Name Role Phone Corrine Spangler MD Primary Care Provider Unavaila Reese Green Unavailable [phone] REASON FOR VISIT r/s for sooner apt Encounters Encounter Location Date Provider Diagnosis [address] [address] 07/04/2024 Reese Garcia Plan Of Treatment Next Appt Details Provider Name:Reese Garcia , 02/16/2025 01:45:00 PM, [address] [place] [address], [address], Progress Notes * Genie RAO EDOB:1 09/27/1939 (84 yo F)Acc No.[id number]:07/04/2024 Progress Note Patient:?James RAO Provider:?Reese Garcia DPM :1940???Age:83 Y???Sex:Female D ate:07/04/2024 Address:[facility] [place] Pcp:Corrine Spangler MD Subjective: * Chief Complaints: * ???1. R/s for sooner apt. * Medical History:? Objective: * Vitals:? Assessment: Plan: * Treatment: * Images: * The named appointment provid er may or may not be the originator of this progress note, and it is not deemed complete until electronically signed by the appointment provider. Sign off status: Pending * Provider:Ryder Garcia DPM Date:?2023 Generated for Mary quezada/Rupa/Eddie on:?11/22/2024 11:18 AM EDT
== END 2024-11-22 11:00 | disposition home or self-care (01) ==
LOC: HO.HMCC 09:53
PROVIDERS: PCP Internal Medicine; Visit Provider Internal Medicine
DX: E11.9 Type 2 diabetes mellitus without complications (principal); I10 Essential (primary) hypertension; J45.909 Unspecified asthma, uncomplicated

== ENCOUNTER → 2024-11-22 09:52 | Outpatient (BNVA) | payer MEDICARE, OTHER, SELFPAY | PROVIDERS: PCP Internal Medicine; Visit Provider Internal Medicine | DX: E11.9 Type 2 diabetes mellitus without complications (principal); I10 Essential (primary) hypertension; J45.909 Unspecified asthma, uncomplicated | CPT/HCPCS: 99212 ==

== ENCOUNTER 2024-11-24 08:02 | Outpatient (AMB) | payer MEDICARE, OTHER, SELFPAY ==
[2024-11-24 08:07] VITALS: BP 110/68; PULSE 74; O2SAT 98
--- NOTE | 2024-11-24 08:07 | MHC.OFFWIV ---
Intake Vital Signs 11/24/24 08:07 Weight 146 lb BP 110/68 Blood Pressure Location Rt brachial Position Sitting Pulse 74 Pulse Source Pulse Oximeter Pulse Oximetry (%) 98 Oxygen Delivery Method Room Air Intake Visit Reasons: EP RT wrist pain, little swelling Intake Note: Patient here for right wrist pain that started before easter. Patient Tobacco Use Status: Never used Tobacco Allergies alendronate sodium [From FOSAMAX] Allergy (Intermediate, Verified 11/24/24 08:20) DIARRHEA ciprofloxacin [CIPROFLOXACIN] Allergy (Intermediate, Verified 11/24/24 08:20) HEADACHE,SOB hydrochlorothiazide [HYDROCHLOROTHIAZIDE] Allergy (Intermediate, Verified 11/24/24 08:20) HEADACHE,DIZZINESS, Gi upset levofloxacin [From LEVAQUIN] Allergy (Intermediate, Verified 11/24/24 08:20) HEADACHE,SOB metformin [METFORMIN] Allergy (Intermediate, Verified 11/24/24 08:20) DIARRHEA, Gi upset pravastatin [PRAVASTATIN] Allergy (Intermediate, Verified 11/24/24 08:20) HEADACHE,SOB, Gi upset simvastatin [SIMVASTATIN] Allergy (Intermediate, Verified 11/24/24 08:20) HEADACHE,SOB, Gi upset canagliflozin [From INVOKANA] Adverse Reaction (Intermediate, Verified 11/24/24 08:20) DIARRHEA dapagliflozin [From FARXIGA] Adverse Reaction (Intermediate, Verified 11/24/24 08:20) DIARRHEA dulaglutide [From Trulicity] Adverse Reaction (Intermediate, Verified 11/24/24 08:20) skin bumps mannitol [From Reclast] Adverse Reaction (Verified 11/24/24 08:20) bone pain water for injection,sterile [From Reclast] Adverse Reaction (Verified 11/24/24 08:20) bone pain zoledronic acid [From Reclast] Adverse Reaction (Verified 11/24/24 08:20) bone pain From PERCOCET Adverse Reaction (Mild, Uncoded 11/24/24 08:20) NAUSEA Do you need a note to return to daycare/school/sports/work: No HPI HPI Comments History of Present Illness Details History of Present Illness - The patient is an 84-year-old female presenting with right wrist pain following recent physical exertion. Before the onset, she performed heavy lifting related to Easter preparations and subsequent home tasks (6 days ago). By Wednesday (2 days ago) night, pain became notable, and she used Tylenol and ice, which offered some relief. Her pain is localized at the base of the right palm extending into the wrist, with associated swelling. She has a history of osteoarthritis, generally managed with Aleve Arthritis, and reports some relief after use for this incident. Previously used wrist support increased her discomfort. Physical Exam General: Cooperative, healthy appearing, comfortable, no acute distress and well developed Orientation: Patient oriented x3 Limitations: none Head: Normal to inspection Ears: Hearing grossly normal bilaterally Nose: Normal External nose present Face and sinus: Normal facial exam Eyes: Appearance normal, both eyes and all related structures Neck: Normal visual inspection and Yes full ROM Respiratory: Normal respiratory effort and able to speak in complete sentences Skin: No rashes or lesions noted Neuro: Patient oriented x3 Extremities: Right wrist mild pain on flexion, ulnar and radial deviation. none with extension supination, pronation. Mild swelling to thenar area of right hand. normal ROM fingers on right hand. negative Tinel's. Normal to inspection otherwise. [facility] Medical History Annual physical exam Asthma Diabetes mellitus HTN (hypertension) Diastolic dysfunction Family history of total abdominal hysterectomy and bilateral salpingo-oophorectomy (JOANA-BSO) Surgical History Hx of bilateral cataract extraction History of bladder suspension procedure History of lumpectomy of right breast History of trigger finger History of urethrocutaneous fistula Hx of hysterectomy Hx of section Hx of appendectomy Family History Father CAD (coronary artery disease) Mother Parkinson disease Mental health disorder Brother Diabetes Melanoma Social History Housing: House Alcohol intake: never Patient Tobacco Use Status: Never used Tobacco e-Cigarette/Vaping Use: Never Used Second Hand Smoke Exposure: No service: No Current occupational status: retired 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 Cognitive needs: No Hearing needs: No Vision needs: Yes Review of Systems Const All systems reviewed & are unremarkable except as noted in HPI and below Physical Exam Vital Signs: Last Vital Signs Pulse 74 04/25/25 08:07 BP 110/68 11/24/24 08:07 Pulse Ox 98 11/24/24 08:07 Oxygen Delivery Method Room Air 11/24/24 08:07 Assessment & Plan Assessment & Plan (1) Right wrist sprain: Code(s): S63.501A - Unspecified sprain of right wrist, initial encounter Qualifiers: Encounter type: initial encounter Qualified Code(s): S63.501A - Unspecified sprain of right wrist, initial encounter Plan: For the right wrist sprain, a wrist brace is advised for stabilization, removing it twice daily to do ROM exercises to maintain mobility. Aleve is recommended for pain management as needed, consistent with her osteoarthritis management. The approach focuses on stabilization rather than compression, aligning with the probable diagnosis of overuse injury, emphasizing rest yet maintaining function. The brace is suggested not to be worn during sleep if uncomfortable, ensuring daytime use to support recovery. USe ice and Aleve as needed. Follow up with PCP if no improvement over next few weeks Patient was informed and verbally consented to the use of an ambient scribe for clinic note documentation during this visit. Coding Level of Care Code Est Pt Level 3 (03708) Diagnoses Sprain of right wrist, initial encounter S63.501A Encounter type: initial encounter
--- OUTSIDE RECORDS SUMMARY | 2024-11-24 08:07 | XMS_ITS | Data Portability ---
Author Organization [facility] Address [address] [place] [address] Care Team Providers Care Manager Front Office Name Role Phone [facility] Primary Care Provider [phone] [facility] OTHER [phone] Assessment No assessment recorded. Plan of Treatment Reminders Order Date Submit Date Provider Last Modified By Organization Details Last Modified Time Details Appointments None recorded. Lab urinalysis , dipstick 2022 023 kayleenGurpreet [address]anna patino, [address] [place] [address], [phone], 3 09:13:00 glucose, fingerstic k, blood 2022 023 [facility] [address] patino, [address] [place] [address], [address], 3 09:13:00 culture, urine 2022 023 DUNLAP [facility], [address] [place] [address], [place], [address], 3 16:06:30 Referral None recorded. Procedures None recorded. Surgeries None recorded. Imaging None recorded. Medication Orders Macrobid 100 mg capsule 2022 023 DUNLAP [id number], [address] [facility] [place], [address], 3 09:13:03 Patient TargetsNo targets recorded. Patient Instructions Encounter Date Encounter Id Patient Instructions Last Modified By Organization Details Last Modified Time 11/07/2022 [id number] nausea and vomiting: care instructions Not available [...] to have routine doctor appointments with their service tester and/or primary care provider to examine or [...] green veggies (e.g., broccoli, spinach, brussels sprouts) Panola veggies (e.g., carrots, sweet potatoes, pumpkin, winter [...] calluses are present, ask a doctor or user experience team lead about the best way to care for [...] routine FINAL REPORT abnormal Not Available [facility] [address] [place], [address], 11/14/2022 08:07:39 11/08/1911/14/2022 URINE CULTU RE, ROUTI NE result 1 ENTERO BACTER SPECIE S abnormal 50,00 0-100 ,000 colon y formi ng units per mL Not Available [facility] [address] [facility], [place], [address], 11/14/2022 08:07:39 11/08/1911/14/2022 URINE CULTU RE, ROUTI [...] thopr im/Lopez lfa S Not Available [facility] [address] [facility] [place], [address], 11/14/2022 08:07:39 11/08/1911/07/2022 gluco se, finge rstic k, blood blood sugar - non fasting 221 mg/dL 80-140 = normal Not Available [address], [place], [address], 11/07/2022 08:38:45 11/08/19 23 11/07/2022 gluco se, finge rstic k, blood blood sugar - fasting mg/dL 80-125 = normal Not Available [address], [place], [address], 11/07/2022 08:38:45 11/08/19 23 11/07/2022 urina lysis , dipst ick Unknown Analyte Normal = light yellow Not Available [address], [place], [address], 11/07/2022 08:31:12 11/08/19 23 11/07/2022 urina lysis , dipst ick Unknown Analyte Yellow Not Available [address], [place], [address], 11/07/2022 08:31:12 11/08/19 23 11/07/2022 urina lysis , dipst ick Unknown Analyte Normal = clear Not Available [address], [place], [address], 11/07/2022 08:31:12 11/08/19 23 11/07/2022 urina lysis , dipst ick Unknown Analyte Clear Not Available [address], [place], [address], 11/07/2022 08:31:12 11/08/19 23 11/07/2022 urina lysis , dipst ick Unknown Analyte Normal = negati ve Not Available pete blankenship [address], [place], [address], 11/07/2022 08:31:12 11/08/19 23 11/07/2022 urina lysis , dipst ick Unknown Analyte 250 mg/dL Not Available [facility] [address], [place], [address], 11/07/2022 08:31:12 11/08/19 23 11/07/2022 urina lysis , dipst ick Unknown Analyte Normal = Negati ve Not Available pete blankenship [address], [place], [address], 11/07/2022 08:31:12 11/08/19 23 11/07/2022 urina lysis , dipst ick Unknown Analyte Negati ve Not Available pete blankenship [address], [place], [address], 11/07/2022 08:31:12 11/08/19 23 11/07/2022 urina lysis , dipst ick Unknown Analyte Normal = Negati ve Not Available pete blankenship [address], [place], [address], 11/07/2022 08:31:12 11/08/19 23 11/07/2022 urina lysis , dipst ick Unknown Analyte Negati ve Not Available pete blankenship [address], [place], [address], 11/07/2022 08:31:12 11/08/19 23 11/07/2022 urina lysis , dipst ick Unknown Analyte Normal = 1.010, 1.015, 1.020 Not Available [facility] [address], [place], [place], [address], 11/07/2022 08:31:12 11/08/19 23 11/07/2022 urina lysis , dipst ick Unknown Analyte 1.030 Not Available deanna [address], [place], [address], 11/07/2022 08:31:12 11/08/19 23 11/07/2022 urina lysis , dipst ick Unknown Analyte Normal = Negati ve Not Available pete blankenship [address], [place], [address], 11/07/2022 08:31:12 11/08/19 23 11/07/2022 urina lysis , dipst ick Unknown Analyte Trace- intact Not Available [facility] [address], [place], [address], 11/07/2022 08:31:12 11/08/19 23 11/07/2022 urina lysis , dipst ick Unknown Analyte Normal = 6.5, 7.0, 7.5, 8.0 Not Available pete blankenship [address], [place], [address], 11/07/2022 08:31:12 11/08/19 23 11/07/2022 urina lysis , dipst ick Unknown Analyte 5.5 Not Available [address], [place], [address], 11/07/2022 08:31:12 11/08/19 23 11/07/2022 urina lysis , dipst ick Unknown Analyte Normal = Negati ve Not Available pete blankenship [address], [place], [address], 11/07/2022 08:31:12 11/08/19 23 11/07/2022 urina lysis , dipst ick Unknown Analyte 30 mg/dL Not Available [facility] [address], [place], [address], 11/07/2022 08:31:12 11/08/1911/07/2022 urina lysis , dipst ick Unknown Analyte Normal = 0.2, 1.0 Not Available [facility] [address], [place], [address], 11/07/2022 08:31:12 11/08/19 23 11/07/2022 urina lysis , dipst ick Unknown Analyte 0.2 E.U./d L Not Available [facility] [address], [place], [address], 11/07/2022 08:31:12 11/08/19 23 11/07/2022 urina lysis , dipst ick Unknown Analyte Normal = Negati ve Not Available [address], [place], [address], 11/07/2022 08:31:12 11/08/19 23 11/07/2022 urina lysis , dipst ick Unknown Analyte Negati ve Not Available [address], [place], [address], 11/07/2022 08:31:12 11/08/1911/07/2022 urina lysis , dipst ick Unknown Analyte Normal = Negati ve Not Available [address], [place], [address], 11/07/2022 08:31:12 11/08/1911/07/2022 urina lysis , dipst ick Unknown Analyte Small Not Available [address] [place] [address], [place], [address], 11/07/2022 08:31:12 Result Notes None recorded. Problems Name Problem SNOMED Code Status Onset Date Resolution Date Notes Provider Name and Address Organization Details Recorded Time Diabetes mellitus 20908114 Active 2022 OLIVIA DEPINTO null, [place] - [facility] 3 08:21:08 Osteoporosi s 20828542 Active 2022 OLIVIA DEPINTO null, [place] - [facility] 3 08:21:27 Gastroesoph ageal reflux disease 516649464 Active 2022 OLIVIA DEPINTO null, PA - [facility] 3 08:21:32 Hypertensiv e disorder 42923994 Active 2022 OLIVIA DEPINTO null, PA - [facility] 3 08:21:37 Asthma 821328843 Active 2022 OLIVIA DEPINTO null, PA - [facility] 3 08:21:49 Malignant tumor of breast 305864712 Completed 202211/07/20222003 OLIVIA DEPINTO null, PA - [...] Name and Address Organization Details Recorded Time 506036 hydrochlo rothiazid e medicatio n diarrhea Not available Not available 11/07/2022 5487 RxNorm OLIVIA DEPINTO null, PA - [facility] 3 08:18:50 739495 pravastat in medicatio n diarrhea Not available Not available 11/07/2022 54444 RxNorm OLIVIA DEPINTO null, PA - [facility] 3 08:19:10 045476 metformin medicatio n diarrhea Not available Not available 11/07/2022 6809 RxNorm OLIVIA DEPINTO null, PA - [facility] 3 08:19:19 509204 ciproflox acin medicatio n diarrhea Not available Not available 11/07/2022 2551 RxNorm OLIVIA DEPINTO null, PA - [facility] 3 08:19:43 001243 alendrona te sodium medicatio n diarrhea Not available Not available 11/07/2022 71393 2 RxNorm OLIVIA DEPINTO null, PA - [facility] 3 08:19:52 187777 Farxiga medicatio n diarrhea Not available Not available 11/07/2022 39766 72 RxNorm OLIVIA DEPINTO null, PA - [...] Not Available Vitals Date Recorded Body height Body mass index (BMI) Body weight Pain severity - 0-10 verbal numeric rating [Score] - Reported Respiratory rate Body temperature Oxygen saturation Oxygen saturation in Arterial blood by Pulse oximetry Heart rate Systolic blood pressure Diastolic blood pressure Provider Name and Address Organization Details Last Updated DateTime 3 154.94 cm 27 kg/m2 12237.7 1 g 0 18 /min 97.2 [degF] 96 % 96 % 75 /min 151 mm[Hg] 73 mm[Hg] OLIVIA KAHN PA - [facility] 08:27:08 Social History Question Answer Notes LastModified by Organizat ion Details LastModified Time Tobacco Smoking Status Never Smoker OLIVIA vergara PA - [facility] 11/07/2022 08:22:09 What [...] [facility] 11/07/2022 08:16:22 Pneumococcal conjugate PCV20, polysaccharide DCT354 conjugate, adjuvant, PF 3 completed OLIVIA DEPINTO [...] SNOMED-CT Code Diagnosis ICD10 Code Diagnosis Note [id number] [address] [address] [place] [address] 05/01/2018 11:10:17 05/01/2018 12:08:27 [id number] [address] [facility] [address] [place] [address] 07/04/2018 08:22:27 07/04/2018 08:50:56 [id number] [address] [place] [address] 10/16/2016 13:39:10 10/16/2016 15:34:24 [id number] [address] [place] [address] 10/16/2018 08:16:49 10/16/2018 09:03:27 [id number] [address] [place] [address] 12/05/2016 08:05:07 12/05/2016 09:01:39 [id number] [address] [place] [address] 08/09/2017 08:51:37 08/09/2017 09:35:02 [id number] [address] [place] [address] 08/06/2015 10:01:18 08/06/2015 11:48:14 [id number] [address] [place] [address] 09/15/2016 10:47:05 09/15/2016 12:43:09 [id number] [address] [place] [address] 10/19/2016 14:20:17 10/19/2016 16:00:31 [id number] Luis Pierce NP [address] [place] [address] 11/07/2022 08:06:50 11/07/2022 09:16:29 Acute urinary tract infection 054394560 N39.0 Diabetes m ellitus screening 076479729 Z13.1 Type 2 lois betes mellitus 40149849 E11.22 Health Concerns Section Related Observation LastModified by Organization Detai ls LastModified Time None Recorded Concern Status LastModified by Organization Details LastModified Time None Recorded Advance Directives Directive None Recorded Payers Encounter Date Sequence Insurance Name Policy Number Policy Mercedes Covered Member ID Mercedes Member ID Guarantor Name 08/09/2017 1 [place] [facility] Genie E Cornelio Harrington [id number] 1 [id number] Genie E Cornelio Harrington 08/09/2017 2 [facility] Genie E Cornelio-Mo rin [id number] Genie E Cornelio Harrington 05/01/2018 1 [place] [employer] Genie E Cornelio Harrington [id number] 1 [id number] Genie E Cornelio Harrington 05/01/2018 2 [facility] Genie E Cornelio-Mo rin [id number] Genie E Cornelio Harrington 07/04/2018 1 [place] [facility] G[facility] SERVICES Genie E Cornelio Harrington [id number] 1 [id number] 01 Genie E Cornelio Harrington 07/04/2018 2 [facility] Genie Hermelinda Cornelio-Mo rin [id number] Genie E Cornelio Harrington 10/16/2018 1 [place]: [facility] Genie Hermelinda Cornelio Harrington [id number] 1 [id number] 01 Genie E Cornelio Harrington 10/16/2018 2 [facility] Genie E Cornelio-Mo rin [id number] Genie E Cornelio Harrington 11/07/2022 1 [place] [facility] Genie E Cornelio Harrington [id number] 1 [id number] 01 Genie E Cornelio Harrington 11/07/2022 2 [facility] Genie E Cornelio-Mo rin [id number] Genie E Cornelio Harrington Notes Date Note Type Note Provider Name and Address Organization Details Recorded Time 11/07/2022 text/html frequency and ur gency x 3 day. denies any fever or fever with chills, denies any History of renal stone or bladder issues. Luis Pierce NP [address] [place], [address], [place] - [facility] 11/07/2022 09:13:42 11/07/2022 text/html Nausea [facility] [...] or bladder issues. Luis Pierce NP [address] [place], [address], [place] - [facility] 11/07/2022 09:13:42 OBGyn Episode No OBEpisode recorded.
--- OUTSIDE RECORDS SUMMARY | 2024-11-24 08:07 | XMS_ITS ---
Author Organization [facility] Address [address] [place] [address] Care Team Providers Care Life Skills Specialist Name Role Phone Corrine Spangler MD Primary Care Provider Unavaila Reese Green Unavailable [phone] REASON FOR VISIT r/s for sooner apt Encounters Encounter Location Date Provider Diagnosis [address] [address] 07/04/2024 Reese aGrcia Plan Of Treatment Next Appt Details Provider Name:Reese Garcia , 02/16/2025 01:45:00 PM, [address] [place] [address], [address], Progress Notes * Genie RAO EDOB:1 09/27/1939 (84 yo F)Acc No.[id number]:07/04/2024 Progress Note Patient:?James RAO Provider:?Reese Garcia DPM :1940???Age:83 Y???Sex:Female D ate:07/04/2024 Address:[facility] [address] [id number] Pcp:Corrine Spangler MD Subjective: * Chief Complaints: [...] Garcia DPM Date:?2023 Generated for Mary quezada/Rupa/Eddie on:?11/24/2024 08:06 AM EDT
--- OUTSIDE RECORDS SUMMARY | 2024-11-24 08:07 | XMS_ITS | Patient Health Record ---
Author Organization [facility] Address [address] [place] [address] Care Team Providers Care Credit Administration Manager Name Role Phone Corrine Spangler MD Primary Care Provider Unavaila Reese Green Unavailable [phone] Brittany Zepeda Unavailable [phone] Maritza Hazel Unavailable [phone] Allergies Allergen (clinical drug ingredient) Drug/Non Drug [...] for 30 day(s) Active Vitamin E Active [place] 3 Active Albuterol Active Magnesium 500 MG [...] 120 MG 2 tablets Orally Active carBAMazepine [facility] christian Immunizations Vaccine Route Administration Date [...] Problem Acquired hammer toe of right foot ([id number] 105) Other hammer toe(s) (acquired), right foot (M20.41) Active confirmed Response to treatment,I mprovement Problem Type 2 diabetes mellitus with peripheral angiopathy (234756469) Type 2 diabetes mellitus with diabetic peripheral angiopathy without gangrene (E11.51) Active confirmed Problem Acquired hammer toe of left foot ([id number] 103) Other hammer toe(s) (acquired), left foot (M20.42) Active confirmed Response to treatment,I mprovement Vital Signs Blood pressure diastolic 60 mm Hg 11/14/2024 Height 5 ft 1 in in 11/14/2024 Blood pressure systolic 120 mm Hg 11/14/2024 Weight 144 lbs 11/14/2024 BMI 27.21 kg/m2 11/14/2024 Procedures Procedure Date Ordered Date Performed Result Body Sit e 88570-GZYCFBO NAIL, 6 OR MORE 03/21/2024 N/A 47767-WGZD SKIN LESIONS, OVER 4 03/21/2024 N/A 74374-NLXBAZV NAIL, 6 OR MORE 06/07/2024 N/A 45458-BKLC SKIN LESIONS, OVER 4 06/07/2024 N/A 61667-IVXVWHE NAIL, 6 OR MORE 08/22/2024 N/A 60534-DPZS SKIN LESIONS, OVER 4 08/22/2024 N/A 06889-BVTDPYK NAIL, 6 OR MORE 11/14/2024 N/A 01416-NUAE SKIN LESIONS, OVER 4 11/14/2024 N/A Encounters Encounter Location Date Provider Diagnosis [address] [address] 01/07/2024 Brittany Zepeda Type 2 diabetes mellitus with diabetic peripheral angiopathy without gangrene E11.51 ; Tinea unguium B35.1 ; Pain in right toe(s) M79.674 and Pain in left toe(s) M79.[address] [address] 03/21/2024 Reese Garcia Type 2 diabetes mellitus with diabetic peripheral angiopathy without gangrene E11.51 ; Tinea unguium B35.1 ; Pain in right toe(s) M79.674 and Pain in left toe(s) M79.[address] [address] 06/07/2024 Maritza Hazel Type 2 diabetes mellitus with diabetic peripheral angiopathy without gangrene E11.51 ; Tinea unguium B35.1 ; Pain in right toe(s) M79.674 and Pain in left toe(s) M79.[address] [facility] [address] 08/22/2024 Reese Garcia Type 2 diabetes mellitus with diabetic peripheral angiopathy without gangrene E11.51 ; Tinea unguium B35.1 ; Pain in right toe(s) M79.674 ; Pain in left toe(s) M79.675 ; Other hammer toe(s) (acquired), right foot M20.41 and Other hammer toe(s) (acquired), left foot M20.[address] [address] 11/14/2024 Reese Garcia Type 2 diabetes mellitus with diabetic peripheral angiopathy without gangrene E11.51 ; Tinea unguium B35.1 ; Pain in right toe(s) M79.674 and Pain in left toe(s) M79.[address] [address] 04/10/2024 Reese Garcia Assessments Encounter Date Diagnosis [...] Test Name Order Date Hemoglobin A1c 09/03/2015 79136-EGAWFIQ NAIL, 6 OR MORE 12/06/2015 86232-BUTSDZT NAIL, 6 OR MORE 09/03/2015 60578-IJGJYJE NAIL, 6 OR MORE 03/10/2016 66958-EQAUWAY NAIL, 6 OR MORE 06/09/2016 18558-FMCBBDO NAIL, 6 OR MORE 09/01/2016 91368-WDMLJKU NAIL, 6 OR MORE 11/24/2016 97685-XXMTOAL NAIL, 6 OR MORE 04/18/2021 24005-TJDHBPA NAIL, 6 OR MORE 07/04/2021 52297-JXFYMQI NAIL, 6 OR MORE 09/16/2021 13608-OETZKKV NAIL, 6 OR MORE 02/16/2017 53229-ENQXYGT NAIL, 6 OR MORE 04/27/2017 17868-KXOQSQI NAIL, 6 OR MORE 07/20/2017 57606-SQRKLNC NAIL, 6 OR MORE 09/28/2017 42788-FJCGIPE NAIL, 6 OR MORE 11/30/2017 63830-CDPIOXQ NAIL, 6 OR MORE 02/15/2018 62634-ZCKSHVO NAIL, 6 OR MORE 05/10/2018 78476-VTUTZQD NAIL, 6 OR MORE 08/19/2018 71357-OCGCCLI NAIL, 6 OR MORE 11/04/2018 03089-ABSRYMX NAIL, 6 OR MORE 01/24/2019 29493-NHTCVPV NAIL, 6 OR MORE 06/13/2019 94052-EYBNFEZ NAIL, 6 OR MORE 08/22/2019 31538-KHXOXEU NAIL, 6 OR MORE 10/31/2019 71494-ONSFFZC NAIL, 6 OR MORE 01/09/2020 05509-NBGEQJA NAIL, 6 OR MORE 03/19/2020 60236-ETTSTEA NAIL, 6 OR MORE 06/21/2020 10082-WSMOVHN NAIL, 6 OR MORE 08/30/2020 15152-LQILDHE NAIL, 6 OR MORE 11/05/2020 71348-IHKGMJQ NAIL, 6 OR MORE 01/10/2021 98591-SKZLJYN NAIL, 6 OR MORE 11/25/2021 86158-CXVLIHN NAIL, 6 OR MORE 01/30/2022 87913-BFFRNPJ NAIL, 6 OR MORE 04/14/2022 24841-ELAWVRV NAIL, 6 OR MORE 08/07/2022 48473-UEXQMBL NAIL, 6 OR MORE 10/16/2022 61577-CITKCNZ NAIL, 6 OR MORE 01/05/2023 28755-JMWHIAR NAIL, 6 OR MORE 03/16/2023 88578-BJGRYUV NAIL, 6 OR MORE 05/25/2023 29493-SBWGBHP NAIL, 6 OR MORE 08/06/2023 19150-FIRBPTU NAIL, 6 OR MORE 10/19/2023 60748-BNZWWVI NAIL, 6 OR MORE 03/21/2024 18049-UPEDOBB NAIL, 6 OR MORE 06/07/2024 69663-FMLRFYG NAIL, 6 OR MORE 08/22/2024 93195-EQVHFOQ NAIL, 6 OR MORE 11/14/2024 61469-Pntrajzx Plate 01/10/2021 07958-Ieaooxzb Plate 11/24/2016 88053-Ihgdaice Plate 09/01/2016 22871-Szofbtzm Plate 06/09/2016 08605-Jkodxiqv Plate 03/10/2016 16567-Uhvkpnof Plate 09/03/2015 17224-Tnhhdwzq Plate 12/06/2015 72132-CDVG SKIN LESIONS, OVER 4 11/15/19 25 02762-LKSG SKIN LESIONS, OVER 4 08/22/19 25 40857-TQFJ SKIN LESIONS, OVER 4 06/07/20 24 30367-THSD SKIN LESIONS, OVER 4 10/19/19 24 43309-EXYJ SKIN LESIONS, OVER 4 03/21/20 24 55549-PNJN SKIN LESIONS, OVER 4 08/06/19 24 26757-RLHP SKIN LESIONS, OVER 4 05/25/20 23 08426-EMAT SKIN LESIONS, OVER 4 03/16/20 23 08950-HXBC SKIN LESIONS, 2 TO 4 01/06/20 23 32117-UPPI SKIN LESIONS, 2 TO 4 10/17/19 23 36268-IHIG SKIN LESIONS, 2 TO 4 08/07/19 23 47773-UTEG SKIN LESIONS, 2 TO 4 04/14/20 22 31266-NGNV SKIN LESIONS, 2 TO 4 01/31/20 22 29653-NCUM SKIN LESIONS, 2 TO 4 11/26/19 22 01996-JOFM SKIN LESIONS, 2 TO 4 09/16/19 22 66820-WOXK SKIN LESIONS, 2 TO 4 07/04/20 21 Next Appt Details Provider Name:Reese Garcia , 02/16/2025 01:45:00 PM, [address] [facility], [place], [address], Insurance Providers Payer Name Payer Address Payer Phone Subscriber Number Group Number Insured Name Patient Relationship to Insured Coverage Start Date Coverage End Date Medicare [facility] [address] [place] [address] [id number] Genie Escalera Self - patient is the insured [address] [employer] [place] [address] [place] [phone] [id number] Genie Escalera Self - patient is the insured Medical (General) History Medical History History ICD Code Arthritis Asthma Back,Hip,and Knee pain Cancer Cataracts Diabetes mellitus type 2 Gall bladder problems High blood pressure Polio chronic sinusitis Measles Mumps Chicken pox Transfusions Reflux Surgical History Surgery Date(Month/Year) gall bladder 1967 breast surgery hysterectomy bladder suspension vein surgery (LT leg) [place] carpal [place] [facility] [place] surgery- trigger finger right 2020 sx underarm 12/15/21 Hospitalization History Reason Date(Month/Year) [facility] [place]- not tested- said asthma and allergies 10/24/2019 [facility] [place]- lesion found in samuel ngs 09/13/2017 pneumonia 11/24-11/26/15
--- OUTSIDE RECORDS SUMMARY | 2024-11-24 08:07 | XMS_ITS ---
Author Organization [facility] Address [address] [place] [address] Care Team Providers Care Billing Machine Operator Name Role Phone Corrine Spangler MD Primary Care Provider Reese Mancilla Unavailable [phone] Allergies Allergen (clinical drug ingredient) Drug/Non Drug [...] HFA PRN Active Albuterol Active Ozempic Active [place] 3 Active Social History Tobacco Use: Social [...] No Points 0 Interpretation Negative Vital Signs Blood pressure systolic 130 mm Hg 08/22/19 25 Blood pressure diastolic 70 mm Hg 025 Height 5 ft 1 in in 08/22/2024 Weight 144 lbs 08/22/2024 BMI 27.21 kg/m2 08/22/2024 Procedures Procedure Date Ordered Date Performed Result Body Sit e 49942-TFCRSBV NAIL, 6 OR MORE 08/22/2024 N/A 87220-ZMFB SKIN LESIONS, OVER 4 08/22/2024 N/A Encounters Encounter Location Date Provider Diagnosis [facility] [place] [address] [place] [address] 08/22/2024 Reese Garcia Type 2 diabetes mellitus [...] Treatment Pending Test Test Name Order Date 01871-HTCYFMZ NAIL, 6 OR MORE 08/22/2024 12893-WXVT SKIN LESIONS, OVER 4 08/22/19 25 Next Appt Details Follow Up: prn, Reason: Provider Name:Reese Sugar TaylorJose , 02/16/2025 01:45:00 PM, [address] [place] [address], [phone], Procedure Notes * Category Sub-Category Detail Notes [...] use of a nail nipper and/or dremel-type precision grinder, to a more viable healthy nail [...] to maintain effectiveness in symptomatic relief - 22319 Keratoma Treatment Parring or Cutting o f [...] instrumentation by the physician of record - 89875, Q8 Progress Notes * MEGANTree MORRISille EDOB:1 09/27/1939 (84 yo F)Acc No.[id number]:08/22/2024 Progress Note Patient:?James RAO Provider:?Reese Garcia DPM :1940???Age:84 Y???Sex:Female D ate:08/22/2024 Address:[address] [place], [place] [id number] Pcp:Corrine Spangler MD Subjective: * Chief Complaints: [...] vein surgery (LT leg) right carpal tunnel [facility] [place]hand surgery- trigger finger right 1sx underarm 12/15/21 * Hospitalization/Major Diagno stic Procedure:?pneumonia 11/24-11/26/15[facility] [place] for coughing- lesion found in lungs 09/13/2017[facility] [place]-Coronavirus symptoms- not tested- [...] a day Vitamin E Taking Ozempic Taking Higgins 3 Taking Albuterol Taking dilTIAZem HCl 120 [...] to treatment,Improvement??? Plan: * Treatment: 2.?Tinea unguium?Procedure: 44811-EHAVLVQ NAIL, 6 OR MORE * Procedures:?Debride Nail [...] use of a nail nipper and/or dremel-type precision grinder, to a more viable healthy nail [...] to maintain effectiveness in symptomatic relief - 64993.?Keratoma Treatment:?Parring or Cutting of Benign Hyperkeratotic Lesion(s)?(-57) [...] instrumentation by the physician of record - 56141, Q8.? * Procedure Codes:?96486 DEBRI DE NAIL, 6 OR MORE, Modifiers: XS 42451 TRIM SKIN LESIONS, OVER 4, Modifiers: XS [...] Garcia DPM Date:?2024 Generated for Mary quezada/Rupa/eTgavinosmitting on:?11/24/2024 08:07 AM EDT History and Physical Notes * [...]
--- OUTSIDE RECORDS SUMMARY | 2024-11-24 08:07 | XMS_ITS ---
Author Organization [facility] Address [address] [place] [address] Care Team Providers Care Lens Grinder And Polisher Name Role Phone Corrine Spangler MD Primary Care Provider Reese Mancilla Unavailable [phone] Allergies Allergen (clinical drug ingredient) Drug/Non Drug [...] 220 MCG/ACT Inhalation for 60 Days Active [place] 3 Active Januvia 100 MG Orally Not-T aking Losartan Potassium 100 MG Orally Not-Taking ProAir HFA PRN Not-Takin g aspirin 81 mg daily Not-Ta christain Calcium 1 tab Oral for 14 days [...] Interpretation Negative Vital Signs Blood pressure systolic 120 mm Hg 11/15/19 25 Blood pressure diastolic 60 mm Hg 025 Height 5 ft 1 in in 11/14/2024 Weight 144 lbs 11/14/2024 BMI 27.21 kg/m2 11/14/2024 Procedures Procedure Date Ordered Date Performed Result Body Sit e 56460-UXECSME NAIL, 6 OR MORE 11/14/2024 N/A 34046-PMDU SKIN LESIONS, OVER 4 11/14/2024 N/A Encounters Encounter Location Date Provider Diagnosis [facility] [place] [address] [place] [address] 11/14/2024 Reese Garcia Type 2 diabetes mellitus [...] Treatment Pending Test Test Name Order Date 45962-ERWPCZY NAIL, 6 OR MORE 11/14/2024 51846-WROI SKIN LESIONS, OVER 4 11/15/19 25 Next Appt Details Follow Up: prn, Reason: Provider Name:Reese Garcia , 02/16/2025 01:45:00 PM, [address] [place] [address], [address], Procedure Notes * Category Sub-Category Detail Notes [...] use of a nail nipper and/or dremel-type turbinated bone grinder, to a more viable healthy nail [...] instrumentation by the physician of record - 58580, Q8 Progress Notes * Genie RAO EDOB:1 09/27/1939 (84 yo F)Acc No.[id number]:11/14/2024 Progress Note Patient:?James RAO Provider:?Reese Garcia DPM :1940???Age:84 Y???Sex:Female D ate:11/14/2024 Address:[address] [place], [place] [id number] Pcp:Corrine Spangler MD Subjective: * Chief Complaints: [...] vein surgery (LT leg) right carpal tunnel [facility] [place]hand surgery- trigger finger right 1sx underarm 12/15/21 * Hospitalization/Major Diagno stic Procedure:?pneumonia 11/24-11/26/15[facility] [place]ing- lesion found in lungs 09/13/[place] [place]-Coron[place] symptoms- not [...] 220 MCG/ACT Aerosol Inhalation Taking Ozempic Taking [place] 3 Taking Albuterol Taking dilTIAZem HCl 120 [...] - M79.675??? Plan: * Treatment: 2.?Tinea unguium?Procedure: 29096-MGOWFNA NAIL, 6 OR MORE * Procedures:?Debride Nail [...] use of a nail nipper and/or dremel-type turbinated bone grinder, to a more viable healthy nail [...] to maintain effectiveness in symptomatic relief - 47311.?Keratoma Treatment:?Parring or Cutting of Benign Hyperkeratotic Lesion(s)?(-57) [...] instrumentation by the physician of record - 27726, Q8.? * Procedure Codes:?25822 DEBRI DE NAIL, 6 OR MORE, Modifiers: XS 11452 TRIM SKIN LESIONS, OVER 4, Modifiers: XS , Q8 * Follow Up:?prn * Images: * Sign off status: Completed true * Provider:?Reese Garcia DPM Date:?2024 Generated for Mary quezada/Rupa/eTransmitting on:?11/24/2024 08:06 AM EDT History and Physical Notes * [...]
== END 2024-11-24 09:10 | disposition home or self-care (01) ==
PROVIDERS: PCP Internal Medicine; Visit Provider Physician Assistant
DX: S63.501A Unspecified sprain of right wrist, initial encounter (principal)

== ENCOUNTER → 2024-11-24 08:02 | Outpatient (BNVA) | payer MEDICARE, OTHER, SELFPAY | PROVIDERS: PCP Internal Medicine; Visit Provider Physician Assistant | DX: S63.501A Unspecified sprain of right wrist, initial encounter (principal) | CPT/HCPCS: 99212 ==

== ENCOUNTER 2025-01-10 11:13 | Outpatient (AMB) | payer MEDICARE, OTHER, SELFPAY ==
[2025-01-10 11:13] VITALS: BP 136/66; PULSE 82; TEMP 36.4; O2SAT 96; BMI 27.6
--- NOTE | 2025-01-10 11:13 | AM.OFFWIN_ITS ---
Intake Vital Signs 01/10/25 11:13 Height 5 ft 1 in Weight 146 lb BMI 27.6 BP 136/66 Blood Pressure Location Rt brachial Position Sitting Pulse 82 Pulse Source Pulse Oximeter Temp 97.6 F Temp Source Oral Pulse Oximetry (%) 96 Oxygen Delivery Method Room Air Intake Visit Reasons: EP-Muscle spam-neck & back Intake Note: Pt presents to the office today for c/o pain in her back that is radiating to her neck x1 month. Patient Tobacco Use Status: Never used Tobacco Allergies alendronate sodium [From FOSAMAX] Allergy (Intermediate, Verified 01/10/25 11:14) DIARRHEA ciprofloxacin [CIPROFLOXACIN] Allergy (Intermediate, Verified 01/10/25 11:14) HEADACHE,SOB hydrochlorothiazide [HYDROCHLOROTHIAZIDE] Allergy (Intermediate, Verified 01/10/25 11:14) HEADACHE,DIZZINESS, Gi upset levofloxacin [From LEVAQUIN] Allergy (Intermediate, Verified 01/10/25 11:14) HEADACHE,SOB metformin [METFORMIN] Allergy (Intermediate, Verified 01/10/25 11:14) DIARRHEA, Gi upset pravastatin [PRAVASTATIN] Allergy (Intermediate, Verified 01/10/25 11:14) HEADACHE,SOB, Gi upset simvastatin [SIMVASTATIN] Allergy (Intermediate, Verified 01/10/25 11:14) HEADACHE,SOB, Gi upset canagliflozin [From INVOKANA] Adverse Reaction (Intermediate, Verified 01/10/25 11:14) DIARRHEA dapagliflozin [From FARXIGA] Adverse Reaction (Intermediate, Verified 01/10/25 11:14) DIARRHEA dulaglutide [From Trulicity] Adverse Reaction (Intermediate, Verified 01/10/25 11:14) skin bumps mannitol [From Reclast] Adverse Reaction (Verified 01/10/25 11:14) bone pain water for injection,sterile [From Reclast] Adverse Reaction (Verified 01/10/25 11:14) bone pain zoledronic acid [From Reclast] Adverse Reaction (Verified 01/10/25 11:14) bone pain From PERCOCET Adverse Reaction (Mild, Uncoded 01/10/25 11:14) NAUSEA HPI HPI Comments History of Present Illness Details History of Present Illness - The patient is an 84-year-old female p resenting with neck pain. - The neck pain has been present for a m onth, located on the left side, and is severe enough to disrupt sleep. - The patient has tried various interven tions including ibuprofen, Aleve, heating pads, and topical creams, with no significant relief. - The patient has a history of arthritis , particularly affecting the wrist, and uses Aleve for management. - The patient is also managing diabetes mellitus and is awaiting a new prescription for Trulicity due to a delivery issue. [facility] told patient they mail the medication on December 29 however it has not arrived. Patient is concerned because she takes her injection every which is tomorrow and she is worried she is going to have an interruption in her administration of Trulicity. She is asking if I can send a prescription to [facility] so she could pick it up today. Physical Exam General: Cooperative, healthy appearing, comfortable, no acute distress and well developed Orientation: Patient oriented x3 Limitations: No limitations Head: Normal to inspection Ears: Hearing grossly normal bilaterally Nose: Normal External nose present Face and sinus: Normal facial exam Eyes: Appearance normal, both eyes and all related structures Neck: Normal visual inspection and Yes full ROM Respiratory: Normal respiratory effort and able to speak in complete sentences. Back/spine: No tenderness to palpation of cervical thoracic or lumbar spine, tightness in the left trapezius leading to the cervical spine and mild tenderness to palpation Skin: No rashes or lesions noted Neuro: Patient oriented x3 Extremities: Normal to inspection [facility] Medical History Annual physical exam Asthma Diabetes mellitus HTN (hypertension) Diastolic dysfunction Family history of total abdominal hysterectomy and bilateral salpingo- oophorectomy (JOANA-BSO) Surgical History Hx of bilateral cataract extraction History of bladder suspension procedure History of lumpectomy of right breast History of trigger finger History of urethrocutaneous fistula Hx of hysterectomy Hx of section Hx of appendectomy Family History Father CAD (coronary artery disease) Mother Parkinson disease Mental health disorder Brother Diabetes Melanoma Social History Housing: House Alcohol intake: never Patient Tobacco Use Status: Never used Tobacco e-Cigarette/Vaping Use: Never Used Second Hand Smoke Exposure: No service: No Current occupational status: retired 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 Cognitive needs: No Hearing needs: No Vision needs: Yes Review of Systems Const All systems reviewed & are unremarkable except as noted in HPI and below Physical Exam Vital Signs: Last Vital Signs Temp 97.6 F 01/10/25 11:13 Pulse 82 01/10/25 11:13 BP 136/66 01/10/25 11:13 Pulse Ox 96 01/10/25 11:13 Oxygen Delivery Method Room Air 01/10/25 11:13 BMI result Body Mass Index 27.6 Assessment & Plan Assessment & Plan (1) Cervicalgia: Code(s): M54.2 - Cervicalgia Plan: - Prescribed cyclobenzaprine 5 mg for muscle relaxation, to be taken every eight hours as needed, with caution advised due to potential drowsiness and extra precaution to be taken if she gets up in the middle of the night to urinate as she will be more drowsy than normal and we do not want her to have a fall. - Prescribed diclofenac for inflammation management, to be taken every 12 hours as needed, with instructions to avoid concurrent use of other NSAIDs. - Advised to use Tylenol, ice, heat, and topical treatments as adjunctive therapies. - Recommended follow-up if symptoms persist, with potential referral to physical therapy for further management. Patient was informed and verbally consented to the use of an ambient scribe for clinic note documentation during this visit. (2) Muscle spasms of neck: Code(s): M62.838 - Other muscle spasm Plan: as above (3) Prescription lost: Code(s): Z91.148 - Patient's other noncompliance with medication regimen for other reason Plan: - Provided a temporary prescription for Trulicity due to a delay in delivery from [facility], ensuring continuity of diabetes management. Medications: New cyclobenzaprine 5 mg PO Q8H PRN 20 tabs 0RF Muscle Spasm dulaglutide 1.5 mg (0.5 mL) subcut QWEEK 2 mL 0RF diclofenac sodium 50 mg PO Q12H PRN 20 tabs 0RF pain Coding Level of Care Code Est Pt Level 4 (33669) Diagnoses Cervicalgia M54.2 Muscle spasms of neck M62.838 Prescription lost Z91.148
--- OUTSIDE RECORDS SUMMARY | 2025-01-10 12:52 | XMS_ITS | Patient Health Record ---
Author Organization [facility] Address [address] [place] [address] Care Team Providers Care Sales Marketing Name Role Phone Corrine Spangler MD Primary Care Provider Unavaila Reese Green Unavailable [phone] Brittany Zepeda Unavailable [phone] Maritza Hazel Unavailable [phone] Allergies Allergen (clinical drug ingredient) Drug/Non Drug Allergy documented on EMR Reaction Allergy Type Onset Date Status Ciprofloxacin diarrhea Drug Allergy Act chey alendronate Fosamax diarrhea Drug Allergy Activ e hydrochlorothiazide Hydrochlorothiazide diarrhea Drug Aller gy Active levofloxacin Levofloxacin diarrhea Drug Allergy A ctive metformin Metformin HCl diarrhea Drug Allergy Act chey pravastatin Pravastatin Sodium diarrhea Drug Allergy Active simvastatin Simvastatin diarrhea Drug Allergy Act chey Results Component Value Reference Range Notes HEMOGLOBIN [...] PRN Not-Takin g aspirin 81 mg daily NotArnaud gonzales Fluticasone Propionate HFA 220 MCG/ACT Inhalation for 60 Days Active Calcium 1 tab Oral for 14 days Not-Taking Vitamin D 25 MCG (1000 UT) 1 tablet Orally Once a day for 30 day(s) Active Vitamin E Active [place] 3 Active Albuterol Active Magnesium 500 MG [...] 120 MG 2 tablets Orally Active carBAMazepine Arnaud gonzales Immunizations Vaccine Route Administration Date Status Comme [...] Problem Acquired hammer toe of right foot (3289712472149 105) Other hammer toe(s) (acquired), right foot (M20.41) Active confirmed Response to treatment,I mprovement Problem Type 2 diabetes mellitus with peripheral angiopathy (519948237) Type 2 diabetes mellitus with diabetic peripheral angiopathy without gangrene (E11.51) Active confirmed Problem Acquired hammer toe of left foot (3004346147410 103) Other hammer toe(s) (acquired), left foot (M20.42) Active confirmed Response to treatment,I mprovement Vital Signs Blood pressure diastolic 60 mm Hg 11/14/2024 Height 5 ft 1 in in 11/14/2024 Blood pressure systolic 120 mm Hg 11/14/2024 Weight 144 lbs 11/14/2024 BMI 27.21 kg/m2 11/14/2024 Procedures Procedure Date Ordered Date Performed Result Body Sit e 68774-HGLGVBH NAIL, 6 OR MORE 03/21/2024 N/A 03682-IFUY SKIN LESIONS, OVER 4 03/21/2024 N/A 89758-SFCIOUY NAIL, 6 OR MORE 06/07/2024 N/A 35121-DNFI SKIN LESIONS, OVER 4 06/07/2024 N/A 26269-ANGJHAZ NAIL, 6 OR MORE 08/22/2024 N/A 81742-EYKI SKIN LESIONS, OVER 4 08/22/2024 N/A 27868-NQUQHQR NAIL, 6 OR MORE 11/14/2024 N/A 37334-NZWJ SKIN LESIONS, OVER 4 11/14/2024 N/A Encounters Encounter Location Date Provider Diagnosis [address] [address] 03/21/2024 Reese Garcia Type 2 diabetes mellitus with diabetic peripheral angiopathy without gangrene E11.51 ; Tinea unguium B35.1 ; Pain in right toe(s) M79.674 and Pain in left toe(s) M79.[address] [address] 06/07/2024 Maritza Hazel Type 2 diabetes mellitus with diabetic peripheral angiopathy without gangrene E11.51 ; Tinea unguium B35.1 ; Pain in right toe(s) M79.674 and Pain in left toe(s) M79.[address] [address] 08/22/2024 Reese Garcia Type 2 diabetes mellitus with diabetic peripheral angiopathy without gangrene E11.51 ; Tinea unguium B35.1 ; Pain in right toe(s) M79.674 ; Pain in left toe(s) M79.675 ; Other hammer toe(s) (acquired), right foot M20.41 and Other hammer toe(s) (acquired), left foot M20.42 [facility] [place] [address] [place] [address] 11/14/2024 Reese Garcia Type 2 diabetes mellitus with diabetic peripheral angiopathy without gangrene E11.51 ; Tinea unguium B35.1 ; Pain in right toe(s) M79.674 and Pain in left toe(s) M79.[address] [facility] [address] 04/10/2024 Reese Garcia Assessments Encounter Date Diagnosis (ICD Code) Assessment Notes Treatment Notes Treatment Clinical Notes Section Notes 03/21/2024 Type 2 diabetes mellitus with diabetic [...] Test Name Order Date Hemoglobin A1c 09/03/2015 65661-FMAHHZY NAIL, 6 OR MORE 12/06/2015 13076-PITPUBQ NAIL, 6 OR MORE 09/03/2015 04002-IRKPTJU NAIL, 6 OR MORE 03/10/2016 98538-WXHTBUM NAIL, 6 OR MORE 06/09/2016 80463-TJGHYIK NAIL, 6 OR MORE 09/01/2016 23553-PHDBGQP NAIL, 6 OR MORE 11/24/2016 33481-JYWXKXU NAIL, 6 OR MORE 04/18/2021 39088-AWQEKGD NAIL, 6 OR MORE 07/04/2021 99679-HONCNEA NAIL, 6 OR MORE 09/16/2021 46299-OIVYNNR NAIL, 6 OR MORE 02/16/2017 01312-APHTWEL NAIL, 6 OR MORE 04/27/2017 02366-WPMQDVR NAIL, 6 OR MORE 07/20/2017 78625-MIFISRG NAIL, 6 OR MORE 09/28/2017 70571-XUJIOJG NAIL, 6 OR MORE 11/30/2017 72348-LZWVMLU NAIL, 6 OR MORE 02/15/2018 06747-YNBLDLP NAIL, 6 OR MORE 05/10/2018 68288-FRRDMVJ NAIL, 6 OR MORE 08/19/2018 43603-RSUPXNS NAIL, 6 OR MORE 11/04/2018 68059-CRESPBK NAIL, 6 OR MORE 01/24/2019 51170-ANWCIWU NAIL, 6 OR MORE 06/13/2019 95499-SNHQQSJ NAIL, 6 OR MORE 08/22/2019 76788-RAWVJPK NAIL, 6 OR MORE 10/31/2019 52681-RRFAMRF NAIL, 6 OR MORE 01/09/2020 91525-CFXOYKI NAIL, 6 OR MORE 03/19/2020 85617-DDCAKMG NAIL, 6 OR MORE 06/21/2020 21719-GNVICJC NAIL, 6 OR MORE 08/30/2020 30341-OSHNZBC NAIL, 6 OR MORE 11/05/2020 91016-SMETIIK NAIL, 6 OR MORE 01/10/2021 76392-QDLOEHF NAIL, 6 OR MORE 11/25/2021 03813-JUFUNQU NAIL, 6 OR MORE 01/30/2022 37763-OVLDVVQ NAIL, 6 OR MORE 04/14/2022 99616-HDPBNJR NAIL, 6 OR MORE 08/07/2022 94504-RVOEQZA NAIL, 6 OR MORE 10/16/2022 08224-OJZXCDU NAIL, 6 OR MORE 01/05/2023 82876-GYYRDIN NAIL, 6 OR MORE 03/16/2023 68837-FRVMOKN NAIL, 6 OR MORE 05/25/2023 90809-CFNCXAM NAIL, 6 OR MORE 08/06/2023 40243-MPXQVYS NAIL, 6 OR MORE 10/19/2023 11166-UHJRCCU NAIL, 6 OR MORE 03/21/2024 12718-PHSYVSL NAIL, 6 OR MORE 06/07/2024 50420-AVTPILT NAIL, 6 OR MORE 08/22/2024 73313-WZZMKEI NAIL, 6 OR MORE 11/14/2024 42344-Ujjwrtcs Plate 01/10/2021 78514-Tjliqepo Plate 11/24/2016 91137-Txvwlmrk Plate 09/01/2016 19070-Ftzzlkfy Plate 06/09/2016 90345-Hydeeahi Plate 03/10/2016 80855-Hqhdmgau Plate 09/03/2015 38963-Kjkhrfja Plate 12/06/2015 39163-FVXN SKIN LESIONS, OVER 4 11/15/19 25 78556-JKEL SKIN LESIONS, OVER 4 08/22/19 25 70267-FMWS SKIN LESIONS, OVER 4 06/07/20 24 75350-LUWT SKIN LESIONS, OVER 4 10/19/19 24 78837-GZIX SKIN LESIONS, OVER 4 03/21/20 24 35453-CZUU SKIN LESIONS, OVER 4 08/06/19 24 34241-GFDF SKIN LESIONS, OVER 4 05/25/20 23 37143-USDD SKIN LESIONS, OVER 4 08/15/20 23 91706-NRQT SKIN LESIONS, 2 TO 4 01/06/20 23 52238-NFQI SKIN LESIONS, 2 TO 4 10/17/19 23 20212-NSHD SKIN LESIONS, 2 TO 4 08/07/19 23 16628-KBZN SKIN LESIONS, 2 TO 4 04/14/20 22 27538-EPXX SKIN LESIONS, 2 TO 4 01/31/20 22 70920-HOKX SKIN LESIONS, 2 TO 4 11/26/19 22 08457-QQHB SKIN LESIONS, 2 TO 4 09/16/19 22 56568-KVDE SKIN LESIONS, 2 TO 4 07/04/20 21 Next Appt Details Provider Name:Reese Garcia , 02/16/2025 01:45:00 PM, [address], [place], [address], Insurance Providers Payer Name Payer Address Payer Phone Subscriber Number Group Number Insured Name Patient Relationship to Insured Coverage Start Date Coverage End Date Medicare National [employer] [address] [place] [address] [id number] Genie Escalera Self - patient is the insured [address] [place] [address] [place] [phone] [id number] Genie Escalera Self - patient is the insured Medical (General) History Medical History History ICD Code Arthritis Asthma Back,Hip,and Knee pain Cancer Cataracts Diabetes mellitus type 2 Gall bladder problems High blood pressure Polio chronic sinusitis Measles Mumps Chicken pox Transfusions Reflux Surgical History Surgery Date(Month/Year) gall bladder 1967 breast surgery hysterectomy bladder suspension vein surgery (LT leg) right carpal tunnel [facility] 05/04/2018 hand surgery- trigger finger right 2020 sx underarm 12/15/21 Hospitalization History Reason Date(Month/Year) [facility] ER-Coronavirus symptoms- not tested- said asthma and allergies 10/24/2019 [facility]- ER for coughing- lesion found in samuel ngs 09/13/2017 pneumonia 11/24-11/26/15
== END 2025-01-10 12:31 | disposition home or self-care (01) ==
PROVIDERS: PCP Internal Medicine; Visit Provider Physician Assistant
DX: M54.2 Cervicalgia (principal); M62.838 Other muscle spasm; Z91.148 Patient's other noncompliance with medication regimen for other reason

== ENCOUNTER → 2025-01-10 11:13 | Outpatient (BNVA) | payer MEDICARE, OTHER, SELFPAY | PROVIDERS: PCP Internal Medicine; Visit Provider Physician Assistant | DX: M54.2 Cervicalgia (principal); M62.838 Other muscle spasm; Z91.148 Patient's other noncompliance with medication regimen for other reason | CPT/HCPCS: 99212 ==

== ENCOUNTER 2025-02-21 10:29 | Outpatient (REF) | payer MEDICARE, OTHER, SELFPAY ==
--- OUTSIDE RECORDS SUMMARY | 2022-10-09 17:01 | XMS_ITS | Continuity of Care Document ---
Author Organization [facility] Address [address] [place] [address] [address] [place] [phone] Phone Care Team Providers Care Supervisor In Circuit Testing Name Role Phone Niall Dai MD, FACS, RVT Unavailable Unavailable Advance Directives Directive Yes / No Effective Date File Name No Information Encounters Encounter Description Practice Location Reason(s) For Visit Diagnoses Date Provider Providers Copied on Encounter [facility], [address] [facility] [address] [facility], [place], [id number], tel:[phone] [address] [facility] No Information Sep- 0 3 Agustín Garcia. [address] [facility], [facility] [address], [place], [address], [place]. tel:[phone] Referring Provider: Corrine Spangler MD S, [address] [place] [address], [address]. tel:[phone] Family History Family Member Type Diagnosis Age [...]
--- OUTSIDE RECORDS SUMMARY | 2025-02-21 11:35 | XMS_ITS | Data Portability ---
Author Organization [facility] Address [address] [place] [address] Care Team Providers Care Traffic Chief Name Role Phone [facility] Primary Care Provider [phone] [facility] OTHER [phone] Assessment No assessment recorded. Plan of Treatment Reminders Order Date Submit Date Provider Last Modified By Organization Details Last Modified Time Details Appointments None recorded. Lab urinalysis , dipstick 2022 023 [facility], [address] [place] [address], [address], 3 09:13:00 glucose, fingerstic k, blood 2022 023 [facility], [address] [place] [address], [phone], 3 09:13:00 culture, urine 2022 023 [place], [address] [place] [address], [place], [address], 3 16:06:30 Referral None recorded. Procedures None recorded. Surgeries None recorded. Imaging None recorded. Medication Orders Macrobid 100 mg capsule 2022 023 [id number], [address] [place], [address], 3 09:13:03 Patient TargetsNo targets recorded. Patient Instructions Encounter Date Encounter Id Patient Instructions Last Modified By Organization Details Last Modified Time 11/07/2022 [id number] nausea and vomiting: care instructions Not available [...] to have routine doctor appointments with their cancer genetic counselor and/or primary care provider to examine or [...] green veggies (e.g., broccoli, spinach, brussels sprouts) [place] veggies (e.g., carrots, sweet potatoes, pumpkin, winter [...] calluses are present, ask a doctor or clinical research manager about the best way to care for [...] Abnormal Flag Note LastModifiedBy Organization Detail LastModifiedTime 11/08/1911/14/2022 URINE CULTU RE, ROUTI NE urine culture, routine FINAL REPORT abnormal Not Available [facility] ([facility]) [address] [place], [address], 11/14/2022 08:07:39 11/08/1911/14/2022 URINE CULTU RE, ROUTI NE result 1 ENTERO BACTER SPECIE S abnormal 50,00 0-100 ,000 colon y formi ng units per mL Not Available [facility] ([facility]) [address] [facility], [place], [address], 11/14/2022 08:07:39 11/08/1911/14/2022 URINE CULTU RE, ROUTI [...] thopr im/Lopez lfa S Not Available [facility] ([facility]) [address] [facility], [place], [address], 11/14/2022 08:07:39 11/08/1911/07/2022 gluco se, finge rstic k, blood blood sugar - non fasting 221 mg/dL 80-140 = normal Not Available [address], [place], [address], 11/07/2022 08:38:45 11/08/19 23 11/07/2022 gluco se, finge rstic k, blood blood sugar - fasting mg/dL 80-125 = normal Not Available [address], [place], [address], 11/07/2022 08:38:45 11/08/19 23 11/07/2022 urina lysis , dipst ick Unknown Analyte Normal = light yellow Not Available [address], [place], [address], 11/07/2022 08:31:12 11/08/19 23 11/07/2022 urina lysis , dipst ick Unknown Analyte Yellow Not Available [address], [place], [address], 11/07/2022 08:31:12 11/08/19 23 11/07/2022 urina lysis , dipst ick Unknown Analyte Normal = clear Not Available [address], [place], [address], 11/07/2022 08:31:12 11/08/19 23 11/07/2022 urina lysis , dipst ick Unknown Analyte Clear Not Available [address], [place], [address], 11/07/2022 08:31:12 04/08/11/07/2022 urina lysis , dipst ick Unknown Analyte Normal = negati ve Not Available [facility]e [facility] [address], [place], [address], 11/07/2022 08:31:12 11/08/19 23 11/07/2022 urina lysis , dipst ick Unknown Analyte 250 mg/dL Not Available pete blankenship [address], [place], [address], 11/07/2022 08:31:12 11/08/19 23 11/07/2022 urina lysis , dipst ick Unknown Analyte Normal = Negati ve Not Available pete blankenship [address], [place], [address], 11/07/2022 08:31:12 11/08/19 23 11/07/2022 urina lysis , dipst ick Unknown Analyte Negati ve Not Available pete blankenship [address], [place], [address], 11/07/2022 08:31:12 11/08/19 23 11/07/2022 urina lysis , dipst ick Unknown Analyte Normal = Negati ve Not Available pete blankenship [address], [place], [address], 11/07/2022 08:31:12 11/08/19 23 11/07/2022 urina lysis , dipst ick Unknown Analyte Negati ve Not Available pete blankenship [address], [place], [place], [address], 11/07/2022 08:31:12 11/08/19 23 11/07/2022 urina lysis , dipst ick Unknown Analyte Normal = 1.010, 1.015, 1.020 Not Available pete blankenship [address], [place], [place], [address], 11/07/2022 08:31:12 11/08/19 23 11/07/2022 urina lysis , dipst ick Unknown Analyte 1.030 Not Available [facility] [address], [place], [address], 11/07/2022 08:31:12 11/08/19 23 11/07/2022 urina lysis , dipst ick Unknown Analyte Normal = Negati ve Not Available pete blankenship [address], [place], [address], 11/07/2022 08:31:12 11/08/19 23 11/07/2022 urina lysis , dipst ick Unknown Analyte Trace- intact Not Available [facility] [address], [place], [address], 11/07/2022 08:31:12 11/08/19 23 11/07/2022 urina lysis , dipst ick Unknown Analyte Normal = 6.5, 7.0, 7.5, 8.0 Not Available [facility] [address], [place], [address], 11/07/2022 08:31:12 11/08/19 23 11/07/2022 urina lysis , dipst ick Unknown Analyte 5.5 Not Available [address], [place], [address], 11/07/2022 08:31:12 11/08/19 23 11/07/2022 urina lysis , dipst ick Unknown Analyte Normal = Negati ve Not Available [address], [place], [address], 11/07/2022 08:31:12 11/08/19 23 11/07/2022 urina lysis , dipst ick Unknown Analyte 30 mg/dL Not Available pete blankenship [address], [place], [address], 11/07/2022 08:31:12 11/08/1911/07/2022 urina lysis , dipst ick Unknown Analyte Normal = 0.2, 1.0 Not Available [address] [place] [address], [place], [address], 11/07/2022 08:31:12 11/08/19 23 11/07/2022 urina lysis , dipst ick Unknown Analyte 0.2 E.U./d L Not Available [facility] [address], [place], [address], 11/07/2022 08:31:12 11/08/19 23 11/07/2022 urina lysis , dipst ick Unknown Analyte Normal = Negati ve Not Available [address], [place], [address], 11/07/2022 08:31:12 11/08/1911/07/2022 urina lysis , dipst ick Unknown Analyte Negati ve Not Available [address] [place] [address], [place], [address], 11/07/2022 08:31:12 11/08/19 23 11/07/2022 urina lysis , dipst ick Unknown Analyte Normal = Negati ve Not Available [facility] [address], [place], [address], 11/07/2022 08:31:12 11/08/19 23 11/07/2022 urina lysis , dipst ick Unknown Analyte Small Not Available [address] [place] [address], [place], [address], 11/07/2022 08:31:12 Result Notes None recorded. Problems Name Problem SNOMED Code Status Onset Date Resolution Date Notes Provider Name and Address Organization Details Recorded Time Diabetes mellitus 13570341 Active 2022 OLIVIA DEPINTO null, [place] - [facility] 3 08:21:08 Osteoporosi s 66156201 Active 2022 OLIVIA DEPINTO null, PA - [facility] 3 08:21:27 Gastroesoph ageal reflux disease 559779622 Active 2022 OLIVIA DEPINTO null, PA - [facility] 3 08:21:32 Hypertensiv e disorder 74749885 Active 2022 OLIVIA DEPINTO null, PA - [facility] 3 08:21:37 Asthma 733340880 Active 2022 OLIVIA DEPINTO null, PA - [facility] 3 08:21:49 Malignant tumor of breast 289715713 Completed 202211/07/20222003 OLIVIA DEPINTO null, PA - [...] Name and Address Organization Details Recorded Time 342752 hydrochlo rothiazid e medicatio n diarrhea Not available Not available 11/07/2022 5487 RxNorm OLIVIA DEPINTO null, PA - [facility] 3 08:18:50 562898 pravastat in medicatio n diarrhea Not available Not available 11/07/2022 23670 RxNorm OLIVIA DEPINTO null, PA - [facility] 3 08:19:10 042445 metformin medicatio n diarrhea Not available Not available 11/07/2022 6809 RxNorm OLIVIA DEPINTO null, PA - [facility] 3 08:19:19 271832 ciproflox acin medicatio n diarrhea Not available Not available 11/07/2022 2551 RxNorm OLIVIA DEPINTO null, PA - [facility] 3 08:19:43 471843 alendrona te sodium medicatio n diarrhea Not available Not available 11/07/2022 10148 2 RxNorm OLIVIA DEPINTO null, PA - [facility] 3 08:19:52 271231 Farxiga medicatio n diarrhea Not available Not available 11/07/2022 80901 72 RxNorm OLIVIA DEPINTO null, PA - [...] blood by Pulse oximetry Heart rate Systolic And Diastolic Provider Name and Address Organization Details Last Updated DateTime 3 154.94 cm 27 kg/m2 26518.7 1 g 0 18 /min 97.2 [degF] 96 % 96 % 75 /min 151/73 mm[Hg] OLIVIA FEMI [employer] 08:27:08 Social History Question Answer Notes LastModified by Myze Details LastModified Time Tobacco Smoking Status Never Smoker OLIVIA vergara [employer] 11/07/2022 08:22:09 Have You Recently Traveled Abroad? No Information not available 11/07/2022 Sex: Unknown Functional Status Question Answer Note LastModified by Myze Details LastModified Time Do you use any illicit or recreational drugs? No Information not available 11/07/2022 Do you or have you ever used any other forms of tobacco or nicotine? No Information not available 11/07/2022 What is your level of alcohol consumption? None Information not available 11/07/2022 Mental Status None recorded. Family History Relationship [...] [facility] 11/07/2022 08:16:22 Pneumococcal conjugate PCV20, polysaccharide DGO547 conjugate, adjuvant, PF 3 completed OLIVIA DEPINTO [...] SNOMED-CT Code Diagnosis ICD10 Code Diagnosis Note [id number] [facility] [address] [place] [address] 05/01/2018 11:10:17 05/01/2018 12:08:27 [id number] [facility] [address] [place] [address] 07/04/2018 08:22:27 07/04/2018 08:50:56 [id number] [facility] [address] [address] [place] [address] 10/16/2016 13:39:10 10/16/2016 15:34:24 [id number] [facility] [address] [address] [place] [address] 10/16/2018 08:16:49 10/16/2018 09:03:27 [id number] [facility] [address] [address] [place] [address] 12/05/2016 08:05:07 12/05/2016 09:01:39 [id number] [address] [facility] [address] [place] [address] 08/09/2017 08:51:37 08/09/2017 09:35:02 [id number] [facility] [facility] [address] [place] [address] 08/06/2015 10:01:18 08/06/2015 11:48:14 [id number] [facility] [address] [place] [address] 09/15/2016 10:47:05 09/15/2016 12:43:09 [id number] [facility] [address] [place] [address] 10/19/2016 14:20:17 10/19/2016 16:00:31 [id number] Luis Pierce NP [address] [place] [address] 11/07/2022 08:06:50 11/07/2022 09:16:29 Acute urinary tract infection 192505378 N39.0 Diabetes m ellitus screening 310902938 Z13.1 Type 2 lois betes mellitus 37406706 E11.22 Health Concerns Section Related Observation LastModified by Organization Detai ls LastModified Time None Recorded Concern Status LastModified by Organization Details LastModified Time None Recorded Advance Directives Directive None Recorded Payers Insurance Date Sequence Insurance Name Policy Number Policy Mercedes Covered Member ID Mercedes Member ID Guarantor Name 11/07/2022 1 MEDICARE B-[place]: [facility] Genie Harrington [id number] Genie Harrington 11/07/2022 2 [facility] Genie Grimes-Devin kim [id number] Genie Harrington Notes Date Note Type Note Provider Name and Address Organization Details Recorded Time 11/07/2022 text/html Nausea UCReporte d bypatient.source of [...] History of renal stone or bladder issues. frequency and urgency x 3 day. denies any fever or fever with chills, denies any History of renal stone or bladder issues. Luis Pierce NP [address] [place], [address], [place] - [facility] 11/07/2022 09:13:42 OBGyn Episode No OBEpisode recorded.
--- OUTSIDE RECORDS SUMMARY | 2025-02-21 11:35 | XMS_ITS | Patient Health Record ---
Author Organization [facility] Address [address] [place] [address] Care Team Providers Care 7Th Grade Teacher Name Role Phone Corrine Spangler MD Primary Care Provider Reese Mancilla Unavailable [phone] Maritza Hazel Unavailable [phone] Allergies Allergen (clinical drug ingredient) Drug/Non Drug [...] Notes Start Date End Date Status Vitamin E Active Trulicity 1.5 MG/0.5ML Subcutaneous; Duration: 84 Days Active Fluticasone Propionate HFA 220 MCG/ACT Inhalation; Duration: 60 Days Active Montelukast Sodium 10 MG 1 tablet Orally Once a day Not-Taking Ozempic Active Calcium 1 tab Oral; Duration: 14 days Not-Taking [place] 3 Active Losartan Potassium 100 MG Orally Not-Taking Albuterol Active dilTIAZem HCl 120 MG 2 tablets Orally Active Trulicity 3 MG/0.5ML as directed Subcutaneous Not-Taking Fish Oil 1360 MG 1 capsule Orally Once a day; Duration: 30 day(s) Not-Taking Prolia 60 MG/ML as directed Subcutaneous 2 TIMES YEARLY Not-Taking aspirin 81 mg daily Not-Ta christian carBAMazepine Not-Ta christian Flovent HFA PRN Active Januvia 100 MG Orally Not-T aking glipiZIDE XL 10 MG 1 tablets Orally Twice daily Active Magnesium 500 MG 1 tablet with a meal Orally Once a day; Duration: 30 day(s) Active ProAir HFA PRN Not-Takin g Vitamin B 12 100 MCG as directed Orally Active Vitamin C Active Vitamin D 25 MCG (1000 UT) 1 tablet Orally Once a day; Duration: 30 day(s) Active Methenamine Hippurate 1 GM 1 tablet Orally Twice a day Active Omeprazole 20 MG 1 capsule 30 minutes before morning meal Orally Once a day Active Probiotic - as directed Orally Active Turmeric Curcumin 500 MG as directed Orally Active Immunizations Vaccine Route Administration Date Status Comme nts Influenza Unknown 04/27/2017 Administered Influenza Unknown 05/17/2018 Administered Influenza Unknown 03/22/2019 Administered Influenza Unknown 03/27/2020 Administered Influenza Unknown 04/13/2022 Administered Influenza Unknown 04/02/2023 Administered Pneumococcal Unknown 04/13/2022 Administered COVID-19 Pfizer BioNTech Vaccine Unknown 04/29/2021 Administered 1st 09/10/20 2nd 10/01/20 Social History Tobacco Use: Social History Observation [...] Problem Acquired hammer toe of right foot (3514059976624 105) Other hammer toe(s) (acquired), right foot (M20.41) Active confirmed Response to treatment,I mprovement Problem Type 2 diabetes mellitus with peripheral angiopathy (319762167) Type 2 diabetes mellitus with diabetic peripheral angiopathy without gangrene (E11.51) Active confirmed Problem Acquired hammer toe of left foot (7939357012861 103) Other hammer toe(s) (acquired), left foot (M20.42) Active confirmed Response to treatment,I mprovement Vital Signs Blood pressure diastolic 60 mm Hg 11/14/2024 Height 5 ft 1 in in 11/14/2024 Blood pressure systolic 120 mm Hg 11/14/2024 Weight 144 lbs 11/14/2024 BMI 27.21 kg/m2 11/14/2024 Procedures Procedure Date Ordered Date Performed Result Body Sit e 51741-XTMOMKZ NAIL, 6 OR MORE 03/21/2024 N/A 19715-ITBQ SKIN LESIONS, OVER 4 03/21/2024 N/A 51689-PXWYOPV NAIL, 6 OR MORE 06/07/2024 N/A 02772-NLTK SKIN LESIONS, OVER 4 06/07/2024 N/A 05835-FDETIMF NAIL, 6 OR MORE 08/22/2024 N/A 01014-TEJE SKIN LESIONS, OVER 4 08/22/2024 N/A 61139-KBKYFFP NAIL, 6 OR MORE 11/14/2024 N/A 95025-WUAG SKIN LESIONS, OVER 4 11/14/2024 N/A Encounters Encounter Location Date Provider Diagnosis [address] [address] 03/21/2024 Reese Garcia Type 2 diabetes mellitus with diabetic peripheral angiopathy without gangrene E11.51 ; Tinea unguium B35.1 ; Pain in right toe(s) M79.674 and Pain in left toe(s) M79.[address] [address] 06/07/2024 Maritza Hazel Type 2 diabetes mellitus with diabetic peripheral angiopathy without gangrene E11.51 ; Tinea unguium B35.1 ; Pain in right toe(s) M79.674 and Pain in left toe(s) M79.[address] [address] 08/22/2024 Reese Garcia Type 2 diabetes mellitus with diabetic peripheral angiopathy without gangrene E11.51 ; Tinea unguium B35.1 ; Pain in right toe(s) M79.674 ; Pain in left toe(s) M79.675 ; Other hammer toe(s) (acquired), right foot M20.41 and Other hammer toe(s) (acquired), left foot M20.[address] [facility] [address] 11/14/2024 Reese Garcia Type 2 diabetes mellitus with diabetic peripheral angiopathy without gangrene E11.51 ; Tinea unguium B35.1 ; Pain in right toe(s) M79.674 and Pain in left toe(s) M79.675 [facility] [address] 04/10/2024 Reese Garcia [address] [address] 02/15/2025 Reese Garcia Assessments Encounter Date Diagnosis (ICD [...] Test Name Order Date Hemoglobin A1c 09/03/2015 39914-CGUDOAH NAIL, 6 OR MORE 12/06/2015 07609-QPKMLZP NAIL, 6 OR MORE 09/03/2015 02836-DTBAHRD NAIL, 6 OR MORE 03/10/2016 86482-WBMHHSP NAIL, 6 OR MORE 06/09/2016 54021-EWNCFPN NAIL, 6 OR MORE 09/01/2016 12433-MTPFUIZ NAIL, 6 OR MORE 11/24/2016 50969-VOSDJDX NAIL, 6 OR MORE 04/18/2021 35332-EAZQLZY NAIL, 6 OR MORE 07/04/2021 78071-CBXAZVN NAIL, 6 OR MORE 09/16/2021 83758-GPNVDNG NAIL, 6 OR MORE 02/16/2017 15584-ZHOBJWC NAIL, 6 OR MORE 04/27/2017 61422-HOPVIRV NAIL, 6 OR MORE 07/20/2017 32210-GUNVYMR NAIL, 6 OR MORE 09/28/2017 01102-CGWGHZP NAIL, 6 OR MORE 11/30/2017 89746-IQIWKDV NAIL, 6 OR MORE 02/15/2018 64251-OYREYSC NAIL, 6 OR MORE 05/10/2018 94405-TBLVIRB NAIL, 6 OR MORE 08/19/2018 97104-RVNRAXE NAIL, 6 OR MORE 11/04/2018 01432-ASFVKDO NAIL, 6 OR MORE 01/24/2019 41703-HDCHLGW NAIL, 6 OR MORE 06/13/2019 29197-LTFUFGF NAIL, 6 OR MORE 08/22/2019 09316-ORZCBCB NAIL, 6 OR MORE 10/31/2019 43310-NHWLLJI NAIL, 6 OR MORE 01/09/2020 27693-ATNQBIY NAIL, 6 OR MORE 03/19/2020 41365-KNMCSHG NAIL, 6 OR MORE 06/21/2020 87539-VILMYIT NAIL, 6 OR MORE 08/30/2020 49333-MLXOEHO NAIL, 6 OR MORE 11/05/2020 63689-TEICXBV NAIL, 6 OR MORE 01/10/2021 57226-WLOYQOH NAIL, 6 OR MORE 11/25/2021 85221-NMRHWNS NAIL, 6 OR MORE 01/30/2022 25632-RPNNILT NAIL, 6 OR MORE 04/14/2022 45119-OUOYBVU NAIL, 6 OR MORE 08/07/2022 15149-ZZZCHGI NAIL, 6 OR MORE 10/16/2022 80870-ILMMSYW NAIL, 6 OR MORE 01/05/2023 98883-LDOGHUQ NAIL, 6 OR MORE 03/16/2023 50237-RBMFFPW NAIL, 6 OR MORE 05/25/2023 69257-OIQVEZY NAIL, 6 OR MORE 08/06/2023 54334-ROBFVBR NAIL, 6 OR MORE 10/19/2023 94863-EODFULN NAIL, 6 OR MORE 03/21/2024 28903-MZOLBQM NAIL, 6 OR MORE 06/07/2024 05518-FPKAIPH NAIL, 6 OR MORE 08/22/2024 23640-PODUIHU NAIL, 6 OR MORE 11/14/2024 62242-Cbftokio Plate 01/10/2021 73429-Hrginmyt Plate 11/24/2016 70411-Ykqamdcs Plate 09/01/2016 26955-Xvryzxxd Plate 06/09/2016 99092-Mdlskxsl Plate 03/10/2016 26927-Sgsnzzmi Plate 09/03/2015 35302-Drizcfft Plate 12/06/2015 43976-RXII SKIN LESIONS, OVER 4 11/15/19 25 24104-QMIP SKIN LESIONS, OVER 4 08/22/19 25 16198-NSKJ SKIN LESIONS, OVER 4 06/07/20 24 83253-DVCA SKIN LESIONS, OVER 4 10/19/19 24 89248-DSOM SKIN LESIONS, OVER 4 03/21/20 24 38236-GMFP SKIN LESIONS, OVER 4 08/06/19 24 87638-REDS SKIN LESIONS, OVER 4 05/25/20 23 16352-GPKZ SKIN LESIONS, OVER 4 03/16/20 23 50066-NUVM SKIN LESIONS, 2 TO 4 01/06/20 23 15050-RWLE SKIN LESIONS, 2 TO 4 10/17/19 23 03829-RXZI SKIN LESIONS, 2 TO 4 08/07/19 23 85883-MRQT SKIN LESIONS, 2 TO 4 04/14/20 22 00978-LAAJ SKIN LESIONS, 2 TO 4 01/31/20 22 72502-WGPL SKIN LESIONS, 2 TO 4 11/26/19 22 97396-PUDH SKIN LESIONS, 2 TO 4 09/16/19 22 89785-ZHMW SKIN LESIONS, 2 TO 4 07/04/20 21 Next Appt Details Provider Name:Reese Garcia , 05/08/2025 01:30:00 PM, [address], [place], [address], Insurance Providers Payer Name Payer Address Payer Phone Subscriber Number Group Number Insured Name Patient Relationship to Insured Coverage Start Date Coverage End Date Medicare National Govt Svcs Inc [address] [facility] [place] [address] [id number] Genie Escalera Self - patient is the insured [address] [place] [address] [place] [phone] [id number] Genie Escalera Self - patient is the insured Medical (General) History Medical History History ICD Code Arthritis Asthma Back,Hip,and Knee pain Cancer Cataracts Diabetes mellitus type 2 Gall bladder problems High blood pressure Polio chronic sinusitis Measles Mumps Chicken pox Transfusions Reflux Surgical History Surgery Date(Month/Year) gall bladder 1967 breast surgery hysterectomy bladder suspension vein surgery (LT leg) right carpal tunnel [facility] [place] [place] 05/04/2018 hand surgery- trigger finger right 2020 sx underarm 12/15/21 Hospitalization History Reason Date(Month/Year) [facility] [place] [place] ER-Coronavirus symptoms- not tested- said asthma and allergies 10/24/2019 [facility] [place] [place] for coughing- lesion found in samuel ngs 09/13/2017 pneumonia 11/24-11/26/15
--- OUTSIDE RECORDS SUMMARY | 2025-02-21 11:36 | XMS_ITS | Patient Health Record ---
Author Organization [facility] Address [address] [place] [address] Care Team Providers Care Topography Technician Name Role Phone Corrine Spangler MD Primary Care Provider Nishant Amaro [phone] Allergies Allergen (clinical drug ingredient) Drug/Non Drug Allergy documented on EMR Reaction Allergy Type Onset Date Status sulfamethoxazole / trimethoprim Bactrim Unknown Drug Allergy [...] hydrochlorothiazide Hydrochlorothiazide Unknown Drug Aller gy Active cephalexin Cephalexin Unknown Drug Allergy Activ e Reason For Referral No Information Medications Medication [...] Problem Status W/U Status Risk Notes Problem 00401941 Pancreatic cyst (K86.2) Active confirmed Problem 01627496 Constipation, unspecified constipation type (K59.00) Active confirmed Problem 732890144 Abdominal pain, left lower quadrant (R10.32) Active confirmed Problem 07257289 Irritable bowel syndrome, unspecified type (K58.9) Active confirmed Problem 88739100 Hypertension, unspecified type (I10) Active confirmed Plan Of Treatment No Information Insurance Providers Payer Name Payer Address Payer Phone Subscriber Number Group Number Insured Name Patient Relationship to Insured Coverage Start Date Coverage End Date MEDICARE OF [place] [address] [place] [address] [id number] HOOD CASTILLO Self - [facility] the [facility] [address] [place] [address] [id number] HOOD CASTILLO Self - patient is the insured Medical (General) History Medical History History ICD Code Chronic diarrhea/IBS-colonos copy biopsies negative for colitis in 1994 and labs neg. for celiac disease in 2009 Colon polyps-tubular adenoma s removed in 1999 and 2009-colonoscopy was negative in 2004 except for AVM's NIDDM Hyperlipidemia Hypertension Breast fvowsy-7314-suqrg lumpectomy with XRT UTI's Denies PR,CVA,renal disease Bronchitis Pancreatic cysts seen on MRI in 09/[address] scan in November of 2022 Asthma Surgical History Surgery Date(Month/Year) Cholecystectomy JOANA Rectovaginal fistula repair in 1994 Bladder suspension Veins in LE's Breast cancer as above
== END 2025-02-21 10:30 | disposition home or self-care (01) ==
LOC: HO.MAMMO 10:29
PROVIDERS: PCP Internal Medicine; Visit Provider Internal Medicine
DX: Z12.31 Encounter for screening mammogram for malignant neoplasm of breast (principal)
CPT/HCPCS: 77063; 77067

== ENCOUNTER → 2025-02-21 11:45 | Outpatient (BNV) | payer MEDICARE, OTHER, SELFPAY | PROVIDERS: PCP Internal Medicine; Visit Provider Radiology Body Imaging | DX: Z12.31 Encounter for screening mammogram for malignant neoplasm of breast (principal) | CPT/HCPCS: 77063; 77067 ==

== ENCOUNTER 2025-02-28 08:44 | Outpatient (REF) | payer MEDICARE, OTHER, SELFPAY ==
--- NOTE | ~2025-02-28 | XR_ITS ---
EXAMINATION: XR LUMBOSACRAL SPINE CLINICAL INFORMATION: M54.50 - Low back pain, unspecified COMPARISON: May 12, 2024 TECHNIQUE: Three views of the lumbosacral spine. FINDINGS: Severe atrophic ossifications are present in the aorta. There is moderate degenerative change of the left SI joint. There are 5 nonrib-bearing lumbar segments. There is 32 degrees levoscoliosis. T12-L1: Mild disc space narrowing L1-L2: Endplate sclerosis and osteophytes are evident. There is mild facet sclerosis L2-L3: There is moderate disc space narrowing with endplate sclerosis and osteophytes. There is moderate facet osteoarthritis L3-L4: There is severe disc space narrowing with vacuum phenomena, endplate sclerosis, and osteophytes. There is moderate to severe facet osteoarthritis L4-L5: There is mild disc space narrowing. There is severe facet osteoarthritis L5-S1: There is subtle anterolisthesis and severe facet osteoarthritis. XR/XR lumbar spine 2-3V IMPRESSION: Moderate levoscoliosis and multilevel degenerative changes, stable to slightly progressed since the prior. Electronically signed by: Varun Bazan MD 02/28/2025 10:44 AM EDT
== END 2025-02-28 08:45 | disposition home or self-care (01) ==
LOC: HO.HMGCX 08:44
PROVIDERS: PCP Internal Medicine; Visit Provider Physician Assistant Medical
DX: M54.50 Low back pain, unspecified (principal); M79.18 Myalgia, other site; N28.1 Cyst of kidney, acquired; K59.00 Constipation, unspecified
CPT/HCPCS: 72100; 99212

== ENCOUNTER 2025-02-28 08:44 | Outpatient (AMB) | payer MEDICARE, OTHER, SELFPAY ==
--- OUTSIDE RECORDS SUMMARY | 2025-02-28 09:00 | XMS_ITS | Clinical Summary ---
Author Organization [address] [facility] Address [address] [place] [address] Phone Care Team Providers Care Fiction And Nonfiction Writer Prose Name Role Phone Corrine Spangler MD Primary Care Provider [phone] Encounters Date Type Department Care Team Description 02/23/2025 Lab Requisition [facility] - Main Lab [address] [place] [address] Mamadou Schmid PA Urinary tract infection, site not specified from Last 3 Months Social History Tobacco Use Types Packs/Day Years Used Date Smoking Tobacco: Never Assessed Comments Unknown Sex and Gender Information Value Date Recorded Sex Assigned at Not on file Legal Sex Female 1:28 PM EDT Gender Identity Not on file Sexual Orientation Not on file Plan of Treatment Health Maintenance Due Date Last Done Comments DTaP,Tdap,and Td Vaccines (1 - Tdap) 1959 Pneumococcal Vaccine: 50+ Ye ars (1 of 1 - PCV) 1988 Zoster Vaccines (1 of 2) 1988 RSV Immunization Adult Patie nts (1 - 1-dose 75+ series) 2013 COVID-19 Vaccine ( - 2023-2 5 season) 2024 Depression Screening 08/02/2024 Falls Risk Assessment 02/24/2025 Medicare Annual Wellness Visit 02/24/2025 Osteoporosis Screening (Bone Density Screening) 02/24/2025 Social Influencers of Health Screening 02/24/2025 Influenza Vaccine (#1) 2025 HIB Vaccines Aged Out No longer eligi ble based on patient's age to complete this topic HPV Vaccines Aged Out No longer eligi ble based on patient's age to complete this topic Hepatitis A Vaccines Aged Out No long er eligible based on patient's age to complete this topic Hepatitis B Vaccines Aged Out No long er eligible based on patient's age to complete this topic IPV Vaccines Aged Out No longer eligi ble based on patient's age to complete this topic MMR Vaccines Aged Out No longer eligi ble based on patient's age to complete this topic Meningococcal ACWY Vaccine Aged Out N o longer eligible based on patient's age to complete this topic Meningococcal B Vaccine Aged Out No l onger eligible based on patient's age to complete this topic RSV Immunization Patients Un marly 20 months Aged Out No longer eligible b ased on patient's age to complete this topic Varicella Vaccines Aged Out No longer eligible based on patient's age to complete this topic Procedures Procedure Name Priority Date/Time Associated Diagnosis Comments CULTURE URINE Routine 02/23/2025 11:40 AM EDT Urinary tract infection, site not specified from Last 3 Months Results * (ABNORMAL) Culture urine (02/23/2025 11:40 AM EDT) Culture, Urine >=100,000 CFU/mL Enterobacter cloacae complex(A) [place] 02/25/2025 10:20 AM EDT [facility] Comment: This is an edited result. Previous organism was Gram negative bacilli on 02/24/2025 at 0952 EDT. Urine Urine specimen obtained by clean catch procedure / Unknown 02/23/2025 11:40 AM EDT 02/23/2025 1:39 PM EDT Narrative Organism Antibiotic Method Susceptibility Enterobacter cloacae complex Amoxicillin/Clavulanate [place] >=32 ug/ml: Resistant Enterobacter cloacae complex Cefoxitin [place] >=64 ug/ml: Resistant Enterobacter cloacae complex Ceftazidime [place] >=32 ug/ml: Resistant Enterobacter cloacae complex Cefepime [place] 1 ug/ml: Susceptible Enterobacter cloacae complex Meropenem [place] <=0.25 ug/ml: Susceptible Enterobacter cloacae complex Amikacin [place] 2 ug/ml: Susceptible Enterobacter cloacae complex Gentamicin [place] <=1 ug/ml: Susceptible Enterobacter cloacae complex Ciprofloxacin [place] <=0.06 ug/ml: Susceptible Enterobacter cloacae complex Levofloxacin [place] <=0.12 ug/ml: Susceptible Enterobacter cloacae complex Nitrofurantoin [place] 64 ug/ml: Intermediate Enterobacter cloacae complex Trimethoprim/Sulfamethoxazo le [place] <=20 ug/ml: Susceptible Mamadou [facility]CROBIOLOGY - GENERAL COREY MUNOZ Final Result [facility] [address] [place] [address], [place] [phone] from Last 3 Months Insurance MEDICARE [facility] Care Teams Fiction And Nonfiction Writer Prose Relationship Specialty Start Date End Date Corrine Spangler MD [address] [place] [address] PCP - General Internal Medicine 02/23/25
--- OUTSIDE RECORDS SUMMARY | 2025-02-28 09:00 | XMS_ITS | Patient Health Record ---
Author Organization [facility] Address [address] [place] [address] Care Team Providers Care Nursing Specialist Name Role Phone Corrine Spangler MD Primary Care Provider Reese Mancilla Unavailable [phone] Maritza Hazel Unavailable [phone] Allergies Allergen (clinical drug ingredient) Drug/Non Drug [...] 1 tab Oral; Duration: 14 days Not-Taking [place] 3 Active Losartan Potassium 100 MG Orally [...] Problem Acquired hammer toe of right foot (3542397382616 105) Other hammer toe(s) (acquired), right foot (M20.41) Active confirmed Response to treatment,I mprovement Problem Type 2 diabetes mellitus with peripheral angiopathy (284554617) Type 2 diabetes mellitus with diabetic peripheral angiopathy without gangrene (E11.51) Active confirmed Problem Acquired hammer toe of left foot (0755702282496 103) Other hammer toe(s) (acquired), left foot (M20.42) Active confirmed Response to treatment,I mprovement Vital Signs Blood pressure diastolic 60 mm Hg 11/14/2024 Height 5 ft 1 in in 11/14/2024 Blood pressure systolic 120 mm Hg 11/14/2024 Weight 144 lbs 11/14/2024 BMI 27.21 kg/m2 11/14/2024 Procedures Procedure Date Ordered Date Performed Result Body Sit e 11769-PZBLWRK NAIL, 6 OR MORE 03/21/2024 N/A 95517-FXVV SKIN LESIONS, OVER 4 03/21/2024 N/A 45267-OEXENMV NAIL, 6 OR MORE 06/07/2024 N/A 06399-LQWU SKIN LESIONS, OVER 4 06/07/2024 N/A 76647-BLBGMOY NAIL, 6 OR MORE 08/22/2024 N/A 20744-KXCV SKIN LESIONS, OVER 4 08/22/2024 N/A 57102-KFMOLZV NAIL, 6 OR MORE 11/14/2024 N/A 20639-OFBR SKIN LESIONS, OVER 4 11/14/2024 N/A Encounters Encounter Location Date Provider Diagnosis [address] [address] 03/21/2024 Reese Garcia Type 2 diabetes mellitus with diabetic peripheral angiopathy without gangrene E11.51 ; Tinea unguium B35.1 ; Pain in right toe(s) M79.674 and Pain in left toe(s) M79.[address] [address] 06/07/2024 Maritza Hazel Type 2 diabetes mellitus with diabetic peripheral angiopathy without gangrene E11.51 ; Tinea unguium B35.1 ; Pain in right toe(s) M79.674 and Pain in left toe(s) M79.[address] [address] 08/22/2024 Reese Garcia Type 2 diabetes mellitus with diabetic peripheral angiopathy without gangrene E11.51 ; Tinea unguium B35.1 ; Pain in right toe(s) M79.674 ; Pain in left toe(s) M79.675 ; Other hammer toe(s) (acquired), right foot M20.41 and Other hammer toe(s) (acquired), left foot M20.[address] [facility] [address] 11/14/2024 Reese Garcia Type 2 diabetes mellitus with diabetic peripheral angiopathy without gangrene E11.51 ; Tinea unguium B35.1 ; Pain in right toe(s) M79.674 and Pain in left toe(s) M79.[address] [facility] [address] 04/10/2024 Reese Garcia [address] [address] 02/15/2025 Reese Garcia Assessments Encounter Date Diagnosis [...] Test Name Order Date Hemoglobin A1c 09/03/2015 90442-YSKQJTZ NAIL, 6 OR MORE 12/06/2015 78688-ULBRPQK NAIL, 6 OR MORE 09/03/2015 12342-TLDPUKD NAIL, 6 OR MORE 03/10/2016 87418-LVKIFYI NAIL, 6 OR MORE 06/09/2016 72598-CDHKRBD NAIL, 6 OR MORE 09/01/2016 60474-HRAHFPJ NAIL, 6 OR MORE 11/24/2016 79622-XOBZSZP NAIL, 6 OR MORE 04/18/2021 72225-AFXUSQQ NAIL, 6 OR MORE 07/04/2021 19815-JEMCYFG NAIL, 6 OR MORE 09/16/2021 69455-QDWSCLU NAIL, 6 OR MORE 02/16/2017 23811-NBXCHOD NAIL, 6 OR MORE 04/27/2017 98839-FNVNVVI NAIL, 6 OR MORE 07/20/2017 38348-KKEFMPZ NAIL, 6 OR MORE 09/28/2017 73274-UKWTRLA NAIL, 6 OR MORE 11/30/2017 34912-EEGHIKD NAIL, 6 OR MORE 02/15/2018 70297-WJHTWVU NAIL, 6 OR MORE 05/10/2018 17321-NERZQHW NAIL, 6 OR MORE 08/19/2018 87060-SBNNKFW NAIL, 6 OR MORE 11/04/2018 93169-TSEBZPA NAIL, 6 OR MORE 01/24/2019 49587-LEFSEWP NAIL, 6 OR MORE 06/13/2019 54083-XNQDLZQ NAIL, 6 OR MORE 08/22/2019 93671-VEMDRWN NAIL, 6 OR MORE 10/31/2019 55339-AEBIRER NAIL, 6 OR MORE 01/09/2020 20179-QUYYHQA NAIL, 6 OR MORE 03/19/2020 01470-XKIXUJN NAIL, 6 OR MORE 06/21/2020 06833-HKCJXNC NAIL, 6 OR MORE 08/30/2020 20062-TIEOQAS NAIL, 6 OR MORE 11/05/2020 82442-GFRWUXN NAIL, 6 OR MORE 01/10/2021 64938-HDUNJPL NAIL, 6 OR MORE 11/25/2021 22053-FIIAEDJ NAIL, 6 OR MORE 01/30/2022 93147-TEOSNHS NAIL, 6 OR MORE 04/14/2022 27750-ITLZMQA NAIL, 6 OR MORE 08/07/2022 99628-TCYSNQV NAIL, 6 OR MORE 10/16/2022 55809-LDSULEK NAIL, 6 OR MORE 01/05/2023 53044-EFOKKOR NAIL, 6 OR MORE 03/16/2023 84109-ETGNSPT NAIL, 6 OR MORE 05/25/2023 21228-RHMOWOO NAIL, 6 OR MORE 08/06/2023 20544-LBLMUHO NAIL, 6 OR MORE 10/19/2023 38013-GFCVYTY NAIL, 6 OR MORE 03/21/2024 19501-YRWKUMZ NAIL, 6 OR MORE 06/07/2024 43307-ICKPOZK NAIL, 6 OR MORE 08/22/2024 47290-KLVCQNM NAIL, 6 OR MORE 11/14/2024 41345-Wmlnuhpq Plate 01/10/2021 54350-Txmeuwrr Plate 11/24/2016 74530-Htzvfqho Plate 09/01/2016 56890-Qpbrfdco Plate 06/09/2016 05458-Kyxaoese Plate 03/10/2016 86690-Bcukzgap Plate 09/03/2015 06436-Ektyzule Plate 12/06/2015 82830-QTWS SKIN LESIONS, OVER 4 11/15/19 25 94040-KDAN SKIN LESIONS, OVER 4 08/22/19 25 45122-EQVH SKIN LESIONS, OVER 4 06/07/20 24 10403-TQZB SKIN LESIONS, OVER 4 10/19/19 24 33372-UQGD SKIN LESIONS, OVER 4 03/21/20 24 90210-DZRS SKIN LESIONS, OVER 4 08/06/19 24 86463-MZIA SKIN LESIONS, OVER 4 05/25/20 23 15350-YWSQ SKIN LESIONS, OVER 4 03/16/20 23 24259-PRYS SKIN LESIONS, 2 TO 4 01/06/20 23 33724-FGBW SKIN LESIONS, 2 TO 4 10/17/19 23 52837-QRGO SKIN LESIONS, 2 TO 4 08/07/19 23 21943-QCUX SKIN LESIONS, 2 TO 4 04/14/20 22 70562-EYYE SKIN LESIONS, 2 TO 4 01/31/20 22 72730-CEKA SKIN LESIONS, 2 TO 4 11/26/19 22 99562-DJGR SKIN LESIONS, 2 TO 4 09/16/19 22 87387-QNUF SKIN LESIONS, 2 TO 4 07/04/20 21 Next Appt Details Provider Name:Reese Garcia , 05/08/2025 01:30:00 PM, [address] [facility], [place], [address], Insurance Providers Payer Name Payer Address Payer Phone Subscriber Number Group Number Insured Name Patient Relationship to Insured Coverage Start Date Coverage End Date Medicare National Govt Svcs Inc [address] [place] [address] [id number] Genie Escalera Self - patient is the insured 3 [place] [address] [place] [phone] [id number] Genie Escalera Self - patient is the [...] carpal tunnel [facility] [place] [facility] [place] hand surgery- trigger finger right 2020 sx underarm 12/15/21 Hospitalization History Reason Date(Month/Year) [facility] [place] [facility] [place]-Coronavirus symptoms- not tested- said asthma and allergies 10/24/2019 [facility] [place] [facility] [place] for coughing- lesion found in samuel ngs 09/13/2017 pneumonia 11/24-11/26/15
--- OUTSIDE RECORDS SUMMARY | 2025-02-28 09:00 | XMS_ITS | Patient Health Record ---
Author Organization [facility] Address [address] [place] [address] Care Team Providers Care Pecan Gatherer Name Role Phone Corrine Spangler MD Primary Care Provider Nishant Amaro [phone] Allergies Allergen (clinical drug ingredient) Drug/Non Drug Allergy documented on EMR Reaction Allergy Type Onset Date Status dapagliflozin Farxiga Unknown Drug Allergy Act chey [...] statins-no real allergy (uncoded) diarrhea Allergy Active Reason For Referral No Information Medications [...] Problem Status W/U Status Risk Notes Problem 39424110 Pancreatic cyst (K86.2) Active confirmed Problem 14672193 Constipation, unspecified constipation type (K59.00) Active confirmed Problem 906254692 Abdominal pain, left lower quadrant (R10.32) Active confirmed Problem 64391827 Irritable bowel syndrome, unspecified type (K58.9) Active confirmed Problem 98075725 Hypertension, unspecified type (I10) Active confirmed Plan Of Treatment No Information Insurance Providers Payer Name Payer Address Payer Phone Subscriber Number Group Number Insured Name Patient Relationship to Insured Coverage Start Date Coverage End Date MEDICARE OF [place] [address] [place] [address] [id number] HOOD CASTILLO Self - patient is the [facility] [address] [place] [address] [id number] HOOD CASTILLO Self - patient is the insured Medical (General) History Medical History History ICD Code Chronic diarrhea/IBS-colonos copy biopsies negative for colitis in 1994 and labs neg. for celiac disease in 2009 Colon polyps-tubular adenoma s removed in 1999 and 2009-colonoscopy was negative in 2004 except for AVM's NIDDM Hyperlipidemia Hypertension Breast ymliun-5578-baqpn lumpectomy with XRT UTI's Denies NM,CVA,renal disease Bronchitis Pancreatic cysts seen on MRI in 09/[address] scan in November of 2022 Asthma Surgical History Surgery Date(Month/Year) Cholecystectomy JOANA Rectovaginal fistula repair in 1994 Bladder suspension Veins in LE's Breast cancer as above
[2025-02-28 09:44] VITALS: BP 156/60; PULSE 70; TEMP 36.7; O2SAT 96; BMI 27.6
--- NOTE | 2025-02-28 09:44 | MHC.OFFWIV ---
Intake Vital Signs 02/28/25 09:44 Height 5 ft 1 in Weight 146 lb BMI 27.6 BP 156/60 H Blood Pressure Location Rt brachial Position Sitting Pulse 70 Pulse Source Pulse Oximeter Temp 98.0 F Temp Source Oral Pulse Oximetry (%) 96 Oxygen Delivery Method Room Air Intake Visit Reasons: EP-lt lower back pain Patient Tobacco Use Status: Never used Tobacco Information Technology Assistant Required: No Allergies alendronate sodium (From FOSAMAX) Allergy (Intermediate, Verified 02/28/25 09:49) DIARRHEA ciprofloxacin (CIPROFLOXACIN) Allergy (Intermediate, Verified 02/28/25 09:49) HEADACHE,SOB hydrochlorothiazide (HYDROCHLOROTHIAZIDE) Allergy (Intermediate, Verified 02/28/25 09:49) HEADACHE,DIZZINESS, Gi upset levofloxacin (From LEVAQUIN) Allergy (Intermediate, Verified 02/28/25 09:49) HEADACHE,SOB metformin (METFORMIN) Allergy (Intermediate, Verified 02/28/25 09:49) DIARRHEA, Gi upset pravastatin (PRAVASTATIN) Allergy (Intermediate, Verified 02/28/25 09:49) HEADACHE,SOB, Gi upset simvastatin (SIMVASTATIN) Allergy (Intermediate, Verified 02/28/25 09:49) HEADACHE,SOB, Gi upset canagliflozin (From INVOKANA) Adverse Reaction (Intermediate, Verified 02/28/25 09:49) DIARRHEA dapagliflozin (From FARXIGA) Adverse Reaction (Intermediate, Verified 02/28/25 09:49) DIARRHEA dulaglutide (From Trulicity) Adverse Reaction (Intermediate, Verified 02/28/25 09:49) skin bumps mannitol (From Reclast) Adverse Reaction (Verified 02/28/25 09:49) bone pain water for injection,sterile (From Reclast) Adverse Reaction (Verified 02/28/25 09:49) bone pain zoledronic acid (From Reclast) Adverse Reaction (Verified 02/28/25 09:49) bone pain From PERCOCET Adverse Reaction (Mild, Uncoded 01/10/25 11:14) NAUSEA Do you need a note to return to daycare/school/sports/work: No HPI HPI Comments History of Present Illness Details History - The patient is an 84-year-old female presenting with multiple complaints including musculoskeletal pain, urinary tract infection, and gastrointestinal issues. - She recently had a UTI and was treated with antibiotics, with the last dose taken yesterday. - She has a history of renal cyst, previously identified and she is seen by her urologist. - Pain in the side and left lower back, worsened by movement. - Constipation: Large bowel movements, improved with medication. - She denies trauma or fall. - She denies dysuria, hematuria, CP, SOB, fever, chills, rashes, saddle anesthesia, numbness, tingling, or incontinence. Physical Exam General: cooperative, healthy appearing and comfortable, patient oriented x3 Head: Normal to inspection, normocephalic/atraumatic Effort & Inspection: Normal respiratory effort and able to speak in complete sentences. Cardiac: RRR, no M/R/G noted. Normal S1 and S2. Respiratory: Clear to auscultation bilaterally. No w/r/r noted. Back/spine: No CVA tenderness bilaterally. Cervical, thoracic and lumbar spine normal to inspection. Cervical ROM normal, no midline spinous tenderness noted. Thoracic ROM normal, lumbar ROM normal. No midline vertebral spinous tenderness noted. No step offs noted. No TTP of the thoracic paraspinous or paravertebral muscles. TTP of the left lumbar paraspinous muscles. DTR are 2+ on the lower extremities noted. Ambulates with a steady gait. Extremities: Straight leg raise test negative on right; Straight leg raise test negative on left; motor strength normal 5/5 bilaterally. Neuro: Sensation intact. Patient was informed and verbally consented to the use of an ambient scribe for clinic note documentation during this visit. [facility] Medical History Annual physical exam Asthma Diabetes mellitus HTN (hypertension) Diastolic dysfunction Family history of total abdominal hysterectomy and bilateral salpingo-oophorectomy (JOANA-BSO) Surgical History Hx of bilateral cataract extraction History of bladder suspension procedure History of lumpectomy of right breast History of trigger finger History of urethrocutaneous fistula Hx of hysterectomy Hx of section Hx of appendectomy Family History Father CAD (coronary artery disease) Mother Parkinson disease Mental health disorder Brother Diabetes Melanoma Social History Housing: House Alcohol intake: never Patient Tobacco Use Status: Never used Tobacco e-Cigarette/Vaping Use: Never Used Second Hand Smoke Exposure: No service: No Current occupational status: retired 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 Cognitive needs: No Hearing needs: No Vision needs: Yes Review of Systems Const All systems reviewed & are unremarkable except as noted in HPI and below Physical Exam Vital Signs: Last Vital Signs Temp 98.0 F 02/28/25 09:44 Pulse 70 02/28/25 09:44 BP 156/60 H 02/28/25 09:44 Pulse Ox 96 02/28/25 09:44 Oxygen Delivery Method Room Air 02/28/25 09:44 BMI result Body Mass Index 27.6 Assessment & Plan Assessment & Plan (1) Back pain: Code(s): M54.9 - Dorsalgia, unspecified Qualifiers: Back pain laterality: left Back pain location: low back pain Chronicity: acute Sciatica presence: without sciatica Qualified Code(s): M54.50 - Low back pain, unspecified Plan Most likely strain vs radiculopathy vs scoliosis pain vs arthritis Rechecked her BP in the office and it had improved Plan- 1. Urinary Tract Infection - Completed a course of antibiotics; urine culture was done in the urologist office on 02/23 2. Renal Cyst - Monitor for symptoms; no immediate intervention discussed. 3. Musculoskeletal Pain - Prescribed medication for pain management - consider physical therapy for muscle stretching and strengthening. - Recommended repeat x-ray to assess scoliosis progression. 4. Constipation - Continue current medication to manage bowel movements. Orders: Orders XR lumbar spine 2-3V Today M54.50 - Low back pain, unspecified PT Evaluation and Treatment Today M54.50 - Low back pain, unspecified Coding Level of Care Code Est Pt Level 4 (92600) Diagnoses Acute left-sided low back pain without sciatica M54.50 Back pain laterality: left Back pain location: low back pain Chronicity: acute Sciatica presence: without sciatica
== END 2025-02-28 10:34 | disposition home or self-care (01) ==
PROVIDERS: PCP Internal Medicine; Visit Provider Physician Assistant Medical
DX: M54.50 Low back pain, unspecified (principal)

== ENCOUNTER → 2025-02-28 10:28 | Outpatient (BNV) | payer MEDICARE, OTHER, SELFPAY | PROVIDERS: PCP Internal Medicine; Visit Provider Radiology Diagnostic Radiology | DX: M43.16 Spondylolisthesis, lumbar region (principal) | CPT/HCPCS: 72100 ==

== ENCOUNTER 2025-03-10 11:16 | Emergency (ER) | payer MEDICARE, OTHER, SELFPAY ==
[2025-03-10 11:19] VITALS: PULSE 90; RESP 18; TEMP 37.1; O2SAT 97; BMI 26.8
--- NOTE | 2025-03-10 11:20 | ED.GENADULT ---
HPI - General Adult General Chief complaint: General Medical Stated complaint: Left side abd pain, vaginal spotting Time Seen by Provider: 03/10/25 15:43 Source: patient and family Limitations: no limitations History of Present Illness HPI narrative: 84-year-old female who has a history of hypertension, diabetes, recent UTI, currently being treated with cefpodoxime presents for evaluation after noting some pink spotting in her brief. Patient states that she is actually starting to feel better. She denies any dysuria or hematuria but stating that she was having associated low back pain with a recent UTI. She has 2 doses left on her medication. She has not had any spotting previously and therefore here for further evaluation. She denies any abdominal pain. No fevers chills nausea or vomiting. She has had some episodes of constipation recently. She is not anticoagulated. She has not had any vaginal spotting previously and does not feel that this is related. She is status post bilateral salpingo-oophorectomy total hysterectomy. Related Data Home Medications ?Medication ?Instructions ?Recorded ?Confirmed ascorbic acid (vitamin C) 500 mg mg PO 05/28/20 11/22/24 capsule mecobalamin (vitamin B12) 1,000 1,000 mcg sublingual DAILY 05/28/20 11/22/24 mcg disintegrating tablet,sublingual methenamine hippurate 1 gram tablet 1 g PO BID 05/28/20 11/22/24 omega-3 fatty acids-fish oil 360 1 cap PO DAILY 05/28/20 11/22/24 mg-1,200 mg capsule (Fish Oil) albuterol sulfate 90 mcg/actuation inhalation 01/08/21 11/22/24 aerosol inhaler polaprezinc (zinc carnosine) PO 08/28/21 11/22/24 diphenhydramine HCl 25 mg capsule 25 mg PO BEDTIME PRN 03/21/24 11/22/24 (NightTime Sleep Aid (diphenhydramine)) acetaminophen 325 mg capsule 325 mg PO QID PRN 04/25/24 11/22/24 (Tylenol) albuterol sulfate 0.63 mg/3 mL mg inhalation BID 04/25/24 11/22/24 solution for nebulization cholecalciferol (vitamin D3) 25 25 mcg PO DAILY 04/25/24 11/22/24 mcg (1,000 unit) capsule glycerin-mineral oil-polycarbophil ea vaginal 04/25/24 11/22/24 vaginal gel (Replens vaginal gel) lactobacillus combination no.9 PO DAILY 04/25/24 11/22/24 [Adult 50 Plus Probiotic] magnesium 250 mg tablet 250 mg PO DAILY 04/25/24 11/22/24 cranberry extract 650 mg capsule 650 mg PO DAILY 01/10/25 (Theracran) Previous Rx's ?Medication ?Instructions ?Recorded blood sugar diagnostic #100 ea 09/28/23 lidocaine 5 % topical patch 1 patch topical DAILY #15 ea 05/12/24 (Lidoderm) estradiol 0.01% (0.1 mg/gram) See Rx Instructions .Route DAILY 08/23/24 vaginal cream #42.5 grams blood sugar diagnostic (OneTouch #100 strips 10/10/24 Ultra Test strips) omeprazole 20 mg capsule,delayed 20 mg PO DAILY #90 caps 10/26/24 release dulaglutide 1.5 mg/0.5 mL 1.5 mg (0.5 mL) subcut QWEEK #6 mL 11/12/24 subcutaneous pen injector (Trulicity) fluticasone propionate 220 1 inh inhalation BID #12 grams 11/22/24 mcg/actuation HFA aerosol inhaler Trulicity 3 mg/0.5 mL subcutaneous 3 mg (0.5 mL) subcut QWEEK #6 mL 12/22/24 pen injector (dulaglutide) glipizide 10 mg tablet, extended 10 mg PO BID #180 tabs 01/09/25 release 24 hr diltiazem HCl 240 mg 240 mg PO DAILY #90 caps 01/24/25 capsule,extended release 24 hr cyclobenzaprine 5 mg tablet 5 mg PO tid PRN Muscle Spasm 7 03/01/25 days #21 tabs naproxen 500 mg tablet 500 mg PO Q12H PRN pain 7 days #20 03/01/25 tabs Allergies Allergy/AdvReac Type Severity Reaction Status Date / Time alendronate sodium (From Allergy Intermediate DIARRHEA Verified 03/10/25 11:20 FOSAMAX) ciprofloxacin (CIPROFLOXACIN) Allergy Intermediate HEADACHE,SO Verified 03/10/25 11:20 B hydrochlorothiazide Allergy Intermediate HEADACHE,DIZZINESS, Verified 03/10/25 11:20 (HYDROCHLOROTHIAZIDE) Gi upset levofloxacin (From LEVAQUIN) Allergy Intermediate HEADACHE,SO Verified 03/10/25 11:20 B metformin (METFORMIN) Allergy Intermediate DIARRHEA, Verified 03/10/25 11:20 Gi upset pravastatin (PRAVASTATIN) Allergy Intermediate HEADACHE,SOB, Verified 03/10/25 11:20 Gi upset simvastatin (SIMVASTATIN) Allergy Intermediate HEADACHE,SOB, Verified 03/10/25 11:20 Gi upset canagliflozin (From INVOKANA) AdvReac Intermediate DIARRHEA Verified 03/10/25 11:20 dapagliflozin (From FARXIGA) AdvReac Intermediate DIARRHEA Verified 03/10/25 11:20 dulaglutide (From Trulicity) AdvReac Intermediate skin bumps Verified 03/10/25 11:20 mannitol (From Reclast) AdvReac bone pain Verified 03/10/25 11:20 water for injection,sterile AdvReac bone pain Verified 03/10/25 11:20 (From Reclast) zoledronic acid (From AdvReac bone pain Verified 03/10/25 11:20 Reclast) From PERCOCET AdvReac Mild NAUSEA Uncoded 03/10/25 11:20 Review of Systems Constitutional: Constitutional: Denies chills and Denies fever(s) Eyes: Eyes: Denies change in vision and Denies other (No redness.) Cardiovascular: Cardiovascular: Denies chest pain, Denies palpitations, Denies dyspnea, Denies dyspnea on exertion and Denies orthopnea Respiratory: Respiratory: Denies cough, Denies dyspnea and Denies dyspnea on exertion Gastrointestinal: Gastrointestinal: Denies abdominal pain, Denies melena, Denies hematochezia, Denies diarrhea, Denies nausea and Denies vomiting Genitourinary: Genitourinary: Denies difficulty voiding, Denies dysuria and Denies urinary urgency Musculoskeletal: Musculoskeletal: Denies back pain, Denies muscle weakness and Denies numbness Integumentary/Breasts: Skin/Breast: Denies rash Neurologic: Denies focal weakness and Denies numbness Psychiatric: Psychiatric: Denies depression Endocrine: Endocrine: Denies palpitations PMFSH Past Medical History Medical History Annual physical exam Asthma Diabetes mellitus HTN (hypertension) Diastolic dysfunction Family history of total abdominal hysterectomy and bilateral salpingo-oophorectomy (JOANA-BSO) Surgical History Hx of bilateral cataract extraction History of bladder suspension procedure History of lumpectomy of right breast History of trigger finger History of urethrocutaneous fistula Hx of hysterectomy Hx of section Hx of appendectomy Family History Family History Father CAD (coronary artery disease) Mother Parkinson disease Mental health disorder Brother Diabetes Melanoma Social History Social History Housing: House Alcohol intake: never Patient Tobacco Use Status: Never used Tobacco e-Cigarette/Vaping Use: Never Used Second Hand Smoke Exposure: No Advance Directives: No Advance Directives Information Provided: No service: No Current occupational status: retired 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 There are no peritoneal signs. No CVAT. No suprapubic tenderness Course Course Course Narrative: This is an RME: Additional HPI, ROS, PE not included below will be deferred to primary provider. RME assessment and note performed by: Aislinn Clancy PA-C This is a 71-grpo-saa-female, with a hx of DM, HTN, diastolic dysfunction, osteoporosis, asthma, who presents to the ER with complaints of left sided flank pain. Reports that when she awoke this morning she noticed several drops of blood on her pad. Reports that she has no chest pain no shortness of breath. Reports she has had increased constipation, last BM was yesterday, has been taking stool softeners. Reports recently she was diagnosed with a UTI, treated with cefpodoxime 200mg, has 1-2 pills left. Plan: Labs, UA, further ER eval needed Reevaluation(s) Reevaluation #1: 5:00 p.m. urinalysis returned, appears to be resolving UTI. Patient will be discharged home to continue her current antibiotics. She will follow up with her urologist at her current appointment this week. I once again had an extensive discussion with the patient that she may benefit from additional imaging to further characterize any intra-abdominal process. Patient states that she is feeling well at this time, has no abdominal pain and no other associated symptoms. She would like to be discharged home and continue to monitor symptoms. I feel this is reasonable at this time. Patient has follow up established and support at home. She expresses understanding of all discharge instructions and has no further questions at this time. Medical Decision Making Medical Decision Making [facility] Narrative: 84-year-old female who presents from home with pink spotting in her brief, recent treatment for UTI with a cefpodoxime , is hemodynamically stable and afebrile. CBC and chemistries are within normal ranges. UA is pending at this time. I have also had extensive discussion with the patient regarding additional imaging such as with CT to further evaluate the previous abdominal pain that she had as well as to assess for any urinary tract etiology such as kidney stone. Patient is adamantly refusing this at this time since she has been in the emergency department for several hours and states that she would like to be discharged home. In addition she is hungry and would like to have food. Patient also reports that she has a follow up appointment with her urologist, Dr. Merary martinez on Wednesday coming up. She would like to defer at this time for any additional imaging. Differential Diagnosis Differential Diagnoses: The differential diagnosis associated with the presentation includes Pyelonephritis Nephrolithiasis UTI Hematuria Admission/Observation Consideration of admission/observation: Escalation of care including admission/observation considered Lab Data [facility] Lab Attestation statement: I reviewed the patient's lab results. 03/10/25 11:39 03/10/25 11:39 Labs: Lab Results 03/10/25 03/10/25 Range/Units 11:39 15:38 WBC 7.7 (4.8-10.8) X10*3/uL RBC 4.16 L (4.20-5.50) X10*6/uL Hgb 12.4 (12.0-16.0) g/dl Hct 37.3 (37.0-47.0) % MCV 89.7 (80.0-98.0) fL MCH 29.8 (27.0-33.0) pg MCHC 33.2 (31.0-35.0) g/dl RDW 13.4 (11.0-16.0) % Plt Count 184 (160-400) X10*3/uL MPV 9.7 (9.4-12.3) fL Immature Gran % (Auto) 0.3 (0.0-0.4) % Neut % (Auto) 68.2 (45-73) % Lymph % (Auto) 19.4 L (20-40) % [place] % (Auto) 8.3 (2-11) % Eos % (Auto) 3.2 (0-4) % Baso % (Auto) 0.6 (0-2) % Lymph # (Auto) 1.5 (1.2-4.9) X10*3/uL [place] # (Auto) 0.6 (0.1-1.2) X10*3/uL Eos # (Auto) 0.3 (0.0-0.4) X10*3/uL Baso # (Auto) 0.1 (0.0-0.2) X10*3/uL Abs Immat Gran (auto) 0.02 (0.00-0.03) X10*3/uL Absolute Neuts (auto) 5.3 (2.0-8.3) x10*3/uL Absolute Nucleated RBC 0.000 (0.0-0.012) X10*3/uL Nucleated RBC % (auto) 0.0 (0.0-0.2) /100WBC Sodium 142 (135-145) mmol/L Potassium 4.0 (3.3-5.1) mmol/L Chloride 107 (96-108) mmol/L Carbon Dioxide 26 (22-29) mmol/L Anion Gap 13 (12-20) BUN 21 H (9-16) mg/dL Creatinine 0.70 (0.5-1.4) mg/dL Estim Creat Clear Calc 51.5 Estimated GFR > 60 Random Glucose 203 H (60-115) mg/dL Calcium 9.3 (8.4-10.2) mg/dL Magnesium 1.8 (1.6-2.6) mg/dL Total Bilirubin 0.3 (0.0-1.0) mg/dL Direct Bilirubin 0.1 (0.0-0.5) mg/dL AST 20 (5-31) U/L ALT 17 (0-31) U/L Alkaline Phosphatase 117 (39-117) U/L Total Protein 6.8 (6.5-8.0) g/dL Albumin 4.0 (3.5-5.0) g/dL Urine Color Yellow Urine Appearance Clear Urine pH 5.5 (5.0-9.0) Ur Specific [place] 1.010 (1.005-1.025) Urine Protein Negative (Neg-Trace) mg/dL Urine Glucose (UA) Negative (Negative) mg/dL Urine Ketones Negative (Negative) mg/dL Urine Blood Trace H (Negative) Urine Nitrite Negative (Negative) Ur Leukocyte Esterase Moderate (2+) H (Negative) Urine RBC 0-2 (0-2) /HPF Urine WBC >50 H (0-5) /HPF Ur Squamous Epith Cells 3-5 (0-2) /HPF Urine Bacteria None Seen (None Seen) Hyaline Casts 0-2 (0-2) /LPF Independent Historian Clinical information obtained from an independent historian. History obtained from or confirmed by: Other Prescription Management I considered prescription management with: Antibiotic Chronic Conditions Patient?s care impacted by: Diabetes and Hypertension Discharge Plan Discharge Clinical Impression: Hematuria Qualifiers: Hematuria type: unspecified type Qualified Code(s): R31.9 - Hematuria, unspecified Patient Disposition: Home, Self-Care Instructions: Hematuria (ED) Additional Instructions: Continue current antibiotics, finish all medication. Follow up with your urology appointment with Dr. Ferrell this week. We have discussed conducting a CT of your abdomen today however you have declined at this time. You may discuss this as an option with your urologist or primary care provider. Watch for any worsening of symptoms, severe pain, fevers, return of abdominal pain or any other concern return immediately to the emergency department. Follow-up with your primary care provider. Call this week to schedule a follow-up appointment. Return to the emergency department if you have any worsening of symptoms, or any concerns. Get well soon! Prescriptions: No Action (DME) OneTouch Ultra Test Strip See Rx Instructions .ROUTE .COMPLEX Qty: 100 3RF Dose Instruction: USE DIRECTED TO TEST SUGARS DAILY Rx Instructions: USE DIRECTED TO TEST SUGARS DAILY omeprazole 20 mg capsule,delayed release(DR/EC) 20 mg PO DAILY Qty: 90 3RF Trulicity 1.5 mg/0.5 mL pen injector 1.5 mg subcut QWEEK Qty: 6 3RF Trulicity 3 mg/0.5 mL pen injector 3 mg subcut QWEEK Qty: 6 1RF glipizide 10 mg tablet extended release 24hr 10 mg PO BID Qty: 180 3RF diltiazem HCl 240 mg capsule,extended release 24hr 240 mg PO DAILY Qty: 90 3RF lidocaine [Lidoderm] 5 % adhesive patch,medicated 1 patch topical DAILY Qty: 15 0RF Rx Instructions: leave on most painful area for up to 12 hrs polaprezinc (zinc carnosine) PO (DME) blood sugar diagnostic Strip See Rx Instructions .ROUTE .MEDSUPPLY Qty: 100 3RF Rx Instructions: One touch test strips use 1 strip to test blood sugar once daily diphenhydramine HCl [NightTime Sleep Aid (diphen)] 25 mg capsule 25 mg PO BEDTIME PRN lactobacillus combination no.9 [Adult 50 Plus Probiotic] PO DAILY albuterol sulfate 90 mcg/actuation HFA aerosol inhaler inhalation methenamine hippurate 1 gram tablet 1 g PO BID mecobalamin (vitamin B12) 1,000 mcg tablet,disintegrating 1,000 mcg sublingual DAILY Rx Instructions: place tablet under tongue and allow to dissolve for at least30 secs before swallowing omega-3 fatty acids-fish oil [Fish Oil] 360-1,200 mg capsule 1 cap PO DAILY ascorbic acid (vitamin C) 500 mg capsule PO albuterol sulfate 0.63 mg/3 mL solution for nebulization inhalation BID fluticasone propionate 220 mcg/actuation HFA aerosol inhaler 1 inh inhalation BID Qty: 12 3RF naproxen 500 mg tablet 500 mg PO Q12H PRN (Reason: pain) 7 Days Qty: 20 0RF cyclobenzaprine 5 mg tablet 5 mg PO tid PRN (Reason: Muscle Spasm) 7 Days Qty: 21 0RF cholecalciferol (vitamin D3) 25 mcg (1,000 unit) capsule 25 mcg PO DAILY magnesium 250 mg tablet 250 mg PO DAILY acetaminophen [Tylenol] 325 mg capsule 325 mg PO QID PRN Replens Gel vaginal estradiol 0.01 % (0.1 mg/gram) cream See Rx Instructions .ROUTE DAILY Qty: 42.5 3RF Rx Instructions: pea size to urethra daily; Theracran 650 mg capsule 650 mg PO DAILY Rx Instructions: administer with a meal Print Language: Ch[place]
[2025-03-10 11:26] VITALS: BP 186/86
[2025-03-10 11:44] LABS: Hematocrit 37.3 % (37.0-47.0); Hemoglobin 12.4 g/dl (12.0-16.0); Imm Gran Abs Auto 0.02 X10*3/uL (0.00-0.03); Imm Gran Pct Auto 0.3 % (0.0-0.4); Lymphocytes Absolute Auto 1.5 X10*3/uL (1.2-4.9); MANUAL DIFF FLAG NO; Mean Corpuscular HGB Conc 33.2 g/dl (31.0-35.0); Mean Corpuscular Hemoglobin 29.8 pg (27.0-33.0); Mean Corpuscular Volume 89.7 fL (80.0-98.0); NRBC Abs Auto 0.000 X10*3/uL (0.0-0.012); NRBC Pct Auto 0.0 /100WBC (0.0-0.2); Platelet Count 184 X10*3/uL (160-400); Red Blood Count 4.16 X10*6/uL (4.20-5.50); White Blood Count 7.7 X10*3/uL (4.8-10.8)
[2025-03-10 12:20] LABS: Alanine Aminotransferase 17 U/L (0-31); Albumin Level 4.0 g/dL (3.5-5.0); Alkaline Phosphatase 117 U/L (39-117); Anion Gap 13 (12-20); Aspartate Amino Transferase 20 U/L (5-31); Blood Urea Nitrogen 21 mg/dL (9-16); Calcium 9.3 mg/dL (8.4-10.2); Carbon Dioxide 26 mmol/L (22-29); Chloride 107 mmol/L (96-108); Creatinine Clr Calc Pharmacy 51.5; Estimated Glomerular Filt Rate > 60; Magnesium 1.8 mg/dL (1.6-2.6); Potassium 4.0 mmol/L (3.3-5.1); Sodium 142 mmol/L (135-145); Total Protein 6.8 g/dL (6.5-8.0)
--- OUTSIDE RECORDS SUMMARY | 2025-03-10 15:48 | XMS_ITS | Patient Health Record ---
Author Organization [facility] Address [address] [place] [address] Care Team Providers Care Financial Sales Representative Name Role Phone Corrine Spangler MD Primary Care Provider Reese Mancilla Unavailable [phone] Maritza Hazel Unavailable [phone] Allergies Allergen (clinical drug ingredient) Drug/Non Drug [...] 1 tab Oral; Duration: 14 days Not-Taking Capron 3 Active Losartan Potassium 100 MG Orally [...] Problem Acquired hammer toe of right foot (0655408476067 105) Other hammer toe(s) (acquired), right foot (M20.41) Active confirmed Response to treatment,I mprovement Problem Type 2 diabetes mellitus with peripheral angiopathy (060511227) Type 2 diabetes mellitus with diabetic peripheral angiopathy without gangrene (E11.51) Active confirmed Problem Acquired hammer toe of left foot ([id number] 103) Other hammer toe(s) (acquired), left foot (M20.42) Active confirmed Response to treatment,I mprovement Vital Signs Blood pressure diastolic 60 mm Hg 11/14/2024 Height 5 ft 1 in in 11/14/2024 Blood pressure systolic 120 mm Hg 11/14/2024 Weight 144 lbs 11/14/2024 BMI 27.21 kg/m2 11/14/2024 Procedures Procedure Date Ordered Date Performed Result Body Sit e 99695-FPKRKTL NAIL, 6 OR MORE 03/21/2024 N/A 88713-AJGI SKIN LESIONS, OVER 4 03/21/2024 N/A 18526-CAIZCDR NAIL, 6 OR MORE 06/07/2024 N/A 32284-FRXN SKIN LESIONS, OVER 4 06/07/2024 N/A 99203-IEGHBHI NAIL, 6 OR MORE 08/22/2024 N/A 74658-ADWC SKIN LESIONS, OVER 4 08/22/2024 N/A 40445-FDGUEGX NAIL, 6 OR MORE 11/14/2024 N/A 32263-GWGK SKIN LESIONS, OVER 4 11/14/2024 N/A Encounters Encounter Location Date Provider Diagnosis [address] [address] 03/21/2024 Reese Garcia Type 2 diabetes mellitus with diabetic peripheral angiopathy without gangrene E11.51 ; Tinea unguium B35.1 ; Pain in right toe(s) M79.674 and Pain in left toe(s) M79.[address] [address] 06/07/2024 Maritza Hazel Type 2 diabetes mellitus with diabetic peripheral angiopathy without gangrene E11.51 ; Tinea unguium B35.1 ; Pain in right toe(s) M79.674 and Pain in left toe(s) M79.[address] [address] 08/22/2024 Reese Garcia Type 2 diabetes mellitus with diabetic peripheral angiopathy without gangrene E11.51 ; Tinea unguium B35.1 ; Pain in right toe(s) M79.674 ; Pain in left toe(s) M79.675 ; Other hammer toe(s) (acquired), right foot M20.41 and Other hammer toe(s) (acquired), left foot M20.42 [facility] [address] 11/14/2024 Reese Garcia Type 2 diabetes mellitus with diabetic peripheral angiopathy without gangrene E11.51 ; Tinea unguium B35.1 ; Pain in right toe(s) M79.674 and Pain in left toe(s) M79.[address] [facility] [address] 04/10/2024 Reese Garcia [address] [address] 02/15/2025 Reese Garcia Assessments Encounter Date Diagnosis [...] Test Name Order Date Hemoglobin A1c 09/03/2015 50758-TMVXYUQ NAIL, 6 OR MORE 12/06/2015 39656-RMHARZF NAIL, 6 OR MORE 09/03/2015 55184-LMJKJYU NAIL, 6 OR MORE 03/10/2016 69059-POFZFLS NAIL, 6 OR MORE 06/09/2016 49511-KMTFROH NAIL, 6 OR MORE 09/01/2016 71056-YTETMEI NAIL, 6 OR MORE 11/24/2016 95523-EBIBRPK NAIL, 6 OR MORE 04/18/2021 18090-OQCBCYB NAIL, 6 OR MORE 07/04/2021 73428-EXXOKOG NAIL, 6 OR MORE 09/16/2021 51873-KKPSLQG NAIL, 6 OR MORE 02/16/2017 96425-ZZBGCKY NAIL, 6 OR MORE 04/27/2017 58714-BJCUJFP NAIL, 6 OR MORE 07/20/2017 58460-RRYTGXB NAIL, 6 OR MORE 09/28/2017 09108-EDXRLGN NAIL, 6 OR MORE 11/30/2017 89862-BVSIBMG NAIL, 6 OR MORE 02/15/2018 76943-HIOOSQW NAIL, 6 OR MORE 05/10/2018 94159-IMCELGS NAIL, 6 OR MORE 08/19/2018 28460-UQHQITQ NAIL, 6 OR MORE 11/04/2018 26575-CDPXKGW NAIL, 6 OR MORE 01/24/2019 53155-KFIOPPH NAIL, 6 OR MORE 06/13/2019 57874-MJLVUYK NAIL, 6 OR MORE 08/22/2019 61682-UDZQTOM NAIL, 6 OR MORE 10/31/2019 27692-ESVDBWE NAIL, 6 OR MORE 01/09/2020 48523-ZVOJPUT NAIL, 6 OR MORE 03/19/2020 77872-SWSOGXR NAIL, 6 OR MORE 06/21/2020 57478-KLLBRNQ NAIL, 6 OR MORE 08/30/2020 91724-TZZHVEI NAIL, 6 OR MORE 11/05/2020 97281-QNHUPJV NAIL, 6 OR MORE 01/10/2021 84836-GVIZKMM NAIL, 6 OR MORE 11/25/2021 68860-ZMGHEWT NAIL, 6 OR MORE 01/30/2022 44846-NCGPAMU NAIL, 6 OR MORE 04/14/2022 55570-VTFAFGF NAIL, 6 OR MORE 08/07/2022 99115-ACFTKSD NAIL, 6 OR MORE 10/16/2022 59196-NURTTLV NAIL, 6 OR MORE 01/05/2023 30599-TMOZLBN NAIL, 6 OR MORE 03/16/2023 59605-RKJZMPY NAIL, 6 OR MORE 05/25/2023 49204-DARQTMM NAIL, 6 OR MORE 08/06/2023 43674-YRLOXZW NAIL, 6 OR MORE 10/19/2023 40059-EBPMXKA NAIL, 6 OR MORE 03/21/2024 12318-XCIRAJL NAIL, 6 OR MORE 06/07/2024 78588-AEXGJMZ NAIL, 6 OR MORE 08/22/2024 71184-WWRLOCP NAIL, 6 OR MORE 11/14/2024 90253-Evudvslp Plate 01/10/2021 24580-Wpwafuhq Plate 11/24/2016 15601-Wioeskex Plate 09/01/2016 48154-Vjejxlrc Plate 06/09/2016 42787-Liepykmi Plate 03/10/2016 86207-Oxzqtlvy Plate 09/03/2015 86155-Nurcynwr Plate 12/06/2015 70687-JPZH SKIN LESIONS, OVER 4 11/15/19 25 88765-ERHQ SKIN LESIONS, OVER 4 08/22/19 25 41330-MAYG SKIN LESIONS, OVER 4 06/07/20 24 70837-TBWN SKIN LESIONS, OVER 4 10/19/19 24 14851-HQDG SKIN LESIONS, OVER 4 03/21/20 24 66766-EYDU SKIN LESIONS, OVER 4 08/06/19 24 56256-GOEX SKIN LESIONS, OVER 4 05/25/20 23 04759-LMSM SKIN LESIONS, OVER 4 03/16/20 23 86013-AAUB SKIN LESIONS, 2 TO 4 01/06/20 23 97113-OOKW SKIN LESIONS, 2 TO 4 10/17/19 23 35563-BRFU SKIN LESIONS, 2 TO 4 08/07/19 23 96519-VLKK SKIN LESIONS, 2 TO 4 04/14/20 22 23055-FAPQ SKIN LESIONS, 2 TO 4 01/31/20 22 44804-YYWX SKIN LESIONS, 2 TO 4 11/26/19 22 16979-GYCA SKIN LESIONS, 2 TO 4 09/16/19 22 76757-IWFZ SKIN LESIONS, 2 TO 4 07/04/20 21 Next Appt Details Provider Name:Reese Garcia , 05/08/2025 01:30:00 PM, [address] [facility], [place], [address], Insurance Providers Payer Name Payer Address Payer Phone Subscriber Number Group Number Insured Name Patient Relationship to Insured Coverage Start Date Coverage End Date Medicare National [employer] [address] [place] [address] [id number] Genie Escalera Self - patient is the insured [address] [place] [place] [address] [place] [phone] [id number] Genie Escalera Self - patient is the insured Medical (General) History Medical History History ICD Code Arthritis Asthma Back,Hip,and Knee pain Cancer Cataracts Diabetes mellitus type 2 Gall bladder problems High blood pressure Polio chronic sinusitis Measles Mumps Chicken pox Transfusions Reflux Surgical History Surgery Date(Month/Year) gall bladder 1967 breast surgery hysterectomy bladder suspension vein surgery (LT leg) right carpal tunnel [facility] 05/04/2018 hand surgery- trigger finger right 2020 sx underarm 12/15/21 Hospitalization History Reason Date(Month/Year) [facility] ER-Coronavirus symptoms- not tested- said asthma and allergies 10/24/2019 [facility]- ER for coughing- lesion found in samuel ngs 09/13/2017 pneumonia 11/24-11/26/15
--- OUTSIDE RECORDS SUMMARY | 2025-03-10 15:48 | XMS_ITS | Patient Health Record ---
Author Organization [facility] Address [address] [place] [address] Care Team Providers Care Doughnut Glazier Name Role Phone Corrine Spangler MD Primary Care Provider Nishant Amaro [phone] Allergies Allergen (clinical drug ingredient) Drug/Non Drug [...] Problem Status W/U Status Risk Notes Problem 05747597 Pancreatic cyst (K86.2) Active confirmed Problem 79489429 Constipation, unspecified constipation type (K59.00) Active confirmed Problem 292986440 Abdominal pain, left lower quadrant (R10.32) Active confirmed Problem 74940071 Irritable bowel syndrome, unspecified type (K58.9) Active confirmed Problem 74920826 Hypertension, unspecified type (I10) Active confirmed Plan Of Treatment No Information Insurance Providers Payer Name Payer Address Payer Phone Subscriber Number Group Number Insured Name Patient Relationship to Insured Coverage Start Date Coverage End Date MEDICARE OF [place] [address] [place] [address] [id number] HOOD CASTILLO Self - patient is the insured [facility] [address] [place] [address] [phone] [id number] HOOD CASTILLO Self - patient is the insured Medical (General) History Medical History History ICD Code Chronic diarrhea/IBS-colonos copy biopsies negative for colitis in 1994 and labs neg. for celiac disease in 2009 Colon polyps-tubular adenoma s removed in 1999 and 2009-colonoscopy was negative in 2004 except for AVM's NIDDM Hyperlipidemia Hypertension Breast [id number] lumpectomy with XRT UTI's Denies [place],CVA,renal disease Bronchitis Pancreatic cysts seen on MRI in 09/[address] scan in November of 2022 Asthma Surgical History Surgery Date(Month/Year) Cholecystectomy JOANA Rectovaginal fistula repair in 1994 Bladder suspension Veins in LE's Breast cancer as above
--- OUTSIDE RECORDS SUMMARY | 2025-03-10 15:48 | XMS_ITS | Clinical Summary ---
Author Organization [address] [facility] Address [address] [place] [address] Phone Care Team Providers Care Matte Cutter Name Role Phone Corrine Spangler MD Primary Care Provider [phone] Encounters Date Type Department Care Team Description 02/23/2025 Lab Requisition [facility] - Main Lab [address] [place] [address] Mamadou Schmid PA Urinary tract [...] cloacae complex(A) [place] 02/25/2025 10:20 AM EDT [facility] Comment: This is an [...] COREY MUNOZ Final Result [facility] [address] [place] [address], [place] [phone] from Last 3 Months Insurance MEDICARE [facility] Care Teams Matte Cutter Relationship Specialty Start Date End Date Corrine Spangler MD [address] [place] [address] PCP - General Internal Medicine 02/23/25
[2025-03-10 16:01] LABS: Appearance Urine Clear; Glucose Urine UA Negative (Negative); PH 5.5 (5.0-9.0); Specific Gravity - Urine 1.010 (1.005-1.025); UMIC TRIGGER UACC YES
[2025-03-10 16:47] LABS: UACC Culture Trigger YES
[2025-03-10 17:06] VITALS: BP 00/00; PULSE 0; RESP 0; TEMP -17.7; TEMP 0
== END 2025-03-10 17:07 | disposition home or self-care (01) ==
PROVIDERS: Physician Assistant Medical; Emergency Provider Emergency Medicine Emergency Medical Services; PCP Internal Medicine
DX: R31.9 Hematuria, unspecified (principal); E11.9 Type 2 diabetes mellitus without complications; I10 Essential (primary) hypertension; J45.909 Unspecified asthma, uncomplicated
CPT/HCPCS: 36415; 80048; 80076; 81001; 81003; 83735; 85025; 87086; 87088; 87186; 99283; 99284

== ENCOUNTER 2025-03-16 12:25 | Outpatient (REF) | payer MEDICARE, OTHER, SELFPAY ==
--- NOTE | ~2025-03-16 | MM_ITS ---
EXAMINATIONS: 1. MM DIAGNOSTIC DIGITAL BREAST TOMOSYNTHESIS, LEFT 2. Targeted ultrasound of the left breast CLINICAL INFORMATION: Callback from screening for left breast focal asymmetry at approximately 9 o'clock position. COMPARISON: February 21, 2025 and February 21, 2024 TECHNIQUE: Digital breast tomosynthesis is performed in full-field ML 90 degrees view along with computer-aided detection (CAD). Synthesized 2D images are generated from the tomosynthesis. Spot compression tomosynthesis images were also obtained. FINDINGS: BREAST COMPOSITION: There are scattered areas of fibroglandular density (ACR BI-RADS breast composition Category b). LEFT BREAST: Previously described focal asymmetry at about 9 o'clock position is identified measuring approximately 0.7 cm in size at 7.5 cm from the nipple (spot CC /, full-field ML 90 degrees /). Targeted ultrasound of the left breast was performed at the location of the mammographic finding. The survey shows a 0.6 x 0.4 x 0.4 cm cyst at 9 o'clock position 4 cm from the nipple. No internal vascularity demonstrated with color Doppler evaluation. MM/MM tomosynthesis added views L IMPRESSION: LEFT BREAST: 0.6 cm cyst at 9 o'clock position 4 cm from the nipple. Benign, no mammographic evidence of malignancy. Normal interval follow-up is recommended in 12 months. ASSESSMENT: BI-RADS 2 - Benign Findings RECOMMENDATION: 1 year F/U Results were provided to the patient at time of visit by the technologist. This patient's information was entered into a reminder system with a target due date for their next mammogram. Electronically signed by: Kishore Flood MD 03/16/2025 02:45 PM EDT
--- NOTE | ~2025-03-16 | US_ITS ---
EXAMINATIONS: 1. MM DIAGNOSTIC DIGITAL BREAST TOMOSYNTHESIS, LEFT 2. Targeted ultrasound of the left breast CLINICAL INFORMATION: Callback from screening for left breast focal asymmetry at approximately 9 o'clock position. COMPARISON: February 21, 2025 and February 21, 2024 TECHNIQUE: Digital breast tomosynthesis is performed in full-field ML 90 degrees view along with computer-aided detection (CAD). Synthesized 2D images are generated from the tomosynthesis. Spot compression tomosynthesis images were also obtained. FINDINGS: BREAST COMPOSITION: There are scattered areas of fibroglandular density (ACR BI-RADS breast composition Category b). LEFT BREAST: Previously described focal asymmetry at about 9 o'clock position is identified measuring approximately 0.7 cm in size at 7.5 cm from the nipple (spot CC , full-field ML 90 degrees ). Targeted ultrasound of the left breast was performed at the location of the mammographic finding. The survey shows a 0.6 x 0.4 x 0.4 cm cyst at 9 o'clock position 4 cm from the nipple. No internal vascularity demonstrated with color Doppler evaluation. US/US breast LT limited mamm only IMPRESSION: LEFT BREAST: 0.6 cm cyst at 9 o'clock position 4 cm from the nipple. Benign, no mammographic evidence of malignancy. Normal interval follow-up is recommended in 12 months. ASSESSMENT: BI-RADS 2 - Benign Findings RECOMMENDATION: 1 year F/U Results were provided to the patient at time of visit by the technologist. This patient's information was entered into a reminder system with a target due date for their next mammogram. Electronically signed by: Kishore Flood MD 03/16/2025 02:45 PM EDT
--- OUTSIDE RECORDS SUMMARY | 2025-03-16 12:27 | XMS_ITS | Clinical Summary ---
Author Organization [address] [facility] Address [address] [place] [address] Phone Care Team Providers Care Adzing And Boring Machine Feeder Name Role Phone Corrine Spangler MD Primary Care Provider [phone] Encounters Date Type Department Care Team Description 02/23/2025 Lab Requisition [facility] - Main Lab [address] [place] [address] Mamadou Schmid PA Urinary tract [...] cloacae complex(A) [place] 02/25/2025 10:20 AM EDT [facility] Comment: This is an [...] COREY MUNOZ Final Result [facility] ([facility]) [facility] [address] [place] [address], [place] [phone] from Last 3 Months Insurance MEDICARE [facility] Care Teams Adzing And Boring Machine Feeder Relationship Specialty Start Date End Date Corrine Spangler MD [address] [place] [address] PCP - General Internal Medicine 02/23/25
--- OUTSIDE RECORDS SUMMARY | 2025-03-16 12:27 | XMS_ITS | Patient Health Record ---
Author Organization [facility] Address [address] [place] [address] Care Team Providers Care Employment Consultant Name Role Phone Corrine Spangler MD Primary Care Provider Nishant Amaro [phone] Allergies Allergen (clinical drug ingredient) Drug/Non Drug [...] Problem Status W/U Status Risk Notes Problem 80491888 Pancreatic cyst (K86.2) Active confirmed Problem 44738185 Constipation, unspecified constipation type (K59.00) Active confirmed Problem 112070589 Abdominal pain, left lower quadrant (R10.32) Active confirmed Problem 16892866 Irritable bowel syndrome, unspecified type (K58.9) Active confirmed Problem 67984315 Hypertension, unspecified type (I10) Active confirmed Plan Of Treatment No Information Insurance Providers Payer Name Payer Address Payer Phone Subscriber Number Group Number Insured Name Patient Relationship to Insured Coverage Start Date Coverage End Date MEDICARE OF [place] [address] [place] [address] [id number] HOOD CASTILLO Self - patient is the insured [facility] [address] [place] [address] [id number] HOOD CASTILLO Self - patient is the insured Medical (General) History Medical History History ICD Code Chronic diarrhea/IBS-colonos copy biopsies negative for colitis in 1994 and labs neg. for celiac disease in 2009 Colon polyps-tubular adenoma s removed in 1999 and 2009-colonoscopy was negative in 2004 except for AVM's NIDDM Hyperlipidemia Hypertension Breast [id number] lumpectomy with XRT UTI's Denies [place],CVA,renal disease Bronchitis Pancreatic cysts seen on MRI in 09/[address] scan in November of 2022 Asthma Surgical History Surgery Date(Month/Year) Cholecystectomy JOANA Rectovaginal fistula repair in 1994 Bladder suspension Veins in LE's Breast cancer as above
== END 2025-03-16 12:26 | disposition home or self-care (01) ==
LOC: HO.MAMMO 12:25
PROVIDERS: PCP Internal Medicine; Visit Provider Internal Medicine
DX: N64.89 Other specified disorders of breast (principal)
CPT/HCPCS: 76642; 77061; 77065

== ENCOUNTER → 2025-03-16 12:30 | Outpatient (BNV) | payer MEDICARE, OTHER, SELFPAY | PROVIDERS: PCP Internal Medicine; Visit Provider Radiology Body Imaging | DX: N60.02 Solitary cyst of left breast (principal) | CPT/HCPCS: 76642; 77065; G0279 ==

== ENCOUNTER 2025-03-29 09:02 | Outpatient (AMB) | payer MEDICARE, OTHER, SELFPAY ==
--- OUTSIDE RECORDS SUMMARY | 2025-02-16 09:45 | XMS_ITS ---
Author Organization [facility] Address [address] [place] [address] Care Team Providers Care Commercial Relationship Manager Name Role Phone Corrine Spangler MD Primary Care Provider Reese Mancilla Unavailable [phone] Allergies Allergen (clinical drug ingredient) Drug/Non Drug [...] MG 2 tablets Orally Active Ozempic Active [place] 3 Active Encounters Encounter Location Date Provider Diagnosis [facility] [address] [address] 02/16/2025 Reese Garcia Plan Of Treatment Next Appt Details Provider Name:Reese Garcia , 05/08/2025 01:30:00 PM, [address] [place] [address], [address], Progress Notes * Genie RAO EDOB:1 09/27/1939 (84 yo F)Acc No.[id number]:02/16/2025 Progress Note Patient: Nilsa Genie CHANG E Provider: Raquel Garcia DPM :1940 A ge:84 Y S ex:Female Date:02/16/2025 Address:[address] [place], [place] [id number] Pcp:Corrine Spangler MD Subjective: * Chief Complaints: * * Medical History: A rthritis, Asthma, Back,Hip,and Knee pain, Cancer, Cataracts, Diabetes mellitus type 2 , Gall bladder problems, High blood pressure, Polio, Chronic sinusitis, Measles, Mumps, Chicken pox, Transfusions, Reflux. * Medications: T kota Stuart , Taking [place] 3 , Taking Albuterol , Taking dilTIAZem [...] 0 02/16/2025 Generated for Mary quezada/Caridad on: 03/29/2025 09:54 AM EDT
--- NOTE | 2025-03-29 09:23 | AM.OFFWIN_ITS ---
Intake Vital Signs 03/29/25 09:24 Height 5 ft 2 in Weight 146 lb BMI 26.7 BP 142/70 H Blood Pressure Location Rt brachial Position Sitting Pulse 84 Pulse Source Pulse Oximeter Temp 98.3 F Temp Source Oral Pulse Oximetry (%) 96 Oxygen Delivery Method Room Air Intake Visit Reasons: possible sprained wrist Intake Note: pt presents with left wrist and 4th-5th finger pain and swelling - denies injury Patient Tobacco Use Status: Never used Tobacco Allergies alendronate sodium (From FOSAMAX) Allergy (Intermediate, Verified 03/29/25 09:25) DIARRHEA ciprofloxacin (CIPROFLOXACIN) Allergy (Intermediate, Verified 03/29/25 09:25) HEADACHE,SOB hydrochlorothiazide (HYDROCHLOROTHIAZIDE) Allergy (Intermediate, Verified 03/29/25 09:25) HEADACHE,DIZZINESS, Gi upset levofloxacin (From LEVAQUIN) Allergy (Intermediate, Verified 03/29/25 09:25) HEADACHE,SOB metformin (METFORMIN) Allergy (Intermediate, Verified 03/29/25 09:25) DIARRHEA, Gi upset pravastatin (PRAVASTATIN) Allergy (Intermediate, Verified 03/29/25 09:25) HEADACHE,SOB, Gi upset simvastatin (SIMVASTATIN) Allergy (Intermediate, Verified 03/29/25 09:25) HEADACHE,SOB, Gi upset canagliflozin (From INVOKANA) Adverse Reaction (Intermediate, Verified 03/29/25 09:25) DIARRHEA dapagliflozin (From FARXIGA) Adverse Reaction (Intermediate, Verified 03/29/25 09:25) DIARRHEA dulaglutide (From Trulicity) Adverse Reaction (Intermediate, Verified 03/29/25 09:25) skin bumps mannitol (From Reclast) Adverse Reaction (Verified 03/29/25 09:25) bone pain water for injection,sterile (From Reclast) Adverse Reaction (Verified 03/29/25 09:25) bone pain zoledronic acid (From Reclast) Adverse Reaction (Verified 03/29/25 09:25) bone pain From PERCOCET Adverse Reaction (Mild, Uncoded 03/10/25 11:20) NAUSEA Do you need a note to return to daycare/school/sports/work: No HPI HPI Comments History of Present Illness Details History of Present Illness - The patient is an 84-year-old female p resenting with swelling and pain in the left wrist. - Swelling began three days ago, with th e patient unable to move or bend the arm. - Ice application and huang bandage use pr ovided some relief, but the arm remains warm and red. - No fever, numbness, or tingling report ed, and no history of trauma. - The patient has a history of recurrent urinary tract infections and is currently on nitrofurantoin therapy. - She has not had a fever. - She denies elbow pain, upper arm pain, shoulder pain, numbness, or tingling. Physical Exam General: Cooperative, healthy appearing, comfortable, no acute distress and well developed Orientation: Patient oriented x3 Respiratory: Normal respiratory effort and able to speak in complete sentences. Clear to auscultation bilaterally Cardiovascular: Regular rate and rhythm. Normal S1 and S2. Pulses are 2+ on UE bilaterally. Skin: Erythema and swelling to the left wrist. No lesions noted. No abscess or discharge noted. Neuro: Sensation is intact Extremities: Swelling and redness in the left wrist, limited movement, pain on palpation on the medial and lateral wrist, hard to open her fingers and thumb on the left. Patient was informed and verbally consented to the use of an ambient scribe for clinic note documentation during this visit. [facility] Medical History Annual physical exam Asthma Diabetes mellitus HTN (hypertension) Diastolic dysfunction Family history of total abdominal hysterectomy and bilateral salpingo- oophorectomy (JOANA-BSO) Surgical History Hx of bilateral cataract extraction History of bladder suspension procedure History of lumpectomy of right breast History of trigger finger History of urethrocutaneous fistula Hx of hysterectomy Hx of section Hx of appendectomy Family History Father CAD (coronary artery disease) Mother Parkinson disease Mental health disorder Brother Diabetes Melanoma Social History Housing: House Alcohol intake: never Patient Tobacco Use Status: Never used Tobacco e-Cigarette/Vaping Use: Never Used Second Hand Smoke Exposure: No service: No Current occupational status: retired 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 Cognitive needs: No Hearing needs: No Vision needs: Yes Review of Systems Const All systems reviewed & are unremarkable except as noted in HPI and below Physical Exam Vital Signs: Last Vital Signs Temp 98.3 F 03/29/25 09:24 Pulse 84 03/29/25 09:24 BP 142/70 H 03/29/25 09:24 Pulse Ox 96 03/29/25 09:24 Oxygen Delivery Method Room Air 03/29/25 09:24 BMI result Body Mass Index 26.7 Results Reviewed Results Reviewed: Reviewed x-ray in the office Assessment & Plan Assessment & Plan (1) Left wrist pain: Code(s): M25.532 - Pain in left wrist Plan Most likely sprain vs cellulitis vs joint infection vs gout plan - An x-ray was ordered to assess the joint for any underlying issues. - Splint for the wrist was recommended to manage symptoms. - Consideration of joint infection due to redness and warmth - rest, ice, and elevation to the wrist - naproxen BID for pain - prednisone for 5 days due to inflammation and possible gout? - also will add an antibiotic for ?cellulitis or joint infection - follow up with PCP Orders: Orders XR wrist LT min 3V Today M25.532 - Pain in left wrist Medications: New prednisone 40 mg (2 x 20 mg) PO DAILY 10 tabs 0RF 5 days naproxen 500 mg PO Q12H PRN 20 tabs 0RF pain 7 days cefpodoxime must administer with a meal/food 200 mg PO Q12H 14 tabs 0RF Refilled naproxen 500 mg PO Q12H PRN 20 tabs 0RF pain 7 days Discontinued omeprazole Discontinued Reason: Doctor's Order 20 mg PO DAILY 90 caps 3RF Coding Level of Care Code Est Pt Level 4 (88224) Diagnoses Left wrist pain M25.532
[2025-03-29 09:24] VITALS: BP 142/70; PULSE 84; TEMP 36.8; O2SAT 96; BMI 26.7
--- OUTSIDE RECORDS SUMMARY | 2025-03-29 09:54 | XMS_ITS | Encounter Summary ---
Author Organization [facility] Address [address] [place] [address] Care Team Providers Care Yard Manager Name Role Phone Corrine Spangler MD Primary Care Provider [phone] Encounter Details Date Type Department Care Team (Late st Contact Info) Description 02/23/2025 Lab Requisition [facility] - Main Lab [address] [facility] [place] [address] Mamadou Schmid, [address] [place], [place] [id number] Urinary tract infection, site not specified Social History Tobacco Use Types Packs/Day Years Used Date Smoking Tobacco: Never Assessed Comments Unknown Sex and Gender Information Value Date Recorded Sex Assigned at Not on file Legal Sex Female 1:28 PM EDT Gender Identity Not on file Sexual Orientation Not on file documented as of this encounter Plan of Treatment Not on file documented as of this encounter Procedures Procedure Name Priority Date/Time Associated Diagnosis Comments CULTURE URINE Routine 02/23/2025 11:40 AM EDT Urinary tract infection, site not specified documented in this encounter Results * (ABNORMAL) Culture urine (02/23/2025 11:40 AM EDT) Culture, Urine >=100,000 CFU/mL Enterobacter cloacae complex(A) [place] 02/25/2025 10:20 AM EDT [facility] Comment: This is an edited [...] complex Trimethoprim/Sulfamethoxazo le [place] <=20 ug/ml: Susceptible [facility] MICROBIOLOGY - GENERAL COREY MUNOZ Final Result [facility] ([facility]) [facility] [address] [place] [address], documented in this encounter Visit Diagnoses Diagnosis Urinary tract infection, site not specified documented in this encounter Care Teams Yard Manager Relationship Specialty Start Date End Date Corrine Spangler MD [address] [place] [address] PCP - General Internal Medicine 02/23/25 documented as of this encounter
--- OUTSIDE RECORDS SUMMARY | 2025-03-29 09:54 | XMS_ITS | Clinical Summary ---
Author Organization 299 [facility] Address [address] [place] [address] Phone Care Team Providers Care Instructor Bus Trolley And Taxi Name Role Phone Corrine Spangler MD Primary Care Provider [phone] Encounters Date Type Department Care Team Description 02/23/2025 Lab Requisition [facility] - Main Lab [address] [place] [address] Mamadou Schmid PA Urinary tract [...] complex(A) [place] 02/25/2025 10:20 AM EDT [facility] Comment: This is an edited [...] COREY MUNOZ Final Result [facility] ([facility]) [facility] [address] [place] [address], [place] [phone] from Last 3 Months Insurance MEDICARE [facility] Care Teams Instructor Bus Trolley And Taxi Relationship Specialty Start Date End Date Corrine Spangler MD [address] [place] [address] PCP - General Internal Medicine 02/23/25
--- OUTSIDE RECORDS SUMMARY | 2025-03-29 09:54 | XMS_ITS | Patient Health Record ---
Author Organization [facility] Address [address] [facility] [address] Care Team Providers Care Auriculotherapist Name Role Phone Corrine Spangler MD Primary Care Provider Reese Mancilla Unavailable [phone] Maritza Hazel Unavailable [phone] Allergies Allergen (clinical drug ingredient) Drug/Non Drug [...] 1 tab Oral; Duration: 14 days Not-Taking [place] 3 Active Losartan Potassium 100 MG Orally [...] Problem Acquired hammer toe of right foot (6071295357914 105) Other hammer toe(s) (acquired), right foot (M20.41) Active confirmed Response to treatment,I mprovement Problem Type 2 diabetes mellitus with peripheral angiopathy (958901901) Type 2 diabetes mellitus with diabetic peripheral angiopathy without gangrene (E11.51) Active confirmed Problem Other hammer toe(s) (acquired), left foot (M20.42) Active confirmed Response to treatment,I mprovement Vital Signs Blood pressure diastolic 60 mm Hg 11/14/2024 Height 5 ft 1 in in 11/14/2024 Blood pressure systolic 120 mm Hg 11/14/2024 Weight 144 lbs 11/14/2024 BMI 27.21 kg/m2 11/14/2024 Procedures Procedure Date Ordered Date Performed Result Body Sit e 37384-QABHBPY NAIL, 6 OR MORE 06/07/2024 N/A 84903-AORM SKIN LESIONS, OVER 4 06/07/2024 N/A 65194-OXOMRLW NAIL, 6 OR MORE 08/22/2024 N/A 10104-CEIJ SKIN LESIONS, OVER 4 08/22/2024 N/A 36652-LUOCCYG NAIL, 6 OR MORE 11/14/2024 N/A 14330-MLUD SKIN LESIONS, OVER 4 11/14/2024 N/A Encounters Encounter Location Date Provider Diagnosis [address] [address] 06/07/2024 Maritza Hazel Type 2 diabetes mellitus with diabetic peripheral angiopathy without gangrene E11.51 ; Tinea unguium B35.1 ; Pain in right toe(s) M79.674 and Pain in left toe(s) M79.[address] [address] 08/22/2024 Reese Garcia Type 2 diabetes mellitus with diabetic peripheral angiopathy without gangrene E11.51 ; Tinea unguium B35.1 ; Pain in right toe(s) M79.674 ; Pain in left toe(s) M79.675 ; Other hammer toe(s) (acquired), right foot M20.41 and Other hammer toe(s) (acquired), left foot M20.[address] [address] 11/14/2024 Reese Garcia Type 2 diabetes mellitus with diabetic peripheral angiopathy without gangrene E11.51 ; Tinea unguium B35.1 ; Pain in right toe(s) M79.674 and Pain in left toe(s) M79.[address] [address] 04/10/2024 Reese Garcia [facility] [place] [address] [place] [address] 02/15/2025 Reese Garcia Assessments Encounter Date Diagnosis (ICD Code) Assessment Notes Treatment Notes Treatment Clinical Notes Section Notes 06/07/2024 Type 2 diabetes mellitus with diabetic peripheral angiopathy without gangrene (ICD-10 - E11.51) 06/07/2024 Tinea unguium (ICD-10 - B35.1) 08/22/2024 Type 2 diabetes mellitus with diabetic peripheral angiopathy without gangrene (ICD-10 - E11.51) 08/22/2024 Tinea unguium (ICD-10 - B35.1) 11/14/2024 Type 2 diabetes mellitus with diabetic peripheral angiopathy without gangrene (ICD-10 - E11.51) 11/14/2024 Tinea unguium (ICD-10 - B35.1) 08/22/2024 Pain in right toe(s) (ICD-10 - M79.674) 11/14/2024 Pain in right toe(s) (ICD-10 - M79.674) 06/07/2024 Pain in right toe(s) (ICD-10 - M79.674) 06/07/2024 Pain in left toe(s) (ICD-10 - [...] Test Name Order Date Hemoglobin A1c 09/03/2015 21160-JKOSHQQ NAIL, 6 OR MORE 12/06/2015 98414-YLSFMPV NAIL, 6 OR MORE 09/03/2015 72698-TOKUYXB NAIL, 6 OR MORE 03/10/2016 44422-RVWOZJG NAIL, 6 OR MORE 06/09/2016 10383-MJHECWG NAIL, 6 OR MORE 09/01/2016 46317-MFXVGAR NAIL, 6 OR MORE 11/24/2016 37962-RBFLROB NAIL, 6 OR MORE 04/18/2021 88397-YKAEGZK NAIL, 6 OR MORE 07/04/2021 99884-GPWGIPX NAIL, 6 OR MORE 09/16/2021 63202-PCRSLXY NAIL, 6 OR MORE 02/16/2017 80050-JBLQVOJ NAIL, 6 OR MORE 04/27/2017 74904-PSXFJNF NAIL, 6 OR MORE 07/20/2017 36484-IODWYBG NAIL, 6 OR MORE 09/28/2017 84609-DRXCLBD NAIL, 6 OR MORE 11/30/2017 08351-MMEFLDH NAIL, 6 OR MORE 02/15/2018 22460-GWNCTTN NAIL, 6 OR MORE 05/10/2018 33255-XXDEQMJ NAIL, 6 OR MORE 08/19/2018 58185-ZYRRGAE NAIL, 6 OR MORE 11/04/2018 72532-HDYBANG NAIL, 6 OR MORE 01/24/2019 28420-UHXSIFU NAIL, 6 OR MORE 06/13/2019 27186-KJJLYFU NAIL, 6 OR MORE 08/22/2019 63142-BSDUDBI NAIL, 6 OR MORE 10/31/2019 14993-RBOJXRR NAIL, 6 OR MORE 01/09/2020 04085-LVRIEUS NAIL, 6 OR MORE 03/19/2020 12515-LBNIWCA NAIL, 6 OR MORE 06/21/2020 45088-DTEUOPG NAIL, 6 OR MORE 08/30/2020 76101-RSQUFON NAIL, 6 OR MORE 11/05/2020 98813-CCGIVEO NAIL, 6 OR MORE 01/10/2021 72205-IDLHBXC NAIL, 6 OR MORE 11/25/2021 39846-ZGMPXOC NAIL, 6 OR MORE 01/30/2022 65206-XEKKCFJ NAIL, 6 OR MORE 04/14/2022 29425-ZAOQXWZ NAIL, 6 OR MORE 08/07/2022 79934-CQTDWDX NAIL, 6 OR MORE 10/16/2022 33943-WGXWBZK NAIL, 6 OR MORE 01/05/2023 90516-ZBEGZDI NAIL, 6 OR MORE 03/16/2023 51730-SNKAYYI NAIL, 6 OR MORE 05/25/2023 25467-LCWIQSU NAIL, 6 OR MORE 08/06/2023 25500-DDHKHJI NAIL, 6 OR MORE 10/19/2023 53838-AOOOHCU NAIL, 6 OR MORE 03/21/2024 71161-GCHZFTP NAIL, 6 OR MORE 06/07/2024 59779-ZMWNMMO NAIL, 6 OR MORE 08/22/2024 10504-VFYFXKO NAIL, 6 OR MORE 11/14/2024 89400-Tjaxteov Plate 01/10/2021 89085-Fukuugws Plate 11/24/2016 85163-Xoomevaj Plate 09/01/2016 43002-Uekqtaam Plate 06/09/2016 53170-Wnkaauza Plate 03/10/2016 05897-Irkfktsg Plate 09/03/2015 92838-Gnlwnlxj Plate 12/06/2015 94902-NSCA SKIN LESIONS, OVER 4 11/15/19 25 59587-VQMM SKIN LESIONS, OVER 4 08/22/19 25 00377-DIKQ SKIN LESIONS, OVER 4 06/07/20 24 94081-WEJG SKIN LESIONS, OVER 4 10/19/19 24 63031-AQDS SKIN LESIONS, OVER 4 03/21/20 24 39696-FMHN SKIN LESIONS, OVER 4 08/06/19 24 28785-DYYD SKIN LESIONS, OVER 4 05/25/20 23 61479-OKAU SKIN LESIONS, OVER 4 03/16/20 23 27862-TTWS SKIN LESIONS, 2 TO 4 01/06/20 23 34565-CZST SKIN LESIONS, 2 TO 4 10/17/19 23 33502-HPUU SKIN LESIONS, 2 TO 4 08/07/19 23 56147-RDEA SKIN LESIONS, 2 TO 4 04/14/20 22 31529-IFQG SKIN LESIONS, 2 TO 4 01/31/20 22 85577-DNRI SKIN LESIONS, 2 TO 4 11/26/19 22 03242-JNIW SKIN LESIONS, 2 TO 4 09/16/19 22 32529-UOZK SKIN LESIONS, 2 TO 4 07/04/20 Next Appt Details Provider Name:Reese Garcia , 05/08/2025 01:30:00 PM, [address] [place] [address], [address], Insurance Providers Payer Name Payer Address Payer Phone Subscriber Number Group Number Insured Name Patient Relationship to Insured Coverage Start Date Coverage End Date Medicare [facility] [employer] [address] [place] [address] [id number] Genie Escalera Self - patient is the insured 3 [place] [address] [place] [phone] [id number] JameslazaroKianna Genie goodman Self - patient is the insured Medical (General) History Medical History History ICD Code Arthritis Asthma Back,Hip,and Knee pain Cancer Cataracts Diabetes mellitus type 2 Gall bladder problems High blood pressure Polio chronic sinusitis Measles Mumps Chicken pox Transfusions Reflux Surgical History Surgery Date(Month/Year) gall bladder 1967 breast surgery hysterectomy bladder suspension vein surgery (LT leg) right carpal tunnel [facility] 05/04/2018 hand surgery- trigger finger right 2020 sx underarm 12/15/21 Hospitalization History Reason Date(Month/Year) [facility] ER-Coronavirus symptoms- not tested- said asthma and allergies 10/24/2019 [facility] ER for coughing- lesion found in samuel ngs 09/13/2017 pneumonia 11/24-11/26/15
--- OUTSIDE RECORDS SUMMARY | 2025-03-29 09:54 | XMS_ITS | Patient Health Record ---
Author Organization [facility] Address [address] [place] [address] Care Team Providers Care Lab Technician Name Role Phone Corrine Spangler MD Primary Care Provider Nishant Amaro [phone] Allergies Allergen (clinical drug ingredient) Drug/Non Drug [...] Problem Status W/U Status Risk Notes Problem 07844567 Pancreatic cyst (K86.2) Active confirmed Problem 18863294 Constipation, unspecified constipation type (K59.00) Active confirmed Problem 092487894 Abdominal pain, left lower quadrant (R10.32) Active confirmed Problem 26371754 Irritable bowel syndrome, unspecified type (K58.9) Active confirmed Problem 49293934 Hypertension, unspecified type (I10) Active confirmed Plan Of Treatment No Information Insurance Providers Payer Name Payer Address Payer Phone Subscriber Number Group Number Insured Name Patient Relationship to Insured Coverage Start Date Coverage End Date MEDICARE OF [place] [address] [place] [address] [id number] HOOD CASTILLO Self - patient is the insured [facility] [address] [place] [address] [phone] [id number] HOOD CASTILLO Self - patient is the insured Medical (General) History Medical History History ICD Code Chronic diarrhea/IBS-colonos copy biopsies negative for colitis in 1994 and labs neg. for celiac disease in 2009 Colon polyps-tubular adenoma s removed in 1999 and 2009-colonoscopy was negative in 2004 except for AVM's NIDDM Hyperlipidemia Hypertension Breast [id number] lumpectomy with XRT UTI's Denies [place],CVA,renal disease Bronchitis Pancreatic cysts seen on MRI in 09/[address] scan in November of 2022 Asthma Surgical History Surgery Date(Month/Year) Cholecystectomy JOANA Rectovaginal fistula repair in 1994 Bladder suspension Veins in LE's Breast cancer as above
== END 2025-03-29 11:07 | disposition home or self-care (01) ==
PROVIDERS: PCP Internal Medicine; Visit Provider Physician Assistant Medical
DX: M25.532 Pain in left wrist (principal)

== ENCOUNTER 2025-03-29 09:02 | Outpatient (REF) | payer MEDICARE, OTHER, SELFPAY ==
--- OUTSIDE RECORDS SUMMARY | 2022-10-09 17:01 | XMS_ITS | Continuity of Care Document ---
Author Organization [facility] Address [address] [place] [address] [address] [place] [phone] Phone Care Team Providers Care Mat Linker Name Role Phone Niall Dai MD, FACS, RVT Unavailable Unavailable Advance Directives Directive Yes / No Effective Date File Name No Information Encounters Encounter Description Practice Location Reason(s) For Visit Diagnoses Date Provider Providers Copied on Encounter [facility], [address] [facility] [address], [place], [id number], tel:[phone] [address] [facility] No Information Sep- 0 3 Agustín Garcia. [address] [facility], [facility] [address], [place], [address], [place]. tel:[phone] Referring Provider: Corrine Spangler MD S, [address] [place] [address], [address]. tel:[phone] Family History Family Member Type Diagnosis Age At Onset No Information Payers Payer name Insurance type Covered libertarian ID Authoriza tion(s) No Information Social History [...]
--- NOTE | ~2025-03-29 | XR_ITS ---
EXAMINATION: XR WRIST, LEFT CLINICAL INFORMATION: M25.532 - Pain in left wrist COMPARISON: None available. TECHNIQUE: PA, lateral, and oblique views of the left wrist. FINDINGS: There is diffuse osteopenia. There is subchondral sclerosis and marginal osteophyte formation involving the scaphoid trapezium trapezoid joint and the first carpal metacarpal joint. Chondrocalcinosis is visible in the triangular fibrocartilage and scaphoid articular cartilage and in the soft tissues dorsal to the carpus. No fracture is evident. Moderate to severe atherosclerotic calcifications are evident in the ulnar artery. 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 Osteopenia. Atherosclerotic disease. Electronically signed by: Varun Bazan MD 03/29/2025 10:29 AM EDT
== END 2025-03-29 09:03 | disposition home or self-care (01) ==
LOC: HO.HMGCX 09:02
PROVIDERS: PCP Internal Medicine; Visit Provider Physician Assistant Medical
DX: M25.532 Pain in left wrist (principal); M25.432 Effusion, left wrist; Z79.52 Long term (current) use of systemic steroids
CPT/HCPCS: 73110; 99212

== ENCOUNTER → 2025-03-29 10:13 | Outpatient (BNV) | payer MEDICARE, OTHER, SELFPAY | PROVIDERS: PCP Internal Medicine; Visit Provider Radiology Diagnostic Radiology | DX: M19.032 Primary osteoarthritis, left wrist (principal) | CPT/HCPCS: 73110 ==

== ENCOUNTER 2025-04-05 06:36 | Outpatient (REF) | payer MEDICARE, OTHER, SELFPAY ==
--- OUTSIDE RECORDS SUMMARY | 2022-10-09 17:01 | XMS_ITS | Continuity of Care Document ---
Author Organization [facility] Address [address] [place] [address] [address] [place] [phone] Phone Care Team Providers Care Dope Weigh Operator Name Role Phone Niall Dai MD, FACS, RVT Unavailable Unavailable Advance Directives Directive Yes / No Effective Date File Name No Information Encounters Encounter Description Practice Location Reason(s) For Visit Diagnoses Date Provider Providers Copied on Encounter [facility], [address] [facility] [address] [facility] [address], [place], [id number], tel:[phone] [address] [facility] No Information Sep- 0 3 Agustín Garcia. [address] [facility], [facility] [address], [place], [address], [place]. tel:[phone] Referring Provider: Corrine Spangler MD S, [address] [place] [address], [address]. tel:[phone] Family History Family Member Type Diagnosis Age At Onset No Information Payers Payer name Insurance type Covered democrat ID Authoriza tion(s) No Information Social History [...]
--- OUTSIDE RECORDS SUMMARY | 2024-06-20 06:45 | XMS_ITS ---
Author Organization [facility] Address [address] [place] [address] Care Team Providers Care Rn Field Name Role Phone Corrine Spangler MD Primary Care Provider Reese Mancilla Unavailable [phone] Encounters Encounter Location Date Provider Diagnosis [address] [address] 06/20/2024 Reese Garcia Plan Of Treatment Next Appt Details Provider Name:Reese Garcia , 05/08/2025 01:30:00 PM, [address] [place] [address], [phone], Progress Notes * Genie RAO EDOB:1 09/27/1939 (84 yo F)Acc No.[id number]:06/20/2024 Progress Note Patient: Genie BARRAZA Provider: Hermelinda Garcia DPM :1940 A ge:83 Y S ex:Female Date:06/20/2024 Address:[address] [place], [place] [id number] Pcp:Corrine Spangler MD Subjective: * Chief Complaints: * * Medical History: Objective: * Vitals: Assessment: Plan: * Treatment: * Images: * The named appointment provid er may or may not be the originator of this progress note, and it is not deemed complete until electronically signed by the appointment provider. Sign off status: Pending * Provider: Hermelinda Garcia DPM Date: 1 08/20/2023 Generated for Mary quezada/Rupa/Eddie on: 0 04/05/2025 06:39 AM EDT
--- OUTSIDE RECORDS SUMMARY | 2024-07-04 05:30 | XMS_ITS ---
Author Organization [facility] Address [address] [place] [address] Care Team Providers Care Kaiawhina Name Role Phone Corrine Spangler MD Primary Care Provider Reese Mancilla Unavailable [phone] REASON FOR VISIT r/s for sooner apt Encounters Encounter Location Date Provider Diagnosis [address] [address] 07/04/2024 Reese Garcia Plan Of Treatment Next Appt Details Provider Name:Reese Garcia , 05/08/2025 01:30:00 PM, [address] [place] [address], [phone], Progress Notes * Genie RAO EDOB:1 09/27/1939 (84 yo F)Acc No.[id number]:07/04/2024 Progress Note Patient: Genie BARRAZA Provider: Hermelinda Garcia DPM :1940 A ge:83 Y S ex:Female Date:07/04/2024 Address:[facility] [place] Pcp:Corrine Spangler MD Subjective: * Chief Complaints: [...] Date: 09/04/2023 Generated for Mary Sarah on: 04/05/2025 06:39 AM EDT
--- OUTSIDE RECORDS SUMMARY | 2025-02-16 09:45 | XMS_ITS ---
Author Organization [facility] Address [address] [place] [address] Care Team Providers Care Design Consultant Name Role Phone Corrine Spangler MD Primary Care Provider Reese Mancilla Unavailable [phone] Allergies Allergen (clinical drug ingredient) Drug/Non Drug [...] MG 2 tablets Orally Active Ozempic Active [place] 3 Active Encounters Encounter Location Date Provider Diagnosis [facility] [address] [address] 02/16/2025 Reese Garcia Plan Of Treatment Next Appt Details Provider Name:Reese Garcia , 05/08/2025 01:30:00 PM, [address] [place] [address], [address], Progress Notes * Genie RAO EDOB:1 09/27/1939 (84 yo F)Acc No.[id number]:02/16/2025 Progress Note Patient: Nilsa Genie CHANG E Provider: Raquel Garcia DPM :1940 A ge:84 Y S ex:Female Date:02/16/2025 Address:[address] [place], [place] [id number] Pcp:Corrine Spangler MD Subjective: * Chief Complaints: * * Medical History: A rthritis, Asthma, Back,Hip,and Knee pain, Cancer, Cataracts, Diabetes mellitus type 2 , Gall bladder problems, High blood pressure, Polio, Chronic sinusitis, Measles, Mumps, Chicken pox, Transfusions, Reflux. * Medications: T kota Stuart , Taking [place] 3 , Taking Albuterol , Taking dilTIAZem [...] 0 02/16/2025 Generated for Mary quezada/Caridad on: 04/05/2025 06:39 AM EDT
--- OUTSIDE RECORDS SUMMARY | 2025-04-05 06:39 | XMS_ITS | Patient Health Record ---
Author Organization [facility] Address [address] [place] [address] Care Team Providers Care Sewing Machine Assembler Name Role Phone Corrine Spangler MD Primary Care Provider Nishant Amaro [phone] Allergies Allergen (clinical drug ingredient) Drug/Non Drug [...] Problem Status W/U Status Risk Notes Problem 92087577 Pancreatic cyst (K86.2) Active confirmed Problem 17843242 Constipation, unspecified constipation type (K59.00) Active confirmed Problem 950155423 Abdominal pain, left lower quadrant (R10.32) Active confirmed Problem 06523390 Irritable bowel syndrome, unspecified type (K58.9) Active confirmed Problem 58874426 Hypertension, unspecified type (I10) Active confirmed Plan Of Treatment No Information Insurance Providers Payer Name Payer Address Payer Phone Subscriber Number Group Number Insured Name Patient Relationship to Insured Coverage Start Date Coverage End Date MEDICARE OF [place] [address] [place] [address] [id number] HOOD CASTILLO Self - patient is the insured [facility] [address] [place] [address] [id number] HOOD CASTILLO Self - patient is the insured Medical (General) History Medical History History ICD Code Chronic diarrhea/IBS-colonos copy biopsies negative for colitis in 1994 and labs neg. for celiac disease in 2009 Colon polyps-tubular adenoma s removed in 1999 and 2009-colonoscopy was negative in 2004 except for AVM's NIDDM Hyperlipidemia Hypertension Breast [id number] lumpectomy with XRT UTI's Denies [place],CVA,renal disease Bronchitis Pancreatic cysts seen on MRI in 09/[address] scan in November of 2022 Asthma Surgical History Surgery Date(Month/Year) Cholecystectomy JOANA Rectovaginal fistula repair in 1994 Bladder suspension Veins in LE's Breast cancer as above
--- OUTSIDE RECORDS SUMMARY | 2025-04-05 06:39 | XMS_ITS | Clinical Summary ---
Author Organization [address] [facility] Address [address] [place] [address] Phone Care Team Providers Care Air Bag Builder Name Role Phone Corrine Spangler MD Primary Care Provider [phone] Encounters Date Type Department Care Team Description 02/23/2025 Lab Requisition [facility] - Main Lab [address] [place] [address] Mamadou Schmid PA Urinary tract [...] nts (1 - 1-dose 75+ series) 2013 Depression Screening 08/02/2024 Falls Risk Assessment 02/24/2025 Medicare Annual Wellness Visit 02/24/2025 Osteoporosis Screening (Bone Density Screening) 02/24/2025 Social Influencers of Health Screening 02/24/2025 COVID-19 Vaccine ( - 2023-2 5 season) 2025 Influenza Vaccine (#1) 2025 HIB Vaccines Aged [...] cloacae complex(A) [place] 02/25/2025 10:20 AM EDT [facility] Comment: This is an edited [...] Mamadou STEIN LAB MICROBIOLOGY - GENERAL COREY MNUOZ Final Result [facility] ([facility]) [facility] [address] [place] [address], [place] [phone] from Last 3 Months Insurance MEDICARE [facility] Care Teams Air Bag Builder Relationship Specialty Start Date End Date Corrine Spangler MD [address] [place] [address] PCP - General Internal Medicine 02/23/25
--- OUTSIDE RECORDS SUMMARY | 2025-04-05 06:39 | XMS_ITS | Patient Health Record ---
Author Organization [facility] Address [address] [facility] [place] [address] Care Team Providers Care Entertainment & Media Correspondent Name Role Phone Corrine Spangler MD Primary Care Provider Reese Mancilla Unavailable [phone] Maritza Hazel Unavailable [phone] Allergies Allergen (clinical drug ingredient) Drug/Non Drug [...] 1 tab Oral; Duration: 14 days Not-Taking [place] 3 Active Losartan Potassium 100 MG Orally [...] Problem Acquired hammer toe of right foot (3862144082952 105) Other hammer toe(s) (acquired), right foot (M20.41) Active confirmed Response to treatment,I mprovement Problem Type 2 diabetes mellitus with peripheral angiopathy (549592080) Type 2 diabetes mellitus with diabetic peripheral angiopathy without gangrene (E11.51) Active confirmed Problem Acquired hammer toe of left foot (7449514283817 103) Other hammer toe(s) (acquired), left foot (M20.42) Active confirmed Response to treatment,I mprovement Vital Signs Blood pressure diastolic 60 mm Hg 11/14/2024 Height 5 ft 1 in in 11/14/2024 Blood pressure systolic 120 mm Hg 11/14/2024 Weight 144 lbs 11/14/2024 BMI 27.21 kg/m2 11/14/2024 Procedures Procedure Date Ordered Date Performed Result Body Sit e 10849-QAONMKT NAIL, 6 OR MORE 06/07/2024 N/A 02178-LWJL SKIN LESIONS, OVER 4 06/07/2024 N/A 47781-TXBIIXN NAIL, 6 OR MORE 08/22/2024 N/A 34172-YUNM SKIN LESIONS, OVER 4 08/22/2024 N/A 79550-SZNCDSG NAIL, 6 OR MORE 11/14/2024 N/A 26924-XQXX SKIN LESIONS, OVER 4 11/14/2024 N/A Encounters Encounter Location Date Provider Diagnosis [address] [address] 06/07/2024 Maritza Hazel Type 2 diabetes mellitus with diabetic peripheral angiopathy without gangrene E11.51 ; Tinea unguium B35.1 ; Pain in right toe(s) M79.674 and Pain in left toe(s) M79.[address] [address] 08/22/2024 Reese Garcia Type 2 diabetes mellitus with diabetic peripheral angiopathy without gangrene E11.51 ; Tinea unguium B35.1 ; Pain in right toe(s) M79.674 ; Pain in left toe(s) M79.675 ; Other hammer toe(s) (acquired), right foot M20.41 and Other hammer toe(s) (acquired), left foot M20.[address] [address] 11/14/2024 Reese Garcia Type 2 diabetes mellitus with diabetic peripheral angiopathy without gangrene E11.51 ; Tinea unguium B35.1 ; Pain in right toe(s) M79.674 and Pain in left toe(s) M79.675 [facility] [address] [address] 04/10/2024 Reese Garcia [facility] [place] [address] [place] [address] 02/15/2025 Reese Garcia Assessments Encounter Date Diagnosis [...] Test Name Order Date Hemoglobin A1c 09/03/2015 47183-AEXUYHN NAIL, 6 OR MORE 12/06/2015 45098-INGNCYR NAIL, 6 OR MORE 09/03/2015 08411-XQFIUGU NAIL, 6 OR MORE 03/10/2016 31219-DLEQYPE NAIL, 6 OR MORE 06/09/2016 92579-WNLJIFS NAIL, 6 OR MORE 09/01/2016 75384-KPNUUFG NAIL, 6 OR MORE 11/24/2016 43504-YDDKOIW NAIL, 6 OR MORE 04/18/2021 77979-HMQMKJR NAIL, 6 OR MORE 07/04/2021 49786-LDSTUJQ NAIL, 6 OR MORE 09/16/2021 04512-UHTUPKV NAIL, 6 OR MORE 02/16/2017 74015-FQANZFA NAIL, 6 OR MORE 04/27/2017 75075-YNSNCVK NAIL, 6 OR MORE 07/20/2017 00812-QCZJIDE NAIL, 6 OR MORE 09/28/2017 34411-WOJWVLJ NAIL, 6 OR MORE 11/30/2017 00976-RPTDNVD NAIL, 6 OR MORE 02/15/2018 12154-CAZVBYG NAIL, 6 OR MORE 05/10/2018 06359-GRXOYVF NAIL, 6 OR MORE 08/19/2018 83218-LPYPKQR NAIL, 6 OR MORE 11/04/2018 59386-FVFKKLB NAIL, 6 OR MORE 01/24/2019 10937-GGNIZXC NAIL, 6 OR MORE 06/13/2019 45171-BJFAQXO NAIL, 6 OR MORE 08/22/2019 81351-LUBHZHN NAIL, 6 OR MORE 10/31/2019 50153-MJBMATO NAIL, 6 OR MORE 01/09/2020 19286-ZEEIRTY NAIL, 6 OR MORE 03/19/2020 48061-QBTHBKI NAIL, 6 OR MORE 06/21/2020 19053-DOPIXTS NAIL, 6 OR MORE 08/30/2020 67692-IQTGAIL NAIL, 6 OR MORE 11/05/2020 69669-JUSHVXE NAIL, 6 OR MORE 01/10/2021 24842-BZPYZUV NAIL, 6 OR MORE 11/25/2021 63119-TASDRND NAIL, 6 OR MORE 01/30/2022 82324-XPIJJTL NAIL, 6 OR MORE 04/14/2022 53518-BNIJMHO NAIL, 6 OR MORE 08/07/2022 48413-TSYOPRF NAIL, 6 OR MORE 10/16/2022 96653-PZHRSCE NAIL, 6 OR MORE 01/05/2023 53001-BGLLNVM NAIL, 6 OR MORE 03/16/2023 76988-OUSTASN NAIL, 6 OR MORE 05/25/2023 87897-TKYKFWF NAIL, 6 OR MORE 08/06/2023 32235-CLWZXUK NAIL, 6 OR MORE 10/19/2023 91176-YXAFSLE NAIL, 6 OR MORE 03/21/2024 58442-SUQINRL NAIL, 6 OR MORE 06/07/2024 50827-YEJMVQJ NAIL, 6 OR MORE 08/22/2024 10301-DYIVPRO NAIL, 6 OR MORE 11/14/2024 18421-Wsoswila Plate 01/10/2021 39521-Sqbhzcij Plate 11/24/2016 44759-Vlyyfywq Plate 09/01/2016 95428-Xerpwptt Plate 06/09/2016 33805-Kddqcqfg Plate 03/10/2016 32559-Arvmyjbi Plate 09/03/2015 40411-Nqtwkdas Plate 12/06/2015 22588-WNZB SKIN LESIONS, OVER 4 11/15/19 25 73621-RHCT SKIN LESIONS, OVER 4 08/22/19 25 40069-QRGL SKIN LESIONS, OVER 4 06/07/20 24 48509-WMIF SKIN LESIONS, OVER 4 10/19/19 24 33932-ZRUJ SKIN LESIONS, OVER 4 03/21/20 24 02037-VEWQ SKIN LESIONS, OVER 4 08/06/19 24 69970-OOEL SKIN LESIONS, OVER 4 05/25/20 23 47132-ABEY SKIN LESIONS, OVER 4 03/16/20 23 16119-EIVJ SKIN LESIONS, 2 TO 4 01/06/20 23 34852-JTPW SKIN LESIONS, 2 TO 4 10/17/19 23 53988-ZMBA SKIN LESIONS, 2 TO 4 08/07/19 23 92625-FXXT SKIN LESIONS, 2 TO 4 04/14/20 22 89905-TEOC SKIN LESIONS, 2 TO 4 01/31/20 22 76708-DPKZ SKIN LESIONS, 2 TO 4 11/26/19 22 63667-XGDT SKIN LESIONS, 2 TO 4 09/16/19 22 97745-XBQR SKIN LESIONS, 2 TO 4 07/04/20 21 Next Appt Details Provider Name:Reese Garcia , 05/08/2025 01:30:00 PM, [address] [place] [address], [place], [address], Insurance Providers Payer Name Payer Address Payer Phone Subscriber Number Group Number Insured Name Patient Relationship to Insured Coverage Start Date Coverage End Date Medicare National [employer] [address] [place] [address] [id number] Genie Escalera Self - patient is the insured 3 [facility] [address] [place] [phone] [id number] Prince rexGenie rodgers Self - patient is the insured Medical (General) History Medical History History ICD Code Arthritis Asthma Back,Hip,and Knee pain Cancer Cataracts Diabetes mellitus type 2 Gall bladder problems High blood pressure Polio chronic sinusitis Measles Mumps Chicken pox Transfusions Reflux Surgical History Surgery Date(Month/Year) gall bladder 1967 breast surgery hysterectomy bladder suspension vein surgery (LT leg) right carpal tunnel [facility] [place] hand surgery- trigger finger right 2020 sx underarm 12/15/21 Hospitalization History Reason Date(Month/Year) [facility] [place]on[place] symptoms- not tested- said asthma and allergies 10/24/2019 [facility]- lesion found in samuel ngs 09/13/2017 pneumonia 11/24-11/26/15
--- OUTSIDE RECORDS SUMMARY | 2025-04-05 06:40 | XMS_ITS | Encounter Summary ---
Author Organization [facility] Address [address] [place] [address] Care Team Providers Care Carpenter Foreman Name Role Phone Corrine Spangler MD Primary Care Provider [phone] Encounter Details Date Type Department Care Team (Late st Contact Info) Description 02/23/[address] [facility] - Main Lab [address] [facility] [place] [address] Mamadou Schmid, [address] [place], [place] [id number] Urinary tract infection, site not specified Social [...] cloacae complex(A) [place] 02/25/2025 10:20 AM EDT [facility] Comment: This is an edited [...] complex Trimethoprim/Sulfamethoxazo le [place] <=20 ug/ml: Susceptible [facility] MICROBIOLOGY - GENERAL COREY MUNOZ Final Result [facility] [address] [place] [address], documented in this encounter Visit Diagnoses Diagnosis Urinary tract infection, site not specified documented in this encounter Care Teams Carpenter Foreman Relationship Specialty Start Date End Date Corrine Spangler MD [address] [place] [address] PCP - General Internal Medicine 02/23/25 documented as of this encounter
[2025-04-05 10:30] LABS: Hemoglobin A1C 193.3060 umol/L; Total Hemoglobin (HGBA1C) 3279.0715 umol/L
[2025-04-05 10:40] LABS: Alanine Aminotransferase 30 U/L (0-31); Albumin Level 4.0 g/dL (3.5-5.0); Alkaline Phosphatase 114 U/L (39-117); Anion Gap 13 (12-20); Aspartate Amino Transferase 26 U/L (5-31); Blood Urea Nitrogen 23 mg/dL (9-16); Calcium 9.5 mg/dL (8.4-10.2); Carbon Dioxide 29 mmol/L (22-29); Chloride 106 mmol/L (96-108); Cholesterol 183 mg/dL (<200); Estimated Glomerular Filt Rate > 60; HDL Cholesterol 43 mg/dL (>40); Potassium 3.7 mmol/L (3.3-5.1); Sodium 144 mmol/L (135-145); Total Protein 6.6 g/dL (6.5-8.0); Triglycerides 182 mg/dL (<150)
== END 2025-04-05 06:37 | disposition home or self-care (01) ==
LOC: HO.HMGCLDS 06:36
PROVIDERS: PCP Internal Medicine; Visit Provider Internal Medicine
DX: I10 Essential (primary) hypertension (principal); E11.9 Type 2 diabetes mellitus without complications
CPT/HCPCS: 36415; 80053; 80061; 83036

== ENCOUNTER 2025-04-10 12:29 | Outpatient (AMB) | payer MEDICARE, OTHER, SELFPAY ==
--- OUTSIDE RECORDS SUMMARY | 2024-07-04 05:30 | XMS_ITS ---
Author Organization [facility] Address [address] [place] [address] Care Team Providers Care Chef Broiler Or Fry Name Role Phone Corrine Spangler MD Primary Care Provider UnavailReese Pastor Unavailable [phone] REASON FOR VISIT r/s for sooner apt Encounters Encounter Location Date Provider Diagnosis [address] [address] 07/04/2024 Reese Garcia Plan Of Treatment Next Appt Details Provider Name:Reese Garcia , 07/24/2025 02:45:00 PM, [address] [place] [address], [phone], Progress Notes * Genie RAO EDOB:1 09/27/1939 (84 yo F)Acc No.[id number]:07/04/2024 Progress Note Patient: Genie BARRAZA Provider: Hermelinda Garcia DPM :1940 A ge:83 Y S ex:Female Date:07/04/2024 Address:[facility] [place] Pcp:Corrine Spangler MD Subjective: * Chief Complaints: [...] 09/04/2023 Generated for Mary Sarah on: 0 04/10/2025 02:50 PM EDT
--- OUTSIDE RECORDS SUMMARY | 2025-02-16 09:45 | XMS_ITS ---
Author Organization [facility] Address [address] [place] [address] Care Team Providers Care Appliance Mechanic Name Role Phone Corrine Spangler MD Primary Care Provider Reese Mancilla Unavailable [phone] Allergies Allergen (clinical drug ingredient) Drug/Non Drug [...] MG 2 tablets Orally Active Ozempic Active [place] 3 Active Encounters Encounter Location Date Provider Diagnosis [facility] [address] [address] 02/16/2025 Reese Garcia Plan Of Treatment Next Appt Details Provider Name:Reese Garcia , 07/24/2025 02:45:00 PM, [address] [place] [address], [phone], Progress Notes * Genie RAO EDOB:1 09/27/1939 (84 yo F)Acc No.[id number]:02/16/2025 Progress Note Patient: Nilsa Genie CHANG Provider: Raquel Garcia DPM :1940 A ge:84 Y S ex:Female Date:02/16/2025 Address:[address] [place], [place] [phone] Pcp:Corrine Spangler MD Subjective: * Chief Complaints: * * Medical History: A rthritis, Asthma, Back,Hip,and Knee pain, Cancer, Cataracts, Diabetes mellitus type 2 , Gall bladder problems, High blood pressure, Polio, Chronic sinusitis, Measles, Mumps, Chicken pox, Transfusions, Reflux. * Medications: T kota Stuart , Taking [place] 3 , Taking Albuterol , Taking dilTIAZem [...] Pending * Provider: Raquel Garcia DPM Date: 02/16/2025 Generated for Mary quezada/Caridad on: 04/10/2025 02:50 PM EDT
--- OUTSIDE RECORDS SUMMARY | 2025-04-10 07:15 | XMS_ITS ---
Author Organization [facility] Address [address] [place] [address] Care Team Providers Care Color Room Attendant Name Role Phone Corrine Spangler MD Primary Care Provider Reese Mancilla Unavailable [phone] Allergies Allergen (clinical drug ingredient) Drug/Non Drug [...] simvastatin Simvastatin diarrhea Drug Allergy Act chey REASON FOR VISIT At Risk Footcare, Painful Nail(s) aggravated by shoes and causing difficulty standing/walking, Toe Irritation Medications Medication SIG (Take, Route, Frequency, Duration) Notes Start Date End Date Status carBAMazepine Not-Ta christian Januvia 100 MG Orally Not-T aking Losartan Potassium 100 MG Orally Not-Taking ProAir HFA PRN Not-Takin g Calcium 1 tab Oral; Duration: 14 days Not-Taking Fish Oil 1360 MG 1 capsule Orally Once a day; Duration: 30 day(s) Not-Taking Prolia 60 MG/ML as directed Subcutaneous 2 TIMES YEARLY Not-Taking Montelukast Sodium 10 MG 1 tablet Orally Once a day Not-Taking Trulicity 3 MG/0.5ML as directed Subcutaneous Not-Taking aspirin 81 mg daily Not-Ta christian Fluticasone Propionate HFA 220 MCG/ACT Inhalation; Duration: 60 Days Active Vitamin E Active Trulicity 1.5 MG/0.5ML Subcutaneous; Duration: 84 Days Active Vitamin C Active Vitamin D 25 MCG (1000 UT) 1 tablet Orally Once a day; Duration: 30 day(s) Active Omeprazole 20 MG 1 capsule 30 minutes before morning meal Orally Once a day Active Probiotic - as directed Orally Active Methenamine Hippurate 1 GM 1 tablet Orally Twice a day Active Turmeric Curcumin 500 MG as directed Orally Active Vitamin B 12 100 MCG as directed Orally Active glipiZIDE XL 10 MG 1 tablets Orally Twice daily Active Magnesium 500 MG 1 tablet with a meal Orally Once a day; Duration: 30 day(s) Active dilTIAZem HCl 120 MG 2 tablets Orally Active Flovent HFA PRN Active Albuterol Active Extra Depth Orthopedic Shoes, (1) Pair With (3) Pair Custom Heat Molded Multidensity Innersoles Dx: NIDDM/PVD(E11.51), Hammertoe Foot Deformity(M20.41,M20 .42), Preulcerative Skin Lesion(s)(L85.1) Wear Daily; Duration: 365 days 04/10/2025 Active Audubon 3 Not-Taking Nitrofurantoin Macrocrystal 50 MG 2 capsules at bedtime with food or milk Orally Once a day Active Ozempic Not-Taking Social History Tobacco Use: Social History [...] Signs Height 5 ft 1 in in 04/10/2025 Weight 142 lbs 04/10/2025 BMI 26.83 kg/m2 04/10/2025 Blood pressure systolic 120 mm Hg 04/10/20 25 Blood pressure diastolic 60 mm Hg 025 Procedures Procedure Date Ordered Date Performed Result Body Sit e 98783-TZUOXEY NAIL, 6 OR MORE 04/10/2025 N/A 10128-WZTO SKIN LESIONS, OVER 4 04/10/2025 N/A Encounters Encounter Location Date Provider Diagnosis [facility] [address] [place] [address] 04/10/2025 Reese Garcia Type 2 diabetes mellitus with diabetic peripheral angiopathy without gangrene E11.51 ; Tinea unguium B35.1 ; Pain in right toe(s) M79.674 ; Pain in left toe(s) M79.675 ; Other hammer toe(s) (acquired), left foot M20.42 and Other hammer toe(s) (acquired), right foot M20.41 Assessments Encounter Date Diagnosis (ICD Code) Assessment Notes Treatment Notes Treatment Clinical Notes Section Notes 04/10/2025 Type 2 diabetes mellitus with diabetic peripheral angiopathy without gangrene (ICD-10 - E11.51) Q7(A), Q8(2B), Q9(1B,2C) 04/10/2025 Tinea unguium (ICD-10 - B35.1) 04/10/2025 Pain in right toe(s) (ICD-10 - M79.674) 04/10/2025 Pain in left toe(s) (ICD-10 - M79.675) 04/10/2025 Other hammer toe(s) (acquired), left foot (ICD-10 - M20.42) 04/10/2025 Other hammer toe(s) (acquired), right foot (ICD-10 - M20.41) Patient Educated with: DIABETIC FOOT CARE INSTRUCTIONS.p df (DIABETIC FOOT CARE INSTRUCTIONS.p df) Plan Of Treatment Medication Medication Name Sig Start Date Stop Date Notes Extra Depth Orthopedic Shoes , (1) Pair With (3) Pair Custom Heat Molded Multidensity Innersoles Dx: NIDDM/PVD(E11.51), Hammertoe Foot Deformity(M20.41,M20.42), Preulcerative Skin Lesion(s)(L85.1) Wear Daily; Duration: 365 days 04/10/2025 Treatment Notes Assessment Notes Other hammer toe(s) (acquired), right fo ot Patient Educated with: DIABETIC FOOT CARE INSTRUCTIONS.pdf (DIABETIC FOOT CARE INSTRUCTIONS.pdf) Pending Test Test Name Order Date 35225-ZOFEGYE NAIL, 6 OR MORE 04/10/2025 88603-HPQP SKIN LESIONS, OVER 4 04/10/20 25 Next Appt Details Follow Up: prn, Reason: Provider Name:Reese Garcia , 07/24/2025 02:45:00 PM, [address] [place], [address], Procedure Notes * Category Sub-Category Detail Notes [...] use of a nail nipper and/or dremel-type magnetic grinder operator, to a more viable healthy nail plate [...] to maintain effectiveness in symptomatic relief - 42299 Keratoma Treatment Parring or Cutting o f [...] instrumentation by the physician of record - 85313, Q8 Progress Notes * Genie RAO EDOB:1 09/27/1939 (84 yo F)Acc No.[id number]:04/10/2025 Progress Note Patient: Nilsa Genie CHANG Provider: Raquel Garcia DPM :1940 A ge:84 Y S ex:Female Date:04/10/2025 [facility] [id number] Pcp:Corrine Spangler MD Subjective: * Chief Complaints: * A t Risk FootcarePainful Nail(s) aggravated by shoes and causing difficulty standing/walkingToe Irritation * HPI: A t Risk footcare: Pt States Last PCP Visit: D ate 0 04/10/2025 T oe pain: Location: B /L feet. Duration: s everal years. Course: w orse. Aggravated by: s hoes, any pressure. Treatments: c hange in shoes. * ROS: G eneral/Constitutional: Nausea d enies. V omiting d enies. H keely Thirst d enies. L oss appetite d enies. C hills d enies. F atigue d enies.?Fever d enies. N ight Sweats d enies. U nexplained weight loss d enies. O phthalmologic: Blurred vision d enies. R ed eye d enies. ? H EENTM: Dentures d enies. D izziness d enies. G lasses/contacts a dmits. R etinopathy d enies. B lurred/double vision d enies. T MJ?denies. D ischarge/drainage d enies. I mplants d enies. H mickie of hearing denies. D ifficulty chewing/swallowing/speaking d enies. N ose bleeds d enies.?Sore mouth d enies. S wollen glands d enies. R espiratory: On Oxygen d enies. P neumonia/pleurisy d enies.?Bronchitis d enies. E mphysema d enies. C oughing d enies. C ough blood?denies. S hortness of breath d enies. W heezing d enies. C ardiovascular: Pacemaker d enies. M JET MAN d enies. W PW d enies. C HF d enies. H eart attack d enies. S eptal defect d enies. R apid beat d enies. C hest pain d enies. A trial Fib. d enies. M urmur/Palpitations d enies. G astrointestinal: Hemorrhoids d enies. S tomach/Abdominal pain d enies. D ark blood stool d enies. I rritable bowel d enies. C onstipation d enies. D iarrhea d enies. V omiting d enies. H ematology: Swelling d enies. B ruising a dmits, on aspirin.?Bleeding problem a dmits, on anticoagulants. G enitourinary: Blood urine d enies. F requent/Painfu/urination/bladder control d enies. K idney stones d enies. I nfection (UTI) d enies. N ephropathy d enies. M usculoskeletal: Hammertoes a dmits. B unions d enies. S coliosis/kyphosis d enies. M uscle cramps / walking d enies. G eneralized aches and pains?denies. W eakness d enies. I nteg.: Hickey d enies. S cars d enies. C orns/calluses?admits. I ngrown nails a dmits. P ainful nails a dmits. R ashes d enies. N eurologic: Difficulty sleeping a dmits. B ipolar d enies. B rain disorder d enies. B alance trouble a dmits. C onfusion d enies. F ainting/blackouts d enies. H eadache d enies. T remors d enies. * Medical History: * Surgical History: g all bladder 1967breast surgery hysterectomy bladder suspension vein surgery (LT leg) right carpal tunnel [facility] 05/04/2018hand surgery- trigger finger right 1sx underarm 12/15/21 * Hospitalization/Major Diagno stic Procedure: p neumonia 11/24-11/26/15[facility]- ER for coughing- lesion found in lungs 09/13/2017[facility] ER-Coronavirus symptoms- not tested- said asthma and allergies 10/24/2019[facility]- back ache 03/26 * Family History: M other: . F ather: . S iblings: diagnosed with Diabetic - NIDDM, Unspecified essential hypertension. C amadeo: diagnosed with Other malignant neoplasm of unspecified site, Diabetic - NIDDM, Unspecified essential hypertension. * Social History: T obacco Use: T obacco use other than smoking A re you an other tobacco user? N o Tobacco Control (Standard) T obacco use: N onsmoker A dditional Findings: Tobacco non-user C urrent nonsmoker M iscellaneous: C affeine: yes, decaff, 1-2 cups per day. Children: yes. Exercise: no. Marital status: . 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 D rug/Alcohol: A JENSEN-C (Standard) D id you have a drink containing alcohol in the past year? N o P oints 0 I nterpretation N egative * Medications: T akingNitrofurantoin Macrocrystal 50 MG Capsule 2 capsules at bedtime with food or milk Orally Once a day Albuterol dilTIAZem HCl 120 MG Tablet 2 [...] Propionate HFA 220 MCG/ACT Aerosol Inhalation Taking Nitrofurantoin Macrocrystal 50 MG Capsule 2 capsules at bedtime with food or milk Orally Once a day Taking Albuterol Taking dilTIAZem HCl 120 MG [...] Fluticasone Propionate HFA 220 MCG/ACT Aerosol Inhalation Not-Taking/PRNOzempic Audubon 3 Montelukast Sodium 10 MG Tablet 1 tablet [...] List reviewed and reconciled with the patientNot-Taking/PRN Ozempic Not-Taking/PRN Audubon 3 Not-Taking/PRN Montelukast Sodium 10 MG Tablet 1 [...] reviewed and reconciled with the patient * Allergies: H ydrochlorothiazide: diarrheaPravastatin Sodium: diarrheaSimvastatin: diarrheaMetformin HCl: diarrheaCiprofloxacin: diarrheaLevofloxacin: diarrheaFosamax: diarrheayes[Allergies Verified] Objective: * Vitals: H t: 5 ft 1 in, Wt: 142, BMI: 26.83, Shoe size: 8.5, BP: 120/60 mm Hg, BS: 114, Ht-cm: 154.94 cm, Wt-k.41 kg. * P ast Orders: L ab:HEMOGLOBIN A1C (GLYCOHEMOGLOBIN) (Order Date - 06/02/2024) (Collection Date & Time - 04/10/2025 11:45 AM) Value Reference Range HEMOGLOBIN A1C % (HH) 6.5 * Examination: O phthalmology Referral: DIABETES EYE EXAM P rocedure Performed: Sydney Nice ate of Exam Performed 0 10/31/2024 D iabetic Retinopathy Screening: Y es R etinal Screening Performed: Y es F indings of Diabetic Eye Exam: n o retinopathy V ascular: DP PULSES (B): 1/4, B/L. PT PULSES (B): 0/4, B/L. CAPILLARY FILL TIME: delayed, all digits, B/L. TROPHIC CONDITION-TEXTURE/ELASTICITY/TURGOR/HAIR GROWTH (B):? decreased, f ragile, thin, shiny skin, with sparse to absent hair growth, B/L. TEMPERTURE GRADIENT (C): decreased, cool to cool, proximal to distal, B/L. PIGMENTATION: mottled, B/L. EDEMA (C): a bsent, B/L. CLAUDICATION (C): d enies, B/L. REST PAIN: d enies, B/L. N ails: NAILS are: E longated, overgrown, dystrophic, lytic, greater than 3mm thick, discolored and friable with crumbly malodorous subungual debris, with pain on palpation, TA, T1, T3, T4, T5, T6, T9, all other nails not described with characteristics as possessing mycosis are elongated, overgrown, and dystrophic. D ermatologic: SKIN FINDINGS: Skin exam reveals Keratotic lesion(s) located at, Plantar, T1, Dorsal, PIPJ, T4, Plantar, T6, Dorsal, PIPJ, T9,Plantar, Heel(s), B/L. ? O rthopedic: MUSCLE STRENGTH: 5 /5 all groups in a symmetrical fashion , B/L. FOOT MORPHOLOGY: Pes Planus structure, No Charcot collapse/destruction noted at MTJ. DIGITAL DEFORMITIES: D igital contracture, PIPJ, 2-5 B/L, incompl-reducible to push-up test, no over, nor underlapping, w ith evidence of shoe producing skin irritation. FOOTWEAR EVALUATION: w orn, OT were inspected and noted to be severely worn , in poor condition not giving proper support at the present time, shoegear properties exacerbate patient's foot/toe deformity . N eurological: SENSORY: N eurological exam reveals intact sensorium, pain sensation normal, vibration sensation intact, pinprick sensation is normal in the lower extremities, 5.07 monofilament test performed at plantar aspects of 5 varied sites per foot shows sensation, normal, B/L, Pt denies, anesthesia, burning, paresthesia, tingling, B/L. G eneral Examination: GENERAL APPEARANCE: R denises a pleasant, alert, well nourished, well-developed, well hydrated individual, who demonstrates proper attention to hygiene/body habitus, and is in no acute distress, Pt serves as own historian for office visit today. ORIENTED: p erson, place, and time. FOOT EXAM: L ower Extremity Neurological Exam performed:?Yes V isual exam of foot performed: Y es D ate 0 04/10/2025 Footwear Evaluation F ootwear Evaluation performed: Y es Assessment: * Assessment: 1. T ype 2 diabetes mellitus with diabetic peripheral angiopathy without gangrene - E11.51 S pecify :Q8 N otes :Q7(A), Q8(2B), Q9(1B,2C) 2 . T inea unguium - B35.1 3 . P ain in right toe(s) - M79.674 4 . P ain in left toe(s) - M79.675 5 . O ther hammer toe(s) (acquired), left foot - M20.42 S pecify :Chronic problem, Worse (4), Rx Management (4) 6 . O ther hammer toe(s) (acquired), right foot - M20.41 (Primary) ?Specify :Chronic problem, Worse (4), Rx Management (4) Plan: * Treatment: 2. T ype 2 diabetes mellitus with diabetic peripheral angiopathy without gangrene P rocedure: 02611-WHIJ SKIN LESIONS, OVER 4 3. T inea unguium P rocedure: 09215-OYZVIHA NAIL, 6 OR MORE * Procedures: D ebride Nail 6-10: Nail debridement D ue to the clinical pathology outlined in the exam findings, performance of this nail treatment is medically necessary as its management by an unskilled/untrained nonprofessional would put this patients foot and overall health at risk. Therefore, debridement to affected nail(s), as described in exam ( T A, T 1, T 3, T 4, T 5, T 6, T 9 ) , was performed exclusively by the physician of record to reduce/remove overall nail length, girth, thickness, subungual debris, and necrotic tissue, by manual and/or electrical means through the use of a nail nipper and/or dremel-type magnetic grinder operator, to a more viable healthy nail plate [...] to maintain effectiveness in symptomatic relief - 79375. K eratoma Treatment: Parring or Cutting of Benign Hyperkeratotic Lesion(s) ( -57) More than 4 Lesions - Due to [...] stated and described in the exam ( P lantar, T 1, D orsal, P IPJ, T 4, P lantar, T 6, D orsal, P IPJ, T 9,Plantar, H eel(s), B /L ) , were pared, and/or cut utilizing a sterile 15 blade, tissue nippers, and/or power dremel instrumentation by the physician of record - 86887, Q8. * Procedure Codes: 1 1721 DEBRIDE NAIL, 6 OR MORE, Modifiers: XS 45993 TRIM SKIN LESIONS, OVER 4, Modifiers: XS , Q8 * Preventive Medicine: Counseling: D iscussion: - 14: Office or other outpatient visit for the evaluation and management of an established patient, which required a medically appropriate history and/or examination and MODERATE level of DECISION MAKING for: 1 OR MORE CHRONIC PROBLEM(S) THATS WORSENING, 2 STABLE CHRONIC PROBLEMS, A NEWLY DIAGNOSED PROBLEM WITH UNCERTAIN PROGNOSIS, AN ACUTE COMPLICATED INJURY WITH MULTIPLE TREATMENT OPTIONS, OR AN ACUTE PROBLEM WITH ACCOMPANYING SYSTEMIC SYMPTOMS, THAT POSE(S) A MODERATE RISK OF MORBIDITY. THIS CONDITION MAY ALSO INCLUDE RX DRUG MANAGEMENT, OR A DECISON FOR MINOR SURGERY. The visit on the day of the [...] have encouraged the patient to call the office. A t Risk Diabetic/ASO/PVD Footcare: T he patient was advised against self nail/callus care due to inherent risks for infection, loss of limb/life given , diabetes, peripheral vascular disease. D igital Surgery: D igital surgery was discussed with the patient, We elected to try conservative treatment at the present time, due to the patients medical history and increased asssociated post-operative risks. D igital Treatment: H T- I explained to the patient the possible etiologies of Hammertoes, including genetics/foot type/shoegear/activity level/exercise routine and the risks/benefits of all the different treatment options for their pain including: No treatment at all, Rest, Ice, New/supportive/wider/deeper Shoegear, Digital Padding/Strapping/Taping/Bracing/Gel protective sleeves, Foot/Ankle AFO Bracing, Stretching exercises, Deep Tissue Massage, Arch support/shoe inserts with splay metatarsal padding, and Custom orthoses. I insisted that any digital devices be removed daily and not worn overnight for safety. The patient is to carefully examine the toes daily for any skin irritation while using any splinting or padding device. The advantages and disadvantages of each option were discussed and the patients questions re: shoegear, padding, custom vs prefabricated inserts, activity level, and consistency in home treatment regimens for optimal success were answered to their verbally confirmed satisfaction. Aggie kurtz Gear Counseling: Aggie KURTZ Rx - The patient was counseled in great detail on their muscoloskeletal foot and toe deformities which coincided with the dermatological presentations visualized on exam. We discussed how their deformities put the integrity of their feet at risk for potential pedal complications which makes the accomidative diabetic shoes and cutomizable inserts medically necessary. We discussed the different shoe and insert treatment types and options, as well as the important advantages for adhering to regularly wearing these accomidative devices daily. The patient was made aware of the fact that a failure to abide by these recommedations may be deleterious to their foot health as they are able to prevent many pedal complications such as skin irritation, skin ulceration, infection, and even loss of toe/foot/leg/or life. Time was also spent with the patient dispensing and discussing proper diabetic footcare techniques including daily skin moisturization, daily foot inspection for any interruption in skin integrity including open lesions, or sign of infection such as redness/malodor/drainage/swelling. Also discussed and recommended were procedures regarding daily shoe inspection for the presence of internal foreign bodies as well as any visualized irregular shoe or insert wear. Patient questions re: shoes, inserts, and self foot inspections were answered to their satisfaction as the patient verbally confirmed a full understanding of the above information. A Rx for Extra Depth Orthopedic Shoes with 3 pair of custom heat-molded inserts was dispensed. Screening/Special Tests: F all Risk Screening: N o falls in the past year F ALLS: Screening for Future Fall Risk Have you had any falls with injury in the past year? N o * Follow Up: p rn * Images: * Sign off status: Completed true * Provider: Raquel Garcia DPM Date: 04/10/2025 Generated for Mary quezada/Rupa/Eddie on: 04/10/2025 02:49 PM EDT History and Physical Notes * HPI (History of Present Illness) Category Sub-Category Detail Notes Category Not es Toe pain Location: B/L feet Duration: several years Course: worse Aggravated by: shoes, any pressure Treatments: change in shoes At Risk footcare Pt States Last PCP Visit: Date: Examination Category Sub-Category Detail Notes Category Not [...] T6, Dorsal, PIPJ, T9,Plantar, Heel(s), B/L Orthopedic FOOT MORPHOLOGY: Pes Planus stru cture, No Charcot collapse/destruction noted at MTJ FOOTWEAR EVALUATION: worn, OT were inspe cted and noted to be severely worn , in poor condition not giving proper support at the present time, shoegear properties exacerbate patient's foot/toe deformity DIGITAL DEFORMITIES: Digital contracture , PIPJ, 2-5 B/L, incompl-reducible to push-up test, no over, nor underlapping, with evidence of shoe producing skin irritation MUSCLE STRENGTH: 5/5 all groups in a symmetrical fashion , B/L General Examination GENERAL APPEARANCE: Reveals a pleasant, alert, well nourished, well-developed, well hydrated individual, who demonstrates proper attention to hygiene/body habitus, and is in no acute distress, Pt serves as own historian for office visit today FOOT EXAM: Lower Extremity Neurological Exa m performed:: Yes Visual exam of foot performed:: Yes Date: 04/10/2025 ORIENTED: person, place, and t huy Footwear Evaluation Footwear Evaluation performe d:: Yes Ophthalmology Referral DIABETES EYE EXAM Procedure Perform ed:: Yes Date of Exam Performed: 10/31/2024 Diabetic Retinopathy Screening:: [...]
[2025-04-10 12:48] VITALS: BP 126/64; PULSE 73; RESP 18; TEMP 36.9; O2SAT 97; BMI 26.3
--- NOTE | 2025-04-10 12:48 | A.OFFVIS_ITS ---
Intake Vital Signs 04/10/25 12:48 Height 5 ft 2 in Weight 144 lb BMI 26.3 BP 126/64 Blood Pressure Location Lt brachial Position Sitting Respiration 18 Pulse 73 Pulse Source Pulse Oximeter Temp 98.4 F Temp Source Oral Pulse Oximetry (%) 97 Oxygen Delivery Method Room Air Intake Visit Reasons: AWV Intake Note: Pt is here today for AWV. Allergies alendronate sodium (From FOSAMAX) Allergy (Intermediate, Verified 04/10/25 12:51) DIARRHEA ciprofloxacin (CIPROFLOXACIN) Allergy (Intermediate, Verified 04/10/25 12:51) HEADACHE,SOB hydrochlorothiazide (HYDROCHLOROTHIAZIDE) Allergy (Intermediate, Verified 04/10/25 12:51) HEADACHE,DIZZINESS, Gi upset levofloxacin (From LEVAQUIN) Allergy (Intermediate, Verified 04/10/25 12:51) HEADACHE,SOB metformin (METFORMIN) Allergy (Intermediate, Verified 04/10/25 12:51) DIARRHEA, Gi upset pravastatin (PRAVASTATIN) Allergy (Intermediate, Verified 04/10/25 12:51) HEADACHE,SOB, Gi upset simvastatin (SIMVASTATIN) Allergy (Intermediate, Verified 04/10/25 12:51) HEADACHE,SOB, Gi upset canagliflozin (From INVOKANA) Adverse Reaction (Intermediate, Verified 04/10/25 12:51) DIARRHEA dapagliflozin (From FARXIGA) Adverse Reaction (Intermediate, Verified 04/10/25 12:51) DIARRHEA dulaglutide (From Trulicity) Adverse Reaction (Intermediate, Verified 04/10/25 12:51) skin bumps mannitol (From Reclast) Adverse Reaction (Verified 04/10/25 12:51) bone pain water for injection,sterile (From Reclast) Adverse Reaction (Verified 04/10/25 12:51) bone pain zoledronic acid (From Reclast) Adverse Reaction (Verified 04/10/25 12:51) bone pain From PERCOCET Adverse Reaction (Mild, Uncoded 04/10/25 12:51) NAUSEA Medication List - Last Reconciled 04/10/25 by Corrine Spangler MD acetaminophen (Tylenol) 325 mg PO QID PRN albuterol sulfate 90 mcg/actuation inhalation albuterol sulfate mg inhalation BID ascorbic acid (vitamin C) mg PO blood sugar diagnostic One touch test strips use 1 strip to test blood sugar once daily blood sugar diagnostic (OneTouch Ultra Test strips) USE DIRECTED TO TEST RIVERA GARS DAILY cefpodoxime 200 mg PO Q12H cholecalciferol (vitamin D3) 25 mcg PO DAILY cranberry extract (Theracran) 650 mg PO DAILY diltiazem HCl CD 240 mg PO DAILY diphenhydramine HCl (NightTime Sleep Aid (diphenhydramine)) 25 mg PO BEDTIME PRN dulaglutide (Trulicity) 1.5 mg (0.5 mL) subcut QWEEK estradiol 0.01%(0.1mg/gram) pea size to urethra daily; fluticasone propionate 220 mcg/actuation 1 inh inhalation BID glipizide ER 10 mg PO BID glycerin-min oil-polycarbophil (Replens vaginal gel) ea vaginal lactobacillus combination no.9 (Adult 50 Plus Probiotic) PO DAILY lidocaine 5% (Lidoderm) 1 patch topical DAILY magnesium 250 mg PO DAILY mecobalamin (vitamin B12) 1,000 mcg sublingual DAILY methenamine hippurate 1 g PO BID naproxen 500 mg PO Q12H PRN 7 days nitrofurantoin macrocrystal 50 mg PO DAILY omega-3 fatty acids-fish oil 360-1,200 mg (Fish Oil) 1 cap PO DAILY polaprezinc (zinc carnosine) PO Trulicity (dulaglutide) 3 mg (0.5 mL) subcut QWEEK NS HPI AWV HPI Details Initiated the conversation about Advanced Directives. Advanced Directives help? patients prepare for current and future decisions about their medical treatment? and place of care. Discussed with patient that it is a process where a patients? current condition and prognosis are reviewed, their wishes for information? regarding their illness are elicited, and likely medical dilemmas are presented? and options discussed. The form can be amended as needed, reviewed yearly and? make changes as needed IPPE/AWV ? year old presents? for her ? Annual? Wellness Visit, initial visit.? Medical / Social History Reviewed? Past Medical History ?Yes? . ? [facility]? of Care / Care Team list updated ?Yes . ? Surgical/Hospitalization? History ?Yes . ? Current Medications? (including OTC and supplements) ?Yes . ? Family History ?Yes? . ? Tobacco? Control form ?Yes . ? AUDIT-C (Alcohol use) form? ?Yes . ? Illicit drug use in Social? History ?Yes . ? Current diagnosis of? depression? ?No ? Appropriate PHQ2/PHQ9? completed ?Yes . ? Data entered by ?Medical? Slitting Machine Operator and reviewed by provider ? Fall Risk ? Fall? History? Have you had any falls with? injury in the past year? ?No . ? Have you had two or more? falls in the past year? ?No . ? Fall Risk Assessment: ?No? falls in the past year . ? HRA filled out by? the patient, reviewed by Provider and scanned. ? IPPE/AWV ? Balance? Romberg? ?Yes . ? Tandem? walk ?Yes . ? Walk and? Turn ?Yes . ? Rise from? sit to stand ?Yes . ?Vision? Corrective? lens ?Yes ? Vision? screen ? Up-to-date, has an appointment [] for vision? screening and glaucoma screening ?Hearing? Whisper? test ?pass .? Initiated the conversation about Advanced Directives. Advanced Directives help? patients prepare for current and future decisions about their medical treatment? and place of care. Discussed with patient that it is a process where a patients? current condition and prognosis are reviewed, their wishes for information? regarding their illness are elicited, and likely medical dilemmas are presented? and options discussed. The form can be amended as needed, reviewed yearly and? make changes as needed Written? Plan?Completed. See Patient? Documents. [facility] Medical History Annual physical exam Asthma Diabetes mellitus HTN (hypertension) Diastolic dysfunction Family history of total abdominal hysterectomy and bilateral salpingo- oophorectomy (JOANA-BSO) Surgical History Hx of bilateral cataract extraction History of bladder suspension procedure History of lumpectomy of right breast History of trigger finger History of urethrocutaneous fistula Hx of hysterectomy Hx of section Hx of appendectomy Family History Father CAD (coronary artery disease) Mother Parkinson disease Mental health disorder Brother Diabetes Melanoma Social History Housing: House Alcohol intake: never Patient Tobacco Use Status: Never used Tobacco e-Cigarette/Vaping Use: Never Used Second Hand Smoke Exposure: No service: No Current occupational status: retired 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 Cognitive needs: No Hearing needs: No Vision needs: Yes Questionnaire Medicare Wellness Checkup What is your age?: 80 or older What gender do you identify with?: female During the past 4 weeks, how much have you been bothered by emotional problems such as feeling anxious, depressed, irritable, sad or downhearted, and blue?: not at all During the past 4 weeks, has your physical & emotional health limited your social activities with family, friends, neighbors, or groups?: not at all During the past 4 weeks, how much bodily pain have you generally had?: moderate pain During the past 4 weeks, was someone available to help you if you needed & wanted help?: yes, some During the past 4 weeks, what was the hardest physical activity you could do for at least 2 minutes?: moderate Can you get to places out of walking distance without help? (For eg., can you travel alone on buses, taxis or drive your car?): Yes Can you go shopping for groceries or clothes without someone's help?: Yes Can you prepare your own meals?: Yes Can you do your housework without help?: Yes Because of any health problems, do you need the help of another person with your personal care needs such as eating, bathing, dressing or getting around the house?: No Can you handle your own money without help?: Yes During the past 4 weeks, how would you rate your health in general?: fair During the past 4 weeks how have things been going for you?: good & bad parts about equal Are you having difficulties driving your car?: no Do you always fasten your seat belt when you are in a car?: yes, usually During past 4 weeks, have you been bothered by the following: never: Sexual problems?, Trouble eating well?, Teeth or denture problems? and Problems using the telephone?, sometimes: Falling or dizzy when standing up and always: Tiredness or fatigue? Have you fallen 2 or more times in the past year?: No Are you afraid of falling?: No Are you a smoker?: no During the past 4 weeks, how many drinks of wine, beer, or other alcoholic beverages did you have?: no alcohol at all Do you exercise for about 20 minutes 3 or more times a week?: no, I usually do not exercise this much Have you been given information to help with the following?: no: Hazards in your house that might hurt you? and no: Keeping track of your medications? How often do you have trouble taking medicines the way you have been told to take them?: I always take medicine as prescribed How confident are you that you can control & manage most of your health problems?: somewhat confident What is your race?: White Mini Mental State Exam (MMSE) Orientation What is the (year) (season) (date) (day) (month)?: year, season, date, day and month Where are we (state) (county) (town or city) (hospital) (floor)?: state, county, town or city, hospital/clinic and floor Registration Name of 3 unrelated objects clearly and slowly, then ask patient to repeat all 3 of them. (1st repeat determines score. Make sure they can repeat all three): object 1, object 2 and object 3 Attention & Calculation (CHOOSE ONE) Spell WORLD backwards (DLROW): 5 letters Recall Ask patient to repeat the 3 items from question #3.: object 1, object 2 and object 3 Language Show patient a wristwatch & ask what it is. Repeat for pencil.: watch Ask the patient to repeat the phrase 'No ifs, ands, or buts' after you.: correct Ask the patient to 'take a piece of paper with their right hand' 'fold paper in half' 'place paper on floor': take paper in right hand, fold paper in half and place paper on floor Print the sentence 'CLOSE YOUR EYES' on a piece. If patient actually closes eyes then score.: followed written direction Give patient a blank piece of paper & ask to write a sentence. Score if it contains a noun & verb.: sentence contains subject and verb Score Score: 28 PHQ-9 Over the last 2 weeks, how often have you been bothered by any of the following problems? 1. Little interest or pleasure in doing things: nearly every day 2. Feeling down, depressed, or hopeless: several days 3. Trouble falling or staying asleep, or sleeping too much: several days 4. Feeling tired or having little energy: more than half the days 5. Poor appetite or overeating: not at all 6. Feeling bad about yourself - or that you are a failure or have let yourself or your family down: not at all 7. Trouble concentrating on things, such as reading the newspaper or watching television: not at all 8. Moving or speaking so slowly that other people could have noticed. Or the opposite - being so fidgety or restless that you have been moving around a lot more than usual: not at all 9. Thoughts that you would be better off or of hurting yourself in some way: not at all Total score: 7 Depression Screening Interpretation: Negative Depression Screening Done: Yes Source: Developed by Drs. Nishant Reyes, Bhavani Lee, Samy Voss and colleagues, with an educational kai from [employer] [place]. Review of Systems Const All systems reviewed & are unremarkable except as noted in HPI and below Eyes Reports no additional complaints ENT Reports no additional complaints Card Reports no additional complaints Resp Reports no additional complaints GI Reports no additional complaints Reports no additional complaints Physical Exam Vital Signs: Last Vital Signs Temp 98.4 F 04/10/25 12:48 Pulse 73 04/10/25 12:48 Resp 18 04/10/25 12:48 BP 126/64 04/10/25 12:48 Pulse Ox 97 04/10/25 12:48 Oxygen Delivery Method Room Air 04/10/25 12:48 BMI result Body Mass Index 26.3 Const General: no acute distress Eyes General: appearance normal, both eyes and all related structures Neck Neck: Yes no lymphadenopathy and Yes supple Resp Effort & Inspection: normal respiratory effort Auscultation: clear to auscultation bilaterally Cardio Rhythm: regular rhythm Heart sounds: S1 normal heart sound present and S2 normal heart sound present GI Inspection: Yes normal to inspection Palpation (GI): Soft to palpation Percussion: Yes normal to percussion Auscultation: normal bowel sounds Extrem Other: Diabetic foot exam no skin changes, there the hammertoe deformities in the right toes with pre ulcerative skin changes General: Yes no clubbing, cyanosis or edema Assessment & Plan Assessment & Plan (1) HTN (hypertension): Code(s): I10 - Essential (primary) hypertension Plan: Continue current medications (2) Diabetes mellitus: Comment: Intolerant to Jaime Frankel metformin Code(s): E11.9 - Type 2 diabetes mellitus without complications Plan: A1c is 7.5, continue current medications ADA diet increase physical activity follow-up in 4 months it is medically necessary for the patient to have diabetic foot wear because of hammertoe deformities and pre ulcer changes on the right foot (3) Osteoporosis: Comment: DEXA 01/2021 T score-3.0 unchanged from 11/2018 , Prolia since 2018, Tscore in femoral neck-3.9 03/24. Reclast infusion 05/24, side effect : body aches Code(s): M81.0 - Age-related osteoporosis without current pathological fracture Plan: Continue vitamin-D weight-bearing exercises repeat DEXA (4) Asthma: Comment: f/u Dr. Pagan . Controlled on Flovent and montelukast and albuterol p.r.n. Code(s): J45.909 - Unspecified asthma, uncomplicated Plan: Continue current medications follow-up with pulmonology (5) Recurrent UTI: Comment: Established with [facility] Code(s): N39.0 - Urinary tract infection, site not specified Plan: Patient was started Macrobid for UTI prophylaxis but the most recent urine culture showed resistant Enterobacter to nitrofurantoin. She will discuss it with her Urology Orders: Orders Comprehensive [place]. Panel Fast 4 Months E11.9 - Type 2 diabetes mellitus without complications, I10 - Essential (primary) hypertension Complete Blood Count Auto Diff 4 Months E11.9 - Type 2 diabetes mellitus without complications, I10 - Essential (primary) hypertension Lipid Panel 4 Months E11.9 - Type 2 diabetes mellitus without complications, I10 - Essential (primary) hypertension Hemoglobin A1c 4 Months E11.9 - Type 2 diabetes mellitus without complications, I10 - Essential (primary) hypertension Microalbumin, Random (w Creat) 4 Months E11.9 - Type 2 diabetes mellitus without complications, I10 - Essential (primary) hypertension UA w Microscopic 4 Months E11.9 - Type 2 diabetes mellitus without complications, I10 - Essential (primary) hypertension XR DEXA axial skeleton Today M81.0 - Age-related osteoporosis without current pathological fracture Medications: Discontinued dulaglutide (Trulicity) Discontinued Reason: Doctor's Order 1.5 mg (0.5 mL) subcut QWEEK 6 mL 3RF cefpodoxime must administer with a meal/food Discontinued Reason: Doctor's Order 200 mg PO Q12H 14 tabs 0RF Quality Reporting (2019) Depression/Bipolar (159/160/161/177) PHQ-9: Total score: 7 Coding Level of Care Code Medicare Subsequent (G0439) Diagnoses HTN (hypertension) I10 Diabetes mellitus E11.9 Osteoporosis M81.0 Asthma J45.909 Recurrent UTI N39.0 CPT Codes Advance Care Planning - Advance Care Planning discussion: On file, no changes ([id number]) Advance Care Planning - Time spent: 1-15 minutes, on File ([id number]) Advance Care Planning Advance Care Planning discussion: On file, no changes Forms completed: Health Care Proxy Time spent: 1-15 minutes, on File Did not discuss due to Cultural/Spiritual beliefs: Yes
--- OUTSIDE RECORDS SUMMARY | 2025-04-10 14:50 | XMS_ITS | Encounter Summary ---
Author Organization [facility] Address [address] [place] [address] Care Team Providers Care Seeing Eye Dog Teacher Name Role Phone Corrine Spangler MD Primary Care Provider [phone] Encounter Details Date Type Department Care Team (Late st Contact Info) Description 02/23/2025 Lab Requisition [facility] - Main Lab [address] [facility] [place] [address] Mamadou Schmid, EMIL [address] [place], [place] [id number] Urinary tract infection, site not specified Social [...] cloacae complex(A) [place] 02/25/2025 10:20 AM EDT [facility] ([facility]) [facility] Comment: This is an edited result. [...] complex Trimethoprim/Sulfamethoxazo le [place] <=20 ug/ml: Susceptible [facility] MICROBIOLOGY - GENERAL COREY MUNOZ Final Result [facility] ([facility]) [facility] [address] [place] [address], documented in this encounter Visit Diagnoses Diagnosis Urinary tract infection, site not specified documented in this encounter Care Teams Seeing Eye Dog Teacher Relationship Specialty Start Date End Date Corrine Spangler MD [address] [place] [address] PCP - General Internal Medicine 02/23/25 documented as of this encounter
--- OUTSIDE RECORDS SUMMARY | 2025-04-10 14:50 | XMS_ITS | Patient Health Record ---
Author Organization [facility] Address [address] [place] [address] Care Team Providers Care Cage Maker Machine Name Role Phone Corrine Spangler MD Primary Care Provider Reese Mancilla Unavailable [phone] Maritza Hazel Unavailable [phone] Allergies Allergen (clinical drug ingredient) Drug/Non Drug [...] Lab: Notes/Report: HEMOGLOBIN A1C % (HH) 6.5 HEMOGLOBIN A1C (GLYCOHEMOGLO BIN) Reviewed date:04/10/2025 11:46:11 AM Interpretation: Performing Lab: Notes/Report: HEMOGLOBIN A1C % (HH) 6.5 Reason For Referral No Information Medications Medication SIG (Take, Route, Frequency, Duration) Notes Start Date End Date Status Extra Depth Orthopedic Shoes, (1) Pair With (3) Pair Custom Heat Molded Multidensity Innersoles Dx: NIDDM/PVD(E11.51), Hammertoe Foot Deformity(M20.41,M20 .42), Preulcerative Skin Lesion(s)(L85.1) Wear Daily; Duration: 365 days 04/10/2025 Active Fish Oil 1360 MG 1 capsule Orally Once a day; Duration: 30 day(s) Not-Taking Prolia 60 MG/ML as directed Subcutaneous 2 TIMES YEARLY Not-Taking Montelukast Sodium 10 MG 1 tablet Orally Once a day Not-Taking Trulicity 3 MG/0.5ML as directed Subcutaneous Not-Taking [place] 3 Not-Taking Losartan Potassium 100 MG Orally Not-Taking Albuterol Active ProAir HFA PRN Not-Takin g Nitrofurantoin Macrocrystal 50 MG 2 capsules at bedtime with food or milk Orally Once a day Active aspirin 81 mg daily Not-Ta christian Ozempic Not-Taking Calcium 1 tab Oral; Duration: 14 days Not-Taking Fluticasone Propionate HFA 220 MCG/ACT Inhalation; Duration: 60 Days Active Vitamin E Active Trulicity 1.5 MG/0.5ML Subcutaneous; Duration: 84 Days Active Omeprazole 20 MG 1 capsule 30 minutes before morning meal Orally Once a day Active Probiotic - as directed Orally Active Methenamine Hippurate 1 GM 1 tablet Orally Twice a day Active Vitamin C Active Vitamin D 25 MCG (1000 UT) 1 tablet Orally Once a day; Duration: 30 day(s) Active Turmeric Curcumin 500 MG as directed Orally Active Vitamin B 12 100 MCG as directed Orally Active glipiZIDE XL 10 MG 1 tablets Orally Twice daily Active Magnesium 500 MG 1 tablet with a meal Orally Once a day; Duration: 30 day(s) Active dilTIAZem HCl 120 MG 2 tablets Orally Active carBAMazepine Not-Ta christian Flovent HFA PRN Active Januvia 100 MG Orally Not-T aking Immunizations Vaccine Route Administration Date Status Comme nts Influenza Unknown 04/27/2017 Administered Influenza Unknown 05/17/2018 Administered Influenza Unknown 03/22/2019 Administered Influenza Unknown 03/27/2020 Administered Influenza Unknown 04/13/2022 Administered Influenza Unknown 04/02/2023 Administered Influenza Unknown 05/02/2024 Administered Pneumococcal Unknown 04/13/2022 Administered COVID-19 Pfizer [...] Problem Acquired hammer toe of right foot (0274002088305 105) Other hammer toe(s) (acquired), right foot (M20.41) Active confirmed Response to treatment,I mprovement Problem Type 2 diabetes mellitus with peripheral angiopathy (765922073) Type 2 diabetes mellitus with diabetic peripheral angiopathy without gangrene (E11.51) Active confirmed Q7(A), Q8(2B), Q9(1B,2C) Problem Acquired hammer toe of left foot (2392350405964 103) Other hammer toe(s) (acquired), left foot (M20.42) Active confirmed Response to treatment,I mprovement Vital Signs Blood pressure diastolic 60 mm Hg 04/10/2025 Height 5 ft 1 in in 04/10/2025 Blood pressure systolic 120 mm Hg 04/10/2025 Weight 142 lbs 04/10/2025 BMI 26.83 kg/m2 04/10/2025 Procedures Procedure Date Ordered Date Performed Result Body Sit e 70850-KKLNOGC NAIL, 6 OR MORE 06/07/2024 N/A 72960-PTBE SKIN LESIONS, OVER 4 06/07/2024 N/A 82295-PWYNNAY NAIL, 6 OR MORE 08/22/2024 N/A 61938-HQBY SKIN LESIONS, OVER 4 08/22/2024 N/A 91810-BHHRZLO NAIL, 6 OR MORE 11/14/2024 N/A 34674-NFVC SKIN LESIONS, OVER 4 11/14/2024 N/A 75448-DTZGECH NAIL, 6 OR MORE 04/10/2025 N/A 09578-WLAY SKIN LESIONS, OVER 4 04/10/2025 N/A Encounters Encounter Location Date Provider Diagnosis [facility] [address] [place] [address] 06/07/2024 Maritza Smithaker Type 2 diabetes mellitus with diabetic peripheral angiopathy without gangrene E11.51 ; Tinea unguium B35.1 ; Pain in right toe(s) M79.674 and Pain in left toe(s) M79.[address] [address] 08/22/2024 Reese Garcia Type 2 diabetes mellitus with diabetic peripheral angiopathy without gangrene E11.51 ; Tinea unguium B35.1 ; Pain in right toe(s) M79.674 ; Pain in left toe(s) M79.675 ; Other hammer toe(s) (acquired), right foot M20.41 and Other hammer toe(s) (acquired), left foot M20.[address] [address] 11/14/2024 Reese Garcia Type 2 diabetes mellitus with diabetic peripheral angiopathy without gangrene E11.51 ; Tinea unguium B35.1 ; Pain in right toe(s) M79.674 and Pain in left toe(s) M79.[address] [address] 04/10/2025 Reese Garcia Type 2 diabetes mellitus with diabetic peripheral angiopathy without gangrene E11.51 ; Tinea unguium B35.1 ; Pain in right toe(s) M79.674 ; Pain in left toe(s) M79.675 ; Other hammer toe(s) (acquired), left foot M20.42 and Other hammer toe(s) (acquired), right foot M20.[address] [address] 04/10/2024 Reese Garcia [address] [address] 02/15/2025 Reese Garcia Assessments Encounter Date Diagnosis [...] E11.51) 11/14/2024 Tinea unguium (ICD-10 - B35.1) 04/10/2025 Type 2 diabetes mellitus with diabetic peripheral angiopathy without gangrene (ICD-10 - E11.51) Q7(A), Q8(2B), Q9(1B,2C) 11/14/2024 Pain in right toe(s) (ICD-10 - M79.674) 08/22/2024 Pain in right toe(s) (ICD-10 - M79.674) 06/07/2024 Pain in right toe(s) (ICD-10 - M79.674) 04/10/2025 Tinea unguium (ICD-10 - B35.1) 04/10/2025 Pain in right toe(s) (ICD-10 - M79.674) 06/07/2024 Pain in left toe(s) (ICD-10 - M79.675) 08/22/2024 Pain in left toe(s) (ICD-10 - M79.675) 11/14/2024 Pain in left toe(s) (ICD-10 - M79.675) 08/22/2024 Other hammer toe(s) (acquired), right foot (ICD-10 - M20.41) Response to treatment,Impro vement 04/10/2025 Pain in left toe(s) (ICD-10 - M79.675) 08/22/2024 Other hammer toe(s) (acquired), left foot (ICD-10 - M20.42) Response to treatment,Impro vement 04/10/2025 Other hammer toe(s) (acquired), left foot (ICD-10 - M20.42) 04/10/2025 Other hammer toe(s) (acquired), right foot (ICD-10 - M20.41) Patient Educated with: DIABETIC FOOT CARE INSTRUCTIONS.p df (DIABETIC FOOT CARE INSTRUCTIONS.p df) Plan Of Treatment Pending Test Test Name Order Date Hemoglobin A1c 09/03/2015 38024-ZVAHAVD NAIL, 6 OR MORE 12/06/2015 46479-IKJGNUA NAIL, 6 OR MORE 09/03/2015 45160-LEHEHUS NAIL, 6 OR MORE 03/10/2016 74724-GCFCARP NAIL, 6 OR MORE 06/09/2016 06194-VTBMNOC NAIL, 6 OR MORE 09/01/2016 38178-IEANDUJ NAIL, 6 OR MORE 11/24/2016 22790-CSDJXAY NAIL, 6 OR MORE 04/18/2021 87418-FKDZOEA NAIL, 6 OR MORE 07/04/2021 56850-WOHUXAS NAIL, 6 OR MORE 09/16/2021 87433-VQLFGPH NAIL, 6 OR MORE 02/16/2017 02659-EBZKHJP NAIL, 6 OR MORE 04/27/2017 26870-FCSVZZP NAIL, 6 OR MORE 07/20/2017 50237-GUUDMDQ NAIL, 6 OR MORE 09/28/2017 03652-NSOAJDS NAIL, 6 OR MORE 11/30/2017 93532-JBKQOBO NAIL, 6 OR MORE 02/15/2018 59162-LFROWSI NAIL, 6 OR MORE 05/10/2018 80170-LXXKULR NAIL, 6 OR MORE 08/19/2018 79458-WFPLTGT NAIL, 6 OR MORE 11/04/2018 61676-NYHGRMK NAIL, 6 OR MORE 01/24/2019 52188-YMDATTT NAIL, 6 OR MORE 06/13/2019 02344-LXZMSRV NAIL, 6 OR MORE 08/22/2019 32677-AJSERJA NAIL, 6 OR MORE 10/31/2019 90921-ZBEEBSE NAIL, 6 OR MORE 01/09/2020 66023-ZAXLVDI NAIL, 6 OR MORE 03/19/2020 13151-CAZUDFK NAIL, 6 OR MORE 06/21/2020 84147-WJNFUOF NAIL, 6 OR MORE 08/30/2020 91709-VTDZAQX NAIL, 6 OR MORE 11/05/2020 52472-AVTAKOF NAIL, 6 OR MORE 01/10/2021 39687-FUEHOEP NAIL, 6 OR MORE 11/25/2021 98745-UBCVFXD NAIL, 6 OR MORE 01/30/2022 57293-NSBUAIV NAIL, 6 OR MORE 04/14/2022 39194-QYPFAAH NAIL, 6 OR MORE 08/07/2022 77898-SIJYMVD NAIL, 6 OR MORE 10/16/2022 55379-AIUEXPB NAIL, 6 OR MORE 01/05/2023 03206-LNKZOUS NAIL, 6 OR MORE 03/16/2023 24560-LRDYUHA NAIL, 6 OR MORE 05/25/2023 73952-AQMORLX NAIL, 6 OR MORE 08/06/2023 52233-RUOZHNY NAIL, 6 OR MORE 10/19/2023 90089-PMWHWSS NAIL, 6 OR MORE 03/21/2024 79109-WUJNCUO NAIL, 6 OR MORE 06/07/2024 03290-MBXQIIX NAIL, 6 OR MORE 08/22/2024 77525-CPBPLXR NAIL, 6 OR MORE 11/14/2024 54192-YCXRBEU NAIL, 6 OR MORE 04/10/2025 71948-Gsiqsqjr Plate 01/10/2021 75949-Tupqyvmb Plate 11/24/2016 08861-Mzqhuwqr Plate 09/01/2016 79775-Yhipfedn Plate 06/09/2016 77876-Dxyslueb Plate 03/10/2016 16284-Vjdbcwmi Plate 09/03/2015 52099-Taludsvp Plate 12/06/2015 45634-HJIH SKIN LESIONS, OVER 4 04/10/20 25 41435-QWNM SKIN LESIONS, OVER 4 11/15/19 25 14675-LLTI SKIN LESIONS, OVER 4 08/22/19 25 28454-VERX SKIN LESIONS, OVER 4 06/07/20 24 12386-WLEI SKIN LESIONS, OVER 4 10/19/19 24 84644-EMHG SKIN LESIONS, OVER 4 03/21/20 24 04936-RVVI SKIN LESIONS, OVER 4 08/06/19 24 58921-SSUH SKIN LESIONS, OVER 4 05/25/20 23 77015-ZTVX SKIN LESIONS, OVER 4 03/16/20 23 07187-XOXG SKIN LESIONS, 2 TO 4 01/06/20 23 54642-DASE SKIN LESIONS, 2 TO 4 10/17/19 23 40970-ZAOR SKIN LESIONS, 2 TO 4 08/07/19 92192-JYTC SKIN LESIONS, 2 TO 4 04/14/20 66703-KOST SKIN LESIONS, 2 TO 4 01/31/20 04639-JWKV SKIN LESIONS, 2 TO 4 11/26/19 21849-KGNL SKIN LESIONS, 2 TO 4 09/16/19 78292-BPFR SKIN LESIONS, 2 TO 4 07/04/20 21 Next Appt Details Provider Name:Reese Garcia , 07/24/2025 02:45:00 PM, [address], [place], [address], Insurance Providers Payer Name Payer Address Payer Phone Subscriber Number Group Number Insured Name Patient Relationship to Insured Coverage Start Date Coverage End Date Medicare National Govt [employer] [address] [place] [address] [id number] PelGenie Castorena Self - patient is the insured [employer] [place] [address] [place] [phone] [id number] JamesGenie Castorena Self - patient is the insured Medical [...] Date(Month/[place] [facility] [place] [facility] [place]- not tested- said asthma and allergies 10/24/2019 [facility] [place]- lesion found in samuel ngs 09/13/2017 pneumonia 11/24-11/26/15
--- OUTSIDE RECORDS SUMMARY | 2025-04-10 14:50 | XMS_ITS | Clinical Summary ---
Author Organization [address] [facility] Address [address] [place] [address] Phone Care Team Providers Care Wiring Mechanic Name Role Phone Corrine Spangler MD Primary Care Provider [phone] Encounters Date Type Department Care Team Description 02/23/2025 Lab Requisition [facility] [address] [place] [address] Mamadou Schmid PA Urinary tract [...] cloacae complex(A) [place] 02/25/2025 10:20 AM EDT [facility] Comment: This is [...] COREY MUNOZ Final Result [facility] ([facility]) [facility] [address] [place] [address], [place] [phone] from Last 3 Months Insurance MEDICARE [facility] Care Teams Wiring Mechanic Relationship Specialty Start Date End Date Corrine Spangler MD [address] [place] [address] PCP - General Internal Medicine 02/23/25
--- OUTSIDE RECORDS SUMMARY | 2025-04-10 14:50 | XMS_ITS | Patient Health Record ---
Author Organization [facility] Address [address] [place] [address] Care Team Providers Care Linotype Machinist Apprentice Name Role Phone Corrine Spangler MD Primary Care Provider Nishant Amaro [phone] Allergies Allergen (clinical drug ingredient) Drug/Non Drug [...] Problem Status W/U Status Risk Notes Problem 83848232 Pancreatic cyst (K86.2) Active confirmed Problem 73992781 Constipation, unspecified constipation type (K59.00) Active confirmed Problem 101109917 Abdominal pain, left lower quadrant (R10.32) Active confirmed Problem 27453146 Irritable bowel syndrome, unspecified type (K58.9) Active confirmed Problem 56491361 Hypertension, unspecified type (I10) Active confirmed Plan Of Treatment No Information Insurance Providers Payer Name Payer Address Payer Phone Subscriber Number Group Number Insured Name Patient Relationship to Insured Coverage Start Date Coverage End Date MEDICARE OF [place] [address] [place] [address] [id number] HOOD CASTILLO Self - patient is the insured [employer] [facility] [address] [place] [address] [phone] [id number] HOOD CASTILLO Self - patient is the insured Medical (General) History Medical History History ICD Code Chronic diarrhea/IBS-colonos copy biopsies negative for colitis in 1994 and labs neg. for celiac disease in 2009 Colon polyps-tubular adenoma s removed in 1999 and 2009-colonoscopy was negative in 2004 except for AVM's NIDDM Hyperlipidemia Hypertension Breast flkrhs-5199-tsilo lumpectomy with XRT UTI's Denies AL,CVA,renal disease Bronchitis Pancreatic cysts seen on MRI in 09/[address] scan in November of 2022 Asthma Surgical History Surgery Date(Month/Year) Cholecystectomy JOANA Rectovaginal fistula repair in 1994 Bladder suspension Veins in LE's Breast cancer as above
== END 2025-04-10 14:03 | disposition home or self-care (01) ==
LOC: HO.HMCC 12:29
PROVIDERS: PCP Internal Medicine; Visit Provider Internal Medicine
DX: Z00.00 Encounter for general adult medical examination without abnormal findings (principal); I10 Essential (primary) hypertension; E11.9 Type 2 diabetes mellitus without complications; M81.0 Age-related osteoporosis without current pathological fracture; J45.909 Unspecified asthma, uncomplicated; N39.0 Urinary tract infection, site not specified

== ENCOUNTER 2025-04-24 10:08 | Outpatient (AMB) | payer MEDICARE, OTHER, SELFPAY ==
--- OUTSIDE RECORDS SUMMARY | 2024-07-04 05:30 | XMS_ITS ---
Author Organization [facility] Address [address] [place] [address] Care Team Providers Care Low Vision Therapist Name Role Phone Corrine Spangler MD Primary Care Provider Reese Mancilla Unavailable [phone] REASON FOR VISIT r/s for sooner apt Encounters Encounter Location Date Provider Diagnosis [address] [address] 07/04/2024 Reese Garcia Plan Of Treatment Next Appt Details Provider Name:Reese Garcia , 07/24/2025 02:45:00 PM, [address] [place] [address], [phone], Progress Notes * Genie RAO EDOB:1 09/27/1939 (84 yo F)Acc No.[id number]:07/04/2024 Progress Note Patient: Genie BARRAZA Provider: Hermelinda Garcia DPM :1940 A ge:83 Y S ex:Female Date:07/04/2024 Address:[facility] [id number] Pcp:Corrine Spangler MD Subjective: * Chief Complaints: [...] Date: 09/04/2023 Generated for Mary Sarah on: 0 04/24/2025 12:19 PM EDT
--- OUTSIDE RECORDS SUMMARY | 2025-02-16 09:45 | XMS_ITS ---
Author Organization [facility] Address [address] [place] [address] Care Team Providers Care Metal Framer Name Role Phone Corrine Spangler MD Primary Care Provider Reese Mancilla Unavailable [phone] Allergies Allergen (clinical drug ingredient) Drug/Non Drug [...] MG 2 tablets Orally Active Ozempic Active [place] 3 Active Encounters Encounter Location Date Provider Diagnosis [facility] [address] [address] 02/16/2025 Reese Garcia Plan Of Treatment Next Appt Details Provider Name:Reese Garcia , 07/24/2025 02:45:00 PM, [address] [place] [address], [address], Progress Notes * Genie RAO EDOB:1 09/27/1939 (84 yo F)Acc No.[id number]:02/16/2025 Progress Note Patient: Nilsa Genie CHANG Provider: Raquel Garcia DPM :1940 A ge:84 Y S ex:Female Date:02/16/2025 Address:[address] [place], [place] [id number] Pcp:Corrine Spangler MD Subjective: * Chief Complaints: * * Medical History: A rthritis, Asthma, Back,Hip,and Knee pain, Cancer, Cataracts, Diabetes mellitus type 2 , Gall bladder problems, High blood pressure, Polio, Chronic sinusitis, Measles, Mumps, Chicken pox, Transfusions, Reflux. * Medications: T kota Stuart , Taking Girard 3 , Taking Albuterol , Taking dilTIAZem [...] Date: 02/16/2025 Generated for Mary quezada/Caridad on: 04/24/2025 12:19 PM EDT
--- NOTE | 2025-04-24 10:14 | A.OFFPC_ITS ---
Vital Signs 04/24/25 10:31 Height 5 ft 2 in Weight 143 lb BMI 26.2 BP 120/66 Blood Pressure Location Lt brachial Position Sitting Respiration 16 Pulse 77 Pulse Source Pulse Oximeter Temp 98.3 F Temp Source Oral Pulse Oximetry (%) 97 Oxygen Delivery Method Room Air Intake Visit Reasons: Hospital follow up Intake Note: Pt is here today for Hospital follow up visit. Allergies alendronate sodium (From FOSAMAX) Allergy (Intermediate, Verified 04/24/25 10 :14) DIARRHEA ciprofloxacin (CIPROFLOXACIN) Allergy (Intermediate, Verified 04/24/25 10:14) HEADACHE,SOB hydrochlorothiazide (HYDROCHLOROTHIAZIDE) Allergy (Intermediate, Verified 04/24/25 10:14) HEADACHE,DIZZINESS, Gi upset levofloxacin (From LEVAQUIN) Allergy (Intermediate, Verified 04/24/25 10:14) HEADACHE,SOB metformin (METFORMIN) Allergy (Intermediate, Verified 04/24/25 10:14) DIARRHEA, Gi upset pravastatin (PRAVASTATIN) Allergy (Intermediate, Verified 04/24/25 10:14) HEADACHE,SOB, Gi upset simvastatin (SIMVASTATIN) Allergy (Intermediate, Verified 04/24/25 10:14) HEADACHE,SOB, Gi upset canagliflozin (From INVOKANA) Adverse Reaction (Intermediate, Verified 04/24/25 10:14) DIARRHEA dapagliflozin (From FARXIGA) Adverse Reaction (Intermediate, Verified 04/24/25 10:14) DIARRHEA dulaglutide (From Trulicity) Adverse Reaction (Intermediate, Verified 04/10/25 12:51) skin bumps mannitol (From Reclast) Adverse Reaction (Verified 04/10/25 12:51) bone pain water for injection,sterile (From Reclast) Adverse Reaction (Verified 04/10/25 12:51) bone pain zoledronic acid (From Reclast) Adverse Reaction (Verified 04/10/25 12:51) bone pain From PERCOCET Adverse Reaction (Mild, Uncoded 04/10/25 12:51) NAUSEA Medication List - Last Reconciled 04/24/25 by Corrine Spangler MD acetaminophen (Tylenol) 325 mg PO QID PRN albuterol sulfate 90 mcg/actuation inhalation albuterol sulfate mg inhalation BID ascorbic acid (vitamin C) mg PO blood sugar diagnostic One touch test strips use 1 strip to test blood sugar once daily blood sugar diagnostic (OneTouch Ultra Test strips) USE DIRECTED TO TEST SUGARS DAILY cholecalciferol (vitamin D3) 25 mcg PO DAILY cranberry extract (Theracran) 650 mg PO DAILY diltiazem HCl CD 240 mg PO DAILY diphenhydramine HCl (NightTime Sleep Aid (diphenhydramine)) 25 mg PO BEDTIME PRN estradiol 0.01%(0.1mg/gram) pea size to urethra daily; fluticasone propionate 220 mcg/actuation 1 inh inhalation BID glipizide ER 10 mg PO BID glycerin-min oil-polycarbophil (Replens vaginal gel) ea vaginal lactobacillus combination no.9 (Adult 50 Plus Probiotic) PO DAILY lidocaine 5% (Lidoderm) 1 patch topical DAILY magnesium 250 mg PO DAILY mecobalamin (vitamin B12) 1,000 mcg sublingual DAILY naproxen 500 mg PO Q12H PRN 7 days omega-3 fatty acids-fish oil 360-1,200 mg (Fish Oil) 1 cap PO DAILY polaprezinc (zinc carnosine) PO Trulicity (dulaglutide) 3 mg (0.5 mL) subcut QWEEK NS Tobacco use date assessed: 04/24/25 Fall risk assessment: No Falls in past year Last assessed Fall Risk: 04/24/25 Dental Screening Dental Screen Date: 08/23/24 [facility] Hospital follow up HPI Details Patient presents for the follow-up. She had cystoscopy last week by Dr. Ferrell and developed gross hematuria and dysuria following the procedure. Patient went to the emergency room at [facility] was given dose of gentamicin. She is feeling better but still reports symptoms of burning sensation while urinating. She denies fever chills nausea vomiting abdominal pain or gross hematuria. Patient reports higher blood glucose readings for the last 2 week but has not been compliant with ADA diet. [facility] Medical History Annual physical exam Asthma Diabetes mellitus HTN (hypertension) Diastolic dysfunction Family history of total abdominal hysterectomy and bilateral salpingo- oophorectomy (JOANA-BSO) Surgical History Hx of bilateral cataract extraction History of bladder suspension procedure History of lumpectomy of right breast History of trigger finger History of urethrocutaneous fistula Hx of hysterectomy Hx of section Hx of appendectomy Family History Father CAD (coronary artery disease) Mother Parkinson disease Mental health disorder Brother Diabetes Melanoma Social History Housing: House Alcohol intake: never Patient Tobacco Use Status: Never used Tobacco e-Cigarette/Vaping Use: Never Used Second Hand Smoke Exposure: No service: No Current occupational status: retired 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 1. Little interest or pleasure in doing things: not at all 2. Feeling down, depressed, or hopeless: not at all 3. Trouble falling or staying asleep, or sleeping too much: several days 4. Feeling tired or having little energy: several days 5. Poor appetite or overeating: not at all 6. Feeling bad about yourself - or that you are a failure or have let yourself or your family down: not at all 7. Trouble concentrating on things, such as reading the newspaper or watching television: not at all 8. Moving or speaking so slowly that other people could have noticed. Or the opposite - being so fidgety or restless that you have been moving around a lot more than usual: not at all 9. Thoughts that you would be better off or of hurting yourself in some way: not at all Total score: 2 Depression Screening Interpretation: Negative Depression Screening Done: Yes Source: Developed by Drs. Nishant Reyes, Bhavani Lee, Samy Voss and colleagues, with an educational kai from [employer]. Thrive Questionnaire Date Thrive assessed: 04/24/25 I am a: Patient What is your living situation today?: I have a steady place to live Within the past 12 months, did the food you bought not last and you didn't have the money to get more?: Never true Within the past 12 months, did you worry whether your food would run out before you got money to buy more?: Never true Do you have trouble paying for medicines?: No Do you have trouble getting transportation to medical appointments?: No Do you have trouble paying your heating and electricity bill?: No Do you have trouble taking care of your child, family member or friend?: No Do you have trouble with day-to-day activities such as bathing, preparing meals, shopping, managing finances, etc.?: No Are you currently unemployed and looking for a job?: No Are you interested in more education?: No Please select the resources that you would like help with: Food, Paying for medicine and Utilities Currently or been in a relationship where the following occur: No concerns reported THRIVE Score: 0 AUDIT C Alcohol Use Questionnaire (AUDIT-C) 1. How often do you have a drink containing alcohol?: Monthly or less 2. How many drinks containing alcohol do you have on a typical day when you are drinking?: 1 or 2 3. How often do you have six or more drinks on one occasion?: Never Total Score: 1 EDNA-7 AMB Questionnaire EDNA-7 Date EDNA - 7 assessed: 08/23/24 Feeling nervous, anxious, or on edge: 0 = Not at all Not being able to stop or control worryin = Not at all Worrying too much about different things: 0 = Not at all Trouble relaxin = Not at all Being so restless that it is hard to sit still: 0 = Not at all Becoming easily annoyed or irritable: 0 = Not at all Feeling afraid as if something awful might happen: 0 = Not at all Total EDNA-7 score (0-4 normal; 5-9 mild; 10-14 moderate; 15-21 severe): 0 Source: Developed by Drs. Nishant Reyes, Bhavani Lee, Samy Voss and colleagues, with an educational kai from [employer]. Review of Systems Const All systems reviewed & are unremarkable except as noted in HPI and below ENT Reports no additional complaints Card Reports no additional complaints Resp Reports no additional complaints GI Reports no additional complaints Reports no additional complaints Physical exam (Primary Care) Vital Signs: Last Vital Signs Temp 98.3 F 04/24/25 10:31 Pulse 77 04/24/25 10:31 Resp 16 04/24/25 10:31 BP 120/66 04/24/25 10:31 Pulse Ox 97 04/24/25 10:31 Oxygen Delivery Method Room Air 04/24/25 10:31 BMI result Body Mass Index 26.2 Tobacco/Smoking Status: Tobacco use Status Tobacco use date assessed 04/24/25 04/24/25 10:40 Patient Tobacco Use Status Never used Tobacco 04/24/25 10:14 e-Cigarette/Vaping Use Never Used 04/24/25 10:14 PHQ-9: PHQ-9 Score PHQ-9: Total score 2 04/24/25 10:40 Depression Screening Interpretation: Negative Thrive Assessment: Date of Thrive Assessment Date Thrive assessed 04/24/25 04/24/25 10:40 Currently or been in a relationship where the following occur: No concerns reported Const General: no acute distress HENMT Head: Yes normal to inspection Resp Effort & Inspection: normal respiratory effort Auscultation: clear to auscultation bilaterally Cardio Rhythm: regular rhythm Heart sounds: S1 normal heart sound present and S2 normal heart sound present GI Inspection: Yes normal to inspection Palpation (GI): Soft to palpation Percussion: Yes normal to percussion Auscultation: normal bowel sounds Coding Level of Care Code Est Pt Level 4 (89631) Diagnoses Recurrent UTI N39.0 HTN (hypertension) I10 Diabetes mellitus E11.9 Assessment & Plan Assessment & Plan (1) Recurrent UTI: Comment: Established with [facility] Code(s): N39.0 - Urinary tract infection, site not specified Category: Surgical Plan: Patient will follow-up with urology. Check UA and culture today. Patient was prescribed estradiol vaginal cream to prevent urinary tract infections and atrophic vaginitis. She will discuss using the cream with her urologist (2) HTN (hypertension): Code(s): I10 - Essential (primary) hypertension Category: Medical Plan: Continue diltiazem (3) Diabetes mellitus: Comment: Intolerant to Jardiance, Farxiga metformin Code(s): E11.9 - Type 2 diabetes mellitus without complications Category: Medical Plan: ADA diet discussed with the patient continue glipizide and Trulicity Orders: Orders UA w Microscopic Today N39.0 - Urinary tract infection, site not specified Urine Culture Today N39.0 - Urinary tract infection, site not specified Medications: Refilled estradiol 0.01%(0.1mg/gram) pea size to urethra daily; 42.5 grams 3RF estradiol 0.01%(0.1mg/gram) pea size to urethra daily; 42.5 grams 3RF
[2025-04-24 10:31] VITALS: BP 120/66; PULSE 77; RESP 16; TEMP 36.8; O2SAT 97; BMI 26.2
--- OUTSIDE RECORDS SUMMARY | 2025-04-24 12:19 | XMS_ITS | Patient Health Record ---
Author Organization [facility] Address [address] [address] Care Team Providers Care Safety Admin Assistant Name Role Phone Corrine Spangler MD Primary Care Provider Reese Mancilla Unavailable [phone] Maritza Hazel Unavailable [phone] Allergies Allergen (clinical drug ingredient) Drug/Non Drug [...] Trulicity 3 MG/0.5ML as directed Subcutaneous Not-Taking [place] 3 Not-Taking Losartan Potassium 100 MG Orally [...] Problem Acquired hammer toe of right foot (7068547291880 105) Other hammer toe(s) (acquired), right foot (M20.41) Active confirmed Response to treatment,I mprovement Problem Type 2 diabetes mellitus with peripheral angiopathy (408470045) Type 2 diabetes mellitus with diabetic peripheral angiopathy without gangrene (E11.51) Active confirmed Q7(A), Q8(2B), Q9(1B,2C) Problem Acquired hammer toe of left foot (0798212318220 103) Other hammer toe(s) (acquired), left foot (M20.42) Active confirmed Response to treatment,I mprovement Vital Signs Blood pressure diastolic 60 mm Hg 04/10/2025 Height 5 ft 1 in in 04/10/2025 Blood pressure systolic 120 mm Hg 04/10/2025 Weight 142 lbs 04/10/2025 BMI 26.83 kg/m2 04/10/2025 Procedures Procedure Date Ordered Date Performed Result Body Sit e 59026-FWBTLRU NAIL, 6 OR MORE 06/07/2024 N/A 88334-IKXP SKIN LESIONS, OVER 4 06/07/2024 N/A 27119-BAWWKRM NAIL, 6 OR MORE 08/22/2024 N/A 20960-JVQW SKIN LESIONS, OVER 4 08/22/2024 N/A 39882-SNJHBAK NAIL, 6 OR MORE 11/14/2024 N/A 09517-KWNC SKIN LESIONS, OVER 4 11/14/2024 N/A 48709-PFSYODR NAIL, 6 OR MORE 04/10/2025 N/A 98555-PECS SKIN LESIONS, OVER 4 04/10/2025 N/A Encounters Encounter Location Date Provider Diagnosis [facility] [address] [place] [address] 06/07/2024 Maritza Smithaker Type 2 diabetes mellitus with diabetic peripheral angiopathy without gangrene E11.51 ; Tinea unguium B35.1 ; Pain in right toe(s) M79.674 and Pain in left toe(s) M79.[address] [address] 08/22/2024 Reese Garcia Type 2 diabetes mellitus with diabetic peripheral angiopathy without gangrene E11.51 ; Tinea unguium B35.1 ; Pain in right toe(s) M79.674 ; Pain in left toe(s) M79.675 ; Other hammer toe(s) (acquired), right foot M20.41 and Other hammer toe(s) (acquired), left foot M20.[address] [address] 11/14/2024 Reese Garcia Type 2 diabetes mellitus with diabetic peripheral angiopathy without gangrene E11.51 ; Tinea unguium B35.1 ; Pain in right toe(s) M79.674 and Pain in left toe(s) M79.[address] [address] 04/10/2025 Reese Garcia Type 2 diabetes mellitus with diabetic peripheral angiopathy without gangrene E11.51 ; Tinea unguium B35.1 ; Pain in right toe(s) M79.674 ; Pain in left toe(s) M79.675 ; Other hammer toe(s) (acquired), left foot M20.42 and Other hammer toe(s) (acquired), right foot M20.[address] [address] 02/15/2025 Reese Garcia Assessments Encounter Date Diagnosis [...] Test Name Order Date Hemoglobin A1c 09/03/2015 04258-VORGHOQ NAIL, 6 OR MORE 12/06/2015 43708-GYKYPPW NAIL, 6 OR MORE 09/03/2015 77464-KENPTXW NAIL, 6 OR MORE 03/10/2016 15698-VBRUNNC NAIL, 6 OR MORE 06/09/2016 11262-OPHXZAA NAIL, 6 OR MORE 09/01/2016 80975-ERIDGHG NAIL, 6 OR MORE 11/24/2016 97248-IIGNUYB NAIL, 6 OR MORE 04/18/2021 68059-FVGIYUF NAIL, 6 OR MORE 07/04/2021 07478-FPFDOOL NAIL, 6 OR MORE 09/16/2021 20034-AXIHWWD NAIL, 6 OR MORE 02/16/2017 47501-YPSJTDX NAIL, 6 OR MORE 04/27/2017 21597-WPUKBSW NAIL, 6 OR MORE 07/20/2017 57991-XJVVSWO NAIL, 6 OR MORE 09/28/2017 33975-BXFHIWZ NAIL, 6 OR MORE 11/30/2017 68929-NDYCISR NAIL, 6 OR MORE 02/15/2018 36859-GNDYDTJ NAIL, 6 OR MORE 05/10/2018 76596-YHDVDDS NAIL, 6 OR MORE 08/19/2018 77568-NKZINHA NAIL, 6 OR MORE 11/04/2018 26411-HGVTANO NAIL, 6 OR MORE 01/24/2019 95523-IBQYCNR NAIL, 6 OR MORE 06/13/2019 94460-MGEPNYY NAIL, 6 OR MORE 08/22/2019 32519-QRWZBAI NAIL, 6 OR MORE 10/31/2019 56486-ZPBTCDR NAIL, 6 OR MORE 01/09/2020 22183-PYFTBRA NAIL, 6 OR MORE 03/19/2020 50506-SCSRVRP NAIL, 6 OR MORE 06/21/2020 95775-APRLNOX NAIL, 6 OR MORE 08/30/2020 66028-QZQRDTY NAIL, 6 OR MORE 11/05/2020 45855-NRFQKSX NAIL, 6 OR MORE 01/10/2021 33543-VQPEZUC NAIL, 6 OR MORE 11/25/2021 78716-QMCITUC NAIL, 6 OR MORE 01/30/2022 85425-ZXKAAAN NAIL, 6 OR MORE 04/14/2022 50960-EBAGLWH NAIL, 6 OR MORE 08/07/2022 22675-CSHTMDJ NAIL, 6 OR MORE 10/16/2022 07537-JPGIBWG NAIL, 6 OR MORE 01/05/2023 23444-ZZEJZOH NAIL, 6 OR MORE 03/16/2023 35886-CUJEPTO NAIL, 6 OR MORE 05/25/2023 55421-DCNVHEG NAIL, 6 OR MORE 08/06/2023 15938-QECQAPB NAIL, 6 OR MORE 10/19/2023 47504-SJFCUZT NAIL, 6 OR MORE 03/21/2024 05367-UFAIEEL NAIL, 6 OR MORE 06/07/2024 42858-CKYBJHT NAIL, 6 OR MORE 08/22/2024 61338-WVWZADR NAIL, 6 OR MORE 11/14/2024 54950-YUZRBJP NAIL, 6 OR MORE 04/10/2025 84823-Avyzsmsj Plate 01/10/2021 13779-Iibxugos Plate 11/24/2016 36719-Jjyxocpq Plate 09/01/2016 26942-Rulrpdxm Plate 06/09/2016 73400-Tlensenu Plate 03/10/2016 28417-Vwsymljd Plate 09/03/2015 56492-Roeizfqi Plate 12/06/2015 71595-VISM SKIN LESIONS, OVER 4 04/10/20 25 25328-VLIY SKIN LESIONS, OVER 4 11/15/19 25 39936-RXUG SKIN LESIONS, OVER 4 08/22/19 25 09119-HAEI SKIN LESIONS, OVER 4 06/07/20 24 21302-SDDZ SKIN LESIONS, OVER 4 10/19/19 24 72494-GQYT SKIN LESIONS, OVER 4 03/21/20 24 25898-JYKE SKIN LESIONS, OVER 4 08/06/19 24 54916-FMVD SKIN LESIONS, OVER 4 05/25/20 23 17034-GAKM SKIN LESIONS, OVER 4 03/16/20 23 94935-NPPK SKIN LESIONS, 2 TO 4 01/06/20 23 22443-VKKW SKIN LESIONS, 2 TO 4 10/17/19 64544-RWJQ SKIN LESIONS, 2 TO 4 08/07/19 97194-MEAU SKIN LESIONS, 2 TO 4 04/14/20 14289-YAEV SKIN LESIONS, 2 TO 4 01/31/20 84626-FMFU SKIN LESIONS, 2 TO 4 11/26/19 85097-HJKT SKIN LESIONS, 2 TO 4 09/16/19 62001-LAGM SKIN LESIONS, 2 TO 4 07/04/20 Next Appt Details Provider Name:Reese Garcia , 07/24/2025 02:45:00 PM, [address], [place], [address], Insurance Providers Payer Name Payer Address Payer Phone Subscriber Number Group Number Insured Name Patient Relationship to Insured Coverage Start Date Coverage End Date Medicare National [facility] [employer] [address] [place] [address] [id number] Prince rexGenie Self - patient is the insured [employer] [address] [place] [phone] [id number] Genie Escalera Self - patient is the insured Medical (General) History Medical History History ICD Code Arthritis Asthma Back,Hip,and Knee pain Cancer Cataracts Diabetes mellitus type 2 Gall bladder problems High blood pressure Polio chronic sinusitis Measles Mumps Chicken pox Transfusions Reflux Surgical History Surgery Date(Month/Year) gall bladder 1967 breast surgery hysterectomy bladder suspension vein surgery (LT leg) right carpal tunnel [facility] 05/04/2018 hand surgery- trigger finger right 2020 sx underarm 12/15/21 Hospitalization History Reason Date(Month/Year) [facility]- back ache 03/26 [facility] ER-Coronavirus symptoms- not tested- said asthma and allergies 10/24/2019 [facility]- ER for coughing- lesion found in samuel ngs 09/13/2017 pneumonia 11/24-11/26/15
--- OUTSIDE RECORDS SUMMARY | 2025-04-24 12:19 | XMS_ITS | Clinical Summary ---
Author Organization [address] [facility] Address [address] [place] [address] Phone Care Team Providers Care Yard Specialist Name Role Phone Corrine Spangler MD Primary Care Provider [phone] Allergies Active Allergy Reactions Criticality Noted Date Comments Ciprofloxacin 04/18/2025 Hydrochlorothiazide 04/18/2025 Levofloxacin 04/18/2025 Lidocaine 04/18/2025 Metformin 04/18/2025 Pravastatin 04/18/2025 Simvastatin 04/18/2025 Sulfa (Sulfonamide Antibiotics) GI intolerance 04/18/2025 Medications sulfamethoxazol e-trimethoprim (BACTRIM DS,SEPTRA DS) 800-160 mg per tablet Take 1 tablet by mouth 2 (two) times a day for 7 days. 14 each 04/18/20 Discontinued Encounters Date Type Department Care Team Description 04/18/2025 7:31 AM EDT - 04/18/2025 4:50 PM EDT Emergency [facility] Emergency [address] [place] [address] Dolores Tong DO Cystitis (Primary Dx) Discharge Disposition: Home or Self Care 02/23/2025 Lab Requisition [facility] - Main Lab [address] [facility] [place] [address] Mamadou Schmid PA Urinary tract infection, site not specified from Last 3 Months Social History Tobacco Use Types Packs/Day Years Used Date Smoking Tobacco: Never Assessed Comments Unknown Sex and Gender Information Value Date Recorded Sex Assigned at Not on file Legal Sex Female 1:28 PM EDT Gender Identity Not on file Sexual Orientation Not on file Last Filed Vital Signs Vital Sign Reading Time Taken Comments Blood Pressure 148/78 04/18/2025 12:23 PM EDT Pulse 88 04/18/2025 12:23 PM EDT Temperature 36.4 C (97.5 F) 04/18/2025 7:23 AM EDT Respiratory Rate 18 04/18/2025 12:23 PM EDT Oxygen Saturation 98% 04/18/2025 12:23 PM EDT Inhaled Oxygen Concentration - - Weight 64.4 kg (142 lb) 04/18/2025 7:23 AM EDT Height 154.9 cm (5' 1 ) 04/18/2025 7:23 AM EDT Body Mass Index 26.83 04/18/2025 7:23 AM EDT Plan of Treatment Health Maintenance Due Date Last Done Comments RSV Immunization Adult Patients (1 - 1-dose 75+ series) 2013 Zoster Vaccines (2 of 2) 2018 06/01/2018, 11/30 Depression Screening 08/02/2024 Cholesterol Screening (Lipid Panel) 02/24/2025 Falls Risk Assessment 02/24/2025 Medicare Annual Wellness Visit 02/24/2025 Osteoporosis Screening (Bone Density Screening) 02/24/2025 Social Influencers of Health Screening 02/24/2025 COVID-19 Vaccine ( season) 2025 05/05/2023, 05/25/2022, 10/30/2021, Additional history exists Influenza Vaccine (#1) 2025 9, 05/14/2018, 04/27/2017, Additional history exists Hypertension/CHF/CAD Annual BMP Blood Test 04/18/2026 04/18/2025 DTaP,Tdap,and Td Vaccines (2 - Td or Tdap) 03/10/2027 03/10/2017 Pneumococcal Vaccine: 50+ Years Completed 09/08/2022 HIB Vaccines Aged Out No longer eligi [...] to complete this topic RSV Immunization Patients Under 20 months Aged Out No longer eligible based on patient's age to complete this topic Varicella Vaccines Aged Out No longer eligible based on patient's age to complete this topic Procedures Procedure Name Priority Date/Time Associated Diagnosis Comments LEÓN URINE CULTURE TUBE STAT 04/18/2025 8:33 AM EDT URINALYSIS WITH REFLEX MICROSCOPIC AND CULTURE STAT 04/18/2025 8:33 AM EDT URINALYSIS WITH REFLEX MICROSCOPIC AND CULTURE STAT 04/18/2025 8:33 AM EDT CULTURE URINE STAT 04/18/2025 8:33 AM EDT CBC WITH AUTO DIFFERENTIAL STAT 04/18/2025 8:05 AM EDT TYPE AND SCREEN STAT 04/18/2025 8:05 AM EDT BASIC METABOLIC PANEL STAT 04/18/2025 8:05 AM EDT CBC AND DIFFERENTIAL STAT 04/18/2025 8:05 AM EDT CULTURE URINE Routine 02/23/2025 11:40 AM EDT Urinary tract infection, site not specified from Last 3 Months Results * (ABNORMAL) Urinalysis with reflex microscopic and culture (04/18/2025 8:33 AM EDT) Specific [place] Urine 1.020 1.003 - 1.030 LAB URINALYSIS - AUTOMATED METHOD 04/18/2025 9:31 AM EDT [facility] pH, Urine 5.5 5.0 - 8.0 pH LAB URINALYSIS - AUTOMATED METHOD 04/18/2025 9:31 AM [facility] Leukocytes, Urine Large(A) Negative LAB URINALYSIS - AUTOMATED METHOD 04/18/2025 9:31 AM [facility] Nitrite, Urine Positive(A) Negative LAB URINALYSIS - AUTOMATED METHOD 04/18/2025 9:31 AM [facility] Protein, Urine 100(A) <=Trace mg/dL LAB URINALYSIS - AUTOMATED METHOD 04/18/2025 9:31 AM [facility] Glucose, Urine 100(A) Negative mg/dL LAB URINALYSIS - AUTOMATED METHOD 04/18/2025 9:31 AM [facility] Ketones, Urine Negative Negative mg/dL LAB URINALYSIS - AUTOMATED METHOD 04/18/2025 9:31 AM [facility] Urobilinogen , Urine 0.2 0.2 - 1.0 mg/dL LAB URINALYSIS - AUTOMATED METHOD 04/18/2025 9:31 AM [facility] Bilirubin, Urine Negative Negative LAB URINALYSIS - AUTOMATED METHOD 04/18/2025 9:31 AM [facility] Blood, Urine Moderate(A) Negative LAB URINALYSIS - AUTOMATED METHOD 04/18/2025 9:31 AM [facility] RBC, Urine 44.8(H) 0 - 4 /HPF LAB URINALYSIS - AUTOMATED METHOD 04/18/2025 9:31 AM [facility] WBC, Urine 1,526.1(H) 0 - 4 /HPF LAB URINALYSIS - AUTOMATED METHOD 04/18/2025 9:31 AM [facility] Squamous Epithelial, Urine 28 0 - 60 /LPF LAB URINALYSIS - AUTOMATED METHOD 04/18/2025 9:31 AM [facility] Bacteria, Urine Many(A) Negative /HPF LAB URINALYSIS - AUTOMATED METHOD 04/18/2025 9:31 AM EDT [facility] Hyaline Casts, Urine 0.6 0 - 3 /LPF LAB URINALYSIS - AUTOMATED METHOD 04/18/2025 9:31 AM EDT [facility] Yeast, Urine Present(A) None /HPF LAB URINALYSIS - AUTOMATED METHOD 04/18/2025 9:31 AM EDT [facility] Urine Urine specimen obtained by clean catch procedure / Unknown Non-blood Collection / Unknown 04/18/2025 8:33 AM EDT 04/18/2025 9:00 AM EDT Mayra STEIN LAB URINE ORDERABLES Final R esult [facility] [address] [place] [address], [place] [phone] * León urine culture tube (04/18/2025 8:33 AM EDT) Extra Tube Hold for add-ons. 04/18/2025 10:01 AM EDT [facility] Comment:Auto resulted. Urine Urine specimen obtained by clean catch procedure / Unknown Non-blood Collection / Unknown 04/18/2025 8:33 AM EDT 04/18/2025 9:00 AM EDT Mayra STEIN LAB URINE ORDERABLES Final R esult [facility] [address] [place] [address], [place] [phone] * (ABNORMAL) Culture urine (04/18/2025 8:33 AM EDT) Only the most recent of2 resultswithin the time period is included. Culture, Urine 50,000-100,000 CFU/mL Enterobacter cloacae complex(A) [place] 04/20/2025 8:20 AM EDT [facility] Comment: This is an edited result. Previous organism was Gram negative bacilli on 04/19/2025 at 0759 EDT. Urine Urine specimen obtained by clean catch procedure / Unknown Non-blood Collection / Unknown 04/18/2025 8:33 AM EDT 04/18/2025 9:30 AM EDT Narrative Organism Antibiotic Method Susceptibility Enterobacter cloacae complex Amoxicillin/Clavulanate [place] >=32 ug/ml: Resistant Enterobacter cloacae complex Cefoxitin [place] >=64 ug/ml: Resistant Enterobacter cloacae complex Ceftazidime [place] >=32 ug/ml: Resistant Enterobacter cloacae complex Cefepime [place] 0.5 ug/ml: Susceptible Enterobacter cloacae complex Meropenem [place] <=0.25 ug/ml: Susceptible Enterobacter cloacae complex Amikacin [place] 4 ug/ml: Susceptible Enterobacter cloacae complex Gentamicin [place] <=1 ug/ml: Susceptible Enterobacter cloacae complex Ciprofloxacin [place] 0.5 ug/ml: Intermediate Enterobacter cloacae complex Levofloxacin [place] 1 ug/ml: Intermediate Enterobacter cloacae complex Nitrofurantoin [place] >=512 ug/ml: Resistant Enterobacter cloacae complex Trimethoprim/Sulfamethoxazo le [place] 80 ug/ml: Resistant Mayra STEIN LAB MICROBIOLOGY - GENERAL O RDERABLES Final Result [facility] [address] [place] [address], * (ABNORMAL) CBC auto differential (04/18/2025 8:05 AM EDT) [facility] Signature WBC 6.9 4.8 - 10.8 K/mcL LAB HEMETOLOGY METHOD 04/18/2025 8:31 AM EDT [facility] RBC 3.90 3.80 - 4.80 M/mcL LAB HEMETOLOGY METHOD 04/18/2025 8:31 AM EDT [facility] Hemoglobin 11.5 11.5 - 16.0 g/dL LAB HEMETOLOGY METHOD 04/18/2025 8:31 AM [facility] Hematocrit 35.4 35.0 - 47.0 % LAB HEMETOLOGY METHOD 04/18/2025 8:31 AM [facility] MCV 89.8 79.0 - 98.0 FL LAB HEMETOLOGY METHOD 04/18/2025 8:31 AM [facility] MCH 29.2 27.0 - 32.0 pcg LAB HEMETOLOGY METHOD 04/18/2025 8:31 AM [facility] MCHC 32.5 32.0 - 37.0 g/dL LAB HEMETOLOGY METHOD 04/18/2025 8:31 AM [facility] RDW 13.7 11.0 - 15.0 % LAB HEMETOLOGY METHOD 04/18/2025 8:31 AM [facility] Platelets 165 130 - 400 K/mcL LAB HEMETOLOGY METHOD 04/18/2025 8:31 AM [facility] MPV 9.8 7.0 - 11.0 FL LAB HEMETOLOGY METHOD 04/18/2025 8:31 AM [facility] NRBC 0.0 <1.0 % LAB HEMETOLOGY METHOD 04/18/2025 8:31 AM [facility] NRBC Absolute 0.00 <0.10 K/mcL LAB HEMETOLOGY METHOD 04/18/2025 8:31 AM [facility] Neutrophils Relative 74.7 % LAB HEMETOLOGY METHOD 04/18/2025 8:31 AM [facility] Lymphocytes Relative 12.1 % LAB HEMETOLOGY METHOD 04/18/2025 8:31 AM [facility] Monocytes Relative 9.7 % LAB HEMETOLOGY METHOD 04/18/2025 8:31 AM [facility] Eosinophils Relative 2.5 % LAB HEMETOLOGY METHOD 04/18/2025 8:31 AM EDT [facility] Basophils Relative 0.6 % LAB HEMETOLOGY METHOD 04/18/2025 8:31 AM EDT [facility] Immature Granulocytes Relative 0.4 % LAB HEMETOLOGY METHOD 04/18/2025 8:31 AM EDT [facility] Neutrophils Absolute 5.17 1.50 - 7.00 K/mcL LAB HEMETOLOGY METHOD 04/18/2025 8:31 AM EDT [facility] Lymphocytes Absolute 0.84(L) 1.00 - 5.00 K/mcL LAB HEMETOLOGY METHOD 04/18/2025 8:31 AM EDT [facility] Monocytes Absolute 0.67 0.20 - 1.00 K/mcL LAB HEMETOLOGY METHOD 04/18/2025 8:31 AM EDT [facility] Eosinophils Absolute 0.17 0.00 - 0.50 K/mcL LAB HEMETOLOGY METHOD 04/18/2025 8:31 AM EDT [facility] Basophils Absolute 0.04 0.00 - 0.20 K/mcL LAB HEMETOLOGY METHOD 04/18/2025 8:31 AM EDT [facility] Immature Granulocytes Absolute 0.03 0.00 - 0.03 K/mcL LAB HEMETOLOGY METHOD 04/18/2025 8:31 AM EDT [facility] Blood Venous blood specimen / Unknown Venipuncture / Unknown 04/18/2025 8:05 AM EDT 04/18/2025 8:18 AM EDT us Mayra STEIN LAB BLOOD ORDERABLES Final R esult [facility] [address] [place] [address], * Type and screen (04/18/2025 8:05 AM EDT) Pathologist [facility] ABO Group A 04/18/2025 10:06 AM EDT [facility] Rh Type Positive 04/18/2025 10:06 AM EDT [facility] Antibody Screen Negative 04/18/2025 10:06 AM T [facility] Blood Venous blood specimen / Unknown Venipuncture / Unknown 04/18/2025 8:05 AM EDT 04/18/2025 8:18 AM EDT Mayra STEIN LAB BLOOD BANK TEST ORDERABL ES Final Result [facility] [address] [place] [address], * (ABNORMAL) Basic metabolic panel (04/18/2025 8:05 AM EDT) [facility] Sodium 138 133 - 145 mmol/L LAB CHEMISTRY METHOD 04/18/2025 8:46 AM [facility] Potassium 3.7 3.5 - 5.5 mmol/L LAB CHEMISTRY METHOD 04/18/2025 8:46 AM [facility] Chloride 106 96 - 110 mmol/L LAB CHEMISTRY METHOD 04/18/2025 8:46 AM [facility] CO2 26 21 - 32 mmol/L LAB CHEMISTRY METHOD 04/18/2025 8:46 AM [facility] Anion Gap 6 3 - 11 LAB CHEMISTRY METHOD 04/18/2025 8:46 AM [facility] Glucose 240(H) 70 - 100 mg/dL LAB CHEMISTRY METHOD 04/18/2025 8:46 AM [facility] BUN 18 5 - 25 mg/dL LAB CHEMISTRY METHOD 04/18/2025 8:46 AM [facility] Creatinine 0.70 0.50 - 1.10 mg/dL LAB CHEMISTRY METHOD 04/18/2025 8:46 AM EDT [facility] eGFR 84 >=60 mL/min/1. 73m2 LAB CHEMISTRY METHOD 04/18/2025 8:46 AM EDT [facility] Comment:Calculation based on the Chronic Kidney Disease Epidemiology Collaboration (CKD-EPI) equation refit without adjustment for race. BUN/Creatinine Ratio 25.7 LAB CHEMISTRY METHOD 04/18/2025 8:46 AM EDT [facility] Calcium 9.4 8.5 - 10.5 mg/dL LAB CHEMISTRY METHOD 04/18/2025 8:46 AM EDT [facility] Blood Venous blood specimen / Unknown Venipuncture / Unknown 04/18/2025 8:05 AM EDT 04/18/2025 8:18 AM EDT Mayra STEIN LAB BLOOD ORDERABLES Final R esult [facility] [address] [place] [address], from Last 3 Months Insurance MEDICARE [facility] Care Teams Yard Specialist Relationship Specialty Start Date End Date Corrine Spangler MD [address] [place] [address] PCP - General Internal Medicine 02/23/25
--- OUTSIDE RECORDS SUMMARY | 2025-04-24 12:19 | XMS_ITS | Patient Health Record ---
Author Organization [facility] Address [address] [place] [address] Care Team Providers Care Parking Meter Mechanic Name Role Phone Corrine Spangler MD Primary Care Provider Nishant Amaro [phone] Allergies Allergen (clinical drug ingredient) Drug/Non Drug [...] Problem Status W/U Status Risk Notes Problem 15663417 Pancreatic cyst (K86.2) Active confirmed Problem 55641297 Constipation, unspecified constipation type (K59.00) Active confirmed Problem 520440564 Abdominal pain, left lower quadrant (R10.32) Active confirmed Problem 40519805 Irritable bowel syndrome, unspecified type (K58.9) Active confirmed Problem 39030723 Hypertension, unspecified type (I10) Active confirmed Plan Of Treatment No Information Insurance Providers Payer Name Payer Address Payer Phone Subscriber Number Group Number Insured Name Patient Relationship to Insured Coverage Start Date Coverage End Date MEDICARE OF [place] [address] [place] [address] [id number] HOOD CASTILLO Self - patient is the insured [facility] [address] [place] [address] [phone] [id number] HOOD CASTILLO Self - patient is the insured Medical (General) History Medical History History ICD Code Chronic diarrhea/IBS-colonos copy biopsies negative for colitis in 1994 and labs neg. for celiac disease in 2009 Colon polyps-tubular adenoma s removed in 1999 and 2009-colonoscopy was negative in 2004 except for AVM's NIDDM Hyperlipidemia Hypertension Breast [id number] lumpectomy with XRT UTI's Denies [place],CVA,renal disease Bronchitis Pancreatic cysts seen on MRI in 09/[address] scan in November of 2022 Asthma Surgical History Surgery Date(Month/Year) Cholecystectomy JOANA Rectovaginal fistula repair in 1994 Bladder suspension Veins in LE's Breast cancer as above
--- OUTSIDE RECORDS SUMMARY | 2025-04-24 12:20 | XMS_ITS | Encounter Summary ---
Author Organization [facility] Address [address] [place] [address] Care Team Providers Care Head Bucker Name Role Phone Corrine Spangler MD Primary Care Provider [phone] Encounter Details Date Type Department Care Team (Late st Contact Info) Description 02/23/2025 Lab Requisition [facility] - Main Lab [address] [facility] [place] [address] Mamadou Schmid, EM[address] [place], [place] [id number] Urinary tract infection, site not specified Social [...] cloacae complex(A) [place] 02/25/2025 10:20 AM EDT [facility] Comment: This is an edited [...] complex Trimethoprim/Sulfamethoxazo le [place] <=20 ug/ml: Susceptible [facility] MICROBIOLOGY - [facility] Final Result [facility] [address] [place] [address], documented in this encounter Visit Diagnoses Diagnosis Urinary tract infection, site not specified documented in this encounter Care Teams Head Bucker Relationship Specialty Start Date End Date Corrine Spangler MD [address] [place] [address] PCP - General Internal Medicine 02/23/25 documented as of this encounter
== END 2025-04-24 11:15 | disposition home or self-care (01) ==
LOC: HO.HMCC 10:09
PROVIDERS: PCP Internal Medicine; Visit Provider Internal Medicine
DX: N39.0 Urinary tract infection, site not specified (principal); I10 Essential (primary) hypertension; E11.9 Type 2 diabetes mellitus without complications

== ENCOUNTER 2025-04-24 10:08 | Outpatient (REF) | payer MEDICARE, OTHER, SELFPAY ==
[2025-04-24 16:46] LABS: Appearance Urine Turbid; Glucose Urine UA 100 mg/dL (Negative); PH 5.5 (5.0-9.0); Specific Gravity - Urine 1.020 (1.005-1.025); UMIC TRIGGER UA YES
== END 2025-04-24 10:09 | disposition home or self-care (01) ==
LOC: HO.HMGCLDS 10:08
PROVIDERS: PCP Internal Medicine; Visit Provider Internal Medicine
DX: N39.0 Urinary tract infection, site not specified (principal); E11.9 Type 2 diabetes mellitus without complications; I10 Essential (primary) hypertension; Z79.84 Long term (current) use of oral hypoglycemic drugs; Z79.85 Long-term (current) use of injectable non-insulin antidiabetic drugs; Z79.899 Other long term (current) drug therapy
CPT/HCPCS: 81001; 87086; 87088; 87186; 99212

== ENCOUNTER 2025-05-28 09:07 | Outpatient (AMB) | payer MEDICARE, OTHER, SELFPAY ==
[2025-05-28 09:08] VITALS: BP 124/58; PULSE 89; TEMP 37; O2SAT 98; BMI 26.3
--- NOTE | 2025-05-28 09:08 | MHC.OFFWIV ---
Intake Vital Signs 05/28/25 09:08 Height 5 ft 2 in Weight 144 lb BMI 26.3 BP 124/58 L Blood Pressure Location Lt brachial Position Sitting Pulse 89 Pulse Source Pulse Oximeter Temp 98.6 F Temp Source Oral Pulse Oximetry (%) 98 Oxygen Delivery Method Room Air Intake Visit Reasons: EP Allergic reaction to medication Intake Note: pt reports concern for reaction to estrogen cream, applied to vagina for 28 days, headache, bilateral lower abdominal pain and RT breast pain, s/s mostly resolved immediately after stopping x1 week. reports minimal RT breast pain remains. pt reports h/o RT BRCA - treated with radiation and lumpectomy. Patient Tobacco Use Status: Never used Tobacco Allergies alendronate sodium (From FOSAMAX) Allergy (Intermediate, Verified 05/28/25 09:16) DIARRHEA ciprofloxacin (CIPROFLOXACIN) Allergy (Intermediate, Verified 05/28/25 09:16) HEADACHE,SOB hydrochlorothiazide (HYDROCHLOROTHIAZIDE) Allergy (Intermediate, Verified 05/28/25 09:16) HEADACHE,DIZZINESS, Gi upset levofloxacin (From LEVAQUIN) Allergy (Intermediate, Verified 05/28/25 09:16) HEADACHE,SOB metformin (METFORMIN) Allergy (Intermediate, Verified 05/28/25 09:16) DIARRHEA, Gi upset pravastatin (PRAVASTATIN) Allergy (Intermediate, Verified 05/28/25 09:16) HEADACHE,SOB, Gi upset simvastatin (SIMVASTATIN) Allergy (Intermediate, Verified 05/28/25 09:16) HEADACHE,SOB, Gi upset canagliflozin (From INVOKANA) Adverse Reaction (Intermediate, Verified 05/28/25 09:16) DIARRHEA dapagliflozin (From FARXIGA) Adverse Reaction (Intermediate, Verified 05/28/25 09:16) DIARRHEA dulaglutide (From Trulicity) Adverse Reaction (Intermediate, Verified 05/28/25 09:16) skin bumps mannitol (From Reclast) Adverse Reaction (Verified 05/28/25 09:16) bone pain water for injection,sterile (From Reclast) Adverse Reaction (Verified 05/28/25 09:16) bone pain zoledronic acid (From Reclast) Adverse Reaction (Verified 05/28/25 09:16) bone pain From PERCOCET Adverse Reaction (Mild, Uncoded 04/10/25 12:51) NAUSEA Do you need a note to return to daycare/school/sports/work: No HPI HPI Comments History of Present Illness Details History - The patient is an 84-year-old female presenting with evaluation of headaches and back pain possibly related to estrogen therapy. - Estrogen was prescribed to manage recurrent urinary tract infections, but it resulted in persistent daily headaches for 28 days, which ceased after discontinuation. - She has a history of breast cancer and hysterectomy, and reported breast pain potentially linked to the estrogen use. - No urinary tract infections have occurred since starting estrogen, though she experienced back pain after physical exertion, typically a sign of UTIs for her. - She has no frequency or urgency. - She has no blood in the urine, fever, or chills. - She wants another cream or a lower dose because it did prevent her from getting UTIs. Physical Exam General: Cooperative, healthy appearing, comfortable, no acute distress and well developed Cardiac: Normal S1 and S2. RRR, no M/R/G noted. Respiratory: Normal respiratory effort and able to speak in complete sentences. Clear to auscultation bilaterally. No w/r/r noted. Skin: No rashes or lesions noted. GI: Normal inspection. Normal BS noted. Soft, non-tender, non-distended. No TTP of all 4 quadrants. No guarding or rebound tenderness noted. Back: No midline spinous tenderness noted. No steps offs noted. No TTP of the lumbar muscles bilaterally. No SI tenderness noted. Negative CVA bilaterally. Patient was informed and verbally consented to the use of an ambient scribe for clinic note documentation during this visit. [facility] Medical History Annual physical exam Asthma Diabetes mellitus HTN (hypertension) Diastolic dysfunction Family history of total abdominal hysterectomy and bilateral salpingo-oophorectomy (JOANA-BSO) Surgical History Hx of bilateral cataract extraction History of bladder suspension procedure History of lumpectomy of right breast History of trigger finger History of urethrocutaneous fistula Hx of hysterectomy Hx of section Hx of appendectomy Family History Father CAD (coronary artery disease) Mother Parkinson disease Mental health disorder Brother Diabetes Melanoma Social History Housing: House Alcohol intake: never Patient Tobacco Use Status: Never used Tobacco e-Cigarette/Vaping Use: Never Used Second Hand Smoke Exposure: No service: No Current occupational status: retired 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 Cognitive needs: No Hearing needs: No Vision needs: Yes Review of Systems Const All systems reviewed & are unremarkable except as noted in HPI and below Physical Exam Vital Signs: Last Vital Signs Temp 98.6 F 05/28/25 09:08 Pulse 89 05/28/25 09:08 BP 124/58 L 05/28/25 09:08 Pulse Ox 98 05/28/25 09:08 Oxygen Delivery Method Room Air 05/28/25 09:08 BMI result Body Mass Index 26.3 Results AMB Urinalysis, Automated UA Leukoctes 125 Cuong/uL Last Edit by Barbara Kirby MA on 05/28/25 10:46 2+ Barbara Kirby 05/28/25 10:46 UA Nitrite Negative Last Edit by Barbara Kirby MA on 05/28/25 10:46 UA Urobilinogen 0.2 mg/dL Last Edit by Barbara Kirby MA on 05/28/25 10:46 UA Protein 0 mg/dL Last Edit by Barbara Kirby MA on 05/28/25 10:46 UA pH 6.0 Last Edit by Barbara Kirby MA on 05/28/25 10:46 UA Blood 25 Chago/uL Last Edit by Barbara Kirby MA on 05/28/25 10:46 1+ Barbara Kirby 05/28/25 10:46 UA Specific Magnet 1.025 Last Edit by Barbara Kirby MA on 05/28/25 10:46 UA Ketone Negative Last Edit by Barbara Kirby MA on 05/28/25 10:46 UA Bilirubin 0 mg/dL Last Edit by Barbara Kirby MA on 05/28/25 10:46 UA Glucose 250 mg/dL Last Edit by Barbara Kirby MA on 05/28/25 10:46 1+ Barbara Kirby 05/28/25 10:46 Results Reviewed Results Reviewed: Laboratory Last Values Urine pH (Auto) 6.0 05/28/25 09:53 Specific Magnet (Auto) 1.025 05/28/25 09:53 Urine Protein (Auto) 0 mg/dL 05/28/25 09:53 Glucose (UA)(Auto) 250 mg/dL H* 05/28/25 09:53 Urine Ketones (Auto) Negative 05/28/25 09:53 Urine Blood (Auto) 25 Chago/uL H* 05/28/25 09:53 Urine Nitrite (Auto) Negative 05/28/25 09:53 Urine Bilirubin (Auto) 0 mg/dL 05/28/25 09:53 Urine Urobilinogen (Auto) 0.2 mg/dL 05/28/25 09:53 Leukocyte Esterase (Auto) 125 Cuong/uL H* 05/28/25 09:53 Assessment & Plan Assessment & Plan (1) Medication reaction: Code(s): T50.905A - Adverse effect of unspecified drugs, medicaments and biological substances, initial encounter Qualifiers: Encounter type: initial encounter Qualified Code(s): T50.905A - Adverse effect of unspecified drugs, medicaments and biological substances, initial encounter (2) Low back pain: Code(s): M54.50 - Low back pain, unspecified Qualifiers: Back pain laterality: bilateral Chronicity: acute Sciatica presence: without sciatica Qualified Code(s): M54.50 - Low back pain, unspecified Plan Most likely [place] from her estrogen cream UA 2+ leuko, 1+blood 1+glucose Plan - Discontinue estrogen therapy due to adverse effects, including headaches and breast pain. - Conduct urinalysis to rule out urinary tract infection as a cause of back pain. - will treat with antibiotics if UA is positive. - will then send a culture - Communicate with Dr. Spangler regarding the adverse effects and consider alternative treatments for urinary tract infection prevention. Orders: Orders AMB Urinalysis Automated Today M54.9 - Dorsalgia, unspecified Urine Culture Today N39.0 - Urinary tract infection, site not specified Medications: New nitrofurantoin monohyd/m-cryst 100 mg (Macrobid) must administer with a meal/food 100 mg PO q12h 14 caps 0RF 7 days Coding Level of Care Code Est Pt Level 4 (43720) Diagnoses Adverse effect of drug, initial encounter T50.905A Encounter type: initial encounter Acute bilateral low back pain without sciatica M54.50 Back pain laterality: bilateral Chronicity: acute Sciatica presence: without sciatica
--- OUTSIDE RECORDS SUMMARY | 2025-05-28 09:58 | XMS_ITS | Clinical Summary ---
Author Organization [address] [facility] Address [address] [place] [address] Phone Care Team Providers Care Residential Interior Designer Name Role Phone Corrine Spangler MD Primary Care Provider [phone] Allergies Active Allergy Reactions Criticality Noted Date Comments Ciprofloxacin 04/18/2025 Hydrochlorothiazide 04/18/2025 Levofloxacin 04/18/2025 Lidocaine 04/18/2025 Metformin 04/18/2025 Pravastatin 04/18/2025 Simvastatin 04/18/2025 Sulfa (Sulfonamide Antibiotics) GI intolerance 04/18/2025 Encounters Date Type Department Care Team Description 04/18/2025 7:31 AM EDT - 04/18/2025 4:50 PM EDT Emergency [facility] Emergency [address] [place] [address] Dolores Tong DO Cystitis (Primary Dx) Discharge Disposition: Home or Self Care from Last 3 Months Social History Tobacco [...] AND DIFFERENTIAL STAT 04/18/2025 8:05 AM EDT from Last 3 Months Results * (ABNORMAL) Urinalysis with reflex microscopic and culture (04/18/2025 8:33 AM EDT) Specific Britt Urine 1.020 1.003 - 1.030 LAB URINALYSIS - AUTOMATED METHOD 04/18/2025 9:31 AM [facility] pH, Urine 5.5 5.0 - 8.0 pH LAB URINALYSIS - AUTOMATED METHOD 04/18/2025 9:31 AM [facility] Leukocytes, Urine Large(A) Negative LAB URINALYSIS - AUTOMATED METHOD 04/18/2025 9:31 AM [facility] Nitrite, Urine Positive(A) Negative LAB URINALYSIS - AUTOMATED METHOD 04/18/2025 9:31 AM [facility] Protein, Urine 100(A) <=Trace mg/dL LAB URINALYSIS - AUTOMATED METHOD 04/18/2025 9:31 AM [facility] Glucose, Urine 100(A) Negative mg/dL LAB URINALYSIS - AUTOMATED METHOD 04/18/2025 9:31 AM [facility] Ketones, Urine Negative Negative mg/dL LAB URINALYSIS - AUTOMATED METHOD 04/18/2025 9:31 AM [facility] Urobilinogen , Urine 0.2 0.2 - 1.0 mg/dL LAB URINALYSIS - AUTOMATED METHOD 04/18/2025 9:31 AM [facility] Bilirubin, Urine Negative Negative LAB URINALYSIS - AUTOMATED METHOD 04/18/2025 9:31 AM [facility] Blood, Urine Moderate(A) Negative LAB URINALYSIS - AUTOMATED METHOD 04/18/2025 9:31 AM [facility] RBC, Urine 44.8(H) 0 - 4 /HPF LAB URINALYSIS - AUTOMATED METHOD 04/18/2025 9:31 AM [facility] WBC, Urine 1,526.1(H) 0 - 4 /HPF LAB URINALYSIS - AUTOMATED METHOD 04/18/2025 9:31 AM [facility] Squamous Epithelial, Urine 28 0 - 60 /LPF LAB URINALYSIS - AUTOMATED METHOD 04/18/2025 9:31 AM [facility] Bacteria, Urine Many(A) Negative /HPF LAB URINALYSIS - AUTOMATED METHOD 04/18/2025 9:31 AM [facility] Hyaline Casts, Urine 0.6 0 - 3 /LPF LAB URINALYSIS - AUTOMATED METHOD 04/18/2025 9:31 AM [facility] Yeast, Urine Present(A) None /HPF LAB URINALYSIS - AUTOMATED METHOD 04/18/2025 9:31 AM [facility] Urine Urine specimen obtained by clean catch procedure / Unknown Non-blood Collection / Unknown 04/18/2025 8:33 AM EDT 04/18/2025 9:00 AM EDT Mayra STEIN LAB URINE ORDERABLES Final R esult Performing Organization Address [facility]/ZIP Co de Phone Number [facility] [address] [place] [address], [place] [phone] * León urine culture tube (04/18/2025 8:33 AM EDT) Extra Tube Hold for add-ons. 04/18/2025 10:01 AM EDT [facility] Comment:Auto resulted. Urine Urine specimen obtained by clean catch procedure / Unknown Non-blood Collection / Unknown 04/18/2025 8:33 AM EDT 04/18/2025 9:00 AM EDT [facility] URINE ORDERABLES Final R esult Performing Organization Address [facility] Co de Phone Number [facility] [address] [place] [address], [place] [phone] * (ABNORMAL) Culture urine (04/18/2025 8:33 AM EDT) Pathologist [facility] Culture, Urine 50,000-100,000 CFU/mL Enterobacter cloacae complex(A) [place] 04/20/2025 8:20 AM EDT [facility] Comment: This is an [...] complex Trimethoprim/Sulfamethoxazo le [place] 80 ug/ml: Resistant us Mayra STEIN LAB MICROBIOLOGY - GENERAL O RDERABLES Final Result [facility] [address] [place] [address], * (ABNORMAL) CBC auto differential (04/18/2025 8:05 AM EDT) WBC 6.9 4.8 - 10.8 K/mcL LAB HEMETOLOGY METHOD 04/18/2025 8:31 AM EDT [facility] RBC 3.90 3.80 - 4.80 M/mcL LAB HEMETOLOGY METHOD 04/18/2025 8:31 AM EDT [facility] Hemoglobin 11.5 11.5 - 16.0 g/dL LAB HEMETOLOGY METHOD 04/18/2025 8:31 AM EDT [facility] Hematocrit 35.4 35.0 - 47.0 % LAB HEMETOLOGY METHOD 04/18/2025 8:31 AM EDT [facility] MCV 89.8 79.0 - 98.0 FL LAB HEMETOLOGY METHOD 04/18/2025 8:31 AM EDT [facility] MCH 29.2 27.0 - 32.0 pcg LAB HEMETOLOGY METHOD 04/18/2025 8:31 AM EDT [facility] MCHC 32.5 32.0 - 37.0 g/dL LAB HEMETOLOGY METHOD 04/18/2025 8:31 AM [facility] RDW 13.7 11.0 - 15.0 % LAB HEMETOLOGY METHOD 04/18/2025 8:31 AM [facility] Platelets 165 130 - 400 K/mcL LAB HEMETOLOGY METHOD 04/18/2025 8:31 AM [facility] MPV 9.8 7.0 - 11.0 FL LAB HEMETOLOGY METHOD 04/18/2025 8:31 AM [facility] NRBC 0.0 <1.0 % LAB HEMETOLOGY METHOD 04/18/2025 8:31 AM [facility] NRBC Absolute 0.00 <0.10 K/mcL LAB HEMETOLOGY METHOD 04/18/2025 8:31 AM [facility] Neutrophils Relative 74.7 % LAB HEMETOLOGY METHOD 04/18/2025 8:31 AM [facility] Lymphocytes Relative 12.1 % LAB HEMETOLOGY METHOD 04/18/2025 8:31 AM [facility] Monocytes Relative 9.7 % LAB HEMETOLOGY METHOD 04/18/2025 8:31 AM [facility] Eosinophils Relative 2.5 % LAB HEMETOLOGY METHOD 04/18/2025 8:31 AM [facility] Basophils Relative 0.6 % LAB HEMETOLOGY METHOD 04/18/2025 8:31 AM [facility] Immature Granulocytes Relative 0.4 % LAB HEMETOLOGY METHOD 04/18/2025 8:31 AM [facility] Neutrophils Absolute 5.17 1.50 - 7.00 K/mcL LAB HEMETOLOGY METHOD 04/18/2025 8:31 AM [facility] Lymphocytes Absolute 0.84(L) 1.00 - 5.00 K/mcL LAB HEMETOLOGY METHOD 04/18/2025 8:31 AM EDT [facility] Monocytes Absolute 0.67 0.20 - 1.00 K/[facility] LAB HEMETOLOGY METHOD 04/18/2025 8:31 AM EDT [facility] Eosinophils Absolute 0.17 0.00 - 0.50 K/[facility] LAB HEMETOLOGY METHOD 04/18/2025 8:31 AM EDT [facility] Basophils Absolute 0.04 0.00 - 0.20 K/[facility] LAB HEMETOLOGY METHOD 04/18/2025 8:31 AM EDT [facility] Immature Granulocytes Absolute 0.03 0.00 - 0.03 K/[facility] LAB HEMETOLOGY METHOD 04/18/2025 8:31 AM EDT [facility] Blood Venous blood specimen / Unknown Venipuncture / Unknown 04/18/2025 8:05 AM EDT 04/18/2025 8:18 AM EDT us Mayra STEIN LAB BLOOD ORDERABLES Final R esult Performing Organization Address City/State/[facility] Co de Phone Number [facility] [address] [place] [address], * Type and screen (04/18/2025 8:05 AM EDT) ABO Group A 04/18/2025 10:06 AM EDT [facility] Rh Type Positive 04/18/2025 10:06 AM EDT [facility] Antibody Screen Negative 04/18/2025 10:06 AM EDT [facility] Blood Venous blood specimen / Unknown Venipuncture / Unknown 04/18/2025 8:05 AM EDT 04/18/2025 8:18 AM EDT us Mayra STEIN LAB BLOOD BANK TEST ORDERABL ES Final Result [facility] [address] [place] [address], * (ABNORMAL) Basic metabolic panel (04/18/2025 8:05 AM EDT) Sodium 138 133 - 145 mmol/L LAB CHEMISTRY METHOD 04/18/2025 8:46 AM [facility] Potassium 3.7 3.5 - 5.5 mmol/L LAB CHEMISTRY METHOD 04/18/2025 8:46 AM [facility] Chloride 106 96 - 110 mmol/L LAB CHEMISTRY METHOD 04/18/2025 8:46 AM [facility] CO2 26 21 - 32 mmol/L LAB CHEMISTRY METHOD 04/18/2025 8:46 AM [facility] Anion Gap 6 3 - 11 LAB CHEMISTRY METHOD 04/18/2025 8:46 AM [facility] Glucose 240(H) 70 - 100 mg/dL LAB CHEMISTRY METHOD 04/18/2025 8:46 AM [facility] BUN 18 5 - 25 mg/dL LAB CHEMISTRY METHOD 04/18/2025 8:46 AM [facility] Creatinine 0.70 0.50 - 1.10 mg/dL LAB CHEMISTRY METHOD 04/18/2025 8:46 AM [facility] eGFR 84 >=60 mL/min/1. 73m2 LAB CHEMISTRY METHOD 04/18/2025 8:46 AM [facility] Comment:Calculation based on the Chronic Kidney Disease Epidemiology Collaboration (CKD-EPI) equation refit without adjustment for race. BUN/Creatinine Ratio 25.7 LAB CHEMISTRY METHOD 04/18/2025 8:46 AM [facility] Calcium 9.4 8.5 - 10.5 mg/dL LAB CHEMISTRY METHOD 04/18/2025 8:46 AM EDT [facility] Blood Venous blood specimen / Unknown Venipuncture / Unknown 04/18/2025 8:05 AM EDT 04/18/2025 8:18 AM EDT Mayra STEIN LAB BLOOD ORDERABLES Final R esult [facility] [address] [place] [address], from Last 3 Months Insurance MEDICARE [facility] Care Teams Residential Interior Designer Relationship Specialty Start Date End Date Corrine Spangler MD [address] [place] [address] PCP - General Internal Medicine 02/23/25
--- OUTSIDE RECORDS SUMMARY | 2025-05-28 09:58 | XMS_ITS | Encounter Summary ---
Author Organization [facility] Address [address] [place] [address] Care Team Providers Care Machine Steak Tenderizer Name Role Phone Corrine Spangler MD Primary Care Provider [phone] Encounter Details Date Type Department Care Team (Late st Contact Info) Description 02/23/2025 Lab Requisition [facility] [address] [facility] [place] [address] Mamadou Schmid, EMIL [address] [place], [place] [id number] Urinary tract infection, site not specified Social [...] cloacae complex(A) [place] 02/25/2025 10:20 AM EDT [facility] Comment: This is an edited result. [...] complex Trimethoprim/Sulfamethoxazo le [place] <=20 ug/ml: Susceptible [facility] MICRO[facility]OLOGY - [facility] Final Result [facility] [address] [place] [address], documented in this encounter Visit Diagnoses Diagnosis Urinary tract infection, site not specified documented in this encounter Care Teams Machine Steak Tenderizer Relationship Specialty Start Date End Date Corrine Spangler MD [address] [place] [address] PCP - General Internal Medicine 02/23/25 documented as of this encounter
--- OUTSIDE RECORDS SUMMARY | 2025-05-28 09:58 | XMS_ITS | Data Portability ---
Author Organization [facility], [facility] Address [address] [place] [address] Care Team Providers Care Diversional Therapist'S Assistant Name Role Phone [facility] Primary Care Provider [facility] OTHER [phone] Assessment No assessment recorded. Plan of Treatment Reminders Order Date Submit Date Provider Last Modified By Organization Details Last Modified Time Details Appointments None recorded. Lab urinalysis , dipstick 2022 023 [facility], [address] [place] [address], [address], 3 09:13:00 glucose, fingerstic k, blood 2022 023 [facility], [address] [place] [address], [address], 3 09:13:00 culture, urine 2022 023 [facility], [address] [place] [address], [place], [address], 3 16:06:30 Referral None recorded. Procedures None recorded. Surgeries None recorded. Imaging None recorded. Medication Orders Macrobid 100 mg capsule 2022 023 OGDEN [id number], [address] [place], [address], 3 09:13:03 Patient TargetsNo targets recorded. Patient Instructions Encounter Date Encounter Id Patient Instructions Last Modified By Organization Details Last Modified Time 11/07/2022 [id number] nausea and vomiting: care instructions Not available [...] to have routine doctor appointments with their abseiling instructor and/or primary care provider to examine or [...] green veggies (e.g., broccoli, spinach, brussels sprouts) [place] veggies (e.g., carrots, sweet potatoes, pumpkin, winter [...] calluses are present, ask a doctor or ways operator about the best way to care for [...] routine FINAL REPORT abnormal Not Available [facility] ([facility]) [address] [place], [address], 11/14/2022 08:07:39 11/08/1911/14/2022 URINE CULTU RE, ROUTI NE result 1 ENTERO BACTER SPECIE S abnormal 50,00 0-100 ,000 colon y formi ng units per mL Not Available [facility] ([facility]) [address] [facility], , [address], 11/14/2022 08:07:39 11/08/1911/14/2022 URINE CULTU RE, ROUTI [...] thopr im/Lopez lfa S Not Available [facility] ([facility]) [address] [facility], , [address], 11/14/2022 08:07:39 11/08/1911/07/2022 gluco se, finge rstic k, blood blood sugar - non fasting 221 mg/dL 80-140 = normal Not Available [address], [place], [address], 11/07/2022 08:38:45 11/08/19 23 11/07/2022 gluco se, finge rstic k, blood blood sugar - fasting mg/dL 80-125 = normal Not Available [address], [place], [address], 11/07/2022 08:38:45 11/08/19 23 11/07/2022 urina lysis , dipst ick Unknown Analyte Normal = light yellow Not Available [address], [place], [address], 11/07/2022 08:31:12 11/08/19 23 11/07/2022 urina lysis , dipst ick Unknown Analyte Yellow Not Available [address], [place], [address], 11/07/2022 08:31:12 11/08/19 23 11/07/2022 urina lysis , dipst ick Unknown Analyte Normal = clear Not Available [address], [place], [address], 11/07/2022 08:31:12 11/08/19 23 11/07/2022 urina lysis , dipst ick Unknown Analyte Clear Not Available [address], [place], [address], 11/07/2022 08:31:12 04/08/11/07/2022 urina lysis , dipst ick Unknown Analyte Normal = negati ve Not Available pete blankenship [address], [place], [address], 11/07/2022 08:31:12 11/08/19 23 11/07/2022 urina lysis , dipst ick Unknown Analyte 250 mg/dL Not Available pete blankenship [address], [place], [address], 11/07/2022 08:31:12 11/08/19 23 11/07/2022 urina lysis , dipst ick Unknown Analyte Normal = Negati ve Not Available pete blankenship [address], [place], [address], 11/07/2022 08:31:12 11/08/19 23 11/07/2022 urina lysis , dipst ick Unknown Analyte Negati ve Not Available pete blankenship [address], [place], [address], 11/07/2022 08:31:12 11/08/19 23 11/07/2022 urina lysis , dipst ick Unknown Analyte Normal = Negati ve Not Available pete blankenship [address], [place], [address], 11/07/2022 08:31:12 11/08/19 23 11/07/2022 urina lysis , dipst ick Unknown Analyte Negati ve Not Available pete blankenship [address], [place], [place], [address], 11/07/2022 08:31:12 11/08/19 23 11/07/2022 urina lysis , dipst ick Unknown Analyte Normal = 1.010, 1.015, 1.020 Not Available pete blankenship [address], [place], [place], [address], 11/07/2022 08:31:12 11/08/19 23 11/07/2022 urina lysis , dipst ick Unknown Analyte 1.030 Not Available [facility] [address], [place], [address], 11/07/2022 08:31:12 11/08/19 23 11/07/2022 urina lysis , dipst ick Unknown Analyte Normal = Negati ve Not Available pete blankenship [address], [place], [address], 11/07/2022 08:31:12 11/08/19 23 11/07/2022 urina lysis , dipst ick Unknown Analyte Trace- intact Not Available [facility] [address], [place], [address], 11/07/2022 08:31:12 11/08/19 23 11/07/2022 urina lysis , dipst ick Unknown Analyte Normal = 6.5, 7.0, 7.5, 8.0 Not Available [facility] [address], [place], [address], 11/07/2022 08:31:12 11/08/19 23 11/07/2022 urina lysis , dipst ick Unknown Analyte 5.5 Not Available [address], [place], [address], 11/07/2022 08:31:12 11/08/19 23 11/07/2022 urina lysis , dipst ick Unknown Analyte Normal = Negati ve Not Available [address], [place], [address], 11/07/2022 08:31:12 11/08/19 23 11/07/2022 urina lysis , dipst ick Unknown Analyte 30 mg/dL Not Available pete blankenship [address], [place], [address], 11/07/2022 08:31:12 11/08/1911/07/2022 urina lysis , dipst ick Unknown Analyte Normal = 0.2, 1.0 Not Available [address] [place] [address], [place], [address], 11/07/2022 08:31:12 11/08/19 23 11/07/2022 urina lysis , dipst ick Unknown Analyte 0.2 E.U./d L Not Available [facility] [address], [place], [address], 11/07/2022 08:31:12 11/08/19 23 11/07/2022 urina lysis , dipst ick Unknown Analyte Normal = Negati ve Not Available [address], [place], [address], 11/07/2022 08:31:12 11/08/1911/07/2022 urina lysis , dipst ick Unknown Analyte Negati ve Not Available [address] [place] [address], [place], [address], 11/07/2022 08:31:12 11/08/19 23 11/07/2022 urina lysis , dipst ick Unknown Analyte Normal = Negati ve Not Available [facility] [address], [place], [address], 11/07/2022 08:31:12 11/08/19 23 11/07/2022 urina lysis , dipst ick Unknown Analyte Small Not Available [address] [place] [address], [place], [address], 11/07/2022 08:31:12 Result Notes None recorded. Problems Name Problem SNOMED Code Status Onset Date Resolution Date Notes Provider Name and Address Organization Details Recorded Time Diabetes mellitus 33220749 Active 2022 OLIVIA DEPINTO null, [place] - [facility] 3 08:21:08 Osteoporosi s 60482147 Active 2022 OLIVIA DEPINTO null, PA - [facility] 3 08:21:27 Gastroesoph ageal reflux disease 107668528 Active 2022 OLIVIA DEPINTO null, PA - [facility] 3 08:21:32 Hypertensiv e disorder 18113114 Active 2022 OLIVIA DEPINTO null, PA - [facility] 3 08:21:37 Asthma 684540712 Active 2022 OLIVIA DEPINTO null, PA - [facility] 3 08:21:49 Malignant neoplasm of breast 005272340 Completed 202211/07/20222003 OLIVIA DEPINTO null, PA - [...] Name and Address Organization Details Recorded Time 160869 hydrochlo rothiazid e medicatio n diarrhea Not available Not available 11/07/2022 5487 RxNorm OLIVIA DEPINTO null, PA - [facility] 3 08:18:50 031410 pravastat in medicatio n diarrhea Not available Not available 11/07/2022 32078 RxNorm OLIVIA DEPINTO null, PA - [facility] 3 08:19:10 737882 metformin medicatio n diarrhea Not available Not available 11/07/2022 6809 RxNorm OLIVIA DEPINTO null, PA - [facility] 3 08:19:19 277484 ciproflox acin medicatio n diarrhea Not available Not available 11/07/2022 2551 RxNorm OLIVIA DEPINTO null, PA - [facility] 3 08:19:43 235036 alendrona te sodium medicatio n diarrhea Not available Not available 11/07/2022 42870 2 RxNorm OLIVIA DEPINTO null, PA - [facility] 3 08:19:52 868968 Farxiga medicatio n diarrhea Not available Not available 11/07/2022 39868 72 RxNorm OLIVIA DEPINTO null, PA - [...] Updated DateTime 3 154.94 cm 27 kg/m2 21371.7 1 g 0 18 /min 97.2 [degF] 96 % 96 % 75 /min 151/73 mm[Hg] OLIVIA FEMI [employer] 08:27:08 Social History Question Answer Notes LastModified by Edvivo Details LastModified Time Tobacco Smoking Status Never Smoker [facility]IVIA [facility] 11/07/2022 08:22:09 Have You Recently Traveled Abroad? No Information not available 11/07/2022 Sex: Unknown Functional Status Question Answer Note LastModified by Edvivo Details LastModified Time Do you use any [...] [facility] 11/07/2022 08:16:22 Pneumococcal conjugate PCV20, polysaccharide JSI759 conjugate, adjuvant, PF 3 completed OLIVIA DEPINTO [...] Diagnosis SNOMED-CT Code Diagnosis ICD10 Code Diagnosis IMO Codes Diagnosis Note [id number] [facility] [address] [address] [place] [address] 05/01/2018 11:10:17 05/01/2018 12:08:27 [id number] [address] [place] [address] 07/04/2018 08:22:27 07/04/2018 08:50:56 [id number] [address] [place] [address] 10/16/2016 13:39:10 10/16/2016 15:34:24 [id number] [address] [place] [address] 10/16/2018 08:16:49 10/16/2018 09:03:27 [id number] [address] [place] [address] 12/05/2016 08:05:07 12/05/2016 09:01:39 [id number] [address] [place] [address] 08/09/2017 08:51:37 08/09/2017 09:35:02 [id number] [address] [address] [place] [address] 08/06/2015 10:01:18 08/06/2015 11:48:14 [id number] [address] [place] [address] 09/15/2016 10:47:05 09/15/2016 12:43:09 [id number] [address] [address] [facility] [address] [place] [address] 10/19/2016 14:20:17 10/19/2016 16:00:31 [id number] Luis Pierce, [employer] [address] [place] [address] 11/07/2022 08:06:50 11/07/2022 09:16:29 Acute urinary tract infection 999317749 N39.0 Diabetes m ellitus screening 526513459 Z13.1 Type 2 lois betes mellitus 97916097 E11.22 Health Concerns Section Related Observation LastModified by Organization Detai ls LastModified Time None Recorded Concern Status LastModified by Organization Details LastModified Time None Recorded Advance Directives Directive None Recorded Payers Insurance Date Sequence Insurance Name Policy Number Policy Mercedes Covered Member ID Mercedes Member ID Guarantor Name 11/07/2022 1 [place]: [employer] Genie Harrington [id number] Genie Harrington 11/07/2022 2 [facility] Genie kim [id number] Genie E Cornelio Harrington Notes Date Note Type Note Provider Name and Address Organization Details Recorded Time 11/07/2022 text/html Urinary Complain t FemaleReported by PatientUrinary problemsFor uti symptoms, patient reportsurinary frequencybut reportsno blood in the urine,no pain during urination,no vaginal discharge,no urgency,no pain in the flank,no fever/chills,no incontinence,no recurrent uti, andno known exposure to std. For source of patient information, patient reportsinformation obtained from patientandpatient arrived at urgent care ambulatory. For severity, patient reportsmild. For duration, patient reports3 days. For modifying factors, patient reportsnothing gives relief.frequency and urgency x 3 day. denies any fever or fever with chills, denies any History of renal stone or bladder issues. Nausea UCReported by PatientHPIFor quality, patient reportsworsening. For onset/timing, patient reportsworse in the morningbut reportsgradual onset. For source of patient information, patient reportspatient arrived at urgent care ambulatory. For location, patient reportssuprapubic. For severity, patient reportsmild. For duration, patient reportspresent for 1 week. For context, patient reportsno drug/alcohol abuse,no one else with similar symptoms,no recent camping,no recent picnic,no possible food sources,no well water, andno foreign travel. For alleviating factors, patient reportsnothing helps. For associated symptoms, patient reportsno abdominal pain,no excess gas,no fever,no cholesterol issues,no diarrhea,no vomiting,no dry heaves,no heartburn,no fatigue,no weakness,no weight loss,no weight gain,no muscle aches,no muscle weakness,no nutrient deficiency, andno change in bowel/bladder habits.Patient has un-control diabetes. frequency and urgency x 3 day. denies any fever or fever with chills, denies any History of renal stone or bladder issues. Luis Pierce NP [address] [place], [address], PA - [facility] 11/07/2022 09:13:42 OBGyn Episode No OBEpisode recorded.
== END 2025-05-28 10:40 | disposition home or self-care (01) ==
PROVIDERS: PCP Internal Medicine; Visit Provider Physician Assistant Medical
DX: T50.905A Adverse effect of unspecified drugs, medicaments and biological substances, initial encounter (principal); M54.50 Low back pain, unspecified; M54.9 Dorsalgia, unspecified

== ENCOUNTER 2025-05-28 09:07 | Outpatient (REF) | payer MEDICARE, OTHER, SELFPAY ==
--- OUTSIDE RECORDS SUMMARY | 2024-02-04 10:00 | XMS_ITS ---
Author Organization [facility] Address [address] [place] [address] Care Team Providers Care Manager Creative Name Role Phone Corrine Spangler MD Primary Care Provider UnavailReese Pastor Unavailable [phone] Brittany Zepeda Unavailable [phone] REASON FOR VISIT Seen Sooner Encounters Encounter Location Date Provider Diagnosis [address] [address] 02/04/2024 Brittany Zepeda Plan Of Treatment Next Appt Details Provider Name:Reese Garcia , 07/24/2025 02:45:00 PM, [address] [place] [address], [phone], Progress Notes * Genie RAO EDOB:1 09/27/1939 (84 yo F)Acc No.[id number]:02/04/2024 Progress Note Patient: Genie BARRAZA Provider: Nickolas Zepeda DPM :1940 A ge:83 Y S ex:Female Date:02/04/2024 Address:[address] [place], [place] [id number] Pcp:Corrine Spangler MD Subjective: * Chief Complaints: [...] 0 02/04/2024 Generated for Mary Sarah on: 12:14 PM EDT
--- OUTSIDE RECORDS SUMMARY | 2024-06-20 06:45 | XMS_ITS ---
Author Organization [facility] Address [address] [place] [address] Care Team Providers Care Psychology Fellow Name Role Phone Corrine Spangler MD Primary Care Provider Reese Mancilla Unavailable [phone] Encounters Encounter Location Date Provider Diagnosis [address] [address] 06/20/2024 Reese Garcia Plan Of Treatment Next Appt Details Provider Name:Reese Garcia , 07/24/2025 02:45:00 PM, [address] [place] [address], [phone], Progress Notes * Genie RAO EDOB:1 09/27/1939 (84 yo F)Acc No.[id number]:06/20/2024 Progress Note Patient: Genie BARRAZA Provider: Hermelinda Garcia DPM :1940 A ge:83 Y S ex:Female Date:06/20/2024 Address:[address] [place], [place] [id number] Pcp:Corrine Spangler MD Subjective: * Chief Complaints: [...] Date: 08/20/2023 Generated for Mary quezada/Rupa/Eddie on: 12:13 PM EDT
--- OUTSIDE RECORDS SUMMARY | 2024-07-04 05:30 | XMS_ITS ---
Author Organization [facility] Address [address] [place] [address] Care Team Providers Care Rn Peritoneal Dialysis Name Role Phone Corrine Spangler MD Primary Care Provider UnavailReese Pastor Unavailable [phone] REASON FOR VISIT r/s for sooner apt Encounters Encounter Location Date Provider Diagnosis [address] [address] 07/04/2024 Reese Garcia Plan Of Treatment Next Appt Details Provider Name:Reese Garcia , 07/24/2025 02:45:00 PM, [address] [place] [address], [phone], Progress Notes * Genie RAO EDOB:1 09/27/1939 (84 yo F)Acc No.[id number]:07/04/2024 Progress Note Patient: Genie BARRAZA Provider: Hermelinda Garcia DPM :1940 A ge:83 Y S ex:Female Date:07/04/2024 Address:[facility] [place] Pcp:Corrine Spangler MD Subjective: * Chief Complaints: [...] Date: 09/04/2023 Generated for Mary Sarah on: 12:13 PM EDT
--- OUTSIDE RECORDS SUMMARY | 2025-02-16 09:45 | XMS_ITS ---
Author Organization [facility] Address [address] [place] [address] Care Team Providers Care Grain Packer Name Role Phone Corrine Spangler MD Primary Care Provider Reese Mancilla Unavailable [phone] Allergies Allergen (clinical drug ingredient) Drug/Non Drug [...] MG 2 tablets Orally Active Ozempic Active [place] 3 Active Encounters Encounter Location Date Provider Diagnosis [facility] [address] [address] 02/16/2025 Reese Garcia Plan Of Treatment Next Appt Details Provider Name:Reese Garcia , 07/24/2025 02:45:00 PM, [address] [place] [address], [address], Progress Notes * Genie RAO EDOB:1 09/27/1939 (84 yo F)Acc No.[id number]:02/16/2025 Progress Note Patient: Nilsa Genie CHANG Provider: Raquel Garcia DPM :1940 A ge:84 Y S ex:Female Date:02/16/2025 Address:[address] [place], [place] [phone] Pcp:Corrine Spangler MD Subjective: * Chief Complaints: * * Medical History: A rthritis, Asthma, Back,Hip,and Knee pain, Cancer, Cataracts, Diabetes mellitus type 2 , Gall bladder problems, High blood pressure, Polio, Chronic sinusitis, Measles, Mumps, Chicken pox, Transfusions, Reflux. * Medications: T kota Stuart , Taking Rib[place] 3 , Taking Albuterol , Taking dilTIAZem [...] 0 02/16/2025 Generated for Mary quezada/Caridad on: 12:13 PM EDT
--- OUTSIDE RECORDS SUMMARY | 2025-05-08 09:30 | XMS_ITS ---
Author Organization [facility] Address [address] [place] [address] Care Team Providers Care Inlayer Name Role Phone Corrine Spangler MD Primary Care Provider Reese Mancilla Unavailable [phone] Encounters Encounter Location Date Provider Diagnosis [address] [address] 05/08/2025 Reese Garcia Plan Of Treatment Next Appt Details Provider Name:Reese Garcia , 07/24/2025 02:45:00 PM, [address] [place] [address], [phone], Progress Notes * Genie RAO EDOB:1 09/27/1939 (84 yo F)Acc No.[id number]:05/08/2025 Progress Note Patient: Genie BARRAZA Provider: Hermelinda Garcia DPM :1940 A ge:84 Y S ex:Female Date:05/08/2025 Address:[address] [place], [place] [id number] Pcp:Corrine Spangler MD Subjective: * Chief Complaints: [...] Date: 1 Generated for Mary quezada/Caridad on: 12:12 PM EDT
--- OUTSIDE RECORDS SUMMARY | 2025-05-28 12:14 | XMS_ITS | Patient Health Record ---
Author Organization [facility] Address [address] [place] [address] Care Team Providers Care Childcare Director Name Role Phone Corrine Spangler MD Primary Care Provider Nishant Amaro [phone] Allergies Allergen (clinical drug ingredient) Drug/Non Drug [...] Problem Status W/U Status Risk Notes Problem Pancreatic cyst (18701552) Pancreatic cyst (K86.2) Active confirmed Problem Constipation (87085384) Constipation, unspecified constipation type (K59.00) Active confirmed Problem Left lower quadrant pain (015327013) Abdominal pain, left lower quadrant (R10.32) Active confirmed Problem Irritable bowel syndrome (41802089) Irritable bowel syndrome, unspecified type (K58.9) Active confirmed Problem Essential hypertension (21444020) Hypertension, unspecified type (I10) Active confirmed Plan Of Treatment No Information Insurance Providers Payer Name Payer Address Payer Phone Subscriber Number Group Number Insured Name Patient Relationship to Insured Coverage Start Date Coverage End Date MEDICARE OF [place] [address] [place] [address] [id number] HOOD CASTILLO Self - patient is the insured [facility] [address] [place] [address] [id number] HOOD CASTILLO Self - patient is the insured Medical (General) History Medical History History ICD Code Chronic diarrhea/IBS-colonos copy biopsies negative for colitis in 1994 and labs neg. for celiac disease in 2009 Colon polyps-tubular adenoma s removed in 1999 and 2009-colonoscopy was negative in 2004 except for AVM's NIDDM Hyperlipidemia Hypertension Breast [id number] lumpectomy with XRT UTI's Denies [place],CVA,renal disease Bronchitis Pancreatic cysts seen on MRI in 09/[address] scan in November of 2022 Asthma Surgical History Surgery Date(Month/Year) Cholecystectomy JOANA Rectovaginal fistula repair in 1994 Bladder suspension Veins in LE's Breast cancer as above
--- OUTSIDE RECORDS SUMMARY | 2025-05-28 12:14 | XMS_ITS | Patient Health Record ---
Author Organization [facility] Address [address] [place] [address] Care Team Providers Care Contract Agent Name Role Phone Corrine Spangler MD Primary Care Provider Reese Mancilla Unavailable [phone] Maritza Hazel Unavailable [phone] Allergies Allergen (clinical drug ingredient) Drug/Non Drug [...] Trulicity 3 MG/0.5ML as directed Subcutaneous Not-Taking [place] 3 Not-Taking Losartan Potassium 100 MG Orally [...] Problem Acquired hammer toe of right foot (0454685824472 105) Other hammer toe(s) (acquired), right foot (M20.41) Active confirmed Response to treatment,I mprovement Problem Type 2 diabetes mellitus with peripheral angiopathy (625939423) Type 2 diabetes mellitus with diabetic peripheral angiopathy without gangrene (E11.51) Active confirmed Q7(A), Q8(2B), Q9(1B,2C) Problem Acquired hammer toe of left foot (4673924275880 103) Other hammer toe(s) (acquired), left foot (M20.42) Active confirmed Response to treatment,I mprovement Vital Signs Blood pressure diastolic 60 mm Hg 04/10/2025 Height 5 ft 1 in in 04/10/2025 Blood pressure systolic 120 mm Hg 04/10/2025 Weight 142 lbs 04/10/2025 BMI 26.83 kg/m2 04/10/2025 Procedures Procedure Date Ordered Date Performed Result Body Sit e 26738-MHEYRAA NAIL, 6 OR MORE 06/07/2024 N/A 83766-NETK SKIN LESIONS, OVER 4 06/07/2024 N/A 34142-EEAYKOV NAIL, 6 OR MORE 08/22/2024 N/A 49129-UMHR SKIN LESIONS, OVER 4 08/22/2024 N/A 86606-IEQUTMO NAIL, 6 OR MORE 11/14/2024 N/A 61858-OCDV SKIN LESIONS, OVER 4 11/14/2024 N/A 94590-FGFCTDP NAIL, 6 OR MORE 04/10/2025 N/A 65611-HYLF SKIN LESIONS, OVER 4 04/10/2025 N/A Encounters Encounter Location Date Provider Diagnosis [facility] [place] [address] [place] [address] 06/07/2024 Maritza Smithaker Type 2 diabetes mellitus with diabetic peripheral angiopathy without gangrene E11.51 ; Tinea unguium B35.1 ; Pain in right toe(s) M79.674 and Pain in left toe(s) M79.[address] [address] 08/22/2024 Reese Garcia Type 2 diabetes mellitus with diabetic peripheral angiopathy without gangrene E11.51 ; Tinea unguium B35.1 ; Pain in right toe(s) M79.674 ; Pain in left toe(s) M79.675 ; Other hammer toe(s) (acquired), right foot M20.41 and Other hammer toe(s) (acquired), left foot M20.[address] [address] 11/14/2024 Reese Garcia Type 2 diabetes mellitus with diabetic peripheral angiopathy without gangrene E11.51 ; Tinea unguium B35.1 ; Pain in right toe(s) M79.674 and Pain in left toe(s) M79.[address] [address] 04/10/2025 eRese Garcia Type 2 diabetes mellitus with diabetic peripheral angiopathy without gangrene E11.51 ; Tinea unguium B35.1 ; Pain in right toe(s) M79.674 ; Pain in left toe(s) M79.675 ; Other hammer toe(s) (acquired), left foot M20.42 and Other hammer toe(s) (acquired), right foot M20.[address] [address] 02/15/2025 Reese Garcia Assessments Encounter Date Diagnosis [...] Test Name Order Date Hemoglobin A1c 09/03/2015 27555-HRGODLP NAIL, 6 OR MORE 12/06/2015 45723-WXNBXQX NAIL, 6 OR MORE 09/03/2015 19736-UJXXAXK NAIL, 6 OR MORE 03/10/2016 73119-NONTGSV NAIL, 6 OR MORE 06/09/2016 33373-MUCRDSQ NAIL, 6 OR MORE 09/01/2016 20871-MVEQTKS NAIL, 6 OR MORE 11/24/2016 67066-YEYCNEU NAIL, 6 OR MORE 04/18/2021 69336-SZARZVF NAIL, 6 OR MORE 07/04/2021 08734-ORBEEFX NAIL, 6 OR MORE 09/16/2021 26499-MONSVUJ NAIL, 6 OR MORE 02/16/2017 09314-THCYHPO NAIL, 6 OR MORE 04/27/2017 36020-FASCYCR NAIL, 6 OR MORE 07/20/2017 64488-XJFWKQF NAIL, 6 OR MORE 09/28/2017 64132-RYZSUBG NAIL, 6 OR MORE 11/30/2017 60408-UEQCWIL NAIL, 6 OR MORE 02/15/2018 14517-KXMIDEV NAIL, 6 OR MORE 05/10/2018 45069-IQKINXH NAIL, 6 OR MORE 08/19/2018 48858-ETOPZHV NAIL, 6 OR MORE 11/04/2018 30093-NJWQWDE NAIL, 6 OR MORE 01/24/2019 13169-MYPBTPP NAIL, 6 OR MORE 06/13/2019 49674-ECCVZNW NAIL, 6 OR MORE 08/22/2019 05424-UWIIVMH NAIL, 6 OR MORE 10/31/2019 46695-BAYEGNI NAIL, 6 OR MORE 01/09/2020 54100-NRSPCBU NAIL, 6 OR MORE 03/19/2020 94166-CWZAUHW NAIL, 6 OR MORE 06/21/2020 89659-CWKTLDJ NAIL, 6 OR MORE 08/30/2020 30906-MDBVJJS NAIL, 6 OR MORE 11/05/2020 95976-NRTZUQR NAIL, 6 OR MORE 01/10/2021 14151-JNSLYYN NAIL, 6 OR MORE 11/25/2021 97100-IZTNLTY NAIL, 6 OR MORE 01/30/2022 46727-TUMWXKT NAIL, 6 OR MORE 04/14/2022 23157-ZIEQJCU NAIL, 6 OR MORE 08/07/2022 42658-ZELFNCL NAIL, 6 OR MORE 10/16/2022 84368-BFGNRZQ NAIL, 6 OR MORE 01/05/2023 78205-ZYRAOZN NAIL, 6 OR MORE 03/16/2023 05301-RLXXEAE NAIL, 6 OR MORE 05/25/2023 58399-LVMYHLM NAIL, 6 OR MORE 08/06/2023 68870-YDQUOVC NAIL, 6 OR MORE 10/19/2023 30524-DMYGQTC NAIL, 6 OR MORE 03/21/2024 18342-SOZTIWR NAIL, 6 OR MORE 06/07/2024 92689-UCIXUXA NAIL, 6 OR MORE 08/22/2024 32428-XGAXCCC NAIL, 6 OR MORE 11/14/2024 66684-WQAFRXF NAIL, 6 OR MORE 04/10/2025 19341-Gskyjpgm Plate 01/10/2021 45330-Cdyuzmpm Plate 11/24/2016 37217-Kgxuekcd Plate 09/01/2016 78371-Pmbcvscu Plate 06/09/2016 37297-Ferngmlc Plate 03/10/2016 41143-Hfkyozuy Plate 09/03/2015 34086-Jzcuagxw Plate 12/06/2015 84274-KLDX SKIN LESIONS, OVER 4 04/10/20 25 21775-JWJF SKIN LESIONS, OVER 4 11/15/19 25 33541-WHGE SKIN LESIONS, OVER 4 08/22/19 25 22565-MPYC SKIN LESIONS, OVER 4 06/07/20 24 25592-HDLJ SKIN LESIONS, OVER 4 10/19/19 24 95155-AAFS SKIN LESIONS, OVER 4 03/21/20 24 24521-IRRV SKIN LESIONS, OVER 4 08/06/19 24 59491-CRLU SKIN LESIONS, OVER 4 05/25/20 23 75267-MKGM SKIN LESIONS, OVER 4 03/16/20 23 06445-EEBY SKIN LESIONS, 2 TO 4 01/06/20 23 73262-XHGM SKIN LESIONS, 2 TO 4 10/17/19 11305-ACYD SKIN LESIONS, 2 TO 4 08/07/19 67361-AXOJ SKIN LESIONS, 2 TO 4 04/14/20 59440-KQVV SKIN LESIONS, 2 TO 4 01/31/20 68484-QPIE SKIN LESIONS, 2 TO 4 11/26/19 55251-IWXG SKIN LESIONS, 2 TO 4 09/16/19 53120-ZAYS SKIN LESIONS, 2 TO 4 07/04/20 Next Appt Details Provider Name:Reese Garcia , 07/24/2025 02:45:00 PM, [address] [facility] [facility], [place], [address], Insurance Providers Payer Name Payer Address Payer Phone Subscriber Number Group Number Insured Name Patient Relationship to Insured Coverage Start Date Coverage End Date Medicare [facility] [employer] [address] [place] [address] [id number] Prince rexGenie Self - patient is the insured [address] [place] [address] [place] [id number] [phone] [id number] Genie Escalera Self - patient is the insured Medical (General) History Medical History History ICD Code Arthritis Asthma Back,Hip,and Knee pain Cancer Cataracts Diabetes mellitus type 2 Gall bladder problems High blood pressure Polio chronic sinusitis Measles Mumps Chicken pox Transfusions Reflux Surgical History Surgery Date(Month/Year) gall bladder 1967 breast surgery hysterectomy bladder suspension vein surgery (LT leg) right carpal tunnel [facility] 05/04/2018 hand surgery- trigger finger right 2020 sx underarm 12/15/21 Hospitalization History Reason Date(Month/Year) [facility]- back ache 03/26 [facility]-Coronavirus symptoms- not tested- said asthma and allergies 10/24/2019 [facility]- ER for coughing- lesion found in samuel ngs 09/13/2017 pneumonia 11/24-11/26/15
== END 2025-05-28 09:08 | disposition home or self-care (01) ==
LOC: HO.LAB 09:07
PROVIDERS: PCP Internal Medicine
DX: N64.4 Mastodynia (principal); R51.9 Headache, unspecified; M54.50 Low back pain, unspecified; T38.5X5A Adverse effect of other estrogens and progestogens, initial encounter; R10.30 Lower abdominal pain, unspecified
CPT/HCPCS: 81003; 87086; 99212

== ENCOUNTER 2025-06-22 12:49 | Outpatient (REF) | payer MEDICARE, OTHER, SELFPAY ==
--- OUTSIDE RECORDS SUMMARY | 2024-02-04 09:00 | XMS_ITS ---
Author Organization [facility] Address [address] [place] [address] Care Team Providers Care Shoe Ironer Name Role Phone Corrine Spangler MD Primary Care Provider UnavailReese Pastor Unavailable [phone] Brittany Zepeda Unavailable [phone] REASON FOR VISIT Seen Sooner Encounters Encounter Location Date Provider Diagnosis [address] [address] 02/04/2024 Brittany Zepeda Plan Of Treatment Next Appt Details Provider Name:Reese Garcia , 07/24/2025 02:45:00 PM, [address] [place] [address], [phone], Progress Notes * Genie RAO EDOB:1 09/27/1939 (84 yo F)Acc No.[id number]:02/04/2024 Progress Note Patient: Genie BARRAZA Provider: Nickolas Zepeda DPM :1940 A ge:83 Y S ex:Female Date:02/04/2024 Address:[facility] [id number] Pcp:Corrine Spangler MD Subjective: * Chief Complaints: * 1 . Seen Sooner. * Medical History: Objective: * Vitals: Assessment: Plan: * Treatment: * Images: * The named appointment provid er may or may not be the originator of this progress note, and it is not deemed complete until electronically signed by the appointment provider. Sign off status: Pending * Provider: Nickolas Zepeda DPM Date: 0 02/04/2024 Generated for Mary Sarah on: 08/22/2024 01:11 PM EST
--- OUTSIDE RECORDS SUMMARY | 2024-06-20 05:45 | XMS_ITS ---
Author Organization [facility] Address [address] [place] [address] Care Team Providers Care Manager Social Media Name Role Phone Corrine Spangler MD Primary Care Provider Reese Mancilla Unavailable [phone] Encounters Encounter Location Date Provider Diagnosis [address] [address] 06/20/2024 Reese Garcia Plan Of Treatment Next Appt Details Provider Name:Reese Garcia , 07/24/2025 02:45:00 PM, [address] [place] [address], [phone], Progress Notes * Genie RAO EDOB:1 09/27/1939 (84 yo F)Acc No.[id number]:06/20/2024 Progress Note Patient: Genie BARRAZA Provider: Hermelinda Garcia DPM :1940 A ge:83 Y S ex:Female Date:06/20/2024 Address:[address] [place], [place] [id number] Pcp:Corrine Spangler MD Subjective: * Chief Complaints: * * Medical History: Objective: * Vitals: Assessment: Plan: * Treatment: * Images: * The named appointment provid er may or may not be the originator of this progress note, and it is not deemed complete until electronically signed by the appointment provider. Sign off status: Pending * Provider: Hermelinda Garcia DPM Date: 08/20/2023 Generated for Mary quezada/Rupa/Eddie on: 08/22/2024 01:10 PM EST
--- OUTSIDE RECORDS SUMMARY | 2024-07-04 04:30 | XMS_ITS ---
Author Organization [facility] Address [address] [place] [address] Care Team Providers Care Nascar Driver Name Role Phone Corrine Spangler MD Primary Care Provider UnavailReese Pastor Unavailable [phone] REASON FOR VISIT r/s for sooner apt Encounters Encounter Location Date Provider Diagnosis [address] [address] 07/04/2024 Reese Garcia Plan Of Treatment Next Appt Details Provider Name:Reese Garcia , 07/24/2025 02:45:00 PM, [address] [place] [address], [phone], Progress Notes * Genie RAO EDOB:1 09/27/1939 (84 yo F)Acc No.[id number]:07/04/2024 Progress Note Patient: Genie BARRAZA Provider: Hermelinda Garcia DPM :1940 A ge:83 Y S ex:Female Date:07/04/2024 Address:[facility] [id number] Pcp:Corrine Spangler MD Subjective: * Chief Complaints: * 1 . R/s for sooner apt. * Medical History: Objective: * Vitals: Assessment: Plan: * Treatment: * Images: * The named appointment provid er may or may not be the originator of this progress note, and it is not deemed complete until electronically signed by the appointment provider. Sign off status: Pending * Provider: Hermelinda Garcia DPM Date: 09/04/2023 Generated for Mary Sarah on: 08/22/2024 01:09 PM EST
--- OUTSIDE RECORDS SUMMARY | 2025-02-16 08:45 | XMS_ITS ---
Author Organization [facility] Address [address] [place] [address] Care Team Providers Care Inside Sales Supervisor Name Role Phone Corrine Spangler MD Primary Care Provider Reese Mancilla Unavailable [phone] Allergies Allergen (clinical drug ingredient) Drug/Non Drug [...] MG 2 tablets Orally Active Ozempic Active [place] 3 Active Encounters Encounter Location Date Provider Diagnosis [facility] [address] [address] 02/16/2025 Reese Garcia Plan Of Treatment Next Appt Details Provider Name:Reese Garcia , 07/24/2025 02:45:00 PM, [address] [place] [address], [phone], Progress Notes * Genie RAO EDOB:1 09/27/1939 (84 yo F)Acc No.[id number]:02/16/2025 Progress Note Patient: Nilsa Genie CHANG Provider: Raquel Garcia DPM :1940 A ge:84 Y S ex:Female Date:02/16/2025 Address:[address] [place], [place] [id number] Pcp:Corrine Spangler MD Subjective: * Chief Complaints: * * Medical History: A rthritis, Asthma, Back,Hip,and Knee pain, Cancer, Cataracts, Diabetes mellitus type 2 , Gall bladder problems, High blood pressure, Polio, Chronic sinusitis, Measles, Mumps, Chicken pox, Transfusions, Reflux. * Medications: T kota Stuart , Taking [place] 3 , Taking Albuterol , Taking dilTIAZem [...] 0 02/16/2025 Generated for Mary Sarah on: 08/22/2024 01:10 PM EST
--- OUTSIDE RECORDS SUMMARY | 2025-05-08 08:30 | XMS_ITS ---
Author Organization [facility] Address [address] [place] [address] Care Team Providers Care Hydrometallurgical Engineer Name Role Phone Corrine Spangler MD Primary Care Provider Reese Mancilla Unavailable [phone] Encounters Encounter Location Date Provider Diagnosis [address] [address] 05/08/2025 Reese Garcia Plan Of Treatment Next Appt Details Provider Name:Reese Garcia , 07/24/2025 02:45:00 PM, [address] [place] [address], [phone], Progress Notes * Genie RAO EDOB:1 09/27/1939 (84 yo F)Acc No.[id number]:05/08/2025 Progress Note Patient: Genie BARRAZA Provider: Hermelinda Garcia DPM :1940 A ge:84 Y S ex:Female Date:05/08/2025 Address:[address] [place], [place] [id number] Pcp:Corrine Spangler MD Subjective: * Chief Complaints: [...] Date: 1 Generated for Mary quezada/Caridad on: 08/22/2024 01:09 PM EST
--- NOTE | ~2025-06-22 | MM_ITS ---
EXAMINATION: DXA BONE DENSITY AXIAL HISTORY: M81.0 - Age-related osteoporosis without current pathological fracture TECHNIQUE: [employer] Dual energy absorptiometry (DEXA) of the lumbar spine, total left hip, and femoral neck was performed. COMPARISON: Comparison is made with the prior examination dated 03/16/2023. FINDINGS: The bone mineral density of the lumbar spine is 0.873 g/cm2, corresponding to a T-score of -2.4, and a Z-score of -0.5. This is indicative of osteopenia. This represents a BMD change of -11.4% compared to the prior exam. This is statistically significant. The bone mineral density of the left total hip is 0.691 g/cm2, corresponding to a T-score of -2.5, and a Z-score of -0.1. This is indicative of osteoporosis. This represents a BMD change of 26.8% compared to the prior exam. This is statistically significant. The bone mineral density of the left femoral neck is 0.686 g/cm2, corresponding to a T-score of -2.5, and a Z-score of -0.1. This is indicative of osteoporosis. This represents a BMD change of 37.8% compared to the prior exam. FRACTURE RISK: The FRAX index suggests a ten year probability of major osteoporotic fracture of 17.4%, and of hip fracture 6.4%. MM/XR DEXA axial skeleton IMPRESSION: Based on bone mineral density, and according to World Health Organization (WHO) criteria, the diagnosis is consistent with osteoporosis. Statistically, 68% of repeat scans fall within 1 SD (+/- 0.010 g/cm2 for AP spine L1-L4) and 1 SD (+/- 0.012 g/cm2 for femur total) FRAX is a trademark of the [employer] Met[employer], a World Health Organization (WHO) Collaborating Center. Electronically signed by: Nishant Seay MD 06/22/2025 01:31 PM [facility]
--- OUTSIDE RECORDS SUMMARY | 2025-06-22 13:10 | XMS_ITS | Encounter Summary ---
Author Organization [facility] Address [address] [place] [address] Care Team Providers Care Patient Care Technician Name Role Phone Corrine Spangler MD Primary Care Provider [phone] Encounter Details Date Type Department Care Team (Late st Contact Info) Description 02/23/2025 Lab Requisition [facility] - Main Lab [address] [facility] [place] [address] Mamadou Schmid, EMIL [address] [place], [place] [id number] Urinary tract infection, site not specified Social [...] cloacae complex(A) [place] 02/25/2025 10:20 AM EDT [facility] Comment: This is an edited [...] complex Trimethoprim/Sulfamethoxazo le [place] <=20 ug/ml: Susceptible [facility] - [facility] Final Result [facility] ([facility]) [facility] [address] [place] [address], documented in this encounter Visit Diagnoses Diagnosis Urinary tract infection, site not specified documented in this encounter Care Teams Patient Care Technician Relationship Specialty Start Date End Date Corrine Spangler MD [address] [place] [address] PCP - General Internal Medicine 02/23/25 documented as of this encounter
--- OUTSIDE RECORDS SUMMARY | 2025-06-22 13:10 | XMS_ITS | Data Portability ---
Author Organization [facility] Form[facility], [address] Address [address] [place] [address] Care Team Providers Care Paint Stock Clerk Name Role Phone [facility] Primary Care Provider [facility] UROLOGY OTHER [phone] Assessment No assessment recorded. Plan of Treatment Reminders Order Date Submit Date Provider Last Modified By Organization Details Last Modified Time Details Appointments None recorded. Lab urinalysis , dipstick 2022 023 [facility], [address] [place] [address], [phone], 3 09:13:00 glucose, fingerstic k, blood 2022 023 [facility] _[facility], [address] [place] [address], [phone], 3 09:13:00 culture, urine 2022 023 [facility], [address] [place] [address], [place], [address], 3 16:06:30 Referral None recorded. Procedures None recorded. Surgeries None recorded. Imaging None recorded. Medication Orders Macrobid 100 mg capsule 2022 023 [id number], [address] [place], [address], 3 09:13:03 Patient TargetsNo targets recorded. Patient Instructions Encounter Date Encounter Id Patient Instructions Last Modified By Organization Details Last Modified Time 11/07/2022 [id number] nausea and vomiting: care instructions Not available [...] to have routine doctor appointments with their hand hose cutter and/or primary care provider to examine or [...] green veggies (e.g., broccoli, spinach, brussels sprouts) [place] veggies (e.g., carrots, sweet potatoes, pumpkin, [...] calluses are present, ask a doctor or used equipment sales representative about the best way to care for [...] routine FINAL REPORT abnormal Not Available [facility] ([facility]) [address] [place], [address], 11/14/2022 08:07:39 11/08/1911/14/2022 URINE CULTU RE, ROUTI NE result 1 ENTERO BACTER SPECIE S abnormal 50,00 0-100 ,000 colon y formi ng units per mL Not Available [facility] ([facility]) [address], [place], [address], 11/14/2022 08:07:39 11/08/1911/14/2022 URINE CULTU RE, ROUTI [...] thopr im/Lopez lfa S Not Available [facility] ([facility]) [address], [place], [address], 11/14/2022 08:07:39 11/08/1911/07/2022 gluco se, finge rstic k, blood blood sugar - non fasting 221 mg/dL 80-140 = normal Not Available [address], [place], [address], 11/07/2022 08:38:45 11/08/19 23 11/07/2022 gluco se, finge rstic k, blood blood sugar - fasting mg/dL 80-125 = normal Not Available [address], [place], [address], 11/07/2022 08:38:45 11/08/19 23 11/07/2022 urina lysis , dipst ick Unknown Analyte Normal = light yellow Not Available [address], [place], [address], 11/07/2022 08:31:12 11/08/19 23 11/07/2022 urina lysis , dipst ick Unknown Analyte Yellow Not Available [address], [place], [address], 11/07/2022 08:31:12 11/08/19 23 11/07/2022 urina lysis , dipst ick Unknown Analyte Normal = clear Not Available [address], [place], [address], 11/07/2022 08:31:12 11/08/19 23 11/07/2022 urina lysis , dipst ick Unknown Analyte Clear Not Available [address], [place], [address], 11/07/2022 08:31:12 04/08/11/07/2022 urina lysis , dipst ick Unknown Analyte Normal = negati ve Not Available pete blankenship [address], [place], [address], 11/07/2022 08:31:12 11/08/19 23 11/07/2022 urina lysis , dipst ick Unknown Analyte 250 mg/dL Not Available pete blankenship [address], [place], [address], 11/07/2022 08:31:12 11/08/19 23 11/07/2022 urina lysis , dipst ick Unknown Analyte Normal = Negati ve Not Available pete blankenship [address], [place], [address], 11/07/2022 08:31:12 11/08/19 23 11/07/2022 urina lysis , dipst ick Unknown Analyte Negati ve Not Available pete blankenship [address], [place], [address], 11/07/2022 08:31:12 11/08/19 23 11/07/2022 urina lysis , dipst ick Unknown Analyte Normal = Negati ve Not Available pete blankenship [address], [place], [address], 11/07/2022 08:31:12 11/08/19 23 11/07/2022 urina lysis , dipst ick Unknown Analyte Negati ve Not Available pete blankenship [address], [place], [place], [address], 11/07/2022 08:31:12 11/08/19 23 11/07/2022 urina lysis , dipst ick Unknown Analyte Normal = 1.010, 1.015, 1.020 Not Available pete blankenship [address], [place], [place], [address], 11/07/2022 08:31:12 11/08/19 23 11/07/2022 urina lysis , dipst ick Unknown Analyte 1.030 Not Available [facility] [address], [place], [address], 11/07/2022 08:31:12 11/08/19 23 11/07/2022 urina lysis , dipst ick Unknown Analyte Normal = Negati ve Not Available pete blankenship [address], [place], [address], 11/07/2022 08:31:12 11/08/19 23 11/07/2022 urina lysis , dipst ick Unknown Analyte Trace- intact Not Available [facility] [address], [place], [address], 11/07/2022 08:31:12 11/08/19 23 11/07/2022 urina lysis , dipst ick Unknown Analyte Normal = 6.5, 7.0, 7.5, 8.0 Not Available [facility] [address], [place], [address], 11/07/2022 08:31:12 11/08/19 23 11/07/2022 urina lysis , dipst ick Unknown Analyte 5.5 Not Available [address], [place], [address], 11/07/2022 08:31:12 11/08/19 23 11/07/2022 urina lysis , dipst ick Unknown Analyte Normal = Negati ve Not Available [address], [place], [address], 11/07/2022 08:31:12 11/08/19 23 11/07/2022 urina lysis , dipst ick Unknown Analyte 30 mg/dL Not Available pete blankenship [address], [place], [address], 11/07/2022 08:31:12 11/08/1911/07/2022 urina lysis , dipst ick Unknown Analyte Normal = 0.2, 1.0 Not Available [address] [place] [address], [place], [address], 11/07/2022 08:31:12 11/08/19 23 11/07/2022 urina lysis , dipst ick Unknown Analyte 0.2 E.U./d L Not Available [facility] [address], [place], [address], 11/07/2022 08:31:12 11/08/19 23 11/07/2022 urina lysis , dipst ick Unknown Analyte Normal = Negati ve Not Available [address], [place], [address], 11/07/2022 08:31:12 11/08/1911/07/2022 urina lysis , dipst ick Unknown Analyte Negati ve Not Available [address] [place] [address], [place], [address], 11/07/2022 08:31:12 11/08/19 23 11/07/2022 urina lysis , dipst ick Unknown Analyte Normal = Negati ve Not Available [facility] [address], [place], [address], 11/07/2022 08:31:12 11/08/19 23 11/07/2022 urina lysis , dipst ick Unknown Analyte Small Not Available [address] [place] [address], [place], [address], 11/07/2022 08:31:12 Result Notes None recorded. Problems Name Problem SNOMED Code Status Onset Date Resolution Date Notes Provider Name and Address Organization Details Recorded Time Diabetes mellitus 54028613 Active 2022 OLIVIA DEPINTO null, PA - [facility] 3 08:21:08 Osteoporosi s 58216915 Active 2022 OLIVIA DEPINTO null, PA - [facility] 3 08:21:27 Gastroesoph ageal reflux disease 845197120 Active 2022 OLIVIA DEPINTO null, PA - [facility] 3 08:21:32 Hypertensiv e disorder 37162014 Active 2022 OLIVIA DEPINTO null, PA - [facility] 3 08:21:37 Asthma 716729117 Active 2022 OLIVIA DEPINTO null, PA - [facility] 3 08:21:49 Malignant neoplasm of breast 575015581 Completed 202211/07/20222003 OLIVIA DEPINTO null, PA - [...] Name and Address Organization Details Recorded Time 481261 hydrochlo rothiazid e medicatio n diarrhea Not available Not available 11/07/2022 5487 RxNorm OLIVIA DEPINTO null, PA - [facility] 3 08:18:50 128300 pravastat in medicatio n diarrhea Not available Not available 11/07/2022 34776 RxNorm OLIVIA DEPINTO null, PA - [facility] 3 08:19:10 539141 metformin medicatio n diarrhea Not available Not available 11/07/2022 6809 RxNorm OLIVIA DEPINTO null, PA - [facility] 3 08:19:19 838534 ciproflox acin medicatio n diarrhea Not available Not available 11/07/2022 2551 RxNorm OLIVIA DEPINTO null, PA - [facility] 3 08:19:43 581349 alendrona te sodium medicatio n diarrhea Not available Not available 11/07/2022 04931 2 RxNorm OLIVIA DEPINTO null, PA - [facility] 3 08:19:52 279293 Farxiga medicatio n diarrhea Not available Not available 11/07/2022 36489 72 RxNorm OLIVIA DEPINTO null, PA - [...] Reported Respiratory rate Body temperature Oxygen saturation Heart rate Systolic And Diastolic Provider Name and Address Organization Details Last Updated DateTime 3 154.94 cm 27 kg/m2 79252.7 1 g 0 18 /min 97.2 [degF] 96 % 75 /min 151/73 mm[Hg] OLIVIA KAHN PA - [facility] 3 08:27:08 Social History Question Answer Notes LastModified by AFTER-MOUSE Details LastModified Time Tobacco Smoking Status Never Smoker OLIVIA vergara PA - [facility] 11/07/2022 08:22:09 Have You Recently Traveled Abroad? No Information not available 11/07/2022 Sex: Unknown Functional Status Question Answer Note LastModified by AFTER-MOUSE Details LastModified Time Do you use any [...] [facility] 11/07/2022 08:16:22 Pneumococcal conjugate PCV20, polysaccharide OAD910 conjugate, adjuvant, PF 3 completed OLIVIA DEPINTO [...] ICD10 Code Diagnosis IMO Codes Diagnosis Note [id number] [address] [place] [address] 05/01/2018 11:10:17 05/01/2018 12:08:27 [id number] [address] [place] [address] 07/04/2018 08:22:27 07/04/2018 08:50:56 [id number] [address] [place] [address] 10/16/2016 13:39:10 10/16/2016 15:34:24 [id number] [address] [place] [address] 10/16/2018 08:16:49 10/16/2018 09:03:27 [id number] [address] [place] [address] 12/05/2016 08:05:07 12/05/2016 09:01:39 [id number] [address] [place] [address] 08/09/2017 08:51:37 08/09/2017 09:35:02 [id number] [address] [place] [address] 08/06/2015 10:01:18 08/06/2015 11:48:14 [id number] [address] [place] [address] 09/15/2016 10:47:05 09/15/2016 12:43:09 [id number] [address] [place] [address] 10/19/2016 14:20:17 10/19/2016 16:00:31 [id number] Luis Pierce, COPY SUPERVISOR [address] [place] [address] 11/07/2022 08:06:50 11/07/2022 09:16:29 Acute urinary tract infection 288012490 N39.0 Diabetes m ellitus screening 560727405 Z13.1 Type 2 lois betes mellitus 35671120 E11.22 Health Concerns Section Related Observation LastModified by Organization Detai ls LastModified Time None Recorded Concern Status LastModified by Organization Details LastModified Time None Recorded Advance Directives Directive None Recorded Payers Insurance Date Sequence Insurance Name Policy Number Policy Mercedes Covered Member ID Mercedes Member ID Guarantor Name 11/07/2022 1 [place]: [employer] Genie Harrington [id number] Genie [place] 11/07/2022 2 [facility] Genie Grimes-Devin kim [id number] Genie Harrington Notes Date Note Type [...] Pierce NP [address] [place], [address], [place] - [facility] 11/07/2022 09:13:42 OBGyn Episode No OBEpisode recorded.
--- OUTSIDE RECORDS SUMMARY | 2025-06-22 13:10 | XMS_ITS | Clinical Summary ---
Author Organization [address] [facility] Address [address] [place] [address] Phone Care Team Providers Care Supervisor Wet End Name Role Phone Corrine Spangler MD Primary Care Provider [phone] Allergies Active Allergy Reactions Criticality Noted Date Comments Ciprofloxacin 04/18/2025 Hydrochlorothiazide 04/18/2025 Levofloxacin 04/18/2025 Lidocaine 04/18/2025 Metformin 04/18/2025 Pravastatin 04/18/2025 Simvastatin 04/18/2025 Sulfa (Sulfonamide Antibiotics) GI intolerance 04/18/2025 Encounters Date Type Department Care Team Description 04/18/2025 7:31 AM EDT - 04/18/2025 4:50 PM EDT Emergency [facility] Emergency [address] [place] [address] Dolores Tong DO Cystitis (Primary [...] and culture (04/18/2025 8:33 AM EDT) Specific [place] Urine 1.020 1.003 - 1.030 LAB URINALYSIS - AUTOMATED METHOD 04/18/2025 9:31 AM [facility] pH, Urine 5.5 5.0 - 8.0 pH LAB URINALYSIS - AUTOMATED METHOD 04/18/2025 9:31 AM [facility] Leukocytes, Urine Large(A) Negative LAB URINALYSIS - AUTOMATED METHOD 04/18/2025 9:31 AM [facility] Nitrite, Urine Positive(A) Negative LAB URINALYSIS - AUTOMATED METHOD 04/18/2025 9:31 AM [facility] Protein, Urine 100(A) <=Trace mg/dL LAB URINALYSIS - AUTOMATED METHOD 04/18/2025 9:31 AM [facility] Glucose, Urine 100(A) Negative mg/dL LAB URINALYSIS - AUTOMATED METHOD 04/18/2025 9:31 AM [facility] Ketones, Urine Negative Negative mg/dL LAB URINALYSIS - AUTOMATED METHOD 04/18/2025 9:31 AM [facility] Urobilinogen , Urine 0.2 0.2 - 1.0 mg/dL LAB URINALYSIS - AUTOMATED METHOD 04/18/2025 9:31 AM [facility] Bilirubin, Urine Negative Negative LAB URINALYSIS - AUTOMATED METHOD 04/18/2025 9:31 AM [facility] Blood, Urine Moderate(A) Negative LAB URINALYSIS - AUTOMATED METHOD 04/18/2025 9:31 AM [facility] RBC, Urine 44.8(H) 0 - 4 /HPF LAB URINALYSIS - AUTOMATED METHOD 04/18/2025 9:31 AM [facility] WBC, Urine 1,526.1(H) 0 - 4 /HPF LAB URINALYSIS - AUTOMATED METHOD 04/18/2025 9:31 AM [facility] Squamous Epithelial, Urine 28 0 - 60 /LPF LAB URINALYSIS - AUTOMATED METHOD 04/18/2025 9:31 AM [facility] Bacteria, Urine Many(A) Negative /HPF LAB URINALYSIS - AUTOMATED METHOD 04/18/2025 9:31 AM [facility] Hyaline Casts, Urine 0.6 0 - 3 /LPF LAB URINALYSIS - AUTOMATED METHOD 04/18/2025 9:31 AM [facility] Yeast, Urine Present(A) None /HPF LAB URINALYSIS - AUTOMATED METHOD 04/18/2025 9:31 AM [facility] Urine Urine specimen obtained by clean catch procedure / Unknown Non-blood Collection / Unknown 04/18/2025 8:33 AM EDT 04/18/2025 9:00 AM EDT Mayra STEIN LAB URINE ORDERABLES Final R esult Performing Organization Address [facility]/ZIP Co de Phone Number [facility] [address] [place] [address], [place] [phone] * León urine culture tube (04/18/2025 8:33 AM EDT) Extra Tube Hold for add-ons. 04/18/2025 10:01 AM EDT [facility] Comment:Auto resulted. Urine Urine specimen obtained by clean catch procedure / Unknown Non-blood Collection / Unknown 04/18/2025 8:33 AM EDT 04/18/2025 9:00 AM EDT [facility] [place] [facility] URINE ORDERABLES Final R esult Performing Organization Address [facility] Co de Phone Number [facility] [address] [place] [address], [place] [phone] * (ABNORMAL) Culture urine (04/18/2025 8:33 AM EDT) Pathologist [facility] Culture, Urine 50,000-100,000 CFU/mL Enterobacter cloacae complex(A) [place] 04/20/2025 8:20 AM EDT [facility] Comment: This is an [...] MICROBIOLOGY - GENERAL O RDERABLES Final Result [facility] [address] [place] [address], * (ABNORMAL) CBC auto differential (04/18/2025 8:05 AM EDT) WBC 6.9 4.8 - 10.8 K/mcL LAB HEMETOLOGY METHOD 04/18/2025 8:31 AM EDT [facility] RBC 3.90 3.80 - 4.80 M/mcL LAB HEMETOLOGY METHOD 04/18/2025 8:31 AM EDT [facility] Hemoglobin 11.5 11.5 - 16.0 g/dL LAB HEMETOLOGY METHOD 04/18/2025 8:31 AM EDT [facility] Hematocrit 35.4 35.0 - 47.0 % LAB HEMETOLOGY METHOD 04/18/2025 8:31 AM EDT [facility] MCV 89.8 79.0 - 98.0 FL LAB HEMETOLOGY METHOD 04/18/2025 8:31 AM EDT [facility] MCH 29.2 27.0 - 32.0 pcg LAB HEMETOLOGY METHOD 04/18/2025 8:31 AM EDT [facility] MCHC 32.5 32.0 - 37.0 g/dL LAB HEMETOLOGY METHOD 04/18/2025 8:31 AM [facility] RDW 13.7 11.0 - 15.0 % LAB HEMETOLOGY METHOD 04/18/2025 8:31 AM [facility] Platelets 165 130 - 400 K/mcL LAB HEMETOLOGY METHOD 04/18/2025 8:31 AM [facility] MPV 9.8 7.0 - 11.0 FL LAB HEMETOLOGY METHOD 04/18/2025 8:31 AM [facility] NRBC 0.0 <1.0 % LAB HEMETOLOGY METHOD 04/18/2025 8:31 AM [facility] NRBC Absolute 0.00 <0.10 K/mcL LAB HEMETOLOGY METHOD 04/18/2025 8:31 AM [facility] Neutrophils Relative 74.7 % LAB HEMETOLOGY METHOD 04/18/2025 8:31 AM [facility] Lymphocytes Relative 12.1 % LAB HEMETOLOGY METHOD 04/18/2025 8:31 AM [facility] Monocytes Relative 9.7 % LAB HEMETOLOGY METHOD 04/18/2025 8:31 AM [facility] Eosinophils Relative 2.5 % LAB HEMETOLOGY METHOD 04/18/2025 8:31 AM [facility] Basophils Relative 0.6 % LAB HEMETOLOGY METHOD 04/18/2025 8:31 AM [facility] Immature Granulocytes Relative 0.4 % LAB HEMETOLOGY METHOD 04/18/2025 8:31 AM [facility] Neutrophils Absolute 5.17 1.50 - 7.00 K/mcL LAB HEMETOLOGY METHOD 04/18/2025 8:31 AM [facility] Lymphocytes Absolute 0.84(L) 1.00 - 5.00 K/mcL LAB HEMETOLOGY METHOD 04/18/2025 8:31 AM EDT [facility] Monocytes Absolute 0.67 0.20 - 1.00 K/[facility] LAB HEMETOLOGY METHOD 04/18/2025 8:31 AM EDT [facility] Eosinophils Absolute 0.17 0.00 - 0.50 K/[facility] LAB HEMETOLOGY METHOD 04/18/2025 8:31 AM EDT [facility] Basophils Absolute 0.04 0.00 - 0.20 K/[facility] LAB HEMETOLOGY METHOD 04/18/2025 8:31 AM EDT [facility] Immature Granulocytes Absolute 0.03 0.00 - 0.03 K/[facility] LAB HEMETOLOGY METHOD 04/18/2025 8:31 AM EDT [facility] Blood Venous blood specimen / Unknown Venipuncture / Unknown 04/18/2025 8:05 AM EDT 04/18/2025 8:18 AM EDT us Mayra STEIN LAB BLOOD ORDERABLES Final R esult Performing Organization Address City/State/[facility] Co de Phone Number [facility] [address] [place] [address], * Type and screen (04/18/2025 8:05 AM EDT) ABO Group A 04/18/2025 10:06 AM EDT [facility] Rh Type Positive 04/18/2025 10:06 AM EDT [facility] Antibody Screen Negative 04/18/2025 10:06 AM EDT [facility] Blood Venous blood specimen / Unknown Venipuncture / Unknown 04/18/2025 8:05 AM EDT 04/18/2025 8:18 AM EDT us Mayra STEIN LAB BLOOD BANK TEST ORDERABL ES Final Result [facility] [address] [place] [address], * (ABNORMAL) Basic metabolic panel (04/18/2025 8:05 AM EDT) Sodium 138 133 - 145 mmol/L LAB CHEMISTRY METHOD 04/18/2025 8:46 AM [facility] Potassium 3.7 3.5 - 5.5 mmol/L LAB CHEMISTRY METHOD 04/18/2025 8:46 AM [facility] Chloride 106 96 - 110 mmol/L LAB CHEMISTRY METHOD 04/18/2025 8:46 AM [facility] CO2 26 21 - 32 mmol/L LAB CHEMISTRY METHOD 04/18/2025 8:46 AM [facility] Anion Gap 6 3 - 11 LAB CHEMISTRY METHOD 04/18/2025 8:46 AM [facility] Glucose 240(H) 70 - 100 mg/dL LAB CHEMISTRY METHOD 04/18/2025 8:46 AM [facility] BUN 18 5 - 25 mg/dL LAB CHEMISTRY METHOD 04/18/2025 8:46 AM [facility] Creatinine 0.70 0.50 - 1.10 mg/dL LAB CHEMISTRY METHOD 04/18/2025 8:46 AM [facility] eGFR 84 >=60 mL/min/1. 73m2 LAB CHEMISTRY METHOD 04/18/2025 8:46 AM [facility] Comment:Calculation based on the Chronic Kidney Disease Epidemiology Collaboration (CKD-EPI) equation refit without adjustment for race. BUN/Creatinine Ratio 25.7 LAB CHEMISTRY METHOD 04/18/2025 8:46 AM [facility] Calcium 9.4 8.5 - 10.5 mg/dL LAB CHEMISTRY METHOD 04/18/2025 8:46 AM EDT [facility] Blood Venous blood specimen / Unknown Venipuncture / Unknown 04/18/2025 8:05 AM EDT 04/18/2025 8:18 AM EDT Mayra STEIN LAB BLOOD ORDERABLES Final R esult [facility] [address] [place] [address], from Last 3 Months Insurance MEDICARE [facility] Care Teams Supervisor Wet End Relationship Specialty Start Date End Date Corrine Spangler MD [address] [place] [address] PCP - General Internal Medicine 02/23/25
--- OUTSIDE RECORDS SUMMARY | 2025-06-22 13:11 | XMS_ITS | Patient Health Record ---
[facility] Organization [facility] Address [address] [place] [address] Care Team Providers Care Cattle Manager Name Role Phone Corrine Spangler MD Primary Care Provider Reese Mancilla Unavailable [phone] Allergies Allergen (clinical drug ingredient) Drug/Non Drug [...] simvastatin Simvastatin diarrhea Drug Allergy Act chey Reason For Referral No Information Medications Medication [...] Trulicity 3 MG/0.5ML as directed Subcutaneous Not-Taking [place] 3 Not-Taking Losartan Potassium 100 MG Orally [...] Problem Acquired hammer toe of right foot ([id number] 105) Other hammer toe(s) (acquired), right foot (M20.41) Active confirmed Response to treatment,I mprovement Problem Type 2 diabetes mellitus with peripheral angiopathy (026319874) Type 2 diabetes mellitus with diabetic peripheral angiopathy without gangrene (E11.51) Active confirmed Q7(A), Q8(2B), Q9(1B,2C) Problem Acquired hammer toe of left foot (3921452813982 103) Other hammer toe(s) (acquired), left foot (M20.42) Active confirmed Response to treatment,I mprovement Vital Signs Blood pressure diastolic 60 mm Hg 04/10/2025 Height 5 ft 1 in in 04/10/2025 Blood pressure systolic 120 mm Hg 04/10/2025 Weight 142 lbs 04/10/2025 BMI 26.83 kg/m2 04/10/2025 Procedures Procedure Date Ordered Date Performed Result Body Sit e 94529-SAIRMRM NAIL, 6 OR MORE 08/22/2024 N/A 23231-OYLC SKIN LESIONS, OVER 4 08/22/2024 N/A 24747-LBKUQNR NAIL, 6 OR MORE 11/14/2024 N/A 88812-JIJS SKIN LESIONS, OVER 4 11/14/2024 N/A 85817-XDXHHNG NAIL, 6 OR MORE 04/10/2025 N/A 11533-MSSL SKIN LESIONS, OVER 4 04/10/2025 N/A Encounters Encounter Location Date Provider Diagnosis [address] [address] 08/22/2024 Reeseedelmira WellsJose Type 2 diabetes mellitus with diabetic peripheral angiopathy without gangrene E11.51 ; Tinea unguium B35.1 ; Pain in right toe(s) M79.674 ; Pain in left toe(s) M79.675 ; Other hammer toe(s) (acquired), right foot M20.41 and Other hammer toe(s) (acquired), left foot M20.[address] [address] 11/14/2024 Reese Wellsunier Type 2 diabetes mellitus with diabetic peripheral angiopathy without gangrene E11.51 ; Tinea unguium B35.1 ; Pain in right toe(s) M79.674 and Pain in left toe(s) M79.675 [facility] [address] [address] 04/10/2025 Reese Garcia Type 2 diabetes mellitus with diabetic peripheral angiopathy without gangrene E11.51 ; Tinea unguium B35.1 ; Pain in right toe(s) M79.674 ; Pain in left toe(s) M79.675 ; Other hammer toe(s) (acquired), left foot M20.42 and Other hammer toe(s) (acquired), right foot M20.41 [facility] [address] [address] 02/15/2025 Reese Jose Assessments Encounter Date Diagnosis (ICD Code) Assessment [...] Test Name Order Date Hemoglobin A1c 09/03/2015 33232-NEGRRDT NAIL, 6 OR MORE 12/06/2015 17546-KDNOKQN NAIL, 6 OR MORE 09/03/2015 93538-DRWFCJW NAIL, 6 OR MORE 03/10/2016 81856-UTZWDEZ NAIL, 6 OR MORE 06/09/2016 73965-LBCHTBR NAIL, 6 OR MORE 09/01/2016 82746-CXCWRBM NAIL, 6 OR MORE 11/24/2016 12350-ELKWUSK NAIL, 6 OR MORE 04/18/2021 48806-ZEVTHEN NAIL, 6 OR MORE 07/04/2021 43117-REYWZOY NAIL, 6 OR MORE 09/16/2021 09493-UBLRIGN NAIL, 6 OR MORE 02/16/2017 17844-NNIDVNN NAIL, 6 OR MORE 04/27/2017 21668-YWFTDDD NAIL, 6 OR MORE 07/20/2017 84204-ZIBZSIW NAIL, 6 OR MORE 09/28/2017 62087-KPWSJKW NAIL, 6 OR MORE 11/30/2017 14910-WWBPHFU NAIL, 6 OR MORE 02/15/2018 05683-HMETNFJ NAIL, 6 OR MORE 05/10/2018 61509-BVZRXJC NAIL, 6 OR MORE 08/19/2018 62677-YJMHSDJ NAIL, 6 OR MORE 11/04/2018 62533-TCJETDT NAIL, 6 OR MORE 01/24/2019 93022-QDVKGRU NAIL, 6 OR MORE 06/13/2019 01349-MSTKWKK NAIL, 6 OR MORE 08/22/2019 26951-TUXRJWD NAIL, 6 OR MORE 10/31/2019 74539-LFKFGQH NAIL, 6 OR MORE 01/09/2020 09981-UWDBEEE NAIL, 6 OR MORE 03/19/2020 28057-VEEAODP NAIL, 6 OR MORE 06/21/2020 69009-RVRKYSJ NAIL, 6 OR MORE 08/30/2020 86543-KPCQXPG NAIL, 6 OR MORE 11/05/2020 85837-OHKGKFQ NAIL, 6 OR MORE 01/10/2021 53198-JUNZLUB NAIL, 6 OR MORE 11/25/2021 70566-DNVXPNU NAIL, 6 OR MORE 01/30/2022 62457-CTHZZYI NAIL, 6 OR MORE 04/14/2022 78259-GPLUIEZ NAIL, 6 OR MORE 08/07/2022 81334-CGGRDOS NAIL, 6 OR MORE 10/16/2022 50806-BRKYOWH NAIL, 6 OR MORE 01/05/2023 97127-CDRJVIA NAIL, 6 OR MORE 03/16/2023 81238-YQMWCFX NAIL, 6 OR MORE 05/25/2023 07232-RPKHYWT NAIL, 6 OR MORE 08/06/2023 32141-HHJNUPK NAIL, 6 OR MORE 10/19/2023 74761-OGCSHIG NAIL, 6 OR MORE 03/21/2024 23989-NPDVBEY NAIL, 6 OR MORE 06/07/2024 49333-RPWXSBN NAIL, 6 OR MORE 08/22/2024 31357-CZBCMQZ NAIL, 6 OR MORE 11/14/2024 89745-PXQQDNU NAIL, 6 OR MORE 04/10/2025 14313-Xfpigneq Plate 01/10/2021 74660-Ajueshij Plate 11/24/2016 12843-Lpzsmhvj Plate 09/01/2016 18306-Ztjfuhwl Plate 06/09/2016 13734-Jvbjtqav Plate 03/10/2016 89534-Bdrxhkib Plate 09/03/2015 94411-Pnyofqtc Plate 12/06/2015 37041-CWKS SKIN LESIONS, OVER 4 04/10/20 25 25840-JXBH SKIN LESIONS, OVER 4 11/15/19 25 51745-LOTG SKIN LESIONS, OVER 4 08/22/19 25 09564-OLNM SKIN LESIONS, OVER 4 06/07/20 24 37289-LDEW SKIN LESIONS, OVER 4 10/19/19 24 57846-JLMW SKIN LESIONS, OVER 4 03/21/20 24 85859-KKJZ SKIN LESIONS, OVER 4 08/06/19 24 45468-JEXS SKIN LESIONS, OVER 4 05/25/20 23 20060-RCSS SKIN LESIONS, OVER 4 03/16/20 23 36610-JVIC SKIN LESIONS, 2 TO 4 01/06/20 23 39652-XFWS SKIN LESIONS, 2 TO 4 10/17/19 23 80464-VEWN SKIN LESIONS, 2 TO 4 08/07/19 23 38453-JDAW SKIN LESIONS, 2 TO 4 04/14/20 22 96882-MWPU SKIN LESIONS, 2 TO 4 01/31/20 22 41768-JVWO SKIN LESIONS, 2 TO 4 11/26/19 22 17090-YZVY SKIN LESIONS, 2 TO 4 09/16/19 22 75446-WZMH SKIN LESIONS, 2 TO 4 07/04/20 Next Appt Details Provider Name:Reese Garcia , 07/24/2025 02:45:00 PM, [address] [place], [address], Insurance Providers Payer Name Payer Address Payer Phone Subscriber Number Group Number Insured Name Patient Relationship to Insured Coverage Start Date Coverage End Date Medicare [facility] [address] [place] [address] [id number] Genie Escalera Self - patient is the insured [address] [place] [address] [place] [id number] Genie Escalera Self - patient is the [...] [facility] 05/04/2018 hand surgery- trigger finger right 2020 sx underarm 12/15/21 Hospitalization History Reason Date(Month/Year) [facility]- back ache 03/26 [facility] ER-Coronavirus symptoms- not tested- said asthma and allergies 10/24/2019 [facility]- ER for coughing- lesion found in samuel ngs 09/13/2017 pneumonia 11/24-11/26/15
--- OUTSIDE RECORDS SUMMARY | 2025-06-22 13:11 | XMS_ITS | Patient Health Record ---
Author Organization [facility] Address [address] [place] [address] Care Team Providers Care Straight Line Press Setter Name Role Phone Corrine Spangler MD Primary Care Provider Nishant Amaro Unavailable [phone] Allergies Allergen (clinical drug ingredient) Drug/Non Drug Allergy documented on EMR Reaction Allergy Type Onset Date Status sensative to most statins-no real allergy (uncoded) diarrhea Allergy Active alendronate Alendronate Sodium Unknown Drug Allergy Active atorvastatin Atorvastatin Calcium Unknown Drug Allergy Active sulfamethoxazole / trimethoprim Bactrim Unknown Drug Allergy Active cephalexin Cephalexin Unknown Drug Allergy Activ e hydrochlorothiazide Hydrochlorothiazide Unknown Drug Aller gy Active Levaquin Unknown Drug Allergy Active metformin Metformin HCl Unknown Drug Allergy Act chey pravastatin Pravastatin Sodium Unknown Drug Allergy Active simvastatin Simvastatin Unknown Drug Allergy Act chey canagliflozin [place] Unknown Drug Allergy Act chey dapagliflozin Farxiga Unknown Drug Allergy Act chey Reason For Referral No Information Medications Medication SIG (Take, Route, Frequency, Duration) Notes Start Date End Date Status Probiotic Active Zinc Active Fish Oil 1200 MG Capsule 1 capsule Orall y Once a day Active Motrin Active Calcium 500 MG Tablet 1 tablet with meal s Orally Once a day Active Aspir-81 81 MG Tablet Delaye d Release 1 tablet Orally twice a week Active Vitamin B12 1000 MCG Tablet Extended Release 1 tablet Orally Once a day Active Prolia 60 MG/ML Solution Prefilled Syringe as directed Subcutaneous Active Vitamin E Active Vitamin C Active Magnesium Active Turmeric Active Claritin Active Prevagen Active Flonase Active Januvia 100 MG Tablet 1 tablet Orally On ce a day Active Albuterol Sulfate 0.63 MG/3M L Nebulization Solution as directed Inhalation Active Trulicity 3 MG/0.5ML Solutio n Pen-injector as directed Subcutaneous Active Night Time Sleep Aid Active hydroCHLOROthiazide 25 MG Tablet 1 tablet in the morning Orally Once a day Active Omeprazole 20 MG Capsule Delayed Release 1 capsule Orally Once a day Active metroNIDAZOLE 0.75 % Cream 1 application Externally as needed Active Methenamine Hippurate 1 GM Tablet 1 tablet Orally Twice a day Active glipiZIDE ER 2.5 MG Tablet Extended Release 24 Hour 3 tablet Orally Once a day Active Flovent HFA 220 MCG/ACT Aerosol 2 puffs Inhalation Twice a day Active Vitamin D 1000 UNIT Tablet 1 tablet Oral ly Once a day Active Montelukast Sodium 10 MG Tablet 1 tablet Orally Once a day Active Losartan Potassium 100 MG Tablet 1 tablet Orally Once a day Active Immunizations Vaccine Route Administration Date Status Comme nts Flu vaccine no Preserv 3 and > Unknown 04/27/2017 Admin istered Social History Social History Additional Details Category Social Info Options Details Miscellaneous: Marital status: Occupation: Retired Section Notes: Nonsmoker; no alcohol Nonsmoker; no alcohol Nonsmoker; no alcohol Nonsmoker; no alcohol Problems Problem Type SNOMED Code ICD Code Onset Dates Problem Status W/U Status Risk Notes Problem Pancreatic cyst (08602658) Pancreatic cyst (K86.2) Active confirmed Problem Constipation (97900429) Constipation, unspecified constipation type (K59.00) Active confirmed Problem Left lower quadrant pain (062122767) Abdominal pain, left lower quadrant (R10.32) Active confirmed Problem Irritable bowel syndrome (78930424) Irritable bowel syndrome, unspecified type (K58.9) Active confirmed Problem Essential hypertension (16424357) Hypertension, unspecified type (I10) Active confirmed Plan Of Treatment No Information Insurance Providers Payer Name Payer Address Payer Phone Subscriber Number Group Number Insured Name Patient Relationship to Insured Coverage Start Date Coverage End Date MEDICARE OF [place] [address] [place] [address] [id number] HOOD CASTILLO Self - patient is the insured [employer] [address] [place] [phone] [id number] HOOD CASTILLO Self - patient is the insured Medical (General) History Medical History History ICD Code Chronic diarrhea/IBS-colonos copy biopsies negative for colitis in 1994 and labs neg. for celiac disease in 2009 Colon polyps-tubular adenoma s removed in 1999 and 2009-colonoscopy was negative in 2004 except for AVM's NIDDM Hyperlipidemia Hypertension Breast [id number] lumpectomy with XRT UTI's Denies VA,CVA,renal disease Bronchitis Pancreatic cysts seen on MRI in 09/[address] scan in November of 2022 Asthma Surgical History Surgery Date(Month/Year) Cholecystectomy JOANA Rectovaginal fistula repair in 1994 Bladder suspension Veins in LE's Breast cancer as above
== END 2025-06-22 12:50 | disposition home or self-care (01) ==
LOC: HO.MAMMO 12:49
PROVIDERS: PCP Internal Medicine; Visit Provider Internal Medicine
DX: M81.0 Age-related osteoporosis without current pathological fracture (principal)
CPT/HCPCS: 77080

== ENCOUNTER → 2025-06-22 13:00 | Outpatient (BNV) | payer MEDICARE, OTHER, SELFPAY | PROVIDERS: PCP Internal Medicine; Visit Provider Radiology Diagnostic Radiology | DX: E28.39 Other primary ovarian failure (principal) | CPT/HCPCS: 77080 ==

== ENCOUNTER 2025-06-25 15:10 | Outpatient (REF) | payer MEDICARE, OTHER, SELFPAY ==
--- OUTSIDE RECORDS SUMMARY | 2022-10-09 16:01 | XMS_ITS | Continuity of Care Document ---
Author Organization [facility] Address [address] [place] [address] [address] [place] [phone] Phone Care Team Providers Care Court Operations Clerk Name Role Phone Niall Dai MD, FACS, RVT Unavailable Unavailable Advance Directives Directive Yes / No Effective Date File Name No Information Encounters Encounter Description Practice Location Reason(s) For Visit Diagnoses Date Provider Providers Copied on [facility]counter [facility], [address] [facility] [address], [place], [id number], tel:[phone] [address] [facility] No Information Sep- 0 3 Agustín Garcia. [address] [facility], [facility] [address], [place], [address], [place]. tel:[phone] Referring Provider: Corrine Spangler MD S, [address] [place] [address], [address]. tel:[phone] Family History Family Member Type Diagnosis Age At Onset No Information Payers Payer name Insurance type Covered republican ID Authoriza tion(s) No Information Social History Type Description Quantity Date Captured Comments Sex Female Smoking Status No Information Chief Complaint And Reason For Visit No Information Reason For Referral Reason For Referral No Information History Of Present Illness Encounter Date Complaint History Of Prese nt Illness No Information Functional Status Date Functional Assessmen t No Information Instructions Date Instruction Additional Infor mation No Information Assessments Type Assessment Date No Information Patient Care Teams Name Effective Dates (start - stop) Status Members No Information
--- OUTSIDE RECORDS SUMMARY | 2024-02-04 09:00 | XMS_ITS ---
Author Organization [facility] Address [address] [place] [address] Care Team Providers Care Orthopedic Technician Name Role Phone Corrine Spangler MD Primary Care Provider UnavailReese Pastor Unavailable [phone] Brittany Zepeda Unavailable [phone] REASON FOR VISIT Seen Sooner Encounters Encounter Location Date Provider Diagnosis [address] [address] 02/04/2024 Brittany Zepeda Plan Of Treatment Next Appt Details Provider Name:Reese Garcia , 07/24/2025 02:45:00 PM, [address] [place] [address], [phone], Progress Notes * Genie RAO EDOB:1 09/27/1939 (84 yo F)Acc No.[id number]:02/04/2024 Progress Note Patient: Genie BARRAZA Provider: Nickolas Zepeda DPM :1940 A ge:83 Y S ex:Female Date:02/04/2024 Address:[address] [place], [place] [id number] Pcp:Corrine Spangler MD Subjective: * Chief Complaints: [...] 0 02/04/2024 Generated for Mary Sarah on: 08/25/2024 07:55 PM EST
--- OUTSIDE RECORDS SUMMARY | 2024-06-20 05:45 | XMS_ITS ---
Author Organization [facility] Address [address] [place] [address] Care Team Providers Care Child Care Center Administrator Name Role Phone Corrine Spangler MD Primary Care Provider Reese Mancilla Unavailable [phone] Encounters Encounter Location Date Provider Diagnosis [address] [address] 06/20/2024 Reese Garcia Plan Of Treatment Next Appt Details Provider Name:Reese Garcia , 07/24/2025 02:45:00 PM, [address] [place] [address], [phone], Progress Notes * Genie RAO EDOB:1 09/27/1939 (84 yo F)Acc No.[id number]:06/20/2024 Progress Note Patient: Genie BARRAZA Provider: Hermelinda Garcia DPM :1940 A ge:83 Y S ex:Female Date:06/20/2024 Address:[address] [place], [place] [id number] Pcp:Corrine Spangler MD Subjective: * Chief Complaints: [...] Garcia DPM Date: 08/20/2023 Generated for Mary quezada/Caridad on: 08/25/2024 07:55 PM EST
--- OUTSIDE RECORDS SUMMARY | 2024-07-04 04:30 | XMS_ITS ---
Author Organization [facility] Address [address] [place] [address] Care Team Providers Care Dietary Internship Name Role Phone Corrine Spangler MD Primary Care Provider Reese Mancilla Unavailable [phone] REASON FOR VISIT r/s for sooner apt Encounters Encounter Location Date Provider Diagnosis [address] [address] 07/04/2024 Reese Garcia Plan Of Treatment Next Appt Details Provider Name:Reese Garcia , 07/24/2025 02:45:00 PM, [address] [place] [address], [phone], Progress Notes * Genie RAO EDOB:1 09/27/1939 (84 yo F)Acc No.[id number]:07/04/2024 Progress Note Patient: Genie BARRAZA Provider: Hermelinda Garcia DPM :1940 A ge:83 Y S ex:Female Date:07/04/2024 Address:[facility] [id number] Pcp:Corrine Spangler MD Subjective: * Chief Complaints: [...] Date: 09/04/2023 Generated for Mary Sarah on: 08/25/2024 07:54 PM EST
--- OUTSIDE RECORDS SUMMARY | 2025-02-16 08:45 | XMS_ITS ---
Author Organization [facility] Address [address] [place] [address] Care Team Providers Care Leaflet Distributor Name Role Phone Corrine Spangler MD Primary Care Provider Reese Mancilla Unavailable [phone] Allergies Allergen (clinical drug ingredient) Drug/Non Drug [...] simvastatin Simvastatin diarrhea Drug Allergy Act chey Medications Medication SIG (Take, Route, Frequency, Duration) Notes Start Date End Date Status carBAMazepine Not-Ta christian Januvia 100 MG Orally Not-T aking ProAir HFA PRN Not-Takin g Calcium 1 tab Oral; Duration: 14 days Not-Taking Losartan Potassium 100 MG Orally Not-Taking Montelukast Sodium 10 MG 1 tablet Orally Once a day Not-Taking Trulicity 3 MG/0.5ML as directed Subcutaneous Not-Taking Fish Oil 1360 MG 1 capsule Orally Once a day; Duration: 30 day(s) Not-Taking Prolia 60 MG/ML as directed Subcutaneous 2 TIMES YEARLY Not-Taking aspirin 81 mg daily Not-Ta christian Vitamin E Active Trulicity 1.5 MG/0.5ML Subcutaneous; Duration: 84 Days Active Fluticasone Propionate HFA 220 MCG/ACT Inhalation; Duration: 60 Days Active Vitamin C Active Vitamin D 25 MCG (1000 UT) 1 tablet Orally Once a day; Duration: 30 day(s) Active Vitamin B 12 100 MCG as directed Orally Active Methenamine Hippurate 1 GM 1 tablet Orally Twice a day Active Omeprazole 20 MG 1 capsule 30 minutes before morning meal Orally Once a day Active Probiotic - as directed Orally Active Turmeric Curcumin 500 MG as directed Orally Active Flovent HFA PRN Active glipiZIDE XL 10 MG 1 tablets Orally Twice daily Active Magnesium 500 MG 1 tablet with a meal Orally Once a day; Duration: 30 day(s) Active Albuterol Active dilTIAZem HCl 120 MG 2 tablets Orally Active Ozempic Active [place] 3 Active Encounters Encounter Location Date Provider Diagnosis [facility] [address] [address] 02/16/2025 Reese Garcia Plan Of Treatment Next Appt Details Provider Name:Reese Garcia , 07/24/2025 02:45:00 PM, [address] [place] [address], [phone], Progress Notes * Genie RAO EDOB:1 09/27/1939 (84 yo F)Acc No.[id number]:02/16/2025 Progress Note Patient: Nilsa Genie CHANG Provider: Raquel Garcia DPM :1940 A ge:84 Y S ex:Female Date:02/16/2025 Address:[address] [place], [place] [id number] Pcp:Corrine Spangler MD Subjective: * Chief Complaints: * * Medical History: A rthritis, Asthma, Back,Hip,and Knee pain, Cancer, Cataracts, Diabetes mellitus type 2 , Gall bladder problems, High blood pressure, Polio, Chronic sinusitis, Measles, Mumps, Chicken pox, Transfusions, Reflux. * Medications: T kota Stuart , Taking [place] 3 , Taking Albuterol , Taking dilTIAZem HCl 120 MG Tablet 2 tablets Orally , Taking Flovent HFA , Notes to Pharmacist: PRN, Taking glipiZIDE XL 10 MG Tablet Extended Release 24 Hour 1 tablets Orally Twice daily , Taking Magnesium 500 MG Tablet 1 tablet with a meal Orally Once a day , Taking Methenamine Hippurate 1 GM Tablet 1 tablet Orally Twice a day , Taking Omeprazole 20 MG Capsule Delayed Release 1 capsule 30 minutes before morning meal Orally Once a day , Taking Probiotic - Capsule as directed Orally , Taking Turmeric Curcumin 500 MG Capsule as directed Orally , Taking Vitamin B 12 100 MCG Lozenge as directed Orally , Taking Vitamin C , Taking Vitamin D 25 MCG (1000 UT) Tablet 1 tablet Orally Once a day , Taking Vitamin E , Taking Trulicity 1.5 MG/0.5ML Solution Auto-injector Subcutaneous , Taking Fluticasone Propionate HFA 220 MCG/ACT Aerosol Inhalation , Not-Taking/PRN Montelukast Sodium 10 MG Tablet 1 tablet Orally Once a day , Not-Taking/PRN Trulicity 3 MG/0.5ML Solution Pen-injector as directed Subcutaneous , Not-Taking/PRN Fish Oil 1360 MG Capsule 1 capsule Orally Once a day , Not- Taking/PRN Prolia 60 MG/ML Solution Prefilled Syringe as directed Subcutaneous , Notes to Pharmacist: 2 TIMES YEARLY, Not-Taking/PRN aspirin 81 mg daily , Not-Taking/PRN Calcium 1 tab Oral , Not-Taking/PRN Losartan Potassium 100 MG Tablet Orally , Not-Taking/PRN ProAir HFA , Notes to Pharmacist: PRN, Not-Taking/PRN carBAMazepine , Not-Taking/PRN Januvia 100 MG Tablet Orally * Allergies: H ydrochlorothiazide: diarrhea, Pravastatin Sodium: diarrhea, Simvastatin: diarrhea, Metformin HCl: diarrhea, Ciprofloxacin: diarrhea, Levofloxacin: diarrhea, Fosamax: diarrhea. Objective: * Vitals: Assessment: Plan: * Treatment: * Images: * The named appointment provid er may or may not be the originator of this progress note, and it is not deemed complete until electronically signed by the appointment provider. Sign off status: Pending * Provider: Raquel Garcia DPM Date: 0 02/16/2025 Generated for Mary Sarah on: 08/25/2024 07:55 PM EST
--- OUTSIDE RECORDS SUMMARY | 2025-05-08 08:30 | XMS_ITS ---
Author Organization [facility] Address [address] [place] [address] Care Team Providers Care Diagram Clerk Name Role Phone Corrine Spangler MD Primary Care Provider Reese Mancilla Unavailable [phone] Encounters Encounter Location Date Provider Diagnosis [address] [address] 05/08/2025 Reese Garcia Plan Of Treatment Next Appt Details Provider Name:Reese Garcia , 07/24/2025 02:45:00 PM, [address] [place] [address], [phone], Progress Notes * Genie RAO EDOB:1 09/27/1939 (84 yo F)Acc No.[id number]:05/08/2025 Progress Note Patient: Genie BARRAZA Provider: Hermelinda Garcia DPM :1940 A ge:84 Y S ex:Female Date:05/08/2025 Address:[address] [place], [place] [id number] Pcp:Corrine Spangler MD Subjective: * Chief Complaints: * * Medical History: Objective: * Vitals: Assessment: Plan: * Treatment: * Images: * The named appointment provid er may or may not be the originator of this progress note, and it is not deemed complete until electronically signed by the appointment provider. Sign off status: Pending * Provider: Hermelinda Garcia DPM Date: Generated for Mary quezada/Caridad on: 08/25/2024 07:54 PM EST
[2025-06-25 16:17] LABS: Appearance Urine Turbid; Glucose Urine UA Negative (Negative); PH 5.5 (5.0-9.0); Specific Gravity - Urine 1.020 (1.005-1.025); UMIC TRIGGER UA YES
--- OUTSIDE RECORDS SUMMARY | 2025-06-25 19:55 | XMS_ITS | Data Portability ---
Author Organization [facility], [address] Address [address] [place] [address] Care Team Providers Care Real Estate Intern Name Role Phone [facility] Primary Care Provider [facility] UROLOGY OTHER [phone] Assessment No assessment recorded. Plan of Treatment Reminders Order Date Submit Date Provider Last Modified By Organization Details Last Modified Time Details Appointments None recorded. Lab urinalysis , dipstick 2022 023 [facility], [address] [place] [address], [address], 3 09:13:00 glucose, fingerstic k, blood 2022 023 [facility], [address] [place] [address], [address], 3 09:13:00 culture, urine 2022 023 [place] [facility], [address] [place] [address], [place], [address], 3 16:06:30 Referral None recorded. Procedures None recorded. Surgeries None recorded. Imaging None recorded. Medication Orders Macrobid 100 mg capsule 2022 023 [place] [id number], [address] [place], [address], 3 09:13:03 Patient TargetsNo targets recorded. Patient Instructions Encounter Date Encounter Id Patient Instructions Last Modified By Organization Details Last Modified Time 11/07/2022 [id number] nausea and vomiting: care instructions Not available [...] to have routine doctor appointments with their warehouse team leader and/or primary care provider to examine or [...] green veggies (e.g., broccoli, spinach, brussels sprouts) [place] veggies (e.g., carrots, sweet potatoes, pumpkin, winter [...] calluses are present, ask a doctor or repeat chief about the best way to care for [...] [facility] ([facility]) [address] [place], [address], 11/14/2022 08:07:39 11/08/1911/14/2022 URINE CULTU RE, ROUTI NE result 1 ENTERO BACTER SPECIE S abnormal 50,00 0-100 ,000 colon y formi ng units per mL Not Available [facility] ([facility]) [address] [facility], [place], [address], 11/14/2022 08:07:39 11/08/1911/14/2022 URINE CULTU RE, ROUTI [...] [facility] ([facility]) [address] [facility], [place], [address], 11/14/2022 08:07:39 11/08/1911/07/2022 gluco se, finge rstic k, blood blood sugar - non fasting 221 mg/dL 80-140 = normal Not Available [address], [place], [address], 11/07/2022 08:38:45 11/08/19 23 11/07/2022 gluco se, finge rstic k, blood blood sugar - fasting mg/dL 80-125 = normal Not Available [address], [place], [address], 11/07/2022 08:38:45 11/08/19 23 11/07/2022 urina lysis , dipst ick Unknown Analyte Normal = light yellow Not Available [address], [place], [address], 11/07/2022 08:31:12 11/08/19 23 11/07/2022 urina lysis , dipst ick Unknown Analyte Yellow Not Available [address], [place], [address], 11/07/2022 08:31:12 11/08/19 23 11/07/2022 urina lysis , dipst ick Unknown Analyte Normal = clear Not Available [address], [place], [address], 11/07/2022 08:31:12 11/08/19 23 11/07/2022 urina lysis , dipst ick Unknown Analyte Clear Not Available [address], [place], [address], 11/07/2022 08:31:12 04/08/11/07/2022 urina lysis , dipst ick Unknown Analyte Normal = negati ve Not Available pete blankenship [address], [place], [address], 11/07/2022 08:31:12 11/08/19 23 11/07/2022 urina lysis , dipst ick Unknown Analyte 250 mg/dL Not Available pete blankenship [address], [place], [address], 11/07/2022 08:31:12 11/08/19 23 11/07/2022 urina lysis , dipst ick Unknown Analyte Normal = Negati ve Not Available pete blankenship [address], [place], [address], 11/07/2022 08:31:12 11/08/19 23 11/07/2022 urina lysis , dipst ick Unknown Analyte Negati ve Not Available pete blankenship [address], [place], [address], 11/07/2022 08:31:12 11/08/19 23 11/07/2022 urina lysis , dipst ick Unknown Analyte Normal = Negati ve Not Available pete blankenship [address], [place], [address], 11/07/2022 08:31:12 11/08/19 23 11/07/2022 urina lysis , dipst ick Unknown Analyte Negati ve Not Available pete blankenship [address], [place], [place], [address], 11/07/2022 08:31:12 11/08/19 23 11/07/2022 urina lysis , dipst ick Unknown Analyte Normal = 1.010, 1.015, 1.020 Not Available pete blankenship [address], [place], [place], [address], 11/07/2022 08:31:12 11/08/19 23 11/07/2022 urina lysis , dipst ick Unknown Analyte 1.030 Not Available [facility] [address], [place], [address], 11/07/2022 08:31:12 11/08/19 23 11/07/2022 urina lysis , dipst ick Unknown Analyte Normal = Negati ve Not Available pete blankenship [address], [place], [address], 11/07/2022 08:31:12 11/08/19 23 11/07/2022 urina lysis , dipst ick Unknown Analyte Trace- intact Not Available [facility] [address], [place], [address], 11/07/2022 08:31:12 11/08/19 23 11/07/2022 urina lysis , dipst ick Unknown Analyte Normal = 6.5, 7.0, 7.5, 8.0 Not Available [facility] [address], [place], [address], 11/07/2022 08:31:12 11/08/19 23 11/07/2022 urina lysis , dipst ick Unknown Analyte 5.5 Not Available [address], [place], [address], 11/07/2022 08:31:12 11/08/19 23 11/07/2022 urina lysis , dipst ick Unknown Analyte Normal = Negati ve Not Available [address], [place], [address], 11/07/2022 08:31:12 11/08/19 23 11/07/2022 urina lysis , dipst ick Unknown Analyte 30 mg/dL Not Available pete blankenship [address], [place], [address], 11/07/2022 08:31:12 11/08/1911/07/2022 urina lysis , dipst ick Unknown Analyte Normal = 0.2, 1.0 Not Available [address] [place] [address], [place], [address], 11/07/2022 08:31:12 11/08/19 23 11/07/2022 urina lysis , dipst ick Unknown Analyte 0.2 E.U./d L Not Available [facility] [address], [place], [address], 11/07/2022 08:31:12 11/08/19 23 11/07/2022 urina lysis , dipst ick Unknown Analyte Normal = Negati ve Not Available [address], [place], [address], 11/07/2022 08:31:12 11/08/1911/07/2022 urina lysis , dipst ick Unknown Analyte Negati ve Not Available [address] [place] [address], [place], [address], 11/07/2022 08:31:12 11/08/19 23 11/07/2022 urina lysis , dipst ick Unknown Analyte Normal = Negati ve Not Available [facility] [address], [place], [address], 11/07/2022 08:31:12 11/08/19 23 11/07/2022 urina lysis , dipst ick Unknown Analyte Small Not Available [address] [place] [address], [place], [address], 11/07/2022 08:31:12 Result Notes None recorded. Problems Name Problem SNOMED Code Status Onset Date Resolution Date Notes Provider Name and Address Organization Details Recorded Time Diabetes mellitus 91822490 Active 2022 OLIVIA DEPINTO null, PA - [facility] 3 08:21:08 Osteoporosi s 37552747 Active 2022 OLIVIA DEPINTO null, PA - [facility] 3 08:21:27 Gastroesoph ageal reflux disease 344531596 Active 2022 OLIVIA DEPINTO null, PA - [facility] 3 08:21:32 Hypertensiv e disorder 91229252 Active 2022 OLIVIA DEPINTO null, PA - [facility] 3 08:21:37 Asthma 655471792 Active 2022 OLIVIA DEPINTO null, PA - [facility] 3 08:21:49 Malignant neoplasm of breast 993161736 Completed 202211/07/20222003 OLIVIA DEPINTO null, PA - [...] Name and Address Organization Details Recorded Time 693274 hydrochlo rothiazid e medicatio n diarrhea Not available Not available 11/07/2022 5487 RxNorm OLIVIA DEPINTO null, PA - [facility] 3 08:18:50 822888 pravastat in medicatio n diarrhea Not available Not available 11/07/2022 46758 RxNorm OLIVIA DEPINTO null, PA - [facility] 3 08:19:10 101655 metformin medicatio n diarrhea Not available Not available 11/07/2022 6809 RxNorm OLIVIA DEPINTO null, PA - [facility] 3 08:19:19 144051 ciproflox acin medicatio n diarrhea Not available Not available 11/07/2022 2551 RxNorm OLIVIA DEPINTO null, PA - [facility] 3 08:19:43 771944 alendrona te sodium medicatio n diarrhea Not available Not available 11/07/2022 42842 2 RxNorm OLIVIA DEPINTO null, PA - [facility] 3 08:19:52 795660 Farxiga medicatio n diarrhea Not available Not available 11/07/2022 19115 72 RxNorm OLIVIA DEPINTO null, PA - [...] Updated DateTime 3 154.94 cm 27 kg/m2 01830.7 1 g 0 18 /min 97.2 [degF] 96 % 75 /min 151/73 mm[Hg] OLIVIA KAHN PA - [facility] 3 08:27:08 Social History Question Answer Notes LastModified by [employer] Details LastModified Time Tobacco Smoking Status Never Smoker OLIVIA vergara PA - [facility] 11/07/2022 08:22:09 Have You Recently Traveled Abroad? No Information not available 11/07/2022 Sex: Unknown Functional Status Question Answer Note LastModified by [employer]SA[employer] Details LastModified Time Do you use any [...] [facility] 11/07/2022 08:16:22 Pneumococcal conjugate PCV20, polysaccharide ZRX396 conjugate, adjuvant, PF 3 completed OLIVIA DEPINTO [...] ICD10 Code Diagnosis IMO Codes Diagnosis Note [id number] [facility] [place] [address] 05/01/2018 11:10:17 05/01/2018 12:08:27 [id number] [facility] [address] [address] [place] [address] 07/04/2018 08:22:27 07/04/2018 08:50:56 [id number] [facility] [address] [place] [address] 10/16/2016 13:39:10 10/16/2016 15:34:24 [id number] [facility] [address] [address] [place] [address] 10/16/2018 08:16:49 10/16/2018 09:03:27 [id number] [facility] [address] [address] [place] [address] 12/05/2016 08:05:07 12/05/2016 09:01:39 [id number] [address] [address] [address] [place] [address] 08/09/2017 08:51:37 08/09/2017 09:35:02 [id number] [address] [address] [address] [place] [address] 08/06/2015 10:01:18 08/06/2015 11:48:14 [id number] [facility] [address] [address] [place] [address] 09/15/2016 10:47:05 09/15/2016 12:43:09 [id number] [address] [address] [place] [address] 10/19/2016 14:20:17 10/19/2016 16:00:31 [id number] Luis Pierce, RECORDING CLERK [address] [address] [place] [address] 11/07/2022 08:06:50 11/07/2022 09:16:29 Acute urinary tract infection 543787475 N39.0 Diabetes m ellitus screening 064143273 Z13.1 Type 2 lois betes mellitus 60809536 E11.22 Health Concerns Section Related Observation LastModified by Organization Detai ls LastModified Time None Recorded Concern Status LastModified by Organization Details LastModified Time None Recorded Advance Directives Directive None Recorded Payers Insurance Date Sequence Insurance Name Policy Number Policy Mercedes Covered Member ID Mercedes Member ID Guarantor Name 11/07/2022 1 [place]: [employer] Genie Harrington [id number] Genie Harrington 11/07/2022 2 [facility] Genie Grimes-Devin kim [id number] Genie Harrington Notes Date Note Type [...] Pierce NP [address] [place], [address], [place] - [facility] 11/07/2022 09:13:42 OBGyn Episode No OBEpisode recorded.
--- OUTSIDE RECORDS SUMMARY | 2025-06-25 19:55 | XMS_ITS | Patient Health Record ---
Author Organization [facility] Address [address] [place] [address] Care Team Providers Care Solder Sprayer Name Role Phone Corrine Spangler MD Primary Care Provider Reese Mancilla Unavailable [phone] Allergies Allergen (clinical drug ingredient) Drug/Non Drug [...] Trulicity 3 MG/0.5ML as directed Subcutaneous Not-Taking [place] 3 Not-Taking Losartan Potassium 100 MG Orally [...] Problem Acquired hammer toe of right foot (3418917047551 105) Other hammer toe(s) (acquired), right foot (M20.41) Active confirmed Response to treatment,I mprovement Problem Type 2 diabetes mellitus with peripheral angiopathy (371816839) Type 2 diabetes mellitus with diabetic peripheral angiopathy without gangrene (E11.51) Active confirmed Q7(A), Q8(2B), Q9(1B,2C) Problem Acquired hammer toe of left foot (6592223506164 103) Other hammer toe(s) (acquired), left foot (M20.42) Active confirmed Response to treatment,I mprovement Vital Signs Blood pressure diastolic 60 mm Hg 04/10/2025 Height 5 ft 1 in in 04/10/2025 Blood pressure systolic 120 mm Hg 04/10/2025 Weight 142 lbs 04/10/2025 BMI 26.83 kg/m2 04/10/2025 Procedures Procedure Date Ordered Date Performed Result Body Sit e 07897-VLQQWAX NAIL, 6 OR MORE 08/22/2024 N/A 78581-GQTA SKIN LESIONS, OVER 4 08/22/2024 N/A 54386-HWRORTH NAIL, 6 OR MORE 11/14/2024 N/A 39495-JLCC SKIN LESIONS, OVER 4 11/14/2024 N/A 20853-CZEUMPU NAIL, 6 OR MORE 04/10/2025 N/A 46721-EIYS SKIN LESIONS, OVER 4 04/10/2025 N/A Encounters Encounter Location Date Provider Diagnosis [address] [address] 08/22/2024 Reeseedelmira WellsJose Type 2 diabetes mellitus with diabetic peripheral angiopathy without gangrene E11.51 ; Tinea unguium B35.1 ; Pain in right toe(s) M79.674 ; Pain in left toe(s) M79.675 ; Other hammer toe(s) (acquired), right foot M20.41 and Other hammer toe(s) (acquired), left foot M20.[address] [address] 11/14/2024 Reese Wellsunier Type 2 diabetes mellitus with diabetic peripheral angiopathy without gangrene E11.51 ; Tinea unguium B35.1 ; Pain in right toe(s) M79.674 and Pain in left toe(s) M79.675 [facility] [address] [address] 04/10/2025 Reese Garcia Type 2 diabetes mellitus with diabetic peripheral angiopathy without gangrene E11.51 ; Tinea unguium B35.1 ; Pain in right toe(s) M79.674 ; Pain in left toe(s) M79.675 ; Other hammer toe(s) (acquired), left foot M20.42 and Other hammer toe(s) (acquired), right foot M20.41 [facility] [address] [address] 02/15/2025 Reese Jose Assessments Encounter Date Diagnosis [...] Test Name Order Date Hemoglobin A1c 09/03/2015 19380-XSMDBGY NAIL, 6 OR MORE 12/06/2015 16480-UTXZIBJ NAIL, 6 OR MORE 09/03/2015 16692-XHZIYQC NAIL, 6 OR MORE 03/10/2016 67391-AADJVWU NAIL, 6 OR MORE 06/09/2016 78047-CERRYXN NAIL, 6 OR MORE 09/01/2016 69796-KEQQJGQ NAIL, 6 OR MORE 11/24/2016 61025-TUZRGDH NAIL, 6 OR MORE 04/18/2021 49466-FGQPPUN NAIL, 6 OR MORE 07/04/2021 23077-RSGPDKN NAIL, 6 OR MORE 09/16/2021 86990-LZRBAHF NAIL, 6 OR MORE 02/16/2017 21382-SWGUJKB NAIL, 6 OR MORE 04/27/2017 78146-SCSGCII NAIL, 6 OR MORE 07/20/2017 36873-LUAJADE NAIL, 6 OR MORE 09/28/2017 03644-CBXNYOG NAIL, 6 OR MORE 11/30/2017 16657-QWVEKLX NAIL, 6 OR MORE 02/15/2018 86694-THDJOTQ NAIL, 6 OR MORE 05/10/2018 49483-ZOVYRGP NAIL, 6 OR MORE 08/19/2018 24389-PYBAIAV NAIL, 6 OR MORE 11/04/2018 72768-MVDAGSI NAIL, 6 OR MORE 01/24/2019 31724-DKOOFAM NAIL, 6 OR MORE 06/13/2019 94176-FJKVAPE NAIL, 6 OR MORE 08/22/2019 23057-RYASJBJ NAIL, 6 OR MORE 10/31/2019 55774-UGLFTYW NAIL, 6 OR MORE 01/09/2020 22181-GXXSLON NAIL, 6 OR MORE 03/19/2020 37617-YTHGGTQ NAIL, 6 OR MORE 06/21/2020 26750-FFFGPTT NAIL, 6 OR MORE 08/30/2020 61155-VLPEMQC NAIL, 6 OR MORE 11/05/2020 52328-CBDADFJ NAIL, 6 OR MORE 01/10/2021 71415-XTRWXGS NAIL, 6 OR MORE 11/25/2021 75004-PTJLOST NAIL, 6 OR MORE 01/30/2022 61123-DVTFJLT NAIL, 6 OR MORE 04/14/2022 28756-UYMFPTG NAIL, 6 OR MORE 08/07/2022 36425-USAPWGI NAIL, 6 OR MORE 10/16/2022 08891-UIMFAZA NAIL, 6 OR MORE 01/05/2023 59388-UZABVYN NAIL, 6 OR MORE 03/16/2023 22042-QHZIQJQ NAIL, 6 OR MORE 05/25/2023 04115-VLMSDOC NAIL, 6 OR MORE 08/06/2023 41453-MTIAGVE NAIL, 6 OR MORE 10/19/2023 86435-NDAMVMO NAIL, 6 OR MORE 03/21/2024 03499-TJUZJPX NAIL, 6 OR MORE 06/07/2024 98777-ABMBWJK NAIL, 6 OR MORE 08/22/2024 78170-ERUMDPU NAIL, 6 OR MORE 11/14/2024 32370-FCKHBCF NAIL, 6 OR MORE 04/10/2025 50584-Smwnpbgf Plate 01/10/2021 46714-Zebgnmar Plate 11/24/2016 80408-Rsbcivwy Plate 09/01/2016 35119-Ewxgmjgj Plate 06/09/2016 56157-Xohdaqqw Plate 03/10/2016 70899-Deyyboui Plate 09/03/2015 53257-Yjvumdfy Plate 12/06/2015 64472-QTRS SKIN LESIONS, OVER 4 04/10/20 25 08248-SPLM SKIN LESIONS, OVER 4 11/15/19 25 85114-KLBJ SKIN LESIONS, OVER 4 08/22/19 25 53514-DXEM SKIN LESIONS, OVER 4 06/07/20 24 57055-VQFZ SKIN LESIONS, OVER 4 10/19/19 24 49539-BNOB SKIN LESIONS, OVER 4 03/21/20 24 47157-VBBN SKIN LESIONS, OVER 4 08/06/19 24 51000-MUHZ SKIN LESIONS, OVER 4 05/25/20 23 35359-BBSM SKIN LESIONS, OVER 4 03/16/20 23 39382-BMDG SKIN LESIONS, 2 TO 4 01/06/20 23 25802-DTJB SKIN LESIONS, 2 TO 4 10/17/19 23 69075-ATIM SKIN LESIONS, 2 TO 4 08/07/19 23 06381-ESHD SKIN LESIONS, 2 TO 4 04/14/20 22 86904-IZEB SKIN LESIONS, 2 TO 4 01/31/20 22 92356-LZWA SKIN LESIONS, 2 TO 4 11/26/19 22 87589-DQXW SKIN LESIONS, 2 TO 4 09/16/19 22 18779-TYIQ SKIN LESIONS, 2 TO 4 07/04/20 Next Appt Details Provider Name:Reese Garcia , 07/24/2025 02:45:00 PM, [address] [place], [address], Insurance Providers Payer Name Payer Address Payer Phone Subscriber Number Group Number Insured Name Patient Relationship to Insured Coverage Start Date Coverage End Date Medicare [facility] [address] [facility] [address] [id number] Genie Escalera Self - patient is the insured [address] [place] [address] [place] [phone] [id number] Genie Escalera Self - patient is the insured Medical (General) History Medical History History ICD Code Arthritis Asthma Back,Hip,and Knee pain Cancer Cataracts Diabetes mellitus type 2 Gall bladder problems High blood pressure Polio chronic sinusitis Measles Mumps Chicken pox Transfusions Reflux Surgical History Surgery Date(Month/Year) gall bladder 1967 breast surgery hysterectomy bladder suspension vein surgery (LT leg) right carpal tunnel [facility] [place]/04/2018 hand surgery- trigger finger right 2020 sx underarm 12/15/21 Hospitalization History Reason Date(Month/Year) [facility] ache 03/26 [facility] ER-Coronavirus symptoms- not tested- said asthma and allergies 10/24/2019 [facility] for coughing- lesion found in samuel ngs 09/13/2017 pneumonia 11/24-11/26/15
--- OUTSIDE RECORDS SUMMARY | 2025-06-25 19:55 | XMS_ITS | Encounter Summary ---
Author Organization [facility] Address [address] [place] [address] Care Team Providers Care Systems Analyst Engineer Name Role Phone Corrine Spangler MD Primary Care Provider [phone] Encounter Details Date Type Department Care Team (Late st Contact Info) Description 02/23/2025 Lab Requisition [facility] - Main Lab [address] [facility] [place] [address] Mamadou Schmid, EMIL [address] [place], [place] [id number] Urinary tract infection, site not specified Social [...] cloacae complex(A) [place] 02/25/2025 10:20 AM EDT [facility] ([facility] Comment: This is an [...] complex Trimethoprim/Sulfamethoxazo le [place] <=20 ug/ml: Susceptible [facility] MICROBIOLOGY - [facility] Final Result [facility] ([facility]) [facility] [address] [place] [address], documented in this encounter Visit Diagnoses Diagnosis Urinary tract infection, site not specified documented in this encounter Care Teams Systems Analyst Engineer Relationship Specialty Start Date End Date Corrine Spangler MD [address] [place] [address] PCP - General Internal Medicine 02/23/25 documented as of this encounter
--- OUTSIDE RECORDS SUMMARY | 2025-06-25 19:55 | XMS_ITS | Clinical Summary ---
Author Organization [address] [facility] Address [address] [place] [address] Phone Care Team Providers Care Supervisor [employer]ing [employer] Stamping Name Role Phone Corrine Spangler MD Primary Care Provider [phone] Allergies Active Allergy Reactions Criticality Noted Date Comments Ciprofloxacin 04/18/2025 Hydrochlorothiazide 04/18/2025 Levofloxacin 04/18/2025 Lidocaine 04/18/2025 Metformin 04/18/2025 Pravastatin 04/18/2025 Simvastatin 04/18/2025 Sulfa (Sulfonamide Antibiotics) GI intolerance 04/18/2025 Encounters Date Type Department Care Team Description 04/18/2025 7:31 AM EDT - 04/18/2025 4:50 PM EDT Emergency [facility] Emergency [address] [place] [address] Dolores Tong DO Cystitis (Primary [...] and culture (04/18/2025 8:33 AM EDT) Specific [place] Urine 1.020 1.003 - 1.030 LAB URINALYSIS - AUTOMATED METHOD 04/18/2025 9:31 AM [facility] pH, Urine 5.5 5.0 - 8.0 pH LAB URINALYSIS - AUTOMATED METHOD 04/18/2025 9:31 AM [facility] Leukocytes, Urine Large(A) Negative LAB URINALYSIS - AUTOMATED METHOD 04/18/2025 9:31 AM [facility] Nitrite, Urine Positive(A) Negative LAB URINALYSIS - AUTOMATED METHOD 04/18/2025 9:31 AM [facility] Protein, Urine 100(A) <=Trace mg/dL LAB URINALYSIS - AUTOMATED METHOD 04/18/2025 9:31 AM [facility] Glucose, Urine 100(A) Negative mg/dL LAB URINALYSIS - AUTOMATED METHOD 04/18/2025 9:31 AM [facility] Ketones, Urine Negative Negative mg/dL LAB URINALYSIS - AUTOMATED METHOD 04/18/2025 9:31 AM [facility] Urobilinogen , Urine 0.2 0.2 - 1.0 mg/dL LAB URINALYSIS - AUTOMATED METHOD 04/18/2025 9:31 AM [facility] Bilirubin, Urine Negative Negative LAB URINALYSIS - AUTOMATED METHOD 04/18/2025 9:31 AM [facility] Blood, Urine Moderate(A) Negative LAB URINALYSIS - AUTOMATED METHOD 04/18/2025 9:31 AM [facility] RBC, Urine 44.8(H) 0 - 4 /HPF LAB URINALYSIS - AUTOMATED METHOD 04/18/2025 9:31 AM [facility] WBC, Urine 1,526.1(H) 0 - 4 /HPF LAB URINALYSIS - AUTOMATED METHOD 04/18/2025 9:31 AM [facility] Squamous Epithelial, Urine 28 0 - 60 /LPF LAB URINALYSIS - AUTOMATED METHOD 04/18/2025 9:31 AM [facility] Bacteria, Urine Many(A) Negative /HPF LAB URINALYSIS - AUTOMATED METHOD 04/18/2025 9:31 AM [facility] Hyaline Casts, Urine 0.6 0 - 3 /LPF LAB URINALYSIS - AUTOMATED METHOD 04/18/2025 9:31 AM [facility] Yeast, Urine Present(A) None /HPF LAB URINALYSIS - AUTOMATED METHOD 04/18/2025 9:31 AM [facility] Urine Urine specimen obtained by clean catch procedure / Unknown Non-blood Collection / Unknown 04/18/2025 8:33 AM EDT 04/18/2025 9:00 AM EDT Mayra STEIN LAB URINE ORDERABLES Final R esult Performing Organization Address [facility]/ZIP Co de Phone Number [facility] [address] [place] [address], [place] [phone] * León urine culture tube (04/18/2025 8:33 AM EDT) Extra Tube Hold for add-ons. 04/18/2025 10:01 AM EDT [facility] Comment:Auto resulted. Urine Urine specimen obtained by clean catch procedure / Unknown Non-blood Collection / Unknown 04/18/2025 8:33 AM EDT 04/18/2025 9:00 AM EDT [facility] [place] LAB URINE ORDERABLES Final R esult Performing Organization Address [facility] Co de Phone Number [facility] [address] [place] [address], [place] [phone] * (ABNORMAL) Culture urine (04/18/2025 8:33 AM EDT) Pathologist [facility] Culture, Urine 50,000-100,000 CFU/mL Enterobacter cloacae complex(A) [place] 04/20/2025 8:20 AM EDT [facility] Comment: This is an edited [...] MICROBIOLOGY - GENERAL O RDERABLES Final Result [facility] [address] [place] [address], * (ABNORMAL) CBC auto differential (04/18/2025 8:05 AM EDT) WBC 6.9 4.8 - 10.8 K/mcL LAB HEMETOLOGY METHOD 04/18/2025 8:31 AM EDT [facility] RBC 3.90 3.80 - 4.80 M/mcL LAB HEMETOLOGY METHOD 04/18/2025 8:31 AM EDT [facility] Hemoglobin 11.5 11.5 - 16.0 g/dL LAB HEMETOLOGY METHOD 04/18/2025 8:31 AM EDT [facility] Hematocrit 35.4 35.0 - 47.0 % LAB HEMETOLOGY METHOD 04/18/2025 8:31 AM EDT [facility] MCV 89.8 79.0 - 98.0 FL LAB HEMETOLOGY METHOD 04/18/2025 8:31 AM EDT [facility] MCH 29.2 27.0 - 32.0 pcg LAB HEMETOLOGY METHOD 04/18/2025 8:31 AM EDT [facility] MCHC 32.5 32.0 - 37.0 g/dL LAB HEMETOLOGY METHOD 04/18/2025 8:31 AM [facility] RDW 13.7 11.0 - 15.0 % LAB HEMETOLOGY METHOD 04/18/2025 8:31 AM [facility] Platelets 165 130 - 400 K/mcL LAB HEMETOLOGY METHOD 04/18/2025 8:31 AM [facility] MPV 9.8 7.0 - 11.0 FL LAB HEMETOLOGY METHOD 04/18/2025 8:31 AM [facility] NRBC 0.0 <1.0 % LAB HEMETOLOGY METHOD 04/18/2025 8:31 AM [facility] NRBC Absolute 0.00 <0.10 K/mcL LAB HEMETOLOGY METHOD 04/18/2025 8:31 AM [facility] Neutrophils Relative 74.7 % LAB HEMETOLOGY METHOD 04/18/2025 8:31 AM [facility] Lymphocytes Relative 12.1 % LAB HEMETOLOGY METHOD 04/18/2025 8:31 AM [facility] Monocytes Relative 9.7 % LAB HEMETOLOGY METHOD 04/18/2025 8:31 AM [facility] Eosinophils Relative 2.5 % LAB HEMETOLOGY METHOD 04/18/2025 8:31 AM [facility] Basophils Relative 0.6 % LAB HEMETOLOGY METHOD 04/18/2025 8:31 AM [facility] Immature Granulocytes Relative 0.4 % LAB HEMETOLOGY METHOD 04/18/2025 8:31 AM [facility] Neutrophils Absolute 5.17 1.50 - 7.00 K/mcL LAB HEMETOLOGY METHOD 04/18/2025 8:31 AM [facility] Lymphocytes Absolute 0.84(L) 1.00 - 5.00 K/mcL LAB HEMETOLOGY METHOD 04/18/2025 8:31 AM EDT [facility] Monocytes Absolute 0.67 0.20 - 1.00 K/[facility] LAB HEMETOLOGY METHOD 04/18/2025 8:31 AM EDT [facility] Eosinophils Absolute 0.17 0.00 - 0.50 K/[facility] LAB HEMETOLOGY METHOD 04/18/2025 8:31 AM EDT [facility] Basophils Absolute 0.04 0.00 - 0.20 K/[facility] LAB HEMETOLOGY METHOD 04/18/2025 8:31 AM EDT [facility] Immature Granulocytes Absolute 0.03 0.00 - 0.03 K/[facility] LAB HEMETOLOGY METHOD 04/18/2025 8:31 AM EDT [facility] Blood Venous blood specimen / Unknown Venipuncture / Unknown 04/18/2025 8:05 AM EDT 04/18/2025 8:18 AM EDT us Mayra STEIN LAB BLOOD ORDERABLES Final R esult Performing Organization Address City/State/[facility] Co de Phone Number [facility] [address] [place] [address], * Type and screen (04/18/2025 8:05 AM EDT) ABO Group A 04/18/2025 10:06 AM EDT [facility] Rh Type Positive 04/18/2025 10:06 AM EDT [facility] Antibody Screen Negative 04/18/2025 10:06 AM EDT [facility] Blood Venous blood specimen / Unknown Venipuncture / Unknown 04/18/2025 8:05 AM EDT 04/18/2025 8:18 AM EDT us Mayra STEIN LAB BLOOD BANK TEST ORDERABL ES Final Result [facility] [address] [place] [address], * (ABNORMAL) Basic metabolic panel (04/18/2025 8:05 AM EDT) Sodium 138 133 - 145 mmol/L LAB CHEMISTRY METHOD 04/18/2025 8:46 AM [facility] Potassium 3.7 3.5 - 5.5 mmol/L LAB CHEMISTRY METHOD 04/18/2025 8:46 AM [facility] Chloride 106 96 - 110 mmol/L LAB CHEMISTRY METHOD 04/18/2025 8:46 AM [facility] CO2 26 21 - 32 mmol/L LAB CHEMISTRY METHOD 04/18/2025 8:46 AM [facility] Anion Gap 6 3 - 11 LAB CHEMISTRY METHOD 04/18/2025 8:46 AM [facility] Glucose 240(H) 70 - 100 mg/dL LAB CHEMISTRY METHOD 04/18/2025 8:46 AM [facility] BUN 18 5 - 25 mg/dL LAB CHEMISTRY METHOD 04/18/2025 8:46 AM [facility] Creatinine 0.70 0.50 - 1.10 mg/dL LAB CHEMISTRY METHOD 04/18/2025 8:46 AM [facility] eGFR 84 >=60 mL/min/1. 73m2 LAB CHEMISTRY METHOD 04/18/2025 8:46 AM [facility] Comment:Calculation based on the Chronic Kidney Disease Epidemiology Collaboration (CKD-EPI) equation refit without adjustment for race. BUN/Creatinine Ratio 25.7 LAB CHEMISTRY METHOD 04/18/2025 8:46 AM [facility] Calcium 9.4 8.5 - 10.5 mg/dL LAB CHEMISTRY METHOD 04/18/2025 8:46 AM EDT [facility] Blood Venous blood specimen / Unknown Venipuncture / Unknown 04/18/2025 8:05 AM EDT 04/18/2025 8:18 AM EDT Mayra STEIN LAB BLOOD ORDERABLES Final R esult [facility] LAB [address] [place] [address], from Last 3 Months Insurance MEDICARE [facility] Care Teams Supervisor [employer]ing [employer] Relationship Specialty Start Date End Date Corrine Spangler MD [address] [place] [address] PCP - General Internal Medicine 02/23/25
--- OUTSIDE RECORDS SUMMARY | 2025-06-25 19:56 | XMS_ITS | Patient Health Record ---
Author Organization [facility] Address [address] [place] [address] Care Team Providers Care Assembler Skylights Name Role Phone Corrine Spangler MD Primary Care Provider Nishant Amaro Unavailable [phone] Allergies Allergen (clinical drug ingredient) Drug/Non Drug [...] W/U Status Risk Notes Problem Pancreatic cyst (55648696) Pancreatic cyst (K86.2) Active confirmed Problem Constipation (05852682) Constipation, unspecified constipation type (K59.00) Active confirmed Problem Left lower quadrant pain (866957821) Abdominal pain, left lower quadrant (R10.32) Active confirmed Problem Irritable bowel syndrome (69587248) Irritable bowel syndrome, unspecified type (K58.9) Active confirmed Problem Essential hypertension (55975827) Hypertension, unspecified type (I10) Active confirmed Plan Of Treatment No Information Insurance Providers Payer Name Payer Address Payer Phone Subscriber Number Group Number Insured Name Patient Relationship to Insured Coverage Start Date Coverage End Date MEDICARE OF [place] [address] [place] [address] [id number] HO[place] Self - patient is the insured [employer] [address] [place] [id number] HOOD [place]STILLO Self - patient is the insured Medical (General) History Medical History History ICD Code Chronic diarrhea/IBS-colonos copy biopsies negative for colitis in 1994 and labs neg. for celiac disease in 2009 Colon polyps-tubular adenoma s removed in 1999 and 2009-colonoscopy was negative in 2004 except for AVM's NIDDM Hyperlipidemia Hypertension Breast [id number] lumpectomy with XRT UTI's Denies FL,CVA,renal disease Bronchitis Pancreatic cysts seen on MRI in 09/[address] scan in November of 2022 Asthma Surgical History Surgery Date(Month/Year) Cholecystectomy JOANA Rectovaginal fistula repair in 1994 Bladder suspension Veins in LE's Breast cancer as above
== END 2025-06-25 15:11 | disposition home or self-care (01) ==
LOC: HO.HMGCLDS 15:10
PROVIDERS: PCP Internal Medicine; Visit Provider Internal Medicine
DX: R30.0 Dysuria (principal)
CPT/HCPCS: 81001; 87086

== ENCOUNTER 2025-07-05 08:45 | Outpatient (AMB) | payer MEDICARE, OTHER, SELFPAY ==
--- NOTE | 2025-07-05 08:49 | AM.OFFWIN_ITS ---
Intake Vital Signs 07/05/25 08:50 Height 5 ft 2 in BP 132/50 L Blood Pressure Location Lt brachial Position Sitting Pulse 78 Pulse Source Pulse Oximeter Temp 97.7 F Temp Source Oral Pulse Oximetry (%) 98 Oxygen Delivery Method Room Air Intake Visit Reasons: EP lower back ache burning pain when urinating Intake Note: Patient presents c/o UTI, burning, low back pain x3 weeks. Patient states had nitrofurantoin from previous visit that she only took 2 doses out of but it did not help. Patient Tobacco Use Status: Never used Tobacco Allergies alendronate sodium (From FOSAMAX) Allergy (Intermediate, Verified 07/05/25 09:01) DIARRHEA ciprofloxacin (CIPROFLOXACIN) Allergy (Intermediate, Verified 07/05/25 09:01) HEADACHE,SOB hydrochlorothiazide (HYDROCHLOROTHIAZIDE) Allergy (Intermediate, Verified 07/05/25 09:01) HEADACHE,DIZZINESS, Gi upset levofloxacin (From LEVAQUIN) Allergy (Intermediate, Verified 07/05/25 09:01) HEADACHE,SOB metformin (METFORMIN) Allergy (Intermediate, Verified 07/05/25 09:01) DIARRHEA, Gi upset pravastatin (PRAVASTATIN) Allergy (Intermediate, Verified 07/05/25 09:01) HEADACHE,SOB, Gi upset simvastatin (SIMVASTATIN) Allergy (Intermediate, Verified 07/05/25 09:01) HEADACHE,SOB, Gi upset canagliflozin (From INVOKANA) Adverse Reaction (Intermediate, Verified 07/05/25 09:01) DIARRHEA dapagliflozin (From FARXIGA) Adverse Reaction (Intermediate, Verified 07/05/25 09:01) DIARRHEA dulaglutide (From Trulicity) Adverse Reaction (Intermediate, Verified 07/05/25 09:01) skin bumps mannitol (From Reclast) Adverse Reaction (Verified 07/05/25 09:01) bone pain water for injection,sterile (From Reclast) Adverse Reaction (Verified 07/05/25 09:01) bone pain zoledronic acid (From Reclast) Adverse Reaction (Verified 07/05/25 09:01) bone pain From PERCOCET Adverse Reaction (Mild, Uncoded 07/05/25 09:01) NAUSEA Do you need a note to return to daycare/school/sports/work: No HPI HPI Comments History of Present Illness Details 84 y/o female presents to the walk[facility]in [facility] with 3 weeks of urinary symptoms including burning with urination, urgency, frequency, and low back pain. She reports Nitrofurantoin from a previous visit in 05/2025 but states it did not help her symptoms. She has a known history of recurrent UTIs and follows with Uro/Nephrology Nurse (Dr. Ferrell). Patient also reports some vaginal discharge. Denies fevers, chills, nausea, vomiting, abdominal pain, flank pain, hematuria, or incontinence PFSH Medical History Annual physical exam Asthma Diabetes mellitus HTN (hypertension) Diastolic dysfunction Family history of total abdominal hysterectomy and bilateral salpingo- oophorectomy (JOANA-BSO) Surgical History Hx of bilateral cataract extraction History of bladder suspension procedure History of lumpectomy of right breast History of trigger finger History of urethrocutaneous fistula Hx of hysterectomy Hx of section Hx of appendectomy Family History Father CAD (coronary artery disease) Mother Parkinson disease Mental health disorder Brother Diabetes Melanoma Social History Housing: House Alcohol intake: never Patient Tobacco Use Status: Never used Tobacco e-Cigarette/Vaping Use: Never Used Second Hand Smoke Exposure: No service: No Current occupational status: retired 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 Cognitive needs: No Hearing needs: No Vision needs: Yes Review of Systems Const All systems reviewed & are unremarkable except as noted in HPI and below Physical Exam Vital Signs: Last Vital Signs Temp 97.7 F 07/05/25 08:50 Pulse 78 07/05/25 08:50 BP 132/50 L 07/05/25 08:50 Pulse Ox 98 07/05/25 08:50 Oxygen Delivery Method Room Air 07/05/25 08:50 Const General: no acute distress Nutritional Appearance: obese Orientation/consciousness: patient oriented x3 General: Yes no CVA tenderness Back/Spine/Pelvis Back: no CVA tenderness Neuro General: patient oriented x3, gait normal and moves all extremities Psych Speech and movement: Normal speech and movement present Results AMB Urinalysis, Automated UA Leukoctes 125 Cuong/uL Last Edit by Tiff Brown CMA on 07/05/25 09:13 UA Nitrite Negative Last Edit by Tiff Brown CMA on 07/05/25 09:13 UA Urobilinogen 0.2 mg/dL Last Edit by Tiff Brown CMA on 07/05/25 09: 13 UA Protein 30 mg/dL Last Edit by Tiff Brown CMA on 07/05/25 09:13 UA pH 6.0 Last Edit by Tiff Brown, SABINA on 07/05/25 09:13 UA Blood 25 Chago/uL Last Edit by Tiff Brown, SABINA on 07/05/25 09:13 UA Specific [place] 1.025 Last Edit by Tiff Brown, SABINA on 07/05/25 09 :13 UA Ketone Negative Last Edit by Tiff Brown CMA on 07/05/25 09:13 UA Bilirubin 0 mg/dL Last Edit by Tiff Brown CMA on 07/05/25 09:13 UA Glucose 0 mg/dL Last Edit by Tiff Brown CMA on 07/05/25 09:13 Results Reviewed Results Reviewed: Laboratory Last Values Urine pH (Auto) 6.0 07/05/25 09:09 Specific [place] (Auto) 1.025 07/05/25 09:09 Urine Protein (Auto) 30 mg/dL H* 07/05/25 09:09 Glucose (UA)(Auto) 0 mg/dL 07/05/25 09:09 Urine Ketones (Auto) Negative 07/05/25 09:09 Urine Blood (Auto) 25 Chago/uL H* 07/05/25 09:09 Urine Nitrite (Auto) Negative 07/05/25 09:09 Urine Bilirubin (Auto) 0 mg/dL 07/05/25 09:09 Urine Urobilinogen (Auto) 0.2 mg/dL 07/05/25 09:09 Leukocyte Esterase (Auto) 125 Cuong/uL H* 07/05/25 09:09 Assessment & Plan Assessment & Plan (1) Recurrent UTI: Comment: Established with [facility] Urology Code(s): N39.0 - Urinary tract infection, site not specified Plan: Symptoms consistent with lower urinary tract infection. Treatment failure with Nitrofurantoin raises concern for resistance. Urinalysis Pos for CUONG. Will send Urine for C&S. Performed Vaginal Swab for BV/Fungal. Ordered Cefdinir 300 mg BID for 5 days. Follow up with Uro/Nephrology Nurse once culture returns or if symptoms persist. Orders: Orders AMB Urinalysis Automated Today Z13.9 - Encounter for screening, unspecified Medications: New cefdinir 300 mg PO BID 10 caps 0RF 5 days N39.0 - Urinary tract infection, site not specified Coding Level of Care Code Est Pt Level 4 (13512) Diagnoses Recurrent UTI N39.0 Time Spent (min) 20
[2025-07-05 08:50] VITALS: BP 132/50; PULSE 78; TEMP 36.5; O2SAT 98
--- OUTSIDE RECORDS SUMMARY | 2025-07-05 09:29 | XMS_ITS | Encounter Summary ---
Author Organization [facility] [address] Address [address] [place] [address] Care Team Providers Care Correspondence Transcriber Name Role Phone Corrine Spangler MD Primary Care Provider Encounter Details Date Type Department Care Team (Late st Contact Info) Description 02/23/2025 Lab Requisition [facility] Lab [address] [facility] [place] [address] Mamadou Schmid, EMIL [address] [place], [place] [id number] Urinary tract infection, site not specified Social [...] [place] 02/25/2025 10:20 AM EDT [facility] Comment: This is an edited [...] complex Trimethoprim/Sulfamethoxazo le [place] <=20 ug/ml: Susceptible [facility] MICROBIOLOGY - [facility] Final Result [facility] ([facility]) [facility] [address] [place] [address], documented in this encounter Visit Diagnoses Diagnosis Urinary tract infection, site not specified documented in this encounter Care Teams Correspondence Transcriber Relationship Specialty Start Date End Date Corrine Spangler MD [address] [place] [address] PCP - General Internal Medicine 02/23/25 documented as of this encounter
--- OUTSIDE RECORDS SUMMARY | 2025-07-05 09:29 | XMS_ITS | Clinical Summary ---
Author Organization [address] [facility] Address [address] [place] [address] Phone Care Team Providers Care Exceptional Children Teacher Name Role Phone Corrine Spangler MD Primary Care Provider [phone] Allergies Active Allergy Reactions Criticality Noted Date Comments Ciprofloxacin 04/18/2025 Hydrochlorothiazide 04/18/2025 Levofloxacin 04/18/2025 Lidocaine 04/18/2025 Metformin 04/18/2025 Pravastatin 04/18/2025 Simvastatin 04/18/2025 Sulfa (Sulfonamide Antibiotics) GI intolerance 04/18/2025 Encounters Date Type Department Care Team Description 04/18/2025 7:31 AM EDT - 04/18/2025 4:50 PM EDT Emergency [facility] Emergency [address] [place] [address] Dolores Tong DO Cystitis (Primary [...] and culture (04/18/2025 8:33 AM EDT) Specific [place] Urine 1.020 1.003 - 1.030 LAB URINALYSIS - AUTOMATED METHOD 04/18/2025 9:31 AM [facility] pH, Urine 5.5 5.0 - 8.0 pH LAB URINALYSIS - AUTOMATED METHOD 04/18/2025 9:31 AM [facility] Leukocytes, Urine Large(A) Negative LAB URINALYSIS - AUTOMATED METHOD 04/18/2025 9:31 AM [facility] Nitrite, Urine Positive(A) Negative LAB URINALYSIS - AUTOMATED METHOD 04/18/2025 9:31 AM [facility] Protein, Urine 100(A) <=Trace mg/dL LAB URINALYSIS - AUTOMATED METHOD 04/18/2025 9:31 AM [facility] Glucose, Urine 100(A) Negative mg/dL LAB URINALYSIS - AUTOMATED METHOD 04/18/2025 9:31 AM [facility] Ketones, Urine Negative Negative mg/dL LAB URINALYSIS - AUTOMATED METHOD 04/18/2025 9:31 AM [facility] Urobilinogen , Urine 0.2 0.2 - 1.0 mg/dL LAB URINALYSIS - AUTOMATED METHOD 04/18/2025 9:31 AM [facility] Bilirubin, Urine Negative Negative LAB URINALYSIS - AUTOMATED METHOD 04/18/2025 9:31 AM [facility] Blood, Urine Moderate(A) Negative LAB URINALYSIS - AUTOMATED METHOD 04/18/2025 9:31 AM [facility] RBC, Urine 44.8(H) 0 - 4 /HPF LAB URINALYSIS - AUTOMATED METHOD 04/18/2025 9:31 AM [facility] WBC, Urine 1,526.1(H) 0 - 4 /HPF LAB URINALYSIS - AUTOMATED METHOD 04/18/2025 9:31 AM [facility] Squamous Epithelial, Urine 28 0 - 60 /LPF LAB URINALYSIS - AUTOMATED METHOD 04/18/2025 9:31 AM [facility] Bacteria, Urine Many(A) Negative /HPF LAB URINALYSIS - AUTOMATED METHOD 04/18/2025 9:31 AM [facility] Hyaline Casts, Urine 0.6 0 - 3 /LPF LAB URINALYSIS - AUTOMATED METHOD 04/18/2025 9:31 AM [facility] Yeast, Urine Present(A) None /HPF LAB URINALYSIS - AUTOMATED METHOD 04/18/2025 9:31 AM [facility] Urine Urine specimen obtained by clean catch procedure / Unknown Non-blood Collection / Unknown 04/18/2025 8:33 AM EDT 04/18/2025 9:00 AM EDT Mayra STEIN LAB URINE ORDERABLES Final R esult Performing Organization Address [facility]/ZIP Co de Phone Number [facility] [address] [place] [address], [place] [phone] * León urine culture tube (04/18/2025 8:33 AM EDT) Extra Tube Hold for add-ons. 04/18/2025 10:01 AM EDT [facility] Comment:Auto resulted. Urine Urine specimen obtained by clean catch procedure / Unknown Non-blood Collection / Unknown 04/18/2025 8:33 AM EDT 04/18/2025 9:00 AM [facility]T [facility] URINE ORDERABLES Final R esult Performing Organization Address [facility] Co de Phone Number [facility] [address] [place] [address], [place] [phone] * (ABNORMAL) Culture urine (04/18/2025 8:33 AM EDT) Pathologist [facility] Culture, Urine 50,000-100,000 CFU/mL Enterobacter cloacae complex(A) [place] 04/20/2025 8:20 AM EDT [facility] Comment: This is an edited [...] MICROBIOLOGY - GENERAL O RDERABLES Final Result [facility] [address] [place] [address], * (ABNORMAL) CBC auto differential (04/18/2025 8:05 AM EDT) WBC 6.9 4.8 - 10.8 K/mcL LAB HEMETOLOGY METHOD 04/18/2025 8:31 AM EDT [facility] RBC 3.90 3.80 - 4.80 M/mcL LAB HEMETOLOGY METHOD 04/18/2025 8:31 AM EDT [facility] Hemoglobin 11.5 11.5 - 16.0 g/dL LAB HEMETOLOGY METHOD 04/18/2025 8:31 AM EDT [facility] Hematocrit 35.4 35.0 - 47.0 % LAB HEMETOLOGY METHOD 04/18/2025 8:31 AM EDT [facility] MCV 89.8 79.0 - 98.0 FL LAB HEMETOLOGY METHOD 04/18/2025 8:31 AM EDT [facility] MCH 29.2 27.0 - 32.0 pcg LAB HEMETOLOGY METHOD 04/18/2025 8:31 AM EDT [facility] MCHC 32.5 32.0 - 37.0 g/dL LAB HEMETOLOGY METHOD 04/18/2025 8:31 AM [facility] RDW 13.7 11.0 - 15.0 % LAB HEMETOLOGY METHOD 04/18/2025 8:31 AM [facility] Platelets 165 130 - 400 K/mcL LAB HEMETOLOGY METHOD 04/18/2025 8:31 AM [facility] MPV 9.8 7.0 - 11.0 FL LAB HEMETOLOGY METHOD 04/18/2025 8:31 AM [facility] NRBC 0.0 <1.0 % LAB HEMETOLOGY METHOD 04/18/2025 8:31 AM [facility] NRBC Absolute 0.00 <0.10 K/mcL LAB HEMETOLOGY METHOD 04/18/2025 8:31 AM [facility] Neutrophils Relative 74.7 % LAB HEMETOLOGY METHOD 04/18/2025 8:31 AM [facility] Lymphocytes Relative 12.1 % LAB HEMETOLOGY METHOD 04/18/2025 8:31 AM [facility] Monocytes Relative 9.7 % LAB HEMETOLOGY METHOD 04/18/2025 8:31 AM [facility] Eosinophils Relative 2.5 % LAB HEMETOLOGY METHOD 04/18/2025 8:31 AM [facility] Basophils Relative 0.6 % LAB HEMETOLOGY METHOD 04/18/2025 8:31 AM [facility] Immature Granulocytes Relative 0.4 % LAB HEMETOLOGY METHOD 04/18/2025 8:31 AM [facility] Neutrophils Absolute 5.17 1.50 - 7.00 K/mcL LAB HEMETOLOGY METHOD 04/18/2025 8:31 AM [facility] Lymphocytes Absolute 0.84(L) 1.00 - 5.00 K/mcL LAB HEMETOLOGY METHOD 04/18/2025 8:31 AM EDT [facility] Monocytes Absolute 0.67 0.20 - 1.00 K/[facility] LAB HEMETOLOGY METHOD 04/18/2025 8:31 AM EDT [facility] Eosinophils Absolute 0.17 0.00 - 0.50 K/[facility] LAB HEMETOLOGY METHOD 04/18/2025 8:31 AM EDT [facility] Basophils Absolute 0.04 0.00 - 0.20 K/[facility] LAB HEMETOLOGY METHOD 04/18/2025 8:31 AM EDT [facility] Immature Granulocytes Absolute 0.03 0.00 - 0.03 K/[facility] LAB HEMETOLOGY METHOD 04/18/2025 8:31 AM EDT [facility] Blood Venous blood specimen / Unknown Venipuncture / Unknown 04/18/2025 8:05 AM EDT 04/18/2025 8:18 AM EDT us Mayra STEIN LAB BLOOD ORDERABLES Final R esult Performing Organization Address City/State/[facility] Co de Phone Number [facility] [address] [place] [address], * Type and screen (04/18/2025 8:05 AM EDT) ABO Group A 04/18/2025 10:06 AM EDT [facility] Rh Type Positive 04/18/2025 10:06 AM EDT [facility] Antibody Screen Negative 04/18/2025 10:06 AM EDT [facility] Blood Venous blood specimen / Unknown Venipuncture / Unknown 04/18/2025 8:05 AM EDT 04/18/2025 8:18 AM EDT us Mayra STEIN LAB BLOOD BANK TEST ORDERABL ES Final Result [facility] [address] [place] [address], * (ABNORMAL) Basic metabolic panel (04/18/2025 8:05 AM EDT) Sodium 138 133 - 145 mmol/L LAB CHEMISTRY METHOD 04/18/2025 8:46 AM [facility] Potassium 3.7 3.5 - 5.5 mmol/L LAB CHEMISTRY METHOD 04/18/2025 8:46 AM [facility] Chloride 106 96 - 110 mmol/L LAB CHEMISTRY METHOD 04/18/2025 8:46 AM [facility] CO2 26 21 - 32 mmol/L LAB CHEMISTRY METHOD 04/18/2025 8:46 AM [facility] Anion Gap 6 3 - 11 LAB CHEMISTRY METHOD 04/18/2025 8:46 AM [facility] Glucose 240(H) 70 - 100 mg/dL LAB CHEMISTRY METHOD 04/18/2025 8:46 AM [facility] BUN 18 5 - 25 mg/dL LAB CHEMISTRY METHOD 04/18/2025 8:46 AM [facility] Creatinine 0.70 0.50 - 1.10 mg/dL LAB CHEMISTRY METHOD 04/18/2025 8:46 AM [facility] eGFR 84 >=60 mL/min/1. 73m2 LAB CHEMISTRY METHOD 04/18/2025 8:46 AM [facility] Comment:Calculation based on the Chronic Kidney Disease Epidemiology Collaboration (CKD-EPI) equation refit without adjustment for race. BUN/Creatinine Ratio 25.7 LAB CHEMISTRY METHOD 04/18/2025 8:46 AM [facility] Calcium 9.4 8.5 - 10.5 mg/dL LAB CHEMISTRY METHOD 04/18/2025 8:46 AM EDT [facility] Blood Venous blood specimen / Unknown Venipuncture / Unknown 04/18/2025 8:05 AM EDT 04/18/2025 8:18 AM EDT Mayra STEIN LAB BLOOD ORDERABLES Final R esult [facility] [address] [place] [address], from Last 3 Months Insurance MEDICARE [facility] Care Teams Exceptional Children Teacher Relationship Specialty Start Date End Date Corrine Spangler MD [address] [place] [address] PCP - General Internal Medicine 02/23/25
== END 2025-07-05 09:39 | disposition home or self-care (01) ==
PROVIDERS: PCP Internal Medicine; Visit Provider Nurse Practitioner Family
DX: Z13.9 Encounter for screening, unspecified (principal); N39.0 Urinary tract infection, site not specified

== ENCOUNTER 2025-07-05 08:45 | Outpatient (REF) | payer MEDICARE, OTHER, SELFPAY ==
--- OUTSIDE RECORDS SUMMARY | 2024-02-04 09:00 | XMS_ITS ---
Author Organization [facility] Address [address] [place] [address] Care Team Providers Care Gold Prospector Name Role Phone Corrine Spangler MD Primary Care Provider UnavailReese Pastor Unavailable [phone] Brittany Zepeda Unavailable [phone] REASON FOR VISIT Seen Sooner Encounters Encounter Location Date Provider Diagnosis [address] [address] 02/04/2024 Brittany Zepeda Plan Of Treatment Next Appt Details Provider Name:Reese Garcia , 07/24/2025 02:45:00 PM, [address] [place] [address], [phone], Progress Notes * Genie RAO EDOB:1 09/27/1939 (84 yo F)Acc No.[id number]:02/04/2024 Progress Note Patient: Genie BARRAZA Provider: Nickolas Zepeda DPM :1940 A ge:83 Y S ex:Female Date:02/04/2024 Address:[address] [place], [place] [id number] Pcp:Corrine Spangler MD Subjective: * Chief Complaints: [...] 0 02/04/2024 Generated for Mary Sarah on: 09/05/2024 12:41 PM EST
--- OUTSIDE RECORDS SUMMARY | 2024-06-20 05:45 | XMS_ITS ---
Author Organization [facility] Address [address] [place] [address] Care Team Providers Care Relocation Associate Name Role Phone Corrine Spangler MD Primary Care Provider Reese Mancilla Unavailable [phone] Encounters Encounter Location Date Provider Diagnosis [address] [address] 06/20/2024 Reese Garcia Plan Of Treatment Next Appt Details Provider Name:Reese Garcia , 07/24/2025 02:45:00 PM, [address] [place] [address], [phone], Progress Notes * Genie RAO EDOB:1 09/27/1939 (84 yo F)Acc No.[id number]:06/20/2024 Progress Note Patient: Genie BARRAZA Provider: Hermelinda Garcia DPM :1940 A ge:83 Y S ex:Female Date:06/20/2024 Address:[address] [place], [place] [id number] Pcp:Corrine Spangler MD Subjective: * Chief Complaints: * * Medical History: Objective: * Vitals: Assessment: Plan: * Treatment: * Images: * The named appointment provid er may or may not be the originator of this progress note, and it is not deemed complete until electronically signed by the appointment provider. Sign off status: Pending * Provider: Hermelinad Garcia DPM Date: 08/20/2023 Generated for Mary quezada/Caridad on: 09/05/2024 12:41 PM EST
--- OUTSIDE RECORDS SUMMARY | 2025-02-16 08:45 | XMS_ITS ---
Author Organization [facility] Address [address] [place] [address] Care Team Providers Care Direct Of Real Estate Name Role Phone Corrine Spangler MD Primary Care Provider Reese Mancilla Unavailable [phone] Allergies Allergen (clinical drug ingredient) Drug/Non Drug [...] MG 2 tablets Orally Active Ozempic Active [place] 3 Active Encounters Encounter Location Date Provider Diagnosis [facility] [address] [address] 02/16/2025 Reese Garcia Plan Of Treatment Next Appt Details Provider Name:Reese Garcia , 07/24/2025 02:45:00 PM, [address] [place] [address], [phone], Progress Notes * Genie RAO EDOB:1 09/27/1939 (84 yo F)Acc No.[id number]:02/16/2025 Progress Note Patient: Nilsa Genie CHANG Provider: Raquel Garcia DPM :1940 A ge:84 Y S ex:Female Date:02/16/2025 Address:[address] [place], [place] [id number] Pcp:Corrine Spangler MD Subjective: * Chief Complaints: * * Medical History: A rthritis, Asthma, Back,Hip,and Knee pain, Cancer, Cataracts, Diabetes mellitus type 2 , Gall bladder problems, High blood pressure, Polio, Chronic sinusitis, Measles, Mumps, Chicken pox, Transfusions, Reflux. * Medications: T kota Stuart , Taking [place] 3 , Taking Albuterol , Taking dilTIAZem [...] DPM Date: 0 02/16/2025 Generated for Mary quezada/Caridad on: 09/05/2024 12:40 PM EST
--- OUTSIDE RECORDS SUMMARY | 2025-05-08 08:30 | XMS_ITS ---
Author Organization [facility] Address [address] [place] [address] Care Team Providers Care Slate Roofer Name Role Phone Corrine Spangler MD Primary Care Provider Reese Mancilla Unavailable [phone] Encounters Encounter Location Date Provider Diagnosis [address] [address] 05/08/2025 Reese Garcia Plan Of Treatment Next Appt Details Provider Name:Reese Garcia , 07/24/2025 02:45:00 PM, [address] [place] [address], [phone], Progress Notes * Genie RAO EDOB:1 09/27/1939 (84 yo F)Acc No.[id number]:05/08/2025 Progress Note Patient: Genie BARRAZA Provider: Hermelinda Garcia DPM :1940 A ge:84 Y S ex:Female Date:05/08/2025 Address:[address] [place], [place] [id number] Pcp:Corrine Spangler MD Subjective: * Chief Complaints: * * Medical History: Objective: * Vitals: Assessment: Plan: * Treatment: * Images: * The named appointment provid er may or may not be the originator of this progress note, and it is not deemed complete until electronically signed by the appointment provider. Sign off status: Pending * Provider: Hermelinda Garcia DPM Date: 1 Generated for Mary quezada/Caridad on: 09/05/2024 12:40 PM EST
--- OUTSIDE RECORDS SUMMARY | 2025-07-05 12:41 | XMS_ITS | Patient Health Record ---
[facility] Organization [facility] Address [address] [place] [address] Care Team Providers Care Drum Saw Operator Name Role Phone Corrine Spangler MD Primary Care Provider Reese Mancilla Unavailable [phone] Allergies Allergen (clinical drug ingredient) Drug/Non Drug [...] Trulicity 3 MG/0.5ML as directed Subcutaneous Not-Taking Flatgap 3 Not-Taking Losartan Potassium 100 MG Orally [...] Problem Acquired hammer toe of right foot (2978479852406 105) Other hammer toe(s) (acquired), right foot (M20.41) Active confirmed Response to treatment,I mprovement Problem Type 2 diabetes mellitus with peripheral angiopathy (312166765) Type 2 diabetes mellitus with diabetic peripheral angiopathy without gangrene (E11.51) Active confirmed Q7(A), Q8(2B), Q9(1B,2C) Problem Acquired hammer toe of left foot (4126248690697 103) Other hammer toe(s) (acquired), left foot (M20.42) Active confirmed Response to treatment,I mprovement Vital Signs Blood pressure diastolic 60 mm Hg 04/10/2025 Height 5 ft 1 in in 04/10/2025 Blood pressure systolic 120 mm Hg 04/10/2025 Weight 142 lbs 04/10/2025 BMI 26.83 kg/m2 04/10/2025 Procedures Procedure Date Ordered Date Performed Result Body Sit e 60607-GEBJLML NAIL, 6 OR MORE 08/22/2024 N/A 44291-ESOF SKIN LESIONS, OVER 4 08/22/2024 N/A 86388-RSIUCTX NAIL, 6 OR MORE 11/14/2024 N/A 49771-VBNM SKIN LESIONS, OVER 4 11/14/2024 N/A 56311-NVFEVZR NAIL, 6 OR MORE 04/10/2025 N/A 05377-GZVN SKIN LESIONS, OVER 4 04/10/2025 N/A Encounters Encounter Location Date Provider Diagnosis [address] [address] 08/22/2024 Reeseedelmira WellsJose Type 2 diabetes mellitus with diabetic peripheral angiopathy without gangrene E11.51 ; Tinea unguium B35.1 ; Pain in right toe(s) M79.674 ; Pain in left toe(s) M79.675 ; Other hammer toe(s) (acquired), right foot M20.41 and Other hammer toe(s) (acquired), left foot M20.[address] [address] 11/14/2024 Reese Wellsunier Type 2 diabetes mellitus with diabetic peripheral angiopathy without gangrene E11.51 ; Tinea unguium B35.1 ; Pain in right toe(s) M79.674 and Pain in left toe(s) M79.675 [facility] [address] [address] 04/10/2025 Reese Garcia Type 2 diabetes mellitus with diabetic peripheral angiopathy without gangrene E11.51 ; Tinea unguium B35.1 ; Pain in right toe(s) M79.674 ; Pain in left toe(s) M79.675 ; Other hammer toe(s) (acquired), left foot M20.42 and Other hammer toe(s) (acquired), right foot M20.41 [facility] [address] [address] 02/15/2025 Reese Jose Assessments Encounter Date Diagnosis [...] Test Name Order Date Hemoglobin A1c 09/03/2015 66066-LGEIOFA NAIL, 6 OR MORE 12/06/2015 12824-DEHWWKA NAIL, 6 OR MORE 09/03/2015 38513-GQTJYHC NAIL, 6 OR MORE 03/10/2016 64950-ERASAWC NAIL, 6 OR MORE 06/09/2016 07368-OBOCQGA NAIL, 6 OR MORE 09/01/2016 36061-LHIZQCL NAIL, 6 OR MORE 11/24/2016 33603-ILIRUHO NAIL, 6 OR MORE 04/18/2021 02689-CIUNJIJ NAIL, 6 OR MORE 07/04/2021 25300-CLLQECX NAIL, 6 OR MORE 09/16/2021 62565-WTBCAGV NAIL, 6 OR MORE 02/16/2017 91350-PHLDXJV NAIL, 6 OR MORE 04/27/2017 86669-JKYVQFO NAIL, 6 OR MORE 07/20/2017 02146-WHMLTKL NAIL, 6 OR MORE 09/28/2017 99793-HAGMOWU NAIL, 6 OR MORE 11/30/2017 87616-MHLMGQO NAIL, 6 OR MORE 02/15/2018 86011-LVMIOBT NAIL, 6 OR MORE 05/10/2018 97225-DLPEYKF NAIL, 6 OR MORE 08/19/2018 30923-NFMQYQU NAIL, 6 OR MORE 11/04/2018 21397-CGMGTOS NAIL, 6 OR MORE 01/24/2019 28536-AJMOBSN NAIL, 6 OR MORE 06/13/2019 73692-WQQZPRW NAIL, 6 OR MORE 08/22/2019 79083-BNGEGWB NAIL, 6 OR MORE 10/31/2019 63939-NPYNPAD NAIL, 6 OR MORE 01/09/2020 82452-GLZHOOB NAIL, 6 OR MORE 03/19/2020 95828-AUYSSZG NAIL, 6 OR MORE 06/21/2020 18494-JPEKVKA NAIL, 6 OR MORE 08/30/2020 85748-JRLGAGY NAIL, 6 OR MORE 11/05/2020 01033-YRIMFOA NAIL, 6 OR MORE 01/10/2021 41859-FIJTNTX NAIL, 6 OR MORE 11/25/2021 15642-XKWPBYO NAIL, 6 OR MORE 01/30/2022 67983-MFBVKOB NAIL, 6 OR MORE 04/14/2022 23635-MKIWYAS NAIL, 6 OR MORE 08/07/2022 27768-EQZIBZA NAIL, 6 OR MORE 10/16/2022 27836-ORQDSFR NAIL, 6 OR MORE 01/05/2023 80683-PFTWJOA NAIL, 6 OR MORE 03/16/2023 95868-KFFNIRU NAIL, 6 OR MORE 05/25/2023 77026-SALICGU NAIL, 6 OR MORE 08/06/2023 12169-PXAIKMW NAIL, 6 OR MORE 10/19/2023 06333-VTHPCEZ NAIL, 6 OR MORE 03/21/2024 94794-RDZAMHU NAIL, 6 OR MORE 06/07/2024 82270-TGWPBDB NAIL, 6 OR MORE 08/22/2024 00920-KQAKXCO NAIL, 6 OR MORE 11/14/2024 51704-SVPZJYQ NAIL, 6 OR MORE 04/10/2025 37293-Wfaamszk Plate 01/10/2021 43281-Exrzrrkx Plate 11/24/2016 36029-Yiohhbqp Plate 09/01/2016 74778-Btuqjauy Plate 06/09/2016 66611-Caxyyvsw Plate 03/10/2016 00057-Ykvorjix Plate 09/03/2015 64775-Hlnjufso Plate 12/06/2015 41370-DZCU SKIN LESIONS, OVER 4 04/10/20 25 06784-BBZZ SKIN LESIONS, OVER 4 11/15/19 25 92015-KFPY SKIN LESIONS, OVER 4 08/22/19 25 61509-GCMM SKIN LESIONS, OVER 4 06/07/20 24 58171-CBGF SKIN LESIONS, OVER 4 10/19/19 24 52752-WFNS SKIN LESIONS, OVER 4 03/21/20 24 27582-PPGM SKIN LESIONS, OVER 4 08/06/19 24 53594-PDRJ SKIN LESIONS, OVER 4 05/25/20 23 76830-KBLS SKIN LESIONS, OVER 4 03/16/20 23 10547-VYIE SKIN LESIONS, 2 TO 4 01/06/20 23 32155-TFAN SKIN LESIONS, 2 TO 4 10/17/19 23 64208-KJER SKIN LESIONS, 2 TO 4 08/07/19 23 64511-MWJS SKIN LESIONS, 2 TO 4 04/14/20 22 71533-FBPT SKIN LESIONS, 2 TO 4 01/31/20 22 28840-XUIY SKIN LESIONS, 2 TO 4 11/26/19 22 75806-AMEC SKIN LESIONS, 2 TO 4 09/16/19 22 19060-VDRF SKIN LESIONS, 2 TO 4 07/04/20 Next Appt Details Provider Name:Reese Garcia , 07/24/2025 02:45:00 PM, [address] [place], [address], Insurance Providers Payer Name Payer Address Payer Phone Subscriber Number Group Number Insured Name Patient Relationship to Insured Coverage Start Date Coverage End Date Medicare [facility] [address] [place] [address] [id number] Genie Escalera Self - patient is the insured [address] [place] [address] [place] [id number] [id number] Genie Escalera Self - patient is the insured Medical (General) History Medical History History ICD Code Arthritis Asthma Back,Hip,and Knee pain Cancer Cataracts Diabetes mellitus type 2 Gall bladder problems High blood pressure Polio chronic sinusitis Measles Mumps Chicken pox Transfusions Reflux Surgical History Surgery Date(Month/Year) gall bladder 1967 breast surgery hysterectomy bladder suspension vein surgery (LT leg) right carpal tunnel [facility] 05/04/2018 hand surgery- trigger finger right 2020 sx underarm 12/15/21 Hospitalization History Reason Date(Month/Year) [facility]- back ache 03/[address] [facility] ER-Coronavirus symptoms- not tested- said asthma and allergies 10/24/[address] [facility]- ER for coughing- lesion found in samuel ngs 09/13/2017 pneumonia 11/24-11/26/15
--- OUTSIDE RECORDS SUMMARY | 2025-07-05 12:41 | XMS_ITS | Data Portability ---
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 Plan of Treatment Reminders Order Date Submit Date Provider Last Modified By Organization Details Last Modified Time Details Appointments None recorded. Lab urinalysis , dipstick 2022 023 [facility], [address] [place] [address], [phone], 3 09:13:00 glucose, fingerstic k, blood 2022 023 [facility], [address] [place] [address], [phone], 3 09:13:00 culture, urine 2022 023 [place] [facility], [address] [place] [address], [place], [address], 3 16:06:30 Referral None recorded. Procedures None recorded. Surgeries None recorded. Imaging None recorded. Medication Orders Macrobid 100 mg capsule 2022 023 [place] [id number], [address] [place], [address], 3 09:13:03 Patient TargetsNo targets recorded. 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 and/or primary care provider to examine or [...] green veggies (e.g., broccoli, spinach, brussels sprouts) Refugio veggies (e.g., carrots, sweet potatoes, pumpkin, winter [...] calluses are present, ask a doctor or ross carrier driver about the best way to care for [...] routine FINAL REPORT abnormal Not Available [facility] ([facility]) [address] [place], [address], 11/14/2022 08:07:39 11/08/1911/14/2022 URINE CULTU RE, ROUTI NE result 1 ENTERO BACTER SPECIE S abnormal 50,00 0-100 ,000 colon y formi ng units per mL Not Available [facility] ([facility]) [address] [facility], [place], [address], 11/14/2022 08:07:39 11/08/1911/14/2022 URINE CULTU RE, ROUTI [...] thopr im/Lopez lfa S Not Available [facility] ([facility]) [address] [facility], [place], [address], 11/14/2022 08:07:39 11/08/1911/07/2022 gluco se, finge rstic k, blood blood sugar - non fasting 221 mg/dL 80-140 = normal Not Available [address], [place], [address], 11/07/2022 08:38:45 11/08/19 23 11/07/2022 gluco se, finge rstic k, blood blood sugar - fasting mg/dL 80-125 = normal Not Available [address], [place], [address], 11/07/2022 08:38:45 11/08/19 23 11/07/2022 urina lysis , dipst ick Unknown Analyte Normal = light yellow Not Available [address], [place], [address], 11/07/2022 08:31:12 11/08/19 23 11/07/2022 urina lysis , dipst ick Unknown Analyte Yellow Not Available [address], [place], [address], 11/07/2022 08:31:12 11/08/19 23 11/07/2022 urina lysis , dipst ick Unknown Analyte Normal = clear Not Available [address], [place], [address], 11/07/2022 08:31:12 11/08/19 23 11/07/2022 urina lysis , dipst ick Unknown Analyte Clear Not Available [address], [place], [address], 11/07/2022 08:31:12 04/08/11/07/2022 urina lysis , dipst ick Unknown Analyte Normal = negati ve Not Available [facility] [address], [place], [address], 11/07/2022 08:31:12 11/08/19 23 11/07/2022 urina lysis , dipst ick Unknown Analyte 250 mg/dL Not Available [facility] [address], [place], [address], 11/07/2022 08:31:12 11/08/19 23 11/07/2022 urina lysis , dipst ick Unknown Analyte Normal = Negati ve Not Available [facility] [address], [place], [address], 11/07/2022 08:31:12 11/08/19 23 11/07/2022 urina lysis , dipst ick Unknown Analyte Negati ve Not Available [facility]e blankens[facility] [address], [place], [address], 11/07/2022 08:31:12 11/08/19 23 11/07/2022 urina lysis , dipst ick Unknown Analyte Normal = Negati ve Not Available [facility]e blankens[facility] [address], [place], [address], 11/07/2022 08:31:12 11/08/19 23 11/07/2022 urina lysis , dipst ick Unknown Analyte Negati ve Not Available pete blankenship [address], [place], [place], [address], 11/07/2022 08:31:12 11/08/19 23 11/07/2022 urina lysis , dipst ick Unknown Analyte Normal = 1.010, 1.015, 1.020 Not Available pete blankenship [address], [place], [place], [address], 11/07/2022 08:31:12 11/08/19 23 11/07/2022 urina lysis , dipst ick Unknown Analyte 1.030 Not Available [facility] [address], [place], [address], 11/07/2022 08:31:12 11/08/19 23 11/07/2022 urina lysis , dipst ick Unknown Analyte Normal = Negati ve Not Available pete blankenship [address], [place], [address], 11/07/2022 08:31:12 11/08/19 23 11/07/2022 urina lysis , dipst ick Unknown Analyte Trace- intact Not Available [facility] [address], [place], [address], 11/07/2022 08:31:12 11/08/19 23 11/07/2022 urina lysis , dipst ick Unknown Analyte Normal = 6.5, 7.0, 7.5, 8.0 Not Available [facility] [address], [place], [address], 11/07/2022 08:31:12 11/08/19 23 11/07/2022 urina lysis , dipst ick Unknown Analyte 5.5 Not Available [address], [place], [address], 11/07/2022 08:31:12 11/08/19 23 11/07/2022 urina lysis , dipst ick Unknown Analyte Normal = Negati ve Not Available [address], [place], [address], 11/07/2022 08:31:12 11/08/19 23 11/07/2022 urina lysis , dipst ick Unknown Analyte 30 mg/dL Not Available pete blankenship [address], [place], [address], 11/07/2022 08:31:12 11/08/1911/07/2022 urina lysis , dipst ick Unknown Analyte Normal = 0.2, 1.0 Not Available [address] [place] [address], [place], [address], 11/07/2022 08:31:12 11/08/19 23 11/07/2022 urina lysis , dipst ick Unknown Analyte 0.2 E.U./d L Not Available [facility] [address], [place], [address], 11/07/2022 08:31:12 11/08/19 23 11/07/2022 urina lysis , dipst ick Unknown Analyte Normal = Negati ve Not Available [address], [place], [address], 11/07/2022 08:31:12 11/08/1911/07/2022 urina lysis , dipst ick Unknown Analyte Negati ve Not Available [address] [place] [address], [place], [address], 11/07/2022 08:31:12 11/08/19 23 11/07/2022 urina lysis , dipst ick Unknown Analyte Normal = Negati ve Not Available [facility] [address], [place], [address], 11/07/2022 08:31:12 11/08/19 23 11/07/2022 urina lysis , dipst ick Unknown Analyte Small Not Available [address] [place] [address], [place], [address], 11/07/2022 08:31:12 Result Notes None recorded. Problems Name Problem SNOMED Code Status Onset Date Resolution Date Notes Provider Name and Address Organization Details Recorded Time Diabetes mellitus 05017268 Active 2022 OLIVIA DEPINTO null, PA - [facility] 3 08:21:08 Osteoporosi s 43781732 Active 2022 OLIVIA DEPINTO null, PA - [facility] 3 08:21:27 Gastroesoph ageal reflux disease 449085248 Active 2022 OLIVIA DEPINTO null, PA - [facility] 3 08:21:32 Hypertensiv e disorder 89094146 Active 2022 OLIVIA DEPINTO null, PA - [facility] 3 08:21:37 Asthma 181777116 Active 2022 OLIVIA DEPINTO null, PA - [facility] 3 08:21:49 Malignant neoplasm of breast 966951325 Completed 202211/07/20222003 OLIVIA DEPINTO null, PA - [...] Name and Address Organization Details Recorded Time 969223 hydrochlo rothiazid e medicatio n diarrhea Not available Not available 11/07/2022 5487 RxNorm OLIVIA DEPINTO null, PA - [facility] 3 08:18:50 372242 pravastat in medicatio n diarrhea Not available Not available 11/07/2022 28911 RxNorm OLIVIA DEPINTO null, PA - [facility] 3 08:19:10 969777 metformin medicatio n diarrhea Not available Not available 11/07/2022 6809 RxNorm OLIVIA DEPINTO null, PA - [facility] 3 08:19:19 547335 ciproflox acin medicatio n diarrhea Not available Not available 11/07/2022 2551 RxNorm OLIVIA DEPINTO null, PA - [facility] 3 08:19:43 463240 alendrona te sodium medicatio n diarrhea Not available Not available 11/07/2022 73600 2 RxNorm OLIVIA DEPINTO null, PA - [facility] 3 08:19:52 117482 Farxiga medicatio n diarrhea Not available Not available 11/07/2022 81749 72 RxNorm OLIVIA DEPINTO null, PA - [...] Updated DateTime 3 154.94 cm 27 kg/m2 28343.7 1 g 0 18 /min 97.2 [degF] 96 % 75 /min 151/73 mm[Hg] OLIVIA KAHN PA - [employer] [facility] 3 08:27:08 Social History Question Answer Notes LastModified by [employer] Details LastModified Time Tobacco Smoking Status Never Smoker OLIVIA vergara PA - [facility] 11/07/2022 08:22:09 Have You Recently Traveled Abroad? No Information not available 11/07/2022 Sex: Unknown Functional Status Question Answer Note LastModified by [employer] Details LastModified Time Do you use any [...] [facility] 11/07/2022 08:16:22 Pneumococcal conjugate PCV20, polysaccharide HLY316 conjugate, adjuvant, PF 3 completed OLIVIA DEPINTO [...] ICD10 Code Diagnosis IMO Codes Diagnosis Note [id number] [address] [address] [place] [address] 05/01/2018 11:10:17 05/01/2018 12:08:27 [id number] [address] [place] [address] 07/04/2018 08:22:27 07/04/2018 08:50:56 [id number] [address] [place] [address] 10/16/2016 13:39:10 10/16/2016 15:34:24 [id number] [address] [place] [address] 10/16/2018 08:16:49 10/16/2018 09:03:27 [id number] [address] [place] [address] 12/05/2016 08:05:07 12/05/2016 09:01:39 [id number] [address] [place] [address] 08/09/2017 08:51:37 08/09/2017 09:35:02 [id number] [address] [place] [address] 08/06/2015 10:01:18 08/06/2015 11:48:14 [id number] [address] [address] [place] [address] 09/15/2016 10:47:05 09/15/2016 12:43:09 [id number] [address] [address] [place] [address] 10/19/2016 14:20:17 10/19/2016 16:00:31 [id number] 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, [employer]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 [address] [place] [address] 11/07/2022 08:06:50 11/07/2022 09:16:29 Acute urinary tract infection 517357791 N39.0 Diabetes m ellitus screening 812767084 Z13.1 Type 2 lois betes mellitus 82604353 E11.22 Health Concerns Section Related Observation LastModified by Organization Detai ls LastModified Time None Recorded Concern Status LastModified by Organization Details LastModified Time None Recorded Advance Directives Directive None Recorded Payers Insurance Date Sequence Insurance Name Policy Number Policy Mercedes Covered Member ID Mercedes Member ID Guarantor Name 11/07/2022 1 [place]: [employer] Genie Harrington [id number] 1 [id number] Genie Harrington 11/07/2022 2 [facility] Genie Grimes-Devin kim [id number] Genie Harrington Notes Date Note Type [...] Pierce NP [address] [place], [address], [place] - [facility] 11/07/2022 09:13:42 OBGyn Episode No OBEpisode recorded.
[2025-07-05 14:53] LABS: Bacterial Vaginosis PCR NEGATIVE (Negative); Candida Group PCR NOT DETECTED (Not Detect); Candida glab krusei PCR DETECTED (Not Detect); Trichomonas vaginalis PCR NOT DETECTED (Not Detect)
== END 2025-07-05 08:46 | disposition home or self-care (01) ==
LOC: HO.LAB 08:45
PROVIDERS: PCP Internal Medicine; Visit Provider Nurse Practitioner Family
DX: N39.0 Urinary tract infection, site not specified (principal); R30.0 Dysuria
CPT/HCPCS: 81003; 81515; 87086; 87088; 87186; 99212